=== PATIENT | female | born 1960 | race Asian ===

== ENCOUNTER 2022-03-11 13:57 | Outpatient (CLI) | payer OTHER, MEDICARE, MEDICAID, SELFPAY | END 2022-03-11 13:58 | disposition home or self-care (01) | LOC: AMB 03-18 09:04 | PROVIDERS: Visit Provider Family Medicine | DX: E11.649 Type 2 diabetes mellitus with hypoglycemia without coma (principal); R41.82 Altered mental status, unspecified | CPT/HCPCS: A0425; A0427 ==

== ENCOUNTER 2022-03-11 14:33 | Observation (INO) | payer OTHER, MEDICARE, MEDICAID, SELFPAY ==
[2022-03-11] VITALS (11 sets, daily range): BP systolic 127–177; BP diastolic 69–86; PULSE 56–62; RESP 10–19; TEMP 36–36.6; O2SAT 98–100; BMI 19.3
--- NOTE | 2022-03-11 15:26 | CRLHL7_ITS ---
For Patients: As a result of the Century Cures Act, medical imaging exams and procedure reports are released immediately into your electronic medical record. You may view this report before your referring provider. If you have questions, please contact your health care provider. INDICATION: AMS. TECHNIQUE: Chest 1 views. COMPARISON: None. FINDINGS/IMPRESSION: Cardiovascular and mediastinum: Mild cardiomegaly. Calcific atherosclerosis of the aorta. Lungs and pleural spaces: Subtle interstitial opacities and left upper lobe pulmonary airspace opacities, which may reflect pulmonary edema, infection.. Possible small left-sided pleural effusion. Bones and soft tissues: Scoliosis of the thoracic spine.. Possible mixed density lesion at the superior aspect of the right scapula. Dictated by Horacio Oneill MD @ 03/11/2022 5:41:25 PM (Electronically Signed)
[2022-03-11 15:53] LABS: Glucose, Point-of-Care* 290 mg/dl (60-115)
[2022-03-11 16:16] LABS: HCO3 VBG 27 mmol/L (21-28); PCO2 VBG 48 mmHG (40-50); PO2 VBG 52.9 mmHG (25-47); pH VBG 7.354 (7.32-7.43)
[2022-03-11] MEDS: 0.9 % SODIUM CHLORIDE 1000 ml 1,000 ML IV (16:18)
--- NOTE | 2022-03-11 16:27 | ED.NURSE ---
Shama monitor alerted daughter to low blood sugar. Shama read 63. POC glucose done at bedside with hospital glucometer, this read 80. updated.
--- NOTE | 2022-03-11 16:31 | ED.NURSE ---
[facility] to [facility], [facility]. Can fax SY to [phone]
[2022-03-11 16:41] LABS: Alanine Aminotransferase* 12 U/L (4-35); Albumin* 3.3 g/dL (3.3-5.0); Alkaline Phosphatase* 32 U/L (40-150); Aspartate Amino Transferase* 27 U/L (12-35); Bilirubin Direct* 0.3 mg/dL (0.0-0.5); Bilirubin Total* 0.6 mg/dL (0.1-1.5); Total Protein* 5.7 g/dL (6.0-8.3)
[2022-03-11 16:43] LABS: C Reactive Protein* 0.6 mg/dL (0.5-1.0)
[2022-03-11 16:45] LABS: Glucose, Point-of-Care* 80 mg/dl (60-115)
[2022-03-11 16:48] LABS: Ethanol* < 0.01 % (0.01-0.03)
[2022-03-11 16:53] LABS: Troponin I* 0.01 ng/mL (0.01-0.04)
--- NOTE | 2022-03-11 16:53 | ED.NURSE ---
[facility] completed [facility] to [facility]
--- NOTE | 2022-03-11 17:24 | CRLHL7_ITS ---
For Patients: As a result of the Century Cures Act, medical imaging exams and procedure reports are released immediately into your electronic medical record. You may view this report before your referring provider. If you have questions, please contact your health care provider. INDICATION: Transient alteration of awareness TECHNIQUE: CT Head without i.v. contrast. Coronal and sagittal reformats were obtained. COMPARISON: None FINDINGS: CSF space: There is a sclerotic, heterogeneous finger-like bony excrescence extending from the superior margin of the cyst left sphenoid sinus into the left suprasellar cistern that measures 0.9 x 2.3 x 2 cm (AP x RL x CC). Brain: No evidence of mass, acute infarction or hemorrhage is seen. No mass-effect or midline shift is seen. Encephalomalacia is present within the left frontal lobe, right temporal lobe, and right cerebellar hemisphere. Calvarium: Mucosal thickening opacification of the left frontal sinus, anterior ethmoid air cells and right sphenoid sinus is seen. The mastoid air cells are clear. The visualized orbits are grossly unremarkable. The patient is status post left frontal craniotomy. IMPRESSIONS: 1. No evidence of acute infarction, intracranial hemorrhage, or mass-effect seen. 2. There is a sclerotic, heterogeneous finger-like bony excrescence extending from the superior margin of the cyst left sphenoid sinus into the left suprasellar cistern that measures 0.9 x 2.3 x 2 cm (AP x RL x CC). Comparison with any prior outside imaging is recommended. Dictated by Zoran Rivera MD @ 03/11/2022 7:01:08 PM Please note that all CT scans at this facility use dose modulation, iterative reconstruction, and/or weight-based dosing when appropriate to reduce radiation dose to as low as reasonably achievable. Dictated by: Zoran Rivera MD @ 03/11/2022 19:01:13 (Electronically Signed)
[2022-03-11 17:25] LABS: SARS PCR* Negative SARS-CoV-2 (Negative)
--- NOTE | 2022-03-11 17:34 | ED_ITS ---
HPI - Altered Mental Status General Chief Complaint: Altered Mental Status Stated Complaint: Confused Time Seen by Provider: 03/11/22 15:04 Source: family, EMS and RN notes reviewed History of Present Illness HPI narrative: At time of initial evaluations no outside records are available 61-year-old woman brought by daughter to the emergency department for evaluation for altered mental status. Daughter called EMS due to worsening mental status, level of alertness, decreasing responsiveness, since last night. Poor appetite. Does have a history of diabetes. Blood sugar measured this morning at 43. EMS noted a blood sugar in the 200s I believe with no change in alertness. Daughter notes so blood sugar monitor sensor been going off overnight. She gave supplemental glucose tried to get her to drink juice even frosting some of this was accepted some of it was spent out. Eventually gave glucagon. Final straw was trying to get to the bathroom today and chest her eyes glazed over. Apparently Ms. Guerrero was hospitalized at the [facility] in [place] for about 3 weeks for a bowel obstruction discharge last week to daughter's residence. During hospitalization daughter reports increased from 5-8 units of Lantus and NovoLog was discontinued she was initiated on metformin. Daughter notes patient to be particularly sensitive to insulin. EMS noted blood sugar 394 on arrival Hospital, or check was reported at 280. has moved to the area in November of 2021 from [place] to live with her daughter. Rather complicated past medical history with new diagnosis of diabetes type 2. Had CVA in 2020. There is brain tumor resection in 1997. In October of this year was reported to have a mass in the uterus that sounds like resulted in more systemic infection, likely abscess, with resistant organisms. Failure to thrive Medications are noted to be (signing), metformin, Lantus, atorvastatin, bisacodyl, clopidogrel, carvedilol, desmopressin, ferrous sulfate, glucagon, levothyroxine, losartan, mirtazapine, prednisone, risperidone, senna Related Data Home Medications Medication Instructions Recorded Confirmed Lactobacillus acidophilus 100 mmu cells PO DAILY 03/12/22 03/12/22 acetaminophen 325 mg tablet 325 - 650 mg PO QID PRN 03/12/22 03/12/22 atorvastatin 20 mg tablet 20 mg PO DAILY 03/12/22 03/12/22 bisacodyl 5 mg tablet,delayed 10 mg PO DAILY PRN 03/12/22 03/12/22 release (Dulcolax (bisacodyl)) calcium carbonate 500 mg calcium 500 mg PO DAILY 03/12/22 03/12/22 (1,250 mg) tablet (Oyster Shell Calcium) carboxymethylcellulose sodium 1 % 2 drp OPHTHALMIC (EYE) QID PRN 03/12/22 03/12/22 eye liquid gel drops (Lubricant Dry Eye Relief) carvedilol 3.125 mg tablet 3.125 mg PO BID 03/12/22 03/12/22 cholecalciferol (vitamin D3) 125 5,000 unit PO DAILY 03/12/22 03/12/22 mcg (5,000 unit) tablet clopidogrel 75 mg tablet (Plavix) 75 mg PO DAILY 03/12/22 03/12/22 cranberry 500 mg capsule 500 mg PO DAILY 03/12/22 03/12/22 desmopressin 10 mcg/spray (0.1 mL) See Rx Instructions INTRANASAL 03/12/22 03/12/22 nasal spray .TWICE WEEKLY ferrous sulfate 325 mg (65 mg 325 mg PO DAILY 03/12/22 03/12/22 iron) tablet insulin glargine 100 unit/mL (3 8 unit SUBCUT QAM 03/12/22 03/12/22 mL) subcutaneous pen levothyroxine 75 mcg tablet 75 mcg PO DAILY 03/12/22 03/12/22 losartan 25 mg tablet 25 mg PO DAILY 03/12/22 03/12/22 metformin 500 mg tablet,extended 1,000 mg PO DAILY 03/12/22 03/12/22 release 24 hr mirtazapine 30 mg tablet 30 mg PO HS 03/12/22 03/12/22 omega-3 fatty acids-vitamin E 1 cap PO DAILY 03/12/22 03/12/22 1,000 mg capsule polyethylene glycol 3350 17 17 g PO DAILY 03/12/22 03/12/22 gram/dose oral powder (Miralax) prednisone 5 mg tablet 5 mg PO DAILY 03/12/22 03/12/22 risperidone 0.25 mg tablet 0.25 mg PO HS 03/12/22 03/12/22 sennosides 8.6 mg tablet (senna) 17.2 mg PO DAILY PRN 03/12/22 03/12/22 vit C 250 mg-E 90 mg-zinc 40 1 tab PO DAILY 03/12/22 03/12/22 mg-copper 1 [id number] chew tablet (PreserVision AREDS-2) Allergies Allergy/AdvReac Type Severity Reaction Status Date / Time ibuprofen Allergy Unknown Verified 03/11/22 23:34 asprin Allergy Unknown Uncoded 03/11/22 23:34 Review of Systems Status of ROS: Reports: unobtainable due to medical condition Narrative: Did query though daughter [facility] Medical History (Updated 03/13/22 @ 11:28 by Justin Martinez MD) Acute encephalopathy Brain tumor Cognitive impairment Constipation CVA (cerebral vascular accident) Depression Diarrhea Failure to thrive in adult Hypertension 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 Pyometra Recurrent urinary tract infection Small bowel obstruction Unspecified behavioral syndromes associated with physiological disturbances and physical factors Uterine abscess Surgical History S/P brain surgery Social History Highest level of school completed/degree received: Associate degree: occupational, technical, vocational program Smoking Status: Never smoker Do you use any of these nicotine containing products: None Second hand tobacco smoke exposure: No How often do you have a drink containing alcohol: never AUDIT-C Alcohol total score: 0 Non-prescribed substance use: denies use Caffeine: Yes (1 cup per day) service: Yes Exam Narrative: Exam Narrative: Smaller stature. Has been well cared for. Eyebrows are penciled in. Cranial nerves 2-12 to be grossly intact; hard of hearing. Hearing aids replaced during exam but does not seem to affect her interaction Supporting airway, breathing easily. GCS of 12. Does not spontaneously initiated any interaction. Will open eyes to inquiry or with manipulation of extremities -- Will say Ow especially when manipulating arm with her IV in it on the left. Also spoke a few sentences in the language that was not Malay. does demonstrate tone in the upper extremities. Hard to elicit in the lower, just let them fall. Skin is warm and dry. Is well perfused peripherally. There is no extremity edema. Head looks to be acutely atraumatic. Neck is supple. Lungs breath sounds throughout. Equal chest rise/expansion and excursion. No indication of trauma on her back. CV RRR to bradycardic. No murmurs rubs or gallops appreciated. Abdomen is soft appears to be nontender. Oropharynx is moist without erythema. Const: Vital Signs, click to edit/add: Vital Signs - 24 hr 03/11/22 14:35 03/11/22 15:30 03/11/22 16:00 Temperature 96.8 F L Pulse Rate [Right Pulse Oximeter] 60 58 L 60 Respiratory Rate 18 14 14 Blood Pressure [Ri ght Upper Arm] 147/71 H 127/74 140/84 H Pulse Oximetry 98 98 99 03/11/22 16:30 03/11/22 17:00 03/11/22 17:06 Temperature Pulse Rate [Right Pulse Oximeter] 61 57 L 57 L Respiratory Rate 19 14 10 L Blood Pressure [Ri ght Upper Arm] 158/86 H 155/74 H Pulse Oximetry 98 100 99 Documenting provider has reviewed patient's vital signs: yes Course Course Hospital Course: Shortly after arrival here blood sugar rechecked at 80 as point of care glucose. Mental status has not changed. Blood sugar around an hour later is 32. To be dosed with D50 and will likely need to initiate drip as she is disinclined towards any oral ingestion. Given cerebrovascular and tumor history, we will be checking a CT head. There are no localizing symptoms otherwise to suggest ischemic stroke. Symptoms seem to be related to either overwhelming infection or metabolic issue or mental health. Initial EKG reviewed by me shows a sinus bradycardia 59 CT head MPRESSIONS: 1. No evidence of acute infarction, intracranial hemorrhage, or mass-effect seen. 2. There is a sclerotic, heterogeneous finger-like bony excrescence extending from the superior margin of the cyst left sphenoid sinus into the left suprasellar cistern that measures 0.9 x 2.3 x 2 cm (AP x RL x CC). Comparison with any prior outside imaging is recommended. Dictated by Zoran Rivera MD @ 03/11/2022 7:01:08 PM Chest xray Towards the end of her time in the ER rec[facility] I don't believe that blood sugars are the predominant issue affecting Ms. Guerrero's cognition/alertness. I believe this is more related to mental health and organic brain injury. Ms. Guerrero did at one point in reassessment, open eyes spontaneously and spoke very clearly to me requesting her many layers of blankets to be tucked up closer to her neck. she was able to articulate where she was upon questioning. Vital Signs Vital signs: Initial Vital Signs Temperature 96.8 F L 03/11/22 14:35 Temperature Source Temporal Artery Scan 03/11/22 14:35 Pulse Rate 60 03/11/22 14:35 Pulse Rhythm 03/11/22 14:35 Pulse Strength 0+ Absent 03/11/22 14:35 Respiratory Rate 18 03/11/22 14:35 Blood Pressure 147/71 H 03/11/22 14:35 Blood Pressure Mean 96 03/11/22 14:35 Blood Pressure Position Sitting 03/11/22 14:35 Pulse Oximetry 98 03/11/22 14:35 Oxygen Delivery Method 03/11/22 14:35 Vital Signs Temperature 96.8 F L 03/11/22 14:35 Pulse Rate 60 03/11/22 14:35 Respiratory Rate 18 03/11/22 14:35 Blood Pressure 147/71 H 03/11/22 14:35 Pulse Oximetry 98 03/11/22 14:35 Temperature 98 F 03/13/22 20:25 Pulse Rate 83 03/14/22 04:00 Respiratory Rate 16 03/14/22 04:00 Blood Pressure 133/68 03/14/22 04:00 Pulse Oximetry 97 03/14/22 04:00 MDM - Altered Mental Status MDM Narrative Medical decision making narrative: See above in course needs to be admitted to monitor/correct/stabilize blood sugars at a minimum. complicated case ID without beds. Dr. Martinez thankfully accepting for admission. Discussed case extensively with him. Medical Records Attestation: I reviewed the patient's medical records. 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 Labs: Lab Results 03/11/22 03/11/22 03/11/22 Range/Units 14:30 16:08 16:08 WBC (4.50-11.00) K/uL RBC (4.00-5.20) m/uL Hgb (12.0-16.0) gm/dL Hct (33.0-51.0) % MCV (80-100) fL MCH (26-34) pg MCHC (32-36) gm/dL RDW Coeff of Shanna (11.5-15.5) % Plt Count (140-440) K/uL Neut % (Auto) (42.0-72.0) % Lymph % (Auto) (20-44) % [place] % (Auto) (0.0-11.0) % Eos % (Auto) (0.0-7.0) % Baso % (Auto) (0.0-3.0) % Neut # (Auto) (1.7-7.0) K/uL Lymph # (Auto) (0.90-2.90) K/uL [place] # (Auto) (0.00-0.90) K/UL Eos # (Auto) (0.00-0.50) K/uL Baso # (Auto) (0.00-0.30) K/uL Abs Immat Gran (auto) (0.00-0.30) K/uL VBG pH 7.354 (7.32-7.43) VBG pCO2 48 (40-50) mmHG VBG pO2 52.9 H (25-47) mmHG VBG HCO3 27 (21-28) mmol/L Sodium 129 L (135-149) mmol/L Potassium 3.1 L (3.6-5.1) mmol/L Chloride 99 (96-114) mmol/L Carbon Dioxide 25 (20-32) mmol/L BUN 20 (7-30) mg/dL Creatinine 0.6 (0.5-1.5) mg/dL Glucose 109 (60-115) mg/dL Venous Lactic Acid (Serial Order) Cancelled Calcium 7.9 L (8.4-10.6) mg/dL Total Bilirubin 0.6 (0.1-1.5) mg/dL Direct Bilirubin 0.3 (0.0-0.5) mg/dL AST 27 (12-35) U/L ALT 12 (4-35) U/L Alkaline Phosphatase 32 L (40-150) U/L Troponin I 0.01 (0.01-0.04) ng/mL C-Reactive Protein 0.6 (0.5-1.0) mg/dL Total Protein 5.7 L (6.0-8.3) g/dL Albumin 3.3 (3.3-5.0) g/dL TSH (0.270-4.20) uIU/mL Urine Color (Yellow) Urine Appearance (Clear) Urine pH (5.0-8.5) Ur Specific [place] (1.000-1.030) Urine Protein (Negative) Urine Glucose (UA) (Negative) Urine Ketones (Negative) Urine Blood (Negative) Urine Nitrite (Negative) Urine Bilirubin (Negative) Urine Urobilinogen (0.2-1.0) Ur Leukocyte Esterase (Negative) Urine RBC (0-2) Urine WBC (0-5) Ur Squamous Epith Cells Urine Bacteria (None) Urine Yeast (None) Urine Opiates Screen (Negative) Ur Oxycodone Screen (Negative) Urine Methadone Screen (Negative) Ur Propoxyphene Screen (Negative) Ur Barbiturates Screen (Negative) U Tricyclic Antidepress (Negative) Ur Phencyclidine Scrn (Negative) Ur Amphetamines Screen (Negative) U Methamphetamines Scrn (Negative) U Benzodiazepines Scrn (Negative) Urine Cocaine Screen (Negative) U Marijuana (THC) Screen (Negative) Ur Drug Screen Comment Ethyl Alcohol < 0.01 L (0.01-0.03) % SARS-CoV-2 (PCR) (Negative) POC Glucose 290 H (60-115) mg/dl 03/11/22 03/11/22 03/11/22 Range/Units 16:08 16:09 16:11 WBC 9.04 (4.50-11.00) K/uL RBC 3.21 L (4.00-5.20) m/uL Hgb 9.7 L (12.0-16.0) gm/dL Hct 29.5 L (33.0-51.0) % MCV 92 (80-100) fL MCH 30 (26-34) pg MCHC 33 (32-36) gm/dL RDW Coeff of Shanna 13.1 (11.5-15.5) % Plt Count 287 (140-440) K/uL Neut % (Auto) 63.9 (42.0-72.0) % Lymph % (Auto) 24.2 (20-44) % [place] % (Auto) 8.2 (0.0-11.0) % Eos % (Auto) 2.1 (0.0-7.0) % Baso % (Auto) 0.9 (0.0-3.0) % Neut # (Auto) 5.78 (1.7-7.0) K/uL Lymph # (Auto) 2.19 (0.90-2.90) K/uL [place] # (Auto) 0.70 (0.00-0.90) K/UL Eos # (Auto) 0.19 (0.00-0.50) K/uL Baso # (Auto) 0.08 (0.00-0.30) K/uL Abs Immat Gran (auto) 0.06 (0.00-0.30) K/uL VBG pH (7.32-7.43) VBG pCO2 (40-50) mmHG VBG pO2 (25-47) mmHG VBG HCO3 (21-28) mmol/L Sodium (135-149) mmol/L Potassium (3.6-5.1) mmol/L Chloride (96-114) mmol/L Carbon Dioxide (20-32) mmol/L BUN (7-30) mg/dL Creatinine (0.5-1.5) mg/dL Glucose (60-115) mg/dL Venous Lactic Acid (Serial Order) Calcium (8.4-10.6) mg/dL Total Bilirubin (0.1-1.5) mg/dL Direct Bilirubin (0.0-0.5) mg/dL AST (12-35) U/L ALT (4-35) U/L Alkaline Phosphatase (40-150) U/L Troponin I (0.01-0.04) ng/mL C-Reactive Protein (0.5-1.0) mg/dL Total Protein (6.0-8.3) g/dL Albumin (3.3-5.0) g/dL TSH 0.115 L (0.270-4.20) uIU/mL Urine Color (Yellow) Urine Appearance (Clear) Urine pH (5.0-8.5) Ur Specific [place] (1.000-1.030) Urine Protein (Negative) Urine Glucose (UA) (Negative) Urine Ketones (Negative) Urine Blood (Negative) Urine Nitrite (Negative) Urine Bilirubin (Negative) Urine Urobilinogen (0.2-1.0) Ur Leukocyte Esterase (Negative) Urine RBC (0-2) Urine WBC (0-5) Ur Squamous Epith Cells Urine Bacteria (None) Urine Yeast (None) Urine Opiates Screen (Negative) Ur Oxycodone Screen (Negative) Urine Methadone Screen (Negative) Ur Propoxyphene Screen (Negative) Ur Barbiturates Screen (Negative) U Tricyclic Antidepress (Negative) Ur Phencyclidine Scrn (Negative) Ur Amphetamines Screen (Negative) U Methamphetamines Scrn (Negative) U Benzodiazepines Scrn (Negative) Urine Cocaine Screen (Negative) U Marijuana (THC) Screen (Negative) Ur Drug Screen Comment Ethyl Alcohol (0.01-0.03) % SARS-CoV-2 (PCR) Negative SARS-CoV-2 (Negative) POC Glucose (60-115) mg/dl 03/11/22 03/11/22 03/11/22 Range/Units 16:20 17:36 18:02 WBC (4.50-11.00) K/uL RBC (4.00-5.20) m/uL Hgb (12.0-16.0) gm/dL Hct (33.0-51.0) % MCV (80-100) fL MCH (26-34) pg MCHC (32-36) gm/dL RDW Coeff of Shanna (11.5-15.5) % Plt Count (140-440) K/uL Neut % (Auto) (42.0-72.0) % Lymph % (Auto) (20-44) % [place] % (Auto) (0.0-11.0) % Eos % (Auto) (0.0-7.0) % Baso % (Auto) (0.0-3.0) % Neut # (Auto) (1.7-7.0) K/uL Lymph # (Auto) (0.90-2.90) K/uL [place] # (Auto) (0.00-0.90) K/UL Eos # (Auto) (0.00-0.50) K/uL Baso # (Auto) (0.00-0.30) K/uL Abs Immat Gran (auto) (0.00-0.30) K/uL VBG pH (7.32-7.43) VBG pCO2 (40-50) mmHG VBG pO2 (25-47) mmHG VBG HCO3 (21-28) mmol/L Sodium (135-149) mmol/L Potassium (3.6-5.1) mmol/L Chloride (96-114) mmol/L Carbon Dioxide (20-32) mmol/L BUN (7-30) mg/dL Creatinine (0.5-1.5) mg/dL Glucose (60-115) mg/dL Venous Lactic Acid (Serial Order) Calcium (8.4-10.6) mg/dL Total Bilirubin (0.1-1.5) mg/dL Direct Bilirubin (0.0-0.5) mg/dL AST (12-35) U/L ALT (4-35) U/L Alkaline Phosphatase (40-150) U/L Troponin I (0.01-0.04) ng/mL C-Reactive Protein (0.5-1.0) mg/dL Total Protein (6.0-8.3) g/dL Albumin (3.3-5.0) g/dL TSH (0.270-4.20) uIU/mL Urine Color (Yellow) Urine Appearance (Clear) Urine pH (5.0-8.5) Ur Specific [place] (1.000-1.030) Urine Protein (Negative) Urine Glucose (UA) (Negative) Urine Ketones (Negative) Urine Blood (Negative) Urine Nitrite (Negative) Urine Bilirubin (Negative) Urine Urobilinogen (0.2-1.0) Ur Leukocyte Esterase (Negative) Urine RBC (0-2) Urine WBC (0-5) Ur Squamous Epith Cells Urine Bacteria (None) Urine Yeast (None) Urine Opiates Screen (Negative) Ur Oxycodone Screen (Negative) Urine Methadone Screen (Negative) Ur Propoxyphene Screen (Negative) Ur Barbiturates Screen (Negative) U Tricyclic Antidepress (Negative) Ur Phencyclidine Scrn (Negative) Ur Amphetamines Screen (Negative) U Methamphetamines Scrn (Negative) U Benzodiazepines Scrn (Negative) Urine Cocaine Screen (Negative) U Marijuana (THC) Screen (Negative) Ur Drug Screen Comment Ethyl Alcohol (0.01-0.03) % SARS-CoV-2 (PCR) (Negative) POC Glucose 80 32 L* 232 H (60-115) mg/dl 0703/11/22 03/11/22 Range/Units 19:07 19:07 21:00 WBC (4.50-11.00) K/uL RBC (4.00-5.20) m/uL Hgb (12.0-16.0) gm/dL Hct (33.0-51.0) % MCV (80-100) fL MCH (26-34) pg MCHC (32-36) gm/dL RDW Coeff of Shanna (11.5-15.5) % Plt Count (140-440) K/uL Neut % (Auto) (42.0-72.0) % Lymph % (Auto) (20-44) % [place] % (Auto) (0.0-11.0) % Eos % (Auto) (0.0-7.0) % Baso % (Auto) (0.0-3.0) % Neut # (Auto) (1.7-7.0) K/uL Lymph # (Auto) (0.90-2.90) K/uL [place] # (Auto) (0.00-0.90) K/UL Eos # (Auto) (0.00-0.50) K/uL Baso # (Auto) (0.00-0.30) K/uL Abs Immat Gran (auto) (0.00-0.30) K/uL VBG pH (7.32-7.43) VBG pCO2 (40-50) mmHG VBG pO2 (25-47) mmHG VBG HCO3 (21-28) mmol/L Sodium (135-149) mmol/L Potassium (3.6-5.1) mmol/L Chloride (96-114) mmol/L Carbon Dioxide (20-32) mmol/L BUN (7-30) mg/dL Creatinine (0.5-1.5) mg/dL Glucose (60-115) mg/dL Venous Lactic Acid (Serial Order) Calcium (8.4-10.6) mg/dL Total Bilirubin (0.1-1.5) mg/dL Direct Bilirubin (0.0-0.5) mg/dL AST (12-35) U/L ALT (4-35) U/L Alkaline Phosphatase (40-150) U/L Troponin I (0.01-0.04) ng/mL C-Reactive Protein (0.5-1.0) mg/dL Total Protein (6.0-8.3) g/dL Albumin (3.3-5.0) g/dL TSH (0.270-4.20) uIU/mL Urine Color Yellow (Yellow) Urine Appearance Clear (Clear) Urine pH 7.0 (5.0-8.5) Ur Specific [place] 1.025 (1.000-1.030) Urine Protein Negative (Negative) Urine Glucose (UA) Trace A (Negative) Urine Ketones Negative (Negative) Urine Blood Negative (Negative) Urine Nitrite Negative (Negative) Urine Bilirubin Negative (Negative) Urine Urobilinogen 0.2 (0.2-1.0) Ur Leukocyte Esterase Negative (Negative) Urine RBC 0-2 (0-2) Urine WBC 0-2 (0-5) Ur Squamous Epith Cells Not Reportable Urine Bacteria Few A (None) Urine Yeast Moderate A (None) Urine Opiates Screen Negative (Negative) Ur Oxycodone Screen Negative (Negative) Urine Methadone Screen Negative (Negative) Ur Propoxyphene Screen Negative (Negative) Ur Barbiturates Screen Negative (Negative) U Tricyclic Antidepress Negative (Negative) Ur Phencyclidine Scrn Negative (Negative) Ur Amphetamines Screen Negative (Negative) U Methamphetamines Scrn Negative (Negative) U Benzodiazepines Scrn Negative (Negative) Urine Cocaine Screen Negative (Negative) U Marijuana (THC) Screen Negative (Negative) Ur Drug Screen Comment See Note Ethyl Alcohol (0.01-0.03) % SARS-CoV-2 (PCR) (Negative) POC Glucose 239 H (60-115) mg/dl Discharge Plan Discharge Clinical Impression: Hypoglycemia, Altered mental status Patient Disposition: Admitted As Inpatient Condition: Stable
--- NOTE | 2022-03-11 17:40 | ED.NURSE ---
Fluids infused. FSG rechecked and 32. notified and 50% Dextrose 25g administered via left AC IV.
[2022-03-11 17:44] LABS: Basophils Absolute Auto 0.08 K/uL (0.00-0.30); Basophils Percent Auto 0.9 % (0.0-3.0); Eosinophils Absolute Auto 0.19 K/uL (0.00-0.50); Eosinophils Percent Auto 2.1 % (0.0-7.0); Hematocrit 29.5 % (33.0-51.0); Hemoglobin* 9.7 gm/dL (12.0-16.0); Immature Granulocytes Abs Auto 0.06 K/uL (0.00-0.30); Lymphocytes Absolute Auto 2.19 K/uL (0.90-2.90); Lymphocytes Percent Auto 24.2 % (20-44); Mean Corpuscular HGB Conc 33 gm/dL (32-36); Mean Corpuscular Hemoglobin 30 pg (26-34); Mean Corpuscular Volume 92 fL (80-100); Monocytes Percent Auto 8.2 % (0.0-11.0); Neutrophils Absolute Auto 5.78 K/uL (1.7-7.0); Neutrophils Percent Auto 63.9 % (42.0-72.0); Platelet Count* 287 K/uL (140-440); RDW Coefficient of Variation % 13.1 % (11.5-15.5); Red Blood Count 3.21 m/uL (4.00-5.20); White Blood Count* 9.04 K/uL (4.50-11.00)
[2022-03-11 17:48] LABS: Glucose, Point-of-Care* 32 mg/dl (60-115)
[2022-03-11 17:52] LABS: Slide Review Reflex No
--- NOTE | 2022-03-11 18:06 | ED.NURSE ---
FSG recheck since critical [id number] at 1802. MD updated
[2022-03-11 18:12] LABS: Glucose, Point-of-Care* 232 mg/dl (60-115)
[2022-03-11 18:17] LABS: Blood Urea Nitrogen* 20 mg/dL (7-30); Carbon Dioxide* 25 mmol/L (20-32); Chloride* 99 mmol/L (96-114); Creatinine* 0.6 mg/dL (0.5-1.5); Estimated Glomerular Filt Rate 102.69; Potassium* 3.1 mmol/L (3.6-5.1); Sodium* 129 mmol/L (135-149)
[2022-03-11 18:18] LABS: Calcium* 7.9 mg/dL (8.4-10.6); Glucose* 109 mg/dL (60-115)
[2022-03-11] MEDS: DEXTROSE 50 % SYRINGE IVP (18:18)
[2022-03-11] MEDS: 5 % DEXTROSE/0.9% SOD CHLORIDE 1,000 ML 125 ML IV (18:42)
[2022-03-11 18:45] LABS: Thyroid Stimulating Hormone* 0.115 uIU/mL (0.270-4.20)
--- NOTE | 2022-03-11 19:16 | ED.NURSE ---
Straight Cath done to obtain UA/UC. Drained 300ml light/clear urine.
[2022-03-11 19:21] LABS: Appearance Urine Clear (Clear); Bilirubin Urine Negative (Negative); Blood Urine Negative (Negative); Color Urine Yellow (Yellow); Glucose Urine Trace (Negative); Ketones Urine Negative (Negative); Leukocyte Esterase Urine Negative (Negative); Nitrite Urine Negative (Negative); Protein Urine Negative (Negative); Specific Gravity Urine 1.025 (1.000-1.030); Urobilinogen Urine 0.2 (0.2-1.0)
[2022-03-11 19:43] LABS: RBC Urine 0-2 (0-2)
[2022-03-11 19:46] LABS: Bacteria Urine Few; WBC Urine 0-2 (0-5)
[2022-03-11 21:18] LABS: Glucose, Point-of-Care* 239 mg/dl (60-115)
--- NOTE | 2022-03-11 22:00 | ED.NURSE ---
Patient complained of pain in IV. No obvious sign of infiltration but IV pulled to rotate IV site. Will transfer to floor with and greenhouse assistant will insert new IV.
--- NOTE | 2022-03-11 22:27 | PM.IMHP1 ---
Hospitalist- H&P: HPI History of Present Illness Time Seen by Provider: 22:26 Date Seen: 03/11/22 Chief complaint: Confused Narrative: Oneyda Guerrero is a 61 year old female brought in by her daughter for hypoglycemia. patient has a long and complicated history outlined below. The proximal reason for presentation today is hypoglycemia. Patient has probable type 2 diabetes but with a low C-peptide. . She has been treated with Lantus 8 units daily plus metformin 1000 mg daily since being discharged from the [facility] week ago. She got her normal medicines yesterday and had blood sugars around 200 in the morning. She stopped eating during the day despite her daughter's urging her to eat. Her daughter continue to watch her blood sugar and found her blood sugars declining down to 50 and below during the night. The patient refused glucose supplements from her daughter and when her daughter tried to force glucose gel and glucose tablets into her mouth she spit them out. daughter was up all night trying to force her mom to take in carbohydrates and checking her blood sugar. Patient was living in [place] last summer. It sounds like she was not doing well at the time. Her son was supposed to be taking care of her but it sounds like she was neglected to some degree. She was losing a lot of weight. There is some question of whether there was ongoing mental health problems contributing as well. She was hospitalized in [place] after a stroke in May 2021 . Also diagnosed with a UTI at that time. Unclear what specific affects the stroke caused at that time. She was sent to rehab from the hospital. She ended up back in the hospital in August with apparently another stroke and UTI. She was again sent to rehab. She apparently has had episodes where she seems delirious or confused during this time as well. The daughter is only contact was by phone as she was unable to visit due to COVID. Sounds like she was also not eating well and not participating with rehab cares. Possibly refusing medications. She was diagnosed with a uterine infection. This was apparently drained twice, most recently in December. She was moved to [place] with her daughter in November. 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 She had constipation with nausea and vomiting. she had evaluation from Infectious Disease regarding her pyometra and they recommended no further investigation as she was not having symptoms And had a normal CT. 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 They recommended a C-peptide to evaluate her diabetes. Her C-peptide was borderline low. She was discharged on Lantus and metformin. He had previously been on NovoLog but there was concern that she would not be able to manage it. She had a psychiatry consult which according to the daughter was quite limited and primarily focused on whether not she was suicidal and was felt that she was at low risk. She has been started on risperidone and continued on mirtazapine for possible depression. She had an MRI MRA of the brain which was stable and otherwise unremarkable for new tumor or new stroke. Her daughter gives mostly history today she reports that there have been substantial behavioral problems since she moved to [place]. The daughter believes much of this started with her stroke in May but there are suggestions at there were significant issues prior to that including her inability to live independently and her weight loss. There may have been prior mental illness diagnosis including depression which may be longstanding. The behavioral problems the daughter has witnessed include observing that she is refusing cares including refusing to eat and refusing to do any activity. She can refuse her medications and even refused to cooperate with her daughter trying to provide her care. When she is doing better she exhibits more impulsive behavior and will even do quite unsafe behaviors. On 1 occasion she was sitting in a wheelchair at the top of a driveway that was quite steep and she had unlocked the wheels. The daughter lock the wheelchair and asked her mom to be more careful. Few minutes later the wheelchair was unlocked again. The daughter was driving down the road on 1 occasion when her mom opened the door while they were traveling at about 30 miles an hour. These incidences led to questions about suicidality. At time she can be quite confused and there was a question of some form of cognitive impairment. This is hard to assess as the patient often is relatively non communicative. That is the case when I visit with her now when she will answer simple questions only in a limited fashion. Review of Systems Narrative: the only symptom the patient report to me is she is feeling cold. See above for other details of the past 10 months. According to the daughter she has been hospitalized 9 times in the past 10 months. 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 She reports that her mom generally takes the medications from her but has been resistant to taking medications from maritza Allergies Allergy/AdvReac Type Severity Reaction Status Date / Time No Known Drug Allergies Allergy Verified 03/11/22 17:21 Exam Narrative: Exam Narrative: She is lying in the bed covered with multiple layers of blankets. She has dysconjugate gaze which is secondary to her surgery for pituitary tumor. Oropharynx with moist mucous membranes. Neck is supple without mass or adenopathy. Respirations are clear to auscultation. Breathing is unlabored. Cardiovascular: S1, S2, regular rate and rhythm. Abdomen: Bowel sounds active. Abdomen is soft. She has mild suprapubic discomfort which she describes as bladder discomfort and urge to void. Abdomen is otherwise without tenderness or mass. extremities are somewhat cool to touch. She has intact pulses. She moves all 4 extremities well. Const: Vital Signs, click to edit/add: Vital Signs - 24 hr 03/11/22 14:35 03/11/22 15:30 03/11/22 16:00 Temperature 96.8 F L Pulse Rate [Right Pulse Oximeter] 60 58 L 60 Respiratory Rate 18 14 14 Blood Pressure [Ri ght Upper Arm] 147/71 H 127/74 140/84 H Pulse Oximetry 98 98 99 03/11/22 16:30 03/11/22 17:00 03/11/22 17:06 Temperature Pulse Rate [Right Pulse Oximeter] 61 57 L 57 L Respiratory Rate 19 14 10 L Blood Pressure [Ri ght Upper Arm] 158/86 H 155/74 H Pulse Oximetry 98 100 99 03/11/22 21:00 Temperature Pulse Rate [Right Pulse Oximeter] 57 L Respiratory Rate 13 Blood Pressure [Ri ght Upper Arm] 177/86 H Pulse Oximetry 99 Documenting provider has reviewed patient's vital signs: yes Hospitalist - H&P: Result Labs Labs: Short CBC 03/11/22 Range/Units 16:11 WBC 9.04 (4.50-11.00) K/uL Hgb 9.7 L (12.0-16.0) gm/dL Hct 29.5 L (33.0-51.0) % Plt Count 287 (140-440) K/uL BMP 03/11/22 16:08 Sodium 129 L Potassium 3.1 L Chloride 99 Carbon Dioxide 25 BUN 20 Creatinine 0.6 Glucose 109 Calcium 7.9 L Cardiac Enzymes 03/11/22 Range/Units 16:08 Troponin I 0.01 (0.01-0.04) ng/mL Liver Function 03/11/22 Range/Units 16:08 Total Bilirubin 0.6 (0.1-1.5) mg/dL Direct Bilirubin 0.3 (0.0-0.5) mg/dL AST 27 (12-35) U/L ALT 12 (4-35) U/L Alkaline Phosphatase 32 L (40-150) U/L Albumin 3.3 (3.3-5.0) g/dL Urine 03/11/22 Range/Units 19:07 Urine Color Yellow (Yellow) Urine Appearance Clear (Clear) Urine pH 7.0 (5.0-8.5) Ur Specific [place] 1.025 (1.000-1.030) Urine Protein Negative (Negative) Urine Glucose (UA) Trace A (Negative) Assessment and Plan Assessment and plan (1) Cognitive impairment: Status: Acute (2) Diabetes mellitus type 1.5: Problem comment: type 2 diabetes with a borderline low C-peptide at the [facility] in February 2022 . Because her p.o. intake is very unreliable I am going to stop her Lantus and manage her with mealtime insulin only when she eats and sliding scale insulin only when her blood sugars are high for now. Status: Acute (3) Hypoglycemia: Status: Acute (4) Altered mental status: Status: Acute (5) Unspecified behavioral syndromes associated with physiological disturbances and physical factors: Problem comment: I believe this is her primary problem and she would benefit from more intensive psychiatric evaluation and management. This is not currently available. For now will manage her other medical problems and attempt to better understand her neuropsych problems. Status: Acute
[2022-03-12] MEDS: carvediloL 6.25 MG TABLET 3.125 MG PO ×3 (00:23→17:58)
[2022-03-12] MEDS: risperiDONE 0.5 MG TABLET PO ×3 (00:24→21:23)
[2022-03-12] MEDS: ATORVASTATIN 10 MG TABLET 20 MG PO ×2 (00:24→21:25)
[2022-03-12] MEDS: MIRTAZAPINE 15 MG TABLET PO ×2 (00:24→21:24)
[2022-03-12] MEDS: 5 % DEX/0.9 SOD CHL+KCL 20 mEq 1,000 ML 75 ML IV ×2 (00:26→13:45)
[2022-03-12 01:58] VITALS: BP 136/73; RESP 18; TEMP 36.6; O2SAT 99
[2022-03-12 03:06] VITALS: BP 151/68; PULSE 56; RESP 14; TEMP 36.6; O2SAT 98
--- NOTE | 2022-03-12 06:32 | PC.NURSE ---
patient sleepy but cooperative, BLACKFEET, incontinent of B&B, turn/repo/changed in bed this shift. appears to have slept well with no c/o pain, no nausea.
[2022-03-12 07:18] LABS: Basophils Absolute Auto 0.08 K/uL (0.00-0.30); Basophils Percent Auto 1.1 % (0.0-3.0); Eosinophils Absolute Auto 0.27 K/uL (0.00-0.50); Eosinophils Percent Auto 3.7 % (0.0-7.0); Hematocrit 29.7 % (33.0-51.0); Immature Granulocytes Abs Auto 0.09 K/uL (0.00-0.30); Lymphocytes Absolute Auto 2.24 K/uL (0.90-2.90); Lymphocytes Percent Auto 30.6 % (20-44); Mean Corpuscular HGB Conc 34 gm/dL (32-36); Mean Corpuscular Hemoglobin 31 pg (26-34); Mean Corpuscular Volume 91 fL (80-100); Monocytes Percent Auto 9.2 % (0.0-11.0); Neutrophils Absolute Auto 3.97 K/uL (1.7-7.0); Neutrophils Percent Auto 54.2 % (42.0-72.0); Platelet Count* 268 K/uL (140-440); RDW Coefficient of Variation % 12.9 % (11.5-15.5); Red Blood Count 3.26 m/uL (4.00-5.20); White Blood Count* 7.32 K/uL (4.50-11.00)
[2022-03-12 07:21] LABS: Slide Review Reflex No
[2022-03-12 07:29] LABS: Albumin* 2.7 g/dL (3.3-5.0); Chloride* 98 mmol/L (96-114)
[2022-03-12 07:30] LABS: Potassium* 3.1 mmol/L (3.6-5.1); Sodium* 126 mmol/L (135-149)
[2022-03-12 07:32] LABS: Aspartate Amino Transferase* 23 U/L (12-35); Bilirubin Total* 0.4 mg/dL (0.1-1.5); Carbon Dioxide* 25 mmol/L (20-32); Creatinine* 0.6 mg/dL (0.5-1.5); Est. Creatinine Clearance* 69.26; Estimated Glomerular Filt Rate 102.69
[2022-03-12 07:33] LABS: Alanine Aminotransferase* 11 U/L (4-35); Alkaline Phosphatase* 36 U/L (40-150); Blood Urea Nitrogen* 10 mg/dL (7-30); Calcium* 6.9 mg/dL (8.4-10.6); Glucose* 89 mg/dL (60-115); Total Protein* 5.2 g/dL (6.0-8.3)
[2022-03-12 07:34] LABS: Hemoglobin A1C* 8.67 % (0-5.6)
[2022-03-12 08:48] VITALS: BP 154/70; PULSE 59; RESP 16; TEMP 36.5; O2SAT 98
[2022-03-12] MEDS: CLOPIDOGREL 75 MG TABLET PO (10:17)
[2022-03-12] MEDS: predniSONE 5 MG TABLET PO (11:00)
[2022-03-12] MEDS: LOSARTAN POTASSIUM 50 MG TABLET PO (11:01)
--- NOTE | 2022-03-12 13:30 | P.IMPN_ITS ---
Progress Note: A&P Assessment and plan (1) Unspecified behavioral syndromes associated with physiological disturbances and physical factors: Problem details: I believe this is her primary problem and she would benefit from more intensive psychiatric evaluation and management. This is not currently available. For now will manage her other medical problems and attempt to better understand her neuropsych problems. Risperidone increased to 0.5 mg b.i.d. continue to monitor cooperation with cares Status: Acute (2) Cognitive impairment: Problem details: continue to assess Status: Acute (3) Diabetes mellitus type 1.5: Problem details: type 2 diabetes with a borderline low C-peptide at the [facility] in February 2022 . Because her p.o. intake is very unreliable I am going to stop her Lantus and manage her with mealtime insulin only when she eats and sliding scale insulin only when her blood sugars are high for now. 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 Subjective Time Seen by Provider: 12:00 Date Seen: 03/12/22 Interval history: 61-year-old female seen in followup of hospital admission for multiple medical problems and difficult behaviors. Nursing staff note some concerns about willingness to take medications that are prescribed. She did not eat any breakfast this morning but she has shown and interest in eating lunch. Insulin has been switched to NovoLog given for sliding scale and with mealtimes when she does eat. She has had no further hypoglycemia. She tells me today she still cold but has no other complaints. She does know she is in [facility] but does not know why she is here Other than diabetes trouble. Exam Narrative: Exam Narrative: She is sitting up in a chair. She appears in no distress. Dysconjugate gaze is noted. No other facial asymmetry. Respirations are clear to auscultation. Cardiovascular: S1, S2, regular rate and rhythm. No murmur gallop or rub. Ab domen is soft without tenderness or mass. She moves all 4 extremities well. Extremities are slightly cool to touch. Const: Vital Signs, click to edit/add: Vital Signs - 24 hr 03/11/22 14:35 03/11/22 15:30 03/11/22 16:00 Temperature 96.8 F L Pulse Rate [Left P ulse Oximeter] Pulse Rate [Right Pulse Oximeter] 60 58 L 60 Respiratory Rate 18 14 14 Blood Pressure [Le ft Arm] Blood Pressure [Ri ght Forearm] Blood Pressure [Ri ght Upper Arm] 147/71 H 127/74 140/84 H Pulse Oximetry 98 98 99 03/11/22 16:30 03/11/22 17:00 03/11/22 17:06 Temperature Pulse Rate [Left P ulse Oximeter] Pulse Rate [Right Pulse Oximeter] 61 57 L 57 L Respiratory Rate 19 14 10 L Blood Pressure [Le ft Arm] Blood Pressure [Ri ght Forearm] Blood Pressure [Ri ght Upper Arm] 158/86 H 155/74 H Pulse Oximetry 98 100 99 03/11/22 21:00 03/11/22 21:25 03/11/22 22:00 Temperature 98 F Pulse Rate [Left P ulse Oximeter] Pulse Rate [Right Pulse Oximeter] 57 L 62 Respiratory Rate 13 18 18 Blood Pressure [Le ft Arm] 136/73 Blood Pressure [Ri ght Forearm] 150/78 H Blood Pressure [Ri ght Upper Arm] 177/86 H Pulse Oximetry 99 99 100 03/11/22 22:51 03/11/22 22:53 03/12/22 01:58 Temperature 98 F 98 F Pulse Rate [Left P ulse Oximeter] Pulse Rate [Right Pulse Oximeter] 56 L Respiratory Rate 17 18 18 Blood Pressure [Le ft Arm] 136/73 136/73 Blood Pressure [Ri ght Forearm] 161/73 H Blood Pressure [Ri ght Upper Arm] Pulse Oximetry 99 99 03/12/22 03:06 03/12/22 08:48 Temperature 98 F 97.7 F Pulse Rate [Left P ulse Oximeter] 56 L 59 L Pulse Rate [Right Pulse Oximeter] Respiratory Rate 14 16 Blood Pressure [Le ft Arm] 151/68 H 154/70 H Blood Pressure [Ri ght Forearm] Blood Pressure [Ri ght Upper Arm] Pulse Oximetry 98 98 Documenting provider has reviewed patient's vital signs: yes Labs Labs: Laboratory Results - last 24 hr 03/11/22 03/11/22 03/11/22 14:30 16:08 16:08 WBC RBC Hgb Hct MCV MCH MCHC RDW Coeff of Shanna Plt Count Neut % (Auto) Lymph % (Auto) [place] % (Auto) Eos % (Auto) Baso % (Auto) Neut # (Auto) Lymph # (Auto) [place] # (Auto) Eos # (Auto) Baso # (Auto) Abs Immat Gran (auto) VBG pH 7.354 VBG pCO2 48 VBG pO2 52.9 H VBG HCO3 27 Sodium 129 L Potassium 3.1 L Chloride 99 Carbon Dioxide 25 BUN 20 Creatinine 0.6 Estimated Creat Clear Glucose 109 Hemoglobin A1c Venous Lactic Acid (Serial Order) Cancelled Calcium 7.9 L Magnesium Total Bilirubin 0.6 Direct Bilirubin 0.3 AST 27 ALT 12 Alkaline Phosphatase 32 L Troponin I 0.01 C-Reactive Protein 0.6 Total Protein 5.7 L Albumin 3.3 TSH Urine Color Urine Appearance Urine pH Ur Specific [place] Urine Protein Urine Glucose (UA) Urine Ketones Urine Blood Urine Nitrite Urine Bilirubin Urine Urobilinogen Ur Leukocyte Esterase Urine RBC Urine WBC Ur Squamous Epith Cells Urine Bacteria Urine Yeast Ur Drug Screen Comment Ethyl Alcohol < 0.01 L SARS-CoV-2 (PCR) POC Glucose 290 H 03/11/22 03/11/22 03/11/22 16:08 16:09 16:11 WBC 9.04 RBC 3.21 L Hgb 9.7 L Hct 29.5 L MCV 92 MCH 30 MCHC 33 RDW Coeff of Shanna 13.1 Plt Count 287 Neut % (Auto) 63.9 Lymph % (Auto) 24.2 [place] % (Auto) 8.2 Eos % (Auto) 2.1 Baso % (Auto) 0.9 Neut # (Auto) 5.78 Lymph # (Auto) 2.19 [place] # (Auto) 0.70 Eos # (Auto) 0.19 Baso # (Auto) 0.08 Abs Immat Gran (auto) 0.06 VBG pH VBG pCO2 VBG pO2 VBG HCO3 Sodium Potassium Chloride Carbon Dioxide BUN Creatinine Estimated Creat Clear Glucose Hemoglobin A1c Venous Lactic Acid (Serial Order) Calcium Magnesium Total Bilirubin Direct Bilirubin AST ALT Alkaline Phosphatase Troponin I C-Reactive Protein Total Protein Albumin TSH 0.115 L Urine Color Urine Appearance Urine pH Ur Specific [place] Urine Protein Urine Glucose (UA) Urine Ketones Urine Blood Urine Nitrite Urine Bilirubin Urine Urobilinogen Ur Leukocyte Esterase Urine RBC Urine WBC Ur Squamous Epith Cells Urine Bacteria Urine Yeast Ur Drug Screen Comment Ethyl Alcohol SARS-CoV-2 (PCR) Negative SARS-CoV-2 POC Glucose 03/11/22 03/11/22 03/11/22 16:20 17:36 18:02 WBC RBC Hgb Hct MCV MCH MCHC RDW Coeff of Shanna Plt Count Neut % (Auto) Lymph % (Auto) [place] % (Auto) Eos % (Auto) Baso % (Auto) Neut # (Auto) Lymph # (Auto) [place] # (Auto) Eos # (Auto) Baso # (Auto) Abs Immat Gran (auto) VBG pH VBG pCO2 VBG pO2 VBG HCO3 Sodium Potassium Chloride Carbon Dioxide BUN Creatinine Estimated Creat Clear Glucose Hemoglobin A1c Venous Lactic Acid (Serial Order) Calcium Magnesium Total Bilirubin Direct Bilirubin AST ALT Alkaline Phosphatase Troponin I C-Reactive Protein Total Protein Albumin TSH Urine Color Urine Appearance Urine pH Ur Specific [place] Urine Protein Urine Glucose (UA) Urine Ketones Urine Blood Urine Nitrite Urine Bilirubin Urine Urobilinogen Ur Leukocyte Esterase Urine RBC Urine WBC Ur Squamous Epith Cells Urine Bacteria Urine Yeast Ur Drug Screen Comment Ethyl Alcohol SARS-CoV-2 (PCR) POC Glucose 80 32 L* 232 H 03/11/22 03/11/22 03/11/22 19:07 19:07 21:00 WBC RBC Hgb Hct MCV MCH MCHC RDW Coeff of Shanna Plt Count Neut % (Auto) Lymph % (Auto) [place] % (Auto) Eos % (Auto) Baso % (Auto) Neut # (Auto) Lymph # (Auto) [place] # (Auto) Eos # (Auto) Baso # (Auto) Abs Immat Gran (auto) VBG pH VBG pCO2 VBG pO2 VBG HCO3 Sodium Potassium Chloride Carbon Dioxide BUN Creatinine Estimated Creat Clear Glucose Hemoglobin A1c Venous Lactic Acid (Serial Order) Calcium Magnesium Total Bilirubin Direct Bilirubin AST ALT Alkaline Phosphatase Troponin I C-Reactive Protein Total Protein Albumin TSH Urine Color Yellow Urine Appearance Clear Urine pH 7.0 Ur Specific [place] 1.025 Urine Protein Negative Urine Glucose (UA) Trace A Urine Ketones Negative Urine Blood Negative Urine Nitrite Negative Urine Bilirubin Negative Urine Urobilinogen 0.2 Ur Leukocyte Esterase Negative Urine RBC 0-2 Urine WBC 0-2 Ur Squamous Epith Cells Not Reportable Urine Bacteria Few A Urine Yeast Moderate A Ur Drug Screen Comment See Note Ethyl Alcohol SARS-CoV-2 (PCR) POC Glucose 239 H 03/12/22 03/12/22 03/12/22 06:11 06:11 06:11 WBC 7.32 RBC 3.26 L Hgb 10.0 L Hct 29.7 L MCV 91 MCH 31 MCHC 34 RDW Coeff of Shanna 12.9 Plt Count 268 Neut % (Auto) 54.2 Lymph % (Auto) 30.6 [place] % (Auto) 9.2 Eos % (Auto) 3.7 Baso % (Auto) 1.1 Neut # (Auto) 3.97 Lymph # (Auto) 2.24 [place] # (Auto) 0.70 Eos # (Auto) 0.27 Baso # (Auto) 0.08 Abs Immat Gran (auto) 0.09 VBG pH VBG pCO2 VBG pO2 VBG HCO3 Sodium 126 L Potassium 3.1 L Chloride 98 Carbon Dioxide 25 BUN 10 Creatinine 0.6 Estimated Creat Clear 69.26 Glucose 89 Hemoglobin A1c 8.67 H Venous Lactic Acid (Serial Order) Calcium 6.9 L Magnesium 1.0 L Total Bilirubin 0.4 Direct Bilirubin AST 23 ALT 11 Alkaline Phosphatase 36 L Troponin I C-Reactive Protein Total Protein 5.2 L Albumin 2.7 L TSH Urine Color Urine Appearance Urine pH Ur Specific [place] Urine Protein Urine Glucose (UA) Urine Ketones Urine Blood Urine Nitrite Urine Bilirubin Urine Urobilinogen Ur Leukocyte Esterase Urine RBC Urine WBC Ur Squamous Epith Cells Urine Bacteria Urine Yeast Ur Drug Screen Comment Ethyl Alcohol SARS-CoV-2 (PCR) POC Glucose
[2022-03-12] MEDS: 5 % DEX/0.9 SOD CHL+KCL 20 mEq 1,000 ML 50 ML IV (15:00)
[2022-03-12 15:25] LABS: Amphetamine Screen Urine Negative (Negative); Barbiturate Screen Urine Negative (Negative); Benzodiazepines Screen Urine Negative (Negative); Cannabinoid Screen Urine Negative (Negative); Cocaine Screen Urine Negative (Negative); Methadone Screen Urine Negative (Negative); Methamphetamines Screen Urine Negative (Negative); Opiate Screen Urine Negative (Negative); Oxycodone Screen Urine Negative (Negative); Phencyclidine Screen Urine Negative (Negative); Tricyclic Antidepressant Urine Negative (Negative)
[2022-03-12 15:38] VITALS: BP 124/54; PULSE 69; RESP 16; TEMP 36.4; O2SAT 98
--- NOTE | 2022-03-12 18:33 | PC.NURSE ---
Shift Summary: Patient up with one assist, walker and gait belt. Is easily distracted while ambulating, needs frequent cueing on how to appropriately use walker. Refusing medications this morning, after reapproaching for the fourth time patient agreed to taking some medications with her meals. Incontinent of urine, was continent of bowel. Tolerating regular diet, has good appetite. Vitals stable and WNL. Denies pain, nausea or SOB.
[2022-03-12 19:00] VITALS: BP 126/67; PULSE 75; RESP 18; TEMP 36.6; O2SAT 98
[2022-03-12 23:26] VITALS: BP 117/51; PULSE 65; RESP 18; TEMP 36.4; O2SAT 97
[2022-03-13] VITALS (7 sets, daily range): BP systolic 120–149; BP diastolic 71–81; PULSE 65–87; RESP 14–20; TEMP 36.6–37.2; O2SAT 96–99
--- NOTE | 2022-03-13 05:33 | PC.NURSE ---
[id number]: patient more alert this evening, cooperative with HS cares and taking medications, patient does not use call light. assist of 1 for ambulation with walker and gait belt, somewhat unsteady gait. appears to have slept well overnight.
[2022-03-13 08:16] LABS: Basophils Percent Auto 0.4 % (0.0-3.0); Eosinophils Percent Auto 1.4 % (0.0-7.0); Hematocrit 30.2 % (33.0-51.0); Hemoglobin* 9.9 gm/dL (12.0-16.0); Immature Granulocytes Abs Auto 0.06 K/uL (0.00-0.30); Mean Corpuscular HGB Conc 33 gm/dL (32-36); Mean Corpuscular Hemoglobin 31 pg (26-34); Mean Corpuscular Volume 94 fL (80-100); Monocytes Percent Auto 8.1 % (0.0-11.0); Neutrophils Percent Auto 74.6 % (42.0-72.0); Platelet Count* 265 K/uL (140-440); RDW Coefficient of Variation % 13.2 % (11.5-15.5); Red Blood Count 3.22 m/uL (4.00-5.20); White Blood Count* 11.19 K/uL (4.50-11.00)
[2022-03-13 08:24] LABS: Chloride* 111 mmol/L (96-114)
[2022-03-13 08:25] LABS: Potassium* 4.2 mmol/L (3.6-5.1); Sodium* 136 mmol/L (135-149)
[2022-03-13 08:28] LABS: Blood Urea Nitrogen* 16 mg/dL (7-30); Carbon Dioxide* 23 mmol/L (20-32); Creatinine* 0.8 mg/dL (0.5-1.5); Est. Creatinine Clearance* 51.94; Glucose* 350 mg/dL (60-115)
[2022-03-13 08:29] LABS: Calcium* 7.7 mg/dL (8.4-10.6); Magnesium* 1.3 mg/dL (1.5-2.6); Slide Review Reflex No
[2022-03-13] MEDS: THIAMINE 100 MG TABLET PO (09:27)
[2022-03-13] MEDS: carvediloL 6.25 MG TABLET 3.125 MG PO ×2 (09:28→17:52)
[2022-03-13] MEDS: predniSONE 5 MG TABLET PO (09:28)
[2022-03-13] MEDS: FERROUS SULFATE 325 MG TABLET PO (09:28)
[2022-03-13] MEDS: CLOPIDOGREL 75 MG TABLET PO (09:28)
[2022-03-13] MEDS: risperiDONE 0.5 MG TABLET PO ×2 (09:28→21:16)
[2022-03-13] MEDS: LOSARTAN POTASSIUM 50 MG TABLET PO (09:28)
--- NOTE | 2022-03-13 11:22 | PM.IMPN1 ---
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 This is not currently available. For now will manage her other medical problems and attempt to better understand her neuropsych problems. Risperidone increased to 0.5 mg b.i.d. continue to monitor cooperation with cares Status: Acute (2) Cognitive impairment: Problem details: continue to assess Status: Acute (3) Diabetes mellitus type 1.5: Problem details: type 2 diabetes with a borderline low C-peptide at the OR in February 2022 . Because her p.o. intake is very unreliable I am going to stop her Lantus and manage her with mealtime insulin only when she eats and sliding scale insulin only when her blood sugars are high for now. Continue to adjust insulin strategy to her blood sugars and oral intake. Status: Acute (4) Hypoglycemia: Problem details: this has resolved now that patient is eating regularly. . Status: Acute (5) Altered mental status: Problem details: She has had relatively normal mental status. No episodes where she is seemed unresponsive or delirious. Status: Acute (6) Malnutrition: Problem details: continue to encourage food and fluids . Much improved oral intake today. 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 Nursing staff note she has been eating fairly well. When she was admitted she was reporting being very cold which I suspected might have been due to her refusing to eat. She has now warmed up and not requiring multiple levels of blankets. She reports no shortness of breath and no chest pain. She exhibits fair recall of some very specific things like her nurses names and her medications. She asked the nurse for her desmopressin which she takes on Wednesdays and Sundays. At other time she is quite confused and unable to fully comprehend her circumstances. She told the nurse today that she was getting insulin infused through her continuous glucose monitor. Exam Narrative: Exam Narrative: She is alert and appears in no distress. Sitting up in a chair. She is wearing bifocal glasses but appears to look over her glasses and squint with her right eye closed to read and to look at me. She answers questions appropriately but inconsistently. Speech is fluent. Respirations are clear to auscultation. Cardiovascular: S1, S2, regular rate and rhythm. Abdomen: Bowel sounds active. Abdomen is soft without tenderness or mass. Extremities with trace edema. She has good capillary refill. extremities are warm today Const: Vital Signs, click to edit/add: Vital Signs - 24 hr 03/12/22 15:38 03/12/22 19:00 03/12/22 23:26 Temperature 97.6 F 98 F 97.5 F L Pulse Rate [Left A pical] 69 75 65 Pulse Rate [Left P ulse Oximeter] 75 Respiratory Rate 16 18 18 Blood Pressure [Le ft Arm] 124/54 L 126/67 117/51 L Pulse Oximetry 98 98 97 03/13/22 03:00 Temperature 98 F Pulse Rate [Left A pical] 65 Pulse Rate [Left P ulse Oximeter] Respiratory Rate 14 Blood Pressure [Le ft Arm] 140/75 H Pulse Oximetry 98 Documenting provider has reviewed patient's vital signs: yes Labs Labs: Laboratory Results - last 24 hr 03/11/22 03/13/22 03/13/22 19:07 08:05 08:05 WBC 11.19 H RBC 3.22 L Hgb 9.9 L Hct 30.2 L MCV 94 MCH 31 MCHC 33 RDW Coeff of Shanna 13.2 Plt Count 265 Neut % (Auto) 74.6 H Lymph % (Auto) 15.0 L [place] % (Auto) 8.1 Eos % (Auto) 1.4 Baso % (Auto) 0.4 Neut # (Auto) 8.30 H Lymph # (Auto) 1.70 [place] # (Auto) 0.90 Eos # (Auto) 0.20 Baso # (Auto) 0.00 Abs Immat Gran (auto) 0.06 Sodium 136 Potassium 4.2 Chloride 111 Carbon Dioxide 23 BUN 16 Creatinine 0.8 Estimated Creat Clear 51.94 Glucose 350 H Calcium 7.7 L Magnesium 1.3 L Urine Opiates Screen Negative Ur Oxycodone Screen Negative Urine Methadone Screen Negative Ur Propoxyphene Screen Negative Ur Barbiturates Screen Negative U Tricyclic Antidepress Negative Ur Phencyclidine Scrn Negative Ur Amphetamines Screen Negative U Methamphetamines Scrn Negative U Benzodiazepines Scrn Negative Urine Cocaine Screen Negative U Marijuana (THC) Screen Negative
[2022-03-13] MEDS: METFORMIN ER 500 MG PO (17:54)
--- NOTE | 2022-03-13 18:34 | PC.NURSE ---
Patient's vital signs stable. Denies pain. Up with A1, walker and gait belt. Patient has good strength with ambulation, but needs cues for walker use and is easily distracted by items in the room. Tolerating regular diet with no reports of nausea/vomiting. Incontinent of both urine and bowel today. Patient oriented to self but not always place, time or situation. Patient has her Dexcom on but the results are not accurate when compared to the hospital's glucometer. Patient needing frequent reminders of this. Patient's daughter is aware and is planning on coming to visit this evening and will bring the sample shoe inspector and reworker for the Dexcom and assess it. Patient anxious at time and uncooperative at times with taking medications. Patient refused insulin after lunch despite several attempts.
[2022-03-13] MEDS: MIRTAZAPINE 15 MG TABLET PO (21:16)
[2022-03-13] MEDS: NON-FORMULARY MEDICATION INH (21:16)
[2022-03-13] MEDS: ATORVASTATIN 10 MG TABLET 20 MG PO (21:16)
[2022-03-14] VITALS: PULSE 66; RESP 16; O2SAT 98
[2022-03-14 04:00] VITALS: BP 133/68; PULSE 83; RESP 16; O2SAT 97
--- NOTE | 2022-03-14 06:02 | PC.NURSE ---
Shift note: Pt is cooperative during this shift, follows commands, needs to be reoriented to the tasks. Rested throughout the night, is incontinent, no complains from patient or concerns noted by RN during this shift
[2022-03-14 06:49] LABS: Basophils Absolute Auto 0.07 K/uL (0.00-0.30); Basophils Percent Auto 0.7 % (0.0-3.0); Eosinophils Absolute Auto 0.24 K/uL (0.00-0.50); Eosinophils Percent Auto 2.2 % (0.0-7.0); Hematocrit 27.5 % (33.0-51.0); Immature Granulocytes Abs Auto 0.05 K/uL (0.00-0.30); Lymphocytes Percent Auto 19.1 % (20-44); Mean Corpuscular HGB Conc 33 gm/dL (32-36); Mean Corpuscular Hemoglobin 31 pg (26-34); Mean Corpuscular Volume 95 fL (80-100); Monocytes Percent Auto 7.3 % (0.0-11.0); Neutrophils Absolute Auto 7.56 K/uL (1.7-7.0); Neutrophils Percent Auto 70.2 % (42.0-72.0); Platelet Count* 244 K/uL (140-440); RDW Coefficient of Variation % 13.8 % (11.5-15.5); White Blood Count* 10.76 K/uL (4.50-11.00)
[2022-03-14 06:51] LABS: Slide Review Reflex No
[2022-03-14 08:00] VITALS: BP 139/86; PULSE 63; PULSE 74; RESP 16; TEMP 36.1; O2SAT 96
[2022-03-14 08:12] LABS: Carbon Dioxide* 23 mmol/L (20-32); Chloride* 112 mmol/L (96-114); Glucose* 171 mg/dL (60-115); Potassium* 3.7 mmol/L (3.6-5.1); Sodium* 140 mmol/L (135-149)
[2022-03-14] MEDS: predniSONE 5 MG TABLET PO (09:25)
[2022-03-14] MEDS: risperiDONE 0.5 MG TABLET PO (09:25)
[2022-03-14] MEDS: THIAMINE 100 MG TABLET PO (09:25)
[2022-03-14] MEDS: LOSARTAN POTASSIUM 50 MG TABLET PO (09:26)
[2022-03-14] MEDS: CLOPIDOGREL 75 MG TABLET PO (09:26)
[2022-03-14] MEDS: METFORMIN ER 500 MG PO (09:27)
[2022-03-14] MEDS: carvediloL 6.25 MG TABLET 3.125 MG PO (09:34)
[2022-03-14] MEDS: FERROUS SULFATE 325 MG TABLET PO (09:35)
[2022-03-14 11:31] LABS: Blood Urea Nitrogen* 18 mg/dL (7-30)
[2022-03-14 11:32] LABS: Calcium* 7.7 mg/dL (8.4-10.6); Creatinine* 0.7 mg/dL (0.5-1.5); Est. Creatinine Clearance* 59.37; Estimated Glomerular Filt Rate 98.95; Magnesium* 1.9 mg/dL (1.5-2.6)
--- NOTE | 2022-03-14 11:42 | P.DS_ITS ---
DS: Providers Provider Time Seen by Provider: 11:41 Date Seen: 03/14/22 Date of admission: 03/11/22 21:54 Primary care physician: Not a Local Provider Admitting Clinician: Justin Martinez MD Consults: 03/11/22 21:25 Consult to Nutrition [CONS] Routine Comment: Reason for consult:: Weight Loss Consult to Physical Therapy [CONS] Routine Comment: Reason(s) for PT Consult:: Evaluate and Treat Any Restrictions?:: No Restrictions 03/11/22 21:30 Consult to Occupational Therapy [CONS] Routine Comment: Reason(s) for OT Consult:: Evaluate and Treat Any Restrictions?:: No Restrictions Consult to Senior Oracle Database Developer [CONS] Routine Comment: Reason for Consult:: Discharge Planning Needs 03/11/22 23:21 Consult to Occupational Therapy [CONS] Routine Comment: Reason(s) for OT Consult:: Difficulty Managing ADLs Any Restrictions?:: Wt Bearing as Tolerated Consult to Physical Therapy [CONS] Routine Comment: Reason(s) for PT Consult:: Weakness Any Restrictions?:: Wt Bearing as Tolerated Attending Physician on discharge: Justin Martinez MD Date of Discharge: 03/14/22 DS: Diagnosis Discharge Diagnosis (1) Malnutrition: Status: Acute Problem details: Appears primarily due to food refusal. Recommend outpatient mental health evaluation for behavioral management. 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 Consider recheck of electrolytes including magnesium, potassium and sodium at outpatient followup. 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 no evidence of threat to self or others so inpatient hospitalization not needed at this time. Behavioral disturbances are clearly challenging to the patient and her caregivers with her complicated past medical history and complex medication management. it is especially difficult to manage her diabetes when she refuses to eat and refuses insulin. (4) Cognitive impairment: Status: Acute Problem details: difficult to assess due to poor cooperation (5) Diabetes mellitus type 1.5: Status: Acute Problem details: type 2 diabetes with a borderline low C-peptide at the [facility] in February 2022 . Because her p.o. intake is very unreliable I am going to stop her Lantus and manage her with mealtime insulin only when she eats and sliding scale insulin only when her blood sugars are high for now. Continue to adjust insulin strategy to her blood sugars and oral intake. outpatient followup of this strat egy will be needed. (6) Hypoglycemia: Status: Acute Problem details: this has resolved now that patient is eating more regularly. . (7) Altered mental status: Status: Acute Problem details: She has had relatively normal mental status. No episodes where she is seemed unresponsive or delirious. DS: Summary Hospital Course Hospital Course: 61-year-old female admitted to the hospital for managing blood sugars. It was apparent early on that her blood sugar management was primarily a behavioral problem with patient refusing to have blood sugar checks, insulin, eating regular meals. This has improved during her hospital stay but continues to be a concern at the time of discharge. Decision was made to manage her with short- acting insulin so that she does not get in a position where she gets long-acting insulin and then refuses to eat for a day and gets hypoglycemic. Patient had therapy evaluation here and had some troubles with cooperation with that. Occasionally had troubles with cooperation with nursing cares and meals here as well. Status at Discharge Overall status at discharge: patient is back to baseline Time Spent with Patient Time attestation: Total time spent providing and/or coordinating discharge services: 40 minutes Exam Narrative: Exam Narrative: she is sitting up in the chair. She is pleasant and cooperative. She does give limited responses to questions. She is in no distress. Breathing is unlabored. Const: Vital Signs, click to edit/add: Vital Signs - 24 hr 03/13/22 12:00 03/13/22 15:15 03/13/22 16:00 Temperature 98.9 F 98.1 F Pulse Rate [Left A pical] 87 84 84 Pulse Rate [Left P ulse Oximeter] Respiratory Rate 18 18 18 Blood Pressure [Le ft Arm] 130/81 120/71 Pulse Oximetry 96 96 03/13/22 20:25 03/14/22 00:00 03/14/22 04:00 Temperature 98 F Pulse Rate [Left A pical] Pulse Rate [Left P ulse Oximeter] 75 66 83 Respiratory Rate 20 16 16 Blood Pressure [Le ft Arm] 149/73 H 133/68 Pulse Oximetry 99 98 97 Documenting provider has reviewed patient's vital signs: yes DS: Data Data Completed and Pending Labs on day of discharge: Labs from last 24 hours 03/14/22 03/14/22 06:12 06:12 WBC 10.76 RBC 2.90 L Hgb 9.0 L Hct 27.5 L MCV 95 MCH 31 MCHC 33 RDW Coeff of Shanna 13.8 Plt Count 244 Neut % (Auto) 70.2 Lymph % (Auto) 19.1 L [place] % (Auto) 7.3 Eos % (Auto) 2.2 Baso % (Auto) 0.7 Neut # (Auto) 7.56 H Lymph # (Auto) 2.10 [place] # (Auto) 0.80 Eos # (Auto) 0.24 Baso # (Auto) 0.07 Abs Immat Gran (auto) 0.05 Sodium 140 Potassium 3.7 Chloride 112 Carbon Dioxide 23 BUN 18 Creatinine 0.7 Estimated Creat Clear 59.37 Glucose 171 H Calcium 7.7 L Magnesium 1.9 Preliminary micro results at discharge 03/11/22 16:08 Blood Culture - Preliminary Blood NO GROWTH AFTER 48 HOURS 03/11/22 15:56 Blood Culture - Preliminary Blood NO GROWTH AFTER 48 HOURS Discharge Plan Discharge Disposition: Home w/ Parent or Adult Date of Admission: 03/11/22 21:54 Attending Provider on Discharge: Justin Martinez Primary Care Provider: Provider,Not a Local Condition: Stable Anticipated Discharge Date/Time: 03/14/22 12:30 Discharge Medications: New insulin aspart U-100 [Novolog Flexpen U-100 Insulin] 100 unit/mL (3 mL) Insulin Pen 6 unit subcut TIDWM Qty: 10 0RF insulin aspart U-100 [Novolog Flexpen U-100 Insulin] 100 unit/mL (3 mL) Insulin Pen 0 unit subcut ACHS Qty: 10 0RF Continued carboxymethylcellulose sodium [Lubricant Dry Eye Relief] 1 % drops, liquid gel 2 drp ophthalmic (eye) QID PRN0RF Label Comments: BOTH EYES atorvastatin 20 mg tablet 20 mg PO DAILY 0RF bisacodyl [Dulcolax (bisacodyl)] 5 mg tablet,delayed release (DR/EC) 10 mg PO DAILY PRN0RF Label Comments: FOR CONSTIPATION carvedilol 3.125 mg tablet 3.125 mg PO BID 0RF Rx Instructions: must administer with a meal/food cholecalciferol (vitamin D3) 125 mcg (5,000 unit) tablet 5,000 unit PO DAILY 0RF clopidogrel [Plavix] 75 mg tablet 75 mg PO DAILY 0RF desmopressin 10 mcg/spray (0.1 mL) spray,non-aerosol See Rx Instructions intranasal .TWICE WEEKLY 0RF Rx Instructions: 1 SPRAY IN ONE NOSTRIL TWICE WEEKLY ON MONDAY AND MONDAY ferrous sulfate 325 mg (65 mg iron) tablet 325 mg PO DAILY 0RF omega-3 fatty acids-vitamin E 1,000 mg capsule 1 cap PO DAILY 0RF levothyroxine 75 mcg tablet 75 mcg PO DAILY 0RF Label Comments: TAKE ONE TABLET BY MOUTH DAILY losartan 25 mg tablet 25 mg PO DAILY 0RF metformin 500 mg tablet extended release 24 hr 1,000 mg PO DAILY 0RF mirtazapine 30 mg tablet 30 mg PO HS 0RF polyethylene glycol 3350 [Miralax] 17 gram/dose powder 17 g PO DAILY 0RF prednisone 5 mg tablet 5 mg PO DAILY 0RF Label Comments: TAKE ONE TABLET BY MOUTH DAILY sennosides [senna] 8.6 mg tablet 17.2 mg PO DAILY PRN0RF Lactobacillus acidophilus Tablet 100 mmu cells PO DAILY 0RF cranberry 500 mg capsule 500 mg PO DAILY 0RF Rx Instructions: administer with a meal PreserVision AREDS-2 250-90-40-1 mg tablet,chewable 1 tab PO DAILY 0RF calcium carbonate [Oyster Shell Calcium] 500 mg calcium (1,250 mg) tablet 500 mg PO DAILY 0RF acetaminophen 325 mg tablet 325 - 650 mg PO QID PRN0RF Changed risperidone 0.25 mg tablet 0.25 mg PO BID Qty: 60 0RF Discontinued insulin glargine 100 unit/mL (3 mL) insulin pen 8 unit subcut QAM 0RF Discharge Orders: Discharge Order (Routine); Ordered 03/14/22 Ordered By: Justin Martinez Patient Education: Insulin Aspart, Recombinant (By injection) (NovoLOG, NovoLOG FlexPen) Activity Restrictions/Additional Instructions: To manage unpredictable eating I recommend we switch to short-acting insulin only. I recommend the following plan: Check blood sugar before each meal. Give insulin after the meal is done. Give insulin 6 units for a full meal, 4 units for 2/3 of a meal and 2 units for 1/3 of a meal. if the blood sugar is high before the meal she will need extra insulin , sliding-scale, after the meal as noted on written instructions. This strategy for managing her diabetes is not perfect but it should minimize very low and very high blood sugars. This should be reviewed with the primary care doctor as soon as possible. Arrange a primary care appointment as soon as possible. She also needs appointment with a psychiatrist. This will likely take some time to arrange. Activity Level: Up with assist and Use Walker Discharge Diet: Diabetic Diet Detail: it is more important that she eat some food than that it be any particular kind of food. Follow Up Appointments: Monik Pike MD [Staff Physician] - 03/23/22 1:30 pm Provider,Not a Local [Primary Care Provider] - Forms: [employer] T[employer] Info Instructions
--- NOTE | 2022-03-14 13:15 | PC.SOCIAL ---
Pt. moved with in the last few months from [place] to live with her daughter Mikala here in [place] at [phone]. Pt. had a stroke and her daughter in the caregiver. Spoke with pt.'s daughter Mikala who had numerous questions regarding resources and services. [facility] Mikala has learned since she is not certified disabled as a services are limited. Pt. is receiving home care through [facility] currently for PT/OT/ST. Pt. has had her MA switched from [place] to [place]. Mikala wants homemaker services, home health aide, over the counter medications, cameras and railings installed in her home, a basket and skis for her walker, and glycerna (like ensure) ordered and to be coverage by insurance for pt. She also inquired about a neuro psych work-up and/or short-term rehab for pt. Per therapy and the physician pt. would not benefit from a rehab stay. Pt. walked with a SBA to the bathroom and went on the toilet with therapy. Per daughter pt. is always incontinent for her and her ambulation fluctuates. Appears to be more cognitive and behavioral that functional per physician and therapies. Discussed memory care options and a list was given. Mikala wants to continue to care for pt. at her home. Discussed establishing care with a primary in [facility] since pt. does not have a local provider and the getting an order for a neuro-psych evaluation. A referral was made to the [facility] line for home modification assistance, medications assistance and caregiver support. Mikala also asked for a release to send pt[facility] to [facility] from [facility] stay for pt. A list of the over the counter medications and walker devices was given to the physician to write scripts for them to see if pt. has coverage for any of them from the [facility]. Also requested a home health aide through [facility] for pt.
--- NOTE | 2022-03-14 13:47 | NUTR.NU ---
RDN with MD nutrition consult for weight loss. Patient admitted with altered mental status and confusion. RDN called and left voicemail x2 to patient's designated caregiver, Mikala. RDN has not received a call back from designated caregiver.. RDN unable to assess weight loss/status. No nutrition interventions at this time.
--- NOTE | 2022-03-14 15:23 | NUTR.NU ---
JANNETH visited with patient and designated caregiver, Mikala, during discharge. Mikala reports patient would eat 2 meals daily before admit. Mikala is interested in starting Glucerna for patient at home to encourage oral intake and maintain weight. MERARIN encouraged Glucerna, which can be flavored with sugar free chocolate syrup, hot chocolate mix, etc. if desired. MERARIN provided nutrition education and handout using the plate method (1/4 plate lean protein, 1/4 plate starch/grain, 1/2 plate nonstarchy vegetables, 1 portion fruit and dairy). JANNETH also provided Mikala information on Medical Nurition therapy and seeing JANNETH as an outpatient for Diabetes Mellitus diet education. Mikala had no further questions at this time.
--- NOTE | 2022-03-14 16:06 | PC.NURSE ---
shift note: pt up 1/walker. pt continent of bowel & bladder. Pt refused a.m blood sugars and was hitting out at staff statingthey already took it! Reattempted @ 1030 and pt ate full breakfast. Pt received insulin per d.o for 181 BS. IV dc'd intact from Rt Wrist. Pt had blood sugar @ 1400 of 213 and was medicated after meal with d.o insulin dose. Pt has bruising to bilat u/e and blood sugar monitor intact on rt upper arm. LS clr. vss stable. pt afeb. Pt's daughter present for dc and public relations writer reviewed dc instructions. copies of dc sent with pt. social svc and OT visited with daughter and answered questions. Belongings reviewed and sent with pt at dc.
[2022-03-15 08:42] LABS: Lactate Sepsis 1.1
== END 2022-03-14 15:46 | disposition home or self-care (01) ==
LOC: ED 20:17 → MEDSURG 21:55
PROVIDERS: Admitting Provider Family Medicine; Emergency Provider Family Medicine; Visit Provider Family Medicine
DX: F59 Unspecified behavioral syndromes associated with physiological disturbances and physical factors (principal); R41.89 Other symptoms and signs involving cognitive functions and awareness; R41.82 Altered mental status, unspecified; D49.6 Neoplasm of unspecified behavior of brain; E46 Unspecified protein-calorie malnutrition; E23.0 Hypopituitarism; E16.2 Hypoglycemia, unspecified; Z86.73 Personal history of transient ischemic attack (TIA), and cerebral infarction without residual deficits; I10 Essential (primary) hypertension; E13.8 Other specified diabetes mellitus with unspecified complications; G93.40 Encephalopathy, unspecified; Z79.84 Long term (current) use of oral hypoglycemic drugs; Z79.4 Long term (current) use of insulin
CPT/HCPCS: 36415; 70450; 71045; 80048; 80053; 80076; 80306; 81001; 82077; 82803; 82947; 83036; 83735; 84443; 84484; 85025; 86140; 87040; 87086; 87635; 93005; 96361; 96372; 96374; 97110; 97112; 97116; 97161; 97166; 97530; 97535; 99284; 99285; A9270; G0378; G0379; J3475; J7030; J7042; J7120; J7512

== ENCOUNTER 2022-03-17 13:43 | Outpatient (CLI) | payer OTHER, SELFPAY ==
--- OUTSIDE RECORDS SUMMARY | 2022-04-12 18:55 | XMS_ITS | Encounter Summary ---
:1960 Author Organization [facility] Address [address] [place] [address] Care Team Providers Name Role Phone Unavailable Primary Care Provider Unavailable Encounter Details Date Type Department Care Team Description 12/17/2021 Abstract [facility] CARLITA Bustillos ea Provider, Historical, [facility] CARLITA SÁNCHEZ [phone] [place] [id number] [address] Social History Tobacco Use Types Packs/Day Years Used Date Smoking Tobacco: Never Smokeless Tobacco: Never Sex Assigned at Date Recorded Not on file documented as of this encounter Plan of Treatment Upcoming Encounters Date Type Specialty Care Team Description 05/10/2022 Comprehensive Visit Gynecology Alhaji Fabian ra, M.D. [address] [place], [place] [phone] (Wo rk) documented as of this encounter Visit Diagnoses Not on filedocumented in this encounter
--- OUTSIDE RECORDS SUMMARY | 2022-04-12 18:55 | XMS_ITS | Encounter Summary ---
:1960 Author Organization [facility] Address [address] [place] [address] Care Team Providers Name Role Phone Unavailable Primary Care Provider Unavailable Reason for Referral Outpatient (Routine) - Authorized Specialty Diagnoses / Procedures Referred By Contact Refer red To Contact Diagnoses Ted Uterus Harpreet Newberry M.D. [facility] Region Procedures US Pelvis Transvaginal and Transabdominal [facility] [place] [address] Referral ID Status Reason Start Date Expiration Date Visits V isits Requested Authorized [id number] Authorized 12/14/2021 12/14/2022 1 1 Reason for Visit Reason Comments Vaginitis/Bacterial Vaginosis Recent vaginal infection , finished antibiotics on 12/02, transferring care from [facility] Appointment Request (Routine) - Closed Specialty Diagnoses / Procedures Referred By Contact Refer red To Contact Obstetrics and Gynecology Referral ID Status Reason Start Date Expiration Date Visits Requ ested Visits Authorized [id number] Closed 12/09/2021 12/09/2022 1 1 Encounter Details Date Type Department Care Team Description 12/14/2021 Comprehensive Visit Department of Harpreet Newberry Mass U terus (Primary Obstetrics and MJoseph Dx) Gynecology in [address] [facility] [address] [place], [place] [phone] (Work) [phone] Social History Tobacco Use Types Packs/Day Years Used Date Smoking Tobacco: Never Smokeless Tobacco: Never Sex Assigned at Date Recorded Not on file documented as of this encounter Last Filed Vital Signs Vital Sign Reading Time Taken Comments Blood Pressure 127/74 12/14/2021 2:11 PM CDT Pulse 64 12/14/2021 2:11 PM CDT Temperature - - Respiratory Rate - - Oxygen Saturation - - Inhaled Oxygen Concentration - - Weight - - Height - - Body Mass Index - - documented in this encounter Progress Notes Harpreet Newberry M.D. - 12/14/2021 2:00 PM CDT SUBJECTIVE CHIEF COMPLAINT / REASON FOR VISIT Chief Complaint Patient presents with ??? Vaginitis/Bacterial Vaginosis Recent vaginal infection, finished antibiotics on 12/02, transferring care from [place] HISTORY OF PRESENT CONDITION Oneyda Guerrero is a 61 y.o. 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 She is brought by her daughter and patient patient history as related by her daughter. Patient was hospitalized twice in [place].Mother brings her here because she was not happy with the care she received in [place]. The records shows that the patient was admitted with pelvic abscess This was drained by Interventional Radiology. She subsequently had a endometrial biopsy which is positive for enterococci faecalis and an E coli and Klebsiella pneumoniae and yeast. She was treated with Diflucan and levofloxacin. She denies fever, chills, nausea, vomiting. No abnormal vaginal itching, odor or discharge. No dysuria, urgency or frequency. No abnormal vaginal spotting, bleeding or uterine cramping. Social History Socioeconomic History ??? Marital status: Tobacco Use ??? Smoking status: Never Smoker ??? Smokeless tobacco: Never Used Vaping Use ??? Vaping Use: never used Allergies Allergen Reactions ??? Ibuprofen GI intolerance, Nausea And Vomiting and Swelling ??? Aspirin Nausea Only and GI intolerance ??? Beta Carotene GI intolerance ??? Desmopressin Nausea Only ??? Salicylates Nausea And Vomiting Medications the Patient Reported Taking atorvastatin (LIPITOR) 20 mg tablet (Taking) bisacodyL (DULCOLAX) 5 mg EC tablet (Taking) carvediloL (COREG) 6.25 mg tablet (Taking) cholecalciferol, vitamin D3, 25 mcg (1,000 Unit) tablet (Taking) clopidogreL (PLAVIX) 75 mg tablet (Taking) desmopressin (DDAVP) 10 mcg/spray (0.1 mL) nasal spray (Taking) ferrous sulfate 325 mg (65 mg iron) tablet (Taking) glucagon (GlucaGen) 1 mg/mL injection (Taking) insulin aspart U-100 (NovoLOG FlexPen) 100 unit/mL (3 mL) injection (Taking) insulin glargine (Lantus Solostar U-100 Insulin) 100 unit/mL (3 mL) injection (Taking) levothyroxine (SYNTHROID, LEVOTHROID) 75 mcg tablet (Taking) losartan (COZAAR) 25 mg tablet (Taking) mirtazapine (REMERON) 15 mg tablet (Taking) omega 8-qsp-bxn-fish oil 1,000 mg (120 mg-180 mg) capsule (Taking) polyethylene glycol (MIRALAX) 17 gram/dose oral powder (Taking) predniSONE (DELTASONE) 5 mg tablet (Taking) thiamine (VITAMIN B1) 100 mg tablet (Taking) OBJECTIVE VITAL SIGNS Vitals: 12/14/21 1411 BP: 127/74 Pulse: 64 HT: -WT: -There is no height or weight on file to calculate BMI. PHYSICAL EXAM Vital Signs: reviewed in electronic medical record. General Appearance: reveals a well-nourished, well-developed female who is in no acute distress. Mental Status: her mood and affect appear normal. ASSESSMENT / PLAN 1. Pelvic abscess-status post drainage in [place]. Will obtain pelvic ultrasound to evaluate if complete resolution. 2. Endometrial biopsy showing infection. Status post antibiotic treatment. Will follow-up with ultrasound. Discussed with patient's daughter she would like to avoid endometrial biopsy if possible. 3. Obtain complete records and have patient follow-up. 4. Primary care issues to follow up with her primary care provider. New Medications Ordered This Visit Medications ??? carvediloL (COREG) 6.25 mg tablet Sig: Take 1 tablet by mouth daily. ??? cholecalciferol, vitamin D3, 25 mcg (1,000 Unit) tablet Sig: TAKE FIVE TABLETS (125 MCG) BY MOUTH EVERY DAY (VITAMIN D) ??? clopidogreL (PLAVIX) 75 mg tablet Sig: TAKE ONE TABLET BY MOUTH EVERY DAY INDEFINITELY TO PREVENT BLOOD CLOTS AND STROKE. ??? desmopressin (DDAVP) 10 mcg/spray (0.1 mL) nasal spray Si spray in each nostril every other day ??? ferrous sulfate 325 mg (65 mg iron) tablet Si mg. ??? omega 5-try-fxy-fish oil 1,000 mg (120 mg-180 mg) capsule Si,000 mg. ??? insulin aspart U-100 (NovoLOG FlexPen) 100 unit/mL (3 mL) injection Sig: INJECT 3 UNITS SUBCUTANEOUSLY THREE TIMES A DAY FOR DIABETES (REFRIGERATE UNUSED PENS. PEN GOOD FOR 28 DAYS ONCE USED. DO NOT REFRIGERATE PENS IN USE.) ??? insulin glargine (Lantus Solostar U-100 Insulin) 100 unit/mL (3 mL) injection Sig: INJECT 5 UNITS UNDER THE SKIN EVERY DAY FOR DIABETES -DISCARD PEN 28 DAYS AFTER INITIAL USE ??? levothyroxine (SYNTHROID, LEVOTHROID) 75 mcg tablet Si mcg every morning before breakfast. Except on Sundays ??? losartan (COZAAR) 25 mg tablet Sig: Take 1 tablet by mouth daily. ??? mirtazapine (REMERON) 15 mg tablet ??? polyethylene glycol (MIRALAX) 17 gram/dose oral powder Sig: TAKE 17 GRAMS BY MOUTH EVERY DAY NEEDED FOR CONSTIPATION *MIX IN 4 TO 8 OUNCES OF LIQUID ASDIRECTED*USE COVER TO MEASURE POWDER* ??? predniSONE (DELTASONE) 5 mg tablet ??? atorvastatin (LIPITOR) 20 mg tablet Sig: Take 1 tablet by mouth. ??? thiamine (VITAMIN B1) 100 mg tablet Sig: Take 1 tablet by mouth daily. ??? bisacodyL (DULCOLAX) 5 mg EC tablet Sig: TAKE TWO TABLETS BY MOUTH EVERY DAY NEEDED FOR CONSTIPATION ??? glucagon (GlucaGen) 1 mg/mL injection Sig: INJECT 1MG INTRAMUSCULAR NEEDED FOR LOW BLOOD SUGAR; MAY REPEAT IN 15 MINUTES IF NEEDED There are no discontinued medications. Harpreet Newberry M.D. documented in this encounter Plan of Treatment Upcoming Encounters Date Type Specialty Care Team Description 05/10/2022 Comprehensive Visit Gynecology Alhaji Fabian ra, M.D. [address] [place], [place] [phone] (Wo rk) Scheduled Orders Name Type Priority Associated Order Schedule Diagnoses US Pelvis Transvaginal Imaging RAD - Routine (most Mass Uterus Expected: and Transabdominal inpatients and all 08/2022 outpatients) (Approximate), Expires: 03/15/2023 documented as of this encounter Visit Diagnoses Diagnosis Mass Uterus - Primary documented in this encounter
--- OUTSIDE RECORDS SUMMARY | 2022-04-12 18:55 | XMS_ITS | Encounter Summary ---
:1960 Author Organization [facility] Address [address] [place] [address] Care Team Providers Name Role Phone Unavailable Primary Care Provider Unavailable Encounter Details Date Type Department Care Team Description 06/08/1998 - 06/09/1998 Hospital Encounter HX RST AYSE 2G Social History Tobacco Use Types Packs/Day Years Used Date Smoking Tobacco: Never Assessed Sex Assigned at Date Recorded Not on file documented as of this encounter Plan of Treatment Upcoming Encounters Date Type Specialty Care Team Description 05/10/2022 Comprehensive Visit Gynecology Alhaji Fabian ra, M.D. [address] [place], [place] [phone] (Wo rk) documented as of this encounter Procedures Procedure Name Priority Date/Time Associated Diagnosis Comme nts CT ORBITS AND SELLA Routine 06/08/1998 6:37 PM Re sults for this WITHOUT IV CONTRAST CDT procedur e are in the results section. NM BRAIN SPECT Routine 06/08/1998 5:01 PM Results for this NEUROLITE CDT procedure are i n the results section. IR CEREBRAL ARTERY Routine 06/08/1998 1:27 PM Res ults for this TEMPORARY BALLOON CDT procedure are in OCCLUSION the results section. CT ORBITS AND SELLA Routine 06/08/1998 12:49 PM R esults for this WITHOUT IV CONTRAST CDT procedur e are in the results section. documented in this encounter Results CT Orbits and Sella without IV Contrast (06/08/1998 6:37 PM CDT) Anatomical Region Laterality Modality Head N/A Computed Tomography Specimen (Source) Anatomical Collection Method Collection Time Re ceived Time Location / / Volume Laterality 06/08/1998 6:37 PM CDT Narrative 06/09/1998 11:20 AM CDT 08-Jun-1998 18:37:00 ??Exam: CT PF/Sella/Orbit wo Indications: Post angio; cystic lesion s elidia REVISED REPORT - 09-Jun-1998 11:20:00 REVISED REPORT 06/09/98 10:55:23 ([id number]) Head CT without contrast show s that since our examination done earlier today, there has been clearing of the contrast material from the large clival, sellar, and suprasellar region mass. No e vidence for hemorrhage. Flecks of calcif ication within the tumor. Differential diagnosis includes craniopharyngioma, chordoma, chondrosarcoma. ??I-117.300; D-106.300 Electronically signed by: ?? Stan Peck MD. ??[id number] 09-Jun-1998 1 1:20 Procedure Note Kranthi Peck M.D. - 12/11/2017Format ting of this note might be different from the original. 08-Jun-1998 18:37:00 Exam: CT PF/Sella/O rbit wo Indications: Post angio; cystic lesion s elidia REVISED REPORT - 09-Jun-1998 11:20:00 REVISED REPORT 06/09/98 10:55:23 ([id number]) Head CT without contrast show s that since our examination done earlier today, there has been clearing of the contrast material from the large clival, sellar, and suprasellar region mass. No evidence for hemorrhage. Flecks of calcification with in the tumor. Differential diagnosis includes craniopharyngioma, chordoma, chondrosarcoma. I-117.300; D-106.300 Electronically signed by: Stan Peck MD. [id number] 09-Jun-1998 11: [address] PROCEDURES NM Brain SPECT NEUROLITE (06/08/1998 5:01 PM CDT) Anatomical Region Laterality Modality Brain N/A Nuclear Medicine Specimen (Source) Anatomical Collection Method Collection Time Re ceived Time Location / / Volume Laterality 06/08/1998 5:01 PM CDT Narrative 06/08/1998 5:29 PM CDT 08-Jun-1998 17:01:00 ??Exam: NM Brain Scn Neurolite SPECT Indications: balloon occlusion ORIGINAL REPORT - 08-Jun-1998 17:29:00 BRAIN SCAN: ??Perfusion images performed during left internal carotid artery occlusion. ??There is decreased perfusion within the left cerebral hemisphere. ?? The global perfusion deficit is between 5% to 20% and appears to be greater in the posterior circulation on the quantification diagrams. ??However, visually, the left anterior cerebral artery and to a lesser degree the left MCA territory is rela tively under perfused compared to the ri ght side. ??IMP: Findings consistent with incomplete compensatory flow to the left hemisphere after balloon occlusion, which affects the left YANG and MCA, and to a lesser degree left HEAVY LINE TECHNICIAN vascular distribution. 99mTc Neurolite 21.0mCi Electronically signed by: ?? Natasha Tejeda ?? 08-Jun-1998 17:29 Procedure Note Angel Tejeda M.D. - 12/11/2017For matting of this note might be different from the original. 08-Jun-1998 17:01:00 Exam: MS Brain Scn Neurolite SPECT Indications: balloon occlusion ORIGINAL REPORT - 08-Jun-1998 17:29:00 BRAIN SCAN: Perfusion images performed d uring left internal carotid artery occlusion. There is decreased perfusion within the left cerebral hemisphere. The global perfusion deficit is between 5% to 20% and appears to be greater in the posterior c irculation on the quantification diagrams. However, visually, the left anterior cerebral artery and to a lesser degree the left MCA territory is relatively under perfused compared to the right side. IMP: Findings consist ent with incomplete compensatory flow to the left hemisphere after balloon occlusion, which affects the left YANG and MCA, and to a lesser degree left HEAVY LINE TECHNICIAN vascular distribution. 99mTc Neurolite 21.0mCi Electronically signed by: Natasha Tejeda MD 08-Jun-1998 17:29 Mega Hall M.D. [facility] PROCEDURES IR Cerebral Artery Temporary Balloon Occlusion (06/08/1998 1:27 PM CDT) Anatomical Region Laterality Modality Head N/A X-Ray Angiography Specimen (Source) Anatomical Collection Method Collection Time Re ceived Time Location / / Volume Laterality 06/08/1998 1:27 PM CDT Narrative 06/08/1998 3:08 PM CDT 08-Jun-1998 13:27:00 ??Exam: NRAD Temp. Balloon Occlu. Indications: I&D: Sellar/suprastellar cy stic-clivus lesion/SPECT ORIGINAL REPORT - 08-Jun-1998 15:08:00 Bilateral cartoid and left vertebral ang iogram with trial balloon occlusion of the cervical left internal carotid artery. Irregularity without associated stenosis of the proximal cavernous ICAs bilatera lly consistent with tumor encasement. Agustin th meningohypophyseal arteries are enlarged but the known dorsum sellae and superclinoid tumor is angiographically avascular. ?? The cervical left internal carotid arter y was temporarily occluded with a balloon occlusion catheter. The patient initially tolerated balloon occlusion of the cervical left ICA. Pre and post balloon occ lusion xenon cerebral blood flow studies were obtained and the values were 31 and 15ml/100grams/minute respectively. ??DSA series of the right carotid and left vertebral arteries obtained during cervica l left ICA occlusion demonstrated only m arginal angiographic collateral to the left carotid intracranial circulation via the anterior communicating artery and a small left posterior communicating artery . The left posterior communicating arter y is irregular and is also probably encased by tumor. The right posterior cerebral artery does not opacify well on either the right carotid or left vertebral inje ction consistent with compression/stenos is of the right P-1 segment. Approximately 10 minutes after initiatio n of the trial balloon occlusion of the cervical left ICA, the patient acutely complained of left upper chest pain and left face pain, particularly severe in the left periorbital region. In addition, sh e had the new onset of left ptosis. The balloon was deflated and the heparinization was immediately reversed with intravenous protamine and the catheter was remov ed. The patient was taken to CT which de monstrated no evidence ??of subarachnoid hemorrhage but was worrisome for intratumoral hemorrhage. The patient's face pain and left eye ptosis signficantly improv ed over the next one half hour. The agapito ent was taken back to angiography and DSA series of the left carotid and left subclavian arteries demonstrated no evidence of left carotid or left vertebral disse ction. Dr. Hall was informed of the angiographic events. (See technique note). I-113.999; D-105.327; 165.xxxR; 165.xxxL ?(ISO 300, 123 cc - decreased motion, temporary balloon) Electronically signed by: ?? Natasha Graham MD. ??[id number] 08-Jun-1998 1 5:08 Procedure Note Angel Graham M.D. - 12/11/2017For matting of this note might be different from the original. 08-Jun-1998 13:27:00 Exam: NRAD Temp. Ba lloon Occlu. Indications: I&D: Sellar/suprastellar cy stic-clivus lesion/SPECT ORIGINAL REPORT - 08-Jun-1998 15:08:00 Bilateral cartoid and left vertebral ang iogram with trial balloon occlusion of the cervical left internal carotid artery. Irregularity without associated stenosis of the proximal cavernous ICAs bilaterally consistent with tumor encasement. Both m eningohypophyseal arteries are enlarged but the known dorsum sellae and superclinoid tumor is angiographically avascular. The cervical left internal carotid arter y was temporarily occluded with a balloon occlusion catheter. The patient initially tolerated balloon occlusion of the cervical left ICA. Pre and post balloon occlusion xenon cerebral blood flow studies were obtaine d and the values were 31 and 15ml/100grams/minute respectively. DSA series of the right carotid and left vertebral arteries obtained during cervical left ICA occlusion demonstrated only marginal angiographic collateral to the left carotid intracranial circulation via the anterior communicating artery and a small left posterior communicating artery. The left posterior communicating artery is irregular and is also probably encased by tumor. The right posterior cerebral artery does not opacify well on either the right carotid or left vertebral injection consistent with compression/stenosis of the right P-1 segment. Approximately 10 minutes after initiatio n of the trial balloon occlusion of the cervical left ICA, the patient acutely complained of left upper chest pain and left face pain, particularly severe in the left periorbital region. In addition, she had the new ons et of left ptosis. The balloon was deflated and the heparinization was immediately reversed with intravenous protamine and the catheter was removed. The patient was taken to CT which demonstrated no evidence of subarachnoid hemorrhage but was worrisome for intratumoral hemorrhage. The patient's face pain and left eye ptosis signficantly improved over the next one half hour. The patient was taken back to angiography and DSA series of th e left carotid and left subclavian arteries demonstrated no evidence of left carotid or left vertebral dissection. Dr. Hall was informed of the angiographic events. (See technique note). I-113.999; D-105.327; 1 65.xxxR; 165.xxxL (ISO 300, 123 cc - decreased motion, temporary balloon) Electronically signed by: Natasha Graham MD. [id number] 08-Jun-1998 15: 08 Mega Hall M.D. IMG IR PROCEDURES CT Orbits and Sella without IV Contrast (06/08/1998 12:49 PM CDT) Anatomical Region Laterality Modality Head N/A Computed Tomography Specimen (Source) Anatomical Collection Method Collection Time Re ceived Time Location / / Volume Laterality 06/08/1998 12:49 PM CDT Narrative 06/08/1998 1:56 PM CDT 08-Jun-1998 12:49:00 ??Exam: CT PF/Sella/Orbit wo Indications: left face pain ORIGINAL REPORT - 08-Jun-1998 13:56:00 ([id number]) ??Head CT with contrast perfo rmed after angiography demonstrates the known mass involving the dorsum sella with extension into the suprasellar and interpeduncular and prepontine cisterns, lef t greater than right. The tumor is more hyperdense compared to the outside head CT with contrast dated 05-25-98, which raises the possibility of hemorrhage into the tumor. A follow-up CT is recommended t o differentiate between contrast enhance ment vs intratumoral hemorrhage. The overall size of the tumor has not changed over the interim. I-11.351; D-116.327 Electronically signed by: ?? Natasha Graham MD. ??[id number]-Jun-1998 1 3:56 Procedure Note Angel Graham M.D. - 12/11/2017For matting of this note might be different from the original. 08-Jun-1998 12:49:00 Exam: CT PF/Sella/O rbit wo Indications: left face pain ORIGINAL REPORT - 08-Jun-1998 13:56:00 ([id number]) Head CT with contrast perform ed after angiography demonstrates the known mass involving the dorsum sella with extension into the suprasellar and interpeduncular and prepontine cisterns, left greater than right. The tumor is more hyperdense comp ared to the outside head CT with contrast dated 05-25-98, which raises the possibility of hemorrhage into the tumor. A follow-up CT is recommended to differentiate between contrast enhancement vs intratumoral hemorrhage. The overall size of the tumor has not changed over the interim. I-11.351; D-116.327 Electronically signed by: Natasha Graham MD. [id number] 08-Jun-1998 13: [address] PROCEDURES documented in this encounter Visit Diagnoses Not on filedocumented in this encounter
--- OUTSIDE RECORDS SUMMARY | 2022-04-12 18:55 | XMS_ITS | Encounter Summary ---
:1960 Author Organization [facility] Address [address] [place] [address] Care Team Providers Name Role Phone Unavailable Primary Care Provider Unavailable Reason for Visit Reason Comments Cyst Triage Encounter Details Date Type Department Care Team Description 03/01/2022 Clinical Communication Department of [facility] Obstetrics and Provider Gynecology in [place], [place] [address] [place] [address] Social History Tobacco Use Types Packs/Day Years Used Date Smoking Tobacco: Never Smokeless Tobacco: Never Sex Assigned at Date Recorded Not on file documented as of this encounter Miscellaneous Notes Telephone Encounter - Patsy Evans - 03/09/2022 9:18 AM CDT LMTCB x 2 Telephone Encounter - aPtsy Evans - 03/04/2022 1:56 PM CDT LMTCB- Please help patient schedule with any CDL B DRIVER including Residents per TB review Telephone Encounter - Nati Gomez - 03/03/2022 12:59 PM CDT 14 pages of outside medical records scanned into Document Viewer. Imaging pushed and viewable in QREADS. Telephone Encounter - Nati Gomez - 03/03/2022 7:12 AM CDT Fax sent to [facility] requesting medical records and imaging (fax # [phone]). Telephone Encounter - Patsy Evans - 03/01/2022 5:21 PM CDT Facility where imaging was done: [place] in [place] Type of imaging: Ultrasound Date of imaging: Oct 2021 OSM viewable in Care Everywhere? [] Yes [x] No OSM viewable in Document Viewer? [] Yes [x] No Patient has until: 03/31/2022 documented in this encounter Plan of Treatment Upcoming Encounters Date Type Specialty Care Team Description 05/10/2022 Comprehensive Visit Gynecology Alhaji Fabian ra, M.D. [address] [place] [phone] (Wo rk) documented as of this encounter Visit Diagnoses Not on filedocumented in this encounter
--- OUTSIDE RECORDS SUMMARY | 2022-04-12 18:55 | XMS_ITS | Encounter Summary ---
:1960 Author Organization [facility] Address [address] [place] [address] Care Team Providers Name Role Phone Unavailable Primary Care Provider Unavailable Encounter Details Date Type Department Care Team Description 06/24/1998 - 06/30/1998 Hospital Encounter HX RST AYSE 2G Social History Tobacco Use Types Packs/Day Years Used Date Smoking Tobacco: Never Assessed Sex Assigned at Date Recorded Not on file documented as of this encounter Plan of Treatment Upcoming Encounters Date Type Specialty Care Team Description 05/10/2022 Comprehensive Visit Gynecology Alhaji Fabian ra, M.D. [address] [place], [place] [phone] (Wo rk) documented as of this encounter Procedures Procedure Name Priority Date/Time Associated Diagnosis Comme nts MR BRAIN WITHOUT Routine 06/29/1998 10:31 AM Resu lts for this AND WITH IV SURVEY CREW CHIEF procedure are i n CONTRAST the results section. HXGENERAL PATHOLOGY Routine 06/24/1998 11:14 AM R esults for this REPORT CDT procedure are i n the results section. documented in this encounter Results MR Brain without and with IV Contrast (06/29/1998 10:31 AM SURVEY CREW CHIEF) Anatomical Region Laterality Modality Head, Brain N/A Magnetic Resonance Specimen (Source) Anatomical Collection Method Collection Time Re ceived Time Location / / Volume Laterality 06/29/1998 10:31 AM SURVEY CREW CHIEF Narrative 06/29/1998 12:31 PM SURVEY CREW CHIEF 29-Jun-1998 10:31:00 ??Exam: MRI Hd wo&w Indications: Postop skull base tumor F/U ORIGINAL REPORT - 29-Jun-1998 12:31:00 MR examinatin of the head demonstrates t hat since the preoperative study of 06-04-98, there has been a left frontal craniotomy with subtotal resection of a large portion of the central skull base tumor o ccupying the prepontine and anterior mes encephalic cistern. Considerable residual central skull base tumor volume remains. The residual tumor involves the clivus and left petroclival junction as well as the tip of the left petrous apex. The e xophytic nature of this tumor involves both cavernous sinuses and extends into the left side of the prepontine cistern. 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 I: 113.450 ??D: 10 5.327 ??Mag-12 cc Electronically signed by: ?? Marily Dumont MD. ??[id number] 29-Jun-1998 12: 31 Procedure Note Mega Dumont M.D. - 12/11/2017Forma tting of this note might be different from the original. 29-Jun-1998 10:31:00 Exam: MRI Hd wo&w Indications: Postop skull base tumor F/U ORIGINAL REPORT - 29-Jun-1998 12:31:00 MR examinatin of the head demonstrates t hat since the preoperative study of 06-04-98, there has been a left frontal craniotomy with subtotal resection of a large portion of the central skull base tumor occupying the prepontine and anterior mesencephalic ci barone. Considerable residual central skull base tumor volume remains. The residual tumor involves the clivus and left petroclival junction as well as the tip of the left petrous apex. The exophytic nature of th is tumor involves both cavernous sinuses and extends into the left side of the prepontine cistern. 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 I: 113.450 D: 105.327 Mag-12 cc Electronically signed by: Marily Dumont MD. [id number] 29-Jun-1998 12:31 Mega Hall M.D. IMG MRI PROCEDURES Hx general Pathology Report (06/24/1998 11:14 AM CDT) Specimen Anatomical Collection Method Collection Time Receive d Time (Source) Location / / Volume Laterality 06/24/1998 11:14 06/24/1998 AM CDT 11:14 AM CDT Narrative [facility] - 06/24/1998 11:14 AM CDT [id number] Surgical Pathology Requested By: ? Mega Hall M.D. ? ([id number]) ?? TISSUE DESCRIPTION: ?? Tissue from the brain (left frontal, 1 x 0.4 x 0.2 cm, aggregating 2.4 x 1.2 x 0.2 cm, ?? aggregating 3.5 x 3.5 x 1 cm) ?? [id number] A1, A2, A3, A4 ?? DIAGNOSIS: ?? 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 ?? Seen with Dr. Kahlil Ruby and Dr. Gt Darnell. ?? COMMENT: ?? Immunohistochemical studies performe d on paraffin embedded tissue reveal that the tumor cells ?? do not react with antibodies to lexi tin. ??Although chondroid chordomas are typically positive ?? for keratin, the location and clinic al presentation are supportive of the above diagnosis. ?? [id number] ?Vivi Zhang M.D.:beverley ?? PRELIMINARY FROZEN SECTION CONSULTAT ION: ?? Brain, left frontal, biopsy: ??Chond roid proliferation. ??Hold to classify. Seen with Dr. RICE ?? Flori. Procedure Note 11/24/2017 [id number] Surgical Pathology Requested By: Mega Hall M.D. ([id number]) TISSUE DESCRIPTION: Tissue from the brain (left frontal, 1 x 0.4 x 0.2 cm, aggregating 2.4 x 1.2 x 0.2 cm, aggregating 3.5 x 3.5 x 1 cm) [id number] A1, A2, A3, A4 DIAGNOSIS: Brain, left frontal, excisional biopsy: Chondroid chordoma. Seen with Dr. Kahlil Ruby and Dr. Gt Darnell. COMMENT: Immunohistochemical studies performed o n paraffin embedded tissue reveal that the tumor cells do not react with antibodies to keratin . Although chondroid chordomas are typically positive for keratin, the location and clinical presentation are supportive of the above diagnosis. [id number] Vivi Zhang M.D.:beverley PRELIMINARY FROZEN SECTION CONSULTATION : Brain, left frontal, biopsy: Chondroid proliferation. Hold to classify. Seen with Dr. DWAYNE Ruby. Mega Hall M.D. LAB PATHOLOGY/CYTOLOGY ORDER STEVE Performing Organization Address City/State/ZIP Code Phon e Number [facility] - [address] [place], [place] [address] [facility] documented in this encounter Visit Diagnoses Not on filedocumented in this encounter
--- OUTSIDE RECORDS SUMMARY | 2022-04-12 18:55 | XMS_ITS | Clinical Summary ---
:1960 Author Organization [facility] Address [address] [place] [address] Care Team Providers Name Role Phone Unavailable Primary Care Provider Unavailable Source Comments Patient records contain information from all sites at [facility]. For routine questions regarding patient records, call [phone] during business hours, M-F 8:00 AM - 5:00 PM Central Time. Record requests for emergency care only can be directed to [phone] at any time.[facility] Allergies Active Allergy Reactions Severity Noted Date Comments Aspirin Nausea Only, GI intolerance 06/03/2003 Beta Carotene GI intolerance 07/03/2003 Desmopressin Nausea Only 08/18/2009 Ibuprofen GI intolerance, Nausea And Vomiting, High 05/07 Swelling Salicylates Nausea And Vomiting 02/02/2008 Medications Medication Sig Dispensed Refills Start Date End Date Status carvediloL (COREG) Take 1 tablet by 0 11/30/2021 Active 6.25 mg tablet mouth daily. cholecalciferol, TAKE FIVE TABLETS 0 03/23/2016 Active vitamin D3, 25 mcg (125 MCG) BY MOUTH (1,000 Unit) tablet EVERY DAY (VITAMIN D) clopidogreL TAKE ONE TABLET BY 0 07/16/2015 12/02/19 23 Active (PLAVIX) 75 mg MOUTH EVERY DAY tablet INDEFINITELY TO PREVENT BLOOD CLOTS AND STROKE. desmopressin 1 spray in each 0 03/03/2021 12/01/2022 Active (DDAVP) 10 nostril every other mcg/spray (0.1 mL) day nasal spray ferrous sulfate 325 325 mg. 0 11/29/2021 Active mg (65 mg iron) tablet omega 1,000 mg. 0 09/09/2020 Active 0-gtx-rsg-fish oil 1,000 mg (120 mg-180 mg) capsule insulin aspart INJECT 3 UNITS 0 08/17/2021 3 Active U-100 (NovoLOG SUBCUTANEOUSLY THREE FlexPen) 100 TIMES A DAY FOR unit/mL (3 mL) DIABETES injection (REFRIGERATE UNUSED PENS. PEN GOOD FOR 28 DAYS ONCE USED. DO NOT REFRIGERATE PENS IN USE.) insulin glargine INJECT 5 UNITS UNDER 0 08/17/2021 0 12/01/2022 Active (Lantus Solostar THE SKIN EVERY DAY U-100 Insulin) 100 FOR DIABETES unit/mL (3 mL) -DISCARD PEN 28 DAYS injection AFTER INITIAL USE levothyroxine 75 mcg every morning 0 10/01/2021 Active (SYNTHROID, before breakfast. LEVOTHROID) 75 mcg Except on Sundays tablet losartan (COZAAR) Take 1 tablet by 0 08/18/2021 Active 25 mg tablet mouth daily. mirtazapine 0 09/10/2021 Active (REMERON) 15 mg tablet polyethylene glycol TAKE 17 GRAMS BY 0 08/18/2021 Active (MIRALAX) 17 MOUTH EVERY DAY gram/dose oral NEEDED FOR powder CONSTIPATION *MIX IN 4 TO 8 OUNCES OF LIQUID DIRECTED*USE COVER TO MEASURE POWDER* predniSONE 0 10/01/2021 Active (DELTASONE) 5 mg tablet atorvastatin Take 1 tablet by 0 Active (LIPITOR) 20 mg mouth. tablet thiamine (VITAMIN Take 1 tablet by 0 08/18/2021 Active B1) 100 mg tablet mouth daily. bisacodyL TAKE TWO TABLETS BY 0 11/29/2021 3 Active (DULCOLAX) 5 mg EC MOUTH EVERY DAY tablet NEEDED FOR CONSTIPATION glucagon (GlucaGen) INJECT 1MG 0 11/30/2021 Active 1 mg/mL injection INTRAMUSCULAR NEEDED FOR LOW BLOOD SUGAR; MAY REPEAT IN 15 MINUTES IF NEEDED Encounters Date Type Specialty Care Team Description 03/01/2022 Clinical Communication Gynecology Prescheduling, Pro vider Cyst Triage from Last 3 Months Family History Relation Name Status Comments Father Mother Alive Social History Tobacco Use Types Packs/Day Years Used Date Smoking Tobacco: Never Smokeless Tobacco: Never Sex Assigned at Date Recorded Not on file Last Filed Vital Signs Vital Sign Reading Time Taken Comments Blood Pressure 127/74 12/14/2021 2:11 PM CDT Pulse 64 12/14/2021 2:11 PM CDT Temperature - - Respiratory Rate - - Oxygen Saturation - - Inhaled Oxygen Concentration - - Weight - - Height - - Body Mass Index - - Plan of Treatment Upcoming Encounters Date Type Specialty Care Team Description 05/10/2022 Comprehensive Visit Gynecology Alhaji Fabian ra, M.D. [address] [place] [phone] (Wo rk) Health Maintenance Due Date Last Done Comments CT Colonography 1960 Cervical Cancer Screening 1960 Cologuard 1960 Colonoscopy 1960 Colorectal Cancer Screening 1960 Creatinine Level 1960 FIT 1960 Fasting Glucose for 1960 Diabetes Screening Fasting Lipid Panel 1960 HIV Screening 1960 Hepatitis B Vaccines (1 of 1960 3 - 3-dose series) Hepatitis C Screening 1960 Mammogram 1960 Potassium Level 1960 Sodium Level 1960 Thyroid Stimulating Hormone 1960 (TSH) test for thyroid function Depression Screening 09/04/2021 (Annual PHQ-2) COVID-19 Vaccine (4 - 05/27/2022 01/24/2022, 12/08/2021, Booster for Moderna series) 11/02/2021 Influenza Vaccine (#1) 2022 08/01/2016, 05/21/2014, 06/22/2011, Additional history exists DTaP,Tdap,and Td Vaccines 11/03/2031 11/02/2021 (2 - Td or Tdap) Pneumococcal vaccine (0-64 Aged Out 02/03/2017 No lo nger eligible years) based on patient 's age to complete this topic Zoster Vaccines Completed 01/24/2022, 11/23/2021 Medical Devices Implanted Type Area Studio Couch Frame Builder Device Shelf Model / Identifier Expiration Date Ser ial / Lot W Yogesh-Plate 1.5 Y Dbl Reg - Brown [id number] Hardware e.g. BioMe t Implanted: Qty: 3 on 06/24/1998 pins/screws/r ods Description: Device Studio Couch Frame Builder - Biome t [employer] Device Status Text - [id number]. Patch Dura-Guard 6x 8 - Brown [id number] Mesh or Patch [employer] Implanted: Qty: 1 on 06/24/1998 Description: Device Studio Couch Frame Builder - Synov is. Device Status Text - [id number]. 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
== END 2022-03-17 13:44 | disposition home or self-care (01) ==
LOC: AMB 03-23 11:13
PROVIDERS: Visit Provider Family Medicine
DX: S09.90XA Unspecified injury of head, initial encounter (principal); S49.81XA Other specified injuries of right shoulder and upper arm, initial encounter; R51.9 Headache, unspecified; W18.30XA Fall on same level, unspecified, initial encounter; Y92.003 Bedroom of unspecified non-institutional (private) residence as the place of occurrence of the external cause
CPT/HCPCS: A0425; A0427

== ENCOUNTER 2022-06-10 12:51 | Outpatient (CLI) | payer OTHER, SELFPAY ==
--- OUTSIDE RECORDS SUMMARY | 2022-06-10 12:57 | XMS_ITS | Continuity of Care Document ---
:[address] [facility] Care Team Providers Name Role Phone [facility] Unavailable Unavailable Problems Combined list of problems from Department of Defense and Veterans Affairs facilities. It does not include entries that were removed or entered in error. Problem Status Onset Problem Date of Comments Source Date Type Resolution Intracranial tumor Active Condition Apr 15, SAULO Calixto 2018 [facility] Entered By: [facility] AMALIA MAHONEY Comment: s/p brain tumor surgery 1996 Brace Inactive Condition DoD bone neoplasm, benign Inactive Condition [facility] - chondroma currently in school Inactive Condition DoD having difficulty educational handicap Observation For Inactive Condition DoD Suspected Condition dizziness Inactive Condition DoD bone neoplasm - Active Condition [facility] 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 cortical hormone MAT [facility] Anemia Active Condition [facility] Anemia (SNOMED CT Active Condition SP ARK M. [id number]) [facility] Benign neoplasm of Active Condition [facility] bone Brain tumor Active Condition [facility] Cancer cervix Active Condition January 07 APOLIS screening status 2021 [facility] Entered By: KEY ROGEL Comment: 08/25/2003 PAP NILM January 07, 2022 Entered By: KEY ROGEL Comment: PAP NILM ([place], scanned in to vista) January 07, 2022 Entered By: KEY ROGEL Comment: 11/29/2010 PAP NILM ([place] scanned in to vista) January 07, 2022 Entered By: KEY ROGEL Comment: 02/06/2012 PAP NILM ([place] scanned in to vista) January 07, 2022 Entered By: KEY ROGEL Comment: 06/25/2014 PAP NILM-comple h[place] elsewhere (per [facility], [facility] January 07, 2022 Entered By: KEY ROGEL Comment: 12/20/2021 PAP NILM/HPV Neg, low risk, next due for co-test in 5 years, 12/2026 Danger of harm to Active Condition SP ILIA Calixto self (ICD-9-CM MATSU MATTY E953.9) [facility] Diabetes insipidus Active Condition S NIGHAT Calixto (SNOMED CT 36629057) [facility] Diabetes Insipidus * Active Condition [facility] (ICD-9-CM 253.5) [facility] Diabetes mellitus Active Condition SP ILIA Calixto [facility] Dislocations, sprains Active Condition SAULO Calixto and strains involving [facility] thorax with [facility] back and pelvis (SNOMED CT 972932932) Disorder of Active Condition SAULO [place] sphenoidal sinus [place] (SNOMED CT 378577878) [facility] Dry eyes Active Condition Apr 15 SAULO Nat 2018 [facility] Entered By: [facility] AMALIA MAHONEY Comment: sec to [place] s/p punctal plugs OU Essential Active Condition [facility] hypertension Fatigue Active Condition [facility] Homeless [facility] Hyper[facility] Hypertension Active Condition [facility] Nat [facility] Hypertension * Active Condition [place] (ICD-9-CM 401.9) [facility] Hypopituitarism * Active Condition [place] (ICD-9-CM 253.2) [facility] Hypothyroidism Active Condition JANETT BRYANT [facility] Hypothyroidism Active Condition SAULO Calixto (SNOMED CT 08746647) [facility] Knee pain (SNOMED CT Active Condition [facility]. [id number][facility] Malignant neoplasm of Active Condition [facility] brain (ICD-9-CM MEDI GUILLAUME 191.9) CENTER Other Specified Active Condition SPAR K M. Housing or Economic [facility] Circumstances [facility] (ICD-9-CM V60.89) Pain in right foot Active Condition S NIGHAT Calixto [facility] Pain of left elbow Active Condition S NIGHAT [place] joint [facility] Pelvic peritonitis Active Condition [place] [facility] Routine Gynecological Active Condition SAULO Cal[place]xt[place] examination (ICD-9-CM [facility] V72.31) [facility] Stroke Active Condition [facility] Syncope Active Condition SAULO VELÁSQUEZ [facility] Type 2 diabetes Active Condition [facility] mellitus Upper respiratory Active Condition SP AR[facility] M. 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 Provider Comments: Stroke ([facility] [id number]) Diagnosis: ICD-10-CM Active Diagnosis [facility] R41.82 Altered mental status, unspecifiedwith Provider Comments: Altered mental status, unspecified Diagnosis: ICD-10-CM Active Diagnosis [place] H25.13 Age-related V A [facility] nuclear cataract, bilateralwith Provider Comments: Age-related nuclear cataract, bilateral Diagnosis: ICD-10-CM Active Diagnosis [place] Z85.841 Personal [facility] history of malignant neoplasm of brainwith Provider Comments: Brain tumor ([facility] [id number]) Diagnosis: ICD-10-CM Active Diagnosis [place] E11.8 Type 2 diabetes [facility] mellitus with unspecified complicationswith Provider Comments: Type 2 diabetes mellitus ([facility] [id number]) Diagnosis: ICD-10-CM Active Diagnosis [place] E11.65 Type 2 [facility] diabetes mellitus with hyperglycemiawith Provider Comments: Type 2 diabetes mellitus with hyperglycemia Diagnosis: ICD-10-CM Active Diagnosis [place] Z71.81 Spiritual or [facility] methodist counselingwith Provider Comments: Spiritual or methodist counseling Diagnosis: ICD-10-CM Active Diagnosis [place] Z91.81 History of [facility] fallingwith Provider Comments: History of falling Diagnosis: ICD-10-CM Active Diagnosis [place] R41.9 Unsp symptoms [facility] and signs w cognitive functions and awarenesswith Provider Comments: Unsp symptoms and signs w cognitive functions and awareness Diagnosis: ICD-10-CM Active Diagnosis [place] Z46.1 Encounter for [facility] fitting and adjustment of hearing aidwith Provider Comments: Encounter for Fitting and Adjustment of Hearing Aid Diagnosis: ICD-10-CM Active Diagnosis [place] H90.3 Sensorineural [facility] hearing loss, bilateralwith Provider Comments: Sensorineural hearing loss, bilateral Diagnosis: ICD-10-CM Active Diagnosis [place] R26.89 Other [facility] abnormalities of gait and mobilitywith Provider Comments: Other abnormalities of gait and mobility Diagnosis: ICD-10-CM Active Diagnosis [place] Z73.6 Limitation of [facility] activities due to disabilitywith Provider Comments: Limitation of activities due to disability Diagnosis: ICD-10-CM Active Diagnosis [place] R41.841 Cognitive [facility] communication deficitwith Provider Comments: Cognitive communication deficit Diagnosis: ICD-10-CM Active Diagnosis [place] M62.81 Muscle [facility] weakness (generalized)with Provider Comments: Muscle weakness (generalized) Diagnosis: ICD-10-CM Active Diagnosis [place] F03.91 Unspecified V A [facility] dementia with behavioral disturbancewith Provider Comments: Unspecified Dementia with Behavioral Disturbance Diagnosis: ICD-10-CM Active Diagnosis [place] R13.12 Dysphagia, [facility] oropharyngeal phasewith Provider Comments: Dysphagia, oropharyngeal phase Admit Reason: Active Diagnosis [place] WEAKNESS/C6 [facility] FXDiagnosis: ICD-10-CM E11.8 Type 2 diabetes mellitus with unspecified complicationswith Provider Comments: Type 2 diabetes mellitus ([facility] [id number]) Admit Reason: Active Diagnosis [place] WEAKNESS/C6 FX VA S Diagnosis: ICD-10-CM Active Diagnosis [place] W18.39XA Other fall [facility] on same level, initial encounterwith Provider Comments: Other Fall on same Level, Initial Encounter Diagnosis: ICD-10-CM Active Diagnosis [place] I69.315 Cognitive [facility] social or emo def following cerebral infarctionwith Provider Comments: Cognitive social or emotional deficit following cerebral infarction Diagnosis: ICD-10-CM Active Diagnosis [place] I63.9 Cerebral [facility] S infarction, unspecifiedwith Provider Comments: Cerebral Infarction, unspecified Diagnosis: ICD-10-CM Active Diagnosis [facility] M. 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 Diagnosis: ICD-10-CM Active Diagnosis ALBER YUOC Z71.3 Dietary counseling and surveillancewith Provider Comments: Dietary counseling and surveillance Diagnosis: ICD-10-CM Active Diagnosis [place] S09.90XA Unspecified [facility] injury of head, initial encounterwith Provider Comments: Unspecified Injury of Head, Initial Encounter Diagnosis: ICD-10-CM Active Diagnosis ALBER YUOC Z71.9 Counseling, unspecifiedwith Provider Comments: Counseling, unspecified Diagnosis: ICD-10-CM Active Diagnosis [place] R13.10 Dysphagia, [place] [facility] unspecifiedwith Provider Comments: Dysphagia, unspecified Diagnosis: ICD-10-CM Active Diagnosis [place] M62.81 Muscle [facility] weakness (generalized)with Provider Comments: Muscle Weakness (Generalized) Diagnosis: ICD-10-CM Active Diagnosis [place] R13.11 Dysphagia, [facility] oral phasewith Provider Comments: Dysphagia, oral phase Diagnosis: ICD-10-CM Active Diagnosis [place] R26.9 Unspecified [facility] abnormalities of gait and mobilitywith Provider Comments: Unspecified Abnormalities of Gait and Mobility Admit Reason: Active Diagnosis [place] HYPERGLYCEMIA/AMS/BEH [facility] AVIORS Diagnosis: ICD-10-CM Active Diagnosis [place] R41.82 Altered mental [facility] status, unspecifiedwith Provider Comments: Altered Mental Status, unspecified Diagnosis: ICD-10-CM Active Diagnosis [facility] R44.1 Visual hallucinationswith Provider Comments: Visual hallucinations Diagnosis: ICD-10-CM Active Diagnosis [place] H25.813 Combined [facility] forms of age-related cataract, bilateralwith Provider Comments: Combined forms of age-related cataract, bilateral Diagnosis: ICD-10-CM Active Diagnosis [facility] Z23 Encounter for immunizationwith Provider Comments: Encounter for any immunization Diagnosis: ICD-10-CM Active Diagnosis [facility] R44.1 Visual hallucinationswith Provider Comments: Visual Hallucinations Diagnosis: ICD-10-CM Active Diagnosis [place] Z13.6 Encounter for [facility] screening for cardiovascular disorderswith Provider Comments: Encounter for Screening for Cardiovascular Disorders Diagnosis: ICD-10-CM Active Diagnosis [place] I69.328 [facility] following cerebral infarctionwith Provider Comments: Ot speech/lang deficits following cerebral infarction Diagnosis: ICD-10-CM Active Diagnosis [facility] 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 Provider Comments: 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 Diagnosis: ICD-10-CM Active Diagnosis [place] N71.9 Inflammatory V A [facility] disease of uterus, unspecifiedwith Provider Comments: Inflammatory Disease of Uterus, unspecified Diagnosis: ICD-10-CM Active Diagnosis [place] R26.89 Other [facility] abnormalities of gait and mobilitywith Provider Comments: Other Abnormalities of Gait and Mobility Diagnosis: ICD-10-CM Active Diagnosis [place] G46.4 Cerebellar [facility] stroke syndromewith Provider Comments: Cerebellar Stroke Syndrome Diagnosis: ICD-10-CM Active Diagnosis [place] Z65.8 Oth problems V A [facility] related to psychosocial circumstanceswith Provider Comments: Oth problems related to psychosocial circumstances Diagnosis: ICD-10-CM Active Diagnosis [place] N71.0 Acute [facility] inflammatory disease of uteruswith Provider Comments: Acute Inflammatory Disease of Uterus Diagnosis: ICD-10-CM Active Diagnosis [place] Z71.89 Other [facility] specified counselingwith Provider Comments: Other specified counseling Diagnosis: ICD-10-CM Active Diagnosis [place] I63.312 Cerebral [place] [facility] infrc due to thombos of left middle cerebral arterywith Provider Comments: Cerebral Infarction due to Thrombosis of left Middle Cerebral Artery Diagnosis: ICD-10-CM Active Diagnosis [place] Z65.8 Oth problems V A [facility] related to psychosocial circumstanceswith Provider Comments: Other specified Problems Related to Psychosocial Circumstances Diagnosis: ICD-10-CM Active Diagnosis SAULO M. Z76.89 Persons CHRISTINE STARR encountering health [facility] services in oth circumstanceswith Provider Comments: Persons Encountering Health Services in other specified Circumstances Diagnosis: ICD-10-CM Active Diagnosis [facility] Z00.8 Encounter for other general examinationwith Provider Comments: Encounter for other General Examination Diagnosis: ICD-10-CM Active Diagnosis SAULO M. Z71.0 Prsn encntr DORETHA CORTEZ hlth serv to consult [facility] on behalf of another personwith Provider Comments: Person Encountering Health Services to Consult on Behalf of another Person Diagnosis: ICD-10-CM Active Diagnosis SAULO M. E11.9 Type 2 diabetes [place] mellitus without VAM C complicationswith Provider Comments: Type 2 Diabetes Mellitus without Complications Diagnosis: ICD-10-CM Active Diagnosis SAULO M. Z23 Encounter for DORETHA CORTEZ immunizationwith VAM C Provider Comments: Encounter for Immunization Diagnosis: ICD-10-CM Active Diagnosis SAULO M. I10 Essential MATSUN AGA (primary) [facility] hypertensionwith Provider Comments: Hypertension (SCT [id number]) Diagnosis: ICD-10-CM Active Diagnosis SAULO M. Z71.89 Other [place] specified [facility] counselingwith Provider Comments: Other specified Counseling Diagnosis: ICD-10-CM Active Diagnosis SAULO M. Z71.89 Other [place] specified [facility] counselingwith Provider Comments: Counseling,Other Specified Diagnosis: ICD-10-CM Active Diagnosis [facility] H90.3 Sensorineural [facility] hearing loss, bilateralwith Provider Comments: Sensorineural Hearing Loss, Bilateral Diagnosis: ICD-10-CM Active Diagnosis SAULO M. F32.A Depression, DORETHA CORTEZ unspecifiedwith [facility] Provider Comments: Depression, unspecified Diagnosis: ICD-10-CM Active Diagnosis SAULO M. E87.1 Hypo-osmolality [place] and hyponatremiawith [facility] Provider Comments: Hypo-Osmolality and Hyponatremia Diagnosis: ICD-10-CM Active Diagnosis SAULO M. E11.9 Type 2 diabetes [place]JAMIL mellitus without VAM C complicationswith Provider Comments: DM Type 2 w/o Complications Diagnosis: ICD-10-CM Active Diagnosis SAULO M. D39.0 Neoplasm of DORETHA CORTEZ uncertain behavior of [facility] uteruswith Provider Comments: Neoplasm of uncertain behavior of uterus Diagnosis: ICD-10-CM Active Diagnosis SAULO M. R04.0 Epistaxiswith [place] Provider Comments: [facility] Epistaxis Diagnosis: ICD-10-CM Active Diagnosis SAULO M. H04.129 Dry eye [place] syndrome of [facility] unspecified lacrimal glandwith Provider Comments: Dry eyes ([facility] [id number]) Diagnosis: ICD-10-CM Active Diagnosis SAULO M. R55 Syncope and [place] collapsewith Provider [facility] Comments: Syncope and collapse Diagnosis: ICD-10-CM Active Diagnosis SAULO M. E03.9 Hypothyroidism, [place] unspecifiedwith [facility] Provider Comments: Hypothyroidism ([facility] [id number]) Diagnosis: ICD-10-CM Active Diagnosis SAULO M. Z51.81 Encounter for DIDIER therapeutic drug VAM C level monitoringwith Provider Comments: Encounter for Therapeutic Drug Level Monitoring Medications Combined list of outpatient medications from Department of Defense and [facility] Affairs facilities. Medications provided include 1) outpatient medications from the last 15 months, and 2) patient-reported medications. Medication Details Route Status Patient Prescription Prescription Last Ordering Order Source Instructions Expires Number Dispense Provider Date Date A & D APPLY TOPICA ACTIVE JUAN F, 12/30/ [place] OINTMENT TOPICALL LLY KEYANA L 2021 E CB OC OINT,TOP Y THREE TIMES A DAY NEEDED ACETAMINOPH TAKE 1 Active 03/29/2023 [id number] QAWALANGIN , 04/01/ [place] EN (U/D) TO 2 2 MARCIA 2021 [place] 325 MG ORAL TABLETS [place] s TAB BY MOUTH HCS FOUR TIMES A DAY NEEDED FOR PAIN *NO MORE THAN 3000MG PER DAY FROM ALL SOURCES* Akwa Tears INSTILL Active 02/11/2023 [id number] KOBRIN , 03/20/ [place] or Eq. 2 DROPS 2 EVANGELISTA L 2021 olis Solution IN BOTH VA 1.4% EYES Optical FOUR TIMES A DAY NEEDED FOR DRY EYES Alcohol USE 1 Active 06/26/2022 [id number] QAWALANGIN, Antiseptic PAD 2 MARCIA 2021 Pacif ic (Alcohol DIRECTED [place] Swabs Eq.) THREE HCS Pads 70% TIMES A Topical DAY NEEDED FOR SKIN PREP Alcohol USE 1 02/08/2022 [id number] FLETCHER[place]RUSSEL, [place] Antiseptic PAD 2 ISAIAS Grant 2021 Pacifi c (Alcohol DIRECTED [place] Swabs Eq.) THREE HCS Pads 70% TIMES A Topical DAY NEEDED FOR SKIN PREP atorvastati TAKE ONE Active 05/06/2023 [id number] ANAY BOLTONZ, 05/27/ [place] n (U/D) 20 TABLET 2 2021 olis MG ORAL TAB (20MG) [facility] BY MOUTH EVERY DAY atorvastati TAKE Discont 04/28/2023 [id number] DALE Manzo, 05/27/ [place] n (U/D) 40 ONE-HALF inued 2 2021 divya s MG ORAL TAB TABLET [facility] BY MOUTH EVERY DAY atorvastati TAKE Discont 11/30/2022 [id number] KARMEN PARKER, 05/04/ [place] n (U/D) 40 ONE-HALF inued 2 KEYANA L 2021 ol is MG ORAL TAB TABLET [facility] BY MOUTH EVERY DAY ATORVASTATI TAKE ONE ORALLY SUSPEND 05/06/2023 [id number] Yen NEELY 05/05/ [place] N CA 20MG TABLET ED 2 OPH2021 [place] TAB (20MG) HCS BY MOUTH EVERY DAY ATORVASTATI TAKE ORALLY DISCONT 04/28/2023 [id number] Yen LARA 05/05/ [place] CA 40MG ONE-HALF INUED 2 OPH L 2022 [place] TAB TABLET (EDIT) HCS BY MOUTH EVERY DAY ATORVASTATI TAKE ORALLY DISCONT 11/30/2022 [id number] ADALBERTO ELL, 11/29/ [place] 40MG ONE-HALF INUED 2 KEYANA L 2021 E C BOC TAB TABLET (EDIT) BY MOUTH EVERY DAY Bisacodyl INSERT 1 Active 03/19/2023 [id number] PLUNKE TT, 03/24/ [place] (Fleet SUPPOSIT 2 [facility] 2021 olis Bisacodyl ORY(IES) [facility] Eq.) Enema IN 10mg Rectal RECTUM EVERY 4 DAYS NEEDED FOR BOWEL MOVEMENT BISACODYL INSERT 1 RECTAL ACTIVE 03/19/2023 [id number] PLU NKETT, [place] 10MG SUPPOSIT 2 [facility] 2021 [place] SUPP,RTL ORY(IES) HCS IN RECTUM EVERY 4 DAYS NEEDED FOR BOWEL MOVEMENT BISACODYL 5 TAKE TWO Active 11/30/2022 [id number] MITC HELL, 03/20/ [place] MG ORAL TABLETS 2 KEYANA L 2021 olis TBEC BY MOUTH [facility] EVERY DAY NEEDED FOR CONSTIPA TION BISACODYL TAKE TWO ORALLY ACTIVE 11/30/2022 [id number] PAULA RODY, 11/30/ [place] 5MG TAB,EC TABLETS 2 KEYANA L 2021 E C BOC BY MOUTH EVERY DAY NEEDED FOR CONSTIPA TION CALCIUM TAKE ONE ORAL ACTIVE BRIGIDA BRIZUELA 03/12/ MJ RK 600MG ( TABLET A 2013 M. CARBONATE)/ BY MOUTH MAT[place] NA VITAMIN D DAILY [facility] 200UNT TAB CALCIUM TAKE ONE ORALLY ACTIVE 08/03/2022 [id number] Yen NEELY 05/05/ [place] CARBONATE TABLET 2 OPHIE L 2021 [place] 650MG TAB BY MOUTH HCS TWICE A DAY WITH MEAL. SEPARATE FROM LEVOTHYR OXINE BY 4 HOURS. TO PREVENT OSTEOPOR JOHN WHILE TAKING PREDNISO NE. carboxymeth INSTILL Active 03/29/2023 [id number] DUCKE R, 04/04/ [place] ylcel 0.5% 1 DROP 2 NALLELY 2022 olis EYE DROP [2 IN BOTH G [facility] X15ML] EYES FOUR TIMES A DAY FOR DRY EYES CARBOXYMETH INSTILL BOTH ACTIVE 05/31/2023 [id number] DUCKE R,LA [place] YLCELLULOSE 1 DROP EYES 2 URENCE G 2021 [place] NA 0.5% IN BOTH HCS (PF) EYES SOLN,OPH,0. FOUR 4ML TIMES A DAY CARBOXYMETH INSTILL BOTH ACTIVE 03/29/2023 [id number] DUCKE R,LA [place] YLCELLULOSE 1 DROP EYES 2 URENCE G 2021 [place] NA 0.5% IN BOTH HCS SOLN,OPH EYES FOUR TIMES A DAY FOR DRY EYES carvedilol TAKE ONE Active 04/28/2023 [id number] SCHOL TZ, [place] (U/D) 3.125 TABLET 2 MADHU L 2021 olis MG ORAL TAB BY MOUTH [facility] TWICE A DAY CARVEDILOL TAKE Discont 12/01/2022 [id number] TRISH L, 05/04/ [place] (U/D) 6.25 ONE-HALF inued 2 KEYANA L 2021 ol is MG ORAL TAB TABLET [facility] BY MOUTH TWICE A DAY CARVEDILOL TAKE ONE ORAL ACTIVE 11/11/2022 [id number] SUMAYA H,S SPARK 3.125MG TAB TABLET 2 USAN K 2021 M. BY MOUTH [place] TWICE A GA [facility] DAY FOR HEART CARVEDILOL TAKE ONE ORALLY HOLD 04/28/2023 [id number] SCHOL TZ,S [place] 3.125MG TAB TABLET 2 OPHIE L 2021 [place] BY MOUTH HCS TWICE A DAY CARVEDILOL TAKE ORALLY DISCONT 12/01/2022 [id number] ADALBERTOE LL, 11/30/ [place] 6.25MG TAB ONE-HALF INUED 2 KEYANA L 2021 E [facility] TABLET (EDIT) BY MOUTH TWICE A DAY CHOLECALCIF TAKE Active 12/01/2022 [id number] TRISH L, [place] (VIT D3) FIVE 2 KEYANA L 2021 olis 1,000 UNIT TABLETS [facility] ORAL TAB (125 MCG) BY MOUTH EVERY DAY (VITAMIN D) CHOLECALCIF TAKE ORALLY ACTIVE 12/01/2022 [id number] MITCHE LL, 11/30/ [place] JEFFREY 25MCG FIVE 2 KEYANA L 2021 E CBO C (1,000UNIT) TABLETS TAB (125 MCG) BY MOUTH EVERY DAY (VITAMIN D) CHOLECALCIF TAKE ONE ORAL ACTIVE EJ,S 03/23/ SPARK JEFFREY 25MCG TABLET USAN K 2016 M. (1,000UNIT) BY MOUTH [place] NA TAB ONCE GA [facility] DAILY CINNAMON TAKE ORALLY ACTIVE JUAN F, 12/30/ [facility]ICK [facility] CAP/TAB 2000MG KEYANA L 2021 E CBOC BY MOUTH CLOPIDOGREL TAKE ONE Active 04/28/2023 [id number] SCHO LTZ, 05/10/ [place] (U/D) 75 MG TABLET 2 MADHU L 2021 olis ORAL TAB BY MOUTH [facility] EVERY DAY INDEFINI TELY TO PREVENT BLOOD CLOTS AND STROKE. CLOPIDOGREL TAKE ONE Discont 12/01/2022 [id number] PAULA RODY, 05/04/ [place] (U/D) 75 MG TABLET inued 2 KEYANA L 2021 divya s ORAL TAB BY MOUTH [facility] EVERY DAY INDEFINI TELY TO PREVENT BLOOD CLOTS AND STROKE. CLOPIDOGREL TAKE ONE ORALLY SUSPEND 04/28/2023 [id number] SCHOLTZ,S 05/05/ [place] BISULFATE TABLET ED 2 OPHIE L 2021 [place] 75MG TAB BY MOUTH HCS EVERY DAY INDEFINI TELY TO PREVENT BLOOD CLOTS AND STROKE. CLOPIDOGREL TAKE ONE ORALLY DISCONT 12/01/2022 [id number] JUAN F, 11/30/ [place] BISULFATE TABLET INUED 2 KEYANA L 2021 E CBO C 75MG TAB BY MOUTH (EDIT) EVERY DAY INDEFINI TELY TO PREVENT BLOOD CLOTS AND STROKE. COZAAR TAKE Discont 11/30/2022 [id number] JUAN F, 0 05/27/ [place] (BRAND) 50 ONE-HALF inued 2 KEYANA L 2021 ol is MG ORAL TAB TABLET [facility] BY MOUTH EVERY DAY CRANBERRY TAKE 1 ORALLY ACTIVE SHADY,WH 02/18/ [place] EXTRACT CAPSULE ITNEY M 2021 E [facility] CAP/TAB BY MOUTH EVERY DAY CRANBERRY TAKE ONE ORAL ACTIVE BRIGIDA BRIZUELA 03/12/ S [place] EXTRACT CAPSULE/ A H 2013 M. CAP/TAB TABLET [place] BY MOUTH GA [facility] DAILY Desmopressi SPRAY 1 Discont 04/28/2023 [id number] SCHO LTZ, 05/22/ [place] n Acetate SPRAY IN inued 2 MADHU L 2021 olis (DDAVP Eq.) ONE [facility] [place] 10mcg NOSTRIL Nasal TWICE A WEEK EVERY MONDAY\T \D AY DIRECTED Desmopressi SPRAY 1 Discont 12/01/2022 [id number] CHANCE CHAVARRIA 05/04/ [place] n Acetate SPRAY IN inued 2 L 2021 olis (DDAVP Eq.) ONE [facility] [place] 10mcg NOSTRIL Nasal TWICE A WEEK EVERY MONDAY\T \MONNESD AY DIRECTED Desmopressi SPRAY 1 Discont 11/30/2022 [id number] MITC HELL, 12/01/ [place] Acetate SPRAY inued 2 KEYANA L 2021 olis (DDAVP Eq.) (10 MCG) [facility] [place] 10mcg IN ONE Nasal NOSTRIL AT BEDTIME DESMOPRESSI SPRAY 1 NOSTRI ACTIVE 08/28/2022 [id number] JOSIAH TURNER 05/31/ [place] ACETATE SPRAY IN L 2 ER 2021 OLIS [place] 0.1MG/ML ONE HCS SOLN,NASAL NOSTRIL SPRAY TWICE A (REFRIGERAT WEEK E) EVERY MONDAY and Y DIRECTED DESMOPRESSI SPRAY 1 NOSTRI DISCONT 04/28/2023 [id number] Yen LEE 05/02/ [place] ACETATE SPRAY IN L INUED 2 OPHIE L 2021 OLIS VA 0.1MG/ML ONE HCS SOLN,NASAL NOSTRIL SPRAY TWICE A (REFRIGERAT WEEK E) EVERY MONDAY and Y DIRECTED DESMOPRESSI SPRAY 1 NOSTRI DISCONT 12/01/2022 [id number] L EE,FLETCHER L 04/01/ [place] ACETATE SPRAY IN L INUED 2 2021 OLIS VA 0.1MG/ML ONE (EDIT) HCS SOLN,NASAL NOSTRIL SPRAY TWICE A (REFRIGERAT WEEK E) EVERY MONDAY and Y DIRECTED DESMOPRESSI SPRAY 1 NOSTRI DISCONT 11/30/2022 [id number] M ITCHELL, 11/30/ [place] N ACETATE SPRAY L INUED 2 KEYANA L 2021 E [facility] 0.1MG/ML (10 MCG) (EDIT) SOLN,NASAL IN ONE SPRAY NOSTRIL (REFRIGERAT AT E) BEDTIME DEXTROSE TAKE 1 ACTIVE 12/25/2021 [id number] EJS 11/25/ [place] 15GM/32ML TUBE (15 2 USAN K 2021 M. GEL,ORAL,PK GRAMS OF MATSU NA T GLUCOSE) [facility] EVERY DAY NEEDED BY MOUTH TO TREAT HYPOGLYC EMIA DEXTROSE TAKE 15 ORALLY ACTIVE 12/01/2022 [id number] TRISH L, 11/30/ [place] 15GM/37.5GM GRAMS BY 2 KEYANA L 2021 E [facility] SQUEEZE MOUTH TUBE NEEDED FOR LOW BLOOD SUGAR - RECHECK BLOOD SUGAR 15 MINUTES AFTER ADMINIST RATION DEXTROSE 1 TUBE ORALLY SUSPEND 03/24/2023 [id number] QAWALANGIN, C SPARK 24GM/31GM (24 ED 2 HADWICK A 2021 M. SQUEEZE GRAMS OF [place]SU[place] TUBE GLUCOSE) [facility] ORALLY EVERY DAY NEEDED TO TREAT HYPOGLYC EMIA DEXTROSE 1 TUBE ORALLY DISCONT 11/02/2022 [id number] QAWALANGIN, C SPARK 24GM/31GM (24 INUED 2 HADWICK A 2021 M. SQUEEZE GRAMS OF [place] TUBE GLUCOSE) [facility] ORALLY EVERY DAY NEEDED TO TREAT HYPOGLYC EMIA. DEXTROSE 4 CHEW Active 03/05/2023 [id number] EDUARDO Solorzano 03/19/ [place] GM ORAL FOUR 2 IDT, NATALYA 2021 olis CHEW TABLETS D [facility] BY MOUTH DIRECTED TO TREAT HYPOGLYC EMIA Dr Pal[place] TAKE ONE Active 04/28/2023 [id number] SCHOLT Z, [place] Prednisone TABLET 2 MADHU L 2021 olis Tablet 5 mg BY MOUTH [facility] Oral EVERY DAY WITH FOOD Dr Palma TAKE ONE Discont 11/30/2022 [id number] ADALBERTO BAGLEY, [place] Prednisone TABLET inued 2 KEYANA L 2021 olis Tablet 5 mg BY MOUTH [facility] Oral EVERY DAY WITH FOOD EMPAGLIFLOZ TAKE ONE ORALLY DISCONT 08/03/2022 [id number] CHIN,S [place] IN 10MG TAB TABLET INUED 2 OPHIE L 2021 [facility] (10MG) HCS BY MOUTH EVERY MORNING TO CONTROL BLOOD SUGAR EMPAGLIFLOZ TAKE Discont 07/26/2022 [id number] DALE Manzo, [place] IN 25 MG ONE-HALF inued 2 MADHU L 2021 olis ORAL TAB TABLET [facility] BY MOUTH EVERY DAY EMPAGLIFLOZ TAKE ORALLY DISCONT 07/26/2022 [id number] RAUL MONTOYAS [place] IN 25MG TAB ONE-HALF INUED 2 OPH L 2021 DIVYA S VA TABLET (EDIT) HCS BY MOUTH EVERY DAY FERROUS SO4 TAKE ONE ORALLY ACTIVE 11/30/2022 [id number] Jeanine WILSON, 11/30/ [place] 325MG TAB TABLET 2 KEYANA L 2021 E CBO C BY MOUTH EVERY DAY -IRON SUPPLEME NT -SPACE 4 HOURS APART FROM LEVOTHYR OXINE PRESCRIP TION ferrous TAKE ONE Active 11/30/2022 [id number] JUAN F [place] sulf (U/D) TABLET 2 KEYANA L 2021 olis 65MG BY MOUTH [facility] (325MG) EVERYDAY ORAL TAB -IRON SUPPLEME NT -SPACE 4 HOURS APART FROM LEVOTHYR OXINE PRESCRIP TION FIBER TAKE MIX ORALLY ACTIVE JUAN F COURTNEY EAP POWDER,ORAL 1-2 TSP KEYANA L 2021 OL IS VA WITH 8 HCS OZ FLUID AND TAKE BY MOUTH EVERY DAY FISH OIL TAKE ONE ORALLY SUSPEND 11/30/2022 [id number] PAULA RODY, 11/30/ [place] 1000MG CAPSULE ED 2 KEYANA L 2021 E [facility] (500MG BY MOUTH DHA/EPA) EVERY CAP,ORAL DAY FOR CHOLESTE ROL fluconazole TAKE ONE 12/23/2021 [id number] VELMA S, 12/30/ [place] (U/D) 150 TABLET 2 KOJO A 2021 [place] MG ORAL TAB BY MOUTH Islan ds EVERY 3 [facility] DAYS FOR 2 DOSES FOR INFECTIO N FLUCONAZOLE TAKE ONE ORAL ACTIVE 12/23/2021 [id number] RONA ,CAR 11/23/ [place] 150MG TAB TABLET 2 A A 2021 M. BY MOUTH MAT[place] EVERY 3 [facility] DAYS FOR 2 DOSES FOR INFECTIO N GARLIC OIL TAKE 1 ORAL ACTIVE GELACIOLYLEI 03/12/ SP ARK CAP CAPSULE A 2013 M. BY MOUTH MAT[place] DAILY [facility] GLUCAGON INJECT INTRAM ACTIVE 12/01/2022 [id number] CHANCE CHAVARRIA 11/30/ [place] 1MG/CATHERINE 1MG USCULA 2 2021 [facility] [place] INJ,EMERGEN INTRAMUS R [facility] CY KIT CULAR NEEDED FOR LOW BLOOD SUGAR; MAY REPEAT IN 15 MINUTES IF NEEDED GLUCERNA DRINK ORALLY DISCONT 02/18/2023 [id number] JUAN F , 02/23/ [place] THERAPEUTIC CONTENTS INUED 2 KEYANA L 2021 E [facility] NUTRITION OF ONE SHAKE CONTAINE LIQUID R BY VANILLA MOUTH EVERY DAY BETWEEN MEALS Glucose TAKE 15 Active 12/01/2022 [id number] JUAN F, 12/02/ [place] 0.4mg/mg, GRAMS BY 2 KEYANA L 2021 divya s Gel/Jelly, MOUTH [facility] Oral NEEDED FOR LOW BLOOD SUGAR - RECHECK BLOOD SUGAR 15 MINUTES AFTER ADMINIST RATION GLUCOSE 4GM CHEW ORALLY ACTIVE 05/20/2023 [id number] HORACE HAJI 05/20/ [place] TAB,CHEW FOUR 2 DSEY R 2021 [place] TABLETS HCS BY MOUTH DIRECTED TO TREAT HYPOGLYC EMIA GLUCOSE 4GM CHEW ORAL ACTIVE 11/02/2022 [id number] QAWALANGIN, C 11/01/ [place] TAB,CHEW FOUR 2 HADWICK A 2021 M. TABLETS MATSUNA BY MOUTH [facility] DIRECTED TO TREAT HYPOGLYC EMIA. GLUCOSE 4GM CHEW ORALLY DISCONT 03/05/2023 [id number] ATKINS SCHM 03/04/ [place] TAB,CHEW FOUR INUED 2 NIKOSTNATALYA 2021 [place] TABLETS (EDIT) D HCS BY MOUTH DIRECTED TO TREAT HYPOGLYC EMIA GLUCOSE USE 1 MISCEL ACTIVE 05/20/2023 [id number] HORACE HAJI 05/20/ [place] SENSOR SENSOR LANEOU 2 DSEY R 2021 [place] FREESTYLE EVERY 14 S HCS [place] 2 DAYS GLUCOSE USE 1 MISCEL DISCONT 12/18/2022 [id number] SHADYIKE 12/17/ [place] SENSOR SENSOR LANEOU INUED 2 ITNEY M 2021 E [facility] FREESTYLE EVERY 14 S [place] 2 DAYS Insulin INJECT 2 Active 07/26/2022 [id number] EAGLEOLLINDSAY, 05/10/ [place] Aspart UNITS 2 MADHU L 2021 olis 100U/mL, UNDER [facility] Injection, THE SKIN 3mL Pen EVERY Injector DAY AT 11AM AND INJECT 4 UNITS EVERY EVENING BEFORE DINNER INJECT IMMEDIAT OPHELIA BEFORE MEALS, HOLD DOSE IF BLOOD SUGAR IS LESS THAN 80 Insulin INJECT 3 Active 10/15/2022 [id number] NATALYA LAMBERT 01/15/ [place] Aspart UNITS 2 KINA 2021 [place] 100U/mL, [facility] [place] Injection, EOUSLY HCS 3mL Pen THREE Injector TIMES A DAY FOR DIABETES (REFRIGE RATE UNUSED PENS. PEN GOOD FOR 28 DAYS ONCE USED. DO NOT REFRIGER ATE PENS IN USE.) Insulin INJECT 4 Discont 12/01/2022 [id number] CLYDE CHAVARRIA 03/18/ [place] Aspart UNITS inued 2 L 2021 olis 100U/mL, UNDER [facility] Injection, THE SKIN 3mL Pen BEFORE Injector MEALS -INJECT IMMEDIAT OPHELIA BEFORE MEALTIME - INJECT ONLY IF EATING AND IF BLOOD GLUCOSE IS GREATER THAN 100. Insulin INJECT 4 Active 07/26/2022 [id number] CHIN, 05/10/ [place] Glargine UNITS 2 MADHU L 2021 olis 100U/mL, UND[facility] Injection, THE SKIN Pen EVERY Injector MORNING Insulin INJECT 8 Discont 03/05/2023 [id number] KLEINSC HM 03/25/ [place] Glargine UNITS inued 2 IDTNATALYA 2021 olis 100U/mL, UNDER D [facility] Injection, THE SKIN Pen EVERY Injector MORNING FOR DIABETES -DISCARD PEN 28 DAYS AFTER INITIAL USE Insulin INJECT 5 Discont 12/01/2022 [id number] TRISH L, 03/18/ [place] Glargine UNITS inued 2 KEYANA L 2021 olis 100U/mL, UND[facility] Injection, THE SKIN Pen EVERY Injector DAY FOR DIABETES -DISCARD PEN 28 DAYS AFTER INITIAL USE INSULIN REG INJECT 3 SUBCUT ACTIVE 10/15/2022 [id number] Yen [facility] HUMAN 100 UNITS ANEOUS 2 USAN K 2021 M. U/ML INJ SUBCUTAN MATSUNA NOVOLIN R EOUSLY [facility] THREE TIMES A DAY BEFORE MEALS FOR DIABETES (REFRIGE RATE UNOPENED VIALS. DISCARD OPENED VIAL AFTER 42 DAYS) INSULIN,ASP INJECT 3 SUBCUT ACTIVE 10/15/2022 [id number] AMISHA [facility] ART,HUMAN UNITS ANEOUS 2 KINA 2021 M. 100U/ML,NOV SUBCUTAN MATSU NA OLOG,FLEXPE EOUSLY [facility] N,3ML THREE TIMES A DAY FOR DIABETES (REFRIGE RATE UNUSED PENS. PEN GOOD FOR 28 DAYS ONCE USED. DO NOT REFRIGER ATE PENS IN USE.) INSULIN,ASP INJECT 2 SUBCUT DISCONT 07/26/2022 [id number] Yen NEELY 05/02/ [place] ART,HUMAN UNITS ANEOUS INUED 2 OPHIE L 2021 [place] 100U/ML,NOV UNDER [facility] OLOG,FLEXPE THE SKIN N,3ML EVERY DAY AT 11AM AND INJECT 4 UNITS EVERY EVENING BEFORE DINNER INJECT IMMEDIAT OPHELIA BEFORE MEALS, HOLD DOSE IF BLOOD SUGAR IS LESS THAN 80 INSULIN,ASP INJECT 4 SUBCUT DISCONT 12/01/2022 [id number] CHANCE CHAVARRIA 11/30/ [place] ART,HUMAN UNITS ANEOUS INUED 2 2021 [place] 100U/ML,NOV UNDER [facility] OLOG,FLEXPE THE SKIN N,3ML BEFORE MEALS -INJECT IMMEDIAT OPHELIA BEFORE MEALTIME - INJECT ONLY IF EATING AND IF BLOOD GLUCOSE IS GREATER THAN 100. INSULIN,GLA INJECT SUBCUT ACTIVE 10/15/2022 [id number] FLETCHERGRICEL H,S 10/14/ [place] RGINE,HUMAN 20 UNITS ANEOUS 2 USAN K 2021 M. 100 UNIT/ML SUBCUTAN MATSU NA INJ,SOLOSTA EOUSLY [facility] R,3ML ONCE DAILY FOR DIABETES (REFRIGE RATE UNUSED PENS. IN-USE PENS GOOD FOR 28 DAYS. DO NOT REFRIGER ATE IN-USE PENS.) INSULIN,GLA INJECT 4 SUBCUT DISCONT 07/26/2022 [id number] SCHOLTZ,S 05/02/ [place] RGINE,HUMAN UNITS ANEOUS INUED 2 OPHIE L 2021 [place] 100 UNIT/ML UNDER HCS INJ,SOLOSTA THE SKIN R,3ML EVERY MORNING INSULIN,GLA INJECT 8 SUBCUT DISCONT 03/05/2023 [id number] KLEINSCHM 03/08/ [place] RGINE,HUMAN UNITS ANEOUS INUED 2 IDT,NATALYA 2021 [place] 100 UNIT/ML UNDER D HCS INJ,SOLOSTA THE SKIN R,3ML EVERY MORNING FOR DIABETES -DISCARD PEN 28 DAYS AFTER INITIAL USE INSULIN,GLA INJECT 5 SUBCUT DISCONT 12/01/2022 [id number] JUAN F, 11/30/ [place] RGINE,HUMAN UNITS ANEOUS INUED 2 KEYANA L 2021 E C BOC 100 UNIT/ML UNDER (EDIT) INJ,SOLOSTA THE SKIN R,3ML EVERY DAY FOR DIABETES -DISCARD PEN 28 DAYS AFTER INITIAL USE Levofloxaci TAKE ONE 12/23/2021 [id number] VELMA S, 12/30/ [place] n TABLET 2 KOJO A 2021 [place] (Leva-David) BY MOUTH [place] s Tablet EVERY HCS 750mg Oral OTHER DAY (EVERY 48 HOURS) FOR 10 DAYS FOR INFECTIO N LEVOFLOXACI TAKE ONE ORAL ACTIVE 12/23/2021 [id number] RONA ,CAR SPARK N 750MG TAB TABLET 2 A A 2021 M. BY MOUTH MAT[place] [facility] OTHER DAY (EVERY 48 HOURS) FOR 10 DAYS FOR INFECTIO N LEVOTHYROXI TAKE ONE ORAL ACTIVE 10/15/2022 [id number] [facility] [place] [place] NA 75MCG TABLET 2 [facility] 2021 M. TAB BY MOUTH MATSUNA MONDAY, [facility] ,W ,MONDAY, MONDAY FOR THYROID LEVOTHYROXI TAKE ONE ORAL ACTIVE 10/09/2022 [id number] [facility] [place] NA 75MCG TABLET 2 [facility] 2021 M. TAB BY MOUTH MATSUNA ONCE [facility] DAILY FOR THYROID LEVOTHYROXI TAKE ONE ORALLY SUSPEND 11/30/2022 [id number] JUAN F, 11/30/ [place] NE NA 75MCG TABLET ED 2 KEYANA L 2021 E C BOC TAB BY MOUTH (SYNTHROID) EVERY DAY FOR THYROID - TAKE ON EMPTY STOMACH Levothyroxi TAKE ONE Active 10/09/2022 [id number] [place] Sodium TABLET 2 ISAIAS K 2021 [place] (Levothroid BY MOUTH Islan ds ) Tablet 75 ONCE HCS mcg Oral DAILY FOR THYROID LOSARTAN TAKE ONE ORAL ACTIVE 10/09/2022 [id number] [facility] 25MG TAB TABLET 2 [facility] 2021 M. BY MOUTH [place] ONCE [facility] DAILY FOR BLOOD PRESSURE LOSARTAN TAKE ORALLY DISCONT 11/30/2022 [id number] JUAN F , 11/30/ [place]UG[place] 50MG TAB ONE-HALF INUED 2 KEYANA L 2021 E CB OC TABLET BY MOUTH EVERY DAY Magnesium TAKE ONE Active 03/30/2023 [id number] PLUNKE TT, 04/04/ [place] Oxide CAPSULE 2 [facility] 2021 olis (Uro-Mag BY MOUTH [facility] Eq.) EVERY Capsule DAY [facility] 140mg Oral MAGNESIUM TAKE ONE ORALLY DISCONT 03/30/[id number] UNKETT, 03/29/ [place] OXIDE 140MG CAPSULE INUED 2 [facility] 2021 [place] CAP BY MOUTH HCS EVERY DAY MAGNESIUM TAKE ONE ORALLY ACTIVE 08/03/2022 [id number] EAGLE OLTZ,S 05/05/ [place] OXIDE 400MG TABLET 2 OPHIE L 2021 [place] TAB BY MOUTH HCS EVERY DAY SEPARATE FROM LEVOTHYR OXINE BY 4 HOURS. INCREASE D DOSE 05/05/22 MAGNESIUM TAKE ONE ORAL ACTIVE EJ,Yen [place] OXIDE 400MG TABLET USAN K 2017 M. TAB BY MOUTH MATSUNA ONCE [facility] DAILY NEEDED MELOXICAM TAKE ONE ORAL ACTIVE BRIGIDA RBIZUELA [place] 7.5MG TAB TABLET A H 2013 M. BY MOUTH [place] PRN [facility] metFORMIN TAKE TWO Active 04/28/2023 [id number] SCHOLT Z, 06/01/ [place] (FORTAMET TABLETS 2 MADHU L 2021 olis EQ) 500 MG BY MOUTH [facility] PO TR24 EVERY MORNING FOR DIABETES metFORMIN TAKE TWO Discont 03/05/2023 [id number] ATKINS SCHM 05/04/ [place] (FORTAMET TABLETS inued 2 IDT, NATALYA 2021 olis EQ) 500 MG BY MOUTH D [facility] PO TR24 EVERY MORNING FOR DIABETES METFORMIN TAKE TWO ORALLY SUSPEND 04/28/2023 [id number] SC GERMAIN,S 05/05/ [place] HCL 500MG TABLETS ED 2 OPHIE L 2021 OLIS V A 24HR TAB,SA BY MOUTH HCS EVERY MORNING FOR DIABETES METFORMIN TAKE TWO ORALLY DISCONT 03/05/2023 [id number] KHOI EINSCHM 03/04/ [place] HCL 500MG TABLETS INUED 2 IDT,NATALYA 2021 [place] 24HR TAB,SA BY MOUTH (EDIT) D HCS EVERY MORNING FOR DIABETES metroNIDAZO TAKE ONE 01/26/2022 [id number] TOTH , 01/03/ [place] LE (U/D) TABLET 2 KAMALIN2021 olis 500 MG ORAL BY MOUTH [facility] TAB THREE TIMES A DAY METRONIDAZO TAKE ONE ORALLY 01/26/2022 [id number] TOTH,KAMAL 12/28/ [place] LE 500MG TABLET 2 INI 2021 [place] TAB BY MOUTH HCS THREE TIMES A DAY MINERAL APPLY A BOTH ACTIVE 03/29/2023 [id number] HEATH SOLOMON 03/29/ [place] OIL,LIGHT/P SMALL EYES 2 URENCE G 2021 [place] ETROLATUM AMOUNT HCS (PF) TO BOTH OINT,OPH EYES AT BEDTIME Mirtazapine TAKE Discont 11/30/2022 [id number] MITCHE LL, [place] (Remeron ONE-HALF inued 2 KEYANA L 2021 olis Eq.) Tablet TABLET [facility] 15mg Oral BY MOUTH AT BEDTIME FOR DEPRESSI ON Mirtazapine TAKE ONE Active 04/28/2023 [id number] SCHO LTZ, [place] (Remeron TABLET 2 MADHU L 2021 olis Soltab) BY MOUTH [facility] Tablet 30mg AT Oral BEDTIME FOR DEPRESSI ON Mirtazapine TAKE Discont 12/07/2022 [id number] MITCHE LL, [place] (Remeron ONE-HALF inued 2 KEYANA L 2021 olis Soltab) TABLET [facility] Tablet 30mg BY MOUTH Oral AT BEDTIME FOR DEPRESSI ON MIRTAZAPINE TAKE ONE ORAL ACTIVE 11/11/2022 [id number] [place] 11/10/ [place] 15MG TAB TABLET 2 USAN K 2021 M. BY MOUTH [place] AT [facility] BEDTIME FOR MOOD MIRTAZAPINE TAKE ORAL ACTIVE 11/07/2021 [id number] [facility], S 10/08/ [place] 15MG TAB ONE-HALF 2 USAN K 2021 M. TABLET MATSUNA BY MOUTH [facility] AT BEDTIME FOR SLEEP MIRTAZAPINE TAKE ORALLY DISCONT 11/30/2022 [id number] ADALBERTO ELL, 11/30/ [place] 15MG TAB ONE-HALF INUED 2 KEYANA L 2021 E CB OC TABLET (EDIT) BY MOUTH AT BEDTIME FOR DEPRESSI ON MIRTAZAPINE TAKE ONE ORALLY SUSPEND 04/28/2023 [id number] SCHOLTZ,S [place] 30MG TAB TABLET ED 2 OPHIE L 2021 [place] BY MOUTH HCS AT BEDTIME FOR DEPRESSI ON MIRTAZAPINE TAKE ORALLY DISCONT 12/07/2022 [id number] ADALBERTO ELL, 12/06/ [place] 30MG TAB ONE-HALF INUED 2 KEYANA L 2021 E CB OC TABLET (EDIT) BY MOUTH AT BEDTIME FOR DEPRESSI ON MULTIVIT/OP TAKE 1 ORALLY ACTIVE SHADY,WH 02/18/ [place] HTH CAP/TAB ITNEY M 2021 E [facility] AREDS2/LUTE BY MOUTH IN/ZEAXANTH EVERY IN CAP/TAB DAY MULTIVITS TAKE ONE ORAL ACTIVE HOX,BRIGIDA 03/12/ S [place]ARK W/MINERALS TABLET A H 2013 M. TAB/CAP (NO BY MOUTH MATSU NA VIT K) DAILY [facility] NON VA MED USE ORALLY ACTIVE JUAN F, 01/30/ [place] NOT LISTED ACIDOPHI KEYANA L 2021 E [facility] CLARITA 1 CAPSULE MOUTH EVERY DAY NON VA MED USE ACTIVE HORACE HAJI 05/19/ [place] NOT LISTED FREESTYL DSEY R 2021 [place] VA MISCELLANEO E HCS US GLCUOCOM ETER AND TEST TSTRIPS PRN NYSTATIN APPLY TOPICA 06/04/2022 [id number] Yen NEELY 05/05/ [place] [id number] THIN LLY 2 OPHIE L 2021 OLIS V A M CREAM,TOP LAYER HCS TOPICALL Y TWICE A DAY NEEDED EVALUATOR AL USE ONLY FOR SKIN BREAKDOW N/YEAST RASH OCUVITE-use TAKE ONE ORAL ACTIVE HOX,BRIGIDA 03/12/ [place] I-KUNAL TAB BY A H 2013 M. PROTECT TAB MOUTH MATSUNA DAILY [facility] POLYETHYLEN TAKE 17 ORALLY HOLD 03/05/2023 [id number] ATKINS SCHM 03/04/ [place] E GLYCOL GRAMS BY 2 IDTNATALYA 2021 [place] 3350 MOUTH D HCS PWDR,ORAL EVERY DAY FOR CONSTIPA TION *MIX IN 4 TO 8 OUNCES OF LIQUID DIRECTED *USE COVER TO MEASURE POWDER* TAKE EVERY DAY. CAN TAKE 2ND DOSE IF NO BM FOR 24 HOURS. FOR CONSTIPA TION *MIX IN 4 TO 8 OUNCES OF LIQUID DIRECTED *USE COVER TO MEASURE POWDER* TAKE EVERY DAY. CAN TAKE 2ND DOSE IF NO BM FOR 24 HOURS. POLYETHYLEN TAKE 17 ORALLY DISCONT 11/30/2022 [id number] M ITCHELL, 11/30/ [place] E GLYCOL GRAMS BY INUED 2 KEYANA L 2021 E CB OC 3350 MOUTH (EDIT) PWDR,ORAL EVERY DAY NEEDED FOR CONSTIPA TION *MIX IN 4 TO 8 OUNCES OF LIQUID DIRECTED *USE COVER TO MEASURE POWDER* POLYVINYL INSTILL BOTH ACTIVE 02/11/2023 [id number] KOBVANESSA, JE 02/14/ [place] ALCOHOL 2 DROPS EYES 2 RRY L 2021 OL[place] VA 1.4% IN BOTH HCS SOLN,OPH EYES FOUR TIMES A DAY NEEDED FOR DRY EYES PREDNISONE TAKE ONE ORAL ACTIVE 11/11/2022 [id number] [facility],S SPARK 5MG TAB TABLET 2 USAN K 2021 M. BY MOUTH MATSUNA ONCE GA [facility] DAILY FOR INFLAMMA TION (TAKE WITH FOOD) PREDNISONE TAKE ONE ORALLY SUSPEND 05/06/2023 [id number] S CHOLTZ,S 05/05/ [place] 5MG TAB TABLET ED 2 OPHIE L 2021 [facility] BY MOUTH HCS EVERY MORNING WITH FOOD PREDNISONE TAKE ONE ORALLY DISCONT 04/28/2023 [id number] S CHOLTZ,S 05/05/ [place] 5MG TAB TABLET INUED 2 OPHIE L 2021 [place] BY MOUTH (EDIT) HCS EVERY DAY WITH FOOD PREDNISONE TAKE ONE ORALLY DISCONT 11/30/2022 [id number] M ITCHELL, 11/30/ [place] 5MG TAB TABLET INUED 2 KEYANA L 2021 E [facility] BY MOUTH (EDIT) EVERY DAY WITH FOOD Risperidone TAKE Discont 04/28/2023 [id number] SCHOLT Z, 05/28/ [place] (Risperdal ONE-HALF inued 2 MADHU L 2021 divya s M-Tab) TABLET [facility] Tablet BY MOUTH 0.5mg Oral AT BEDTIME Risperidone TAKE Discont 03/30/2023 [id number] WOODMA N, 05/04/ [place] (Risperdal ONE-HALF inued 2 CORAZON 2021 ol is M-Tab) TABLET L [facility] Tablet BY MOUTH 0.5mg Oral AT BEDTIME risperiDONE TAKE ONE Active 05/06/2023 [id number] SCHO LTZ, 05/28/ [place] (U/D) 0.25 TABLET 2 MADHU L 2021 olis MG ORAL TAB (0.25MG) [facility] BY MOUTH AT BEDTIME RISPERIDONE TAKE ONE ORALLY DISCONT 05/06/2023 [id number] SCHOLTZ,S 05/05/ [place] 0.25MG TAB TABLET INUED 2 OPHIE L 2021 OLIS V A (0.25MG) HCS BY MOUTH AT BEDTIME RISPERIDONE TAKE ORALLY DISCONT 04/28/2023 [id number] SCHOL TZ,S 05/05/ [place] 0.5MG TAB ONE-HALF INUED 2 OPHIE L 2021 [place] TABLET (EDIT) HCS BY MOUTH AT BEDTIME RISPERIDONE TAKE ORALLY DISCONT 03/30/2023 [id number] W Katya SALAZAR 07/07/ [place] 0.5MG TAB ONE-HALF INUED 2 ATHERINE 2021 E CB OC TABLET (EDIT) L BY MOUTH AT BEDTIME RISPERIDONE TAKE ORALLY DISCONT 01/18/2023 [id number] TAYLOR JAUREGUIC 01/18/ [place] 0.5MG TAB ONE-HALF INUED 2 ATHERINE 2021 E CB OC TABLET L BY MOUTH AT BEDTIME RISPERIDONE TAKE ORALLY ACTIVE 06/02/2023 [id number] CYRUS NC 06/06/ [place] 1MG/ML 0.375 MG 2 ATHERINE 2021 E [facility] SOLN,ORAL BY MOUTH L AT BEDTIME DOSE OF 0.375 MG=0.375 ML Senna TAKE TWO Active 03/05/2023 [id number] KLEINSCHM 03/18/ [place] (Senekot TABLETS 2 IDT, NATALYA 2021 olis Eq.) Tablet BY MOUTH D [facility] 8.6 mg Oral EVERY OTHER DAY AND TAKE THREE TABLETS TWICE A DAY NEEDED FOR CONSTIPA TION. STOP IF DIARRHEA OCCURS SENNOSIDES TAKE TWO ORALLY ACTIVE 05/24/2023 [id number] Jeanine WILSON, 05/25/ [place] 8.6MG TAB TABLETS 2 KEYANA L 2021 E CB OC BY MOUTH EVERY OTHER DAY AND TAKE THREE TABLETS TWICE A DAY NEEDED FOR CONSTIPA TION. STOP IF DIARRHEA OCCURS SENNOSIDES TAKE TWO ORALLY DISCONT 03/05/2023 [id number] K LEINSCHM 03/04/ [place] 8.6MG TAB TABLETS INUED 2 NATALYA GUERRERO 2021 [place] BY MOUTH D HCS EVERY OTHER DAY AND TAKE THREE TABLETS TWICE A DAY NEEDED FOR CONSTIPA TION. STOP IF DIARRHEA OCCURS SO-PEG TAKE 17 Active 03/05/2023 [id number] KLEINSCHM 03/18/ [place] 3350-BOWEL GRAMS BY 2 IDTNATALYA 2021 ol is 2,TWO PART MOUTH D [facility] PREP--PO SO EVERY DAY FOR CONSTIPA TION *MIX IN 4 TO 8 OUNCES OF LIQUID DIRECTED *USE COVER TO MEASURE POWDER* TAKE EVERY DAY. CAN TAKE 2ND DOSE IF NO BM FOR 24 HOURS. SO-PEG TAKE 17 Discont 11/30/2022 [id number] JUAN F, 03/18/ [place] 3350-BOWEL GRAMS BY inued 2 KEYANA L 2021 ol is 2,TWO PART MOUTH [facility] PREP--PO SO EVERY DAYAS NEEDED FOR CONSTIPA TION *MIX IN 4 TO 8 OUNCES OF LIQUID DIRECTED *USE COVER TO MEASURE POWDER* THIAMINE TAKE ONE ORALLY DISCONT 11/30/2022 [id number] PAULA RODY, 11/29/ [place] 100MG TAB TABLET INUED 2 KEYANA L 2021 E CBO C BY MOUTH EVERY DAY Thiamine TAKE ONE Discont 11/30/2022 [id number] MITCHE LL, 03/18/ [place] 100mg, TABLET inued 2 KEYANA L 2021 olis Tablet, BY MOUTH [facility] Oral EVERY DAY VITAMIN APPLY TOPICA ACTIVE 11/03/2022 [id number] FLETCHER-RUSSEL,S 0 11/02/ SPARK A/VITAMIN D SMALL LLY 2 USAN K 2021 M. OINT,TOP AMOUNT [place] TOPICALL [facility] Y THREE TIMES A DAY NEEDED TO BUTTOCK FOR PREVENT RASH VITAMIN E TAKE 1 ORAL ACTIVE BRIGIDA BRIZUELA 07/09/ [facility] RK 400UNT CAP CAPSULE A H 2014 M. BY MOUTH [place] DAILY GA [facility] Allergies, Adverse Reactions, Alerts Combined list of allergies from Department of Defense and Veterans Affairs facilities. It does not include entries that were removed or entered in error. Substance Category Reaction Severity Reaction Status Date Comments S ource type Reported ASPIRIN Propensity Finding Propensity active [place] to adverse of to adverse 3 ON [facility] reactions vomiting reactions MED ICAL to drug to drug CENTER (finding) (finding) ASPIRIN Propensity Dizziness Propensity active SPARK M. to adverse , Nausea to adverse 9 M ATSU[place]G reactions reactions A [facility] to drug to drug (finding) (finding) ASPIRIN Drug Nausea Drug active Triple r (ASPIRIN) allergy allergy 9 [facility], H I ASPIRIN Propensity Nausea Propensity active [place] RELATED to adverse to adverse 2 LI S [facility] MEDICATIONS reactions reactions HCS to drug to drug (finding) (finding) BETA Propensity NAUSEA,VO Propensity active [place] to adverse MITING to adverse 3 O N [facility] reactions reactions MEDI GUILLAUME to drug to drug CENTER (finding) (finding) DESMOPRESSIN Propensity Nausea Propensity active SPARK M. to adverse to adverse 9 MA TSUNAG reactions reactions A [facility] to drug to drug (finding) (finding) IBUPROFEN Drug Nausea Drug active [place] allergy and allergy 2 lis [facility] Vomiting, Swelling IBUPROFEN Propensity Nausea Propensity active [place] to adverse and to adverse 2 LI S [facility] reactions vomiting, reactions HC S to drug Swelling to drug (finding) (finding) MOTRIN Propensity Finding Propensity active [place] to adverse of to adverse 3 ON [facility] reactions vomiting reactions MED ICAL to drug to drug CENTER (finding) (finding) MOTRIN Propensity Swelling Propensity active SPARK M. to adverse to adverse 9 MA [place] reactions reactions A [facility] to drug to drug (finding) (finding) MOTRIN Drug Vomiting Drug active Tripl er (IBUPROFEN) allergy allergy 9 [facility], [place] SALICYLATES, Propensity Nausea Propensity active [place] ANTIRHEUMATI to adverse and to adverse 2 LIS [facility] C reactions vomiting reactions HCS to drug to drug (finding) (finding) Immunizations Combined list of available immunizations from the Department of Defense and Veterans Affairs facilities. Immunization Series Date Administered Site Reaction Lot CVX Drug St atus Comments Source Given By Number Code Crew Dispatcher ZOSTER 2 complet RICK OPE RECOMBINANT 2021 ed E [facility] COVID-19 2 complet [place] (MODERNA), 2021 ed DIVYA S [facility] MRNA, LNP-S, H CS PF, 100 MCG/0.5ML DOSE OR 50 MCG/0.25ML DOSE ZOSTER 1 complet SPAR K RECOMBINANT 2021 ed [facility] [facility] TDAP complet SPARK 2021 ed M[facility] COVID-19 1 complet MOD; SP ARK (MODERNA), 2021 ed [id number] M. MRNA, LNP-S, ; M ATSUNA PF, 100 [facility] MCG/0.5ML 2 DOSE OR 50 MCG/0.25ML DOSE PNEUMOCOCCAL complet SPARK POLYSACCHARID 2016 ed M. E PPV23 [facility] A [facility] INFLUENZA, complet SPARK SEASONAL, 2016 ed M. INJECTABLE, MA TSUNA PRESERVATIVE [facility] FREE INFLUENZA, complet SPARK UNSPECIFIED 2013 ed M. FORMULATION MA TSUNA [facility] INFLUENZA, complet SPARK UNSPECIFIED 2010 ed M. FORMULATION MA TSUNA [facility] INFLUENZA, complet SPARK UNSPECIFIED 2009 ed M. FORMULATION MA TSUNA [facility] NOVEL complet [employer] SP ARK INFLUENZA-H1N 2008 ed M. 1-09, ALL [facility] FORMULATIONS [facility] INFLUENZA, complet SPARK UNSPECIFIED 2008 ed M. FORMULATION MA TSUNA [facility] INFLUENZA, complet SPARK UNSPECIFIED 2007 ed M. 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 Order Results Value Reference Date Interpretation Specimen Commen ts Source Name Range ENTERIC CAMPYLOBAC NOT 05/28 Specimen Type : [place] PATHOGEN TER DETECTED No comment ent ered. CBOC PCR COLI+JEJUN Ordering Pro vider: KEYANA ROGEL PANEL I+UPSALIEN Report Relea sed Date/Time: Apr 03, 2022 12:12 PM SIS DNA Reporting Lab: [facility] [[facility]] [address] [facility] [address] IN STOOL Performing Lab : [facility] BY [place] [address] WITH NON-PROBE DETECTION ENTERIC CLOSTRIDIO NOT 05/28 Specimen Type : [place] PATHOGEN IDES DETECTED /2021 No comment ent ered. CBOC PCR DIFFICILE Ordering Prov ider: KEYANA ROGEL PANEL TOXIN A+B Report Releas ed Date/Time: Apr 03, 2022 12:12 PM TCDA+TCDB Reporting Lab : [facility] GENES [address] [facility] [address] [PRESENCE] Performing L ab: [facility] IN STOOL [address] [facility] [address] BY DONYA WITH NON-PROBE DETECTION ENTERIC PLESIOMONA NOT 05/28 Specimen Type : [place] PATHOGEN S DETECTED /2021 No comment ent ered. CBOC PCR SHIGELLOID Ordering Pro vider: KEYANA ROGEL PANEL ES DNA Report Released Date/Time: Apr 03, 2022 12:12 PM [PRESENCE] Reporting La b: [facility] IN STOOL [address] Shira [facility] [address] BY DONYA Performing Lab: [facility] WITH [place] [address] NON-PROBE DETECTION ENTERIC SALMONELLA NOT 05/28 Specimen Type : [place] PATHOGEN ENTERICA+B DETECTED /2021 No comment entered. CBOC PCR ONGORI DNA Ordering Pro vider: KEYANA ROGEL PANEL [PRESENCE] Report Relea sed Date/Time: Apr 03, 2022 12:12 PM IN STOOL Reporting Lab: [facility] BY DONYA [address] [facility] [address] WITH Performing Lab: [facility] NON-PROBE [address] [facility] [address] DETECTION ENTERIC VIBRIO NOT 05/28 Specimen Type: F ECES [place] PATHOGEN CHOLERAE+P DETECTED /2021 No comment entered. CBOC PCR ARAHAEMOLY Ordering Pro vider: KEYANA ROGEL PANEL TICUS+VULN Report Relea sed Date/Time: Apr 03, 2022 12:12 PM IFICUS DNA Reporting La b: [facility] [[facility]] [address] [facility] [address] IN STOOL Performing Lab : [facility] BY DONYA [address] [facility] [address] [facility] [address] WITH NON-PROBE DETECTION ENTERIC VIBRIO NOT 05/28 Specimen Type: F ECES [place] PATHOGEN CHOLERAE DETECTED /2021 No comment en tered. CBOC PCR DNA Ordering Provid er: KEYANA ROGEL PANEL [PRES[facility]] Report Relea sed Date/Time: Apr 03, 2022 12:12 PM IN STOOL Reporting Lab: [facility] BY DON[facility] [address] [facility] [address] WITH Performing Lab: [facility] NON-PROBE ONE [facility] [address] DETECTION ENTERIC YERSINIA NOT 05/28 Specimen Type: [place] PATHOGEN ENTEROCOLI DETECTED /2021 No comment entered. CBOC PCR REY DNA Ordering Provi miah: KEYANA ROGEL PANEL [PRES[facility]] Report Relea sed Date/Time: Apr 03, 2022 12:12 PM IN STOOL Reporting Lab: [facility] BY DONYA [address] [facility] [address] [facility] [address] WITH Performing Lab: [facility] NON-PROBE ONE [facility] [address] DETECTION ENTERIC ESCHERICHI NOT 05/28 Specimen Type : [place] PATHOGEN A COLI DETECTED /2021 No comment ent ered. CBOC PCR ENTEROAGGR Ordering Pro vider: KEYANA ROGEL PANEL EGATIVE Report Released Date/Time: Apr 03, 2022 12:12 PM JUSTUS Reporting Lab: [facility] PLASMID [address] [facility] [address] AGGR+AATA Performing La b: [facility] GENES [address] [facility] [address] [PRESENCE] IN STOOL BY DONYA WITH NON-PROBE DETECTION ENTERIC ESCHERICHI NOT 05/28 Specimen Type : F[place]ES [place] PATHOGEN A COLI DETECTED /2021 No comment ent ered. CBOC PCR ENTEROPATH Ordering Pro vider: KEYANA ROGEL PANEL OGENIC EAE Report Relea sed Date/Time: Apr 03, 2022 12:12 PM GENE Reporting Lab: [facility] [[facility]] ONE [facility] [address] IN STOOL Performing Lab : [facility] BY [facility] [address] [facility] [place] [address] WITH NON-PROBE DETECTION ENTERIC ESCHERICHI NOT 05/28 Specimen Type : [place]ES [place] PATHOGEN A COLI DETECTED /2021 No comment ent ered. CBOC PCR ENTEROTOXI Ordering Pro vider: KEYANA ROGEL L PANEL GENIC Report Released Date/Time: Apr 03, 2022 12:12 PM LTA+ST1A+S Reporting La b: [facility] T1B GENES [address] [facility] [address] [PRES[place]] Performing L ab: [facility] IN STOOL [address] [facility] [address] BY DONYA WITH NON-PROBE DETECTION ENTERIC SHIGELLA NOT 05/28 Specimen Type: [facility] PATHOGEN SPECIES+EI DETECTED /2021 No comment entered. CBOC PCR EC Ordering Provid er: KEYANA ROGEL L PANEL INVASION Report Release d Date/Time: Apr 03, 2022 12:12 PM PLASMID Reporting Lab: [facility] ANTIGEN H ONE [facility] [address] IPAH GENE Performing La b: [facility] [[facility]] ONE [facility] [address] IN STOOL BY DONYA WITH NON-PROBE DETECTION ENTERIC ESCHERICHI NOT 05/28 Specimen Type : [place]ES [place] PATHOGEN A COLI DETECTED /2021 No comment ent ered. CBOC PCR STX1 AND Ordering Provi miah: KEYANA ROGEL L PANEL STX2 TOXIN Report Relea sed Date/Time: Apr 03, 2022 12:12 PM STX1+STX2 Reporting Lab : [facility] GENES [address] [facility] [address] [PRESENCE] Performing L ab: [facility] IN STOOL [address] [facility] [address] BY DONYA WITH NON-PROBE DETECTION ENTERIC ESCHERICHI NOT 05/28 Specimen Type : F[place] PATHOGEN A COLI DETECTED /2021 No comment ent ered. CBOC PCR O157 DNA Ordering Provi miah: KEYANA ROGEL L PANEL [PRESENCE] Report Relea sed Date/Time: Apr 03, 2022 12:12 PM IN STOOL Reporting Lab: [facility] BY [facility] [address] [facility] [address] WITH Performing Lab: [facility] NON-PROBE ONE [facility] [address] DETECTION ENTERIC CRYPTOSPOR NOT 05/28 Specimen Type : [place] PATHOGEN IDIUM SP DETECTED /2021 No comment en tered. CBOC PCR DNA Ordering Provid er: KEYANA ROGEL L PANEL [PRES[facility]] Report Relea sed Date/Time: Apr 03, 2022 12:12 PM IN STOOL Reporting Lab: [facility] BY DONYA [address] [facility] [address] [facility] [address] WITH Performing Lab: [facility] NON-PROBE [facility] [address] DETECTION ENTERIC CYCLOSPORA NOT 05/28 Specimen Type : [place] PATHOGEN CAYETANENS DETECTED /2021 No comment entered. CBOC PCR IS DNA Ordering Provid er: KEYANA ROGEL PANEL [[facility]] Report Relea sed Date/Time: Apr 03, 2022 12:12 PM IN STOOL Reporting Lab: [facility] [place] [address] WITH Performing Lab: [facility] NON-PROBE [facility] [address] DETECTION ENTERIC ENTAMOEBA NOT 05/28 Specimen Type: F[place]ES [place] PATHOGEN HISTOLYTIC DETECTED /2021 No comment entered. CBOC PCR A DNA Ordering Provid er: KEYANA ROGEL PANEL [[facility]] Report Relea sed Date/Time: Apr 03, 2022 12:12 PM IN STOOL Reporting Lab: [facility] BY [facility] [address] [facility] [address] WITH Performing Lab: [facility] NON-PROBE [facility] [address] DETECTION ENTERIC GIARDIA NOT 05/28 Specimen Type: F ECES [place] PATHOGEN LAMBLIA DETECTED /2021 No comment ent ered. CBOC PCR DNA Ordering Provid er: KEYANA ROGEL PANEL [PRES[facility]] Report Relea sed Date/Time: Apr 03, 2022 12:12 PM IN STOOL Reporting Lab: [facility] BY [facility] [address] [facility] [address] WITH Performing Lab: [facility] NON-PROBE [facility] [address] DETECTION ENTERIC ADENOVIRUS NOT 05/28 Specimen Type : F[place]ES [place] PATHOGEN 40+41 DNA DETECTED /2021 No comment e ntered. CBOC PCR [PRESENCE] Ordering Pro vider: KEYANA ROGEL PANEL IN STOOL Report Release d Date/Time: Apr 03, 2022 12:12 PM BY DONYA Reporting Lab: [facility] WITH [address] [facility] [address] NON-PROBE Performing La b: [facility] DETECTION ONE [facility] [address] ENTERIC ASTROVIRUS NOT 05/28 Specimen Type : F[place] PATHOGEN SUBTYPES DETECTED /2021 No comment en tered. CBOC PCR 1-8 RNA Ordering Provid er: KEYANA ROGEL PANEL [PRES[facility]] Report Relea sed Date/Time: Apr 03, 2022 12:12 PM IN STOOL Reporting Lab: [facility] BY [facility] [place] [address] WITH Performing Lab: [facility] NON-PROBE [address] [facility] [address] DETECTION ENTERIC NOROVIRUS NOT 05/28 Specimen Type: [place] PATHOGEN GENOGROUP DETECTED /2021 No comment e ntered. CBOC PCR I+II RNA Ordering Provi miah: KEYANA ROGEL PANEL [PRES[facility]] Report Relea sed Date/Time: Apr 03, 2022 12:12 PM IN STOOL Reporting Lab: [facility] BY [facility] [address] [facility] [address] [facility] [address] WITH Performing Lab: [facility] NON-PROBE ONE [facility] [address] DETECTION ENTERIC ROTAVIRUS NOT 05/28 Specimen Type: F[place]ES [place] PATHOGEN A RNA DETECTED /2021 No comment ent ered. CBOC PCR [PRES[facility]] Ordering Pro vider: KEYANA ROGEL PANEL IN STOOL Report Release d Date/Time: Apr 03, 2022 12:12 PM BY DONYA Reporting Lab: [facility] WITH [place] [address] NON-PROBE Performing La b: [facility] DETECTION ONE [facility] [address] ENTERIC SAPOVIRUS NOT 05/28 Specimen Type: F[place]ES [place] PATHOGEN GENOGROUPS DETECTED /2021 No comment entered. CBOC PCR I+II+IV+V Ordering Prov ider: KEYANA ROGEL PANEL RNA Report Released Date/Time: Apr 03, 2022 12:12 PM [PRES[facility]] Reporting La b: [facility] IN STOOL [address] Shira ALBERTO [facility] [address] BY DONYA Performing Lab: [facility] WITH [place] [address] NON-PROBE DETECTION ENTERIC INTERPRETA No 05/28 Specimen Type : FECES [place] PATHOGEN TION AND pathogen /2021 No comment en tered. CBOC PCR REVIEW OF s Ordering Prov ider: KEYANA ROGEL PANEL LABORATORY detected Report Rele ased Date/Time: Apr 03, 2022 12:12 PM RESULTS Reporting Lab: [facility] [place] [address] Performing Lab: [facility] [place] [address] FINGERST GLUCOSE 314 70 - 100 05/04 H Specimen Type: BLOOD [place] ICK [MASS/VOLU /2021 Comment: Adelso e Result Nurse Notified IS [facility] GLUCOSE ME] IN Ordering Provid er: TEAM,[facility] FIVE CAPILLARY Report Releas ed Date/Time: May 04, 2022 06:45 AM BLOOD Reporting Lab: [facility] [place] [address] Performing Lab: [facility] [place] [address] BASIC CREATININE 0.9 0.5 - 1.0 05/02 Specimen Ty pe: PLASMA [place] METABOLI [MASS/VOLU /2021 Comment: Sp ecimen received in Lab at: [address] [facility] C ME] IN Ordering Provid er: GUS BALDERAS PANEL+MG SERUM OR Report Releas ed Date/Time: May 01, 2022 04:14 PM PLASMA Reporting Lab: [facility] [address] [facility] [address] Performing Lab: [facility] [address] [facility] [address] BASIC UREA 24 7 - 20 05/02 H Specimen Type: P LASMA [place] METABOLI NITROGEN /2021 Comment: Spec imen received in Lab at: [address] [facility] C [MASS/VOLU Ordering Pro vider: GUS BALDERAS PANEL+MG ME] IN Report Release d Date/Time: May 01, 2022 04:14 PM SERUM OR Reporting Lab: [facility] PLASMA [address] [facility] [address] Performing Lab: [facility] [address] [facility] [address] BASIC GLUCOSE 90 70 - 100 05/02 Specimen Type: PLASMA [place] METABOLI [MASS/VOLU /2021 Comment: Sp ecimen received in Lab at: [address] [facility] C ME] IN Ordering Provid er: GUS BALDERAS F PANEL+MG SERUM OR Report Releas ed Date/Time: May 01, 2022 04:14 PM PLASMA Reporting Lab: [facility] [place] [address] Performing Lab: [facility] [place] [address] BASIC SODIUM 139 136 - 145 05/02 Specimen Type: PLASMA [place] METABOLI [MOLES/VOL /2021 Comment: Caleb short received in Lab at: [address] [facility] C UME] IN Ordering Provid er: GUS BALDERAS PANEL+MG SERUM OR Report Releas ed Date/Time: May 01, 2022 04:14 PM PLASMA Reporting Lab: [facility] [place] [address] Performing Lab: [facility] [address] [facility] [address] BASIC POTASSIUM 3.3 3.5 - 5.1 05/02 L Specimen Typ e: PLASMA [place] METABOLI [MOLES/VOL /2021 Comment: Caleb short received in Lab at: [address] [facility] C UME] IN Ordering Provid er: GUS BALDERAS PANEL+MG SERUM OR Report Releas ed Date/Time: May 01, 2022 04:14 PM PLASMA Reporting Lab: [facility] [address] [facility] [address] Performing Lab: [facility] [address] [facility] [address] BASIC CHLORIDE 108 98 - 107 05/02 H Specimen Type: PLASMA [place] METABOLI [MOLES/VOL /2021 Comment: Caleb short received in Lab at: [address] [facility] C UME] IN Ordering Provid er: GUS BALDERAS PANEL+MG SERUM OR Report Releas ed Date/Time: May 01, 2022 04:14 PM PLASMA Reporting Lab: [facility] [address] [facility] [address] Performing Lab: [facility] [address] [facility] [address] BASIC CARBON 26 - 05/02 Specimen Type: P LASMA [place] METABOLI DIOXIDE, /2021 Comment: Juan Pablo huntley received in Lab at: [address] [facility] C TOTAL Ordering Provid er: GUS BALDERAS PANEL+MG [MOLES/VOL Report Rele ased Date/Time: May 01, 2022 04:14 PM UME] IN Reporting Lab: [facility] SERUM OR [facility] Shira AL[address]ERTO [facility] [address] PLASMA Performing Lab: [facility] [address] [facility] [address] BASIC CALCIUM 8.3 8.4 - 10.2 05/02 L Specimen Type : PLASMA [place] METABOLI [MASS/VOLU /2021 Comment: Sp ecimen received in Lab at: [address] [facility] C ME] IN Ordering Provid er: GUS BALDERAS F PANEL+MG SERUM OR Report Releas ed Date/Time: May 01, 2022 04:14 PM PLASMA Reporting Lab: [facility] [address] [facility] [address] Performing Lab: [facility] [address] [place] [address] BASIC MAGNESIUM 1.5 1.6 - 2.6 05/02 L Specimen Typ e: PLASMA [place] METABOLI [MASS/VOLU /2021 Comment: Sp ecimen received in Lab at: [address] [facility] C ME] IN Ordering Provid er: GUS BALDERAS PANEL+MG SERUM OR Report Releas ed Date/Time: May 01, 2022 04:14 PM PLASMA Reporting Lab: [facility] [address] [facility] [address] Performing Lab: [facility] [address] [facility] [address] BASIC ANION GAP 5 5 - 15 05/02 Specimen Type: PLASMA [place] METABOLI IN SERUM /2021 Comment: Spec imen received in Lab at: [address] [facility] C OR PLASMA Ordering Prov ider: GUS BALDERAS PANEL+MG Report Release d Date/Time: May 01, 2022 04:14 PM Reporting Lab: [facility] [address] [facility] [address] Performing Lab: [facility] [address] [facility] [address] BASIC GLOMERULAR 73 60 05/02 Specimen Type : PLASMA [place] METABOLI FILTRATION /2021 Comment: Sp ecimen received in Lab at: [address] IS [facility] C RATE/1.73 Ordering Prov ider: GUS BALDERAS F PANEL+MG SQ Report Release d Date/Time: May 01, 2022 04:14 PM MarilyPREDICTE Reporting La b: [facility] D [VOLUME [address] [facility] [address] RATE/AREA] Performing L ab: [facility] IN SERUM, [address] [facility] [address] PLASMA OR BLOOD BY CREATININE -BASED FORMULA (CKD-EPI) FINGERST GLUCOSE 131 70 - 100 08/18 H Specimen Type: BLOOD [place] ICK [MASS/VOLU /2021 No comment en tered. IS [facility] GLUCOSE ME] IN Ordering Provid er: MARGARETTE HONEYCUTT CAPILLARY Report Relemaegan ed Date/Time: Apr 21, 2022 08:21 PM BLOOD Reporting Lab: [facility] [place] [address] Performing Lab: [facility] [place] [address] FINGERST GLUCOSE 89 70 - 100 08/11 Specimen Type: BLOOD [place] ICK [MASS/VOLU /2021 Comment: Adelso e Result [facility] GLUCOSE ME] IN Ordering Provid er: MARGARETTE HONEYCUTT CAPILLARY Report Relemaegan ed Date/Time: Apr 14, 2022 06:16 PM BLOOD Reporting Lab: [facility] [place] [address] Performing Lab: [facility] [place] [address] FINGERST GLUCOSE 346 70 - 100 08/10 H Specimen Type: BLOOD [place] ICK [MASS/VOLU /2021 Comment: Adelso e Result Nurse Notified IS [facility] GLUCOSE ME] IN Ordering Provid er: MARGARETTE HONEYCUTT CAPILLARY Report Relemaegan ed Date/Time: Apr 13, 2022 01:00 PM BLOOD Reporting Lab: [facility] [address] [facility] [address] Performing Lab: [facility] [address] [facility] [address] FINGERST GLUCOSE 229 70 - 100 08/08 H Specimen Type: BLOOD [place] ICK [MASS/VOLU /2021 Comment: Adelso e Result Nurse Notified IS [facility] GLUCOSE ME] IN Ordering Provid er: MARGARETTE HONEYCUTT CAPILLARY Report Relemaegan ed Date/Time: Apr 12, 2022 12:25 AM BLOOD Reporting Lab: [facility] [address] [facility] [address] Performing Lab: [facility] [address] [facility] [address] FINGERST GLUCOSE 408 70 - 100 08/05 H Specimen Type: BLOOD [place] ICK [MASS/VOLU /2021 Comment: Adelso e Result Nurse Notified IS [facility] GLUCOSE ME] IN Ordering Provid er: MARGARETTE HONEYCUTT CAPILLARY Report Releas ed Date/Time: Apr 08, 2022 11:41 PM BLOOD Reporting Lab: [facility] [place] [address] Performing Lab: [facility] [place] [address] FINGERST GLUCOSE 488 70 - 100 08/05 H Specimen Type: BLOOD [place] ICK [MASS/VOLU /2021 Comment: Adelso e Result Nurse Notified IS [facility] GLUCOSE ME] IN Ordering Provid er: MARGARETTE HONEYCUTT CAPILLARY Report Releas ed Date/Time: Apr 08, 2022 10:05 PM BLOOD Reporting Lab: [facility] [address] [facility] [address] Performing Lab: [facility] [address] [facility] [address] C-PEPTID C PEPTIDE 0.46 0.80 - 08/05 L Specimen Type : SERUM [place] E [MASS/VOLU 3.85 /2021 Comment: Ignacia t Performed by [employer], [employer] [facility], [address] [place] [address] Edison Peoples M.D., Ph.D., Director of Laboratories , CLIA [id number] IS [facility] ME] IN Ordering Provid er: MARK HEBERT SERUM OR Report Release d Date/Time: Apr 07, 2022 12:56 PM PLASMA Reporting Lab: [facility] [address] [facility] [address] Performing Lab: [address] Vital Signs Combined list of inpatient and outpatient Vital Signs from Department of Defense and Veterans Affairs, ranging from 12 months to all on record, depending upon the facility. Vital Sign Value Date Comments Source SYSTOLIC BLOOD PRESSURE 05/05/2022 06:45:00 [facility] DIASTOLIC BLOOD PRESSURE 05/05/2022 06:45:00 [facility] PULSE OXIMETRY 05/05/2022 06:45:00 [place] [facility] PAIN 05/05/2022 06:45:00 [place] [facility] TEMPERATURE 05/05/2022 06:45:00 [place] [facility] PULSE 05/05/2022 06:45:00 [place] [facility] RESPIRATION 05/05/2022 06:45:00 [place] [facility] SYSTOLIC BLOOD PRESSURE 05/04/2022 07:34:56 [facility] DIASTOLIC BLOOD PRESSURE 05/04/2022 07:34:56 [facility] PULSE OXIMETRY 05/04/2022 07:34:56 [place] [facility] PA[facility] 05/04/2022 07:34:56 [place] [facility] TEMPERATURE 05/04/2022 07:34:56 [place] [facility] PULSE 05/04/2022 07:34:56 [facility] [facility] RESPIRATION 05/04/2022 07:34:56 [place] [facility] SYSTOLIC BLOOD PRESSURE 121 05/03/2022 11:53:13 [facility] DIASTOLIC BLOOD PRESSURE 73 05/03/2022 11:53:13 [facility] PULSE OXIMETRY 95% 05/03/2022 11:53:13 [facility] TEMPERATURE 97.9 05/03/2022 11:53:13 [facility] PULSE 72 05/03/2022 11:53:13 [facility] RESPIRATION 16 05/03/2022 11:53:13 [facility] SYSTOLIC BLOOD PRESSURE 154 05/02/2022 07:31:00 [facility] DIASTOLIC BLOOD PRESSURE 79 05/02/2022 07:31:00 [facility] PULSE OXIMETRY 94% 05/02/2022 07:31:00 [facility] PAIN 0 05/02/2022 07:31:00 [facility] TEMPERATURE 97.8 05/02/2022 07:31:00 [facility] PULSE 71 05/02/2022 07:31:00 [facility] RESPIRATION 16 05/02/2022 07:31:00 [facility] SYSTOLIC BLOOD PRESSURE 136 05/01/2022 06:56:00 [facility] DIASTOLIC BLOOD PRESSURE 84 05/01/2022 06:56:00 [facility] PULSE OXIMETRY 96% 05/01/2022 06:56:00 [facility] PAIN 0 05/01/2022 06:56:00 [facility] TEMPERATURE 98.2 05/01/2022 06:56:00 [facility] PULSE 69 05/01/2022 06:56:00 [facility] RESPIRATION 18 05/01/2022 06:56:00 [facility] Encounters Combined list of: 1) Encounters from [facility] facilities going back up to the last 18 months. 2) Encounters from the Department of Defense facilities going back up to 280 months. Location Location Encounter Encounter Reason Attending ADM DC Stat us Disposition Source Details Type Number For Provider Date Date Visit OUTPATIENT [id number] [facility] 10/14 Relea sed w/o [facility], , [place] Limitations [facility]) OUTPATIENT [id number] [facility] 10/15 Releas ed w/o [facility], , [place] K [facility]itations [facility]) OUTPATIENT [id number] brain [place], 03/13 Releas ed w/o [facility], [facility] OUTPATIENT [id number] [facility], 03/17 Releas ed w/o [facility], ANTONY G [facility] OUTPATIENT [id number] shoulde [facility] 05/01 Rel eased w/o [facility], r N, SOPHIE P [facility] OUTPATIENT [id number] [facility]08/15 Relea sed w/o [facility], N, [place] P [facility] OUTPATIENT [id number] [facility], 09/25 Release d w/o [facility], EVANGELISTA W Limitations [facility]isha [facility] Rm) OUTPATIENT [id number] [facility]02/04 Rel eased w/o [facility], ma N, S[place] P [facility] [place]IENT [id number] [place]05/06 Relea sed w/o [facility], REF # N, SOPHIE P Limitations [place]( [facility]) OUTPATIENT [id number] ankle KERA, 06/28 Released w/o [facility], support Limitations [place] ([facility]) ER, DIRECT [id number] IVIS, 11/14 11/14 LEFT AGAINST [place] TO 3 DIA C [facility] [place] [place] ADVICE MTF OUTPATIENT [id number] HESHAM, 11/16 Admitted [facility], SUHAIL [place](Razia gency Rm) ER, DIRECT CDR-[id number] CHIARA, 07/18 07/25 DISCHARGED [place] TO 1 EDUARDO T [facility] [place] MTF OUTPATIENT [id number] ADELAIDA, 07/19 Admitted [facility], CURTIS [place](Razia gency Rm) OUTPATIENT [id number] Initial CHARMAINE, 07/22 Release d w/o [facility], Inpt. SUKHWINDER J Limitations [place]([facility]) OUTPATIENT [id number] Carotid AYUBI, 07/22 Release d w/o [facility], Duplex. Limitations [place] [facility] Proced[facility] re [facility]) OUTPATIENT [id number] ADELAIDA, 07/26 Released w/o [facility], CURTIS Limitations [place](Anisha r gency Rm) OUTPATIENT [id number] CHRISTINAO, 09/29 Released w /o [facility], DIPIKA T Limitations [place](Anisha r gency Rm) OUTPATIENT [id number] Conduct MICHAEL, 11/09 Released w/o [facility], kalie Limitations [place](E ar Hearing K. Nose & Loss, Throat Bilater Clinic) al(ICD- 10-CM H90.0) TELE [id number] Notes MICHAEL, 11/20 [facility], CONSULT Entered HI(Ear by: Luiza Palacio,NA Throat THANIEL Clinic) K. 20 Nov 2017 1254 ------- ------- ------- ------- -- T-con june n ER, DIRECT [id number] [facility], [facility] 05/07 DISCHA RGED [place] TO 8 [facility] [place]TF OUTPATIENT [id number] DOMINIK, 05/06 Admitte d [facility], 4 GEO R [place](Razia gency Rm) INPATIENT [id number] Notes DILSHAD, 05/07 Inpatient- [facility], 2 Entered Still a HI(Ear by: FARA Patient Nose & MANJU,SI Throat LAS 02 Clinic) May [id number] ------- ------- ------- ------- -- History of chondro id Chordom a with nasopha ryngeal lesion INPATIENT [id number] DILSHAD, 05/07 Inpatient- [facility], 0 AVNI Still a HI(Head [facility] Patient [facility] Neck [facility]) OUTPATIENT [id number] Benign DILSHAD, 05/19 Released w/o [facility], 3 neoplas AVNI Limitations [place](Hea d m of FARA And nasopha Neck rynx(IC Clinic) D-10-CM D10.6) Outpatient 97264-5.45 12/15 SPAR K Encounter [id number] /2021 [facility] 12/17 SPAR K Encounter [id number] /2021 [facility] Outpatient 74069-412/17 SPAR K Encounter [id number] Marily [facility] HC PRO Diagnos DENISSE ORNELAS 12/24 [place] PHONE CALL [phone] is: M. 5-10 MIN ICD-10- [facility] Z51.81 Encount er for therape utic drug level monitor ing<br/ >with Provide r Comment s: Encount er for Therape utic Drug Level Monitor ing Outpatient 01/04 SPAR K Encounter [id number] /2021 [facility] Outpatient 01/28 SPAR K Encounter [id number] /2021 Mar[facility] Outpatient Diagnos CHANCE-RUSSEL,PENG 02/10 SPARK Encounter [id number] is: ACOSTA K M. ICD-10- [facility]I [facility] E03.9 Hypothy roidism , unspeci fied
with Provide r Comment s: Hypothy roidism (SCT [id number] 8) Outpatient 45 02/18 SPAR K Encounter [id number] [facility]ine. [facility] Out[facility] 02/19 SPAR K Encounter [id number] [facility]ily [facility] Outpatient 24553-3.45 02/22 SPAR K Encounter [id number] Marily [facility] HC PRO Diagnos MAUGA-JR, 03/01 [place] PHONE CALL [id number] is: FAADENA M. 5-10 MIN ICD-10- [facility] Z71.89 Other specifi ed certified substance abuse counselor ing<br/ >with Provide r Comment s: Other specifi ed Port Cdl A Driver ing Outpatient Diagnos FLETCHER-RUSSEL,PENG 03/02 SPARK Encounter [id number] is: ACOSTA M. ICD-10- [facility] R[facility] Syncope and collaps e
w ith Provide r Comment s: Syncope and collaps e Outpatient 03/02 SPAR K Encounter [id number] [facility] Outpatient 30156-203/09 SPAR K Encounter [id number] [facility] Outpatient Diagnos FLETCHER-RUSSEL,PENG 03/10 SPARK Encounter [id number] is: ACOSTA M. 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 Outpatient 61581-503/22 SPAR K Encounter [id number] [facility] Outpatient 64390-345 03/25 SPAR K Encounter [id number] . [facility] HC PRO TESS RAGLAND 03/29 [place] PHONE CALL [id number] M. 11-20 MIN [facility] Outpatient 74190-745 04/01 SPAR K Encounter [id number] [facility] Outpatient 90897-204/09 SPAR K Encounter [id number] [facility] Outpatient 94819-4.45 Diagnos FLETCHER-RUSSEL,PENG 04/16 SPARK Encounter [id number] is: ACOSTA M. ICD-10- [facility] R04.0 Epistax is
with Provide r Comment s: Epistax is Outpatient 64615-1.45 04/26 SPAR K Encounter [id number] Marily [facility] Outpatient 07105-7.45 04/28 SPAR K Encounter [id number] Marily NESS [facility] Outpatient 42293-4.45 04/29 SPAR K Encounter [id number] Marily [facility]ESS [facility] Outpatient 74510-6..1 08/17 PALI Encounter [id number] /2020 [facility] Outpatient 13567-9.45 08/17 SPAR K Encounter [id number] Marily NESS [facility] Outpatient 47561-3.45 09/27 SPAR K Encounter [id number] Marily NESS [facility] Outpatient 92618-2.45 09/30 SPAR K Encounter [id number] Marily NESS [facility] Outpatient 79858-3.45 09/30 SPAR K Encounter [id number] /2022 Marily NESS [facility] Outpatient 07517-1.45 09/30 SPAR K Encounter [id number] [facility]ily [facility] Outpatient 57750-5.45 Diagnos DANISH PAGAN 10/05 SPARK Encounter [id number] is: ACOSTA Marily ICD-10- [facility] 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.0 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< br/>wit h Provide r Comment s: 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 Outpatient 84988-1.45 10/07 SPAR K Encounter [id number] Marily [facility]ESS [facility] Outpatient 02018-4.45 10/08 SPAR K Encounter [id number] Marily [facility] Outpatient 77994-4.45 10/08 SPAR K Encounter [id number] Marily [facility] Outpatient 34445-7.45 10/12 SPAR K Encounter [id number] Marily [facility] Outpatient 50805-3.61 10/14 [place] Encounter [id number] [facility] Outpatient 62514-6.45 10/14 SPAR K Encounter [id number] Marily NESS [facility] Outpatient 72620-6.45 10/14 SPAR K Encounter [id number] Marily NESS [facility] OFFICE O/P 66916-3.45 Diagnos FLETCHER-RUSSEL,PENG 10/14 [place] EST [place] [id number] is: ACOSTA K M. 40-54 MIN ICD-10- [facility] E11.8 Type 2 diabete s mellitu s with unspeci fied complic ations< br/>wit h Provide r Comment s: Diabete s mellitu s (SCT [id number] 9) Outpatient 47956-8.45 10/14 SPAR K Encounter [id number] Marily [facility]ESS [facility] Outpatient 79420-2.45 10/14 SPAR K Encounter [id number] Marily [facility] Outpatient 49657-3.45 10/14 SPAR K Encounter [id number] Marily [facility] Outpatient 97792-7.45 10/14 SPAR K Encounter [id number] /2022 Marily [facility] Outpatient 81492-4.45 10/15 SPAR K Encounter [id number] /2022 Marily [facility] Outpatient 12028-8.45 10/15 SPAR K Encounter [id number] /2022 Marily [facility] Outpatient 26395-5.45 10/15 SPAR K Encounter [id number] /2022 Marily [facility] Outpatient 98238-2.45 10/18 SPAR K Encounter [id number] /2022 Marily [facility] Outpatient 19575-8.45 10/19 SPAR K Encounter [id number] /2022 Marily [facility] Outpatient 07088-7.61 10/20 [place] Encounter [id number] [facility] Outpatient 06325-1.45 10/20 SPAR K Encounter [id number] Marily [facility]ESS [facility] Outpatient 48025-3.45 10/20 SPAR K Encounter [id number] Jeanine. THI [facility] Outpatient 83592-1.61 10/21 [place] Encounter [id number] [facility] Outpatient 78995-2.45 10/21 SPAR K Encounter [id number] Jeanine. THI [facility] Outpatient 26188-4.45 10/21 SPAR K Encounter [id number] Jeanine. THI [facility] Outpatient 08848-7.61 10/22 [place] Encounter [id number] [facility] Outpatient 93224-3.45 10/22 SPAR K Encounter [id number] Jeanine. THI [facility] Outpatient 75084-7.45 10/26 SPAR K Encounter [id number] Jeanine. THI [facility] HC PRO 86861-3.45 Diagnos PARUBRUB-K 10/26 [place] PHONE CALL [id number] is: CRISTHIAN, M. 11-20 MIN ICD-10- CECI H [facility]S [place] [facility] Z71.89 Other specifi ed certified substance abuse counselor ing<br/ >with Provide r Comment s: Other specifi ed Port Cdl A Driver ing EYE 50697-0.45 Diagnos Rudy GONZALEZ 10/27 SP ARK EXAM&TX [id number] is: MISAEL Solorzano P M. ESTAB PT ICD-10- MATSUNA 1/>VST CM [facility] E11.9 Type 2 diabete s mellitu s without complic ations< br/>wit h Provide r Comment s: DM Type 2 w/o Complic ations Outpatient 53041-9.45 10/28 SPAR K Encounter [id number] Jeanine. THI [facility] Outpatient 23731-6.45 10/28 SPAR K Encounter [id number] Jeanine. THI [facility] Outpatient 46485-6.45 10/28 SPAR K Encounter [id number] Marily NESS [facility] HC PRO 52150-0.45 Diagnos PARUBRUB-K 10/28 [place] PHONE CALL [phone] is: CRISTHIAN, M. 5-10 MIN ICD-10- CECI H MATSU NA CM [facility] Z71.89 Other specifi ed certified substance abuse counselor ing<br/ >with Provide r Comment s: Other specifi ed Port Cdl A Driver ing Outpatient 63257-3.45 Diagnos FLETCHER-RUSSEL,PENG 10/29 SPARK Encounter [id number] is: ACOSTA K M. ICD-10- [place] CM [facility] E11.8 Type 2 diabete s mellitu s with unspeci fied complic ations< br/>wit h Provide r Comment s: Diabete s mellitu s ([facility] [id number] 9) OFFICE O/P 36127-0.45 Diagnos QAWALANGIN, 11/01 [place] [id number] is: MARIO A M. 60-74 MIN ICD-10- MAT[place]NA CM [facility] E11.8 Type 2 diabete s mellitu s with unspeci fied complic ations< br/>wit h Provide r Comment s: Diabete s mellitu s ([facility] 2902363 9) Outpatient 87754-0.45 11/01 SPAR K Encounter [id number] /2022 M. THI [facility] OFFICE O/P 25779-4. Diagnos ASHLEY,TYREE 11/01 SPARK EST [id number] is: DARLIN FERNANDEZ S M. MINIMAL ICD-10- [facility] PROB CM [facility] Z71.89 Other specifi ed certified substance abuse counselor ing<br/ >with Provide r Comment s: Port Cdl A Driver ing,Oth er Specifi ed Outpatient 76833-3.45 11/01 SPAR K Encounter [id number] M. THI [facility] Outpatient 99435-7.45 11/01 SPAR K Encounter [id number] M. THI [facility] Outpatient 70948-1.61 11/02 [place] Encounter [id number] [facility] OFFICE O/P 94851-5.45 Diagnos FLETCHER-RUSSEL,PENG 11/02 SPARK EST MOD [id number] is: ACOSTA K M. 30-39 MIN ICD-10- MAT[place] CM [facility] E87.1 Hypo-os molalit y and hyponat remia<b r/>with Provide r Comment s: Hypo-Os molalit y and Hyponat remia ADM 95157-0.45 Diagnos JENNA, 11/02 SP ARK SARSCOV2 [id number] is: DANIA A M. 100MCG/0.5 ICD-10- [facility] ML1ST CM Z23 [facility] Encount er for immuniz ation<b r/>with Provide r Comment s: Encount er for Immuniz ation OFFICE O/P 46270-9.45 Diagnos CHANCE-RUSSEL,PENG 11/02 [place] EST [id number] is: ACOSTA K M. MINIMAL ICD-10- [facility] PROB CM [facility] E11.8 Type 2 diabete s mellitu s with unspeci fied complic ations< br/>wit h Provide r Comment s: Diabete s mellitu s (SCT 7544793 9) Outpatient 14147-2.45 11/02 SPAR K Encounter [id number] M. [place]Y [facility] Outpatient 74188-2.45 11/03 SPAR K Encounter [id number] M. THI [facility] Outpatient 05628-1.45 11/04 SPAR K Encounter [id number] M. [place]OL[place]Y [facility] OFFICE O/P 86627-5.45 Diagnos EMILE-JR, 11/04 SPARK EST [id number] is: RAFIA T M. MINIMAL ICD-10- [facility] PROB CM [facility] Z71.89 Other specifi ed certified substance abuse counselor ing<br/ >with Provide r Comment s: Port Cdl A Driver ing,Oth er Specifi ed Outpatient 60124-6.45 URI GRAHAM 11/04 SPARK Encounter [id number] A M. THI [facility] HC PRO 35528-2.45 Diagnos PARUBRUB-K 11/05 [place] PHONE CALL [id number] is: CRISTHIAN, M. 5-10 MIN ICD-10- CECI H MATSU NA CM [facility] Z71.89 Other specifi ed certified substance abuse counselor ing<br/ >with Provide r Comment s: Other specifi ed Port Cdl A Driver ing Outpatient 35800-4.61 11/08 [place] Encounter [id number] /2022 [facility] Outpatient 40615-4.45 11/08 SPAR K Encounter [id number] /2021 M. THI [facility] HLTH BHV 60061-8.45 Diagnos YOVANY WARD 11/09 [facility] IV[facility]J FAM [id number] is: H M. W/O PT EA ICD-10- [place] CM [facility] F32.A Depress ion, unspeci fied
with Provide r Comment s: Depress ion, unspeci fied PT EVAL 23520-4.45 Diagnos MATAHUM,GE 11/10 [facility] LOW 9.50796754 is: RLIE D /2021 M. COMPLEX 20 ICD-10- [facility] MIN CM [facility] R26.2 Difficu lty in walking , not elsewhe re classif ied<br/ >with Provide r Comment s: Difficu lty in Walking , not elsewhe re classif ied OFFICE O/P 07014-1 Diagnos PARUBRUB-K 11/10 [facility] EST [id number] is: CRISTHIAN, /2021 M. MINIMAL ICD-10- CECI H MATSUN A PROB CM [facility] Z71.89 Other specifi ed certified substance abuse counselor ing<br/ >with Provide r Comment s: Port Cdl A Driver ing,Oth er Specifi ed TELEHEALTH 02385-9.45 Diagnos NA'ArsalanFAITA 11/10 [facility] [id number] is: HUGH U /2021 M. FEE ICD-10- [place] CM [facility] Z71.89 Other specifi ed certified substance abuse counselor ing<br/ >with Provide r Comment s: Other specifi ed Port Cdl A Driver ing Outpatient 09305-7.45 11/10 SPAR K Encounter [id number] . [facility] SELF-MGMT 36450-4.66 Diagnos STIVEN,BE 11/10 ACOSTA EDUC & [id number] is: THANY YARA TRAIN 1 PT ICD-10- [facility] CM H90.3 Sensori neural hearing loss, bilater al
with Provide r Comment s: Sensori neural Hearing Loss, Bilater al Outpatient 16212-3.45 11/10 SPAR K Encounter [id number] /2021 M. THI [facility] Outpatient 85913-8.45 QAWALANGIN,CH 11/11 SPARK Encounter [id number] MARIO A /2021 Jeanine. THI [facility] Outpatient 67402-2.45 11/12 SPAR K Encounter [id number] /2022 Marily NESS [facility] OFFICE O/P 84088-4.45 Diagnos PARUBRUB-K 11/12 SPARK EST [id number] is: CRISTHIAN, /2021 M. MINIMAL ICD-10- CECI H MATSUN A PROB CM [facility] Z71.89 Other specifi ed certified substance abuse counselor ing<br/ >with Provide r Comment s: Port Cdl A Driver ing,Oth er Specifi ed Outpatient 27994-3.45 11/12 SPAR K Encounter [id number] /2022 Marily NESS [facility] Outpatient 12893-8.45 11/13 SPAR K Encounter [id number] /2021 Marily [facility] Outpatient 00616-3.45 11/15 SPAR K Encounter [id number] /2022 Jeanine. THI [facility] Outpatient 29786-4.45 11/16 SPAR K Encounter [id number] /2022 Marily NESS [facility] OFFICE O/P 27436-1.45 Diagnos JOHN,MARITZA 11/17 SPARK EST [id number] is: THERON N /2021 M. MINIMAL ICD-10- [facility] PROB CM [facility] E11.8 Type 2 diabete s mellitu s with unspeci fied complic ations< br/>wit h Provide r Comment s: Diabete s mellitu s (SCT [id number] 9) Outpatient 08917-1.45 11/17 SPAR K Encounter [id number] /2021 Jeanine. THI [facility] Outpatient 64325-3.61 11/18 [place] Encounter [id number] /2021 [facility] Out[facility] 27097-8.61 11/18 [place] Encounter [id number] /2021 [place] [facility] [place] [address]-2.45 Diagnos SABA,COU 11/18 SPARK DIG 9.56744349 is: HAYES H /2021 M. ASSMT&MGMT ICD-10- [facility] 21+ CM [facility] E11.8 Type 2 diabete s mellitu s with unspeci fied complic ations< br/>wit h Provide r Comment s: Diabete s mellitu s (SCT [id number] 9) Outpatient 08394-8.45 11/19 SPAR K Encounter [id number] M. THI [facility] HC PRO 44359-1.45 Diagnos ELLYN,TESS 11/22 [place] PHONE CALL [id number] is: K M. 5-10 MIN ICD-10- [place] CM [facility] Z71.89 Other specifi ed certified substance abuse counselor ing<br/ >with Provide r Comment s: Other specifi ed Port Cdl A Driver ing HC PRO 10716-6 Diagnos PARUBRUB-K 11/22 [place] PHONE CALL [id number] is: CRISTHIAN, M. 11-20 MIN ICD-10- CECI H MATS [place] CM [facility] Z71.89 Other specifi ed certified substance abuse counselor ing<br/ >with Provide r Comment s: Other specifi ed Port Cdl A Driver ing Outpatient 29338-0.45 11/22 SPAR K Encounter [id number] /2021 M. THI [facility] Outpatient 57828-8.61 11/23 [place] Encounter [id number] /2022 [facility] Outpatient 97176-2.45 11/23 SPAR K Encounter [id number] /2021 M. THI [facility] Outpatient 05341-8.61 11/23 [place] Encounter [id number] /2021 [facility] OFFICE O/P 84625-3.45 Diagnos FLETCHER-RUSSEL,PENG 11/23 SPARK EST MOD [id number] is: ACOSTA K M. 30-39 MIN ICD-10- MATSUNA CM I10 [facility] Essenti al (primar y) hyperte nsion<b r/>with Provide r Comment s: Hyperte nsion (SCT [id number] 3) OFFICE O/P 21991-6.45 Diagnos ELLYN,TESS 11/23 [place]ARK EST [id number] is: K M. MINIMAL ICD-10- [facility] PROB CM Z23 [facility] Encount er for immuniz ation<b r/>with Provide r Comment s: Encount er for Immuniz ation OFFICE O/P 42267-4.45 Diagnos [facility] 11/23 [place]ARK EST [place] [id number] is: MARIO M. 40-54 MIN ICD-10- MAT[place]NA CM [facility] E11.9 Type 2 diabete s mellitu s without complic ations< br/>wit h Provide r Comment s: Type 2 Diabete s Mellitu s without Complic ations HC PRO 03853-245 Diagnos SHADIATUE 11/23 SP ARK PHONE CALL [phone] is: SALCEDO T M. 21-30 MIN ICD-10- [place] CM [facility] Z71.0 Prsn encntr hlth serv to consult on behalf of another person< br/>wit h Provide r Comment s: Person [facility], [facility] s to Consult on Behalf of another Person Outpatient 11/23 SPAR K Encounter [id number] /2022 Marily NESS [facility] Outpatient 65200-411/25 SPAR K Encounter [id number] /2021 Marily GUEVARAROCKY [facility] Outpatient 73766-5 SONIA GUARDADO 11/25 [place] Encounter [id number] Y C [facility] Outpatient 50519-0.61 11/29 [place] Encounter [id number] /2021 [facility] OFFICE O/P 77987-8 Diagnos REMXANDER ROQUEE 11/29 [place] EST [id number] is: E J /2021 E [facility] MINIMAL 68 ICD-10- PROB CM E11.8 Type 2 diabete s mellitu s with unspeci fied complic ations< br/>wit h Provide r Comment s: Type 2 diabete s mellitu s (SCT [id number] 6) Outpatient 91413-4. [facility] 11/29 [place] [id number] [facility] Marily G[facility] OFFICE O/P 64921-8.61 Diagnos JUAN F,R 11/29 [place] [facility] [id number] is: EBECCA L E CBO C 60-74 MIN 15 ICD-10- CM Z00.8 Encount er for other general examina tion
with Provide r Comment s: Encount er for other General Examina tion Outpatient 03500-8.61 11/30 [place] Encounter [id number] [facility] Outpatient 98849-9.61 11/30 [place] Encounter [id number] [facility] Outpatient 52386-1.61 11/30 [place] Encounter [id number] [facility] OFFICE O/P 42851-4.61 Diagnos CHANCE CHAVARRIA L 11/30 [place] EST MOD [id number] is: /2021 [facility] 30-39 MIN ICD-10- HCS CM E11.8 Type 2 diabete s mellitu s with unspeci fied complic ations< br/>wit h Provide r Comment s: Type 2 diabete s mellitu s ([facility] [id number] 6) Outpatient 77377-0.61 11/30 [place] Encounter [id number] [facility] Outpatient 43914-1.61 Diagnos ABNER SONU 11/30 [place] Encounter [id number] is: HEATH WILSON [facility] ICD-10- HCS CM E11.8 Type 2 diabete s mellitu s with unspeci fied complic ations< br/>wit h Provide r Comment s: Type 2 diabete s mellitu s ([facility] [id number] 6) PRO 45234-3.45 Diagnos ELIZABETHA,DURAN 11/30 [place] PHONE CALL [phone] is: MYRA M M. 5-10 MIN ICD-10- [place] CM [facility] Z76.89 Persons encount ering health service s in oth circums tances< br/>wit h Provide r Comment s: Persons Encount ering Health Service s in other specifi ed Circums tances Outpatient [id number] 12/01 [place] Encounter [id number] [facility] TARGETED 57371-7.61 NAI CLAIRE 12/01 [place] CASE [id number] VINICIO A /2021 [facility] HCS Outpatient 59557-0.61 12/02 [place] Encounter [id number] /2021 [facility] HC PRO 27111-9.45 Diagnos DURAN ALFARO 12/02 [place] PHONE CALL [phone] is: MYRA M. 11-20 MIN ICD-10- [place] CM [facility] Z76.89 Persons encount ering health service s in oth circums tances< br/>wit h Provide r Comment s: Persons Encount ering Health Service s in other specifi ed Circums tances HC PRO 70861-6.61 Diagnos DAMIENBEKA 12/02 [place] PHONE CALL [phone] is: SE [place] 5-10 MIN ICD-10- HCS CM Z65.8 Oth problem s related to psychos ocial circums tances< br/>wit h Provide r Comment s: Other specifi ed Problem s Related to Psychos ocial Circums tances Outpatient 50761-3.61 12/03 [place] Encounter [id number] /2021 [facility] Outpatient 14605-5.45 12/07 SPAR K Encounter [id number] /2021 [facility] 63620-0.61 12/08 [place] Encounter [id number] /2021 [facility] Outpatient 60783-0.45 12/08 SPAR K Encounter [id number] /2021 JeanineNat NESS [facility] Outpatient 48068-6.45 12/08 SP[place] K Encounter [id number] /2021 Marily THI [facility] OFFICE 35390-2.61 Diagnos HAYLIEANN,K 12/08 [place] CONSULTATI [id number] is: IMBERLY S [facility] ON ICD-10- HCS CM I63.9 Cerebra l infarct ion, unspeci fied
with Provide r Comment s: Cerebra l Infarct ion, unspeci fied HC PRO 00771-7.61 Diagnos BEKA QUEZADA 12/09 [place] PHONE CALL [phone] is: SE [place] 5-10 MIN ICD-10- HCS CM Z65.8 Oth problem s related to psychos ocial circums tances< br/>wit h Provide r Comment s: Oth problem s related to psychos ocial circums tances Outpatient 39031-4.61 12/09 [place] Encounter [id number] /2022 [facility] Outpatient 15202-5.61 12/13 [place] Encounter [id number] [facility] Outpatient 28541-0.61 12/13 [place] Encounter [id number] [facility] Outpatient 47714-1.61 SEPIDEH ORDOÑEZ 12/13 [place] Encounter [id number] JARQUIN [facility] Outpatient 86277-0.45 12/14 SP[place] K Encounter [id number] /2022 [place] [facility] Outpatient 26897-0.61 12/14 [place] Encounter [id number] /2022 [facility] HC PRO [id number] Diagnos BEKA QUEZADA 12/15 [place] PHONE CALL [phone] is: SE A [facility] 5-10 MIN ICD-10- HCS CM Z65.8 Oth problem s related to psychos ocial circums tances< br/>wit h Provide r Comment s: Oth problem s related to psychos ocial circums tances Outpatient 71006-3.61 12/15 [place] Encounter [id number] [facility] OFFICE 03849-2.61 Diagnos [place] RIVERA 12/16 [place] CONSULTATI [id number] is: H L [facility] ON ICD-10- HCS CM G46.4 Cerebel lar stroke syndrom e
w ith Provide r Comment s: Stroke (SCT 6380088 07) Outpatient 64324-2.61 RICH TOTH 12/16 [place] Encounter [id number] NI [facility] Outpatient 11867-8.61 12/16 [place] Encounter [id number] [facility] SELF CARE 09235-3 Diagnos JOSEMANUEL LARA 12/16 [place] MNGMENT [id number] is: [facility] [place] TRA[facility] ICD-10- HCS CM R26.89 Other abnorma lities of gait and mobilit y
w ith Provide r Comment s: Other Abnorma lities of Gait and Mobilit y Outpatient 72911-1.61 12/16 [place] Encounter [id number] [facility] Outpatient 67259-7.61 12/16 [place] En[place] [id number] [facility] 74795-6.61 12/16 [place] Encounter [id number] /2021 [facility] Outpatient 09832-3.61 12/17 [place] Encounter [id number] [facility] Outpatient 65103-6.61 12/17 [place] Encounter [id number] /2021 [facility] CASE 96081-6.61 FARHAN FLORES 12/17 [place] MANAGEMENT [id number] N [facility] OFFICE 62074-6.61 Diagnos Mack SOLIZ 12/17 [place] CONSULTAT[place] [id number] is: JASKARAN DIVYA S [place] ON ICD-10- HCS CM 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
w ith Provide r Comment s: Other Abnorma lities of Gait and Mobilit y HC PRO 09450-3.61 Diagnos CARISSA BATEMAN 12/17 [place] PHONE CALL [id number] is: JAYY DIVYA S [place] 5-10 MIN ICD-10- HCS CM Z71.89 Other specifi ed certified substance abuse counselor ing<br/ >with Provide r Comment s: Other specifi [place] [address]-0.61 Diagnos CHARLIE, 12/17 [place] DIG [id number] is: STEVE Grant /2021 [facility] ASSMT&MGMT ICD-10- HCS 5-10 CM E11.8 Type 2 diabete s mellitu s with unspeci fied complic ations< br/>wit h Provide r Comment s: Type 2 diabete s mellitu s (SCT 1714872 6) Outpatient 50042-9.61 12/17 [place] Encounter [id number] [facility] OFFICE 27755-0.61 Diagnos RICH TOTH 12/20 [place] CONSULTAT[place] 8.52174728 is: NI [facility] [place] ON ICD-10- HCS CM N71.0 Acute inflamm atory disease of uterus< br/>wit h Provide r Comment s: Acute Inflamm atory Disease of Uterus Outpatient 48840-0.61 12/20 [place] Encounter [id number] /2021 [facility] Outpatient 78444-1.61 12/20 [place] Encounter [id number] /2022 [facility] Outpatient 82622-7.61 BEKA QUEZADA 12/21 [place] Encounter [id number] SE [facility] HC PRO 78869-7.61 Diagnos BEKA QUEZADA 12/21 [place] PHONE CALL 8.94199079 is: SE [facility] 21-30 MIN ICD-10- HCS CM Z65.8 Oth problem s related to psychos ocial circums tances< br/>wit h Provide r Comment s: Oth problem s related to psychos ocial circums tances Outpatient 27241-9.61 BEKA QUEZADA 12/21 [place] Encounter [id number] SE A [facility] Outpatient 51083-1.61 12/22 [place] Encounter [id number] [facility] Outpatient 40691-1.61 MADDI BENÍTEZ 12/22 [place] Encounter [id number] NAINA [facility] Out[facility] 52865-6.61 12/22 [place] En[place] [id number] [facility] 45547-2.61 12/22 [place] Encounter [id number] /2021 [facility] [facility] Outpatient 72127-2.61 12/23 [place] Encounter [id number] /2021 [facility] 60873-0.61 12/24 [place] Encounter [id number] /2021 [facility] 07864-9.61 12/24 [place] Encounter [id number] /2021 [facility] Outpatient 74326-6.61 EPIFANIO,SHALOM 12/24 [place] Encounter [id number] BIN [facility] PRERNA HCS Outpatient 71406-8.61 12/27 [place] Encounter [id number] /2021 [facility] HCS THERAPEUTI 83230-1.61 Diagnos MICHA DON 12/27 [place] C [id number] is: NNER W [facility] ACTIVITIES ICD-10- HCS CM G46.4 Cerebel lar stroke syndrom e
w ith Provide r Comment s: Cerebel lar Stroke Syndrom e Outpatient 21137-7.61 12/27 [place] Encounter [id number] /2021 [facility] HCS Outpatient 94011-9.61 12/27 [place] Encounter [id number] /2021 [facility] SELF CARE 55526-7.61 Diagnos MARNI,J 12/27 [place] MNGMENT [id number] is: ENNIFER E DIVYA S [place] TRAINING ICD-10- HCS CM R26.89 Other abnorma lities of gait and mobilit y
w ith Provide r Comment s: Other Abnorma lities of Gait and Mobilit y Outpatient 31250-2.61 Diagnos TOTHRICH 12/27 [place] Encounter [id number] is: NI [place] ICD-10- HCS CM N71.9 Inflamm atory disease of uterus, unspeci fied
with Provide r Comment s: Inflamm atory Disease of Uterus, unspeci fied Outpatient 41580-4.61 12/28 [place] Encounter [id number] /2021 [facility] [facility] Outpatient 71295-5.61 12/29 [place] Encounter [id number] /2022 [facility] Outpatient 53817-1.61 04 [place] En[place] [id number] /2021 [facility] Outpatient 07209-7.61 12/30 [place] Encounter [id number] [facility] Outpatient 33794-7.61 12/30 [place] Encounter [id number] /2021 [facility] Outpatient 22964-7.61 12/30 [place] Encounter [id number] /2021 [facility] Outpatient 05807-361 JACQUELIN, 01/03 [place] Encounter [id number] SHAHRZAD A [facility] Outpatient 72138-9.61 05/ [place] En[place] [id number] /2022 [facility] Outpatient 54942-0.61 05/ [place] Encounter [id number] [facility] Outpatient 67609-5.61 05/ [place] Encounter [id number] [facility] Outpatient 51033-7.61 05/ [place] Encounter [id number] [facility] Outpatient 48262-3.61 BRUESEHOFF / [place] Encounter [id number] MELISSAGUILLERMO [facility] Outpatient 52394-4.61 05/ [place] Encounter [id number] [facility] OFFICE O/P 09809-861 Diagnos Arsalan LOPEZ 01/10 [place] [id number] is: ASTRID K E C BOC 40-54 MIN 51 ICD-10- CM 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
with Provide r Comment s: Psychot ic disorde r w halluci n due to known physiol conditi on Outpatient 92780-4.61 05/10 [place] Encounter [id number] [facility] Outpatient 42620-4.61 05/ [place] Encounter [id number] [facility] Outpatient 33002-5.61 01/12 [place] Encounter [id number] [facility] Outpatient 95694-1.61 01/13 [place] Encounter [id number] [facility] Outpatient 44539-361 Kvng ROGEL 01/13 [place] Encounter [id number] EBECCA L [facility] ORAL 62546-1 Diagnos LEONELALOGA 01/13 [place] FUNCTION [id number] is: N P /2021 [facility] A THERAPY ICD-10- HCS CM I69.328 Oth speech/ lang deficit s followi ng cerebra l infarct ion<br/ >with Provide r Comment s: Oth speech/ lang deficit s followi ng cerebra l infarct ion EXT 08429-861 Diagnos FLORDANIELLE,JAYANT 01/14 [place] ECG>7D<15D [id number] is: REL [facility] REV&INTERP ICD-10- HCS J CM Z13.6 Encount er for screeni ng for cardiov ascular disorde rs
with Provide r Comment s: Encount er for Screeni ng for Cardiov ascular Disorde rs OFFICE O/P 04596-1.61 Diagnos Arsalan LOPEZ 01/17 [place] EST MOD [id number] is: ASTRID K /2021 E CBOC 30-39 MIN 20 ICD-10- CM R44.1 Visual halluci nations
[facility] Provide r Comment s: Visual Halluci nations Outpatient 30314-5.61 01/19 [place] Encounter [id number] [facility] Outpatient 90482-3.61 01/19 [place] Encounter [id number] [facility] Outpatient 24247-461 NEURAUTER, 01/20 [place] Encounter [id number] DHRUV M [facility] Outpatient 25103-961 01/24 [place] Encounter [id number] [facility] Outpatient 21070-901/24 [place] Encounter [id number] [facility] Outpatient 79894-7.61 01/24 [place] Encounter [id number] [facility] Outpatient 05993-7.01/24 [place] Encounter [id number] [facility] [place] [place] [address]-0. Diagnos SHEN CARUSO 01/24 [place] PHARM ADDL [id number] is: TNEY M E C BOC 15 MIN 62 ICD-10- CM E11.8 Type 2 diabete s mellitu s with unspeci fied complic ations< br/>wit h Provide r Comment s: Type 2 diabete s mellitu s (SCT 4225820 6) Outpatient 45201-7 PADMINI QUIÑONES 01/24 [place] Encounter [id number] C E CBO C 30 IMMUNIZATI 56404-5 Diagnos PADMINI QUIÑONES 01/24 [place] ON ADMIN [id number] is: C E CBOC 56 ICD-10- CM Z23 Encount er for immuniz ation<b r/>with Provide r Comment s: Encount er for any immuniz ation Outpatient 00940-6.61 01/24 [place] Encounter [id number] [facility] Outpatient 60520-5.61 01/25 [place] Encounter [id number] /2021 [facility] Outpatient 84882-5.61 01/26 [place] Encounter [id number] [facility] Outpatient 96717-9.61 01/26 [place] Encounter [id number] [facility] Outpatient 11848-2.61 01/30 [place] Encounter [id number] [facility] Outpatient 70724-0.45 02/02 [place] Encounter [id number] /2022 Marily NESS [facility] Outpatient 31847-1.61 / [place] Encounter [id number] /2021 [facility] Outpatient 84238-6.61 02/04 [place] Encounter [id number] [facility] Outpatient 81240-2.45 02/09 [place] Encounter [id number] /2021 Marily GUEVARAROCKY [facility] Outpatient 17596-1.61 02/10 [place] Encounter [id number] /2021 [facility] OFFICE O/P 06284-361 Diagnos CARL FRANCISCO 02/10 [place] [id number] is: RY L [facility] 60-74 MIN ICD-10- HCS CM H25.813 Combine d forms of age-rel ated catarac t, bilater al
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
wi Provide r Comment s: Visual halluci nations Outpatient 54021-9.61 02/15 [place] Encounter [id number] /2021 [facility] MEDICAL 39273-3 Diagnos GREGORIO FRANKSKatya 02/15 [place] NUTRITION [id number] is: E E E CBO C INDIV IN 18 ICD-10- CM Z71.3 Dietary certified substance abuse counselor ing and surveil yessenia<b r/>with Provide r Comment s: Dietary certified substance abuse counselor ing and surveil yessenia Outpatient 13973-8.61 02/15 [place] Encounter [id number] /2021 [facility] Outpatient 89049-461 SYSTEM,CIS 02/16 [place] Encounter [id number] -[place] [facility] Outpatient 81422-061 SYSTEM,CIS 02/16 [place] Encounter [id number] -ARK [facility] EMERGENCY 49359-261 Diagnos LEYDA HAWTHORNE 02/16 [place] DEPT VISIT [id number] is: P [facility] ICD-10- HCS CM R41.82 Altered mental status, unspeci fied
with Provide r Comment s: Altered Mental Status, unspeci fied Outpatient 80848-5.61 02/16 [place] Encounter [id number] [facility] [place] [place] [address]-5.61 Diagnos MEÑO COLLINS 02/16 [place] DIG [id number] is: N T [facility] ASSMT&MGMT ICD-10- HCS 11-20 CM E11.8 Type 2 diabete s mellitu s with unspeci fied complic ations< br/>wit h Provide r Comment s: Type 2 diabete s mellitu s (SCT 9857201 6) Inpatient 51974-9.61 Admit MAHOGANYSHARATH 02/16 03/04 [place] Encounter [id number] Reason: BRET /2021 [facility] HYPERGL [facility] YCEMIA/ AMS/BEH AVIORS< br/> Inpatient 10514-1.61 02/16 [place] Encounter [id number] [facility] Inpatient 97251-2.61 GORTONIE,JOSE E 02/16 02/16 [place] Encounter [id number] J /2021 [facility] Inpatient 66011-8.61 GORES,JOSE E 02/16 02/16 [place] Encounter [id number] J /2021 [facility] Inpatient 35340-9.61 SYSTEM,CIS 02/17 02/17 [place] Encounter [id number] -ARK /2021 [facility] Inpatient 50023-9.61 CLAUDIA DESIR 02/17 02/17 [place] Encounter [id number] RLY A /2021 [facility] Inpatient 15726-7.61 SYSTEM,CIS 02/18 02/18 [place] Encounter [id number] -ARK /2021 [facility] Inpatient 07258-9.61 HALIMAAUTCADEN, 02/18 02/18 [place] Encounter [id number] DHRUV M /2021 [facility] Inpatient 68200-6.61 SYSTEM,CIS 02/18 02/18 [place] Encounter [id number] -ARK /2021 [facility] Inpatient 71535-8.61 02/18 02/18 [place] Encounter [id number] /2021 [facility] INPATIENT 49177-8.61 Diagnos HEATH REGALADO 02/18 02/18 [place] CONSULTATI 8.15497353 is: KASIA E /2021 [facility] [place] ON ICD-10- HCS CM R41.9 Unsp symptom s and signs w cogniti ve functio ns and awarene ss
with Provide r Comment s: Unsp symptom s and signs w cogniti ve functio ns and awarene ss Inpatient 08370-3.61 02/18 02/18 [place] Encounter [id number] /2021 [facility] Inpatient 38865-5.61 02/18 02/18 [place] Encounter [id number] /2021 [facility] Inpatient 52737-9.61 SYSTEM,CIS 02/19 02/19 [place] Encounter [id number] -ARK /2021 [facility] Inpatient 74149-1.61 02/19 02/19 [place] Encounter [id number] /2021 [facility] OT EVAL 77126-1.61 Diagnos JULIAN MACHADO 02/19 02/19 [place] LOW [id number] is: Arsalan J /2021 [facility] COMPLEX 30 ICD-10- HCS MIN CM Z73.6 Limitat ion of activit ies due to disabil ity<br/ >with Provide r Comment s: Limitat ion of activit ies due to disabil ity Inpatient 40199-8.61 02/19 02/19 [place] Encounter [id number] /2021 [facility] Inpatient 87271-5.61 02/19 02/19 [place] Encounter [id number] /2021 [facility] Inpatient 47458-1.61 SYSTEM,CIS 02/20 02/20 [place] Encounter [id number] -ARK /2021 [facility] Inpatient 74494-3.61 02/20 02/20 [place] Encounter [id number] /2021 [facility] Inpatient 79082-2.61 02/20 02/20 [place] Encounter [id number] /2021 [facility] Inpatient 58116-3.61 02/20 02/20 [place] Encounter [id number] /2021 [facility] Inpatient 13423-1.61 SYSTEM,CIS 02/21 02/21 [place] Encounter [id number] -ARK /2021 [facility] Inpatient 86467-6.61 02/21 02/21 [place] Encounter [id number] /2021 [facility] Inpatient 10717-7.61 SYSTEM,CIS 02/22 02/22 [place] Encounter [id number] -ARK /2021 [facility] Inpatient 09059-3.61 02/22 02/22 [place] Encounter [id number] /2021 [facility] Inpatient 59698-8.61 02/22 02/22 [place] Encounter [id number] /2021 [facility] Inpatient 04809-6.61 SYSTEM,CIS 02/23 02/23 [place] Encounter [id number] -ARK /2021 [facility] Inpatient 84883-5.61 02/23 02/23 [place] Encounter [id number] /2021 [facility] Inpatient 13083-1.61 02/23 02/23 [place] Encounter [id number] /2021 [facility] HEARING 75649-0.61 Diagnos MELISSA BROWN 02/23 02/23 [place] AID EXAM [id number] is: AEL F /2021 [facility] A BOTH EARS ICD-10- HCS CM H90.3 Sensori neural hearing loss, bilater al
with Provide r Comment s: Sensori neural hearing loss, bilater al DYSPHAGIA 26389-2.61 Diagnos Rudy MYERS 02/23 02/23 [place] SCREENING [id number] is: RISTIN L /2021 [place] [facility] [place] ICD-10- HCS CM R41.841 Cogniti ve communi cation deficit
wi th Provide r Comment s: Cogniti ve communi cation deficit Inpatient 98841-7.61 02/23 02/23 [place] Encounter [id number] /2021 [facility] Inpatient 16023-1.61 SYSTEM,CIS 02/24 02/24 [place] Encounter [id number] -ARK /2021 [facility] Inpatient 09541-1.61 02/24 02/24 [place] Encounter [id number] /2021 [place] [facility] [place] [place] [address]-0.61 Diagnos NISHA BOTELLON 02/24 02/24 [place] ELECTRICIAN MANAGER [id number] is: H /2021 [facility] A [employer] ICD-10- HCS INDIVIDU CM Z71.81 Spiritu al or religio us certified substance abuse counselor ing<br/ >with Provide r Comment s: Spiritu al or religio us certified substance abuse counselor ing Inpatient 79759-4.61 SYSTEM,CIS 02/25 02/25 [place] Encounter [id number] -ARK /2021 [facility] Inpatient 47419-9.61 02/25 02/25 [place] Encounter [id number] /2021 [facility] MOTION 30030-1.61 Diagnos LUCIAK 02/25 02/25 [place] FLUOROSCOP [id number] is: RISTIN L /2021 [facility] [place] Y/SWALLOW ICD-10- HCS CM R13.12 Dysphag ia, orophar yngeal phase<b r/>with Provide r Comment s: Dysphag ia, orophar yngeal phase PT EVAL 89907-9.61 Diagnos ADRIEN, 02/25 02/25 [place] LOW [id number] is: DENISE J /2021 [facility] COMPLEX 20 ICD-10- HCS MIN CM R26.9 Unspeci fied abnorma lities of gait and mobilit y
w ith Provide r Comment s: Unspeci fied Abnorma lities of Gait and Mobilit y Inpatient 29492-0.61 02/25 02/25 [place] Encounter [id number] /2021 [facility] Inpatient 39838-2.61 02/25 02/25 [place] Encounter [id number] /2021 [facility] Inpatient 34627-9.61 SYSTEM,CIS 02/26 02/26 [place] Encounter [id number] -ARK /2021 [facility] Inpatient 57962-8.61 02/26 02/26 [place] Encounter [id number] /2021 [facility] THERAPEUTI 47343-7.61 Diagnos NUGENT,Jeanine 02/26 02/26 [place] C [id number] is: MCKENZIEANTONIO D /2021 [facility] ACTIVITIES ICD-10- HCS CM M62.81 Muscle weaknes s (genera lized)< br/>wit h Provide r Comment s: Muscle weaknes s (genera lized) Inpatient 00708-8.61 SYSTEM,CIS 02/27 02/27 [place] Encounter [id number] -ARK /2021 [facility] Inpatient 11665-1.61 02/27 02/27 [place] Encounter [id number] /2021 [facility] Inpatient 49227-7.61 02/27 02/27 [place] Encounter [id number] /2021 [facility] Inpatient 52016-9.61 02/28 02/28 [place] Encounter [id number] /2021 [facility] Inpatient 84457-7.61 SYSTEM,CIS 02/28 02/28 [place] Encounter [id number] -ARK /2021 [facility] Outpatient 11378-7.02/28 [place] Encounter [id number] Marily NESS [facility] SPEECH/HEA 39311-3.61 Diagnos DOBRIDGERERELAN,K 02/28 02/28 [place] RING [id number] is: KIKE L /2021 [facility] THERAPY ICD-10- HCS CM R13.11 Dysphag ia, oral phase<b r/>with Provide r Comment s: Dysphag ia, oral phase Outpatient 49022-0.45 02/28 [place] Encounter [id number] Marily [facility] Inpatient 19584-5.61 02/28 02/28 [place] Encounter [id number] /2021 [facility] Inpatient 84090-0.61 02/28 02/28 [place] Encounter [id number] /2021 [facility]patient 43174-7.61 03/01 03/01 [place] Encounter [id number] /2021 [facility] Inpatient 79454-0.61 SYSTEM,CIS 03/01 03/01 [place] Encounter [id number] -[place] /2021 [facility] THERAPEUTI 17167-9.61 Diagnos FLACA CADENA 03/01 03/01 [place] C [id number] is: P /2021 [facility] ACTIVITIES ICD-10- HCS CM M62.81 Muscle weaknes s (genera lized)< br/>wit h Provide r Comment s: Muscle Weaknes s (Genera lized) Inpatient 11088-7.61 03/01 03/01 [place] Encounter [id number] /2021 [facility] Inpatient 46222-2.61 03/01 03/01 [place] Encounter [id number] /2021 [facility] Inpatient 91416-2.61 SYSTEM,CIS 03/02 03/02 [place] Encounter [id number] -ARK /2021 [facility] Inpatient 28393-3.61 03/02 03/02 [place] Encounter [id number] /2021 [facility] SPEECH/HEA 28892-2.61 Diagnos DOBBERKE,K 03/02 03/02 [place] RING [id number] is: RISTIN L /2021 [facility] THERAPY ICD-10- HCS CM R13.10 Dysphag ia, unspeci fied
with Provide r Comment s: Dysphag ia, unspeci fied Inpatient 73408-0.61 03/02 03/02 [place] Encounter [id number] /2021 [facility] Inpatient 70336-4.61 03/02 03/02 [place] Encounter [id number] /20[place] [address]-6.61 Diagnos BOTELLO,MIKKI 03/02 03/02 [place] ELECTRICIAN MANAGER [id number] is: H /2021 [facility] [employer] ICD-10- HCS INDIVIDU CM Z71.81 Spiritu al or religio us certified substance abuse counselor ing<br/ >with Provide r Comment s: Spiritu al or religio us certified substance abuse counselor ing Inpatient 56371-9.61 03/02 03/02 [place] Encounter [id number] /2021 [facility] Inpatient 54805-4.61 03/03 03/03 [place] Encounter [id number] /2021 [facility] Inpatient 30439-8.61 SYSTEM,CIS 03/03 03/03 [place] Encounter [id number] -ARK /2021 [facility] Inpatient 68071-5.61 03/03 03/03 [place] Encounter [id number] /2021 [facility] INPATIENT 30890-8.61 Diagnos HADIZADEH 03/03 03/03 [place] CONSULTATI [id number] is: RUBEN,HAS /[address] [facility] ON ICD-10- TI HCS CM R41.9 Unsp symptom s and signs w cogniti ve functio ns and awarene ss
with Provide r Comment s: Unsp symptom s and signs w cogniti ve functio ns and awarene ss Inpatient 75158-6.61 03/03 03/03 [place] Encounter [id number] /2021 [facility] Inpatient 40339-2.61 03/03 [place] Encounter [id number] /2022 [facility] Inpatient 48249-8.61 SYSTEM,CIS 03/04 03/04 [place] Encounter [id number] -ARK /2021 [facility] Inpatient 57003-7.61 03/04 03/04 [place] Encounter [id number] /2021 [facility] Outpatient 56907-9.45 03/04 [facility] Encounter [id number] Marily NESS [facility] Inpatient 69131-1.61 03/04 [place] Encounter [id number] /2021 [facility] Outpatient 95629-2.45 07/ SPAR K Encounter [id number] /2021 Marily GUEVARAROCKY [facility] Outpatient 82124-7.61 07/02 [place] Encounter [id number] /2021 [facility] Outpatient 63802-2.61 07/02 [place] Encounter [id number] /2021 [facility] Outpatient 23116-0.61 07/05 [place] [facility] Encounter [id number] /2021 [facility] Outpatient 92797-1.61 07/05 [place] [facility] Encounter [id number] /2021 [facility] Outpatient 93273-9.61 07/05 [place] [facility] Encounter [id number] /2021 [facility] Outpatient 52498-0.61 07/ [place] [facility] Encounter [id number] /2021 [facility] Outpatient 86831-3.61 07/ [place] [facility] Encounter [id number] /2021 [facility] Outpatient 81812-2.61 07/ [place] [facility] Encounter [id number] /2021 [facility] HC PRO 42372-8.61 Diagnos WHITE,TERR 03/09 [place] PHONE CALL [id number] is: A R /2021 [facility] 5-10 MIN 33 ICD-10- CM Z71.9 Port Cdl A Driver ing, unspeci fied
with Provide r Comment s: Port Cdl A Driver ing, unspeci fied Outpatient 55101-9.61 07/08 [place] [facility] Encounter [id number] /2021 [facility] Outpatient 19307-1.61 SA IAN 07/ [place] Encounter [id number] RA R /2021 [facility] Outpatient 22170-7.61 07/11 [place] [facility] Encounter [id number] /2021 [facility] Outpatient 60157-0.61 07/12 [place] Encounter [id number] /2021 [facility] Outpatient 56937-1.61 07/12 [place] Encounter [id number] /2021 [facility] Outpatient 90338-7.61 07/12 [place] Encounter [id number] /2021 [facility] Outpatient 15282-4.61 03/16 [place] Encounter [id number] /2021 [facility] Outpatient 13923-4.61 03/16 [place] Encounter [id number] /2021 [facility] Outpatient 03212-6.61 03/16 [place] Encounter [id number] /2021 [facility] Outpatient 23963-0.61 03/16 [place] Encounter [id number] /2021 [facility] Outpatient 17468-9.61 SYSTEM,CIS 03/17 [place] Encounter [id number] -[place] [facility] Out[place] 77167-9.61 03/17 [place] Encounter [id number] /2021 [facility] Out[place] 23157-5.61 03/17 [place] Encounter [id number] /2021 [facility] Outpatient 78947-7.61 SYSTEM,CIS 03/17 [place] Encounter [id number] -AR [facility] EMERGENCY 18056-4.61 Diagnos HAWTHORNE,LEYDA 03/17 [place] DEPT VISIT [id number] is: P /[address] [facility] ICD-10- HCS CM S09.90X A Unspeci fied injury of head, initial encount er
with Provide r Comment s: Unspeci fied Injury of Head, Initial Encount er Outpatient 40997-5.61 03/17 [place] Encounter [id number] /2021 [facility] Outpatient 84933-1.61 03/18 [place] Encounter [id number] /2021 [facility] Outpatient 86865-0.61 03/18 [place] Encounter [id number] /2021 [facility] OFFICE O/P 07756-2.61 Diagnos HEYDIJ 03/18 [place] EST HI [id number] is: JASKARAN M /2021 [facility] 40-54 MIN ICD-10- HCS CM Z85.841 Persona l history of maligna nt neoplas m of brain<b r/>with Provide r Comment s: Brain tumor (SCT 8800455 02) Outpatient 41488-1.61 PFUTZENREU 03/18 [place] Encounter [id number] ILENERODRICK C /2021 [facility] MED 89284-8.61 Diagnos SHREYA FRANKS 03/21 [facility] [place] NUTRITION [id number] is: E E E CBO C INDIV 71 ICD-10- SUBSEQ CM Z71.3 Dietary certified substance abuse counselor ing and surveil yessenia<b r/>with Provide r Comment s: Dietary certified substance abuse counselor ing and surveil yessenia [place] 01411-5.61 Diagnos SHADYWHI 03/21 S [facility] PHONE CALL [id number] is: NIKUNJ M E C BOC 11-20 MIN 98 ICD-10- CM E11.8 Type 2 diabete s mellitu s with unspeci fied complic ations< br/>wit h Provide r Comment s: Type 2 diabete s mellitu s (SCT 8424852 6) OFFICE O/P 16566-7.61 Diagnos Arsalan LOPEZ 03/21 [place] EST MOD [id number] is: ASTRID K E CBOC 30-39 MIN 67 ICD-10- CM F07.9 Unsp persona lity & behavrl disord due to known physiol cond
with Provide r Comment s: Unspeci fied Persona lity and Behavio ral Disorde r due to Known Physiol ogical Conditi on Outpatient 42595-4.61 03/22 [place] Encounter [id number] /2022 [facility] Outpatient 87264-4.45 Diagnos QAWALANGIN, 03/23 [place] Encounter [id number] is: MARIO A M. 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
with Provide r Comment s: Age-rel ated nuclear catarac t, bilater al Outpatient 22828-1.61 03/28 [place] En[place] [id number] [facility] Out[place] 38487-0.61 03/29 [place] En[place] [id number] /2021 [facility] Out[facility] 67845-0.61 03/29 [place] En[place] [id number] /2021 [facility] Out[facility] 97533-7.61 03/29 [place] En[place] [id number] [facility] Outpatient 55693-8.61 03/29 [place] En[place] [id number] /2021 [facility] Outpatient 02245-1.61 03/29 [place] En[place] [id number] /2021 [facility] Outpatient 98309-4.61 INGA POLANCO 03/30 [place] En[place] [id number] [facility] Out[facility] 97724-8.61 03/30 [place] En[place] [id number] [facility] Out[facility] 13623-0.61 03/30 [place] En[place] [id number] [facility] Out[facility] 47006-9.61 03/30 [place] En[place] [id number] [facility] Out[facility] 61862-2.61 03/31 [place] En[place] [id number] /2021 [facility] Out[facility] 67396-7.61 Rudy Reece 04/01 [place] Encounter [id number] is: MORALES S /2021 [facility] ICD-10- HCS CM I63.9 Cerebra l infarct ion, unspeci fied
with Provide r Comment s: Cerebra l Infarct ion, unspeci fied Outpatient 70099-6.61 JUSTINO SHOOK 04/01 [place] En[place] [id number] DUARTE /2021 [facility] Outpatient 45313-7.61 04/04 [place] En[place] [id number] /2021 [facility] Outpatient 34950-2.61 SONIA GUARDADO 04/04 [place] En[place] [id number] Y C /2021 [facility] Outpatient 13042-1.61 04/04 [place] Encounter [id number] /2021 [facility] Outpatient 81240-7.61 SYSTEM,CIS 04/05 [place] Encounter [id number] -ARK /2021 [facility] Outpatient 52927-7.61 04/05 [place] Encounter [id number] /2021 [facility] Outpatient 77714-2.61 SYSTEM,CIS 04/05 [place] Encounter [id number] -ARK /2021 [facility] Outpatient 83107-9.61 04/05 [place] Encounter [id number] /2021 [facility] SELF CARE 67870-6.61 Diagnos ARIANMICHA 04/05 [place] MNGMENT [id number] is: NNER W /2021 [facility] ICD-10- HCS CM I69.315 Cogniti ve social or emo def followi ng cerebra l infarct ion<br/ >with Provide r Comment s: Cogniti ve social or emotion al deficit followi ng cerebra l infarct ion Outpatient 11566-0.61 04/05 [place] Encounter [id number] /2021 [facility] EMERGENCY 41067-8.61 Diagnos ESME BIANCHI 04/05 [place] DEPT VISIT [id number] is: HAEL A /2021 [facility] [place] ICD-10- HCS CM W18.39X A Other fall on same level, initial encount er
with Provide r Comment s: Other Fall on same Level, Initial Encount er Outpatient 55872-6.61 04/05 [place] En[place] [id number] [facility] 32634-3.61 04/05 [place] En[place] [id number] [facility] Inpatient 07882-2.61 Admit BONGERS,QU 04/05 05/05 [place] Encounter [id number] Reason: INN C /2021 [facility] S/C6 FX
Diagnos is: ICD-10- CM E11.8 Type 2 diabete s mellitu s with unspeci fied complic ations< br/>wit h Provide r Comment s: Type 2 diabete s mellitu s (SCT 3043570 6) Inpatient 60515-2.61 Admit BONGERS,QU 04/05 [place] Encounter [id number] Reason: INN C /2021 [facility] S/C6 FX
Inpatient 96374-1.61 04/05 04/05 [place] Encounter [id number] /2021 [facility] Inpatient 36014-8.61 04/05 04/05 [place] Encounter [id number] /2021 [facility] Inpatient 05080-2.61 SYSTEM,CIS 04/05 04/05 [place] Encounter [id number] -ARK /2021 [facility] Inpatient 97652-3.61 04/05 04/05 [place] Encounter [id number] /2021 [facility] Inpatient 21240-6.61 SYSTEM,CIS 04/06 04/06 [place] Encounter [id number] -ARK /2021 [facility] Inpatient 26711-7.61 04/06 04/06 [place] Encounter [id number] /2021 [facility] Inpatient 01106-4.61 04/06 04/06 [place] Encounter [id number] /2021 [facility] Inpatient 19725-2.61 SYSTEM,CIS 04/07 04/07 [place] Encounter [id number] -ARK /2021 [facility] Inpatient 01292-2.61 0804/07 [place] Encounter [id number] /2021 [facility] Inpatient 07595-7.61 04/07 04/07 [place] Encounter [id number] /2021 [facility] Inpatient 66720-5.61 04/07 04/07 [place] Encounter [id number] /2021 [facility] ORAL 38489-7.61 Diagnos WOLLERSHEI 04/07 04/07 [place] FUNCTION [id number] is: M,CEASAR /2021 [facility] ICD-10- K HCS CM R13.12 Dysphag ia, orophar yngeal phase<b r/>with Provide r Comment s: Dysphag ia, orophar yngeal phase Inpatient 06277-7.61 04/07 04/07 [place] Encounter [id number] /2021 [facility] Inpatient 05544-3.61 04/07 04/07 [place] Encounter [id number] /2021 [facility] [place] [facility] [place] [address]-0.61 Diagnos JUNIE,BR 04/07 04/07 [place] ELECTRICIAN MANAGER [id number] is: UCE C /2021 [facility] [employer] ICD-10- HCS INDIVIDU CM Z71.81 Spiritu al or religio us certified substance abuse counselor ing<br/ >with Provide r Comment s: Spiritu al or religio us certified substance abuse counselor ing Inpatient 15325-2.61 04/07 04/07 [place] Encounter [id number] /2021 [facility] Inpatient 93788-0.61 SYSTEM,CIS 04/08 04/08 [place] Encounter [id number] -ARK /2021 [facility] Inpatient 60330-5.61 04/08 04/08 [place] Encounter [id number] /2021 [facility] ORAL 71683-1.61 Diagnos WOLLERSHEI 04/08 04/08 [place] FUNCTION [id number] is: M,CEASAR /2021 [facility] ICD-10- K [facility] CM R13.12 Dysphag ia, orophar yngeal phase<b r/>with Provide r Comment s: Dysphag ia, orophar yngeal phase Inpatient 01403-8.61 04/08 04/08 [place] Encounter [id number] /2021 [facility] [place] [address]-1.61 Diagnos BERTA,ANGIE 04/08 04/08 [place] ELECTRICIAN MANAGER [id number] is: ALD F /2021 [facility] [employer] ICD-10- HCS INDIVIDU CM Z71.81 Spiritu al or religio us certified substance abuse counselor ing<br/ >with Provide r Comment s: Spiritu al or religio us certified substance abuse counselor ing Inpatient 19911-6.61 04/08 04/08 [place] Encounter [id number] /2021 [facility] Inpatient 55183-1.61 04/09 04/09 [place] En[place] [id number] /2021 [facility] Inpatient 07875-9.61 SYSTEM,CIS 04/09 04/09 [place] Encounter [id number] -ARK /2021 [facility] Inpatient 60432-9.61 04/09 04/09 [place] Encounter [id number] /2021 [facility] Inpatient 22925-6.61 04/09 04/09 [place] Encounter [id number] /2021 [place] [address]-8.61 Diagnos BERTA,ANGIE 04/09 04/09 [facility] ELECTRICIAN MANAGER [id number] is: ALD F /2021 [facility] [employer] ICD-10- HCS INDIVIDU CM Z71.81 Spiritu al or religio us certified substance abuse counselor ing<br/ >with Provide r Comment s: Spiritu al or religio us certified substance abuse counselor ing Inpatient 29247-2.61 04/09 04/09 [place] Encounter [id number] /2021 [facility] Inpatient 04978-6.61 SYSTEM,CIS 04/10 04/10 [place] Encounter [id number] -ARK /2021 [facility] Inpatient 95918-7.61 SYSTEM,CIS 04/11 04/11 [place] Encounter [id number] -ARK /2021 [facility] Inpatient 18448-2.61 BOB-Rudy 04/11 04/11 [place] Encounter [id number] BRODERICK AYALA /2021 [facility] Inpatient 31401-1.61 04/11 04/11 [place] Encounter [id number] /2021 [facility] [place] [address]-4.61 Diagnos LINDA 04/11 04/11 [place] 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
with Provide r Comment s: Unspeci fied Dementi a with Behavio ral Disturb ance Inpatient 44540-2.61 04/11 04/11 [place] Encounter [id number] /2021 [facility] Inpatient 81344-6.61 04/11 04/11 [place] Encounter [id number] /2021 [facility] Inpatient 29595-3.61 SYSTEM,CIS 04/12 04/12 [place] Encounter [id number] -ARK /2021 [facility] Inpatient 67644-6.61 04/12 04/12 [place] Encounter [id number] /2021 [facility] Inpatient 66823-6.61 04/12 [place] Encounter [id number] /2021 [facility] Inpatient 53593-3.61 04/12 04/12 [place] Encounter [id number] /[facility] In[facility] 14840-3.61 SYSTEM,CIS 04/13 04/13 [place] Encounter [id number] -ARK /2021 [facility] Inpatient 78479-7.61 04/13 04/13 [place] Encounter [id number] /2021 [facility] Inpatient 50483-0.61 04/13 04/13 [place] Encounter [id number] /2021 [facility] OT EVAL 79506-2.61 Diagnos MARIANO COYNE 04/13 04/13 [place] MOD [id number] is: /2021 [facility] COMPLEX 45 ICD-10- HCS MIN CM Z73.6 Limitat ion of activit ies due to disabil ity<br/ >with Provide r Comment s: Limitat ion of activit ies due to disabil ity THERAPEUTI 73711-6.61 Diagnos CHERELLE LOZANO 04/13 04/13 [place] C [id number] is: NE /2021 [facility] ACTIVITIES ICD-10- BESS [facility] CM M62.81 Muscle weaknes s (genera lized)< br/>wit h Provide r Comment s: Muscle weaknes s (genera lized) Inpatient 71141-2.61 04/13 04/13 [place] Encounter [id number] /2021 [facility] Inpatient 18097-0.61 04/13 04/13 [place] Encounter [id number] /2021 [facility] SPEECH/HEA 74353-8.61 Diagnos WOLLERSHEI 04/13 04/13 [place] RING [id number] is: M,CEASAR /2021 [facility] ICD-10- K [facility] CM R41.841 Cogniti ve communi cation deficit
wi th Provide r Comment s: Cogniti ve communi cation deficit Inpatient 63108-2.61 SYSTEM,CIS 04/14 04/14 [place] Encounter [id number] -ARK /2021 [facility] Inpatient 33982-6.61 04/14 04/14 [place] Encounter [id number] /2021 [facility] Inpatient 51003-9.61 04/14 04/14 [place] Encounter [id number] /2021 [facility] Inpatient 22485-8.61 Diagnos AMALIA 04/14 04/14 [place] Encounter [id number] is: ,SIDDHARTHA /2021 [place] ICD-10- HCS CM E11.8 Type 2 diabete s mellitu s with unspeci fied complic ations< br/>wit h Provide r Comment s: Type 2 diabete s mellitu s (SCT 9925058 6) SPEECH/HEA 89548-1.61 Diagnos WOLLERSHEI 04/14 04/14 [place] RING [id number] is: M,CEASAR /2021 [facility] [facility] ICD-10- K [facility] CM R41.841 Cogniti ve communi cation deficit
wi th Provide r Comment s: Cogniti ve communi cation deficit Inpatient 62348-0.61 04/14 04/14 [place] Encounter [id number] /2021 [facility] Inpatient 71689-3.61 04/14 04/14 [place] Encounter [id number] /2021 [facility] Inpatient 87055-9.61 04/14 [place] Encounter [id number] /2021 [facility] Inpatient 82678-8.61 04/14 04/14 [place] Encounter [id number] /2021 [facility] Inpatient 61705-5.61 04/14 04/14 [place] Encounter [id number] /2021 [facility] Inpatient 35210-3.61 SYSTEM,CIS 04/15 04/15 [place] Encounter [id number] -ARK /2021 [facility] Inpatient 91104-2.61 04/15 04/15 [place] Encounter [id number] /2021 [facility] Inpatient 94472-4.61 04/15 04/15 [place] Encounter [id number] /2021 [facility] THERAPEUTI 76352-3.61 Diagnos CHERELLE LOZANO 04/15 04/15 [place] C [id number] is: NE /[address] [facility] ACTIVITIES ICD-10- BESS [facility] CM R26.89 Other abnorma lities of gait and mobilit y
w ith Provide r Comment s: Other abnorma lities of gait and mobilit y Inpatient 84593-5.61 04/15 04/15 [place] Encounter [id number] /2021 [facility] Inpatient 51394-7.61 04/15 04/15 [place] Encounter [id number] /2021 [facility] Inpatient 06088-5.61 SYSTEM,CIS 04/16 04/16 [place] Encounter [id number] -ARK /2021 [facility] Inpatient 90979-9.61 04/16 04/16 [place] Encounter [id number] /2021 [facility] Inpatient 77575-5.61 SYSTEM,CIS 04/17 04/17 [place] Encounter [id number] -ARK /2021 [facility] Inpatient 79276-6.61 04/17 04/17 [place] Encounter [id number] /2021 [facility] Inpatient 74073-8.61 04/17 04/17 [place] Encounter [id number] /2021 [facility] Inpatient 45499-6.61 04/17 04/17 [place] Encounter [id number] /2021 [facility] Inpatient 31776-4.61 SYSTEM,CIS 04/18 04/18 [place] Encounter [id number] -ARK /2021 [facility] Inpatient 16944-1.61 04/18 04/18 [place] Encounter [id number] /2021 [facility] Inpatient 37952-9.61 04/18 04/18 [place] Encounter [id number] /2021 [facility] Inpatient 25169-6.61 04/18 [facility] [facility] Encounter [id number] /2021 [facility] 00 Inpatient 86291-8.61 04/18 04/18 [place] Encounter [id number] /[address] [facility] HCS Inpatient 33624-4.61 04/18 [place] Encounter [id number] /2021 [facility] H[facility] Inpatient 84660-3.61 04/18 04/18 [place] Encounter [id number] /2021 [facility] Inpatient 37723-3.61 SYSTEM,CIS 04/19 04/19 [place] Encounter [id number] -ARK /2021 [facility] HCS Inpatient 48118-5.61 04/19 04/19 [place] Encounter [id number] /2021 [facility] HCS Inpatient 54776-0.61 04/19 04/19 [place] Encounter [id number] /2021 [facility] SELF CARE 26116-0.61 Diagnos MARIANO COYNE 04/19 04/19 M [place] MNGMENT [id number] is: /[address] [facility] TRAINING ICD-10- HCS CM Z73.6 Limitat ion of activit ies due to disabil ity<br/ >with Provide r Comment s: Limitat ion of activit ies due to disabil ity THERAPEUTI 34423-0.61 Diagnos CHERELLE LZOANO 04/19 04/19 [place] C [id number] is: NE /[address] [facility] ACTIVITIES ICD-10- BESS HCS CM R26.89 Other abnorma lities of gait and mobilit y
w ith Provide r Comment s: Other abnorma lities of gait and mobilit y Inpatient 71060-4.61 04/19 04/19 [place] Encounter [id number] /[address] [facility] HCS CONFORMITY 58481-8.61 Diagnos KEVINMELISSA 04/19 04/26 [place] EVALUATION 8.67525553 is: AEL F /[address] [facility] ICD-10- HCS CM H90.3 Sensori neural hearing loss, bilater al
with Provide r Comment s: Sensori neural hearing loss, bilater al CONFORMITY 54953-6.61 Diagnos MELISSA BROWN 04/19 04/19 [place] EVALUATION 8.47841324 is: AEL F /[address] [facility] ICD-10- HCS CM Z46.1 Encount er for fitting and adjustm ent of hearing aid<br/ >with Provide r Comment s: Encount er for Fitting and Adjustm ent of Hearing Aid Inpatient 72592-0.61 04/19 04/19 [place] Encounter [id number] /2021 [facility] Inpatient 76234-8.61 SYSTEM,CIS 04/20 04/20 [place] Encounter [id number] -ARK /2021 [facility] Inpatient 48475-0.61 04/20 04/20 [place] Encounter [id number] /2021 [facility] Inpatient 35869-4.61 04/20 04/20 [place] Encounter [id number] /2021 [facility] Outpatient 08378-8.45 04/20 [facility] [facility] Encounter [id number] Marily NESS [facility] Inpatient 47600-6.61 04/20 [place] Encounter [id number] /2021 [facility] Inpatient 91712-6.61 SYSTEM,CIS 04/21 04/21 [place] Encounter [id number] -ARK /2021 [facility] Inpatient 92323-9.61 04/21 04/21 [place] Encounter [id number] /2021 [place] [address]-7.61 MIKKI Maher 04/21 04/21 [place] ELECTRICIAN MANAGER [id number] is: H /2021 [facility] [employer] ICD-10- HCS INDIVIDU CM Z71.81 Spiritu al or religio us certified substance abuse counselor ing<br/ >with Provide r Comment s: Spiritu al or religio us certified substance abuse counselor ing Inpatient 23784-0.61 04/21 04/21 [place] Encounter [id number] /2021 [facility] Inpatient 83692-3.61 SYSTEM,CIS 04/22 04/22 [place] Encounter [id number] -ARK /2021 [facility] Inpatient 18677-8.61 04/22 04/22 [place] Encounter [id number] /2021 [facility] INPATIENT 49330-8.61 Diagnos FABRICIOHEATH 04/22 04/22 [place] CONSULTATI [id number] is: KASIA E /[address] [facility] ON ICD-10- [facility] CM R41.9 Unsp symptom s and signs w cogniti ve functio ns and awarene ss
with Provide r Comment s: Unsp symptom s and signs w cogniti ve functio ns and awarene ss Inpatient 12233-6.61 04/23 04/23 [place] Encounter [id number] /2021 [facility] Inpatient 95794-3.61 SYSTEM,CIS 04/23 04/23 [place] Encounter [id number] -ARK /2021 [facility] Inpatient 77802-0.61 04/23 04/23 [place] Encounter [id number] /2021 [facility] Inpatient 53770-1.61 04/23 04/23 [place] Encounter [id number] /2021 [facility] Inpatient 82483-4.61 04/23 04/23 [place] Encounter [id number] /2021 [facility] Inpatient 39692-4.61 04/23 04/23 [place] Encounter [id number] /2021 [facility] Inpatient 96624-6.61 04/23 04/23 [place] Encounter [id number] /2021 [facility] Inpatient 34386-5.61 SYSTEM,CIS 04/24 04/24 [place] Encounter [id number] -ARK /2021 [facility] Inpatient 11231-6.61 04/24 04/24 [place] Encounter [id number] /2021 [facility] Inpatient 14796-6.61 SYSTEM,CIS 04/25 04/25 [place] Encounter [id number] -ARK /2021 [facility] Inpatient 62206-3.61 04/25 04/25 [place] Encounter [id number] /2021 [facility] INPATIENT 33234-3.61 Diagnos REGALADO,LA 04/25 04/25 [place] CONSULTATI [id number] is: URA E /2021 [facility] [place] ICD-10- HCS CM R41.9 Unsp symptom s and signs w cogniti ve functio ns and awarene ss
with Provide r Comment s: Unsp symptom s and signs w cogniti ve functio ns and awarene ss Inpatient 82535-3.61 04/25 [place] Encounter [id number] /2021 [facility] Inpatient 32237-9.61 SYSTEM,CIS 04/26 04/26 [place] Encounter [id number] -[place] /2021 [facility] THERAPEUTI 89297-0.61 Diagnos CHERELLE LOZANO 04/26 04/26 [place] [id number] is: NE /2021 [facility] [place] ACTIV[place] ICD-10- BESS HCS CM Z91.81 History of falling
wi th Provide [place]: [place] [address]-3.61 Diagnos NISHA BOTELLON 04/26 04/26 [place] ELECT[employer]ICIAN MANAGER [id number] is: H /2021 [facility] [employer] ICD-10- HCS INDIVIDU CM Z71.81 Spiritu al or religio us certified substance abuse counselor ing<br/ >with Provide r Comment s: Spiritu al or religio us certified substance abuse counselor ing Inpatient 91446-3.61 04/26 04/26 [place] Encounter [id number] /2021 [facility] Inpatient 95148-7.61 04/26 04/26 [place] Encounter [id number] /2021 [facility] Inpatient 46847-6.61 SYSTEM,CIS 04/27 04/27 [place] Encounter [id number] -ARK /2021 [facility] Inpatient 89100-1.61 04/27 04/27 [place] Encounter [id number] /2021 [facility] Inpatient 08177-9.61 04/27 04/27 [place] Encounter [id number] /2021 [facility] Inpatient 03456-6.61 04/27 04/27 [place] Encounter [id number] /2021 [facility] Inpatient 16415-7.61 04/27 04/27 [place] Encounter [id number] /2021 [facility] Inpatient 86821-0.61 04/27 [place] Encounter [id number] /2021 [facility] Inpatient 73517-1.61 SYSTEM,CIS 04/28 04/28 [place] Encounter [id number] -ARK /2021 [facility] Inpatient 40562-5.61 04/28 04/28 [place] Encounter [id number] /2021 [facility] Inpatient 31718-7.61 04/28 04/28 [place] Encounter [id number] /2021 [facility] Inpatient 13994-0.61 04/28 [place] Encounter [id number] /2021 [facility] Inpatient 81421-6.61 04/28 04/28 [place] Encounter [id number] /2021 [place] [address]-3.61 Diagnos MIKKI BOTELLO 04/28 04/28 [place] ELECTRICIAN MANAGER [id number] is: H /2021 [facility] [employer] ICD-10- HCS INDIVIDU CM Z71.81 Spiritu al or religio us certified substance abuse counselor ing<br/ >with Provide r Comment s: Spiritu al or religio us certified substance abuse counselor ing Inpatient 18154-7.61 04/28 04/28 [place] Encounter [id number] /2021 [facility] Inpatient 01087-4.61 SYSTEM,CIS 04/29 04/29 [place] Encounter [id number] -ARK /2021 [facility] Inpatient 61293-6.61 04/29 04/29 [place] Encounter [id number] /2021 [facility] Inpatient 52828-1.61 04/29 [place] Encounter [id number] /2021 [facility] Inpatient 50569-0.61 SYSTEM,CIS 04/30 04/30 [place] Encounter [id number] -ARK /[address] [facility] HCS Inpatient 79814-8.61 04/30 04/30 [place] Encounter [id number] /2021 [facility] Inpatient 02223-2.61 SYSTEM,CIS 05/01 05/01 [place] Encounter [id number] -ARK /2021 [facility] Inpatient 96953-0.61 05/01 05/01 [place] Encounter [id number] /2021 [facility] Inpatient 98903-6.61 SYSTEM,CIS 05/02 05/02 [place] Encounter [id number] -ARK /2021 [facility] Inpatient 95258-2.61 05/02 05/02 [place] Encounter [id number] /2021 [facility] Inpatient 13291-3.61 05/02 05/02 [place] Encounter [id number] /2021 [facility] NUBHVL XM 10905-8.61 Diagnos MIKA CANTU 05/02 05/03 [place] PHYS/QHP [id number] is: RICIA H /2021 [place] 1ST HR ICD-10- HCS CM G46.4 Cerebel lar stroke syndrom e
w ith Provide r Comment s: Stroke ([facility] [id number] 07) Inpatient 72886-9.61 05/02 [place] Encounter [id number] /2021 [facility] Inpatient 47895-0.61 05/02 05/02 [place] Encounter [id number] /2021 [facility] Inpatient 41537-1.61 SYSTEM,CIS 05/03 05/03 [place] Encounter [id number] -ARK /2021 [facility] Inpatient 62994-4.61 05/03 05/03 [place] Encounter [id number] /2021 [facility] Inpatient 71104-3.61 05/03 05/03 [place] Encounter [id number] /2021 [facility] Inpatient 69518-7.61 05/03 05/03 [place] Encounter [id number] /2021 [facility] Inpatient 82809-8.61 05/03 [place] Encounter [id number] /2021 [facility] Inpatient 59476-0.61 SYSTEM,CIS 05/04 05/04 [place] Encounter [id number] -ARK /2021 [facility] Inpatient 96890-5.61 05/04 05/04 [place] Encounter [id number] /2021 [facility] Inpatient 05174-1.61 05/04 05/04 [place] Encounter [id number] /2021 [facility] Inpatient 22903-9.61 05/04 05/04 [place] Encounter [id number] /2021 [facility] Inpatient 36029-4.61 05/04 05/04 [place] Encounter [id number] /2021 [facility] Inpatient 88343-6.61 SYSTEM,CIS 05/05 05/05 [place] Encounter [id number] -ARK /2021 [facility] Inpatient 21367-9.61 05/05 [place] Encounter [id number] /2021 [facility] In[facility] 54046-8.61 05/05 05/05 [place] Encounter [id number] /2021 [facility] Inpatient 64966-3.61 05/05 05/05 [place] Encounter [id number] /2021 [facility] Inpatient 36935-1.61 05/05 05/05 [place] Encounter [id number] /[facility]21 [facility] Out[facility] 21389-6.61 09 [place] Encounter [id number] /2021 [facility] 62411-5.61 09 [place] Encounter [id number] /2021 [facility] Out[facility] 78729-5.61 05/06 [place] Encounter [id number] /2021 [facility] 13007-5.61 05/11 [place] Encounter [id number] /2021 [facility] Out[facility] 25474-1.61 05/11 [place] Encounter [id number] /2021 [facility] 27299-6.61 09/ [place] Encounter [id number] /2021 [facility] 47639-0.61 /08 [place] Encounter [id number] /2021 [facility] 19921-2.61 / [place] Encounter [id number] /2021 [facility] 25005-5.61 05/13 [place] Encounter [id number] /2021 [facility] 29212-7.61 05/13 [place] Encounter [id number] /2021 [facility] Out[facility] 60370-4.61 05/13 [place] Encounter [id number] /2021 [facility] 00055-1.61 05/13 [place] Encounter [id number] /2021 [facility] Out[facility] 94828-1.61 05/13 [place] Encounter [id number] /2021 [facility] Out[facility] 24240-4.61 05/16 [place] Encounter [id number] /2021 [facility] 74665-7.61 NANCY BOTELLO 05/18 [place] Encounter [id number] HIA L [facility] HC PRO 68483-8.61 LEDY [place] 05/18 [place] PHONE CALL [id number] is: SEY R /2021 [facility] 21-30 MIN ICD-10- HCS CM E11.8 Type 2 diabete s mellitu s with unspeci fied complic ations< br/>wit h Provide r Comment s: Type 2 diabete s mellitu s (SCT [id number] 6) Outpatient 33287-2.61 05/19 [place] Encounter [id number] /2021 [facility] Out[facility] 15652-8.61 05/20 [place] Encounter [id number] /2021 [facility] 70994-8.61 HAAGENSTINY, 05/20 [place] Encounter [id number] [facility] Out[facility] 81458-5.61 05/23 [place] Encounter [id number] /2021 [facility] 90803-9.61 05/25 [place] Encounter [id number] /2021 [facility] Outpatient 16414-9.61 05/25 [place] Encounter [id number] /2021 [facility] Outpatient 63743-2.61 05/27 [place] Encounter [id number] /2021 [facility] Out[facility] 65305-4.61 05/30 [place] Encounter [id number] /2021 [facility] DIABETIC 35126-761 Diagnos LUCIANO,AN 05/30 [place] MANAGEMENT [id number] is: SOILA M /2021 [facility] PROGRAM, ICD-10- HCS CM E11.65 Type 2 diabete s mellitu s with hypergl ycemia< br/>wit h Provide r Comment s: Type 2 diabete [place] [address]-3.61 Diagnos LEDY HAJI 05/30 [place] PHARM EST [id number] is: SEY R [facility] 15 MIN ICD-10- HCS CM E11.8 Type 2 diabete s mellitu s with unspeci fied complic ations< br/>wit h Provide r Comment s: Type 2 diabete s mellitu s (SCT [id number] 6) OFFICE O/P 36709-3 Diagnos BURDEN,MAR 05/30 [place] EST [id number] is: RAJANI [facility] MINIMAL ICD-10- HCS PROB CM Z85.841 Persona l history of maligna nt neoplas m of brain<b r/>with Provide r Comment s: Brain tumor (SCT [id number] 02) OFFICE O/P 86807-3 [facility]os [facility]30 [place] EST LOW [id number] is: HELL E [facility] 20-29 MIN ICD-10- HCS CM H25.13 Age-rel ated nuclear catarac t, bilater al
with Provide r Comment s: Age-rel ated nuclear catarac t, bilater al Outpatient 16265-4.61 05/30 [place] Encounter [id number] [facility] Outpatient 76430-8.61 05/31 [place] Encounter [id number] [facility] Outpatient 71387-4.61 DEBBYCIND 05/31 [place] Encounter [id number] Y [facility] Outpatient 00558-2.61 DEBBY,CIND 05/31 [place] Encounter [id number] Y C [facility] OFFICE O/P 44152-3.61 Diagnos LOPEZ,A 06/01 [place] EST MOD [id number] is: MINDAJIGAR K E [facility] 30-39 MIN 82 ICD-10- CM R41.82 Altered mental status, unspeci fied
with Provide r Comment s: Altered mental status, unspeci fied HC PRO 20553-4.61 Diagnos CARRILLO 06/01 [place] PHONE CALL [id number] is: NORMAN [facility] E [facility] 11-20 MIN 89 ICD-10- M CM G46.4 Cerebel lar stroke syndrom e
w ith Provide r Comment s: Stroke (SCT [id number] 07) Outpatient 20114-0.61 06/01 [place] Encounter [id number] /2021 [facility] PT EVAL 10409-8.61 Diagnos DIEGO,I 06/02 [place] MOD [id number] is: NGRID [facility] ICD-10- [facility] MIN CM R26.2 Difficu lty in walking , not elsewhe re classif ied<br/ >with Provide r Comment s: Difficu lty in Walking , not elsewhe re classif ied Outpatient 42950-8.61 06/03 [place] Encounter [id number] [facility] Outpatient 04126-0.61 DONYA RIVAS 06/04 [place] Encounter [id number] ISTEN L [facility]YA [facility] Outpatient 65243-5.61 06/06 [place] Encounter [id number] [facility] Outpatient 54596-8.61 06/07 [place] Encounter [id number] [facility] HCS Procedures Combined list of: 1) Procedures from Department of Veterans Affairs facilities going back up to the last 18 months, not all VA non-surgical procedures are included; 2) All procedures from the Department of Defense facilities. Procedure Procedure Type Code Date Perfomer Comments Sour e Health And Behav 09/29/19 GILLETTE, [facility] Interven, Each 17 PRERNA S Additional 15 Min Family W/ Pt [place] [address] [facility] Extracranial 16 DAVID Bilateral Arteries Bilateral Ankle orthosis, ankle 06/28/20 KERA, L1810 bl ack DoD gauntlet or similar, 11 OSMAN L aso siz e with or without small for joints, support of prefabricated, the ankle. tqz-lgd-cweel lace up. cost $14.44 Fiberglass Finisher Educ 06/28/20 KERA, [facility] Orthotics Training 11 OSMAN L Each Additional 15 Minutes HEALTH AND BEHAVIOR 09/28/19 [facility] INTERVENTION, EACH 15 17 MINUTES, EQED-ZN-EOXO; FAMILY (WITH THE PATIENT PRESENT) URINALYSIS, BY DIP 07/25/20 D oD STICK/TABLET REAGENT 16 FOR BILIRUBIN, GLUCOSE, HEMOGLOBIN, KETONES, LEUKOCYTES, NITRITE, PH, PROTEIN, SPEC GRAV, UROBILINOGEN, ANYNUMBER OF CONSTITUENTS; AUTOMATED, W/ MICROSCOPY ECHOCARDIOGRAPHY,BEDOYA 07/22/20 [facility] STHORACIC,REAL-TIME W 16 IMAGE DOCUMENTATION (2D),INCLUDES M-MODE RECORDING,WHEN PERFORMED,COMPLETE,WI TH SPECTRAL DOPPLER ECHOCARDIOGRAPHY,AND W COLOR FLOW DOPPLER ECHOCARDIOGRAPHY DUPLEX SCAN OF 07/22/20 [facility] EXTRACRANIAL 16 ARTERIES; COMPLETE BILATERAL STUDY PSYCHIATRIC 07/19/20 [facility] DIAGNOSTIC EVALUATION 16 INFUSION, NORMAL 07/18/20 [facility] SALINE SOLUTION, 16 STERILE (500 ML = 1 UNIT) INJECTION, KETOROLAC 11/15/19 [facility] TROMETHAMINE, PER 15 15 MG ANKLE ORTHOSIS, ANKLE 06/28/20 DoD GAUNTLET OR SIMILAR, 11 WITH OR WITHOUT JOINTS, PREFABRICATED, RHZ-ALS-ZSBEB INFUSION, NORMAL 09/24/19 DoD SALINE SOLUTION , 11 1000 CC Social History Combined list of available smoking, tobacco, and other social history from Department of Defense 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 Social History Type Response Date Comment Source Tobacco smoking [place]-TOBACCO NEVER USED 11/29/2021 [facility] status [facility] History of tobacco [place]-TOBACCO NEVER USED 11/02/2021 [facility] use History of tobacco [place]-TOBACCO NEVER USED 02/11/2019 [facility]ULO [facility] use History of tobacco LIFETIME NON-USER OF 02/26/2018 Yen NIGHAT JeanineNat [facility] use TOBACCO History of tobacco LIFETIME NON-USER OF 02/03/2017 Yen NIGHAT [facility] use TOBACCO History of tobacco LIFETIME NON-USER OF 03/23/2016 Yen NIGHAT [facility] use TOBACCO History of tobacco LIFETIME NON-TOBACCO 11/29/2010 Yen NIGHAT [facility] use USER History of tobacco LIFETIME NON-USER OF 10/27/2008 Yen NIGHAT [facility] use TOBACCO History of tobacco LIFETIME NON-TOBACCO 06/03/2003 [facility] This section is an DoD empty social history section. Plan of Care List of future care activities from Department [facility] facilities. Additional future care activities may be listed in the Assessment and Plan section. Date/Time Care Activity Care Activity Detail Facility 06/10/2022 AMBULATORY - REHAB MEDICINE AMBULATORY - REHAB [facility] MEDICINE Advance Directives List of completed, amended, or rescinded Advance Directives on record at Department [facility] facilities. An actual copy of the Directive is not included. Date Advance Directive Provider Source 12/17/2021 STATE-AUTHORIZED PORTABLE OLIVA SANDOVAL [facility] ORDERS 11/30/2021 ADVANCE DIRECTIVE [facility] 11/30/2021 STATE-AUTHORIZED PORTABLE [facility]UV [facility] ORDERS 06/03/2013 ADVANCE DIRECTIVE SAIRA DURÁN [facility]
--- OUTSIDE RECORDS SUMMARY | 2022-06-10 13:00 | XMS_ITS ---
:1960 Author Organization [facility] [facility] Address [address] [place], [place] [address] [address] Care Team Providers Name Role Phone RubénRonnaomerJerod Unavailable Unavailable PROBLEMS Type Condition ICD9-CM Code [id number] Code Onset Condition SNO MED Code Dates Status Problem Sprain and 845.10 Active 43256584 strain of unspecified site of foot Problem Unspecified 389.00 Active 96790028 conductive hearing loss Problem Lumbar sprain 847.2 Active 528277 008 and strain Problem Contusion of 920 Active 8943474 09 face, scalp, and neck except eye(s) ALLERGIES Substance Reaction Event Type Date Status aspirin Unknown Non Drug Allergy Apr, Active Motrin Unknown Drug Allergy Apr, Active ENCOUNTERS Encounter Location Date Diagnosis [employer] [address] [facility] Apr, [facility] [address] [place] [address] [employer] [facility] [address] [facility] Apr, Co ntusion of face, [facility] [place] scalp, an d neck except eye(s) 920 ; Lum bar sprain and strai n 847.2 ; Sprain and str ain of unspecified site of foot 845.10 ; Unspeci fied conductive heari ng loss 389.00 and Plant ar faciitis 728.71 [employer] Elsi MELENDEZ Debbie [facility] Apr, [facility] [place] [address] [employer] [address] Mar, [facility] [place] [address] [employer] [address] Mar, Co ntusion of face, [facility] [place] scalp, an d neck except [address] eye(s) 920 ; Lum bar sprain and strai n 847.2 ; Sprain and str ain of unspecified site of foot 845.10 ; Unspeci fied conductive heari ng loss 389.00 and Plant ar faciitis 728.71 [employer] [address] Dec, [facility] [place] [address] [employer] [address] Dec, [facility] [place] [address] [employer] [address] Dec, [facility] [place] [address] [employer] [address] Dec, [facility] [place] [address] [employer] [address] Dec, [facility] [place] [address] [employer] [address], [facility] [place] [address] [employer] [address], [facility] [place] [address] [employer] [address] Sep, [facility] [place] [address] [employer] [address] Sep[facility] [address] [place] [address] [employer] [address] Aug, [facility] [place] [address] [employer] [address] Aug, [facility] [place] [address] [employer] [address] Jul, Co ntusion of face, [facility] [place], [place] scalp, an d neck except eye(s) 920 ; Lum bar sprain and strai n 847.2 ; Sprain and str ain of unspecified site of foot 845.10 ; Unspeci fied conductive heari ng loss 389.00 and Plant ar faciitis 728.71 [employer] [address] Jun, [facility] [place] [address] [employer] [address], [facility] [place] [address] [employer] [address] May, [facility] [place] [address] [employer] [address] Apr, [facility] [place] [address] [employer] [address] Mar, [facility] [place] [address] [employer] [address] Mar, [facility] [place] [address] [employer] [address] Mar, [facility] [place] [address] [employer] [address] Mar, Co ntusion of face, [facility] [place] scalp, an d neck except eye(s) 920 ; Lum bar sprain and strai n 847.2 ; Sprain and str ain of unspecified site of foot 845.10 ; Unspeci fied conductive heari ng loss 389.00 and Plant ar faciitis 728.71 [employer] [address] January, [facility] [place] [address] [employer] [address] January, Co ntusion of face, [facility] [place] scalp, an d neck except eye(s) 920 ; Lum bar sprain and strai n 847.2 ; Sprain and str ain of unspecified site of foot 845.10 and Unspe cified conductive heari ng loss 389.00 [employer] [address] January, [facility] [place] [address] [employer] [address] January, [facility] [place] [address] [employer] [address] Dec, Co ntusion of face, [facility] [place] scalp, an d neck except eye(s) 920 and L umbar sprain and strai n 847.2 [employer] [address] Dec, [facility] [place] [address] [employer] [address] Dec, [facility] [place] [address] [employer] [address] Dec, [facility] [place] [address] [employer] [address] Nov, [facility] [place] [address] [employer] [address] Nov, [facility] [place] [address] [employer] [address] Nov, Co ntusion of face, [facility] [place] scalp, an d neck except eye(s) 920 and L umbar sprain and strai n 847.2 IMMUNIZATIONS No Known Immunizations SOCIAL HISTORY Never Assessed REASON FOR REFERRAL FUNCTIONAL STATUS PLAN OF CARE Activity Details Follow Up 4 Weeks Reason:N/A VITAL SIGNS Weight 109 lbs 2015-04-08 Weight 108 lbs 2015-03-24 Weight 111 lbs 2014-07-16 Weight 113 lbs 2014-03-20 Weight 115 lbs 2014-01-22 Weight 115 lbs 2014-01-01 Weight 115 lbs 2013-11-04 Height 60 in 2015-04-08 Height 60 in 2015-03-24 Height 60 in 2014-07-16 Height 60 in 2014-03-20 Height 60 in 2014-01-22 Height 60 in 2014-01-01 Height 60 in 2013-11-04 Temperature 96.2 degrees Fahrenheit 2015-04-08 Temperature 98.3 degrees Fahrenheit 2015-03-24 Temperature 98.7 degrees Fahrenheit 2014-07-16 Temperature 98.1 degrees Fahrenheit 2014-03-20 Temperature 98.1 degrees Fahrenheit 2014-01-22 Temperature 95.5 degrees Fahrenheit 2014-01-01 Temperature 97.2 degrees Fahrenheit 2013-11-04 Heart Rate 81 /min 2015-04-08 Heart Rate 80 /min 2015-03-24 Heart Rate 78 /min 2014-07-16 Heart Rate 79 /min 2014-03-20 Heart Rate 80 /min 2014-01-22 Heart Rate 74 /min 2014-01-01 Heart Rate 75 /min 2013-11-04 BMI 21.29 kg/m2 2015-04-08 BMI 21.09 kg/m2 2015-03-24 BMI 21.68 kg/m2 2014-07-16 BMI 22.07 kg/m2 2014-03-20 BMI 22.46 kg/m2 2014-01-22 BMI 22.46 kg/m2 2014-01-01 BMI 22.46 kg/m2 2013-11-04 Blood pressure systolic 128 mm Hg 2015-04-08 Blood pressure diastolic 78 mm Hg 2015-04-08 MEDICATIONS Medication Instructions Dosage Frequency Start End Duration Statu s Date Date Voltaren 1 % Transdermal as directed 1 MONTH Act jw apply 2g onto ea.foot bid-tid Silvadene 1 % Externally tid 1 application Apr, Active onto knee x10d to affected 2014 area PROCEDURES No Known procedures RESULTS No Results REASON FOR VISIT WALK IN . Low back pain TPL 2-21-14. , RE REFFERAL, LUMBAR, BL FOOT 3 WKS FU. Low back pain TPL 10-25-14, RE HEARING AID/CALL BACK , NURSING NOTE, NURSING NOT ONLY, NURSING NOTE , CALL BACK , LUMBAR, BLFOOT 3 WKS FU. Low back pain TPL 10-25-14, LUMBAR, BL FOOT 3 WKS FU. Low back pain TPL 10-25-13, CALL BACK, LUMBAR, BL FOOT 3 WKS FU. Low back pain TPL 10-25-14, LUMBAR, BL FOOT 3 WKS FU. Low back pain TPL 10-25-13, private tx plan/call back , LUMBAR, BL FOOT 3 WKS FU. Low back pain TPL 10-25-13, Flector Patch, Flector Patch, Low back pain TPL 10-25-13, CALL BACK , CALL BACK , FOLLOW UP VISIT RS FROM 11/25/13. TRANSFERRING CARE FROM DR BURGESS TO [facility], FOLLOW UP, NURSING NOTE RE PT, PLEASE GIVE HER A CALL BACK Insurance Providers [facility] Health Member Patient Patient Patient Patient Patient Subscriber Subscriber Subscriber Group Insurance Plan Plan Plan Plan ID Relationship Address Phone Name Date of ID Name Date of No Type Insurance Insurance Insurance Coverage to Subscriber Address Phone Name Dates TREVIN [phone] TREVIN FRAZIER 1960 [id number] NID[place] [facility] [address] [id number] [address] [facility] [address] [place] [address]
--- OUTSIDE RECORDS SUMMARY | 2022-06-10 13:00 | XMS_ITS | Clinical Summary ---
:1960 Author Organization [facility] [place] [address] Care Team Providers Name Role Phone Lucía Rivero DO Primary Care Provider [facility] Unavailable Allergies Active Allergy Reactions Severity Noted Date Comments Hnd-Xzcsqwmdzzajm-Jsdm-P Nausea And Vomiting 7 otass Aspirin Nausea Only, 06/03/2003 Dizziness, Nausea And Vomiting Beta Carotene GI Upset, Nausea And 07/03/2003 Vomiting Desmopressin Nausea Only 08/18/2009 Depends on bran d, has been taking Ibuprofen Nausea And Vomiting, High 06/03/2003 Angioedema Salicylates Nausea And Vomiting 02/02/2008 Medications Medication Sig Dispensed Refills Start End Status Date Date acetaminophen (TYLENOL) TAKE 1 TO 2 0 03/29/2 07/2 6/ Active 325 mg tablet TABLETS BY MOUTH 022 2022 FOUR TIMES A DAY NEEDED FOR PAIN *NO MORE THAN 3000MG PER DAY FROM ALL SOURCES* atorvastatin (LIPITOR) Take 0.5 Tablets 0 04/27/2 08/25/ Active 40 mg tablet by mouth once 022 2022 daily. bisacodyL (DULCOLAX) 10 INSERT 1 0 03/18/ Active mg suppository SUPPOSITORY(IES) 022 IN RECTUM EVERY 4 DAYS NEEDED FOR BOWEL MOVEMENT sennosides (SENNA) 8.6 [The details of 0 03/04/ Active mg tablet the medication 022 are not available because there are pending changes by a home health clinician.] FreeStyle Lite Strips USE 1 STRIP TO 0 Active strip CHECK GLUCOSE 022 THREE TIMES DAILY carboxymethylcellulose INSTILL 1 DROP 0 Active 0.5% 0.5 % drop IN BOTH EYES 022 ophthalmic drops FOUR TIMES A DAY FOR DRY EYES carvediloL (COREG) 3.125 [The details of 0 Active mg tablet the medication 022 are not available because there are pending changes by a home health clinician.] xgwuzmwdt-bmvfjfv-lh Place 2 Drops 0 Active sod,bulk, 88.3-11.7 % into the eye(s). 022 powd cholecalciferol, Vitamin [The details of 0 Active D3, 5,000 unit tab the medication tablet are not available because there are pending changes by a home health clinician.] clopidogreL (PLAVIX) 75 [The details of 0 Active mg tablet the medication 015 are not available because there are pending changes by a home health clinician.] Cranberry 500 mg cap Take 1 Tablet by 0 Active mouth once 022 daily. dextrose (GLUTOSE) 40 % TAKE 15 GRAMS BY 0 Active oral gel MOUTH NEEDED 022 FOR LOW BLOOD SUGAR - RECHECK BLOOD SUGAR 15 MINUTES AFTER ADMINISTRATION glucose 4 gram chewable [The details of 0 Active tablet the medication 022 are not available because there are pending changes by a home health clinician.] empagliflozin TAKE ONE TABLET 0 Active (JARDIANCE) 10 mg tablet (10MG) BY MOUTH 022 EVERY MORNING TO CONTROL BLOOD SUGAR ferrous sulfate, 65 mg [The details of 0 Active elemental, tablet the medication 022 are not available because there are pending changes by a home health clinician.] hydrocortisone 1 % cream [The details of 0 Active the medication 022 are not available because there are pending changes by a home health clinician.] FreeStyle Lancets 28 USE 1 TO CHECK 0 Active gauge misc GLUCOSE ONCE 022 DAILY DIRECTED levoFLOXacin (LEVAQUIN) 750 mg. 0 Active 750 mg tablet 022 levothyroxine [The details of 0 Active (Synthroid) 75 mcg the medication 022 tablet are not available because there are pending changes by a home health clinician.] magnesium oxide (MAG-OX [The details of 0 Active 400) 400 mg tablet the medication 022 are not available because there are pending changes by a home health clinician.] metFORMIN (GLUCOPHAGE [The details of 0 Active XR) 500 mg the medication 022 Extended-Release tablet are not available because there are pending changes by a home health clinician.] mineral APPLY A SMALL 0 Active oil/petrolatum,white AMOUNT TO BOTH 022 (WHITE EYES AT BEDTIME PETROLATUM-MINERAL OIL OPHT) ja-cj-oq2-poo-ase-wvad-l Take 1 Capsule 0 Active ut-inga (Ocuvite Adult 50 by mouth once 022 Plus) 250 mg (90 mg-160 daily. mg) cap multivitamin (MVI) Take 1 Tablet by 0 Active tablet mouth once daily. mirtazapine (REMERON) 30 30 mg. 0 Active mg tablet 022 nystatin (MYCOSTATIN) APPLY THIN LAYER 0 Active cream TOPICALLY TWICE A DAY NEEDED EXTERNAL USE ONLY FOR SKIN BREAKDOWN/YEAST RASH Fovzf-5-WKA-EPA-Fish Oil [The details of 0 Active 1,000 mg (120 mg-180 mg) the medication 021 cap are not available because there are pending changes by a home health clinician.] polyethylene glycol TAKE 17 GRAMS BY 0 / Active (MIRALAX; GLYCOLAX) 17 g MOUTH EVERY DAY 2022 powder for solution FOR CONSTIPATION *MIX IN 4 TO 8 OUNCES OF LIQUID DIRECTED*USE COVER TO MEASURE POWDER* TAKE EVERY DAY. CAN TAKE 2ND DOSE IF NO BM FOR 24 HOURS. polyvinyl alcohol INSTILL 2 DROPS 0 Active (ARTIFICAL TEARS) 1.4 % IN BOTH EYES 022 ophthalmic solution FOUR TIMES A DAY NEEDED FOR DRY EYES predniSONE (DELTASONE) 5 Take 1 Tablet by 0 04/28/ Active mg tablet mouth once daily 2022 with a meal. risperiDONE (RISPERDAL) Take 0.5 Tablets 0 04/28/ Active 0.5 mg tablet by mouth at 2022 bedtime. thiamine (VITAMIN B1) Take 1 Tablet by 0 Active 100 mg tablet mouth once 021 daily. glucagon (Glucagon INJECT 1MG 1 Each 3 Active Emergency Kit, human,) 1 INTRAMUSCULAR 022 mg injectionIndications: NEEDED FOR LOW Type 2 diabetes mellitus BLOOD SUGAR; MAY without complication, REPEAT IN 15 with long-term current MINUTES IF use of insulin (HC) NEEDED ondansetron (ZOFRAN ODT) Place 1 Tablet 10 Tablet 0 Active 4 mg disintegrating (4 mg) on the 022 tabletIndications: tongue every 8 Nausea and vomiting, hours if needed unspecified vomiting for type Nausea/Vomiting. trimethoprim-sulfamethox Take 1 Tablet by 0 06/10/ Active azole, 160-800 mg, mouth two times 2021 (BACTRIM DS, SEPTRA DS) daily. tab glucagon (Gvoke HypoPen Inject 1 mg 1 Each 3 Active 2-Pack) 1 mg/0.2 mL subcutaneous. 022 atInIndications: Type 2 INJECT 1MG diabetes mellitus INTRAMUSCULAR without complication, NEEDED FOR LOW with long-term current BLOOD SUGAR; MAY use of insulin (HC) REPEAT IN 15 MINUTES IF NEEDED CINNAMON BARK ORAL Take 2,000 mg by 0 Active mouth once daily. desmopressin acetate Inhale 10 mcg/L 0 Active (DESMOPRESSIN NASL) into affected nostril(s) once daily. continuous glucose 1 Each one time. 0 Active monitor SENSOR KIT (FreeStyle Shama 2 Sensor) Nut.Tx.Gluc.Intol,Lac-Fr 8 oz once daily. 0 Active ee,Soy (Glucerna Shake) liqd insulin lispro, U-100, Use 1 unit as 3 mL 3 Active (HUMALOG NATHEN KWIKPEN) needed: Sliding 022 100 unit/mL inph Scale: 200-240 penIndications: Type 2 give 1 unit, diabetes mellitus 241-280 give 2 without complication, units, 281-320 with long-term current give 3 units, use of insulin (HC) 321-360 give 4 units, 361-400 give 5 units, over 400 contact provider. glucagon 1 mg injection INJECT 1MG 0 06/10 / Discontinued INTRAMUSCULAR 022 2021 (Du plicate NEEDED FOR LOW thera py BLOOD SUGAR; MAY (E- cancel not REPEAT IN 15 sent)) MINUTES IF NEEDED insulin aspart, U-100, INJECT 3 UNITS 0 / Discontinued (NOVOLOG FLEXPEN) 100 SUBCUTANEOUSLY (*Med unit/mL (3 mL) pen THREE TIMES A complete/Regim DAY FOR DIABETES en (REFRIGERATE complet e/Level UNUSED PENS. PEN of care GOOD FOR 28 DAYS lorenza nge) ONCE USED. DO NOT REFRIGERATE PENS IN USE.) insulin glargine, U-100, INJECT 20 UNITS 0 08/17/2 05/26/ Discontinued 100 unit/mL (3 mL) pen SUBCUTANEOUSLY (*Med ONCE DAILY FOR compl ete/Regim DIABETES en (REFRIGERATE complet e/Level UNUSED PENS. of care IN-USE PENS GOOD lorenza nge) FOR 28 DAYS. DO NOT REFRIGERATE IN-USE PENS.) Cinnamon Bark (Cinnamon) Take 2,000 mg by 0 12/30/2 Discontinued 500 mg capsule mouth once daily 2021 (*Medication before a meal. adjus tment) insulin lispro, U-100, Inject 1 unit 0 2 Discontinued (HUMALOG NATHEN KWIKPEN) subcutaneous. (Reorder 100 unit/mL inph pen (E-cancel not sent)) insulin lispro, U-100, [The details of 3 mL 3 1 / Discontinued (HUMALOG NATHEN KWIKPEN) the medication 2021 (Reorder 100 unit/mL inph are not (E- cancel not penIndications: Type 2 available sent)) diabetes mellitus because there without complication, are pending with long-term current changes by a use of insulin (HC) home health clinician.] glucagon (Gvoke HypoPen Inject 1 Each 0 05/31/2 06/01/ Discontinued 2-Pack) 1 mg/0.2 mL subcutaneous. 2021 (*Medication atInIndications: Type 2 adjustment) diabetes mellitus without complication, with long-term current use of insulin (HC) metFORMIN (GLUCOPHAGE) Take 500 mg by 0 / Discontinued 500 mg tablet mouth two times 2021 (*Medication daily. 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 Left-sided temporal and cerebellar strok e August 25 resulting in some expressive aphasia and right-sided weakness Frontotemporal dementia 05/26/2022 Cerebrovascular accident (CVA) 05/26/2022 Severe protein-calorie malnutrition 05/26/2022 Absence of bladder continence 05/26/2022 Complete fecal incontinence 05/26/2022 Stage 3 chronic kidney disease 05/26/2022 HTN (hypertension) 05/26/2022 Hyperlipidemia 05/26/2022 Encounters Date Type Specialty Care Team Description 06/10/2022 Telephone Lucía Rivero DO missed visit 06/10/2022 Orders Only Lucía Rivero DO <No sca ns attached> 06/09/2022 Home Care Visit Lizzette Horta, PT PT - OAS IS RESUMPTION OF CARE 06/09/2022 Telephone Lizzette Horta PT Home Care ( requesting verbal orders) 06/09/2022 Travel 06/07/2022 Telephone Lucía Rivero DO [facility] 06/06/2022 Home Care Visit Lizzette Horta, PT PT - OAS IS TRANSFER 06/06/2022 Home Care Visit Lizzette Horta PT CARE [facility]ANQUET STEWARDESS RDINATION 06/06/2022 Home Care Visit Lizzette Horta PT CARE [facility] [employer]ARD[facility] RDINATION 06/03/2022 Home Care Visit Dorothy Cotton OT - MISSED VISIT GOMEZ 06/03/2022 Home Care Visit Mitali Vance LISW PRODUCTION TROUBLESHOOTER - CASE COMMUNICATION 06/01/2022 Home Care Visit Kathy Jha, OT OT - INITIAL ASSESSMENT 06/01/2022 Telephone Kathy Jha OT Home Ca re (Req. auth. for further OT visi ts.) 06/01/2022 Home Care Visit Mindi Navarro ECONOMIC ANALYSIS DIRECTOR - MISSED VISIT 05/31/2022 Home Care Visit Lizzette Horta PT PT - BRUNA E VISIT 05/31/2022 Home Care Visit Maykel Ferro SN - INITIAL SUBJECT SCIENTIFIC RESEARCH 05/31/2022 Home Care Visit Lizzette Horta PT CARE [facility] [employer] RDINATION 05/31/2022 Telephone Lucía Rivero DO [facility] 05/31/2022 Travel 05/31/2022 Telephone Lucía Rivero DO Home Ca re (verbal orders ) 05/27/2022 Home Care Visit Lizzette Horta PT PT - OAS IS START OF CARE 05/27/2022 Telephone Lizzette Horta PT Home Care ( Requesting verbal orders; medication discrepancies) 05/27/2022 Travel 05/26/2022 Telephone Lucía Rivero DO Prior A uthorization (insulin lispro , U-100, (HUMALOG NATHEN KWIKPEN) 100 unit/mL inp h pen DENIED) 05/26/2022 Telephone Lucía Rivero DO Vomitin g 05/26/2022 Telephone Lucía Rivero DO Medicat ion Management (insulin lispro , U-100, (HUMALOG NATHEN KWIKPEN) 100 unit/mL inp h pen, glucagon (Gluca [place] Emergency Kit, human,) 1 mg injection); Con cerns (Throwing Up/) 05/25/2022 Office Visit Lucía Rivero DO [facility] 05/25/2022 Travel 05/16/2022 Office Visit Rhonda Leon, Hospit al F/U [facility] 05/16/2022 Travel from Last 3 Months Immunizations Name Administration Dates Next Due COVID-19 vaccine (Moderna 12/08/2021, 11/02/2021 100mcg/0.5mL) PF, MDV Influenza A (H1N1), Inactivated 08/24/2009 Influenza Virus, Unspecified 08/01/2016, 05/21/2014, 011, 07/23/2010, 06/24/2009, 06/04/2008 Pneumococcal Poly,23-Valent 02/03/2017 (Pneumovax) Tdap 11/02/2021 Zoster (Shingrix-RZV, recombinant) 01/24/2022, 11/23/2021 Social History Tobacco Use Types Packs/Day Years Used Date Never Smoker Smokeless Tobacco: Never Used Tobacco Cessation: Counseling Given: Yes Alcohol Use Standard Drinks/Week Comments Not Currently 0 (1 standard drink = 0.6 oz pure alcoho l) Sex Assigned at Date Recorded Not on file COVID-19 Exposure Response Date Recorded In the last 10 days, have you been in contact with No / Unsu re 06/09/2022 2:56 PM CDT someone who was confirmed or suspected to have Coronavirus/COVID-19? Obstetrics History Para Term AB IAB SAB Ectopic Multiple Living Live Births 2 Last Filed Vital Signs Vital Sign Reading Time Taken Comments Blood Pressure 112/78 06/09/2022 3:18 PM CDT Pulse 95 06/09/2022 3:14 PM CDT Temperature 36.1 ??C (97 ??F) 06/09/2022 3:14 PM CDT Respiratory Rate 15 06/09/2022 3:14 PM CDT Oxygen Saturation 97% 06/09/2022 3:14 PM CDT Inhaled Oxygen Concentration - - Weight - - Height - - Body Mass Index - - Plan of Treatment Upcoming Encounters Date Type Specialty Care Team Description 06/13/2022 Home Care Visit Lizzette Horta, PT [address] [place], [place] [address] (Wo rk) 06/20/2022 Home Care Visit Lizzette Horta, PT [address] [place], [place] [address] (Wo rk) 06/27/2022 Home Care Visit Lizzette Horta, PT [address] [place], [place] [address] (Wo rk) 07/01/2022 Orders Only Lab, [facility] 07/01/2022 Office Visit Lucía Rivero , DO [address] [place] [address] (Wo rk) 07/04/2022 Home Care Visit Lizzette Horta, PT [address] [place], [place] [address] (Wo rk) 07/11/2022 Home Care Visit Lizzette Horta, PT [address] [facility] [place], [place] [address] (Wo rk) 07/18/2022 Home Care Visit Lizzette Horta, PT [address] [facility] [place], [place] [address] (Wo rk) Health Maintenance Due Date Last Done Comments Depression screening for age 12+ 1973 BMI (ht and wt on same day) for 11/16/1979 age 18+ Hepatitis C screening for age 0311/16/1979 18-79 Pap test for age 21-65 1982 Colonoscopy through age 75 2006 Mammogram for age 45-75 2006 Pneumococcal series for age 19-64 02/03/2018 02/03/2017 (2 - PCV) Lipids for age 45-75 04/23/2020 04/23/2015 (Verified in Car e Everywhere or Patient Record) COVID-19 vaccine series (3 - 01/05/2022 12/08/2021, 022 Moderna risk series) Influenza for age 50-64 05/05/2022 08/01/2016, 05/21/2014, 06/22/2011, Additional history exists Tetanus booster 11/03/2031 11/02/2021 Tdap Completed 11/02/2021 Zoster (shingles) series for age Completed 01/24/2022, 50+ Results Not on filefrom Last 3 Months Insurance Payer Benefit Plan / Subscriber ID Effective Dates Phone Addre ss Type Group MEDICARE - PB MEDICARE PB [id number] 2007-Presen ATTN : CLAIMS USE ONLY ONLY t [address] [place] [address] MEDICARE PPS HC MEDICARE [id number] 2007-Presen [address] X 2019 [address] [place] [address] MEDICAID [place] MEDICAID [id number] 2021-Mckenna [address] [place] [address] Oneyda Guerrero Personal/Family Self 1960 [address] [phone] [facility] [place] ([place]) [phone] Advance Directives Documents on File Type Date Recorded Patient Welcome Center Attendant Explanati on POLST 05/16/2022 Care Teams Shrink Pit Supervisor Relationship Specialty Start Date End Date Lucía Rivero DO PCP - General Family Practice 05/26/22 [address] [place] [address] Heath Gustavus [facility] 05/26/22 [facility] [place] [address]
--- OUTSIDE RECORDS SUMMARY | 2022-06-10 13:01 | XMS_ITS | Encounter Summary ---
:1960 Author Organization [facility] Address [address] [place] [id number] Care Team Providers Name Role Phone Elsewhere, Pcp Primary Care Provider Unavailable Reason for Referral Outpatient (Routine) - Authorized Specialty Diagnoses / Procedures Referred By Contact Refer red To Contact Endocrinology Montserrat Miranda M.D. [facility] [address] [place] [phone] Referral ID Status Reason Start Date Expiration Date Visits V isits Requested Authorized [id number] Authorized 06/08/2022 06/07/2025 1 1 Encounter Details Date Type Department Care Team Description 06/08/2022 Orders Only Division of Endocrinology in Dianna Miranda [place], [place] Ruth Ann [address] [facility] [address] [place], [place] [phone] [place], [place] [phone] (Wo rk) Social History Tobacco Use Types Packs/Day Years Used Date Smoking Tobacco: Never Smokeless Tobacco: Never Alcohol Use Standard Drinks/Week Comments Never 0 (1 standard drink = 0.6 oz pure alcoho l) Sex Assigned at Date Recorded Not on file documented as of this encounter Plan of Treatment Upcoming Encounters Date Type Specialty Care Team Description 07/01/2022 Clinical Communication Admitting/Central Scheduling 07/04/2022 Comprehensive Visit Neurology Zelalem Nicole M.D. [address] [place] [phone] 07/13/2022 Office Visit Gynecology Lizy Fabian M.D. [address] [place] [address] Scheduled Referrals Name Type Priority Associated Order Schedule Diagnoses Endocrinology office Outpatient Referral Routine Expected: visit (clinic) 07/09/2022 (Approximate), Expires: 09/08/2023 documented as of this encounter Visit Diagnoses Not on filedocumented in this encounter Care Teams Sponge Buffer Relationship Specialty Start Date End Date Elsewhere, Pcp PCP - General Internal Medicine 06/03/22 documented as of this encounter
--- OUTSIDE RECORDS SUMMARY | 2022-06-10 13:01 | XMS_ITS | Clinical Summary ---
:1960 Author Organization [facility] Address [address] [place] [address] Care Team Providers Name Role Phone Elsewhere, Pcp Primary Care Provider Unavailable Source Comments Patient records contain information from all sites at [facility]. For routine questions regarding patient records, call [phone] during business hours, M-F 8:00 AM - 5:00 PM Central Time. Record requests for emergency care only can be directed to [phone] at any time.[facility] Allergies Active Allergy Reactions Severity Noted Date Comments Aspirin Nausea Only, GI intolerance 06/03/2003 Beta Carotene GI intolerance 07/03/2003 Desmopressin Nausea Only 08/18/2009 Depends on bran d, has been taking Ibuprofen GI intolerance, Nausea And High 06/03/2003 Vomiting, Swelling Medications Medication Sig Dispensed Refills Start End Status Date Date clopidogreL (PLAVIX) 75 TAKE ONE TABLET 0 12/01/ Active mg tablet BY MOUTH EVERY 2022 INDEFINITELY TO PREVENT BLOOD CLOTS AND STROKE. desmopressin (DDAVP) 10 Administer 10 0 2 / Active mcg/spray (0.1 mL) nasal mcg into one 021 20 23 spray nostril 3 (three) times a week. 1 spray in each nostril three times a week (Tuesdays, and Sundays in the evening). omega 1-tpo-tlm-fish oil Take 1,000 mg 0 Active 1,000 mg (120 mg-180 mg) by mouth daily. 021 capsule levothyroxine 75 mcg 6 (six) 0 A ctive (SYNTHROID, LEVOTHROID) times a week. 022 75 mcg tablet Takes at bedtime on an empty stomach. Every day except on Sundays polyethylene glycol TAKE 17 GRAMS 0 11/30/ Active (MIRALAX) 17 gram/dose BY MOUTH EVERY oral powder DAY NEEDED FOR CONSTIPATION *MIX IN 4 TO 8 OUNCES OF LIQUID DIRECTED*USE COVER TO MEASURE POWDER* atorvastatin (LIPITOR) Take 1 tablet 0 Active 20 mg tablet by mouth daily. thiamine (VITAMIN B1) Take 1 tablet 0 Active 100 mg tablet by mouth daily. 021 bisacodyL (DULCOLAX) 5 TAKE TWO 0 2 11/30/ Active mg EC tablet TABLETS BY 2022 MOUTH EVERY DAY NEEDED FOR CONSTIPATION glucagon (GlucaGen) 1 INJECT 1MG 0 Active mg/mL injection INTRAMUSCULAR 022 NEEDED FOR LOW BLOOD SUGAR; MAY REPEAT IN 15 MINUTES IF NEEDED calcium Take 650 mg by 0 Activ e carbonate/vitamin D3 mouth daily. 022 (CALCIUM 600 + D,3, ORAL) vbbkeqpog-dojrfab-wp Administer 2 0 Active sod,bulk, 88.3-11.7 % drops into both 022 powder eyes daily. carvediloL (COREG) 3.125 Take 3.125 mg 0 Active mg tablet by mouth 2 022 (two) times a day with meals. cholecalciferol, vitamin Dissolve 125 0 / Active D3, 125 mcg (5,000 unit) mcg in the 2022 tablet,disintegrating mouth daily. cranberry 500 mg capsule Take 1 tablet 0 Active by mouth daily. 022 dextrose 15 gram/33 gram Take 15 g by 0 / Active gel in packet mouth as needed 2022 (hypoglycemia). ferrous sulfate 325 mg Take 325 mg by 0 / Active (65 mg iron) tablet mouth daily. 2022 nut.tx.gluc Take 4 oz by 0 Activ e intol,lf,soy-fiber mouth daily. 022 (Glucerna 1 Kristian) 0.04-1 gram-kcal/mL liquid magnesium Take 1 capsule 0 03/30/ Activ e oxide,aspartate,citr 400 by mouth daily. 2022 mg magnesium capsule Holding due to diarrhea mirtazapine (REMERON Dissolve 30 mg 0 Active LAMBERTO-TAB) 30 mg in the mouth at 022 disintegrating tablet bedtime. nx-hv-ny8-fsc-ygh-upyr-l Take 1 capsule 0 Active ut-inga (Ocuvite Adult 50 by mouth daily. 022 Plus) 250 mg (90 mg-160 mg) capsule risperiDONE (RisperDAL Dissolve 0.25 0 Active M-TABS) 0.25 mg mg in the mouth 022 disintegrating tablet at bedtime. sennosides (SENOKOT) 8.6 Take 17.2 mg by 0 Active mg tablet mouth every 022 other day. carboxymethylcellulose Administer 1 0 03/28/10 11/ 6/ Active (REFRESH PLUS) 0.5 % drop into both 022 2022 ophthalmic solution eyes 4 (four) times a day. hydrocortisone (CORTAID) Apply 1 0 Active 1 % cream application 022 topically as needed. mineral Administer 1 0 Active oil/petrolatum,white drop into 022 (WHITE affected eye(s) PETROLATUM-MINERAL OIL daily. Both OPHT) eyes glucagon 1 mg Use as directed 1 each 3 Active injectionIndications: for low blood 022 Diabetes Mellitus Drug sugar. Or Chemical Induced With Other Complication (HCC) cinnamon bark 500 mg Take 500 mg by 0 Active capsule mouth daily. nystatin (MYCOSTATIN) Apply 1 0 Active 100,000 unit/gram cream application topically every other day. Apply to perineal area for skin breakdown acetaminophen (TYLENOL) Take 325 mg by 0 Active 325 mg tablet mouth every 4 (four) hours as needed for pain. ondansetron ODT Dissolve 1 20 tablet 0 Act jw (ZOFRAN-ODT) 4 mg tablet (4 mg 022 disintegrating tablet total) in the mouth every 8 (eight) hours as needed for nausea or vomiting. insulin aspart U-100 Inject based on 15 mL 0 Active (NovoLOG FlexPen) 100 correction 022 unit/mL (3 mL) injection scale. If blood sugar is 200-240 give 1 unit, 241-280 give 2 units, 281-320 give 3 units, 321-360 give 4 units, 361-400 give 5 units. metFORMIN XR Take 2 tablets 120 tablet 0 07/08/ A ctive (GLUCOPHAGE-XR) 500 mg (1,000 mg 2021 24 hr tablet total) by mouth 2 (two) times a day with meals. Please start taking 500 mg every morning for 1 week. If you tolerate this, please increase to 500 mg every morning and 500 mg every evening for 1 week. If you tolerate this, please increase to 1000 mg every morning and 500 mg every evening. If you tolerate this, please increase to 1000 mg every morning and 1000 mg every evening. If you develop side effects (nausea, diarrhea), please reduce to the dose of metformin that you were able to tolerate. predniSONE (DELTASONE) 5 Take 1 tablet 0 Active mg tablet (5 mg total) by 022 mouth daily. zinc sulfate (ZINCATE) Take 1 capsule 14 capsule 0 1 / Active 220 (50 mg zinc) capsule (220 mg total) 2021 by mouth daily with breakfast for 14 days. carvediloL (COREG) 6.25 Take 1 tablet 0 / Discontinued mg tablet by mouth daily. 2021 (Err or) cholecalciferol, vitamin TAKE FIVE 0 05/14 / Discontinued D3, 25 mcg (1,000 Unit) TABLETS (125 016 202 2 (Error) tablet MCG) BY MOUTH EVERY DAY (VITAMIN D) insulin aspart U-100 Inject 1-2 0 06/07/ Discontinued (NovoLOG FlexPen) 100 Units under the 021 20 22 (Reorder) unit/mL (3 mL) injection skin 3 (three) times a day. If glucose greater than 250 insulin glargine (Lantus INJECT 5 UNITS 0 06/03/ Discontinued Solostar U-100 Insulin) UNDER THE SKIN 021 2 022 (Error) 100 unit/mL (3 mL) EVERY DAY FOR injection DIABETES -DISCARD PEN 28 DAYS AFTER INITIAL USE predniSONE (DELTASONE) 5 0 06/08 / Discontinued mg tablet 022 2021 (Reorder) clopidogreL (PLAVIX) 75 Take 75 mg by 0 / Discontinued mg tablet mouth daily. 022 2021 (Error) insulin aspart U-100 Apply 2 Units 0 05/15 / Discontinued (NovoLOG) 100 unit/mL topically 2 2021 (Stop Taking injection (two) times a at Dis charge) day. FreeStyle Lite Strips 3 test by other 0 / Discontinued strips route daily. 2021 (Error) empagliflozin Take 10 mg by 0 06/03/ Di scontinued (JARDIANCE) 10 mg tablet mouth daily. (Error) metFORMIN XR Take 1,000 mg 0 06/08/ Dis continued (GLUCOPHAGE-XR) 500 mg by mouth daily. (Reorder) 24 hr tablet levoFLOXacin (LEVAQUIN) Take 1 tablet 14 tablet 0 / Discontinued 750 mg tablet (750 mg total) 2021 ( Side effects) by mouth every morning before breakfast for 14 days. insulin lispro (HumaLOG Inject 1 Units 3 mL 1 / Discontinued Junior Robles U-100) under the skin (Stop Taking 100 unit/mL as needed at Disch arge) injectionIndications: (based on Diabetes Mellitus Drug glucose Or Chemical Induced With readings). Other Complication (HCC) sulfamethoxazole-trimeth Take 1 tablet 30 tablet 0 0 06/03/ Discontinued oprim (Bactrim DS) by mouth 2021 (Error) 800-160 mg per tablet (two) times a day for 15 days. 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 06/04/2022 Orders Only Endocrinology Leeroy Nair M.D. 06/03/2022 Hospital Encounter Guzamn, Failure T o Thrive Adult (Primary Dx); - Bryce Dial, Decline Funct ional Status [R53.81 (ICD-10-CM)]; 06/08/2022 Ruth Ann Stroke Cerebrovascular Accident Personal History Bryce Burnett M.D. Costello, Meaghan C, M.D. 06/03/2022 Comprehensive Infectious Lizy Fabian Infection Ur inary Tract; Visit Diseases Ruth Ann Solorzano Endometritis Monika Martinez M.D. 06/03/2022 Clinical Endocrinology Leeroy Nair M.D. 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 05/26/2022 Clinical Gynecology Lizy Fabian M.D. 05/25/2022 Community Orders Glendy, Infarction Cerebral (HCC) (Primary Dx); Ruth Ann Ruggiero Personal Histor y Of Other Mental And Behavioral Disorders; Panhypopituitar ism (HCC); Neoplasm Unspec ified Behavior Brain (HCC); Other Specified Diabetes Mellitus Without Complications (HCC) 05/25/2022 Clinical Gynecology Lizy Fabian M.D. 05/23/2022 Hospital Encounter Radiology Lizy Fabian Abnorma l Ultrasound Endometrium; Ruth Ann Solorzano Infection Urina ry Tract 05/23/2022 Comprehensive Endocrinology Lizy Fabian Diabetes Me llitus Drug Or Chemical Induced With Other Complication (HCC) (Primary Dx); Visit Ruth Ann Solorzano Infection Urinary Tract; Leeroy Nair Endometrdeepa Dial M.D. 05/23/2022 Documentation Social Work Felisa Castellanos L.I.C.S.W., M.S.W. 05/20/2022 Clinical Social Work Nani Guaman L.G.S.WNat, M.S.W. 05/19/2022 Clinical Social Work Deniz, Communication Sandi Walker M.S.W. 05/18/2022 Orders Only Gynecology Lizy Fabian Infection Uri nary Tract (Primary Dx); Ruth Ann Solorzano Endometritis 05/18/2022 Clinical Gynecology Lizy Fabian M.D. 05/17/2022 Clinical Acute Care Dontrell, Pre-visit Testi ng Communication Frandy Dial M.D., Orders M.B.A. 05/17/2022 Clinical Acute Care Dontrell, Pre-visit Testi ng Communication Frandy Dial M.D., Orders M.B.A. 05/13/2022 Hospital Encounter Smith, Abelino Ortegai ty (Primary Dx); Cristina Solorzano M.D., Ph.D. Endometritis; 05/15/2022 Randall Frausto Change Mental Status; Ruth Ann Giron Infection Urina ry Tract; Abnormal Ultras ound Endometrium; Incontinence Ur inary 05/13/2022 Clinical Gynecology Lizy Fabian M.D. 05/12/2022 Orders Only Obstetrics and Lizy Fabian Gynecology Ruth Ann Solorzano 05/12/2022 Clinical Gynecology Lizy Fabian M.D. 05/10/2022 Comprehensive Gynecology Lizy Fabian Abnormal Ult rasound Endometrium (Primary Dx); Visit Ruth Ann Solorzano Diabetes Mellit us Drug Or Chemical Induced With Other Complication (HCC); Incontinence Ur inary; Unspecified Sym ptoms And Signs Involving Cognitive Functions Following Unspecified Cerebrovascular Disease; Tumor Brain (HC C); Infection Urina ry Tract from Last 3 Months Family History Relation Name Status Comments Father Mother Alive Social History Tobacco Use Types Packs/Day Years Used Date Smoking Tobacco: Never Smokeless Tobacco: Never Tobacco Cessation: Counseling Given: Not Answered Alcohol Use Standard Drinks/Week Comments Never 0 (1 standard drink = 0.6 oz pure alcoho l) Sex Assigned at Date Recorded Not on file Last Filed Vital Signs Vital Sign Reading Time Taken Comments Blood Pressure 146/78 06/08/2022 1:13 PM CDT Pulse 77 06/08/2022 1:13 PM CDT Temperature 36.5 ??C (97.7 ??F) 06/08/2022 1:13 PM CDT Respiratory Rate 16 06/08/2022 1:13 PM CDT Oxygen Saturation 98% 06/08/2022 1:13 PM CDT Inhaled Oxygen Concentration - - Weight 43.3 kg (95 lb 7.4 oz) 06/08/2022 8:00 AM CDT Height 149.9 cm (4' 11.02) 06/04/2022 3:15 PM CDT Body Mass Index 19.27 06/04/2022 3:15 PM CDT Plan of Treatment Upcoming Encounters Date Type Specialty Care Team Description 07/01/2022 Clinical Communication Admitting/Central Scheduling 07/04/2022 Comprehensive Visit Neurology Zelalem Nicole M.D. [address] [place] [id number] 07/13/2022 Office Visit Gynecology Lizy Fabian M.D. [address] [place] [phone] Health Maintenance Due Date Last Done Comments CT Colonography 1960 Cervical Cancer Screening 1960 Cologuard 1960 Colonoscopy 1960 Colorectal Cancer Screening 1960 Diabetic Office Visit with Foot 1961 Exam Dilated Eye Exam 1961 FIT 1960 HIV Screening 1960 Hepatitis B Vaccines (1 of 3 - 1960 3-dose series) Hepatitis C Screening 1960 Lipid (Cholesterol) Screening 1960 Mammogram 1960 Urine Albumin 1960 Pneumococcal vaccine (0-64 years) 02/03/2018 02/03/2017 (2 - PCV) Depression Screening (Annual 09/04/2021 PHQ-2) COVID-19 Vaccine (3 - Booster for 02/02/2022 12/08/2021, Moderna series) Influenza Vaccine (#1) 2022 08/01/2016, 08/01/2016, 05/21/2014, Additional history exists Hemoglobin A1C 09/04/2022 06/04/2022, 05/14/2022 Office Visit for Blood Pressure 12/14/2022 12/14/2021 Check / Re-check Thyroid Stimulating Hormone (TSH) 06/04/2023 06/04/2022, test for thyroid function Creatinine Level 06/07/2023 06/07/2022, 06/06/2022, 06/05/2022, Additional history exists DTaP,Tdap,and Td Vaccines (2 - Td 11/03/2031 11/02/2021 or Tdap) Zoster Vaccines Completed 01/24/2022, 11/23/2021 Medical Devices Implanted Type Area X Ray Equipment Tester Device Shelf Model / Identifier Expiration Date Ser ial / Lot W Yogesh-Plate 1.5 Y Dbl Reg - Brown [id number] Hardware e.g. BioMe t Implanted: Qty: 3 on 06/24/1998 pins/screws/r ods Description: Device X Ray Equipment Tester - Biome t Invisible Connect.. Device Status Text - [id number]. Patch Dura-Guard 6x 8 - Brown [id number] Mesh or Patch Synovis Implanted: Qty: 1 on 06/24/1998 Description: Device X Ray Equipment Tester - Synov is. Device Status Text - [id number]. Procedures Procedure Name Priority Date/Time Associated Comments Diagnosis GLUCOSE POCT, B Routine 06/07/2022 Results for 10:06 PM CDT this procedure are in the results section. GLUCOSE POCT, B Routine 06/07/2022 5:11 Results f or PM CDT this procedure are in the results section. GLUCOSE POCT, B Routine 06/07/2022 2:32 Results f or PM CDT this procedure are in the results section. LACTATE, B/P Routine 06/07/2022 1:20 Results for PM CDT this procedure are in the results section. PHOSPHORUS Routine 06/07/2022 1:20 Results for (INORGANIC), S PM CDT this procedur e are in the results section. PROTHROMBIN TIME Timed 06/07/2022 1:20 Results for (PT), P PM CDT this procedure are in the results section. PHOSPHORUS Routine 06/07/2022 1:20 Results for (INORGANIC), S PM CDT this procedur e are in the results section. BASIC METABOLIC Routine 06/07/2022 1:20 Results f or PANEL, S/P PM CDT this procedure are in the results section. CBC WITH Routine 06/07/2022 1:20 Results for DIFFERENTIAL, B PM CDT this procedu re are in the results section. MAGNESIUM, S Routine 06/07/2022 1:20 Results for PM CDT this procedure are in the results section. GLUCOSE POCT, B Routine 06/07/2022 Results for 12:54 PM CDT this procedure are in the results section. GLUCOSE POCT, B Routine 06/07/2022 Results for 10:03 AM CDT this procedure are in the results section. CT HEAD NECK RAD - Emergent 06/06/2022 8:01 Results fo r ANGIOGRAM AND (Fastest; for the PM CDT this proc edure CEREBRAL PERFUSION most critically are in the WITH IV CONTRAST ill patients) results section. CT HEAD ACUTE STROKE RAD - Emergent 06/06/2022 8:01 Re sults for PROTOCOL WITHOUT IV (Fastest; for the PM CDT thi s procedure CONTRAST most critically are in the ill patients) results section. GLUCOSE POCT, B Routine 06/06/2022 6:49 Results f or PM CDT this procedure are in the results section. GLUCOSE POCT, B Routine 06/06/2022 6:00 Results f or PM CDT this procedure are in the results section. PATIENT STATUS STAT 06/06/2022 4:57 Results fo r PM CDT this procedure are in the results section. VENOUS BLOOD GAS STAT 06/06/2022 4:57 Results for W/COOX, B PM CDT this procedure are in the results section. SYPHILIS IGG W/ STAT 06/06/2022 4:57 Results f or REFLEX, EIA, S PM CDT this procedur e are in the results section. ZINC, S STAT 06/06/2022 4:56 Results for PM CDT this procedure are in the results section. MAGNESIUM, S STAT 06/06/2022 4:56 Results for PM CDT this procedure are in the results section. LACTATE, B/P STAT 06/06/2022 4:56 Results for PM CDT this procedure are in the results section. RENAL FUNCTION STAT 06/06/2022 4:56 Results fo r PANEL, S PM CDT this procedure are in the results section. COPPER, S STAT 06/06/2022 4:56 Results for PM CDT this procedure are in the results section. CBC WITH STAT 06/06/2022 4:56 Results for DIFFERENTIAL, B PM CDT this procedu re are in the results section. C-PEPTIDE, S STAT 06/06/2022 4:56 Results for PM CDT this procedure are in the results section. GLUCOSE POCT, B Routine 06/06/2022 4:31 Results f or PM CDT this procedure are in the results section. GLUCOSE POCT, B Routine 06/06/2022 1:09 Results f or PM CDT this procedure are in the results section. GLUCOSE POCT, B Routine 06/06/2022 9:10 Results f or AM CDT this procedure are in the results section. RT PULSE OXIMETRY, Routine 06/06/2022 7:21 Result s for OVERNIGHT AM CDT this procedure are in the results section. GLUCOSE POCT, B Routine 06/05/2022 7:29 Results f or PM CDT this procedure are in the results section. GLUCOSE POCT, B Routine 06/05/2022 4:26 Results f or PM CDT this procedure are in the results section. CORTISOL, S Timed 06/05/2022 4:18 Results for PM CDT this procedure are in the results section. LACTATE, B/P Timed 06/05/2022 4:17 Results for PM CDT this procedure are in the results section. IRON AND TOT Routine 06/05/2022 4:17 Results for IRON-BINDING PM CDT this procedure CAPACITY, S/P are in the results section. PHOSPHORUS Routine 06/05/2022 4:17 Results for (INORGANIC), S PM CDT this procedur e are in the results section. MAGNESIUM, S Routine 06/05/2022 4:17 Results for PM CDT this procedure are in the results section. BASIC METABOLIC Routine 06/05/2022 4:17 Results f or PANEL, S/P PM CDT this procedure are in the results section. CBC WITH Routine 06/05/2022 4:17 Results for DIFFERENTIAL, B PM CDT this procedu re are in the results section. AMMONIA Timed 06/05/2022 4:16 Results for PM CDT this procedure are in the results section. PATIENT STATUS Timed 06/05/2022 4:16 Results fo r PM CDT this procedure are in the results section. VENOUS BLOOD GAS W/O Timed 06/05/2022 4:16 Resu lts for COOX PM CDT this procedure are in the results section. 25-HYDROXYVITAMIN D2 Routine 06/05/2022 4:16 Resu lts for AND D3, S PM CDT this procedure are in the results section. FERRITIN, S Routine 06/05/2022 4:16 Results for PM CDT this procedure are in the results section. FOLATE, S Routine 06/05/2022 4:16 Results for PM CDT this procedure are in the results section. VITAMIN B12 ASSAY, S Routine 06/05/2022 4:16 Resu lts for PM CDT this procedure are in the results section. BETA-HYDROXYBUTYRATE Routine 06/05/2022 3:40 Resu lts for , S PM CDT this procedure are in the results section. PHOSPHORUS Routine 06/05/2022 3:40 Results for (INORGANIC), S PM CDT this procedur e are in the results section. GLUCOSE POCT, B Routine 06/05/2022 Results for 12:27 PM CDT this procedure are in the results section. GLUCOSE POCT, B Routine 06/05/2022 9:32 Results f or AM CDT this procedure are in the results section. GLUCOSE POCT, B Routine 06/05/2022 1:27 Results f or AM CDT this procedure are in the results section. GLUCOSE POCT, B Routine 06/04/2022 5:56 Results f or PM CDT this procedure are in the results section. DIPSTICK, U Routine 06/04/2022 3:21 Results for PM CDT this procedure are in the results section. MICROSCOPIC Routine 06/04/2022 3:21 Results for AUTOMATED PM CDT this procedure are in the results section. OSMOLALITY, U Routine 06/04/2022 3:21 Results for PM CDT this procedure are in the results section. PH, U Routine 06/04/2022 3:21 Results for PM CDT this procedure are in the results section. GRAM'S ST, U Routine 06/04/2022 3:21 Results for PM CDT this procedure are in the results section. URINALYSIS WITH Routine 06/04/2022 3:21 Results f or MICROSCOPIC PM CDT this procedure are in the results section. BACTERIAL CULTURE, Routine 06/04/2022 3:21 Result s for AEROBIC + SUSC, PM CDT this procedu re URINE are in the results section. ECG Routine 06/04/2022 3:11 Results for PM CDT this procedure are in the results section. SPSMA RESULT Routine 06/04/2022 3:09 Results for PM CDT this procedure are in the results section. PHOSPHORUS STAT 06/04/2022 1:43 Results for (INORGANIC), S PM CDT this procedur e are in the results section. MAGNESIUM, S STAT 06/04/2022 1:43 Results for PM CDT this procedure are in the results section. HC T4 FREE Routine 06/04/2022 1:40 Results for PM CDT this procedure are in the results section. THYROID FUNCTION Routine 06/04/2022 1:40 Results for CASCADE, S PM CDT this procedure are in the results section. LIPASE, S/P Routine 06/04/2022 1:40 Results for PM CDT this procedure are in the results section. COMPREHENSIVE STAT 06/04/2022 1:40 Results for METABOLIC PANEL, S/P PM CDT this pr ocedure are in the results section. CBC WITH STAT 06/04/2022 1:40 Results for DIFFERENTIAL, B PM CDT this procedu re are in the results section. BASIC METABOLIC STAT 06/04/2022 1:40 Results f or PANEL, S/P PM CDT this procedure are in the results section. BACTERIA / LISA STAT 06/04/2022 1:39 Result s for CULTURE, BLOOD PM CDT this procedur e are in the results section. HEMOGLOBIN A1C, B Routine 06/04/2022 1:26 Results for PM CDT this procedure are in the results section. SARS CORONAVIRUS 2, Routine 06/04/2022 8:30 Resul ts for PCR RAPID, V AM CDT this procedure are in the results section. GLUCOSE POCT, B Routine 06/04/2022 6:35 Results f or AM CDT this procedure are in the results section. BACTERIA / LISA Routine 06/03/2022 Results f or CULTURE, BLOOD 10:14 PM CDT this procedur e are in the results section. C. DIFFICILE TOXIN Routine 06/03/2022 7:42 Result s for PCR, F PM CDT this procedure are in the results section. MR GYNECOLOGIC RAD - Routine 05/23/2022 3:54 Abnormal Results f or PELVIS WITHOUT AND (most inpatients PM CDT Ultrasound this procedure WITH IV CONTRAST and all Endometrium are in the outpatients) Infection Urinary results Tract section. GLUCOSE POCT, B Routine 05/23/2022 2:07 Results f or PM CDT this procedure are in the results section. GLUCOSE, FASTING, Routine 05/23/2022 Diabetes Mellitus Resul ts for S/P 10:11 AM CDT Drug Or Chemical this proced ure Induced With Other are in th e Complication (HCC) results section. CREATININE WITH Routine 05/23/2022 Diabetes Mellitus Results for EGFR, S/P 10:11 AM CDT Drug Or Chemical this proced ure Induced With Other are in th e Complication (HCC) results section. GLUCOSE POCT, B Routine 05/15/2022 4:49 Results f or PM CDT this procedure are in the results section. GLUCOSE POCT, B Routine 05/15/2022 Results for 10:10 AM CDT this procedure are in the results section. GLUCOSE POCT, B Routine 05/14/2022 8:29 Results f or PM CDT this procedure are in the results section. GLUCOSE POCT, B Routine 05/14/2022 4:48 Results f or PM CDT this procedure are in the results section. CYSTATIN C WITH EGFR Routine 05/14/2022 6:41 Resu lts for AM CDT this procedure are in the results section. T4 (THYROXINE), Routine 05/14/2022 6:41 Results f or FREE, S AM CDT this procedure are in the results section. HEMOGLOBIN A1C, B Routine 05/14/2022 6:41 Results for AM CDT this procedure are in the results section. CT HEAD WITHOUT IV RAD - Semiurgent 05/14/2022 2:09 Re sults for CONTRAST (Fast; most ED AM CDT this procedur e patients; some are in the inpatients) results section. CT ABDOMEN PELVIS RAD - Semiurgent 05/14/2022 2:09 Res ults for WITH IV CONTRAST (Fast; most ED AM CDT this proc edure patients; some are in the inpatients) results section. LACTATE, B/P Timed 05/14/2022 1:17 Results for AM CDT this procedure are in the results section. PLACE PERIPHERAL IV Routine 05/13/2022 Results for 11:19 PM CDT this procedure are in the results section. DIPSTICK, U STAT 05/13/2022 Results for 10:35 PM CDT this procedure are in the results section. PH, U STAT 05/13/2022 Results for 10:35 PM CDT this procedure are in the results section. OSMOLALITY, U STAT 05/13/2022 Results for 10:35 PM CDT this procedure are in the results section. MICROSCOPIC STAT 05/13/2022 Results for AUTOMATED 10:35 PM CDT this procedure are in the results section. URINALYSIS WITH STAT 05/13/2022 Results for MICROSCOPIC 10:35 PM CDT this procedure are in the results section. BACTERIAL CULTURE, STAT 05/13/2022 Results f or AEROBIC + SUSC, 10:35 PM CDT this procedu re URINE are in the results section. BACTERIA / LISA STAT 05/13/2022 Results f or CULTURE, BLOOD 10:10 PM CDT this procedur e are in the results section. LACTATE, POCT, B STAT 05/13/2022 Results for 10:02 PM CDT this procedure are in the results section. THYROID-STIMULATING STAT 05/13/2022 Results for HORMONE-SENSITIVE 10:02 PM CDT this proce dure (S-TSH) are in the results section. PROTHROMBIN TIME STAT 05/13/2022 Results for (PT), P 10:02 PM CDT this procedure are in the results section. HEPATIC FUNCTION STAT 05/13/2022 Results for PANEL, S 10:02 PM CDT this procedure are in the results section. CBC WITH STAT 05/13/2022 Results for DIFFERENTIAL, B 10:02 PM CDT this procedu re are in the results section. BASIC METABOLIC STAT 05/13/2022 Results for PANEL, S/P 10:02 PM CDT this procedure are in the results section. BACTERIA / LISA STAT 05/13/2022 Results f or CULTURE, BLOOD 10:02 PM CDT this procedur e are in the results section. LACTATE, POCT, B Routine 05/13/2022 Results for 10:00 PM CDT this procedure are in the results section. DX CHEST AP OR PA RAD - Semiurgent 05/13/2022 4:53 Res ults for AND LATERAL 2 VIEWS (Fast; most ED PM CDT this p rocedure patients; some are in the inpatients) results section. SARS CORONAVIRUS 2, STAT 05/13/2022 3:48 Resul ts for PCR RAPID, V PM CDT this procedure are in the results section. BACTERIAL CULTURE, Routine 05/10/2022 4:57 Abnormal Result s for AEROBIC + SUSC PM CDT Ultrasound this procedur e Endometrium are in the results section. BACTERIAL CULTURE, Routine 05/10/2022 4:49 Incontinence Result s for AEROBIC + SUSC, PM CDT Urinary this procedu re URINE are in the results section. from Last 3 Months Results (ABNORMAL) Glucose, POCT (06/07/2022 10:06 PM CDT)Only the most recent of22 resultswithin the time period is included. Analysis Performed At Patho logist Time Signature Glucose, POCT, 240 (H) 70 - 140 06/07/2022 PCLX B mg/dL 10:10 PM CDT Site Capillary 06/07/2022 PCLX 10:10 PM CDT Specimen Anatomical Collection Method Collection Time Receive d Time (Source) Location / / Volume Laterality Blood 06/07/2022 10:06 06/07/2022 PM CDT 10:11 PM CDT Unknown Provider LAB POCT ORDERABLES-MANUAL Performing Organization Address City/State/ZIP Code Phon e Number POC [facility] [address] [place] [address] [place] [address] [place] [facility] [address] Prothrombin Time (PT) (06/07/2022 1:20 PM CDT)Only the most recent of2 results within the time period is included. P athologist Signature Prothrombin 11.2 9.4 - 12.5 06/07/2022 DTL Time, P sec 2:33 PM CDT INR 1.0 0.9 - 1.1 06/07/2022 DTL 2:33 PM CDT Comment: ----ADDITIONAL INFORMATION---- Standard intensity warfarin therapeutic range: 2.0 to 3.0 ?? High intensity warfarin therapeutic rang e: 2.5 to 3.5 Specimen Anatomical Collection Method Collection Time Receive d Time (Source) Location / / Volume Laterality Blood (Blood, 06/07/2022 1:20 PM 10/04/20 22 1:50 Venous) CDT PM CDT Jodie Sauer APRNNCr., D.N.P. LAB BLOOD ADD-ON Performing Organization Address City/State/ZIP Code Phon e Number [facility] - [address] [place], [place] [address] [facility] [place] [address] Laboratories-[facility] [address] (ABNORMAL) CBC with Differential, Blood (06/07/2022 1:20 PM CDT)Only the most recent of5 resultswithin the time period is included. [facility] Method Time Signature Hemoglobin 11.5 (L) 11.6 - 06/07/2022 DHPM 15.0 g/dL 2:39 PM CDT Hematocrit 35.3 (L) 35.5 - 06/07/2022 DHPM 44.9 % 2:39 PM CDT Erythrocytes 3.74 (L) 3.92 - 06/07/2022 DHPM 5.13 2:39 PM CDT x10(12)/L MCV 94.4 78.2 - 06/07/2022 DHPM 97.9 fL 2:39 PM CDT RBC Distrib Width 13.1 12.2 - 06/07/2022 DHPM 16.1 % 2:39 PM CDT Platelet Count 197 157 - 371 06/07/2022 DHPM x10(9)/L 2:39 PM CDT Leukocytes 8.8 3.4 - 9.6 06/07/2022 DHPM x10(9)/L 2:39 PM CDT Neutrophils 4.96 1.56 - 06/07/2022 DHPM 6.45 2:39 PM CDT x10(9)/L Lymphocytes 2.78 0.95 - 06/07/2022 DHPM 3.07 2:39 PM CDT x10(9)/L Monocytes 0.51 0.26 - 06/07/2022 DHPM 0.81 2:39 PM CDT x10(9)/L Eosinophils 0.50 (H) 0.03 - 06/07/2022 DHPM 0.48 2:39 PM CDT x10(9)/L Basophils 0.08 0.01 - 06/07/2022 DHPM 0.08 2:39 PM CDT x10(9)/L Specimen Anatomical Collection Method Collection Time Receive d Time (Source) Location / / Volume Laterality Blood (Blood, 06/07/2022 1:20 PM 06/07/20 1:50 Venous) CDT PM CDT Katya Sauer APRN.N.P., D.N.P. LAB BLOOD ADD-ON Performing Organization Address City/[facility] Phon e Number [facility] - [address] [place] [id number] [facility] [place], [place] [id number] [place] [address] (ABNORMAL) Phosphorus Inorganic (06/07/2022 1:20 PM CDT)Only the most recent of5 resultswithin the time period is included. P athologist Signature Phosphorus 2.3 (L) 2.5 - 4.5 06/07/2022 DTL (Inorganic), S mg/dL 2:50 PM CDT Specimen Anatomical Collection Method Collection Time Receive d Time (Source) Location / / Volume Laterality Blood (Blood, 06/07/2022 1:20 PM 06/07/20 2:32 Venous) CDT PM CDT Katya Sauer APRN.N.P., D.N.P. LAB BLOOD ADD-ON Performing Organization Address City/[facility] Phon e Number [facility] - [address] Magnesium (06/07/2022 1:20 PM CDT)Only the most recent of4 resultswithin the time period is included. P athologist Signature Magnesium, S 1.8 1.7 - 2.3 06/07/2022 DTL mg/dL 2:59 PM CDT Specimen Anatomical Collection Method Collection Time Receive d Time (Source) Location / / Volume Laterality Blood (Blood, 06/07/2022 1:20 PM 06/07/20 2:31 Venous) CDT PM CDT Katya Sauer APRN.N.P., D.N.P. LAB BLOOD ADD-ON Performing Organization Address City/[facility] Code Phon e Number [facility] - [address] [place], [place] [address] [facility] [place] [address] Lactate (06/07/2022 1:20 PM CDT)Only the most recent of4 resultswithin the time period is included. athologist Signature Lactate, P 1.6 0.5 - 2.2 06/07/2022 DTL mmol/L 2:52 PM CDT Specimen Anatomical Collection Method Collection Time Receive d Time (Source) Location / / Volume Laterality Blood (Blood, 06/07/2022 1:20 PM 06/07/20 2:31 Venous) CDT PM CDT Amelia Araya APRN, C.N.P., D.N.P. LAB BLOOD NON ADD-ON Performing Organization Address [facility] Phon e Number [facility] - [address] [place] [address] (ABNORMAL) Basic Metabolic Panel (06/07/2022 1:20 PM CDT)Only the most recent of 4 resultswithin the time period is included. athologist Signature Potassium, S 3.6 3.6 - 5.2 06/07/2022 DTL mmol/L 2:59 PM CDT Sodium, S 141 135 - 145 06/07/2022 DTL mmol/L 2:59 PM CDT Chloride, S 106 98 - 107 06/07/2022 DTL mmol/L 2:59 PM CDT Bicarbonate, S 25 22 - 29 06/07/2022 DTL mmol/L 2:59 PM CDT Anion Gap 10 7 - 15 06/07/2022 DTL 2:59 PM CDT BUN (Blood Urea 15 6 - 21 06/07/2022 DTL Nitrogen), S mg/dL 2:59 PM CDT Creatinine 0.88 0.59 - 06/07/2022 DTL 1.04 mg/dL 2:59 PM CDT Estimated GFR 75 >=60 06/07/2022 DTL (eGFR) mL/min/BSA 2:59 PM CDT Comment: Estimated GFR calculated using the 2020 CKD_EPI creatinine equation. Calcium, Total, S 8.1 (L) 8.8 - 10.2 mg/dL 06/07/2022 2:59 PM CDT DTL Glucose, S 226 (H) 70 - 140 mg/dL 06/07/2022 2:59 PM CDT D TL Specimen Anatomical Collection Method Collection Time Receive d Time (Source) Location / / Volume Laterality Blood (Blood, 06/07/2022 1:20 PM 06/07/20 2:31 Venous) CDT PM CDT Amelia Araya APRN, C.N.P., D.N.P. LAB BLOOD ADD-ON Performing Organization Address City/State/ZIP Code Phon e Number [facility] - [address] [place], [place] [address] [facility] [place] [address] [facility] [address] Head Neck Angiogram and Cerebral Perfusion with IV Contrast (06/06/2022 8:01 PM CDT) Anatomical Region Laterality Modality Head and Neck, Neuroradiology RST LOS, N/A C omputed Tomography, Computed Neuroradiology ARZ LOS, Neuroradiology T omography FLA LOS Specimen (Source) Anatomical Collection Method Collection Time Re ceived Time Location / / Volume Laterality 06/06/2022 8:03 PM CDT Impressions 06/06/2022 8:45 PM CDT 1. ??No acute intracranial abnormality. No evidence of acute infarct. 2. 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 3. ??Approximately 50% narrowing of the mid and distal left common carotid artery and intracranial internal carotid arteries. Narrative 06/06/2022 8:45 PM CDT EXAM: CT HEAD ACUTE STROKE PROTOCOL WITHOUT IV CONTRAST, CT HEAD NECK ANGIOGRAM AND CEREBRAL PERFUSION WITH IV CONTRAST Including 3D image post-processing. COMPARISON: CT head 05/14/2022 FINDINGS: HEAD: No acute intracranial hemorrhage, mass o r mass effect. No extra-axial fluid collection. No evidence of acute infarct. Unchanged areas of enc ephalomalacia within the right temporal lobe, right cerebellar hemisphere and left frontal l obe. Chronic lacunar infarcts left cerebellar hemisphere and right basal ganglia. Moderate generalize d cerebral and cerebellar parenchymal volume loss. Moderate leukoaraiosis. No new osseous abnormalities. 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 Irregular calci fication the suprasellar cistern to the left of midline is unchanged from 05/14/2022. No soft tissu e abnormalities. Mucus retention cyst right maxillary sinus. The paranasal sinuses and mastoid air ce lls are otherwise well aerated. 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 Advanced mixed calcified and n oncalcified plaque along the visualized descending thoracic aorta. Prominently noncalcified plaque c auses mild narrowing of the mid and distal left common carotid artery. No significant narrowing of the right common and bilateral internal carotid arteries. Calcification of the petrous t hrough supraclinoid ICAs with resultant mild to moderate narrowing bilaterally. The anterior, middle and posterior cereb ral arteries are patent without occlusive disease. No intracranial aneurysm. Patent origins of the vertebral arteries. Mixed atherosclerotic plaque causes occlusion of the left vertebral artery a t the V4 segment just distal to the origin of the PICA which should be chronic given loss of the norm al flow void on the MRI of 10/20/2021. The basilar artery is patent. CT PERFUSION: CBF<30% volume: 0 mL Tmax>6.0s: 0 ml Mismatch volume: None mL Mildly prolonged Tmax, greater than 4 se conds, within the right MCA [employer] watershed territory. Procedure Note Carlos Yadav M.D., Ph.D. - 06/06 EXAM: CT HEAD ACUTE STROKE PROTOCOL WITH OUT IV CONTRAST, CT HEAD NECK ANGIOGRAM AND CEREBRAL PERFUSION WITH IV CONTRAST Including 3D image post-processing. COMPARISON: CT head 05/14/2022 FINDINGS: HEAD: No acute intracranial hemorrhage, mass o r mass effect. No extra-axial fluid collection. No evidence of acute infarct. Unchanged areas of enc ephalomalacia within the right temporal lobe, right cerebellar hemisphere and left frontal l obe. Chronic lacunar infarcts left cerebellar hemisphere and right basal ganglia. Moderate generalize d cerebral and cerebellar parenchymal volume loss. Moderate leukoaraiosis. No new osseous abnormalities. 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 Irregular calci fication the suprasellar cistern to the left of midline is unchanged from 05/14/2022. No soft tissu e abnormalities. Mucus retention cyst right maxillary sinus. The paranasal sinuses and mastoid air ce lls are otherwise well aerated. 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 Advanced mixed calcified and n oncalcified plaque along the visualized descending thoracic aorta. Prominently noncalcified plaque c auses mild narrowing of the mid and distal left common carotid artery. No significant narrowing of the right common and bilateral internal carotid arteries. Calcification of the petrous t hrough supraclinoid ICAs with resultant mild to moderate narrowing bilaterally. The anterior, middle and posterior cereb ral arteries are patent without occlusive disease. No intracranial aneurysm. Patent origins of the vertebral arteries. Mixed atherosclerotic plaque causes occlusion of the left vertebral artery a t the V4 segment just distal to the origin of the PICA which should be chronic given loss of the norm al flow void on the MRI of 10/20/2021. The basilar artery is patent. CT PERFUSION: CBF<30% volume: 0 mL Tmax>6.0s: 0 ml Mismatch volume: None mL Mildly prolonged Tmax, greater than 4 se conds, within the right MCA [employer] watershed territory. IMPRESSION: 1. No acute intracranial abnormality. No evidence of acute infarct. 2. 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 3. Approximately 50% narrowing of the mi d and distal left common carotid artery and intracranial internal carotid arteries. Taylor NAILS CT PROCEDURES CT Head Acute Stroke Protocol without IV Contrast (06/06/2022 8:01 PM CDT) Anatomical Region Laterality Modality Head, Neuroradiology RST LOS, N/A Computed T omography, Computed Neuroradiology ARZ LOS, Neuroradiology T omography FLA LOS Specimen (Source) Anatomical Collection Method Collection Time Re ceived Time Location / / Volume Laterality 06/06/2022 7:41 PM CDT Impressions 06/06/2022 8:45 PM CDT 1. ??No acute intracranial abnormality. No evidence of acute infarct. 2. 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 3. ??Approximately 50% narrowing of the mid and distal left common carotid artery and intracranial internal carotid arteries. Narrative 06/06/2022 8:45 PM CDT EXAM: CT HEAD ACUTE STROKE PROTOCOL WITHOUT IV CONTRAST, CT HEAD NECK ANGIOGRAM AND CEREBRAL PERFUSION WITH IV CONTRAST Including 3D image post-processing. COMPARISON: CT head 05/14/2022 FINDINGS: HEAD: No acute intracranial hemorrhage, mass o r mass effect. No extra-axial fluid collection. No evidence of acute infarct. Unchanged areas of enc ephalomalacia within the right temporal lobe, right cerebellar hemisphere and left frontal l obe. Chronic lacunar infarcts left cerebellar hemisphere and right basal ganglia. Moderate generalize d cerebral and cerebellar parenchymal volume loss. Moderate leukoaraiosis. No new osseous abnormalities. 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 Irregular calci fication the suprasellar cistern to the left of midline is unchanged from 05/14/2022. No soft tissu e abnormalities. Mucus retention cyst right maxillary sinus. The paranasal sinuses and mastoid air ce lls are otherwise well aerated. 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 Advanced mixed calcified and n oncalcified plaque along the visualized descending thoracic aorta. Prominently noncalcified plaque c auses mild narrowing of the mid and distal left common carotid artery. No significant narrowing of the right common and bilateral internal carotid arteries. Calcification of the petrous t hrough supraclinoid ICAs with resultant mild to moderate narrowing bilaterally. The anterior, middle and posterior cereb ral arteries are patent without occlusive disease. No intracranial aneurysm. Patent origins of the vertebral arteries. Mixed atherosclerotic plaque causes occlusion of the left vertebral artery a t the V4 segment just distal to the origin of the PICA which should be chronic given loss of the norm al flow void on the MRI of 10/20/2021. The basilar artery is patent. CT PERFUSION: CBF<30% volume: 0 mL Tmax>6.0s: 0 ml Mismatch volume: None mL Mildly prolonged Tmax, greater than 4 se conds, within the right MCA [employer] watershed territory. Procedure Note Carlos Yadav M.D., Ph.D. - 06/06 EXAM: CT HEAD ACUTE STROKE PROTOCOL WITH OUT IV CONTRAST, CT HEAD NECK ANGIOGRAM AND CEREBRAL PERFUSION WITH IV CONTRAST Including 3D image post-processing. COMPARISON: CT head 05/14/2022 FINDINGS: HEAD: No acute intracranial hemorrhage, mass o r mass effect. No extra-axial fluid collection. No evidence of acute infarct. Unchanged areas of enc ephalomalacia within the right temporal lobe, right cerebellar hemisphere and left frontal l obe. Chronic lacunar infarcts left cerebellar hemisphere and right basal ganglia. Moderate generalize d cerebral and cerebellar parenchymal volume loss. Moderate leukoaraiosis. No new osseous abnormalities. 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 Irregular calci fication the suprasellar cistern to the left of midline is unchanged from 05/14/2022. No soft tissu e abnormalities. Mucus retention cyst right maxillary sinus. The paranasal sinuses and mastoid air ce lls are otherwise well aerated. 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 Advanced mixed calcified and n oncalcified plaque along the visualized descending thoracic aorta. Prominently noncalcified plaque c auses mild narrowing of the mid and distal left common carotid artery. No significant narrowing of the right common and bilateral internal carotid arteries. Calcification of the petrous t hrough supraclinoid ICAs with resultant mild to moderate narrowing bilaterally. The anterior, middle and posterior cereb ral arteries are patent without occlusive disease. No intracranial aneurysm. Patent origins of the vertebral arteries. Mixed atherosclerotic plaque causes occlusion of the left vertebral artery a t the V4 segment just distal to the origin of the PICA which should be chronic given loss of the norm al flow void on the MRI of 10/20/2021. The basilar artery is patent. CT PERFUSION: CBF<30% volume: 0 mL Tmax>6.0s: 0 ml Mismatch volume: None mL Mildly prolonged Tmax, greater than 4 se conds, within the right MCA [employer] watershed territory. IMPRESSION: 1. No acute intracranial abnormality. No evidence of acute infarct. 2. 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 3. Approximately 50% narrowing of the mi d and distal left common carotid artery and intracranial internal carotid arteries. Taylor NAILS CT PROCEDURES Syphilis IgG w/ Reflex, EIA, S (06/06/2022 4:57 PM CDT) Patholo gist Method Time Signature Syphilis IgG Nonreactive Nonreactive 06/07/2022 [facility] w/ Reflex, 1:37 PM CDT EIA, S Comment: No serologic evidence of infection with T. pallidum (syphilis). ??Repeat testing may be cons idered in patients with suspected acute or primary syphilis in 2-4 weeks. For additional information on interpreta tion of the syphilis reverse algorithm and resul ts, see: [email or web address] Specimen Anatomical Collection Method Collection Time Receive d Time (Source) Location / / Volume Laterality Blood (Blood, 06/06/2022 4:57 PM 06/06/20 22 8:02 Venous) CDT PM CDT Amelia Araya APRN, Katya.N.P., D.N.P. LAB MICROB IOLOGY - BLOOD ORDERABLES Performing Organization Address City/[facility] Phon e Number [facility] [address] [place], [place] [address] [facility] [place], [place] [id number] [place] [address] Dr. VAZQUEZ Patient Status (06/06/2022 4:57 PM CDT)Only the most recent of2 resultswithin the time period is included. P athologist Signature O2 Flow 0.2 L/min 06/06/2022 [facility] 5:08 PM CDT Spont. 24 06/06/2022 [facility] breaths/min 5:08 PM CDT Specimen Anatomical Collection Method Collection Time Receive d Time (Source) Location / / Volume Laterality Blood 06/06/2022 4:57 PM 2 5:08 CDT PM CDT Amelia Araya APRN, C.N.P., D.N.P. LAB BLOOD NON ADD-ON Performing Organization Address City/[facility]/ZIP Code Phon e Number [facility] - [address] [place], [place] [address] [place] [address] [facility] [address] (ABNORMAL) Blood Gas with Coox, Venous (06/06/2022 4:57 PM CDT) Patholo gist Method Time Signature Venous pO2 32 Not applicable 06/06/2022 ST[facility] mm Hg 5:10 PM CDT Venous pCO2 51 41 - 51 mm Hg 06/06/2022 [facility] 5:10 PM CDT Venous pH 7.34 7.32 - 7.43 pH 06/06/2022 [facility] 5:10 PM CDT Venous Base 2 Not applicable 06/06/2022 [facility] Excess mmol/L 5:10 PM CDT HCO3 28 Not applicable 06/06/2022 [facility] mmol/L 5:10 PM CDT Hemoglobin, B 10.6 (L) 11.6 - 15.0 06/06/2022 [facility] g/dL 5:10 PM CDT O2Hb 53.9 Not applicable 06/06/2022 [facility] % 5:10 PM CDT COHb 1.0 <3.0 % 06/06/2022 [facility] 5:10 PM CDT MetHb <1.0 <1.5 % 06/06/2022 [facility] 5:10 PM CDT CtO2 8.0 Not applicable 06/06/2022 [facility] vol % 5:10 PM CDT Venous Sample [facility] Specimen Anatomical Collection Method Collection Time Receive d Time (Source) Location / / Volume Laterality Blood (Blood, 06/06/2022 4:57 PM 06/06/20 22 5:08 Venous) CDT PM CDT Amelia Araya APRN, C.N.P., D.N.P. LAB BLOOD NON ADD-ON Performing Organization Address City/State/ZIP Code Phon e Number [facility] - [address] [place], [place] [address] [facility] [place] [address] [facility] [address] (ABNORMAL) Renal Function Panel (06/06/2022 4:56 PM CDT) P athologist Signature Potassium, S 3.9 3.6 - 5.2 06/06/2022 DTL mmol/L 6:03 PM CDT Sodium, S 138 135 - 145 06/06/2022 DTL mmol/L 6:03 PM CDT Chloride, S 106 98 - 107 06/06/2022 DTL mmol/L 6:03 PM CDT Bicarbonate, S 22 22 - 29 06/06/2022 DTL mmol/L 6:03 PM CDT Anion Gap 10 7 - 15 06/06/2022 DTL 6:03 PM CDT BUN (Blood Urea 20 6 - 21 06/06/2022 DTL Nitrogen), S mg/dL 6:03 PM CDT Creatinine 0.98 0.59 - 06/06/2022 DTL 1.04 mg/dL 6:03 PM CDT Estimated GFR 66 >=60 06/06/2022 DTL (eGFR) mL/min/BSA 6:03 PM CDT Comment: Estimated GFR calculated using the 2020 CKD_EPI creatinine equation. Calcium, Total, S 7.5 (L) 8.8 - 10.2 mg/dL 06/06/2022 6:03 PM CDT DTL Glucose, S 331 (H) 70 - 140 mg/dL 06/06/2022 6:03 PM CDT D TL Albumin, S 3.1 (L) 3.5 - 5.0 g/dL 06/06/2022 6:03 PM CDT D TL Phosphorus (Inorganic), S 2.1 (L) 2.5 - 4.5 mg/dL 06/06/20 6:03 PM CDT DTL Specimen Anatomical Collection Method Collection Time Receive d Time (Source) Location / / Volume Laterality Blood (Blood, 06/06/2022 4:56 PM 06/06/20 5:33 Venous) CDT PM CDT Amelia Araya APRN, C.N.P., D.N.P. LAB BLOOD ADD-ON Performing Organization Address City/State/ZIP Code Phon e Number [facility] - [address] [place], [place] [address] [facility] [place] [address] [facility] [address] Copper (06/06/2022 4:56 PM CDT) P athologist Signature Copper, S 96 77 - 206 06/08/2022 8:12 SDSC mcg/dL PM CDT Comment: ----ADDITIONAL INFORMATION---- This test was developed and its performa nce characteristics determined by [facility] in a manner consistent with CLIA requirements. This test has not been cleared or approved by the [place] d and Drug Administration. Specimen Anatomical Collection Method Collection Time Receive d Time (Source) Location / / Volume Laterality Blood (Blood, 06/06/2022 4:56 PM 06/06/20 8:10 Venous) CDT PM CDT Amelia Araya APRN, Katya.N.P., D.N.P. LAB BLOOD NON ADD-ON Performing Organization Address [facility] Phon e Number [address] [place], [place] [address] [address], [place] [phone] [place] [address] Dr. VAZQUEZ (ABNORMAL) Zinc (06/06/2022 4:56 PM CDT) athologist Signature Zinc, S 49 (L) 60 - 106 06/08/2022 [facility] mcg/dL 8:12 PM CDT Comment: ----ADDITIONAL INFORMATION---- This test was developed and its performa nce characteristics determined by [facility] in a manner consistent with CLIA requirements. This test has not been cleared or approved by the [place] d and Drug Administration. Specimen Anatomical Collection Method Collection Time Receive d Time (Source) Location / / Volume Laterality Blood (Blood, 06/06/2022 4:56 PM 06/06/20 8:10 Venous) CDT PM CDT Amelia Araya APRN, Katya.N.P., D.N.P. LAB BLOOD NON ADD-ON Performing Organization Address City/[facility] Phon e Number [address] [place], [place] [address] [address] [place], [place] [phone] [place] [address] Dr. VAZQUEZ C-Peptide (06/06/2022 4:56 PM CDT) athologist Signature C-Peptide, S 1.2 1.1 - 4.4 06/06/2022 DTL ng/mL 6:03 PM CDT Specimen Anatomical Collection Method Collection Time Receive d Time (Source) Location / / Volume Laterality Blood (Blood, 06/06/2022 4:56 PM 06/06/20 5:33 Venous) CDT PM CDT Neelam Portillo M.D., Ph.D. LAB BLOOD ADD-ON Performing Organization Address City/State/ZIP Code Phon e Number [facility] - [address] [place], [place] [address] [facility] [place] [address] [facility] [address] RT Pulse Oximetry, Overnight (06/06/2022 7:21 AM CDT) Specimen (Source) Anatomical Location Collection Method / Collectio n Time Received Time / Laterality Volume 06/05/2022 Impressions [facility] - 06/07/2022 7:47 AM CD T Overnight oximetry was performed in the patient's hospital room. ??The study was performed on room air. ??No use of an assisted breathing device was reported. ??There was no patient diary. ??The baselin e oxygen saturation appears normal. ??Th e pattern of overnight oximetry displays minimal lexi odic fluctuations. ??No specific change in heart rate was noted. Impression: ??Normal study. Physician: Toni Morrow M.D. [phone] Narrative This result has an attachment that is no t available. Procedure Note Toni Morrow M.D. - 06/07/2022For matting of this note might be different from the original. IMPRESSION: Overnight oximetry was performed in the patient's hospital room. The study was performed on room air. No use of an assisted breathing device was reported. There was no patient diary. The baseline oxygen saturation appears normal. The pattern of overnight oximetry displays minimal lexi odic fluctuations. No specific change in heart rate was noted. Impression: Normal study. Physician: Toni Morrow M.D. [phone] [id number] Amelia Araya APRN, C.N.P., D.N.P. SLEEP CENT ER ORDERABLES Performing Organization Address City/[facility]/ZIP Code Phon e Number [facility] Cortisol (06/05/2022 4:18 PM CDT) P athologist Signature Cortisol PM 5.1 2 - 14 06/05/2022 DTL Result mcg/dL 5:43 PM CDT Specimen Anatomical Collection Method Collection Time Receive d Time (Source) Location / / Volume Laterality Blood (Blood, 06/05/2022 4:18 PM 06/05/20 4:32 Venous) CDT PM CDT Amelia Araya APRN, C.N.P., D.N.P. LAB BLOOD ADD-ON Performing Organization Address City/[facility] Phon e Number [facility] - [id number] [place] [address] (ABNORMAL) Iron and Total Iron-Binding Capacity (06/05/2022 4:17 PM CDT) P athologist Signature Iron 95 35 - 145 06/05/2022 DTL mcg/dL 5:15 PM CDT Total Iron 106 (L) 250 - 400 06/05/2022 DTL Binding mcg/dL 5:15 PM CDT Capacity Percent 90 (H) 14 - 50 % 06/05/2022 DTL Saturation 5:15 PM CDT Specimen Anatomical Collection Method Collection Time Receive d Time (Source) Location / / Volume Laterality Blood (Blood, 06/05/2022 4:17 PM 06/05/20 4:32 Venous) CDT PM CDT Amelia Araya APRN, C.N.P., D.N.P. LAB BLOOD ADD-ON Performing Organization Address City/[facility] Phon e Number [facility] - [phone] [place] [address] Blood Gas without Coox, Venous (06/05/2022 4:16 PM CDT) Patholo gist Method Time Signature Venous pO2 26 Not applicable 06/05/2022 STMA mm Hg 4:24 PM CDT Venous pCO2 48 41 - 51 mm Hg 06/05/2022 [facility]MA 4:24 PM CDT Venous pH 7.38 7.32 - 7.43 pH 06/05/2022 [facility]MA 4:24 PM CDT Venous Base 3 Not applicable 06/05/2022 [facility] Excess mmol/L 4:24 PM CDT HCO3 27 Not applicable 06/05/2022 [facility] mmol/L 4:24 PM CDT Venous Sample Venipunct 06/05/2022 [facility] Site 4:24 PM CDT Specimen Anatomical Collection Method Collection Time Receive d Time (Source) Location / / Volume Laterality Blood (Blood, 06/05/2022 4:16 PM 06/05/20 22 4:21 Venous) CDT PM CDT Taylor Ivory M.D. LAB BLOOD NON ADD-ON Performing Organization Address City/[facility] Phon e Number [facility] [address] [place], [place] [address] [facility] 25-Hydroxyvitamin D2 and D3 (06/05/2022 4:16 PM CDT) athologist Signature 25-Hydroxy D2 <4.0 ng/mL 06/07/2022 SD[facility] 11:48 AM CDT 25-Hydroxy D3 40 ng/mL 06/07/2022 [facility] 11:48 AM CDT 25-Hydroxy D 40 ng/mL 06/07/2022 [facility] Total 11:48 AM CDT Comment: ----REFERENCE VALUE---- 25-HYDROXY D TOTAL (D2+D3) Optimum level s in the healthy population are 20-50, patients with bone disease may benefit from higher levels within this r harrison. ----ADDITIONAL INFORMATION---- This test was developed and its performa nce characteristics determined by [facility] in a manner consistent with CLIA requirements. This test has not been cleared or approved by the [place] d and Drug Administration. Specimen Anatomical Collection Method Collection Time Receive d Time (Source) Location / / Volume Laterality Blood (Blood, 06/05/2022 4:16 PM 06/06/20 22 8:29 Venous) CDT AM CDT Amelia Araya APRN C.N.P., D.N.P. LAB BLOOD ADD-ON Performing Organization Address City/[facility] Phon e Number [facility] [address] [place], [place] [address] [place], [place] [phone] [place] [address] [place] Folate (06/05/2022 4:16 PM CDT) athologist Signature Folate, S 13.3 >=4.0 mcg/L 06/06/2022 DTL 11:00 AM CDT Specimen Anatomical Collection Method Collection Time Receive d Time (Source) Location / / Volume Laterality Blood (Blood, 06/05/2022 4:16 PM 06/05/20 4:33 Venous) CDT PM CDT Amelia Araya APRN, Katya.N.P., D.N.P. LAB BLOOD ADD-ON Performing Organization Address City/[facility] Phon e Number [facility] - [address] [place], [place] [address] [place] [phone] [place] [address] (ABNORMAL) Ferritin (06/05/2022 4:16 PM CDT) athologist [facility] Ferritin, S 363 (H) 11 - 307 06/05/2022 DTL mcg/L 5:57 PM CDT Specimen Anatomical Collection Method Collection Time Receive d Time (Source) Location / / Volume Laterality Blood (Blood, 06/05/2022 4:16 PM 06/05/20 4:50 Venous) CDT PM CDT Amelia Araya APRN, C.N.P., D.N.P. LAB BLOOD ADD-ON Performing Organization Address City/[facility]/ZIP Code Phon e Number [facility] - [address] [place], [place] [address] [place], [place] [phone] [place] [address] Vitamin B12 Assay (06/05/2022 4:16 PM CDT) athologist [facility] Vitamin B12 712 964 - 912 06/06/2022 DTL Assay, S ng/L 11:01 AM CDT Comment: ----ADDITIONAL INFORMATION---- In patients being evaluated for vitamin B12 deficiency who have intrinsic factor blocking antibodie s (IFBA), false elevations of B12 may occur due to IFBA interference thus potentially obscuring a physiological de ficiency of B12. If observed B12 concentrations are disco rdant with clinical presentation, measurement of methylmalon ic acid (MMA) should be considered. Specimen Anatomical Collection Method Collection Time Receive d Time (Source) Location / / Volume Laterality Blood (Blood, 06/05/2022 4:16 PM 06/05/20 4:33 Venous) CDT PM CDT Katya Sauer APRN.N.P., D.N.P. LAB BLOOD ADD-ON Performing Organization Address City/[facility] Phon e Number [facility] - [address] Ammonia (06/05/2022 4:16 PM CDT) P athologist Signature Ammonia, P <10 <=30 mcmol/L 06/05/2022 DT 5:30 PM CDT Specimen Anatomical Collection Method Collection Time Receive d Time (Source) Location / / Volume Laterality Blood (Blood, 06/05/2022 4:16 PM 06/05/20 4:30 Venous) CDT PM CDT Taylor Ivory M.D. LAB BLOOD NON ADD-ON Performing Organization Address City/[facility] Phon e Number [facility] - [address] Beta-Hydroxybutyrate (06/05/2022 3:40 PM CDT) P athologist Signature Beta-Hydroxybut 0.1 <0.4 mmol/L 06/07/2022 DT yrate, S 9:25 AM CDT Specimen Anatomical Collection Method Collection Time Receive d Time (Source) Location / / Volume Laterality Blood (Blood, 06/05/2022 3:40 PM 06/07/20 8:05 Venous) CDT AM CDT Neelam Portillo M.D., Ph.D. LAB BLOOD ADD-ON Performing Organization Address City/[facility] Phon e Number [facility] - [address] [place], [place] [phone] [place] [address] [address] [facility] (ABNORMAL) Dipstick, Urine (06/04/2022 3:21 PM CDT)Only the most recent of2 resultswithin the time period is included. Patholo gist Method Time Signature Hemoglobin, QL Negative Negative 06/04/2022 DTL 4:16 PM CDT Leukocyte Negative Negative 06/04/2022 DTL Esterase, U 4:16 PM CDT Nitrite, U Negative Negative 06/04/2022 DTL 4:16 PM CDT Ketones, U 5 (A) Negative 06/04/2022 DTL mg/dL 4:16 PM CDT Glucose, U Negative Negative 06/04/2022 DTL mg/dL 4:16 PM CDT Specimen Anatomical Collection Method Collection Time Receive d Time (Source) Location / / Volume Laterality Urine 06/04/2022 3:21 PM 2 3:46 CDT PM CDT Amelia Araya APRN, C.N.P., D.N.P. LAB URINE ORDERABLES Performing Organization Address City/[facility] Phon e Number [facility] - [phone] [place] [address] [address] [facility] Microscopic Automated (06/04/2022 3:21 PM CDT)Only the most recent of2 results within the time period is included. P athologist Signature Microscopy Normal 06/04/2022 4:35 DTL PM CDT Specimen Anatomical Collection Method Collection Time Receive d Time (Source) Location / / Volume Laterality Urine 06/04/2022 3:21 PM 2 3:46 CDT PM CDT Amelia Araya APRN, C.N.P., D.N.P. LAB URINE ORDERABLES Performing Organization Address City/[facility]/ZIP Code Phon e Number [facility] - [address] [place], [place] [address] [place], [place] [phone] [place] [address] [address] [facility] Bacterial Culture, Aerobic + Susc, Urine (06/04/2022 3:21 PM CDT)Only the most recent of3 resultswithin the time period is included. [facility] gist Method Time Signature Urine Culture No growth 06/05/2022 DT after 1 day 12:37 PM CDT of incubation. Specimen Anatomical Collection Method Collection Time Receive d Time (Source) Location / / Volume Laterality Urine (Urine, 06/04/2022 3:21 PM 06/04/20 22 4:07 Straight CDT PM CDT Catheter) Comment: Specimen Source Site: Urine Amelia Araya APRN, C.N.P., D.N.P. LAB MICROB IOLOGY - GENERAL ORDERABLES Performing Organization Address City/[facility] Phon e Number [facility] - [address] Gram Stain, Urine (06/04/2022 3:21 PM CDT) [facility] Method Time Signature Source Urine, 06/04/2022 DT Urine, 3:46 PM CDT Straight Catheter Gram Stain, U Negative Negative 06/04/2022 DT 4:31 PM CDT Specimen Anatomical Collection Method Collection Time Receive d Time (Source) Location / / Volume Laterality Urine 06/04/2022 3:21 PM 2 3:46 CDT PM CDT Amelia Araya APRN, C.N.P., D.N.P. LAB URINE ORDERABLES Performing Organization Address City/[facility]/ZIP [facility] Phon e Number [facility] - [address] [place], [place] [address] [facility] [place] [address] pH, Urine (06/04/2022 3:21 PM CDT)Only the most recent of2 resultswithin the time period is included. P athologist Signature pH, U 7.3 4.5 - 8.0 06/04/2022 4:35 DTL PM CDT Specimen Anatomical Collection Method Collection Time Receive d Time (Source) Location / / Volume Laterality Urine 06/04/2022 3:21 PM 2 3:46 CDT PM CDT Amelia Araya APRN, C.N.P., D.N.P. LAB URINE ORDERABLES Performing Organization Address City/[facility] Phon e Number [facility] - [address] Osmolality, Urine (06/04/2022 3:21 PM CDT)Only the most recent of2 resultswithin the time period is included. P athologist Signature Osmolality, U 705 150 - 1150 06/04/2022 DTL mOsm/kg 4:35 PM CDT Specimen Anatomical Collection Method Collection Time Receive d Time (Source) Location / / Volume Laterality Urine 06/04/2022 3:21 PM 3:46 CDT PM CDT Amelia Araya APRN C.N.P., D.N.P. LAB URINE ORDERABLES Performing Organization Address City/[facility] Phon e Number [facility] - [address] Urinalysis with Microscopic: Urine, Straight Catheter (06/04/2022 3:21 PM CDT) Only the most recent of2 resultswithin the time period is included. Patholo gist Method Time Signature Source Urine, 06/04/2022 DTL Urine, 3:46 PM CDT Straight Catheter Color, U Yellow 06/04/2022 DTL 3:46 PM CDT Clarity, U Clear 06/04/2022 DTL 3:46 PM CDT Protein, U 14 <26 mg/dL 06/04/2022 DTL 4:23 PM CDT Protein/Osmola 0.20 <0.42 06/04/2022 DTL lity ratio 4:35 PM CDT Predicted 24 154 mg/24 h 06/04/2022 DTL Hr Protein 4:35 PM CDT Predicted 38-624 mg/24 h 06/04/2022 DTL Range 4:35 PM CDT Specimen Anatomical Collection Method Collection Time Receive d Time (Source) Location / / Volume Laterality Urine (Urine, 06/04/2022 3:21 PM 06/04/20 3:46 Straight CDT PM CDT Catheter) Jodie Sauer APRNNRosaI sela, D.N.P. LAB URINE ORDERABLES Performing Organization Address City/[facility]/ZIP Code Phon e Number [facility] - [address] [place], [place] [address] [facility] [place] [address] [facility] [address] [facility] ECG 12 Lead (06/04/2022 3:11 PM CDT) P athologist Signature Ventricular Rate 77 BPM MUSE ECG/Min IA Interval 166 ms MUSE QRSD Interval 80 ms MUSE QT Interval 388 ms MUSE QTC Interval 439 ms MUSE P [place] 70 degrees MUSE R [place] 66 degrees MUSE T Wave [place] 66 degrees MUSE Specimen Anatomical Collection Method Collection Time Receive d Time (Source) Location / / Volume Laterality 06/04/2022 3:11 PM 3:22 CDT PM CDT Impressions MUSE - 06/04/2022 3:22 PM CDT Normal sinus rhythm Normal ECG When compared with ECG of 04-JUN-1998 13 :16, No significant change was found Reviewed by PAKO Billy Narrative This result has an attachment that is no t available. Procedure Note Jerson Paez M.D. - 06/04/2022Fo rmatting of this note might be different from the original. IMPRESSION: Normal sinus rhythm Normal ECG When compared with ECG of 04-JUN-1998 13 :16, No significant change was found Reviewed by PAKO Billy Jodie Sauer APRNNNatPNat, D.N.P. ECG ORDERA BLES Performing Organization Address City/[facility]/ZIP Code Phon e Number MUSE MUSE NA (ABNORMAL) SPSMA Result (06/04/2022 3:09 PM CDT) Patholo gist Method Time Signature Neutrophilic Segs 77 (H) 50 - 75 % 06/04/2022 DTL and Bands 3:24 PM CDT Lymphocytes 12 (L) 18 - 42 % 06/04/2022 DHPM 3:24 PM CDT Monocytes 9 2 - 11 % 06/04/2022 PM 3:24 PM CDT Eosinophils 2 1 - 3 % 06/04/2022 PM 3:24 PM CDT Interpretation SeeComment 06/04/2022 [facility] 3:24 PM CDT Comment: No schistocytes are seen. No pl atelet clumping. Reviewed by: Tech 06/04/2022 3:24 PM CDT PM Specimen Anatomical Collection Method Collection Time Receive d Time (Source) Location / / Volume Laterality Blood 06/04/2022 3:09 PM 2 3:09 CDT PM CDT Amelia Araya APRN, C.N.P., D.N.P. LAB BLOOD ADD-ON Performing Organization Address City/[facility] Phon e Number [facility] - [address] T4 (Thyroxine), Free, Serum (06/04/2022 1:40 PM CDT) athologist Signature T4 (Thyroxine), 0.9 0.9 - 1.7 06/04/2022 DTL Free, S ng/dL 6:11 PM CDT Specimen Anatomical Collection Method Collection Time Receive d Time (Source) Location / / Volume Laterality Blood 06/04/2022 1:40 PM 2 4:10 CDT PM CDT Amelia Araya APRN, C.N.P., D.N.P. LAB BLOOD ADD-ON Performing Organization Address City/[facility] Phon e Number [facility] - [address] (ABNORMAL) Thyroid Function [place]bee (06/04/2022 1:40 PM CDT) P athologist Signature TSH, Sensitive 0.2 (L) 0.3 - 4.2 06/04/2022 DTL mIU/L 4:44 PM CDT Specimen Anatomical Collection Method Collection Time Receive d Time (Source) Location / / Volume Laterality Blood (Blood, 06/04/2022 1:40 PM 06/04/20 4:10 Venous) CDT PM CDT Katya Sauer APRN.N.P., Shira.N.P. LAB BLOOD ADD-ON Performing Organization Address City/[facility] Phon e Number [facility] - [address] [place], [place] [address] [place] [address] [place] [address] Lipase (06/04/2022 1:40 PM CDT) athologist Signature Lipase, S 21 13 - 60 U/L 06/04/2022 4:44 DTL PM CDT Specimen Anatomical Collection Method Collection Time Receive d Time (Source) Location / / Volume Laterality Blood (Blood, 06/04/2022 1:40 PM 06/04/20 4:10 Venous) CDT PM CDT Katya Sauer APRN.N.P., D.N.P. LAB BLOOD ADD-ON Performing Organization Address City/[facility] Phon e Number [facility] - [address] [place], [place] [phone] [place] [address] (ABNORMAL) Comprehensive Metabolic Panel (06/04/2022 1:40 PM CDT) P athologist Signature Potassium, S CANCELED mmol/L 06/04/2022 DTL 2:00 PM CDT Comment: Duplicate test request. Result canceled by the ancillary. Sodium, S CANCELED mmol/L 06/04/2022 2:00 PM CDT DTL Comment: Duplicate test request. Result canceled by the ancillary. Chloride, S CANCELED mmol/L 06/04/2022 2:00 PM CDT DTL Comment: Duplicate test request. Result canceled by the ancillary. Bicarbonate, S CANCELED mmol/L 06/04/2022 2:00 PM CDT DT L Comment: Duplicate test request. Result canceled by the ancillary. BUN (Blood Urea Nitrogen), S CANCELED mg/dL 06/04/2022 2:00 PM CDT DTL Comment: Duplicate test request. Result canceled by the ancillary. Creatinine CANCELED mg/dL 06/04/2022 2:00 PM CDT DTL Comment: Duplicate test request. Result canceled by the ancillary. Calcium, Total, S CANCELED mg/dL 06/04/2022 2:00 PM CDT DTL Comment: Duplicate test request. Result canceled by the ancillary. Glucose, S CANCELED mg/dL 06/04/2022 2:00 PM CDT DTL Comment: Duplicate test request. Result canceled by the ancillary. Protein, Total, S 4.8 (L) 6.3 - 7.9 g/dL 06/04/2022 2:48 P M CDT DTL Albumin, S 3.2 (L) 3.5 - 5.0 g/dL 06/04/2022 2:48 PM CDT D TL Aspartate Aminotransferase 24 8 - 43 U/L 06/04/2022 2 :48 PM CDT DTL (AST), S Alkaline Phosphatase, S 48 35 - 104 U/L 06/04/2022 2: 48 PM CDT DTL Alanine Aminotransferase (ALT), 8 7 - 45 U/L 022 2:48 PM CDT DTL S Bilirubin, Total, S 0.4 <=1.2 mg/dL 06/04/2022 2:48 PM CDT DTL Specimen Anatomical Collection Method Collection Time Receive d Time (Source) Location / / Volume Laterality Blood (Blood, 06/04/2022 1:40 PM 06/04/20 22 2:00 Venous) CDT PM CDT Amelia Araya APRN, C.N.P., D.N.P. LAB BLOOD ADD-ON Performing Organization Address City/State/ZIP Code Phon e Number [facility] - [address] [place], [place] [address] [facility] [place] [address] [facility] [address] Bacteria / Lisa Culture, Blood #2 (06/04/2022 1:39 PM CDT)Only the most recent of4 resultswithin the time period is included. [facility] Method Time Signature Bacteria/[place] No growth 06/09/2022 DT da Culture, after 5 3:02 PM CDT Blood days of incubation. Specimen (Source) Anatomical Collection Method Collection Time Re ceived Time Location / / Volume Laterality Blood (Blood, 06/04/2022 1:39 06/04/2022 2:21 Peripheral Draw) PM CDT PM CDT Comment: Specimen Source Site: Blood Narrative [facility] - 06/09/2022 3:02 PM CDT Received Bactec Peds bottle Amelia Araya APRN C.N.P., D.N.P. LAB MICROB IOLOGY - GENERAL ORDERABLES Performing Organization Address City/State/ZIP Code Phon e Number [facility] - [facility] [phone] [place] [address]-[facility] [address] [facility] (ABNORMAL) Hemoglobin A1c (06/04/2022 1:26 PM CDT)Only the most recent of2 resultswithin the time period is included. P athologist Signature Hemoglobin A1c, 8.9 (H) 4.0 - 5.6 06/04/2022 DT B % 3:29 PM CDT Comment: Hemoglobin A1c values greater than or eq ual to 6.5 percent are diagnostic for diabetes mellitus. ?? Diagnosis should be confirmed by repeat testing. ??In diabet ic patients, HbA1c goals should be discussed with healthcar e provider. Specimen Anatomical Collection Method Collection Time Receive d Time (Source) Location / / Volume Laterality Blood 06/04/2022 1:26 PM 2 3:19 CDT PM CDT Amelia Araya APRN, C.N.P., D.N.P. LAB BLOOD ADD-ON Performing Organization Address City/State/ZIP Code Phon e Number [facility] - [address] [place], [place] [address] [place], [place] [phone] [place] [address]-[facility] [address] [facility] SARS Coronavirus 2, PCR Rapid, V (06/04/2022 8:30 AM CDT)Only the most recent of 2 resultswithin the time period is included. Patholo gist Method Time Signature SARS CoV-2, Undetected Undetected 06/04/2022 STMA PCR, Rapid, V 9:16 AM CDT Comment: ----ADDITIONAL INFORMATION---- This RT-PCR test was performed using the Keysha SARS-CoV-2 and Influenza A/B Reagent assay from [employer], which has received Emergency Use Authori zation(EUA) by the U.S. Food and Drug Administration . Fact sheets for this Emergency Use Autho rization (EUA) assay can be found at the following link s: For Healthcare Providers: https://www.fda.gov/media/901388/downloa d For Patients: https://www.fda.gov/media/969160/downloa d SARS Coronavirus 2, Source, Rapid Swab, Nasopharynx 06/04/2022 8:54 AM CDT STMA Specimen Anatomical Collection Method Collection Time Receive d Time (Source) Location / / Volume Laterality 06/04/2022 8:30 AM 8:54 CDT AM CDT Katya Sauer APRN.N.P., D.N.P. LAB MICROB IOLOGY - GENERAL ORDERABLES Performing Organization Address City/State/ZIP Code Phon e Number [facility] - [address] [place], [place] [address] [place] [address] [facility] [address] Clostridioides (Clostridium) difficile Toxin, Molecular Detection, PCR, Feces (06/03/2022 7:42 PM CDT) [facility] Method Time Signature Specimen STOOL 06/04/2022 DTL Source 10:27 PM CDT Result Negative Not Applicable 06/04/2022 DTL 10:27 PM CDT Comment: ----ADDITIONAL INFORMATION---- This test was developed and its performa nce characteristics determined by [facility] in a manner consistent with CLIA requirements. This test has not been cleared or approved by the [place] d and Drug Administration. Specimen Anatomical Collection Method Collection Time Receive d Time (Source) Location / / Volume Laterality Stool (Stool) 06/03/2022 7:42 PM 06/03/20 8:20 CDT PM CDT Isaura A Jodie Aguilar APRNNCr., D.N.P. LAB MICROBIOLOGY - GENERAL ORDERABLES Performing Organization Address City/State/ZIP Code Phon e Number [facility] - [address] [place], [place] [address] [facility] [place] [address] [facility] [address] MR Gynecologic Pelvis without and with IV Contrast (05/23/2022 3:54 PM CDT) Anatomical Region Laterality Modality Pelvis, Abdominal RST LOS, Abdominal ARZ LOS, Abdominal N/A Magnetic Resonance FLA LOS, Musculoskeletal ARZ LOS Specimen (Source) Anatomical Collection Method Collection Time Re ceived Time Location / / Volume Laterality 05/23/2022 3:07 PM CDT Impressions 05/23/2022 3:57 PM CDT Previously noted dilation of the endometrial cavity has resolved. T2 dark lines about the endometrium -- favored to represent scar ring. - Within the uterine fundus the thicknes s of the endometrium is about 0.7 cm with irregular appearance. Consider correlation with hy steroscopy. Narrative 05/23/2022 3:57 PM CDT EXAM: ??MR GYNECOLOGIC PELVIS WITHOUT AND WITH IV CONTRAST COMPARISON: ?? CT 05/14/2022 and other relevant priors. FINDINGS: ?? Previously noted dilation of the endomet rial cavity has resolved. T2 dark lines about the endometrium (12/27) -- favored to represe nt scarring. Within the uterine fundus the thickness of the endometrium is about 0.7 cm with irregul ar appearance. No adnexal mass. Thin- walled urinary bladder. No pelvic adenopathy. 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 No suspicious bone marro w-replacing process. Right hepatic lobe cyst (10/22), otherwise within normal limits the visua lized portions of the upper abdomen parenchymal organs. Above-average colonic stool burden. Nono bstructive visualized intestines. Procedure Note Praful Pimentel M.D. - 05/23/2022Format ting of this note might be different from the original. EXAM: MR GYNECOLOGIC PELVIS WITHOUT AND WITH IV CONTRAST COMPARISON: CT 05/14/2022 and other relevant priors. FINDINGS: Previously noted dilation of the endomet rial cavity has resolved. T2 dark lines about the endometrium (12/27) -- favored to represe nt scarring. Within the uterine fundus the thickness of the endometrium is about 0.7 cm with irregul ar appearance. No adnexal mass. Thin- walled urinary bladder. No pelvic adenopathy. 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 No suspicious bone marro w-replacing process. Right hepatic lobe cyst (10/22), otherwise within normal limits the visua lized portions of the upper abdomen parenchymal organs. Above-average colonic stool burden. Nono bstructive visualized intestines. IMPRESSION: Previously noted dilation of the endomet rial cavity has resolved. T2 dark lines about the endometrium -- favored to represent scar ring. - Within the uterine fundus the thicknes s of the endometrium is about 0.7 cm with irregular appearance. Consider correlation with hy steroscopy. Lizy Fabian M.D. IMG MRI PROCEDURES (ABNORMAL) Glucose, Fasting (05/23/2022 10:11 AM CDT) P athologist Signature Glucose, P 138 (H) 70 - 100 05/23/2022 DTL mg/dL 12:01 PM CDT Last Intake 10 hr 05/23/2022 DTL 10:41 AM CDT Specimen Anatomical Collection Method Collection Time Receive d Time (Source) Location / / Volume Laterality Blood (Blood, 05/23/2022 10:11 05/23/2022 Venous) AM CDT 10:41 AM CDT Lizy Fabian M.D. LAB BLOOD NON ADD-ON Performing Organization Address City/State/ZIP Code Phon e Number [facility] - [address] [place], [place] [address] [facility] [address] [facility] [address] (ABNORMAL) Creatinine with Estimated GFR (05/23/2022 10:11 AM CDT) Analysis Performed At Patho logist Time Signature Creatinine 1.84 (H) 0.59 - 05/23/2022 DTL 1.04 mg/dL 12:04 PM CDT Estimated GFR 31 (L) >=60 05/23/2022 DTL (eGFR) mL/min/BSA 12:04 PM CDT Comment: Estimated GFR calculated using the 2020 CKD_EPI creatinine equation. Specimen Anatomical Collection Method Collection Time Receive d Time (Source) Location / / Volume Laterality Blood (Blood, 05/23/2022 10:11 05/23/2022 Venous) AM CDT 10:41 AM CDT Lizy Fabian M.D. LAB BLOOD ADD-ON Performing Organization Address City/[facility] Code Phon e Number [facility] - [address], [place] [address] [place] [address] Cystatin C with Estimated GFR (05/14/2022 6:41 AM CDT) athologist Signature eGFR by 62 >60 05/14/2022 DT Cystatin C mL/min/BSA 7:48 AM CDT Comment: Estimated GFR calculated using the CKD-E PI Cystatin C (2012) equation. ----ADDITIONAL INFORMATION---- Cystatin C-based eGFR may differ substantially from creatinine- based eGFR in patients with abnormal muscle mass or acutely changing renal function. ??Please interpret together with relevant clinical features. On 01/28/2021 the cystatin C assay method changed. Cystatin C eGFR results > 50 ml/min/1.73m2 are approximately 10% lower with the new assay. Cystatin C 1.13 0.67 - 1.21 mg/L 05/14/2022 7:48 AM CDT DT Specimen Anatomical Collection Method Collection Time Receive d Time (Source) Location / / Volume Laterality Blood (Blood, 05/14/2022 6:41 AM 05/14/20 7:05 Venous) CDT AM CDT Smith Rowland, B.Ch., B.A.O. LAB BLOOD ADD-ON Performing Organization Address City/State/ZIP Code Phon e Number [facility] - [address], [place] [address] [facility] [place] [address] Laboratories-[address] T4 (Thyroxine), Free (05/14/2022 6:41 AM CDT) P athologist Signature T4 (Thyroxine), 1.5 0.9 - 1.7 05/14/2022 DTL Free, S ng/dL 7:48 AM CDT Specimen Anatomical Collection Method Collection Time Receive d Time (Source) Location / / Volume Laterality Blood (Blood, 05/14/2022 6:41 AM 05/14/20 7:05 Venous) CDT AM CDT Smith Rowland, BManpreet., B.A.O. LAB BLOOD ADD-ON Performing Organization Address City/State/ZIP Code Phon e Number [facility] - [address], [place] [address] [facility] [address] [facility] [address] Abdomen Pelvis with IV Contrast (05/14/2022 2:09 AM CDT) Anatomical Region Laterality Modality Abdomen, Pelvis, Abdominal RST LOS, N/A Comp uted Tomography, Computed Abdominal ARZ LOS, Abdominal FLA LOS Ivan ography Specimen (Source) Anatomical Collection Method Collection Time Re ceived Time Location / / Volume Laterality 05/14/2022 2:02 AM CDT Impressions 05/14/2022 10:52 AM CDT 1. No acute findings within the abdomen or pelvis to account for abdominal pain. 2. Focal endometrial thickening can be b chelsey assessed with upcoming scheduled pelvic MRI. 3. Benign-appearing exostosis arising fr om the right pubic body is most consistent with a benign osteochondroma. Comparison with old imag ing would be helpful. Narrative 05/14/2022 10:52 AM CDT EXAM: ??CT ABDOMEN PELVIS WITH IV CONTRAST COMPARISON: ??Outside ultrasound of the pelvis 12/20/2021 FINDINGS: ??The liver, pancreas, spleen, and adrenal glands are unremarkable. Splenule. Left renal cyst. No hydronephrosis. Negative urinar y bladder. No free fluid within the pelvis. 1 cm area of relative endometrial thickening within t he uterine fundus (series 7 image 76), smaller than the area of complex endometrial fluid or thickeni ng shown on prior pelvic ultrasound. Normal caliber bowel. Negative appendix. Normal caliber abdominal aorta. Moderate aortoiliac calcifications. Zlqk-[id number]-hdvpvzeg narrowi ng of the superior mesenteric artery origin (series 7 image 57). No lymphadenopathy within the abdom en or pelvis. Atelectasis in the lung bases. Thoracolu mbar curvature. Old left 11th rib fracture. 2.5 cm exostosis arising from the right pubic body extend ing superiorly and posteriorly into the lower pelvis with resultant mass effect on the urinary josefina dder. This most likely represents an osteochondroma. Procedure Note Petros Marvin M.D. - 05/14/2022Formatti ng of this note might be different from the original. EXAM: CT ABDOMEN PELVIS WITH IV CONTRAST COMPARISON: Outside ultrasound of the pe lvis 12/20/2021 FINDINGS: The liver, pancreas, spleen, a nd adrenal glands are unremarkable. Splenule. Left renal cyst. No hydronephrosis. Negative urinar y bladder. No free fluid within the pelvis. 1 cm area of relative endometrial thickening within t he uterine fundus (series 7 image 76), smaller than the area of complex endometrial fluid or thickeni ng shown on prior pelvic ultrasound. Normal caliber bowel. Negative appendix. Normal caliber abdominal aorta. Moderate aortoiliac calcifications. Bsom-pt-nizrdquh narrowi ng of the superior mesenteric artery origin (series 7 image 57). No lymphadenopathy within the abdom en or pelvis. Atelectasis in the lung bases. Thoracolu mbar curvature. Old left 11th rib fracture. 2.5 cm exostosis arising from the right pubic body extend ing superiorly and posteriorly into the lower pelvis with resultant mass effect on the urinary josefina dder. This most likely represents an osteochondroma. IMPRESSION: 1. No acute findings within the abdomen or pelvis to account for abdominal pain. 2. Focal endometrial thickening can be b chelsey assessed with upcoming scheduled pelvic MRI. 3. Benign-appearing exostosis arising fr om the right pubic body is most consistent with a benign osteochondroma. Comparison with old imag ing would be helpful. Sharlene Guerra, B.Ch., B.A.O. IMG CT PROCEDURES CT Head without IV Contrast (05/14/2022 2:09 AM CDT) Anatomical Region Laterality Modality Head, Neuroradiology RST LOS, N/A Computed T omography, Computed Neuroradiology ARZ LOS, Neuroradiology T omography FLA [facility] Specimen (Source) Anatomical Collection Method Collection Time Re ceived Time Location / / Volume Laterality 05/14/2022 1:58 AM CDT Impressions 05/14/2022 7:28 AM CDT 1. ??No acute intracranial findings. 2. ??Multiple chronic infarcts. 3. 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 Calcifications within the basilar cisterns should be related t o history of chordoma. Narrative 05/14/2022 7:28 AM CDT EXAM: CT HEAD WITHOUT IV CONTRAST COMPARISON: MR brain 09/07/1998. 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 ??Since the prior exam, new areas of encephalomalacia involving the right temporal lobe and ri ght cerebellar hemisphere. Interval development of chronic lacunar infarcts left cerebellar hemisph ere and right basal ganglia. Calcification in the suprasellar cistern, mainly on the left. ??These are greater in extent than on preoperative CT 06/08/1998. Moderate generalized cerebra l volume loss has developed. No acute intracranial hemorrhage, extra- axial collection, or evidence of acute infarct. Arthrosclerotic calcifications of the in tracranial arteries. Moderate mucosal thickening right spheno id sinus with surrounding hyperostosis, including the pterygoid bone. A 1 cm osteoma left mast oid air cells. Procedure Note Anthony Woo M.D. - 05/14/2022Format ting of this note might be different from the original. EXAM: CT HEAD WITHOUT IV CONTRAST COMPARISON: MR brain 09/07/1998. 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 Since the prior exam, new areas of encephalomalacia involving the right temporal lobe and ri ght cerebellar hemisphere. Interval development of chronic lacunar infarcts left cerebellar hemisph ere and right basal ganglia. Calcification in the suprasellar cistern, mainly on the left. These are greater in extent than on preoperative CT 06/08/1998. Moderate generalized cerebra l volume loss has developed. No acute intracranial hemorrhage, extra- axial collection, or evidence of acute infarct. Arthrosclerotic calcifications of the in tracranial arteries. Moderate mucosal thickening right spheno id sinus with surrounding hyperostosis, including the pterygoid bone. A 1 cm osteoma left mast oid air cells. IMPRESSION: 1. No acute intracranial findings. 2. Multiple chronic infarcts. 3. 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 Calcifications within the basilar cisterns should be related t o history of chordoma. Sharlene Guerra, Lance, B.A.O. IMG CT PROCEDURES Peripheral Venous Access (05/13/2022 11:19 PM CDT) Narrative Melany Gonsalves M.D. - 05/13/2022 11:19 PM CDT Melany Gonsalves M.D. ? 05/13/2022 11:19 PM Peripheral Venous Access Date/Time: 05/13/2022 11:19 PM Performed by: Melany Gonsalves M.D. Authorized by: Keysha Trivedi M.D., M. B.A. PROCEDURE DETAILS Ultrasound image guidance used to locali ze target, identify at risk structures, and dynamically used to dire ct therapy to the target. Image(s) not saved. Size (gauge): 20 G Number of attempts: 1 CONSENT Consent obtained: verbal Consent given by: patient The benefits, risks and alternatives to the procedure and the potential need for sedation or anesthesia as well as the names, roles, and responsibilities of healthcare team memb ers performing significant interventional tasks were discussed with the patient and/or decision maker. [employer] All relevant documentation and testing w ere reviewed and available. All required blood products, implants, devic es and or special equipment were made available as applicable. Pre-proced ure verification was conducted and the correct site was marked if required. A fire risk assessment was done as applicable. The procedural time-out t o verify correct patient, correct side/site, and procedure was conducted p rior to performing the procedure and confirmed in a procedural pause. PRE-PROCEDURE DETAILS Indication: IV access needed ?? Provider performed due to: ??Complicated insertion and nurse unable to complete Location: ??Upper extremity Upper extremity: ??Right arm Skin preparation: ??Chlorhexidine SEDATION / ANESTHESIA Anesthesia method: none POST-PROCEDURE DETAILS: Assessment: free fluid flow and no signs of infiltration ?? Procedure completed successfully: yes ?? Complications: no immediate complication s ?? Keysha Trivedi M.D., M.B.A. IV THERAPY ORDERABLES Hepatic Function Panel (05/13/2022 10:02 PM CDT) Patholo gist Method Time Signature Bilirubin, Total, S 0.3 <=1.2 05/13/2022 DTL mg/dL 10:58 PM CDT Bilirubin, Direct, S <0.2 0.0 - 0.3 05/13/2022 DTL mg/dL 10:58 PM CDT Aspartate 22 8 - 43 05/13/2022 DTL Aminotransferase U/L 10:58 PM CDT (AST), S Alanine 18 7 - 45 05/13/2022 DTL Aminotransferase U/L 10:58 PM CDT (ALT), S Alkaline 89 35 - 104 05/13/2022 DTL Phosphatase, S U/L 10:58 PM CDT Albumin, S 4.8 3.5 - 5.0 05/13/2022 DTL g/dL 10:58 PM CDT Protein, Total, S 7.5 6.3 - 7.9 05/13/2022 DTL g/dL 10:58 PM CDT Specimen Anatomical Collection Method Collection Time Receive d Time (Source) Location / / Volume Laterality Blood (Blood, 05/13/2022 10:02 05/13/2022 Venous) PM CDT 10:21 PM CDT Emy Vargas APRN, C.N.P., D.N.P. LAB BLOOD ADD-ON Performing Organization Address City/[facility] Code Phon e Number [facility] - [address], [place] [address] [facility] [place] [address] [facility] [address] [facility] Lactate, POCT (05/13/2022 10:02 PM CDT)Only the most recent of2 resultswithin the time period is included. Analysis Performed At Patho logist Time Signature Lactate, POCT Collected DEFAULT 05/13/2022 SMLX 10:02 PM CDT Specimen Anatomical Collection Method Collection Time Receive d Time (Source) Location / / Volume Laterality Blood (Blood, 05/13/2022 10:02 05/13/2022 Venous) PM CDT 10:02 PM CDT Emy Vargas APRN, C.N.P., D.N.P. LAB POCT ORDERABLE S - DEVICE Performing Organization Address City/State/ZIP Code Phon e Number [facility] - [address], [place] [address] [facility] [place] [address] Laboratories-[address] (ABNORMAL) S-TSH (Thyroid-Stimulating Hormone - Sensitive) (05/13/2022 10:02 PM CDT) P athologist Signature TSH, Sensitive 0.04 (L) 0.3 - 4.2 05/14/2022 DTL mIU/L 1:07 AM CDT Specimen Anatomical Collection Method Collection Time Receive d Time (Source) Location / / Volume Laterality Blood (Blood, 05/13/2022 10:02 05/14/2022 Venous) PM CDT 12:34 AM CDT Abelino Smith M.D., Ph.D. LAB BLOOD ADD-ON Performing Organization Address City/State/ZIP Code Phon e Number [facility] - [address], [place] [address] [facility] [place] [address] Laboratories-[address] DX Chest AP or PA and Lateral 2 Views (05/13/2022 4:53 PM CDT) Anatomical Region Laterality Modality Chest, Thoracic RST LOS, Thoracic ARZ LOS, Thoracic N/A Digital Radiography FLA LOS Specimen (Source) Anatomical Collection Method Collection Time Re ceived Time Location / / Volume Laterality 05/13/2022 5:03 PM CDT Impressions 05/13/2022 5:05 PM CDT Focal airspace opacities in the left upper lung which may be infectious/inflammatory. No pleural effusion or pneumothorax. Kristian cified aorta. Thoracolumbar curve. Narrative 05/13/2022 5:05 PM CDT EXAM: ??DX CHEST AP OR PA AND LATERAL 2 VIEWS Procedure Note Mauricio Milton M.D. - 05/13/2022Forma tting of this note might be different from the original. EXAM: DX CHEST AP OR PA AND LATERAL 2 EWS IMPRESSION: Focal airspace opacities in the left upp er lung which may be infectious/inflammatory. No pleural effusion or pneumothorax. Kristian cified aorta. Thoracolumbar curve. Emy Vargas APRN, C.N.P., D.N.P. IMG DIAGNOSTIC LIZ GING PROCEDURES (ABNORMAL) Bacterial Culture, Aerobic + Susc (05/10/2022 4:57 PM CDT) [facility] Method Time Signature Bacterial MORGANELLA MORGANII 05/17/2022 DTL Culture, 1+ 2:38 PM CDT Aerobic + (A) Susc Comment: Semi-Urgent Result. This organism may contain an inducible b eta-lactamase. Second- or third-generation cephalospori n monotherapy may result in the emergence of high-level resistance. Preferred empiric therapy, p ending antimicrobial susceptibility results, is cefepime, a f luoroquinolone, or a carbapenem, unless clinically contr aindicated. Bacterial Culture, Aerobic + STREPTOCOCCUS ANGINOSUS 05/17/2022 2:38 PM CDT DTL Susc 2+ (A) Comment: Semi-Urgent Result. Susceptibilities not performed per labor atory criteria. Bacterial Culture, Aerobic + KLEBSIELLA VARIICOLA 05/17/2022 2:38 PM CDT DTL Susc From broth only (A) Comment: Semi-Urgent Result. Bacterial Culture, Aerobic + Susc ESCHERICHIA COLI 05/17/2022 2:38 PM CDT DTL From broth only (A) Comment: Semi-Urgent Result. Bacterial Culture, STREPTOCOCCUS CONSTELLATUS 05/05 2:38 PM CDT DTL Aerobic + Susc 1+ (A) Comment: Susceptibilities not performed per laboratory criteria. Semi-Urgent This is a semi-urgent result [facility] - (P[facility]) [facility] Specimen Anatomical Collection Method Collection Time Receive d Time (Source) Location / / Volume Laterality Biopsy 05/10/2022 4:57 PM 2 7:09 (Endometrium) CDT PM CDT Comment: Specimen Source Site: Biopsy Organism Antibiotic Method Susceptibility Morganella morganii Ampicillin SUSCEPTIBILITY, >16 mcg/mL: Resistant ESME (MCG/ML) Morganella morganii Ampicillin + Sulbactam SUSCEPTIBILITY, 16/8 mcg/mL: ESME (MCG/ML) Intermediate Morganella morganii Meropenem SUSCEPTIBILITY, <=0.12 mcg/m L: ESME (MCG/ML) Susceptible Morganella morganii Ertapenem SUSCEPTIBILITY, <=0.25 mcg/m L: ESME (MCG/ML) Susceptible Morganella morganii Piperacillin + Tazobactam SUSCEPTIBILITY, <= 8/4 mcg/mL: ESME (MCG/ML) Susceptible Morganella morganii Ciprofloxacin SUSCEPTIBILITY, <=0.25 mcg/m L: ESME (MCG/ML) Susceptible Morganella morganii Levofloxacin SUSCEPTIBILITY, <=0.5 mcg/mL : ESME (MCG/ML) Susceptible Morganella morganii Cefazolin SUSCEPTIBILITY, >16 mcg/mL: Resistant ESME (MCG/ML) Morganella morganii Ceftriaxone SUSCEPTIBILITY, <=1 mcg/mL: Susceptible ESME (MCG/ML) Morganella morganii Ceftazidime SUSCEPTIBILITY, <=4 mcg/mL: Susceptible ESME (MCG/ML) Morganella morganii Cefepime SUSCEPTIBILITY, <=2 mcg/mL: Susceptible ESME (MCG/ML) Morganella morganii Amikacin SUSCEPTIBILITY, <=8 mcg/mL: Susceptible ESME (MCG/ML) Morganella morganii Gentamicin SUSCEPTIBILITY, <=1 mcg/mL: Susceptible ESME (MCG/ML) Morganella morganii Tobramycin SUSCEPTIBILITY, <=1 mcg/mL: Susceptible ESME (MCG/ML) Morganella morganii Aztreonam SUSCEPTIBILITY, <=4 mcg/mL: Susceptible ESME (MCG/ML) Morganella morganii Trimethoprim + SUSCEPTIBILITY, <=0.5/9.5 mc g/mL: Sulfamethoxazole ESME (MCG/ML) Susceptible Klebsiella variicola Ampicillin SUSCEPTIBILITY, >16 mcg/mL: Resistant ESME (MCG/ML) Klebsiella variicola Ampicillin + Sulbactam SUSCEPTIBILITY, <=8/ 4 mcg/mL: ESME (MCG/ML) Susceptible Klebsiella variicola Meropenem SUSCEPTIBILITY, <=0.12 mcg/ mL: ESME (MCG/ML) Susceptible Klebsiella variicola Ertapenem SUSCEPTIBILITY, <=0.25 mcg/ mL: ESME (MCG/ML) Susceptible Klebsiella variicola Piperacillin + Tazobactam SUSCEPTIBILITY, < =8/4 mcg/mL: ESME (MCG/ML) Susceptible Klebsiella variicola Ciprofloxacin SUSCEPTIBILITY, <=0.25 mcg/ mL: ESME (MCG/ML) Susceptible Klebsiella variicola Levofloxacin SUSCEPTIBILITY, <=0.5 mcg/m L: ESME (MCG/ML) Susceptible Klebsiella variicola Cefazolin SUSCEPTIBILITY, <=2 mcg/mL: Susceptible ESME (MCG/ML) Klebsiella variicola Ceftriaxone SUSCEPTIBILITY, <=1 mcg/mL: Susceptible ESME (MCG/ML) Klebsiella variicola Ceftazidime SUSCEPTIBILITY, <=4 mcg/mL: Susceptible ESME (MCG/ML) Klebsiella variicola Cefepime SUSCEPTIBILITY, <=2 mcg/mL: Susceptible ESME (MCG/ML) Klebsiella variicola Cefdinir SUSCEPTIBILITY, <=1 mcg/mL: Susceptible ESME (MCG/ML) Klebsiella variicola Amikacin SUSCEPTIBILITY, <=8 mcg/mL: Susceptible ESME (MCG/ML) Klebsiella variicola Gentamicin SUSCEPTIBILITY, <=1 mcg/mL: Susceptible ESME (MCG/ML) Klebsiella variicola Tobramycin SUSCEPTIBILITY, <=1 mcg/mL: Susceptible ESME (MCG/ML) Klebsiella variicola Aztreonam SUSCEPTIBILITY, <=4 mcg/mL: Susceptible ESME (MCG/ML) Klebsiella variicola Trimethoprim + SUSCEPTIBILITY, <=0.5/9.5 m cg/mL: Sulfamethoxazole ESME (MCG/ML) Susceptible Escherichia coli Ampicillin SUSCEPTIBILITY, >16 mcg/mL: Res istant ESME (MCG/ML) Escherichia coli Ampicillin + Sulbactam SUSCEPTIBILITY, 16/8 mcg /mL: ESME (MCG/ML) Intermediate Escherichia coli Meropenem SUSCEPTIBILITY, <=0.12 mcg/mL: ESME (MCG/ML) Susceptible Escherichia coli Ertapenem SUSCEPTIBILITY, <=0.25 mcg/mL: ESME (MCG/ML) Susceptible Escherichia coli Piperacillin + Tazobactam SUSCEPTIBILITY, <=8/4 mcg/mL: ESME (MCG/ML) Susceptible Escherichia coli Ciprofloxacin SUSCEPTIBILITY, <=0.25 mcg/mL: ESME (MCG/ML) Susceptible Escherichia coli Levofloxacin SUSCEPTIBILITY, <=0.5 mcg/mL: ESME (MCG/ML) Susceptible Escherichia coli Cefazolin SUSCEPTIBILITY, <=2 mcg/mL: Dena ceptible ESME (MCG/ML) Escherichia coli Ceftriaxone SUSCEPTIBILITY, <=1 mcg/mL: Dena ceptible ESME (MCG/ML) Escherichia coli Ceftazidime SUSCEPTIBILITY, <=4 mcg/mL: Dena ceptible ESME (MCG/ML) Escherichia coli Cefepime SUSCEPTIBILITY, <=2 mcg/mL: Dena ceptible ESME (MCG/ML) Escherichia coli Cefdinir SUSCEPTIBILITY, <=1 mcg/mL: Dena ceptible ESME (MCG/ML) Escherichia coli Amikacin SUSCEPTIBILITY, <=8 mcg/mL: Dena ceptible ESME (MCG/ML) Escherichia coli Gentamicin SUSCEPTIBILITY, <=1 mcg/mL: Dena ceptible ESME (MCG/ML) Escherichia coli Tobramycin SUSCEPTIBILITY, <=1 mcg/mL: Dena ceptible ESME (MCG/ML) Escherichia coli Aztreonam SUSCEPTIBILITY, <=4 mcg/mL: Dena ceptible ESME (MCG/ML) Escherichia coli Trimethoprim + SUSCEPTIBILITY, <=0.5/9.5 mcg/m L: Sulfamethoxazole ESME (MCG/ML) Susceptible Lizy Fabian M.D. LAB MICROBIOLOGY - GENERAL O RDERABLES Performing Organization Address City/State/ZIP Code Phon e Number [facility] - [address] [place], [place] [address] [facility] [place] [address] [facility] [address] from Last 3 Months Insurance Payer Benefit Plan Subscriber ID Effective Phone Address Typ e / Group Dates MEDICARE MEDICARE A [id number] 2007-Prese [address] [place] [address] [facility] MEDICAID [id number] 2021-Prese [phone] [place] [id number] [employer] [address] [address] [place] [address] Advance Directives For more information, please contact: [phone] Documents on File Type Date Recorded Patient Mold Cleaner Explanati on Advance Directives 06/03/2022 6:22 PM POLST/MOLST Advance Directives 12/21/2021 3:14 PM OTHER Advance Directives 12/17/2021 8:27 AM Mikala Soto HCPOA/ADVOCATE/AGENT/REP RESENTATIVE/SURR OGATE Advance Directives 12/17/2021 11:48 AM POLST/MOLS T Latest Code Status on File Code Status Date Activated Date Inactivated Comments DNR/DNI 06/04/2022 4:06 PM 06/08/2022 3:22 PM Full Code 06/03/2022 5:56 PM 06/04/2022 4:06 PM Full Code: Not Discussed Due to: Patient not available DNR/DNI 05/14/2022 5:11 AM 05/15/2022 8:52 PM Healthcare Agents on File Name Relationship Healthcare Agent Communication Relationship Mikala Soto Daughter Health Care Agent [email or web address] Care Teams Reliability Technician Relationship Specialty Start Date End Date Elsewhere, Pcp PCP - General Internal Medicine 06/03/22
--- OUTSIDE RECORDS SUMMARY | 2022-06-10 13:02 | XMS_ITS | Encounter Summary ---
:1960 Author Organization [facility] Address [address] [place] [id number] Care Team Providers Name Role Phone None Reported, Pcp Primary Care Provider Unavailable Reason for Visit Reason Comments Pre-visit Testing Orders Encounter Details Date Type Department Care Team Description 05/17/2022 Clinical Communication RST TITA Jon, Pre-visit Testing [address] [place] [address] Addy Laureano [place], [place] Ruth Ann, M.B.A. [phone] [place] [phone] Social History Tobacco Use Types Packs/Day Years [...] Comprehensive Visit Neurology Zelalem Nicole M.D. [address] [place] [phone] 07/13/2022 Office Visit Gynecology Lizy Fabian M.D. [address] [place] [phone] Scheduled Orders Name Type Priority Associated Diagnoses Order S chedule CBC with Differential, Lab Routine Endometritis Expec haleigh: 05/17/2022 Blood (Approximate), Expires: 08/16/2023 documented as of this encounter Visit Diagnoses Diagnosis Endometritis - Primary documented in this encounter Care Teams Magnetic Resonance Imaging Director Relationship Specialty Start Date End Date None Reported, Pcp PCP - General Family Medicine 05/13/22 documented as of this encounter
--- OUTSIDE RECORDS SUMMARY | 2022-06-10 13:02 | XMS_ITS | Encounter Summary ---
:1960 Author Organization [facility] Address [address] [place] [address] Care Team Providers Name Role Phone None Reported, Pcp Primary Care Provider Unavailable Reason for Referral MRI/CAT/PET Scan (Routine) - Closed Specialty Diagnoses / Procedures Referred By Contact Refer red To Contact Radiology Diagnoses Abnormal Ultrasound Endometrium Infection Urinary Tract Lizy Fabian M.D. [facility] Procedures MR Gynecologic Pelvis without and with IV Contrast MR Pelvis without and with IV Contrast [address] [place] [phone] Referral ID Status Reason Start Date Expiration Date Visits Requ ested Visits Authorized [id number] Closed 05/10/2022 05/10/2023 1 1 Reason for Visit MRI/CAT/PET Scan (Routine) - Closed Specialty Diagnoses / Procedures Referred By Contact Refer red To Contact Radiology Diagnoses Abnormal Ultrasound Endometrium Infection Urinary Tract Lizy Fabian M.D. [facility] Procedures MR Gynecologic Pelvis without and with IV Contrast MR Pelvis without and with IV Contrast [address] [place] [phone] Referral ID Status Reason Start Date Expiration Date Visits Requ ested Visits Authorized [id number] Closed 05/10/2022 05/10/2023 1 1 Encounter Details Date Type Department Care Team Description 05/23/2022 Hospital Encounter Department of Lizy Fabian Ultrasound Endometrium; Radiology, Brandt Solorzano M.D. Infection Urinary Tract Building, in [address] [place] [address] [place] [phone] [place], [place] [phone] (Work) [phone] Social History Tobacco Use Types Packs/Day Years Used Date Smoking Tobacco: Never Smokeless Tobacco: Never Alcohol Use Standard Drinks/Week Comments Never 0 (1 standard drink = 0.6 oz pure alcoho l) Sex Assigned at Date Recorded Not on file documented as of this encounter Medications at Time of Discharge Medication Sig Dispensed Refills Start Date End Date atorvastatin (LIPITOR) 20 mg Take 1 tablet by 0 tablet mouth daily. bisacodyL (DULCOLAX) 5 mg EC TAKE TWO TABLETS BY 0 11/29/2021 tablet MOUTH EVERY DAY 3 NEEDED FOR CONSTIPATION calcium carbonate/vitamin D3 Take 650 mg by 0 09/2021 (CALCIUM 600 + D,3, ORAL) mouth daily. carboxymethylcellulose Administer 1 drop 0 2021 (REFRESH PLUS) 0.5 % into both eyes 4 3 ophthalmic solution (four) times a day. carvediloL (COREG) 3.125 mg Take 3.125 mg by 0 tablet mouth 2 (two) times a day with meals. plysfwvtn-sxbxwtw-ro Administer 2 drops 0 022 sod,bulk, 88.3-11.7 % powder into both eyes daily. cholecalciferol, vitamin D3, Dissolve 125 mcg in 0 12/24/2021 125 mcg (5,000 unit) the mouth daily. 3 tablet,disintegrating clopidogreL (PLAVIX) 75 mg TAKE ONE TABLET BY 0 1 09/15/2014 tablet MOUTH EVERY DAY 3 INDEFINITELY TO PREVENT BLOOD CLOTS AND STROKE. cranberry 500 mg capsule Take 1 tablet by 0 02/18 mouth daily. desmopressin (DDAVP) 10 Administer 10 mcg 0 03/03 mcg/spray (0.1 mL) nasal into one nostril 3 3 spray (three) times a week. 1 spray in each nostril three times a week (Tuesdays, and Sundays in the evening). dextrose 15 gram/33 gram gel Take 15 g by mouth 0 03/04/2022 in packet as needed 3 (hypoglycemia). ferrous sulfate 325 mg (65 Take 325 mg by 0 12/24 mg iron) tablet mouth daily. 3 glucagon (GlucaGen) 1 mg/mL INJECT 1MG 0 12/01/19 injection INTRAMUSCULAR NEEDED FOR LOW BLOOD SUGAR; MAY REPEAT IN 15 MINUTES IF NEEDED glucagon 1 mg Use as directed for 1 each 3 05/23/2022 injectionIndications: low blood sugar. Diabetes Mellitus Drug Or Chemical Induced With Other Complication (HCC) hydrocortisone (CORTAID) 1 % Apply 1 application 0 03/19/2022 cream topically as needed. levothyroxine (SYNTHROID, 75 mcg 6 (six) 0 2021 LEVOTHROID) 75 mcg tablet times a week. Takes at bedtime on an empty stomach. Every day except on Sundays magnesium Take 1 capsule by 0 03/29/2022 02 oxide,aspartate,citr 400 mg mouth daily. 3 magnesium capsule Holding due to diarrhea mineral oil/petrolatum,white Administer 1 drop 0 03/28/2022 (WHITE PETROLATUM-MINERAL into affected OIL OPHT) eye(s) daily. Both eyes mirtazapine (REMERON Dissolve 30 mg in 0 03/12/20 LAMBERTO-TAB) 30 mg the mouth at disintegrating tablet bedtime. am-tn-th0-ynb-ehm-with-lut-z Take 1 capsule by 0 03/12/2022 ea (Ocuvite Adult 50 Plus) mouth daily. 250 mg (90 mg-160 mg) capsule nut.tx.gluc Take 4 oz by mouth 0 02/17/2022 intol,lf,soy-fiber (Glucerna daily. 1 Kristian) 0.04-1 gram-kcal/mL liquid omega 4-ugf-oja-fish oil Take 1,000 mg by 0 09/09 1,000 mg (120 mg-180 mg) mouth daily. capsule polyethylene glycol TAKE 17 GRAMS BY 0 08/18/2021 (MIRALAX) 17 gram/dose oral MOUTH EVERY DAY 3 powder NEEDED FOR CONSTIPATION *MIX IN 4 TO 8 OUNCES OF LIQUID DIRECTED*USE COVER TO MEASURE POWDER* risperiDONE (RisperDAL Dissolve 0.25 mg in 0 03/04 M-TABS) 0.25 mg the mouth at disintegrating tablet bedtime. sennosides (SENOKOT) 8.6 mg Take 17.2 mg by 0 05/2022 tablet mouth every other day. thiamine (VITAMIN B1) 100 mg Take 1 tablet by 0 1 10/19/2020 tablet mouth daily. empagliflozin (JARDIANCE) 10 Take 10 mg by mouth 0 05/05/2022 mg tablet daily. 2 insulin aspart U-100 Inject 1-2 Units 0 1 (NovoLOG FlexPen) 100 under the skin 3 2 unit/mL (3 mL) injection (three) times a day. If glucose greater than 250 insulin glargine (Lantus INJECT 5 UNITS 0 021 Solostar U-100 Insulin) 100 UNDER THE SKIN 2 unit/mL (3 mL) injection EVERY DAY FOR DIABETES -DISCARD PEN 28 DAYS AFTER INITIAL USE insulin lispro (HumaLOG Inject 1 Units 3 mL 11 05/23/20 22 Mendoza KwikPen U-100) 100 under the skin as 2 unit/mL needed (based on injectionIndications: glucose readings). Diabetes Mellitus Drug Or Chemical Induced With Other Complication (HCC) levoFLOXacin (LEVAQUIN) 750 Take 1 tablet (750 14 tablet 0 05/12/2022 mg tablet mg total) by mouth 2 every morning before breakfast for 14 days. metFORMIN XR (GLUCOPHAGE-XR) Take 1,000 mg by 0 0 04/27/2022 500 mg 24 hr tablet mouth daily. 2 predniSONE (DELTASONE) 5 mg 0 10/01/19 tablet 2 documented as of this encounter Nursing Notes Zandra Gallegos R.N. - 05/23/2022 1:45 PM CDT Gel Administration Screening: * If also ordered with Glucagon, perform that screening as well. If not ordered with Glucagon, verify with Technologist if this may have been an oversight and Glucagon is wanted. Does patient have an allergy or sensitivity to Lidocaine or other amide-type (Prilocaine, Mepivacaine, Bupivacaine, Levobupivacaine, Articaine, Ropivacaine) local anesthetics? NO If no... continue If no, administer as ordered and outlined in medication reference document. Glucagon Administration Screening: Does patient have an allergy to glucagon or lactose (e.g. hives, difficulty breathing, anaphylaxis, necrolytic migratory erythema)? Note: nausea vomiting, bloating, and diarrhea are common and expected adverse effects of glucagon and/or lactose intolerance. NO If no???continue. Does patient have a history of insulinoma or phenochromocytoma? NO If no???continue. If yes, discusswith Radiologist. Does patient have diabetes? YES If no.. continue.. If yes??? initiate nurse initiated protocol to order POC blood glucose . If yes and insulin dependent, provide patient with Glucagon Injections if you Have Diabetes card. Please complete for pt when glucagon administered. Pt takes both insulin and oral agents What is patient's glucose? Between 70 and 300 mg/dL - less than 70 treat f using Hypoglycemia Nurse Initiated Protocol - between 70 and 300 administer medication as ordered. - greater than 300 notify radiologist and do not administer medication. Is patient safe to receive Glucagon YES If yes.. Administer Glucagon as outlined in order. Does the patient need to remain NPO following scan for additional appointments today? NO documented in this encounter Plan of Treatment Upcoming Encounters Date Type Specialty Care Team Description 07/01/2022 Clinical Communication Admitting/Central Scheduling 07/04/2022 Comprehensive Visit Neurology Zelalem Nicole M.D. [address] [place] [phone] 07/13/2022 Office Visit Gynecology Lizy Fabian M.D. [address] [place] [phone] documented as of this encounter Procedures Procedure Name Priority Date/Time Associated Comments Diagnosis GYNECOLOGIC RAD - Routine 05/23/2022 3:54 Abnormal Results f or this PELVIS WITHOUT AND (most inpatients PM CDT Ultrasound proce dure are in WITH IV CONTRAST and all Endometrium the results outpatients) Infection Urinary section. Tract GLUCOSE POCT, B Routine 05/23/2022 2:07 Results f or this PM CDT procedure are i n the results section. documented in this encounter Results MR Gynecologic Pelvis without and with IV [...] marro w-replacing process. Right hepatic lobe cyst (2/18), otherwise within normal limits the visua lized [...] marro w-replacing process. Right hepatic lobe cyst (2/), otherwise within normal limits the visua lized [...] steroscopy. Lizy Fabian M.D. IMG MRI PROCEDURES Glucose, POCT (05/23/2022 2:07 PM CDT) athologist Signature Glucose, POCT, 71 70 - 140 05/23/2022 PCMO B mg/dL 2:09 PM CDT Specimen Anatomical Collection Method Collection Time Receive d Time (Source) Location / / Volume Laterality Blood 05/23/2022 2:07 PM 2 2:10 CDT PM CDT Unknown Provider LAB POCT ORDERABLES-MANUAL Performing Organization Address City/State/ZIP Code Phon e Number POC RST GNOSTICISM [address] [place] [address] [facility]S [facility] [place] [address] [facility] [address] documented in this encounter Visit Diagnoses Diagnosis Abnormal Ultrasound Endometrium Infection Urinary Tract documented in this encounter Administered Medications Inactive Administered Medications - up to 3 most recent administrations Medication Order MAR Action Action Date Dose Rate Site gadobutrol injection 0.01-30 mL Given 05/23/2022 3:37 PM CDT 5 m L (GADAVIST) 0.01-30 mL, intravenous, Once in imaging, contrast, Starting on Mon05/23/22 at 1359, For 1 dose, Imaging Protocol Orders, Dose per Radiant Medication Guidelines Intrathecal doses greater than 0.25 mL not recommended. glucagon injection 0.5-1 mg Given 05/23/2022 2:40 PM CDT 1 mg Right Upper Arm (GlucaGen) (Back) 0.5-1 mg, subcutaneous, Once, On Mon05/23/22 at 1400, For 1 dose, Imaging Protocol Orders sodium chloride (PF) 0.9 % injection 1-1 00 mL Given 05/23/2022 3:37 PM CDT 40 mL 1-100 mL, intravenous, Once, On Mon05/23/22 at 1400, For 1 dose, Imaging Protocol Orders ultrasound gel topical gel 60-180 mL Given 05/23/2022 3:19 PM CDT 60 mL 60-180 mL, vaginal, Once, On Mon05/23/22 at 1400, For 1 dose, Imaging Protocol Orders, Dose per Radiant Medication Guidelines documented in this encounter Care Teams Line Assembler Aircraft Relationship Specialty Start Date End Date None Reported, Pcp PCP - General Family Medicine 05/13/22 documented as of this encounter
--- OUTSIDE RECORDS SUMMARY | 2022-06-10 13:02 | XMS_ITS | Encounter Summary ---
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 [facility] [address] [place] [address] Referral ID Status Reason Start Date Expiration Date Visits V isits Requested Authorized [id number] Authorized 05/30/2022 05/30/2023 1 1 Encounter Details Date Type Department Care Team Description 05/30/2022 [facility] James Pike gonadism Pituitary (HCC) (Primary Dx); AND CLINICS Ruth Ann Ruggiero Tumor Brain (HCC); [address] [facility] [address] [facility] Other Specified Diabetes Mellitus Withou t Complications (HCC); [place] [address] [place], [place] Unspecified Behavioral Syndr omes Associated With Physiological Disturbances And Physical Factors; [phone] Personal History Of Other Mental And Beh avioral Disorders Social History Tobacco Use Types Packs/Day Years [...] Visit Neurology Zelalem Nicole M.D. [address] [place] [address] 07/13/2022 Office Visit Gynecology Lizy Fabian M.D. [address] [place] [address] Scheduled Referrals Name Type Priority Associated Diagnoses Order S [facility] Endocrinology Outpatient Routine Hypogonadism Expected: Referral Referral Pituitary (HCC) 05/30/2022 Tumor Brain (HCC ) (Approximate), Other Specified Expires: Diabetes Mellitus 08/29/2023 Without Complications (HCC) Psychiatry & Outpatient Routine Unspecified Expected: Psychology Referral Referral Behavioral Syndromes 05/30/2022 Associated With (Approximate ), Physiological Expires: Disturbances And 08/29/2023 Physical Factors Personal History Of Other Mental And Behavioral Disorders documented as of this encounter Visit Diagnoses Diagnosis Hypogonadism Pituitary (HCC) - Primary Tumor Brain (HCC) Other Specified Diabetes Mellitus Withou t Complications (HCC) Unspecified Behavioral Syndromes Associa haleigh With Physiological Disturbances And Physical Factors Personal History Of Other Mental And Beh avioral Disorders documented in this encounter Additional Health Concerns Infection Onset Date Last Indicated Resolved Time COVID19 Pending 06/04/2022 06/04/2022 06/04/2022 9:17 AM CDT documented as of this encounter Care Teams Caterer Helper Relationship Specialty Start Date End Date Elsewhere, Pcp PCP - General Internal Medicine 06/03/22 documented as of this encounter
--- OUTSIDE RECORDS SUMMARY | 2022-06-10 13:02 | XMS_ITS | Encounter Summary ---
:1960 Author Organization [facility] Address [address] [place] [id number] Care Team Providers Name Role Phone None Reported, Pcp Primary Care Provider Unavailable Reason for Visit Outpatient (Routine) - Closed Specialty Diagnoses / Procedures Referred By Contact Refer red To Contact Endocrinology Diagnoses Diabetes Mellitus Drug Or Chemical Induced With Other Complication (HCC) Lizy Fabian M.D. [facility] [address] [place] [phone] Referral ID Status Reason Start Date Expiration Date Visits Requ ested Visits Authorized [id number] Closed 05/10/2022 05/10/2023 1 1 Encounter Details Date Type Department Care Team Description 05/23/2022 Comprehensive Visit Division of Alhaji Fabian ra, M.D. [address] [place] [phone] Diabetes Mellitus Drug Or Chemical Induc ed With Other Complication (HCC) (Primary Dx); Endocrinology in Leeroy Nair M.D. [address] [place] [phone] Infection Urinary Tract; [place], [place] Endomet[facility] [address] [place] [phone] Social History Tobacco Use Types Packs/Day Years Used Date Smoking Tobacco: Never Smokeless Tobacco: Never Alcohol Use Standard Drinks/Week Comments Never 0 (1 standard drink = 0.6 oz pure alcoho l) Sex Assigned at Date Recorded Not on file documented as of this encounter Consult Notes Leeroy Nair M.D. - 05/23/2022 10:45 AM CDT SUBJECTIVE CHIEF COMPLAINT / REASON FOR VISIT Oneyda Guerrero is a 61 y.o. female who presents for an evaluation of diabetes mellitus. HISTORY OF PRESENT ILLNESS Ms. 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 Has been on levothyroxine, prednisone, DDAVP if her since. Approximately 2 years ago developed diabetes and was placed on metformin. Unfortunately she developed a stroke in early 2020 and then a and has a 2nd stroke in August 2021 which have resulted in someright-sided deficit and some speech deficit. No dysphagia. However the patient has lost weight from a baseline weight of 120 down to a low of 88 currently now on 100 lb. Having trouble maintaining adequate caloric intake and been using supplements like Glucerna. While in the hospital for 1 of multiple genital urinary tract infections both UTIs and most recentlyan endometrial infection. Has been treated with Jardiance and metformin plus Lantus anywhere from 48units plus NovoLog at 2-4 units prior to 2 meals per day. This has resulted in episodes of hypoglycemia. Thus the daughter had discontinued all medications for the last couple weeks including insulin. Patient does wear a [employer] Shama glucose sensor with an average glucose of 172 mg/dL with a 80% capture rate with 59% of glucose is within target (70-180) 39% above in 2% below. The hypoglycemia onlyoccurred while the patient was taking insulin therapy. Also blood sugar stayed within target range when patient's appetite was more suppressed. The patient was in a wheelchair and was not very verbal during the visit daughter was the main historian. A1c levels have been in the the 8.4 to a size 9.2% range. Last A1c was 8.8% on May 14. But she has recently been hospitalized for infections and was dismissed on 05/15 2022. REVIEW OF SYSTEMS REVIEW OF SYSTEMS OBJECTIVE PHYSICAL EXAM Physical Exam General: Patient in no acute distress. She is in a wheelchair and was sleeping throughout the visit. Eye: No icterus Chest: Respirations normal. Extremities: No edema Neuro: Oriented Psych: Mood and affect normal Diagnostics Lab Results Component Value Date GLUCOSE 283 (H) 05/13/2022 GLUCOSEPOC 261 (H) 05/15/2022 HGBA1C 8.8 (H) 05/14/2022 TSH 0.04 (L) 05/13/2022 Lab Results Component Value Date HGBA1C 8.8 (H) 05/14/2022 Lab Results Component Value Date GLUCOSE 283 (H) 05/13/2022 GLUCOSEPOC 261 (H) 05/15/2022 CREATININE 1.14 (H) 05/13/2022 ASSESSMENT / PLAN 1. Type 2 diabetes 2. Panhypopituitary 3. Chronic endometritis 4. Recent UTIs 5. Stage III CKD 6. Recent CVA events 7. Chronic cognitive impairment 8. Hypertension 9. Hyperlipidemia Based on current medical history and blood glucoses by the freestyle Shama I would discontinue the Jardiance since this increases glycosuria significantly and increases the risk of genital urinary tract infections. This has no place than the treatment of this patient. Would also continue not using the metformin at the current time since blood sugars have remained in the target range of 70-180 throughout the entire day off of all medications. Most of this is secondary to poor oral intake. Have encouraged the patient to try to obtain 60 g protein in the diet per day and increase caloric intake by small meals throughout the entire day whether this is using supplements likely Glucerna or regular food. Would not restrict food types at the present time. I did issue a Humalog Mendoza pen which gives 0.5 units. Told the daughter to do is continue and not use a sliding scale that she was given because it is too aggressive. I suggested only using the Humalog if blood sugars steak greater than 250 for greater than 4 hours. That a small dosage of Humalog (for example 0.5-1 unit) could be given in than recheck to be sure that it has drop back to the goal range (100-180) in 2-3 hours. At the present time I do not see a place for ongoing long-acting insulin or other medications. This may changes err oral intake improves but will be able to identify this could rather quickly based on her freestyle Shama readings. As for her drake hypopituitary I would return to the usual replacements which has been desmopressin 0.1 in each nostril on Monday. Prednisone 5 mg each morning and levothyroxine 75 mcg daily except for Monday. Continue appropriate follow-up serum sodium and free T4 levels to be sure that dosages are optimal. Primary care physician at home can do this. We also spoke about stress prednisone dosages if the patient is having acute infection or other situations where that typically the steroid replacement is doubled. IA suggested that the daughter feel free to contact me if any questions arise as a continue to navigate her nutritional intake and her blood sugars. Also issued a glucagon kit just for safety purposes since there has been in the past when she was on Lantus severe episode of hypoglycemia overnight. Patient does not recognize hypoglycemia due to her altered mental status. I had the opportunity to review all this in great detail with the patient's daughter and answered all questions. Total Time: 62 minutes. More than 50% of total time was spent in direct patient counseling or coordination of care. documented in this encounter Plan of Treatment Upcoming Encounters Date Type Specialty Care Team Description 07/01/2022 Clinical Communication Admitting/Central Scheduling 07/04/2022 Comprehensive Visit Neurology Zelalem Nicole M.D. [address] [place] [phone] 07/13/2022 Office Visit Gynecology Lizy Fabian M.D. [address] [place] [phone] documented as of this encounter Visit Diagnoses Diagnosis Diabetes Mellitus Drug Or Chemical Induc ed With Other Complication (HCC) - Primary Infection Urinary Tract Endometritis documented in this encounter Care Teams Digital Technician Relationship Specialty Start Date End Date None Reported, Pcp PCP - General Family Medicine 05/13/22 documented as of this encounter
--- OUTSIDE RECORDS SUMMARY | 2022-06-10 13:02 | XMS_ITS | Encounter Summary ---
:1960 Author Organization [facility] Address [address] [place] [address] Care Team Providers Name Role Phone Elsewhere, Pcp Primary Care Provider Unavailable Reason for Referral Outpatient (Routine) - Authorized Specialty Diagnoses / Procedures Referred By Contact Refer red To Contact Diagnoses Failure To Thrive Adult Decline Functional Status Stroke Cerebrovascular Accident Personal History Lacy Vail P.A.-C., M.S. [address] [place] [phone] Referral ID Status Reason Start Date Expiration Date Visits V isits Requested Authorized [id number] Authorized 06/08/2022 06/08/2023 1 1 Encounter Details Date Type Department Care Team Description 06/03/2022 - Hospital [facility] Trino Guzman M.D. [address] [place] [phone] Failure To Thrive Adult (Primary Dx); [facility] [address] [place] [phone] Decline Functional Status [R53.81 (ICD-1 0-CM)]; [facility] [address] [place] [phone] Stroke Cerebrovascular Accident Personal History Ashli [facility], Fifth Floor [address] [place] [phone] Social History Tobacco Use Types Packs/Day Years [...] Mass Index 19.27 06/04/2022 3:15 PM CDT documented in this encounter Discharge Summaries Lacy Vail P.A.-C., M.S. - 06/08/2022 8:04 AM CDT DISCHARGE SUMMARY BRIEF OVERVIEW Discharge Hospital: [facility] Discharge Provider: Taylor Ivory M.D. Discharge Provider Team: Hospital Internal Medicine (HIM) - [facility] Medicine 11 ([facility]) Primary Care Providers: Elsewhere, Pcp (General) No address on file PCP Phone Number: None PCP Fax Number: None Admission Date: 06/03/2022 Discharge Date: 06/08/22 PRINCIPAL DIAGNOSIS Diarrhea SECONDARY DIAGNOSES Principal Problem (Resolved): Diarrhea Active Problems: Stroke Cerebrovascular Accident Personal History Hypertension Essential Primary Other Hyperlipidemia Diabetes Mellitus Type 2 (HCC) Failure To Thrive Adult Delirium (not otherwise specified) Resolved Problems: Dehydration DISCHARGE DISPOSITION Home or Self Care [1] ACTIVE ISSUES REQUIRING FOLLOW UP Recommendations: 1). Continue meds as prescribed on after visit summary. 2). Follow-up with outpatient Neurology on 06/08/2022, PCP on 06/10/22, and outpatient gynecology. 3). Continue to encourage oral intake to meet caloric needs, physical therapy, and ongoing stroke rehab. 4). Continue previous ancillary services prior to hospitalization including outpatient PT/OT, speechtherapy, stroke rehab, social work, and nursing services. 5). Follow-up repeat blood work at PCP (to include CBC, BMP, magnesium, and phosphorus). 6). Continue to keep a close eye on her bowel movements (last BM 06/04/22); recommend restarting senna, MiraLax, and bisacodyl suppository as needed. 7). Recommend rechecking TSH cascade in 2-4 weeks and ongoing follow-up with Endocrinology. BLOOD GLUCOSE MANAGEMENT: Monitor blood glucose with glucose monitor. Lab Results Component Value Date HGBA1C 8.9 (H) 06/04/2022 - Please follow-up with Dr. Nair for further management of diabetes now that Mrs. Guerrero is eating again. - Please see clinical recommendations for insulin sliding scale and metformin taper Follow-up with primary care provider within 7-10 days of discharge or earlier if blood glucose values are consistently out of goal range. As Diabetes and Nutritional Education is important to your diabetes management, yearly follow up with a local Paper Counter and Dietitian is recommended. Please check with your insurance company asdiabetes education visits are commonly covered. Your primary care provider can provide referrals foreducation. OUTPATIENT FOLLOW UP Scheduled Appointments 06/08/2022 3:00 PM Rona Swann M.D., Ph.D. Neurology 07/13/2022 3:30 PM Lizy Fabian M.D. Gynecology For appointment details refer to your Patient Appointment Guide. TEST RESULTS PENDING AT DISCHARGE Pending Labs Order Current Status Copper In process Zinc In process Bacteria / Bhavin Culture, Blood #1 Preliminary result Bacteria / Bhavin Culture, Blood #2 Preliminary result DETAILS OF HOSPITAL STAY REASON FOR ADMISSION Diarrhea HOSPITAL COURSE Mrs. Oneyda Guerrero is a 61 y.o. female who was referred by Dr. Martinez for direct admission to [facility] from [facility] for evaluation of failure to thrive, diarrheaand dehydration. Mrs. Guerrero had recently completed a two-week course of levofloxacin for endometritis management. Dr. Martinez questions if she has c. Difficile infection and MICKEY related to her diarrhea and decreased oral intake. Other than diarrhea, no signs/symptoms of an active infection. She had MRIgynecologic pelvis with and without contrast on 05/23/2022 which showed resolution of previously noted dilatation of endometrial cavity, no concern for infection at that time. Note that her creatinine was 1.84 on 05/23/2022 and prior creatinine on 05/13/2022 was 1.14 (baseline creatinine 0.66-0.85). 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 Upon admission, routine labs were obtained and notable for improvement in her previous MICKEY (Cr 1.22 down from 1.8), mildly depleted sodium at 134, magnesium of 1.3 (repleted with 4 g magnesium sulfate). C. Difficile test was obtained and found to be negative. She was administered IV fluids for gentle hydration and provided antiemetics for symptom management. Fortunately, the patient had no further episodes of diarrhea since 06/04/22. Her blood cultures have remained negative, and her urinalysis was negative for infection. During her hospitalization, her mentation continued to wax and wane, thought to be multifactorial inthe setting of recent infection, failure to thrive, hypoactive delirium play coupled with exacerbation of her previous cognitive deficits from her previous strokes. She also continued to refuse nursingcares, labs, PT/OT, and medication, with use of multiple bartering/compromising tactics. Metabolic workup essentially negative. Syphilis negative. She did have mild subclinical hyperthyroidism noted onadmission with TSH of 0.2 with adequate T4. Unfortunately, a stroke alert was activated on 06/06/22 due to concerns of new left-sided facial droop, which was not appreciated on prior exams (however, exams had been limited). Repeat head CT and head/neck CT angiogram were negative for acute changes/new infarcts, which is reassuring. Neurology evaluated her and recommended outpatient follow-up as well as ongoing evaluation of stroke etiology. Previous TTE from 08/09/2021, negative for atrial septal defect, agitated saline, negative bubble study, and negative for thrombus. EF at that time was between 55-60%. She continues on Plavix and statin forsecondary prevention. Repeat blood work was also stable. Fortunately, her mentation improved by timeof discharge and was as close to her most recent baseline as possible further supporting hypoactive delirium as a significant culprit. In addition to hypoactive delirium/intermittent encephalopathy, she also experience symptoms of refeeding with magnesium as low as 1.3 and phosphorus 2.1, which were both repleted. By day of discharge her magnesium was 1.8 with phosphorus of 2.3. Would [facility] Her lactate was intermittently elevated to 2.9; however, this could havebeen the setting of refeeding. Repeat lactate came down to 1.6 after 500 cc fluid bolus given. No signs of infection, pain, or hypoperfusion noted. PT and OT were consulted for evaluation of the patient's debility. Occupational therapy recommended ongoing skilled therapy with home health as a reasonable option to obtain this. Physical therapy recommended ongoing therapy with assistance with ADLs/IDALs. Overnight pulse oximetry study was completedand was unremarkable. Prior to discharge, she was afebrile, hemodynamically stable, tolerating a general diet and had return to her functional baseline with the assistance of her daughter. Mrs. Guerrero was discharged home with the support of her daughter (primary care) in stable condition on 06/08/22. She was provided with home health care services. At the time of discharge, the patient was scheduled for a Neurology consultation appointment on 06/08, a primary care provider follow up appointment on 06/10 (with lab work), and gynecology follow up appointment on 07/13. The patient and her daughter were also encouraged to complete the previously scheduled outpatient sleep study following discharge. MEDICATIONS CHANGED DURING THIS HOSPITAL STAY START taking these medications Details ondansetron ODT (ZOFRAN-ODT) 4 mg disintegrating tablet Dissolve 1 tablet (4 mg total) in the mouth every 8 (eight) hours as needed for nausea or vomiting. Qty: 20 tablet, Refills: 0 STOP taking these medications insulin lispro (HumaLOG Mendoza KwikPen U-100) 100 unit/mL injection Comments: Reason for Stopping: CONTINUE these medications which have CHANGED Details insulin aspart U-100 (NovoLOG FlexPen) 100 unit/mL (3 mL) injection Inject based on correction scale. If blood sugar is 200-240 give 1 unit, 241-280 give 2 units, 281-320 give 3 units, 321-360 give 4 units, 361-400 give 5 units. Qty: 15 mL, Refills: 0 metFORMIN XR (GLUCOPHAGE-XR) 500 mg 24 hr tablet Take 2 tablets (1,000 mg total) by mouth 2 (two) times a day with meals. Please start taking 500 mg every morning for 1 week. If you tolerate this, please increase to 500 mg every morning and 500 mg every evening for 1 week. If you tolerate this, please increase to 1000 mg every morning and 500 mg every evening. If you tolerate this, please increase [id number] mg every morning and 1000 mg every evening. If you develop side effects (nausea, diarrhea), please reduce to the dose of metformin that you were able to tolerate. Qty: 120 tablet, Refills: 0 predniSONE (DELTASONE) 5 mg tablet Take 1 tablet (5 mg total) by mouth daily. NOT CHANGED. Dose and route added for clarity. CONTINUE these medications which have NOT CHANGED Details acetaminophen (TYLENOL) 325 mg tablet Take 325 mg by mouth every 4 (four) hours as needed for pain. atorvastatin (LIPITOR) 20 mg tablet Take 1 tablet by mouth daily. calcium carbonate/vitamin D3 (CALCIUM 600 + D,3, ORAL) Take 650 mg by mouth daily. carboxymethylcellulose (REFRESH PLUS) 0.5 % ophthalmic solution Administer 1 drop into both eyes 4 (four) times a day. carvediloL (COREG) 3.125 mg tablet Take 3.125 mg by mouth 2 (two) times a day with meals. nivvcpjiw-uwacrpf-ys sod,bulk, 88.3-11.7 % powder Administer 2 drops into both eyes daily. cholecalciferol, vitamin D3, 125 mcg (5,000 unit) tablet,disintegrating Dissolve 125 mcg in the mouth daily. cinnamon bark 500 mg capsule Take 500 mg by mouth daily. clopidogreL (PLAVIX) 75 mg tablet TAKE ONE TABLET BY MOUTH EVERY DAY INDEFINITELY TO PREVENT BLOOD CLOTS AND STROKE. cranberry 500 mg capsule Take 1 tablet by mouth daily. desmopressin (DDAVP) 10 mcg/spray (0.1 mL) nasal spray Administer 10 mcg into one nostril 3 (three) times a week. 1 spray in each nostril three times a week (Tuesdays, and Sundays in the evening). ferrous sulfate 325 mg (65 mg iron) tablet Take 325 mg by mouth daily. levothyroxine (SYNTHROID, LEVOTHROID) 75 mcg tablet 75 mcg 6 (six) times a week. Takes at bedtime manohar empty stomach. Every day except on Sundays mineral oil/petrolatum,white (WHITE PETROLATUM-MINERAL OIL OPHT) Administer 1 drop into affected eye(s) daily. Both eyes mirtazapine (REMERON LAMBERTO-TAB) 30 mg disintegrating tablet Dissolve 30 mg in the mouth at bedtime. ac-uh-qx9-uyv-kwy-ptze-lut-inga (Ocuvite Adult 50 Plus) 250 mg (90 mg-160 mg) capsule Take 1 capsule by mouth daily. nut.tx.gluc intol,lf,soy-fiber (Glucerna 1 Kristian) 0.04-1 gram-kcal/mL liquid Take 4 oz by mouth daily. nystatin (MYCOSTATIN) 100,000 unit/gram cream Apply 1 application topically every other day. Apply to perineal area for skin breakdown omega 9-dvk-ybl-fish oil 1,000 mg (120 mg-180 mg) capsule Take 1,000 mg by mouth daily. risperiDONE (RisperDAL M-TABS) 0.25 mg disintegrating tablet Dissolve 0.25 mg in the mouth at bedtime. thiamine (VITAMIN B1) 100 mg tablet Take 1 tablet by mouth daily. bisacodyL (DULCOLAX) 5 mg EC tablet TAKE TWO TABLETS BY MOUTH EVERY DAY NEEDED FOR CONSTIPATION dextrose 15 gram/33 gram gel in packet Take 15 g by mouth as needed (hypoglycemia). !! glucagon (GlucaGen) 1 mg/mL injection INJECT 1MG INTRAMUSCULAR NEEDED FOR LOW BLOOD SUGAR; MAYREPEAT IN 15 MINUTES IF NEEDED !! glucagon 1 mg injection Use as directed for low blood sugar. 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 magnesium oxide,aspartate,citr 400 mg magnesium capsule Take 1 capsule by mouth daily. Holding due to diarrhea polyethylene glycol (MIRALAX) 17 gram/dose oral powder TAKE 17 GRAMS BY MOUTH EVERY DAY NEEDED FOR CONSTIPATION *MIX IN 4 TO 8 OUNCES OF LIQUID DIRECTED*USE COVER TO MEASURE POWDER* sennosides (SENOKOT) 8.6 mg tablet Take 17.2 mg by mouth every other day. !! - Potential duplicate medications found. Please discuss with provider. CONSULTS ORDERED DURING THIS ADMISSION IP CONSULT TO DIABETES IP CONSULT TO CARE MANAGEMENT IP CONSULT TO DIETITIAN IP CONSULT TO DESK CLERK IP CONSULT TO PSYCHIATRY & PSYCHOLOGY CONDITION AT DISCHARGE Stable The above plan of care was discussed with Dr. Ivory, HIM actuarial consultant. I saw and evaluated Mrs. Oneyda Guerrero today and provided counseling [id number] at bedside. I, personally, spent a total of greater than 30 minutes in counseling and coordination of care as described above to facilitate the hospital discharge. Discharge instructions were provided to the patient and caregiver(s). documented in this encounter Discharge Instructions Discharge InstructionsMontserrat Miranda M.D. - 06/06/2022 7:25 AM CDT You were discharged from the [place] [id number] ([facility]) Service. Please identify this service name if youcall with questions after hospitalization. BLOOD GLUCOSE MANAGEMENT: Monitor blood glucose Three times daily prior to meals Lab Results Component Value Date HGBA1C 8.9 (H) 06/04/2022 You are being discharged on insulin aspart. You should only take this before a meal if your blood sugar meets the following criteria. If blood glucose is 200-240 give 1 unit 241-280 give 2 units 281-320 give 3 units 321-360 give 4 units 361-400 give 5 units If over 400, please contact your provider We would also like you to resume taking your metformin. Please start taking 500 mg every morning for1 week. If you tolerate this, please increase to 500 mg every morning and 500 mg every evening for 1week. If you tolerate this, please increase to 1000 mg every morning and 500 mg every evening. If you tolerate this, please increase to 1000 mg every morning and 1000 mg every evening. If you develop side effects (nausea, diarrhea), please reduce to the dose of metformin that you were able to tolerate. Follow-up with primary care provider within 7-10 days of discharge or earlier if blood glucose values are consistently out of goal range. As Diabetes and Nutritional Education is important to your diabetes management, yearly follow up with a local Paper Counter and Dietitian is recommended. Please check with your insurance company asdiabetes education visits are commonly covered. Your primary care provider can provide referrals foreducation. Discharge Instr - Gela Lopez, DANIEL - 06/06/2022 4:29 PM CDT Physical Therapy After Visit Summary MOBILITY RESTRICTIONS/PRECAUTIONS: Other Precautions: Fall risk, history of left sided stroke with right side weakness, cognition CURRENT FUNCTIONAL STATUS: Bed Mobility-Supine to Sit # of Assistants: 1 Level of Assistance: Moderate assistance (Daughter performs to assess form) Device: Head of bed elevated, Bed rail Cuing: Verbal, Tactile Transfer-Sit to Stand # of Assistants: 1 Transfer Surface: Bed Transfer Equipment: Gait belt, Front wheeled walker Level of Assistance: Contact guard assistance Bed to Chair/Wheelchair # of Assistants: 2 Transfer Surface: Bed, Chair Transfer Approach: To Transfer Equipment: Front wheeled walker Level of Assistance: Minimal assistance Gait Assessment Distance (m): 1 m Surface: Even, Smooth/hard Device: Gait belt, Front-wheeled walker # of Assistants: 2 Level of Assistance: Minimal assistance Quality/Pattern: Shuffling, Step-to, Festinating (Short steps, shorter on left. Forward flexed posture over the walker.) Stability: Fair with use of 2 wheeled walker Assessment of Gait: Slow, short, shufflling steps. Requires minimal assistance to shift her weight laterally to offload her feet and allow step through. Exhibits frequent freezing of gait. Cueing Provided: Tactile, Verbal RECOMMENDATIONS: Discharge Therapy Needs - PT: Ongoing skilled physical therapy Level of Care Needed - PT: Assistance with transfers (Comment), Assistance with walking and moving around the home, Assistance with bed mobility, Assistance with stairs, Cognitive assistance needed, Physical assistance needed Activity goals discussed with patient's family: -Delirium prevention measures -Wake the patient in the morning with reorientation. -No naps in bed during the day -Limit naps outside of the bed during the day to a total of 1 hour -Engagement in leisure activities throughout the day Recommend delirium prevention measures including: -Lights on/shades open during the day -Limiting sleep disturbances at night -Use of baseline vision/hearing devices(glasses, hearing aids) -Frequent reorientation -Promoting activity/mobility and daily routine throughout the day Discharge information provided on 06/08/2022 Contact information: [facility], [address], AttachmentsThe following attachments cannot be sent through Care Everywhere. Ondansetron (By mouth, Into the mouth) (Djiboutian)documented in this encounter Medications at Time of Discharge Medication Sig Dispensed Refills Start Date End Date acetaminophen (TYLENOL) 325 Take 325 mg by 0 mg tablet mouth every 4 (four) hours as needed for pain. atorvastatin (LIPITOR) 20 mg Take 1 tablet by 0 tablet mouth daily. calcium carbonate/vitamin D3 Take 650 mg by 0 09/2021 (CALCIUM 600 + D,3, ORAL) mouth daily. carboxymethylcellulose Administer 1 drop 0 2021 (REFRESH PLUS) 0.5 % into both eyes 4 3 ophthalmic solution (four) times a day. carvediloL (COREG) 3.125 mg Take 3.125 mg by 0 tablet mouth 2 (two) times a day with meals. xbuzsulnt-sknkqpc-ny Administer 2 drops 0 022 sod,bulk, 88.3-11.7 % powder into both eyes daily. cholecalciferol, vitamin D3, Dissolve 125 mcg in 0 12/24/2021 125 mcg (5,000 unit) the mouth daily. 3 tablet,disintegrating cinnamon bark 500 mg capsule Take 500 mg by 0 mouth daily. clopidogreL (PLAVIX) 75 mg TAKE ONE TABLET [...] week (Tuesdays, and Sundays in the evening). ferrous sulfate 325 mg (65 Take 325 mg by 0 12/24 mg iron) tablet mouth daily. 3 insulin aspart U-100 Inject based on 15 mL 0 06/08/2022 (NovoLOG FlexPen) 100 correction scale. unit/mL (3 mL) injection If blood sugar is 200-240 give 1 unit, 241-280 give 2 units, 281-320 give 3 units, 321-360 give 4 units, 361-400 give 5 units. levothyroxine (SYNTHROID, 75 mcg 6 (six) 0 2021 LEVOTHROID) 75 mcg tablet times a week. Takes at bedtime on an empty stomach. Every day except on Sundays metFORMIN XR (GLUCOPHAGE-XR) Take 2 tablets 120 tablet 0 01/2022 500 mg 24 hr tablet (1,000 mg total) by 2 mouth 2 (two) times a day with [...] metformin that you were able to tolerate. mineral oil/petrolatum,white Administer 1 drop 0 03/28/2022 (WHITE PETROLATUM-MINERAL into affected OIL OPHT) eye(s) daily. Both eyes mirtazapine (REMERON Dissolve 30 mg in 0 03/12/20 22 LAMBERTO-TAB) 30 mg the mouth at disintegrating tablet bedtime. lx-bu-tw1-ygn-ozl-imwd-lut-z Take 1 capsule by 0 03/12/2022 ea (Ocuvite Adult 50 Plus) mouth daily. 250 mg (90 mg-160 mg) capsule nut.tx.gluc Take 4 oz by mouth 0 02/17/2022 intol,lf,soy-fiber (Glucerna daily. 1 Kristian) 0.04-1 gram-kcal/mL liquid nystatin (MYCOSTATIN) Apply 1 application 0 100,000 unit/gram cream topically every other day. Apply to perineal area for skin breakdown omega 6-jbq-lwq-fish oil Take 1,000 mg by 0 09/09 1,000 mg (120 mg-180 mg) mouth daily. capsule ondansetron ODT (ZOFRAN-ODT) Dissolve 1 tablet 20 tablet 0 06/08/2022 4 mg disintegrating tablet (4 mg total) in the mouth every 8 (eight) hours as needed for nausea or vomiting. predniSONE (DELTASONE) 5 mg Take 1 tablet (5 mg 0 06/08/2022 tablet total) by mouth daily. risperiDONE (RisperDAL Dissolve 0.25 mg in 0 03/04 M-TABS) 0.25 mg the mouth at disintegrating tablet bedtime. thiamine (VITAMIN B1) 100 mg Take 1 tablet by 0 1 10/19/2020 tablet mouth daily. bisacodyL (DULCOLAX) 5 mg EC TAKE TWO TABLETS BY 0 11/29/2021 tablet MOUTH EVERY DAY 3 NEEDED FOR CONSTIPATION dextrose 15 gram/33 gram gel Take 15 g by mouth 0 03/04/2022 in packet as needed 3 (hypoglycemia). glucagon (GlucaGen) 1 mg/mL INJECT 1MG 0 12/01/19 22 injection INTRAMUSCULAR NEEDED FOR LOW BLOOD SUGAR; MAY REPEAT IN 15 MINUTES IF NEEDED glucagon 1 mg Use as directed for 1 each 3 05/23/2022 injectionIndications: low blood sugar. Diabetes Mellitus Drug Or Chemical Induced With Other Complication (HCC) hydrocortisone (CORTAID) 1 % Apply 1 application 0 03/19/2022 cream topically as needed. magnesium Take 1 capsule by 0 03/29/2022 02 oxide,aspartate,citr 400 mg mouth daily. 3 magnesium capsule Holding due to diarrhea polyethylene glycol TAKE 17 GRAMS BY 0 08/18/2021 (MIRALAX) 17 gram/dose oral MOUTH EVERY DAY 3 powder NEEDED FOR CONSTIPATION *MIX IN 4 TO 8 OUNCES OF LIQUID DIRECTED*USE COVER TO MEASURE POWDER* sennosides (SENOKOT) 8.6 mg Take 17.2 mg by 0 05/2022 tablet mouth every other day. zinc sulfate (ZINCATE) 220 Take 1 capsule (220 14 capsule 0 06/09/2022 (50 mg zinc) capsule mg total) by mouth 2 daily with breakfast for 14 days. documented as of this encounter Progress Notes Nora Irene O.T. - 06/08/2022 1:17 PM CDT 06/08/22 1401 General Reason Therapy Missed With other discipline (Attempted to see patient this morning but she was busy working with PT. Upon return later, patient had discharged.) Electronically signed by: Nora Irene O.T. 06/08/22 2:02 PM CDT Zayda Seay R.N. - 06/08/2022 12:50 PM CDT REASON FOR VISIT Diabetes education for type 2. Consulted per Diabetes Consult Service to provide Diabetes Education. Educational visit, I met with Mrs. Guerrero and her daughter for review of her insulin program, diabetes overview, and to answer any questions they may have about her diabetes. She will dc home only on a customized Novolog CS TID, and her Metformin, per DCS. PATIENT EDUCATION PROVIDED. Yes education was provided nd they verbalized understanding of information provide. Monitoring: Check your blood sugar TID. Hypoglycemia: parameters, symptoms, and treatment, given. ([id number]) Novolog Correction scale: Customized Novolog TID with meals. Insulin Programs: Novolog: when to check blood sugars before merals. Take your insulin per your AVS,per ([id number]) ASSESSMENT/PLAN I returned today to see if they had any questions on the diabetes education they had reviewed. They had no questions at the present time and understand the changes made to her insulin program. Teofiloida CS has been changed to a customized one for her. Her daughter Mikala helps her with managing her diabetes, insulin, and BS checking. I recommended that if she notices her blood sugar running outside her goal range to give her PCP a call for advice. OUTCOME Inpatient Diabetes Education complete; please re-consult Diabetes Education if further educational needs arise. I encouraged that shlook on her AVS for final insulin CS recommendations. Gela Chilel, SPT - 06/08/2022 9:25 AM CDT Physical Therapy Inpatient Treatment Note SUBJECTIVE Patient's Name: Oneyda Guerrero Referring/Attending: Taylor Ivory M.D. Medical Diagnosis: Failure To Thrive Adult [R62.7] Reason for Referral: PT Evaluate and Treat Onset Date: 06/03/22 Payor: MEDICARE / Plan: MEDICARE A AND B / Product Type: Medicare / History of Present Illness: Mrs. Guerrero is a 61 y.o. female with medical comorbidities including personal history of left-sided CVA, hyperlipidemia, diabetes mellitus type 2, endometritis status post 2 week course of levofloxacin (completed on 05/28). She was evaluated in the infectious disease clinicwhere concern was raised about the possibility of C difficile infection given elevated creatinine to1.84 on 05/23 and reports of worsening diarrhea and failure to thrive that corresponded with administration of antibiotics. Of note, she also had stroke 05/2021 and 08/2021 and her right lower extremity is the most affected. Her daughter is presents and reports that since onset of the infection, she feels that she was making progress during stroke rehab, and has lot a lot of strength since she has beeneating less and vomiting more. Daughter reports that Oneyda has been sleeping most of the day for the past few days. Prior Function/Occupational Profile Dominant Hand: Right Family/Caregiver Present: Yes (Daughter Mikala) Patient/Caregiver Goals: To return to participation in stroke rehab in order to regain her strength and endurance. Daughter's main concerns are transfers and other activities of daily living the patient cannot currently perform to regain her independence. Patient Comments: Patient was sleeping upon arrival, but daughter was agreeable to discussing safetyand other homegoing advice for care of her mother. Precautions Other Precautions: Fall risk, history of left sided stroke with right side weakness, cognition Fall Risk (65 and older) Fall in the last 12 months: Yes Did you have an injury with the fall?: Yes (Black eye, C6 fracture 7 weeks ago- no precautions) Fall Risk Comments: Patient has had falls at home and in the hospital recently OBJECTIVE Vitals taken during session: Post Activity: Pulse rate: 73 bpm Blood Pressure: 129/70 (85) mmHg O2: 98% Room air Comments: Vitals monitored; within normal ranges. Cognition Arousal/Alertness: Inconsistent responses to stimuli Attention: Impairments noted Initiation: Slow/delayed initiation Orientation: Other (Comment) (Patient was verbally re-oriented by therapist x4) Following Commands: Inconsistently following commands, One Step Commands One Step Commands: Follows one step commands with increased time, Follows one step commands with repetition Cognition Comments: Benefitted from short, one step directions with repetition and consistent cues to stay awake and alert. Treatment consisted of: Bed Mobility - Supine to Sit # of Assistants: 1 Level of Assistance: Moderate assistance (Daughter performs to assess form) Device: Head of bed elevated, Bed rail Cuing: Verbal, Tactile Comments: Increased time, moderate assist for leg and trunk management by daughter Bed Mobility - Scooting # of Assistants: 1 Level of Assistance: Maximal assistance Cuing: Verbal, Tactile Comments: Required maximal therapist assist to scoot forward and backwards through facilitation at the hips. Sit to Stand Transfers # of Assistants: 1 Transfer Surface: Bed Transfer Equipment: Gait belt, Front wheeled walker Level of Assistance: Contact guard assistance Assessment/Delivery: Assessed, Facilitated Comments: Patient requires only contact guard assist to stand up from the bed in a lowered position.Performed x1. Did not require cuing to push off with hand from bed. Stand to Sit Transfers # of Assistants: 1 Transfer Surface: Chair Transfer Equipment: Gait belt, Front wheeled walker Level of Assistance: Minimal assistance Assessment/Delivery: Assessed, Therapist assisted, Instructed, Facilitated Comments: Required tactile/verbal cuing and hand over hand repositioning to reach hand back for support. Good eccentric control during descent. Bed, Chair, Wheelchair Transfers # of Assistants: 1 Transfer Surface: Bed, Chair Transfer Approach: To Transfer Equipment: Front wheeled walker Level of Assistance: Minimal assistance Assessment/Delivery: Assessed, Instructed, Therapist assisted, Facilitated Comments: Used tactile cues to facilitate stepping in the proper direction, while another therapist provided lateral shifts to encourage unweighting and moving each leg. Verbal and tactile cues for direction, sequencing, management of the walker, and hand positioning. Verbal commands given for each step. Balance Static Sitting-Balance: Fair (Maintains balance with handheld/contact guard assistance) Dynamic Sitting-Balance: Poor (Requires assistance to maintain balance) Static Standing-Balance: Fair (Maintains balance with handheld/contact guard assistance) Balance Comments: Static sitting balance is good for a few minutes, but then begins to slip as she fatigues. Gait Assessment/Training Distance (m): 1 m Surface: Even, Smooth/hard Device: Gait belt, Front-wheeled walker # of Assistants: 1 Level of Assistance: Minimal assistance Quality/Pattern: Shuffling, Step-to (Short steps, shorter on left. Forward flexed posture over the walker.) Stability: Fair with use of 2 wheeled walker Assessment of Gait: Slow, short, shufflling steps. Requires minimal assistance to shift her weight laterally to offload her feet and allow step through. Cueing Provided: Tactile, Verbal Training/Intervention: Used tactile cues to facilitate stepping in the proper direction, while another therapist provided lateral shifts to encourage unweighting and moving each leg. Verbal and tactilecues for direction, sequencing, management of the walker, and hand positioning. Verbal commands given for each step. Response: Patient has difficulty managing the walker. Needs continuous cues throughout mobility. Activity Tolerance Sitting Tolerance: Able to sit edge of bed independently with minimal to supervision assist for 10-15 minutes. Education provided this session: Education regarding patient's safety, activity, stretches, and mobility going home. Delirium prevention and reversal measures to take with patient. The handout regarding activity guidelines and safety for people with Parkinson's-like symptoms (due to patient's history of stroke damage causing Parkinson's-like presentation) was reviewed with the patient's daughter. The patient/family educated on safe transfer techniques with functional mobility/activity. The following coordination of care occurred today: Patient's nurse was contacted and patient's status was discussed, Discussed patient's care with OT Inpatient AVS Complete - PT: Yes Inpatient AVS Completion Date - PT: 06/08/22 Patient was left in bedside chair at end of session with call light in reach, all needs met and questions answered. Patient instructed to have assistance with mobility. Outcome Measures AM-PAC Inpatient Short Form: AM-PAC Basic Mobility (V.2) How much help from another person do you currently need???If the patient hasn't done an activity recently, how much help from another person do you think he/she would need if he/she tried? 1. Turning from your back to your side while in a flat bed without using bedrails?: A Lot 2. Moving from lying on your back to sitting on the side of a flat bed without using bedrails?: A Lot 3. Moving to and from a bed to a chair (including a wheelchair)?: A Little 4. Standing up from a chair using your arms (e.g., wheelchair, or bedside chair)?: None 5. To walk in hospital room?: A Little 6. Climbing 3-5 steps with a railing?: Total -[facility] Basic Mobility (V.2) Raw Score: 15 -[facility] Basic Mobility (V.2) Standardized Score: 36.97 Interpretation: Clinicians answer the -[facility] Inpatient Short Form based on observed patient activityand/or clinical judgement (ie. patient can be scored without physically performing each activity) According to scoring guidelines: Those going to home had an average score of 20.1 Those going home with home care had an average score of 17.9 Those going to SNF had an average score of 14 Those going to IRF had an average score of 13.6 Those going to a LTAC had an average score of 11.5 Assessment Discharge Therapy Needs - PT: Ongoing skilled physical therapy Skilled therapy can include physical therapy provided by home health, outpatient clinic, or a post-acute facility. The location of these services is determined by the patient's care team in partnershipwith patient/family. Level of Care Needed - PT: Assistance with transfers (Comment), Assistance with walking and moving around the home, Assistance with bed mobility, Assistance with stairs, Cognitive assistance needed, Physical assistance needed Equipment Recommended - PT: Front-wheeled walker, Wheelchair Pt owns Barriers to Discharge Home: Current functional status, Fall risk From a physical therapy perspective, the level of care above has been recommended for Ms. Guerrero after hospital discharge. This level of care is based on her functional abilities during today's session. This may change throughout the hospital course and will be updated as appropriate. Clinical Impression of today's session: Patient is a 61 y.o. female who presents with impairments in functional transfers, gait mechanics, lower extremity strength and force production, balance, cognition, and activity tolerance as compared to baseline mobility status, resulting in the following functional deficits: decreased ability to complete essential functional transfer tasks, stand for household tasks, ambulate household and community distances, and engage in community mobility. Her functional impairments and prior fall history makeher at an increased risk for falls. Patient presents below her functional baseline and is still requiring minimal assist of 1 with use of front wheeled walker and a gait belt while completing functional transfers and mobility. Appointment with today was focused on discharge information with the daughter so that they had all questions answered and all information needed for safe home going. Discussed delirium prevention and reversal measures as well as stretches, fall safety, and activity recommendations for the patient while waiting for home health to be set up. Patient was asleep at the beginning of the visit, but she was aroused detention through the visit in order to participate in activity. She was able to participate with clear, consistent, and simple 1 step commands. She remains most limited at this time by impaired muscular strength and endurance, impaired movement coordination and initiation, and impaired cognition. Patient plan is currently to discharge home with her daughter today. Patient currently requires supervision and assistance for all mobility, and so this plan may be a challenge for the daughter, who isthe primary post graduate internship. All questions regarding patient safety were answered to ensure the best chance for success going forward. Recommend ongoing physical therapy following hospital dismissal to progress independence and safety with transfers. How these needs are met after hospitalization would be best determined in collaboration with the patient/family and our care management team. The patient would be very appropriate for home health therapy that is focused on large, extension-based movements as well as gait training for patients experiencing festination and freezing of gait. At this time, physical therapy will continue working with patient to restore and maximize function, maximize safety, optimize mobility, teach and educate family and/or caregivers, and facilitate return to prior level of function. Rehab potential: Ms. Guerrero has Good potential to achieve established physical therapy goals withinthe time frame outlined below. Progress: Slow progress, cognitive deficits Functional Goals and Timeframes: PT Inpatient Goals PT Goal #1: Patient will be independent with supervision with home exercise program in order to facilitate improvment of strength and return to prior level of function. PT Goal #1 Status: Ongoing PT Goal #2: Patient will demonstrate modified independent bed mobility for improved functional mobility and independence, as well as return to prior level of function. PT Goal #2 Status: Slowly progressing PT Goal #3: Patient will demonstrate transfers using the least restrictive assistive device with supervision to demonstrate improved functional mobility and independence, as well as return to prior level of function. PT Goal #3 Status: Progressing PT Goal #4: Patient will be able to ambulate 20 meters with supervision using the least restrictive assistive device while executing the task with good safety awareness, stability, and functional strength to facilitate safe discharge and return to prior level of function. PT Goal #4 Status: Slowly progressing Plan Treatment Plan: Plan: Continue with current plan PT Frequency: PT Amount: 1 visit per day PT Frequency: 5 times per week PT Inpatient Duration : Until goals are met or hospital discharge Requires Inpatient Follow-Up: Yes PT - Next Inpatient Appointment: 06/08/22 PT Plan Comments: Continue with gait training to encourage larger steps and reduce freezing of gait.Trial use of metronome or other tools for this as needed. stretches to encourage extension, bed mobility, transfers, and extension based strengthening with direct verbal cues for commands. Treatment interventions may include: Treatment/Interventions: Therapeutic exercise, Therapeutic functional activity, Neuromuscular re-education, Gait training, Self-care/home management Billing: Time Spent with Patient Therapeutic Interventions Therapeutic Activity (min): 55 min Time Tracking Total Timed Units (min): 55 min Total Treatment Time (min): 55 min DANIEL Espinosa Associated attestation - Akira San P.T., D.P.T. - 06/08/2022 3:03 PM CDT This therapist has reviewed all documentation and supervised today???s session. The therapist agreeswith the plan developed in collaboration with the patient. Mario Porter, R.N. - 06/08/2022 7:50 AM CDT SUBJECTIVE Referral Data I asked the patient's daughter Mikala about whether or not they would like home healthcare (PT, OT). Mikala says Yes. I sent [facility] referrals. One of the [facility] agencies messaged and state that the patientalready has home healthcare set up at home. I call [facility] [place] and they report that the patient has patient is a patient of theirs with the following services, (Nursing, PT, OT, Home health aid, speech therapy and social work). patient declined additional resources. Anticipated Needs Bathing, Dressing, Grooming/hygeine, Toileting, Transfer to/from bed, chair, etc., Mobility, Meal preparation, Medication set-up/administration, Housekeeping, Shopping, Managing finances, Transportation use (drive car, use taxi/bus) None None Support from family Home or Self Care OBJECTIVE The patient's daughter is the caregiver. ASSESSMENT / PLAN Assessment The Person(s) Present During Interview: familyDaughter appear to have insight into the patient's needs at this time and are planning appropriately for discharge needs. They report agreement with the below plan with no further questions at this time. Plan Patient to discharge with home health care. Home Medical Care - Admitted Since 06/03/2022 Service Provider Selected Services Address Phone Fax Patient Preferred [facility] [address] [place] [id number] [phone] -- Contact: Intake NURSING: - Complete documentation in the Discharge Navigator including Nursing Report Info and Facility/NextLevel of Care Info - Call report and arrange for the patient???s first visit. - Send required packet of dismissal information with patient, including After Visit Summary and advance directive. PRIMARY SERVICE: - Please provide a non-[facility] home health order for resumption of previous services by home health care on the After Visit Summary. If additional services are needed, please provide order. - Communicate with the patient???s local primary care provider by telephone for writing of home care orders. This needs to be done to help prevent discharge delays. A copy of the After Visit Summary needs to be sent there as well. CASE MANAGEMENT: -Reviewed patient's insurance coverage for the services noted above. The daughter Mikala appear(s)to have an understanding of this. -Will continue to follow and assist if needs arise. Mario Porter R.N. 06/08/2022 Taylor Ivory M.D. - 06/07/2022 5:37 PM CDT I saw and evaluated Mrs. Oneyda Guerrero on rounds today with our medicine team. I participated and provided the substantive portion of this shared/split visit with Amelia Araya APRN. I agree with the Advanced-Practice Provider's findings and plan of care, as documented. My assessment and plan are as follows: #1 Stroke Cerebrovascular Accident Personal History #2 Hypertension Essential Primary #3 Other Hyperlipidemia #4 Diabetes Mellitus Type 2 (HCC) #5 Diarrhea #6 Dehydration #7 Failure To Thrive Adult #8 Delirium (not otherwise specified) Mrs. Guerrero is a 61 y.o. female with medical comorbidities including personal history of CVA, hyperlipidemia, diabetes mellitus type 2, endometritis status post 2 week course of bactrim and levofloxacin (completed on 05/28). She was evaluated in the infectious disease clinic where concern was raised about the possibility of C difficile infection given elevated creatinine to 1.84 on 05/23 and reports of worsening diarrhea and failure to thrive that corresponded with administration of antibiotics. C diff is negative. Creatinine has returned to baseline. Patient remains admitted due to concerns about neurologic and cognitive says changes. She underwent stroke workup with no acute stroke findings. 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 We have involved our Neurology and Psychiatry colleagues with no acute concerns or indication for prior workup. If the patient's functional status allows, we will planto discharge this evening. Primary limitation thus far, is the patient's intermittent need for 2 person assist. Overall, favor that the patient will do better in outpatient setting in her house if the level of care is appropriate. She has outpatient follow-up with Neurology scheduled for tomorrow. Shewill require intermittent monitoring for repeating labs based on mild electrolyte abnormalities while inpatient. Home magnesium has been resumed. Please refer to Miguel Araya's note dated today for additional details about our team's plan of care. Amelia Raygoza APRN, C.N.P., D.N.P. - 06/07/2022 2:49 PM CDT [facility] Medicine 11 ([facility]) Progress Notes SUBJECTIVE Mrs. Guerrero was seen in the context of morning rounds. Unfortunately, a stroke alert was activated on the patient last night due to new sided left facial droop at around 1840, which was not appreciated on prior exams (although exams have been limited). She underwent repeat head CT as well as head/neck angiogram which was negative for acute infarct. Neuro evaluated her and recommended outpatient follow-up as well as ongoing evaluation of etiology of her ischemic strokes. Previous TTE was negative for PFO in the past. This morning, she is about to work with physical therapy and appears to be more alert than yesterday. Daughter also endorses that she seems better today. We are currently awaiting morning labs. Will robinson back once physical therapy is done with her session. I have reviewed the current medication list. OBJECTIVE VITAL SIGNS Temperature: [36.3 ??C-36.9 ??C] 36.3 ??C Heart Rate: [82-86] 82 Resp Rate: [15-20] 16 Blood Pressure: (109-154)/(52-83) 117/75 SpO2: [96 %-100 %] 99 % Pulse Rate: [64-85] 64 Intake/Output Last 24 Hours: No intake or output data in the 24 hours ending 06/07/22 1450 PHYSICAL EXAM General: Frail, 61 year old female, mildly disoriented, but resting comfortably in bed Mental: Drowsy and oriented x 1-2. Minimal interaction due to hearing deficit and wanting to sleep. HEENT: trachea midline, pupils PERRL, EOM intact, oral mucosa pink and moist without lesions CV: Regular rate and rhythm; no murmurs, rubs, or gallops PULM: clear to auscultation bilaterally; no rales, rhonchi, or wheezes. Respirations even and non-labored on room air. Abd: Soft, tender to palpation thought to be related to nausea; non-distended. Active bowel sounds Extremities: No appreciable lower extremity edema bilaterally Skin: No new lesions or rashes. Warm, well-perfused. Neuro: Cranial nerves II-XII grossly intact. Motor and sensation symmetric bilaterally in all extremities. DIAGNOSTICS I have personally reviewed labs, diagnostics, electronic health record. ASSESSMENT / PLAN Ms. Guerrero is hospitalized on [facility] Medicine 11 ([facility]) for evaluation and management of: Diarrhea Mrs. 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), history of cerebrovascular infarcts in 2020 (May and August) (lesion in the left basal ganglia with T1 hyperintensity and heterogeneous T2 signal without restricted diffusion which is favored to represent a late subacute/chronic infarct with evolving blood), cognitive impairment, type 2 diabetes (A1c 8.8), CKD stage 3, recurrent urinary tract infections, chronic endometrial infection (initially diagnosed in 2019) complicated by recent hospitalization (05/13-05/15) status post vancomycin, levofloxacin, cefepime and subsequently dismissed with the levofloxacin 750 mg daily (completed 10 course, followed by bactrim due to nausea), hypertension, hyperlipidemia, and hx of multiple cartilage and osteochondral lesions who presents to [facility] as a direct admission from outpatient infectious disease clinic for concerns of dehydration, diarrhea, failure to thrive, and query C difficile. She was recently seen by outpatient infectious disease clinic on 06/03/2022 (with Dr. Martinez) where itwas identified that the patient was not tolerating oral intake due to ongoing emesis in the setting of antibiotics (which were transitioned from Levaquin to Bactrim) as well as 4 days of watery diarrhea. Due to concerns of failure to thrive, and possible C difficile infection, she was ultimately recommended to present to the emergency room for ongoing evaluation. Upon arrival [facility], she remained hemodynamically stable and afebrile. Labs were initially delayed due to patient preference; however, repeat laboratory data demonstrated hemoglobin 11.3 (down from 13.1),platelets 129 (down from 263), sodium 134, BUN 22, creatinine 1.22 (previously 1.8 on 05/23), glucose 178, magnesium 1.3, phosphorus 2.8, and hemoglobin A1c 8.9. Blood cultures negative to date. Urinalysis significant for ketones (5). C difficile negative. She received a 1 L crystalloid due to poor oral intake, with plans of ongoing gentle repletion in the setting of poor oral intake. DCS has been consulted and following closely as well as nutrition. Will consult PT/OT also evaluate for possible outgoing therapy needs. # Altered Mental Status # Intermittent Encephalopathy # Query hypoactive delirium Assessment: Unfortunately, a stroke alert was activated last night due to concerns of new left-sidedfacial droop, which was not appreciated on prior exams (however, exams have been limited). Repeat head CT and head/neck CT angiogram were negative for acute changes/new infarcts, which is reassuring. Neurology evaluated her and recommended outpatient follow-up as well as ongoing evaluation of stroke etiology. Previous TTE from 08/09/2021, negative for atrial septal defect, agitated saline, negative bubble study, and negative for thrombus. EF at that time was between 55-60%. She continues on Plavix and statin for secondary prevention. Repeat blood work today is improved from yesterday, with normaliza tion of lactate from 2.9 to 1.6. Magnesium 1.8 and phosphorus 2.3. Her other labs are stable. She underwent overnight pulse oximetry study as well due to daytime drowsiness, which was unremarkable. Currently, her mentation continues to wax and wane. She also continues to refuse nursing cares, labs, PT/OT, and medication, with use of multiple bartering/compromising tactics. It is unclear if she truly does not want to participate in her current care plan due to a functional component or if it was a mix of functional and cognitive. I do suspect there is a hypoactive delirium at play coupled with exacerbation of her previous cognitive deficits from her previous strokes. Syphilis negative. Metabolic workup essentially negative. She does have a slight subclinical hyperthyroidism, with adequate T4. Addendum at 1300: She had another episode where she became minimally interactive/encephalopathic, while eating lunch in the setting of getting a heparin injection in her arm. She apparently complained of arm pain after the injection, and then became more drowsy and stopped eating her food, according to her daughter. Daughter seemed concerned, as this did not seem to be normal behavior from her mom. Patient was notably encephalopathic upon exam, but arousable and moved all extremities to command.No focal deficits appreciated again, apart from the facial asymmetry (noted previously). Neurology also saw her and did not see any acute changes either, and thought this was hypoactive delirium. Recommendations were to consider Psychiatry consultation. Physical therapy/Occupational therapy were consulted and recommended ongoing therapy. Patient does have several services through the [facility] system in [place] including: Physical therapy, occupational therapy, speech, language, nursing services, and social work. The hope is to discharge her back to these services soon as possible, so she can continue with aggressive stroke rehab and neurology follow-up. Addendum at 1700: Patient re-evaluated and is now alert and oriented times 2-3, and is the most engage I have seen her since her admission. She is currently trying to remove her wristband, saying that she is getting ready to her jacket on. Psychiatry saw her and recommended continuing delirium prevention strategies as well as considering discontinuing risperidone, if in agreement with patient's daughter. They do not believe her current dose of risperidone is contributing to any worsening delirium. Plan: -- appreciate recommendations from Neurology -- psychiatry consulted -- continue outpatient neurology follow-up -- PT/OT evaluation -- delirium management prevention. Fall precautions -- continue home thiamine -- recommend repeat TSH in the next 2-4 weeks # Diarrhea- improved # Dehydration- improved # Nausea with Vomiting- resolved # Failure To Thrive Adult Assessment: Much improved. Last bowel movement on 06/04/22. Nausea is also very minimal. C diff negative. Plan: -- will reinitiate bowel meds gently -- Zofran as needed for nausea -- encourage oral fluids and nutritional intake -- daily weights # Acute on Chronic Endometritis with recent treatment with Levaquin and Bactrim (status post 14 day course) # Polymicrobial Endometrial Cultures from 05/10/22 Assessment: Recently completed therapy 14 day course for endometritis with Levaquin and Bactrim. Shewas a direct transfer from outpatient ID (06/03/22) for concerns of failure to thrive setting nausea/vomiting/diarrhea and concerns for C difficile. C diff came back negative as mentioned above. Illness timeline per note by Dr. Garcia on 05/14/22: September 14 2021: Returned to hospital. CT AP showed 8.8cm mass felt to be within the uterine body. IR guided drain was placed for 3-5 days in [place]. Note negative Chlamydia/Gonorrhea PCR at this time. Cultures grew Enterobacter and Klebsiella. Treated with Ciprofloxacin (prescribed Augmentin but wasunable to take this). November 04: Endometrial biopsy in [place]. This showed predominantly blood and necroinflammatory debris with scattered fragments of hyalinized inflammatory fibro vascular tissue and scant strips of atrophic endometrial tissue. No evidence of hyperplasia or neoplasia. Cultures at this time grew yeast, E. Coli, Klebsiella pneumoniae, viridans group Streptococcus and Enterobacter complex. Ciprofloxacin was continued through the end of November. She also received a course of fluconazole around this time. December 2021: US at [facility] showed intrauterine fluid collection. Exam notable for purulent drainage from endometrial cavity. Repeat endometrial biopsy at [facility] showed inflammation consistent with pyometra. Pyometra drained with cervical dilation. Cultures positive for Enterobacter, Klebsiella, and E. Coli. Comment in notes that treatment was 10-day course of Metronidazole and 2 doses of fluconazole as is the mg as needed [facility]. --> Subsequently, because of failure to thrive and concern for persistent pneumonitis patient wasseen by Gynecology on 05/10/2022 (Dr. Fabian) and underwent an endometrial biopsy and endometrial and urine cultures. Endometrial cultures were polymicrobial including Morganella morganii and the patient was initiated on Levofloxacin following consultation with Infectious Diseases. Recommendation was an appointment in the ID clinic and a pelvic MRI. These were unable to be scheduled on 05/13/22, therefore patient's daughter brought her to the ED due to concerns of sepsis setting of worsening mental status. She was started on Levaquin, with plans of 14 day course. She was discharged back home on 05/14/22. Repeat MRI on 05/23 showed resolution of noted dilation of the endometrial cavity. Plan: -- outpatient Gynecology follow-up for ongoing monitoring -- no indication for further antibiotics per outpatient ID # Diabetes Mellitus Type 2 (HCC) (A1c 8.6) # Malnutrition # Risk for Refeeding # Hypomagnesemia # Hypophosphatemia Assessment: Glucoses continue to be labile in the 130's -260 range. DCS following. Patient was previously on metformin, which is currently being held. There was also question whether or not the metformin was in exacerbator in her diarrhea or if diarrhea with secondary to antibiotics. Fortunately, her appetite is improving and her electrolyte derangement is also closing, with magnesium 1.8 and phosphorus of 2.3 today. Patient has had reported weight loss in the last couple of months due to her recent endometrial infection as well as UTIs and altered mental status. Patient lives with her daughter, so her daughter hastried increase her oral intake has closely monitor her weight. Weight appears to be stable 45 kg with BMI of 20. Plan: -- appreciate DCS recommendations -- continue to hold home metformin while hospitalized -- sliding scale insulin deferred for now per DCS -- continue glargine 4 units daily -- q.i.d. glucose checks -- regular diet for now with glucose range 140-180 -- dietitian following -- primary special educator consulted -- continue boost supplements t.i.d. -- continue home meds: Mirtazapine. Multivitamin -- daily weights -- strict I&Os -- closely monitor for refeeding syndrome with daily BMP, magnesium, and phosphorus while hospitalized # Normocytic anemia # Thrombocytopenia Assessment: Stable and improving, with platelets of 197 today. Hemoglobin stable at 11.5. 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 Her appetite is also much improved despite the intermittentencephalopathy. In regard to her previous stroke history, she appears to have had a stroke in May of 2021, with little to no deficits, followed by another stroke in August 2021 complicated by balance difficulties, expressive aphasia, and cognitive impairment. She follows closely with Endocrinology, with last visit on 05/23/2022. Of note, [facility]; therefore, her desmopressin was recently restarted on 05/24/22. No signs of adrenal insufficiency or hypornatremia. As mentioned above, from a cognitive perspective, this appears to be a mixed picture involving a patient with CVA history coupled with multiple hospitalizations since February (approximately 5) involving infection (endometritis), UTI, altered mental status, hypoglycemia, and hypoactive delirium. Prior to her hospitalization, she had been undergoing aggressive stroke rehab in the outpatient setting at home with home health services involving PT/OT, speech, language, nursing services, and social work through the [facility] in [place]. Plan: -- continue home meds: atorvastatin, calcium, carvedilol, cholecalciferol, clopidogrel, desmopressin, ferrous sulfate, levothyroxine (takes at night), mirtazapine, multivitamin with minerals, prednisone, risperidone, and thiamine Non-severe (moderate) Malnutrition The patient meets the ASPEN Criteria of malnutrition based on: Average estimated Intake: Less than or equal to 50% for 5 or more days Weight Loss: (6% weight loss over the past 2-3 months.) Body Fat: Mild Loss (Visual only) Muscle Mass: Mild Loss (Visual only) This is in the context of Acute Illness or Injury (on chronic illness). Agree with Registered Dietitian's assessment and treatment plan: Interventions: Medical food supplement, Vitamin and mineral supplements, Provide counseling strategies to apply nutrition knowledge Medication reconciliation Home medications continued: Atorvastatin, refresh drops, calcium carbonate/vitamin D, carvedilol, vitamin D, Plavix, desmopressin, ferrous sulfate, Synthroid, mirtazapine, Ocuvite vitamin, nystatin cream, prednisone, risperidone, thiamine, Home medications held: Insulin aspart, MiraLax, magnesium, and metformin New Medications: Subcutaneous heparin, and insulin Current activity/mobility: PAMP Level 3 (walks occasionally, majority of day is spent sitting in chair) Diet: general diet Tubes/lines: PIV VTE prophylaxis: heparin Code status: DNR/DNI Disposition: Home with Home Health Stable to discharge criteria (not yet met): Nutrition/hydration, Urinary/fecal output, Labs, and Functional status The following case was discussed with Dr. Ivory, who agrees with current plan. Counseling was provided [id number] at bedside regarding the plan of care as stated above. I personally spent over half of a total 35 minutes in counseling and coordination of care as documented above. Lou Weems, PharmNatD., R.Ph. - 06/07/2022 2:09 PM CDT Pharmacist Progress Note Reason for admission: Failure to thrive w/ dehydration 2/2 diarrhea PMH: HTN/HLD, Hx CVA (2020), CKD3, panhypopituitarism 2/2 cranial surgery for chondroid chordoma s/pradiation and long-term steroids Recent hospitalization 05/13/22 for endometritis s/p vanco + levofloxacin transitioned to levofloxacinPO (finished 05/28/22) OBJECTIVE Home medications: Per Provider Held: Supplements, metformin (MICKEY), bowel meds (diarrhea) Changed: insulin, bowel regimen, nystatin cream Estimated Creatinine Clearance: 43.4 mL/min (by C-G formula based on SCr of 0.98 mg/dL). Prophylaxis: Heparin SQ - 5,000 Units TID ASSESSMENT / PLAN Query C.diff: Blood cultures and C.diff PCR negative Renal: MICKEY, Scr improved, at baseline from early May. Diabetes: DCS consult, currently on correction scale + glargine 4 units. Appears patient was converted to Humalog JR 2/2 insulin sensitivity. Monitor sugars. FEN: monitor for refeeding and replete as needed Heme: monitor Hgb -dropped today but did get some fluids Med list review: patient refusing several meds today including desmopressin, levothyroxine, PhosNak Changes to medications anticipated at discharge: TBD Lou Weems, PharmNatDNat, R.Ph. [phone] Mario Porter, R.N. - 06/07/2022 1:34 PM CDT SUBJECTIVE Referral Data I asked the patient's daughter Mikala about whether or not they would like home healthcare (PT, OT). Mikala says Yes. I sent [facility] referrals. One of the [facility] agencies messaged and state that the patientaldaryl has home healthcare set up at home. I call [facility] and they report that the patient has patient is a patient of theirs with the following services, (Nursing, PT, OT, Home health aid, speech therapy and social work). patient declined additional resources. Anticipated Needs Bathing, Dressing, Grooming/hygeine, Toileting, Transfer to/from bed, chair, etc., Mobility, Meal preparation, Medication set-up/administration, Housekeeping, Shopping, Managing finances, Transportation use (drive car, use taxi/bus) None None Support from family Home or Self Care OBJECTIVE The patient's daughter is the caregiver. ASSESSMENT / PLAN Assessment The Person(s) Present During Interview: familyDaughter appear to have insight into the patient's needs at this time and are planning appropriately for discharge needs. They report agreement with the below plan with no further questions at this time. Plan Patient to discharge with home health care. Home Medical Care - Admitted Since 06/03/2022 Service Provider Selected Services Address Phone Fax Patient Preferred [facility] [address] [place] [id number] [phone] -- Contact: Intake NURSING: - Complete documentation in the Discharge Navigator including Nursing Report Info and Facility/NextLevel of Care Info - Call report and arrange for the patient???s first visit. - Send required packet of dismissal information with patient, including After Visit Summary and advance directive. PRIMARY SERVICE: - Please provide a non[facility] home health order for resumption of previous services by home health care on the After Visit Summary. If additional services are needed, please provide order. - Communicate with the patient???s local primary care provider by telephone for writing of home care orders. This needs to be done to help prevent discharge delays. A copy of the After Visit Summary needs to be sent there as well. CASE MANAGEMENT: -Reviewed patient's insurance coverage for the services noted above. The daughter Mikala appear(s)to have an understanding of this. -Will continue to follow and assist if needs arise. Mario Porter R.N. 06/07/2022 Chava Rosenthal O.T., O.T.Natasha - 06/07/2022 1:28 PM CDT 06/07/22 1328 Reason Therapy Missed Reason Therapy Missed Medical hold (OT attempted on 2 occasions; first patient eating lunch and second patient found supine with daughter at bedside. Daughter reports patient became unwell passing out during lunch; care team is aware and labs ordered. OT to re-attempt at later time.) Chava Rosenthal O.T., O.T.D. 06/07/2022 Gela Chilel SPT - 06/07/2022 12:00 PM CDT Physical Therapy Inpatient Treatment Note SUBJECTIVE Patient's Name: Oneyda Guerrero Referring/Attending: Taylor Ivory M.D. Medical Diagnosis: Failure To Thrive Adult [R62.7] Reason for Referral: PT Evaluate and Treat Onset Date: 06/03/22 Payor: MEDICARE / Plan: MEDICARE A AND B / Product Type: Medicare / History of Present Illness: Mrs. Guerrero is a 61 y.o. female with medical comorbidities including personal history of left-sided CVA, hyperlipidemia, diabetes mellitus type 2, endometritis status post 2 week course of levofloxacin (completed on 05/28). She was evaluated in the infectious disease clinicwhere concern was raised about the possibility of C difficile infection given elevated creatinine to1.84 on 05/23 and reports of worsening diarrhea and failure to thrive that corresponded with administration of antibiotics. Of note, she also had stroke 05/2021 and 08/2021 and her right lower extremity is the most affected. Her daughter is presents and reports that since onset of the infection, she feels that she was making progress during stroke rehab, and has lot a lot of strength since she has beeneating less and vomiting more. Daughter reports that Oneyda has been sleeping most of the day for the past few days. Prior Function/Occupational Profile Dominant Hand: Right Family/Caregiver Present: Yes (Daughter Mikala) Patient/Caregiver Goals: To return to participation in stroke rehab in order to regain her strength and endurance. Daughter's main concerns are transfers and other activities of daily living the patient cannot currently perform to regain her independence. Patient Comments: Patient was sleeping upon arrival, but daughter agreed that she should be woken toparticipate in PT. Patient was reluctant, but eventually assented after education regarding the importance of physical therapy. Precautions Other Precautions: Fall risk, history of left sided stroke with right side weakness, cognition Fall Risk (65 and older) Fall in the last 12 months: Yes Did you have an injury with the fall?: Yes (Black eye, C6 fracture 7 weeks ago- no precautions) Fall Risk Comments: Patient has had falls at home and in the hospital recently OBJECTIVE Vitals taken during session: Pre-Activity: Pulse rate: 72 bpm Blood Pressure: 141/69 (87) mmHg O2 99%: Room air Post Activity: Pulse rate: 64 bpm Blood Pressure: 117/75 (85) mmHg O2: 99% Room air Comments: Vitals monitored throughout session; nursing notified of patient response to activity. Cognition Arousal/Alertness: Inconsistent responses to stimuli Orientation: Unable to assess Cognition Comments: Difficult to ascertain patient's mental status due to stroke hx, current functional status, somnolence, hearing and language barriers. Benefitted from short, one step directions with repetition and consistent cues to stay awake and alert. Treatment consisted of: Bed Mobility - Supine to Sit # of Assistants: 1 Level of Assistance: Minimal assistance Device: Head of bed elevated, Bed rail Cuing: Verbal, Tactile Comments: Increased time required, minimal assist for leg management and trunk stability. Patient held onto bed rail. Bed Mobility - Scooting # of Assistants: 1 Level of Assistance: Moderate assistance Cuing: Verbal, Tactile Comments: Required moderate therapist assist to scoot forward and backwards through facilitation at the hips with patient lifting. Sit to Stand Transfers # of Assistants: 1 Transfer Surface: Bed, Wheelchair Transfer Equipment: Gait belt, Front wheeled walker Level of Assistance: Contact guard assistance Assessment/Delivery: Assessed, Instructed, Therapist assisted Comments: Patient requires only contact guard assist to stand up from seated from her transport chair or from the bed in a lowered position. Performed x2. Required consistent cuing to use 1 hand to push off from the chair or bed. Stand to Sit Transfers # of Assistants: 1 Transfer Surface: Chair, Wheelchair Transfer Equipment: Gait belt, Front wheeled walker Level of Assistance: Minimal assistance Assessment/Delivery: Assessed, Therapist assisted, Instructed Comments: Required tactile and verbal cuing, as well as occasional hand over hand repositioning, to reach hand back for support. Poor eccentric control during descent, but appears slightly more well controlled than yesterday. Balance Static Sitting-Balance: Fair (Maintains balance with handheld/contact guard assistance) Dynamic Sitting-Balance: Fair (Maintains balance with handheld/contact guard assistance) Static Standing-Balance: Fair (Maintains balance with handheld/contact guard assistance) Dynamic Standing-Balance: Fair (Maintains balance with handheld/contact guard assistance) Gait Assessment/Training Distance (m): 5.5 m (One bout of 4 m, rest break, then 2nd bout of 1.5 m) Device: Gait belt, Front-wheeled walker # of Assistants: 1 Level of Assistance: Minimal assistance Quality/Pattern: Shuffling, Step-to, Festinating (Short steps, shorter on left. Forward flexed posture over the walker.) Stability: Fair with use of 2 wheeled walker Assessment of Gait: Slow, short, shufflling steps. Requires minimal assistance to shift her weight laterally to offload her feet and allow step through. Exhibits frequent freezing of gait. Cueing Provided: Tactile, Verbal Training/Intervention: Lateral weight shifts provided to offload feet and allow stepping. Consistentverbal and tactile cuing to stand up straight and extend her spine and look ahead. Consistent verbaland tactile cuing for larger steps and pushing the walker forward. Response: Patient has difficulty managing the walker, and exhibited ongoing festination of gait and freezing of gait. Upon freezing, responded well to rocking lateral shift or rhythmic tapping/sound from therapist to begin moving again. Activity Tolerance Sitting Tolerance: Able to sit edge of bed independently with contact guard assist for several minutes. Standing Tolerance: Able to stand with contact guard assist and walker for several minutes. Education provided this session: Patient's daughter was educated regarding the kinds of therapies that might be helpful for patients who are exhibiting parkinsonian-like symptoms such as forward flexedposture, festinating and freezing of gait, and inability to speak above a whisper, as the patient appears to be. Also educated on the mechanisms of injury during stroke and possible reasons for symptoms that the patient exhibits. The daughter was given a handout from the [employer] called Parkinson's Disease- Fitness Counts, with the understanding that the physical therapy information inside would be relevant for the patient due to her exhibiting symptoms of parkinsonism, despite not having Parkinson's disease. The following coordination of care occurred today: Patient's nurse was contacted and patient's status was discussed, Discussed patient's care with OT Inpatient AVS Completion Date - PT: 06/07/22 Activity goals discussed with nursing: -Delirium prevention measures -Chair 2-3x/day using walker and gait belt -Social engagement with friends/family (video call etc) -Engagement in leisure activities throughout the day with resources per library. Recommend delirium prevention measures including: -Lights on/shades open during the day -Limiting sleep disturbances at night -Use of baseline vision/hearing devices(glasses, hearing aids) -Frequent reorientation -Promoting activity/mobility and daily routine throughout the day Patient was left in bedside chair and with nursing staff present at end of session with call light in reach, all needs met and questions answered. Patient instructed to have assistance with mobility. Outcome Measures [facility] Inpatient Short Form: -[facility] Basic Mobility (V.2) How much help from another person do you currently need???If the patient hasn't done an activity recently, how much help from another person do you think he/she would need if he/she tried? 1. Turning from your back to your side while in a flat bed without using bedrails?: A Lot 2. Moving from lying on your back to sitting on the side of a flat bed without using bedrails?: A Lot 3. Moving to and from a bed to a chair (including a wheelchair)?: A Lot 4. Standing up from a chair using your arms (e.g., wheelchair, or bedside chair)?: A Little 5. To walk in hospital room?: A Little 6. Climbing 3-5 steps with a railing?: Total -[facility] Basic Mobility (V.2) Raw Score: 13 -[facility] Basic Mobility (V.2) Standardized Score: 33.99 Interpretation: Clinicians answer the -[facility] Inpatient Short Form based on observed patient activityand/or clinical judgement (ie. patient can be scored without physically performing each activity) According to scoring guidelines: Those going to home had an average score of 20.1 Those going home with home care had an average score of 17.9 Those going to SNF had an average score of 14 Those going to IRF had an average score of 13.6 Those going to a LTAC had an average score of 11.5 Assessment Discharge Therapy Needs - PT: Ongoing skilled physical therapy Skilled therapy can include physical therapy provided by home health, outpatient clinic, or a post-acute facility. The location of these services is determined by the patient's care team in partnershipwith patient/family. Level of Care Needed - PT: Assistance with transfers (Comment), Assistance with walking and moving around the home, Assistance with bed mobility, Assistance with stairs, Cognitive assistance needed, Physical assistance needed Equipment Recommended - PT: Front-wheeled walker, Wheelchair Pt owns Barriers to Discharge Home: Current functional status, Fall risk From a physical therapy perspective, the level of care above has been recommended for Ms. Guerrero after hospital discharge. This level of care is based on her functional abilities during today's session. This may change throughout the hospital course and will be updated as appropriate. Clinical Impression of today's session: Patient is a 61 y.o. female who presents with impairments in functional transfers, gait mechanics, lower extremity strength and force production, balance, cognition, and activity tolerance as compared to baseline mobility status, resulting in the following functional deficits: decreased ability to complete essential functional transfer tasks, stand for household tasks, ambulate household and community distances, and engage in community mobility. Her functional impairments and prior fall history makeher at an increased risk for falls. Patient presents below her functional baseline and is still requiring minimal assist of 1 with use of front wheeled walker and a gait belt while completing functional transfers and mobility. She started off our appointment with reticence and desired to go back to sleep, but she was arousable and able to participate with consistent, clear commands. With her daughter's encouragement, she is able to walk very slowly from the bed to the sink and sit to brush her teeth. She is most limited at this time by impaired muscular strength and endurance, impaired movement coordination and initiation, and impaired cognition. The patient seemed to be having more cognitive difficulties today that our appointment yesterday. Her speech remains very soft, and she seemed to perseverate on her IV insertion at different intervals throughout the appointment, not fully recognizing that it was not attached to a line. She requires no translation from the daughter. Patient plan is currently to discharge home with live-in help who will be present when needed, and the daughter and patient are hoping to do so today. Patient currently requires supervision and assistance for all mobility, and so this plan may be a challenge for the daughter, who is the primary post graduate internship. Recommend ongoing physical therapy following hospital dismissal to progress independence and safety with transfers. How these needs are met after hospitalization would be best determined in collaboration with the patient/family and our care management team. The patient would be very appropriate for home health therapy that is focused on large, extension-based movements as well as gait training for patients experiencing festination and freezing of gait. At this time, physical therapy will continue working with patient to restore and maximize function, maximize safety, optimize mobility, teach and educate family and/or caregivers, and facilitate return to prior level of function. Rehab potential: Ms. Guerrero has Good potential to achieve established physical therapy goals withinthe time frame outlined below. Progress: Slow progress, medical status limitations Functional Goals and Timeframes: PT Inpatient Goals PT Goal #1: Patient will be independent with supervision with home exercise program in order to facilitate improvment of strength and return to prior level of function. PT Goal #1 Status: Ongoing PT Goal #2: Patient will demonstrate modified independent bed mobility for improved functional mobility and independence, as well as return to prior level of function. PT Goal #2 Status: Progressing PT Goal #3: Patient will demonstrate transfers using the least restrictive assistive device with supervision to demonstrate improved functional mobility and independence, as well as return to prior level of function. PT Goal #3 Status: Progressing PT Goal #4: Patient will be able to ambulate 20 meters with supervision using the least restrictive assistive device while executing the task with good safety awareness, stability, and functional strength to facilitate safe discharge and return to prior level of function. PT Goal #4 Status: Progressing Plan Treatment Plan: Plan: Continue with current plan PT Frequency: PT Amount: 1 visit per day PT Frequency: 5 times per week PT Inpatient Duration : Until goals are met or hospital discharge Requires Inpatient Follow-Up: Yes PT - Next Inpatient Appointment: 06/08/22 PT Plan Comments: Continue with gait training to encourage larger steps and reduce freezing of gait through use of metronome or other tools, stretches to encourage extension, bed mobility, transfers, and extension based strengthening with direct verbal cues for commands. PM sessions to maximize her participation- patient usually sleeps until 11 or 12 and is noncooperative until then. Treatment interventions may include: Treatment/Interventions: Therapeutic exercise, Therapeutic functional activity, Neuromuscular re-education, Gait training, Self-care/home management Billing: Time Spent with Patient Therapeutic Interventions Gait Training (min): 16 min Therapeutic Activity (min): 25 min Time Tracking Total Timed Units (min): 41 min Total Treatment Time (min): 41 min DANIEL Espinosa Associated attestation - Akira San P.T., Shira.P.T. - 06/08/2022 3:03 PM CDT This therapist has reviewed all documentation and supervised today???s session. The therapist agreeswith the plan developed in collaboration with the patient. Taylor Ivory M.D. - 06/06/2022 7:12 PM CDT Brief Update Note: Patient continued to show signs of encephalopathy with worsening mental status in afternoon. She is difficult to wake up in less interactive with physical and occupational therapy. As such, we obtainedrepeat labs, which demonstrated a decline in her hemoglobin from 12.3-10.4, although note that it was 11.3 on admission. She also is also showing signs of refeeding syndrome, working on repleting electrolytes. Lactate mildly elevated to 2.9. No signs of hypoperfusion, no abdominal pain. Possible lactic acidosis related to refeeding syndrome. Started on IV thiamine as patient has been refusing oral thiamine to help optimize her nutrition status. Giving 500 cc fluid bolus and rechecking lactate. During evaluation this evening, patient was noted to have new onset of facial droop on the left sideby my colleague, Amelia Araya. I was called to bedside to evaluate due to concern for stroke. On arrival, she demonstrated a left-sided facial droop at rest, but this did seem to improve somewhat with active range of motion of the left side of the face. However, she was largely non participatory on exam and she continued to show signs of left-sided facial droop at rest prompting stroke code sebastian initiated. Of note, her baseline neurologic deficits are described as right- sided weakness and instability secondary to cerebellar stroke with some expressive aphasia, but a formal baseline neurologic exam has not been able to be obtained during this admission due to lack of participation from patient. She is on Plavix at baseline and has been on subcutaneous heparin injections for VTE prophylaxis. Platelets are 145. No INR has been obtained during the admission. This may be falsely elevated due to nutritional status. Reviewed echocardiogram report from August 2021, which showed no evidence of inte rarterial shunt by agitated saline or atrial septal defect, but there were some technical difficulties during the TTE. Stroke code activated. Head CT and CT head neck angiogram ordered. Patient going to CT scan with RRTteam and neurology. Rhonda Galvin, RNatN. - 06/06/2022 3:26 PM CDT Educational visit with Mrs. Guerrero and her daughter Mikala for diabetes overview and insulin program change. We discussed DCS's recommendation of discontinuing the basal insulin and using a custom correction scale only at mealtime. The custom correction scale was printed and given to Mikala and we r eviewed this. Metformin taper information was given as well. We discussed foot care and the importance of keeping nails trimmed to prevent infection. We discussed injection technique, optimal metering frequency and hypoglycemia. Oneyda wears the Libre2 which Mikala finds helpful to catch hypoglycemia. Mikala inquired about getting an Rx for Boost drinks, which I deferred to the primary sx for. Allquestions answered at this time. Education complete, reconsult if further education needed. Amelia Araya APRN, C.N.P., D.N.P. - 06/06/2022 2:47 PM CDT [facility] Medicine 11 ([facility]) Progress Notes SUBJECTIVE Mrs. Guerrero was seen in the context of morning rounds. No acute events overnight; however, patient continues to refuse labs and medications per nursing staff. She is minimally interactive this morning, and resting during our interaction. She does move all extremities to command, but appears to not want to be disturbed. Both her noted on her requesting to take her morning meds with lunch today, as this is closer to her normal schedule at home. Her glucoses have remained labile in the 230s-360s, withadjustments in her insulin regimen. Her daughter is very concerned regarding her homegoing insulin due to previous hospitalizations for hypoglycemia/hyperglycemia. We discussed the importance of adequate blood glucose management as well as maintaining caloric intake. We also discussed importance of discharging from the hospital as soon as possible so she can follow-up with outpatient Neurology along with endocrinology, PCP, and ongoing stroke rehab therapy. We will await Physical therapy's recommendations today, and pending results, likely discharge in the next 24 hours. I have reviewed the current medication list. OBJECTIVE VITAL SIGNS Temperature: [36.4 ??C-36.8 ??C] 36.6 ??C Resp Rate: [16] 16 Blood Pressure: (92-148)/(56-76) 114/59 SpO2: [97 %-99 %] 97 % Pulse Rate: [74-87] 74 Intake/Output Last 24 Hours: No intake or output data in the 24 hours ending 06/06/22 1451 PHYSICAL EXAM General: Frail, 61 year old female, mildly disoriented, but resting comfortably in bed Mental: Drowsy and oriented x 1-2. Minimal interaction due to hearing deficit and wanting to sleep. HEENT: trachea midline, pupils PERRL, EOM intact, oral mucosa pink and moist without lesions CV: Regular rate and rhythm; no murmurs, rubs, or gallops PULM: clear to auscultation bilaterally; no rales, rhonchi, or wheezes. Respirations even and non-labored on room air. Abd: Soft, tender to palpation thought to be related to nausea; non-distended. Active bowel sounds Extremities: No appreciable lower extremity edema bilaterally Skin: No new lesions or rashes. Warm, well-perfused. Neuro: Cranial nerves II-XII grossly intact. Motor and sensation symmetric bilaterally in all extremities. DIAGNOSTICS I have personally reviewed labs, diagnostics, electronic health record. ASSESSMENT / PLAN Ms. Guerrero is hospitalized on [facility] Medicine 11 ([facility]) for evaluation and management of: Diarrhea Mrs. 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), history of cerebrovascular infarcts in 2020 (May and August) (lesion in the left basal ganglia with T1 hyperintensity and heterogeneous T2 signal without restricted diffusion which is favored to represent a late subacute/chronic infarct with evolving blood), cognitive impairment, type 2 diabetes (A1c 8.8), CKD stage 3, recurrent urinary tract infections, chronic endometrial infection (initially diagnosed in 2019) complicated by recent hospitalization (05/13-05/15) status post vancomycin, levofloxacin, cefepime and subsequently dismissed with the levofloxacin 750 mg daily (completed 10 course, followed by bactrim due to nausea), hypertension, hyperlipidemia, and hx of multiple cartilage and osteochondral lesions who presents to [facility] as a direct admission from outpatient infectious disease clinic for concerns of dehydration, diarrhea, failure to thrive, and query C difficile. She was recently seen by outpatient infectious disease clinic on 06/03/2022 (with Dr. Martinez) where itwas identified that the patient was not tolerating oral intake due to ongoing emesis in the setting of antibiotics (which were transitioned from Levaquin to Bactrim) as well as 4 days of watery diarrhea. Due to concerns of failure to thrive, and possible C difficile infection, she was ultimately recommended to present to the emergency room for ongoing evaluation. Upon arrival [facility], she remained hemodynamically stable and afebrile. Labs were initially delayed due to patient preference; however, repeat laboratory data demonstrated hemoglobin 11.3 (down from 13.1),platelets 129 (down from 263), sodium 134, BUN 22, creatinine 1.22 (previously 1.8 on 05/23), glucose 178, magnesium 1.3, phosphorus 2.8, and hemoglobin A1c 8.9. Blood cultures negative to date. Urinalysis significant for ketones (5). C difficile negative. She received a 1 L crystalloid due to poor oral intake, with plans of ongoing gentle repletion in the setting of poor oral intake. DCS has been consulted and following closely as well as nutrition. Will consult PT/OT also evaluate for possible outgoing therapy needs. # Diarrhea- improved # C difficile negative # Dehydration # Nausea with Vomiting # Failure To Thrive Adult # Altered Mental Status # Query hypoactive delirium # Chronic Endometritis with recent treatment with Levaquin and Bactrim (status post 14 day course) Assessment: Mentation continues to wax and wane. She also continues to refuse nursing cares, labs, PT/OT, and medication, with use of multiple bartering/compromising tactics. It is unclear if she trulydoes not want to participate in her current care plan due to a functional component or if it was a mix of functional and cognitive. I do suspect there is a hypoactive delirium at play coupled with exacerbation of her previous cognitive deficits from her previous strokes. Repeat labs from yesterday showed improvement in sodium to 136 (from 134), creatinine of 1.0, magnesium 2.0, phosphorus 2.5, and platelets 142 (up from 129). Her iron studies were unremarkable, with normal B12 and folate. Blood cultures remain negative to date. UA negative. C difficile negative. Her altered mental status also appears to be multifactorial with her personal history of 2 x strokesin 2020, recent infection, query hypoactive delirium, and query sleep apnea. According to her daughter, she has had daytime drowsiness for some time now, and is set up for an outpatient sleep study. She has no focal deficits which is reassuring. We will check a VBG to ensure she is not retaining CO2 along with ammonia level. We are hopeful with adequate fluid repletion, nutrition consult, sleep enhancement, and PT/OT eval that we will be able to discharge her back home with her daughter in the next 24-48 hours. In regard to her endometriosis, she has completed therapy with no further role of antibiotics at this time. Will also pursue PT/OT evaluation due to her debility and failure to thrive. Addendum at 6:00 p.m.: Repeat blood work this afternoon significant for elevated lactate of 2.9 (up from 1.9) with unclear etiology as well as drop in hemoglobin to 10.4 (from 12.3-->11.3) with no signs of bleeding. VBG unremarkable. Magnesium 1.5 and phosphorus 2.1. She continues remain intermittently encephalopathic. Will replete with 500 cc fluid bolus as well as repeat lactate at 10:00 p.m.. Will consider abdominal imaging given recent endometritis (although she is currently denying any pain). Update as of 18:15: Patient was evaluated at the bedside, and was found to be eating dinner with lalit at her side. During our interaction, she was noted to have new left facial droop, which wasnot appreciated before. Daughter also confirms this to be a new finding as well. Daughter reports her mom had a headache a couple hours ago, which the she thought was related to high glucose levels (300). Headache has since resolved. Patient denies any double vision, but does endorse right eye cataract. No new numbness/tingling or weakness appreciated by the patient, apart from baseline right-sided lower extremity weakness. Neuro exam was limited due to patient participation, but did not demonstrateany overt deficits apart from her left sided facial asymmetry. She did have slight pronator drift onthe right side; however, this was difficult to ascertain given she is quite at baseline. Interestingly, with repositioning, her facial droop seem to improve a bit, but was still present. Given concern for stroke, an [employer] was called and stroke alert was activated. Emergent head CT and head/neck angiogram ordered. Will follow-up Plan: -- repeat CBC, BMP, VBG, and lactate -- continue ondansetron as needed for nausea/vomiting -- encourage oral fluids and nutritional intake -- PT/OT evaluation -- encourage activity as tolerated -- delirium management prevention. Fall precautions -- follow-up nocturnal oximetry interpretation -- follow-up outpatient sleep study -- recommend outpatient neurology follow-up (scheduled for 06/08) -- low threshold to repeat CT head imaging as well as Neurology consultation if neuro status is not improved by tomorrow. # Diabetes Mellitus Type 2 (HCC) # Malnutrition # Risk for Refeeding Assessment: Glucoses continue to be labile in the 230's -340 range. DCS following. Patient was previously on metformin, which is currently being held. There was also question whether or not the metformin was in exacerbator in her diarrhea or if diarrhea with secondary to antibiotics. Patient has had reported weight loss in the last couple of months due to her recent endometrial infection as well as UTIs and altered mental status. Patient lives with her daughter, so her daughter hastried increase her oral intake has closely monitor her weight. DCS following. Weight appears to be stable 45 kg with BMI of 20. Plan: -- appreciate DCS recommendations -- continue to hold home metformin while hospitalized -- sliding scale insulin deferred for now per DCS -- continue glargine 4 units daily -- q.i.d. glucose checks -- regular diet for now with glucose range 140-180 -- dietitian following -- primary special educator consulted -- continue boost supplements t.i.d. -- continue home meds: Mirtazapine. Multivitamin -- daily weights -- strict I&Os -- closely monitor for refeeding syndrome with daily BMP, magnesium, and phosphorus while hospitalized # Normocytic anemia # Thrombocytopenia Assessment: Stable and improving, with platelets of 142 today. Hemoglobin stable at 12.3. 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 In regard to her previous stroke history, she appears to have had a stroke in May of 2021, with little to no deficits, followed by another stroke in August 2021 complicated by balance difficulties, expressive aphasia, and cognitive impairment.She follows closely with Endocrinology, with last visit on 05/23/2022. Of note, patient had not taken her desmopressin for approximately 3 weeks due to the MD discontinuing this in late April; therefore, her desmopressin was recently restarted on 05/24/22. No signs of adrenal insufficiency or hypornatremia. As mentioned above, from a cognitive perspective, this appears to be a mixed picture involving a patient with CVA history coupled with multiple hospitalizations since February (approximately 5) involving infection (endometritis), UTI, altered mental status, hypoglycemia, and hypoactive delirium. She does not appear to have any red flags or new finding, apart from her baseline function. However, she does warrant a follow-up with Neurology for ongoing monitoring. Repeat head CT in early May was unrevealing of any new infarcts, which is reassuring. Prior to her hospitalization, she had been undergoing aggressive stroke rehab in the outpatient setting at home with home health services involving PT/OT, speech, language, nursing services, and social work through the [facility] in [place]. --> Of note, patient had not taken her desmopressin for approximately 3 weeks due to [facility]; therefore, her desmopressin was recently restarted on 05/24/22. No signs of adrenal insufficiency or hypernatremia. Plan: -- follow-up repeat labs (mentioned above) -- continue home meds: atorvastatin, calcium, carvedilol, cholecalciferol, clopidogrel, desmopressin, ferrous sulfate, levothyroxine (takes at night), mirtazapine, multivitamin with minerals, prednisone, risperidone, and thiamine Non-severe (moderate) Malnutrition The patient meets the ASPEN Criteria of malnutrition based on: Average estimated Intake: Less than or equal to 50% for 5 or more days Weight Loss: (6% weight loss over the past 2-3 months.) Body Fat: Mild Loss (Visual only) Muscle Mass: Mild Loss (Visual only) This is in the context of Acute Illness or Injury (on chronic illness). Agree with Registered Dietitian's assessment and treatment plan: Interventions: Medical food supplement, Vitamin and mineral supplements, Provide counseling strategies to apply nutrition knowledge Medication reconciliation Home medications continued: Atorvastatin, refresh drops, calcium carbonate/vitamin D, carvedilol, vitamin D, Plavix, desmopressin, ferrous sulfate, Synthroid, mirtazapine, Ocuvite vitamin, nystatin cream, prednisone, risperidone, thiamine, Home medications held: Insulin aspart, MiraLax, magnesium, and metformin New Medications: Subcutaneous heparin, and insulin Current activity/mobility: PAMP Level 3 (walks occasionally, majority of day is spent sitting in chair) Diet: general diet Tubes/lines: PIV VTE prophylaxis: heparin Code status: DNR/DNI Disposition: Home with Home Health Stable to discharge criteria (not yet met): Nutrition/hydration, Urinary/fecal output, Labs, and Functional status The following case was discussed with Dr. Ivory, who agrees with current plan. Counseling was provided [id number] at bedside regarding the plan of care as stated above. I personally spent over half of a total 35 minutes in counseling and coordination of care as documented above. Chava Rosenthal O.T., O.T.D. - 06/06/2022 2:35 PM CDT 06/06/22 1516 Reason Therapy Missed Reason Therapy Missed With other discipline (OT attempted twice; first attempt patient was found eating and second attempt she was with PT. Daughter would like home health services set up and describes having the assistive equipment needed for discharge. OT will attempt again at later time.) Taylor Ivory M.D. - 06/06/2022 2:16 PM CDT I saw and evaluated Mrs. Oneyda Guerrero on rounds today with our medicine team. I participated and provided the substantive portion of this shared/split visit with Amelia Araya APRN. I agree with the Advanced-Practice Provider's findings and plan of care, as documented. My assessment and plan are as follows: #1 Stroke Cerebrovascular Accident Personal History #2 Hypertension Essential Primary #3 Other Hyperlipidemia #4 Diabetes Mellitus Type 2 (HCC) #5 Diarrhea #6 Dehydration #7 Failure To Thrive Adult Mrs. Guerrero is a 61 y.o. female with medical comorbidities including personal history of CVA, hyperlipidemia, diabetes mellitus type 2, endometritis status post 2 week course of bactrim and levofloxacin (completed on 05/28). She was evaluated in the infectious disease clinic where concern was raised about the possibility of C difficile infection given elevated creatinine to 1.84 on 05/23 and reports of worsening diarrhea and failure to thrive that corresponded with administration of antibiotics. C diff is negative. Creatinine has returned to baseline. Patient admitted with nausea, diarrhea, and failure to thrive. Her nausea has been well controlled with p.r.n. antiemetics. Diarrhea has resolved without intervention. C diff is negative. Weight is stable with BMI 20.03. Weight trend is stable. Hypomagnesemia present on admission in setting of noncompliance with home oral regimen due to diarrhea. This has been corrected and very mild hyponatremia hasresolved. No other electrolyte abnormalities. Regarding mental status, her daughter describes a chronic decline in cognitive status that was heightened over the past couple weeks in setting of endometritis then worsening nausea and diarrhea. During the admission, the patient has had fluctuating mentation suggestive of a hypoactive delirium picture with in the setting of a history of CVA, outside diagnosis of frontotemporal dementia, and drake hypopituitarism. There appears to be a behavioral component as well with lack of patient cooperation. Evaluated for organic causes without clear endocrine speedboat driver (TSH mildly reduced, but improved from priorand normal free T4). Ammonia, VBG within normal limits. No focal deficits although patient intermittently participates on exam. She has scheduled neurology evaluation on Monday in the outpatient setting. In absence of red flag symptoms, will discharge with plan for neurology follow up to reassess mentation in normal home environment. Working to establish safe home going plan with patient's daughter and therapy services. Please refer to Amelia Araya APRN's note dated today for additional details about our team's plan of care. Neelam Portillo M.D., Ph.D. - 06/06/2022 1:31 PM CDT Diabetes Consulting Service Progress Note SUBJECTIVE LOS: 3 days DCS continues to follow this 61 y.o. year-old female for diabetes admitted on 06/03/2022 for diarrhea, dehydration, and AMS. Mrs. Guerrero was visited in her room this morning and is accompanied by her daughter. We discussed at length the prior episodes of hypoglycemia and prior insulin treatments. Her daughter is understandably concerned about insulin dosing due to the hypoglycemia that occurred previously. Her daughter is also concerned about any medications that may be contributing to her PREADMISSION THERAPY: metformin 1000 mg daily Humalog mendoza pen prescribed which gives 0.5 units with instruction to use 0.5 -1 if glucose remained 250 greater than 4 hours. She was not able to spanish moss picker this pen due to insurance coverage and has not used it. OBJECTIVE Patient is Resting in bed. Family is present at the bedside. Reviewed hospital insulin regimen. Reviewed dismissal plan. She is breathing comfortably on room air. Her abdomen is soft nondistended. No lower extremity edema noted. No lipohypertrophy of the abdomen. Feet are warm and well perfused without ulcers. She does have long toenails on her feet. Blood glucose results in last 24 hours: Recent Labs 06/05/22 1617 GLUCOSE 302 H Latest Reference Range & Units 06/05/22 16:26 06/05/22 19:29 06/06/22 09:10 06/06/22 13:09 Glucose, POCT, B 70 - 140 mg/dL 366 (H) 257 (H) 235 (H) 180 (H) (H): Data is abnormally high Yesterday, given: Lantus 3 units daily and NovoLog 8 units total for the correction of hyperglycemia. Steroids: Prednisone 5mg Current Diet Adult Diet Regular starting at 06/03 1855 VITALS Temperature: 36.6 ??C Resp Rate: 16 Blood Pressure: 114/59 BP Location: Left arm SpO2: 97 % Height: 149.9 cm Weight: 45 kg Body mass index is 20.03 kg/m??. LABORATORY Lab Results Component Value Date CREATININE 1.00 06/05/2022 Estimated Creatinine Clearance: 42.5 mL/min (by C-G formula based on SCr of 1 mg/dL). ASSESSMENT / PLAN #1 Diabetes mellitus, type 2, uncontrolled with hypoglycemia, A1c 8.8 # Type 2 Diabetes Mellitus with episodes of hyperglycemia # Type 2 Diabetes Mellitus with episodes of hypoglycemia # Panhypopituitarism # Chronic steroid use # Cognitive Impairment # CKD stage 3 # Hypertension # Chronic endometritis # Recurrent UTIs Mrs. Guerrero continues to have labile blood sugars requiring corrections. She was also eating large amounts of sugary food when I visited with her in her room. Per daughter, this is not her normal intake and normally she partakes in sugar free foods at home. We will increase basal glargine to 4 units and continue with her individualized correction scale. We discussed at length possible homegoing diabetes management. We do not favor discharging on basal Lantus given that she is eating far more sugar here than she does at home and she has had severe episodes of hypoglycemia in the past. We would favor reinitiating the metformin when she transitions to outpatient as well as an individualized correction scale. Specifically, we would favor continuing withthe individualized correction scale that she is using here in the hospital. In terms of the metformin, her diarrhea has resolved in the hospital after discontinuation of the antibiotics and metformin. While metformin induced gastrointestinal upset is a possibility, it is more likely to be result of the antibiotics. We will plan to reinitiate metformin slowly starting with 500mg daily in the morning with breakfast and then progressing to 500 BID with breakfast and dinner. Given that her kidney function has completely recovered, we could even go up to 1000 BID if it is tolerated by the patient. We will have our diabetes educators to the patient this afternoon in order to address questions related to diabetic management. PLAN - Blood glucose monitoring: four times daily - Glucose goal: 140-200 mg/dL - Basal: Lantus 4 units daily. - Mealtime: No mealtime insulin. - Correction scale: NovoLog individualized correction scale 200-240 give 1 unit, 241-280 give 2 units, 281-320 give 3 units, 321-360 give 4 units, 361-400 give 5 units. - DCS will evaluate and adjust insulin doses as indicated to achieve glycemic goal. ANTICIPATED DISMISSAL PLAN: Preadmission regimen with dose adjustment. Blood glucose frequency: four times daily Goal: 120-180 mg/dL Please page DCS within 24 hours prior to hospital dismissal for final dismissal recommendations. Discussed above plan with patient who is alert and oriented and in agreement. DCS [id number] will continue to follow. Call primary service for diabetes concerns between [phone]. Primary service to contact DCS via hospital tugger operator for questions. Mario Porter, R.N. - 06/06/2022 12:19 PM CDT SUBJECTIVE Referral Data I asked the patient's daughter Mikala about whether or not they would like home healthcare (PT, OT). Mikala says Yes. I sent [facility] referrals. One of the [facility] agencies messaged and state that the patientdona has home healthcare set up at home. [email or web address] and [facility] report that the patient has patient is a patient of theirs with the following services, (Nursing, PT, OT, Home health aid, speech therapy and social work). patient declined additional resources. Anticipated Needs Bathing, Dressing, Grooming/hygeine, Toileting, Transfer to/from bed, chair, etc., Mobility, Meal preparation, Medication set-up/administration, Housekeeping, Shopping, Managing finances, Transportation use (drive car, use taxi/bus) None None Support from family Home or Self Care OBJECTIVE The patient's daughter is the caregiver. ASSESSMENT / PLAN Assessment The Person(s) Present During Interview: familyDaughter appear to have insight into the patient's needs at this time and are planning appropriately for discharge needs. They report agreement with the below plan with no further questions at this time. Plan Patient to discharge with home health care. Home Medical Care - Admitted Since 06/03/2022 Service Provider Selected Services Address Phone Fax Patient Preferred [facility] [address] , [facility] [address] [phone] -- Contact: Intake NURSING: - Complete documentation in the Discharge Navigator including Nursing Report Info and Facility/NextLevel of Care Info - Call report and arrange for the patient???s first visit. - Send required packet of dismissal information with patient, including After Visit Summary and advance directive. PRIMARY SERVICE: - Please provide a non-[facility] home health order for resumption of previous services by home health care on the After Visit Summary. If additional services are needed, please provide order. - Communicate with the patient???s local primary care provider by telephone for writing of home care orders. This needs to be done to help prevent discharge delays. A copy of the After Visit Summary needs to be sent there as well. CASE MANAGEMENT: -Reviewed patient's insurance coverage for the services noted above. The daughter Mikala appear(s)to have an understanding of this. -Will continue to follow and assist if needs arise. Mario Porter R.N. 06/06/2022 Mario Porter R.N. - 06/06/2022 11:43 AM CDT SUBJECTIVE Referral Data The patient's daughter would like home healthcare. patient declined additional resources. Anticipated Needs Bathing, Dressing, Grooming/hygeine, Toileting, Transfer to/from bed, chair, etc., Mobility, Meal preparation, Medication set-up/administration, Housekeeping, Shopping, Managing finances, Transportation use (drive car, use taxi/bus) None None Support from family Home or Self Care OBJECTIVE The patient's daughter is the caregiver. ASSESSMENT / PLAN Assessment The Person(s) Present During Interview: familyDaughter appear to have insight into the patient's needs at this time and are planning appropriately for discharge needs. They report agreement with the below plan with no further questions at this time. Plan Home Medical Care - Admitted Since 06/03/2022 Service Provider Request Status Selected Services Address Phone Fax Patient Preferred [facility] Pending - Request Sent N/A [address] [facility] [address] -- [facility] Pending - Request Sent N/A [address] [facility] [address] -- [facility] Pending - Request Sent N/A [address] [facility] [address] -- [facility] Pending - Request Sent N/A [address] [address] [phone] -- [facility] Pending - Request Sent N/A [address] [address] -- [facility] Pending - Request Sent N/A [address] [facility] [address] -- [facility] Pending - Request Sent N/A [address] [facility] [address] [phone] -- [facility] [place] Pending - Request Sent N/A [address] [facility] [address] -- [facility] Pending - Request Sent N/A [address] [facility] [phone] -- [facility] Pending - Request Sent N/A [address], [facility] [phone] -- [facility] Pending - Request Sent N/A [address], [facility] -- [facility] Pending - Request Sent N/A [address], [facility] [phone] -- [facility] Pending - Request Sent N/A [address] [facility] [address] -- -- [facility] Pending - Request Sent N/A [address] [address] [phone] -- [facility] Pending - Request Sent N/A [address], [facility] [address] [phone] -- [facility] Pending - Request Sent N/A [address], [facility] [address] -- [facility] Pending - Request Sent N/A [address], [facility] [phone] -- [facility] [place] Pending - Request Sent N/A [address], [facility] [address] [phone] -- [facility] [place] Pending - Request Sent N/A [address] [facility] [address] [phone] -- [facility] [place] Pending - Request Sent N/A [address], [facility] [address] -- [facility] [place] Pending - Request Sent N/A [address], [place] [address] [phone] -- [facility] Pending - Request Sent N/A [address] [facility] [address], [facility] -- [facility] Pending - Request Sent N/A [address] [facility] [address] [phone] -- [facility] Pending - Request Sent N/A [address] [facility] [address] [address] -- [facility] Pending - Request Sent N/A [address] [address] [phone] -- [facility] Pending - Request Sent N/A [address] [facility] [address] [phone] -- [facility] Pending - Request Sent N/A [address] [facility] [address] -- Mario Porter R.N. 06/06/2022 Jerod Orr, R.Ph. 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 Prophylaxis: Heparin SQ - 5,000 Units TID ASSESSMENT / PLAN Query C.diff: Blood cultures and C.diff PCR negative Renal: MICKEY, Scr improved, at baseline from early May. Diabetes: DCS consult, currently on correction scale. Appears patient was converted to Humalog JR 2/2 insulin sensitivity Changes to medications anticipated at discharge: TBD Jerod Orr R.Ph. Kylah Koo P.T., D.P.T. - 06/05/2022 1:26 PM CDT 06/05/22 1326 General Reason Therapy Missed Other (comment) Attempted x2 this morning and x1 in PM. In the AM, patient was not arousable. Per nursing, patient was refusing to take medications and refused to get labs drawn. Upon arrival in PM, patient with service. Patient continues to have intermittent cooperation with staff. PT will follow up at future date as able. Amelia Araya APRN, C.N.P., D.N.P. - 06/05/2022 1:20 PM CDT T Medicine 11 ([facility]) Progress Notes SUBJECTIVE Mrs. Guerrero was seen in the context of morning rounds. No acute events overnight; however, patient continues to refuse labs and medications per nursing staff. She also refused to eat this morning, andwanted to be left alone. She appears quite drowsy, but is arousable and oriented to self, place, and month. There is also question of whether not she has insight into recurrent hospitalization, whichmay be in the setting of hypoactive delirium vs. cognitive affects from previous stroke vs. behavioral. She otherwise denies fever, chills, shortness of breath, chest pain, or changes in GI/ function. Interestingly, she repetitively asks for wash cloth, so she can wash herself up, during our interaction as well. She also asked us to leave her alone. Addendum at 12:00 p.m: Mrs. Guerrero finally agreed to getting blood work and said she would take hermorning pills after eating lunch. The daughter was also updated on the current situation, and told us that her mom's drowsiness is likely at baseline, and she's set up for an outpatient sleep study in the near future (but has not been able to go to yet). I have reviewed the current medication list. OBJECTIVE VITAL SIGNS Temperature: [36.2 ??C-36.9 ??C] 36.2 ??C Resp Rate: [14-18] 15 Blood Pressure: (119-131)/(56-64) 119/64 SpO2: [94 %-98 %] 98 % Pulse Rate: [66-77] 66 Intake/Output Last 24 Hours: Intake/Output Summary (Last 24 hours) at 06/05/2022 1320 Last data filed at 06/04/2022 2300 Gross per 24 hour Intake 950 ml Output 50 ml Net 900 ml PHYSICAL EXAM General: Frail, 61 year old female, mildly disoriented, but resting comfortably in bed Mental: Drowsy and oriented x 1-2. Minimal interaction due to hearing deficit and wanting to sleep. HEENT: trachea midline, pupils PERRL, EOM intact, oral mucosa pink and moist without lesions CV: Regular rate and rhythm; no murmurs, rubs, or gallops PULM: clear to auscultation bilaterally; no rales, rhonchi, or wheezes. Respirations even and non-labored on room air. Abd: Soft,, tender to palpation thought to be related to nausea; non-distended. Active bowel sounds Extremities: No appreciable lower extremity edema bilaterally Skin: No new lesions or rashes. Warm, well-perfused. Neuro: Cranial nerves II-XII grossly intact. Motor and sensation symmetric bilaterally in all extremities. DIAGNOSTICS I have personally reviewed labs, diagnostics, electronic health record. ASSESSMENT / PLAN Ms. Guerrero is hospitalized on [facility] Medicine 11 ([facility]) for evaluation and management of: Diarrhea Mrs. 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), history of cerebrovascular infarcts in 2020 (May and August) (lesion in the left basal ganglia with T1 hyperintensity and heterogeneous T2 signal without restricted diffusion which is favored to represent a late subacute/chronic infarct with evolving blood), cognitive impairment, type 2 diabetes (A1c 8.8), CKD stage 3, recurrent urinary tract infections, chronic endometrial infection (initially diagnosed in 2019) complicated by recent hospitalization (05/13-05/15) status post vancomycin, levofloxacin, cefepime and subsequently dismissed with the levofloxacin 750 mg daily (completed 10 course, followed by bactrim due to nausea), hypertension, hyperlipidemia, and hx of multiple cartilage and osteochondral lesions who presents to [facility] as a direct admission from outpatient infectious disease clinic for concerns of dehydration, diarrhea, failure to thrive, and query C difficile. She was recently seen by outpatient infectious disease clinic on 06/03/2022 (with Dr. Martinez) where itwas identified that the patient was not tolerating oral intake due to ongoing emesis in the setting of antibiotics (which were transitioned from Levaquin to Bactrim) as well as 4 days of watery diarrhea. Due to concerns of failure to thrive, and possible C difficile infection, she was ultimately recommended to present to the emergency room for ongoing evaluation. Upon arrival [facility], she remained hemodynamically stable and afebrile. Labs were initially delayed due to patient preference; however, repeat laboratory data demonstrated hemoglobin 11.3 (down from 13.1),platelets 129 (down from 263), sodium 134, BUN 22, creatinine 1.22 (previously 1.8 on 05/23), glucose 178, magnesium 1.3, phosphorus 2.8, and hemoglobin A1c 8.9. Blood cultures negative to date. Urinalysis significant for ketones (5). C difficile negative. She received a 1 L crystalloid due to poor oral intake, with plans of ongoing gentle repletion in the setting of poor oral intake. DCS has been consulted and following closely as well as nutrition. Will consult PT/OT also evaluate for possible outgoing therapy needs. # Diarrhea- improved # C difficile negative # Dehydration # Nausea with Vomiting # Failure To Thrive Adult # Altered Mental Status # Query hypoactive delirium # Chronic Endometritis with recent treatment with Levaquin and Bactrim (status post 14 day course) Assessment: Currently awaiting morning labs, as this has been deferred again due to patient refusal.Labs on admission were remarkable for overall improvement in her previous MICKEY with creatinine of 1.22 down from 1.8. Her sodium was mildly depleted at 134 as well as magnesium of 1.3, which was repleted with 4 g magnesium sulfate. She received an additional 500 cc fluid bolus yesterday in the setting of decreased oral intake. Fortunately, no further episodes of diarrhea since 06/04/22. C diff negative. Blood cultures remain negative today. UA negative for infection. Overall etiology of her current presentation is likely multifactorial in setting of dehydration 2/2 diarrhea and emesis, recent antibiotics, and plus or minus reinitiating her home Synthroid, prednisone, and desmopressin (which had been stopped for total of 3 weeks in the beginning of May). Her altered mental status also appears to be multifactorial with her personal history of 2 x strokesin 2020, recent infection, query hypoactive delirium, and query sleep apnea. According to her daughter, she has had daytime drowsiness for some time now, and is set up for an outpatient sleep study. She has no focal deficits which is reassuring. We will check a VBG to ensure she is not retaining CO2 along with ammonia level. We are hopeful with adequate fluid repletion, nutrition consult, sleep enhancement, and PT/OT eval that we will be able to discharge her back home with her daughter in the next 24-48 hours. In regard to her endometriosis, she has completed therapy with no further role of antibiotics at this time. Will also pursue PT/OT evaluation due to her debility and failure to thrive. Plan: -- follow-up CBC, BMP, VBG, ammonia, and lactate -- continue ondansetron as needed for nausea/vomiting -- encourage oral fluids and nutritional intake -- PT/OT evaluation -- encourage activity as tolerated -- delirium management prevention. Fall precautions -- nocturnal oximetry study for KARLY rule out -- continue with outpatient sleep study # Diabetes Mellitus Type 2 (HCC) # Malnutrition # Risk for Refeeding Assessment: Glucose is elevated overnight to 350; therefore, she received 5 units of aspart overnight with plans of starting 5 units of glargine this morning. Patient was previously on metformin, whichis currently being held. There was also question whether or not the metformin was in exacerbator in her diarrhea or if diarrhea with secondary to antibiotics. Patient has had reported weight loss in the last couple of months due to her recent endometrial infection as well as UTIs and altered mental status. Patient lives with her daughter, so her daughter hastried increase her oral intake has closely monitor her weight. DCS following. Plan: -- appreciate DCS recommendations -- continue to hold home metformin while hospitalized -- sliding scale insulin deferred for now per DCS -- continue glargine 5 units daily -- q.i.d. glucose checks -- regular diet for now with glucose range 140-180 -- dietitian following -- will order boost supplements t.i.d. -- daily weights -- strict I&Os -- closely monitor for refeeding syndrome with daily BMP, magnesium, and phosphorus while hospitalized # Normocytic anemia # Thrombocytopenia Assessment: Currently awaiting morning labs. Platelets down on admission to 129 (from 268) which mayfrom fluids as well as recent antibiotics. Hemoglobin also down to 11.3 from 13.1. She is not appearto be bleeding nor did she have signs of hemolysis. Will add on a peripheral smear and follow-up iron studies, folate, and B12. Will need to monitor closely for HIT as well with recent exposure to heparin in early May. 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 Of note, patient had nottaken her desmopressin for approximately 3 [facility]; therefore, her desmopressin was recently restarted on 05/24/22. No signs of adrenal insufficiency or hypernatremia. Plan: -- follow-up repeat labs (mentioned above) -- continue home meds: atorvastatin, calcium, carvedilol, cholecalciferol, clopidogrel, desmopressin, ferrous sulfate, levothyroxine (takes at night), mirtazapine, multivitamin with minerals, prednisone, risperidone, and thiamine Non-severe (moderate) Malnutrition The patient meets the ASPEN Criteria of malnutrition based on: Average estimated Intake: Less than or equal to 50% for 5 or more days Weight Loss: (6% weight loss over the past 2-3 months.) Body Fat: Mild Loss (Visual only) Muscle Mass: Mild Loss (Visual only) This is in the context of Acute Illness or Injury (on chronic illness). Agree with Registered Dietitian's assessment and treatment plan: Interventions: Medical food supplement, Vitamin and mineral supplements, Provide counseling strategies to apply nutrition knowledge Medication reconciliation Home medications continued: Atorvastatin, refresh drops, calcium carbonate/vitamin D, carvedilol, vitamin D, Plavix, desmopressin, ferrous sulfate, Synthroid, mirtazapine, Ocuvite vitamin, nystatin cream, prednisone, risperidone, thiamine, Home medications held: Insulin aspart, MiraLax, magnesium, and metformin New Medications: Subcutaneous heparin, and insulin Current activity/mobility: PAMP Level 3 (walks occasionally, majority of day is spent sitting in chair) Diet: general diet Tubes/lines: PIV VTE prophylaxis: heparin Code status: DNR/DNI Disposition: Home with Home Health Stable to discharge criteria (not yet met): Nutrition/hydration, Urinary/fecal output, Labs, and Functional status The following case was discussed with Dr. Ivory, who agrees with current plan. Counseling was provided [id number] at bedside regarding the plan of care as stated above. I personally spent over half of a total 35 minutes in counseling and coordination of care as documented above. Taylor Ivory M.D. - 06/05/2022 12:49 PM CDT I saw and evaluated Mrs. Oneyda Guerrero on rounds today with our medicine team. I participated and provided the substantive portion of this shared/split visit with Amelia Araya APRN. I agree with the Advanced-Practice Provider's findings and plan of care, as documented. My assessment and plan are as follows: #1 Stroke Cerebrovascular Accident Personal History #2 Hypertension Essential Primary #3 Other Hyperlipidemia #4 Diabetes Mellitus Type 2 (HCC) #5 Diarrhea #6 Dehydration #7 Failure To Thrive Adult Mrs. Guerrero is a 61 y.o. female with medical comorbidities including personal history of CVA, hyperlipidemia, diabetes mellitus type 2, endometritis status post 2 week course of levofloxacin (completed on 05/28). She was evaluated in the infectious disease clinic where concern was raised about the possibility of C difficile infection given elevated creatinine to 1.84 on 05/23 and reports of worsening diarrhea and failure to thrive that corresponded with administration of antibiotics. C diff is negative. Creatinine has returned to baseline. Patient continuing to demonstrate intermittent cooperation with staff including with taking medications and with lab draws. She was initially difficult to arouse during rounds, but was able to wake up.She repeatedly requested a hot washcloth, but would not answer targeted questions about symptoms. Physical exam demonstrated small adult female with esotropia. RRR, no murmurs, no lower extremity edema. Lungs clear to auscultation anteriorly. Bowel sounds present. Abdomen is soft, non tender, non distended. Plan is to assess mental status with VBG, ammonia. Trending renal function and electrolytes. Restarting home magnesium. Work up of anemia, thrombocytopenia pending. Involving PT and OT. Hopeful for discharge tomorrow. Please refer to Amelia Araya APRN's note dated today for additional details about our team's plan of care. Lili Iglesias RDN, LD - 06/04/2022 3:20 PM CDT Clinical Nutrition: Initial Assessment Clinical Nutrition was requested to evaluate patient for positive nursing baseline nutrition screen with a MST score of 2 or greater and assessment of nutritional status SUBJECTIVE Ms. Guerrero is a 61 y.o. female admitted for management of dehydration, diarrhea, and failure to thrive in the context of hospitalizations for endometritis and recurrent UTIs in setting of recent antibiotic treatment. Nutrition related medical/surgical history: stroke x2 (05/2021, 08/2021), chondroid chordoma status-post subtotal resection, radiation, and long-term steroid treatment, steroid-induced diabetes, HTN, HLD, chronic cognitive impairment and recurrent UTIs Completed visit with family today as part of face to face care. Current Nutrition (since admission): Patient was nibbling at her noon meal of stir sutton which her daughter purchased for her due to patient not interested in food received from [employer]. Daughter reported nausea medication has been helping. Nutrition history: Daughter reported patient has had decreased oral intake over past 3 months with minimal intake over the past 2 weeks due to issues with nausea, emesis and now diarrhea. Daughter has been offering foods for patient to choose from. She usually will choose crackers and Jello. She has been drinking Pedialyte and Gatorade and occasional Glucerna. OBJECTIVE Current nutrition orders: Current Diet Adult Diet Regular starting at 06/03 1855 Pertinent Labs: Lab Units 06/04/22 1340 SODIUM P mmol/L 134* POTASSIUM P mmol/L 3.9 CHLORIDE P mmol/L 101 BICARBONATE PLASMA mmol/L 24 CREATININE mg/dL CANCELED 1.22* BUN P mg/dL 22* ANION GAP P 9 GLUCOSE P mg/dL 178* CALCIUM P mg/dL 8.1* Medications: calcium carbonate-vitamin D3 1,250 mg (500 mg calcium)-5 mcg (200 Unit) per tablet 1 tablet, 125 mcg Vitamin D3, 65 mg iron, insulin, Remeron, therapeutic multivitamin with minerals, 100 mg Thiamine, Zofran prn. Anthropometrics: Height: 149.9 cm Admission Weight: 42.8 kg (06/03/2022) BMI (Calculated): 20 kg/m?? Weight Change History: Per review of EMR- 39.9 lkg on 10/26/21. Daughter reported weight gain to 47 kg in February. Wt Readings from Last 2 Encounters: 06/03/22 45 kg 05/13/22 44.5 kg Estimated Needs: Total Calorie Needs: 9706-7293 calories/day Method to Estimate Energy Needs: Fabian-[place] (Basal to Basal + 20%) Weight Used for Equation Calculations: 45 kg Total Protein Needs: 45 - 54 grams/day (Method to Estimate Protein Needs (g/kg): 1 - 1.2 gm/kg) Weight Used to Calculate Protein Needs (Kg): 45 kg Nutrition Diagnosis: Inadequate oral intake related to nausea, emesis and diarrhea as evidenced by patient's daugther's report, weight loss and evidence of visual muscle and fat loss. Malnutrition Criteria: Average estimated Intake: Less than or equal to 50% for 5 or more days Weight Loss: (6% weight loss over the past 2-3 months.) Body Fat: Mild Loss (Visual only) Muscle Mass: Mild Loss (Visual only) Nutritional Status: Non-severe (moderate) Malnutrition Malnutrition in the Context of: Acute Illness or Injury (on chronic illness) ASSESSMENT / PLAN Patient meets ASPEN/AND criteria for Non-severe (moderate) Malnutrition (06/04/2022 3:16 PM) See Nutrition Focused Physical Findings section for details. Nutrition Intervention: Interventions: Medical food supplement with meals, Vitamin and mineral supplements, Provide counseling strategies to apply nutrition knowledge- frequent meals and use of oral nutrition supplements. Recommendations: Closely monitor serum potassium, phosphorus and magnesium due to refeeding risk and replace accordingly. Monitoring/Evaluation: Nutrition parameter to monitor: Meals/Supplement Intake, Weight Status, Pertinent Labs, Nausea/Vomiting/Diarrhea Desired Outcome: Adequate oral intake to meet nutrition needs Patient Goal(s): 1. Patient to eat 50% or more of 3 meals plus nutrition supplement with each meal. For questions about patient's nutritional care please contact pager [phone] on weekdays or [phone] on weekends/holidays. Amelia Araya APRN, C.N.P., D.N.P. - 06/04/2022 3:01 PM CDT [facility] Medicine 11 ([facility]) Progress Notes SUBJECTIVE Mrs. Guerrero was seen in the context of morning rounds. Her daughter is also present. Currently, sheis resting comfortably in bed, in no acute distress. Her daughter, Mikala, requests we let her mother rest/sleep due to multiple interruptions overnight. She also asked us if we can wait on obtaining blood work until 1300-14 her this afternoon due to minimal sleep. We did adjust the importance of getting baseline blood work with her direct admission, and ultimately decided that we would robinson back and get blood work around noon. Briefly, the patient was admitted as a direct transfer from the outpatient ID clinic for concerns of failure to thrive, diarrhea, and dehydration in the setting of recentantibiotics and query C difficile infection. According to collateral information provided by her daughter, Mrs. Guerrero has been dealing with a lot of step back in regard to her stroke rehab and overall health status since February in the setting of her chronic endometrial infection complicated by altered mental status and UTIs. The patient currently lives with her daughter, since having 2 separate strokes, 1 in May of 2021 and the other in August 2021. From a stroke perspective, her daughter has indicated progression in her physicals status up until the beginning of May and recent hospitalization. She is concerned with the possibility of major setback with her stroke rehab status with now being back in the hospital along with her decreased oral intake, diarrhea, and general malaise. We assured her that we were going to try to figure out what is causing her diarrhea and vomiting, and think that there is the strong possibility of having C difficile from her recent antibiotics. The patient does endorse having [id number] nausea/upset stomach after taking her morning pills, but denies any acute pain at this time. Is it difficult to fully ascertain whether or not she is having any other discomforts as her eyes are closed and does not really want to be disturbed. She remains vitally stable. She is agreeable to getting blood work (which we have yet to receive). I have reviewed the current medication list. OBJECTIVE VITAL SIGNS Temperature: [36.4 ??C-37.2 ??C] 36.5 ??C Heart Rate: [83] 83 Resp Rate: [14-17] 17 Blood Pressure: (108-150)/(50-75) 145/70 SpO2: [97 %-99 %] 99 % Pulse Rate: [68-83] 74 Intake/Output Last 24 Hours: Intake/Output Summary (Last 24 hours) at 06/04/2022 1501 Last data filed at 06/03/2022 2222 Gross per 24 hour Intake 13 ml Output -- Net 13 ml PHYSICAL EXAM General: Frail, 61 year old female/ ill but not toxic-appearing female, resting comfortably in bed Mental: Drowsy and oriented x 1-2. Minimal interaction due to hearing deficit and wanting to sleep. HEENT: trachea midline, pupils PERRL, EOM intact, oral mucosa pink and moist without lesions CV: Regular rate and rhythm; no murmurs, rubs, or gallops PULM: clear to auscultation bilaterally; no rales, rhonchi, or wheezes. Respirations even and non-labored on room air. Abd: Soft,, tender to palpation thought to be related to nausea; non-distended. Active bowel sounds Extremities: No appreciable lower extremity edema bilaterally Skin: No new lesions or rashes. Warm, well-perfused. Neuro: Cranial nerves II-XII grossly intact. Motor and sensation symmetric bilaterally in all extremities. DIAGNOSTICS I have personally reviewed labs, diagnostics, electronic health record. ASSESSMENT / PLAN Ms. Guerrero is hospitalized on [facility] Medicine 11 ([facility]) for evaluation and management of: Diarrhea Mrs. 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), history of cerebrovascular infarcts in 2020 (May and August) (lesion in the left basal ganglia with T1 hyperintensity and heterogeneous T2 signal without restricted diffusion which is favored to represent a late subacute/chronic infarct with evolving blood), co gnitive impairment, type 2 diabetes (A1c 8.8), CKD stage 3, recurrent urinary tract infections, chronic endometrial infection (initially diagnosed in 2019) complicated by recent hospitalization (05/13-05/15) status post vancomycin, levofloxacin, cefepime and subsequently dismissed with the levofloxacin 750 mg daily (completed 10 course, followed by bactrim due to nausea), hypertension, hyperlipidemia, and hx of multiple cartilage and osteochondral lesions who presents to [facility] as a direct admission from outpatient infectious disease clinic for concerns of dehydration, diarrhea, failureto thrive, and query C difficile. She was recently seen by outpatient infectious disease clinic on 06/03/2022 (with Dr. Martinez) were wasidentified that the patient was not tolerating oral intake ongoing emesis in the setting of antibiotics (which were transitioned from Levaquin to Bactrim) as well as 4 days of watery diarrhea. Due to concerns of failure to thrive possible C difficile infection, she was recommended to present to the emergency room for ongoing evaluation. In regard to her endometriosis, she has completed appropriate course Levaquin and Bactrim with repeat imaging demonstrating resolution previous infection. Therefore, antibiotics were discontinued. Upon arrival [facility], she remained hemodynamically stable and afebrile. Labs were initially delayed due to patient preference; however, repeat laboratory data demonstrated hemoglobin 11.3 (down from 13.1),platelets 129 (down from 263), sodium 134, BUN 22, creatinine 1.22 (previously 1.8 on 05/23), glucose 178, magnesium 1.3, phosphorus 2.8, and hemoglobin A1c 8.9. Blood cultures were drawn and are pending. Urinalysis pending. C difficile pending. She received a 1 L crystalloid due to poor oral intake, with plans of ongoing gentle repletion in the setting of poor oral intake. DCS has been consulted andfollowing closely as well as nutrition. Will consult PT/OT also evaluate for possible outgoing therap y needs. # Diarrhea, Query C. Difficile infection # Dehydration # Nausea with Vomiting # Failure To Thrive Adult # Chronic Endometritis s/p recent treatment with Levaquin and Bactrim (14 day course) Assessment: Currently awaiting morning labs, as this has been deferred due to patient refusal. She has received 1 L of crystalloid, and has been eating bites of food and drink approximately 200 cc of fluid thus far. She continues to remain incontinent, which is not new according to her daughter. C difficile specimen sent and pending. ECG ordered. Pending her lab, will likely replete with additional fluids for MICKEY concerns as well as follow-up blood cultures, UA, TSH, and A1c. Overall, etiology is likely suspicious for C diff in the setting of recent antibiotics and likely dehydration/poor oral intake which likely exacerbated her recent bump in creatinine. In regard to her endometriosis, she has completed therapy with no further role of antibiotics at this time, unless she has C difficile or bacteremia. Will also pursue PT/OT evaluation due to her debility and failure to thrive. Plan: -- follow-up CBC, BMP, hepatic panel, magnesium, phosphorus, TSH, A1c, blood cultures, and UA -- follow-up C difficile PCR -- continue gentle repletion until oral intake is 500 cc or greater -- continue ondansetron as needed for nausea/vomiting -- encourage oral fluids and nutritional intake -- PT/OT evaluation -- encourage activity as tolerated -- delirium management prevention. Fall precautions # Diabetes Mellitus Type 2 (HCC) # Malnutrition # Risk for Refeeding Assessment: Patient has had reported weight loss in the last couple of months due to her recent endometrial infection as well as UTIs and altered mental status. Patient lives with her daughter, so her daughter has tried increase her oral intake has closely monitor her weight. DCS following. Plan: -- appreciate DCS recommendations -- continue to hold home metformin while hospitalized -- sliding scale insulin deferred for now per DCS -- q.i.d. glucose checks -- regular diet for now with glucose range 140-180 -- dietitian consult -- daily weights -- strict I&Os -- closely monitor for refeeding syndrome with daily BMP, magnesium, and phosphorus while hospitalized # Normocytic anemia # Thrombocytopenia Assessment: Platelets low on admission to 129 (down from 268) she may be in the setting of fluids aswell as recent antibiotics. Hemoglobin also down to 11.3 from 13.1. She is not appear to be bleedingnor did she have signs of hemolysis. Will add on a peripheral smear and follow-up iron studies, folate, and B12. Will need to monitor closely for HIT as well with recent exposure to heparin in early May. Plan: -- follow-up peripheral smear -- add on iron studies, folate, and B12 # Hypertension Essential Primary # Hyperlipidemia # Stroke Cerebrovascular Accident Personal History (2020) # CKD Stage 3 # Panhypopituitarism following cranial surgery for chondroid chordoma status post radiation and long-term steroid treatment Assessment: Previously had a bump in creatinine to 1.8 (from 1.14) on 05/23 which is likely prerenalin the setting of vomiting and decreased oral intake. Of note, patient had not taken her desmopressin for approximately 3 weeks [facility]; therefore, her desmopressin was recently restarted on 05/24/22. No signs of adrenal insufficiency or hypernatremia. --> Will follow-up labs and consider ongoing fluid repletion for MICKEY if indicated. Plan: -- follow-up repeat labs (mentioned above) -- continue home meds: atorvastatin, calcium, carvedilol, cholecalciferol, clopidogrel, desmopressin, ferrous sulfate, levothyroxine, mirtazapine, multivitamin with minerals, prednisone, risperidone, and thiamine -- ECG ordered (baseline monitoring) Medication reconciliation Home medications continued: Atorvastatin, refresh drops, calcium carbonate/vitamin D, carvedilol, vitamin D, Plavix, desmopressin, ferrous sulfate, Synthroid, mirtazapine, Ocuvite vitamin, nystatin cream, prednisone, risperidone, thiamine, Home medications held: Insulin aspart, MiraLax, magnesium, and metformin New Medications: Subcutaneous heparin Current activity/mobility: PAMP Level 3 (walks occasionally, majority of day is spent sitting in chair) Diet: general diet Tubes/lines: PIV VTE prophylaxis: heparin Code status: DNR/DNI Disposition: Home with Home Health Stable to discharge criteria (not yet met): Nutrition/hydration, Urinary/fecal output, Labs, and Functional status The following case was discussed with Dr. Ivory, who agrees with current plan. Counseling was provided [id number] at bedside regarding the plan of care as stated above. I personally spent over half of a total 35 minutes in counseling and coordination of care as documented above. Raj Meza, Pharm.D., R.Ph. - 06/04/2022 12:00 PM CDT Pharmacist Progress Note Reason for admission: Failure to thrive w/ dehydration 2/2 diarrhea PMH: HTN/HLD, Hx CVA (2020), CKD3, panhypopituitarism 2/2 cranial surgery for chondroid chordoma s/pradiation and long-term steroids Recent hospitalization 05/13/22 for endometritis s/p vanco + levofloxacin transitioned to levofloxacinPO (finished 05/28/22) OBJECTIVE Home medications: Per Provider Held: Supplements, metformin (MICKEY), bowel meds (diarrhea) Changed: None CrCl cannot be calculated (Patient's most recent lab result is older than the maximum 7 days allowed.). Prophylaxis: Heparin SQ - 5,000 Units TID ASSESSMENT / PLAN Query C.diff: Blood cultures and C.diff PCR in process. No antibiotics at the moment d/t no systemicsigns of infection. Renal: MICEKY, calculated eCrCl from last Scr (05/23/22) is 23 mL/min. Will recheck Scr tomorrow, meds should be appropriate. Meds Renally Adjusted: None at the moment Diabetes: DCS consult, currently on correction scale. Clarify if patient should be on lispro or aspart at home (both on med list). Changes to medications anticipated at discharge: ANA Meza, DonnieD, SREE, BCPS [phone] documented in this encounter H&P Notes Taylor Ivory M.D. - 06/04/2022 3:11 PM CDT I saw and evaluated Mrs. Oneyda Guerrero on rounds today with our medicine team. I participated and provided the substantive portion of this shared/split visit with Isaura Aguilar APRN and Amelia Araya APRN. I agree with the Advanced-Practice Provider's findings and plan of care, as documented. My assessment and plan are as follows: #1 Stroke Cerebrovascular Accident Personal History #2 Hypertension Essential Primary #3 Other Hyperlipidemia #4 Diabetes Mellitus Type 2 (HCC) #5 Diarrhea #6 Dehydration #7 Failure To Thrive Adult Mrs. Guerrero is a 61 y.o. female with medical comorbidities including personal history of CVA, hyperlipidemia, diabetes mellitus type 2, endometritis status post 2 week course of levofloxacin (completed on 05/28). She was evaluated in the infectious disease clinic where concern was raised about the possibility of C difficile infection given elevated creatinine to 1.84 on 05/23 and reports of worsening diarrhea and failure to thrive that corresponded with administration of antibiotics. She was directlyadmitted to medicine 11 service. On morning rounds, patient was sleeping soundly. Daughter requested that we did not wake to evaluateher given agitation. We discussed importance of lab monitoring, as the patient had been directly admitted and no labs had been obtained prior to our evaluation due to patient being a difficult lab drawand repeated refusal from patient. After rounds, labs were obtained, which demonstrated improvement of creatinine to 1.22 (baseline 1.14), normocytic anemia with hemoglobin 11.3, thrombocytopenia with platelets of 129, and hypomagnesemia to 1.3. Investigating etiology of anemia, thrombocytopenia. No platelet clumping or schistocytes on smear. Repleting magnesium, likely decreased in setting of diarrhea. C diff testing is pending. If negative, will initiate imodium with plan for outpatient investigations of diarrhea. Please refer to Amelia Araya's note dated today for additional details about our team's planof care. Isaura Aguilar APRN, C.N.P., D.N.P. - 06/03/2022 6:15 PM CDT [facility] Medicine 11 ([facility]) Admission Note SUBJECTIVE CHIEF COMPLAINT Dehydration, diarrhea, failure to thrive HISTORY OF PRESENT ILLNESS Mrs. Oneyda Guerrero is a 61 y.o. female who was referred by Dr. Martinez for direct admission to [facility] from [facility] for evaluation of failure to thrive, diarrheaand dehydration. Mrs. Guerrero had recently been hospitalized on 05/13/2022 for endometritis. She initially received IV vancomycin and cefepime, and then transitioned to levofloxacin 750 mg PO daily (last dose on 05/28/2022) for endometritis management. Approximately a week after hospital discharge, she had multiple episodes of emesis per day. Her nausea with vomiting has persisted. Approximately fourdays ago, she developed loose, watery diarrhea. She had noticed urinary and bowel incontinence as well. Mrs. Guerrero denied fever. No reported dysuria or urinary frequency. Dr. Martinez is concerned that the patient has developed c. Dificile and MICKEY based on her symptoms, recent antibiotic therapy and elevated creatinine. Other than diarrhea, no signs/symptoms of an active infection. She had MRI gynecologic pelvis with and without contrast on 05/23/2022 which showed resolution of previously noted dilatation of endometrial cavity, no concern for infection at that time. Note that her creatinine was 1.84 on 05/23/2022 (obtained in preparation for MRI) and prior creatinine on 05/13/2022 was 1.14 (baseline creatinine 0.66-0.85). 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 Mrs. Guerrero is seen and examined upon admission to Medicine 11 Service. Patient's daughter is present at the bedside and provides history of events. The patient has had reduced oral intake, fatigue and diarrhea. No reported fever. Patient has been feeling chilled. Denies dysuria, suprapubic or abdominal pain. Denies shortness of breath or chest pain. Mrs. Guerrero lives at home with her daughter. Lalit is her caregiver. Reviewed patient's home medication list. I have reviewed and updated the following: Past Medical History, Family History, Social History, andAllergies. Current Outpatient Medications on File Prior to Encounter: acetaminophen (TYLENOL) 325 mg tablet, Take 325 mg by mouth every 4 (four) hours as needed for pain., Past Week atorvastatin (LIPITOR) 20 mg tablet, Take 1 tablet by mouth daily., 06/02/2022 calcium carbonate/vitamin D3 (CALCIUM 600 + D,3, ORAL), Take 650 mg by mouth daily., 06/02/2022 carboxymethylcellulose (REFRESH PLUS) 0.5 % ophthalmic solution, Administer 1 drop into both eyes 4(four) times a day., 06/02/2022 carvediloL (COREG) 3.125 mg tablet, Take 3.125 mg by mouth 2 (two) times a day with meals., 06/02/2022 sdmskmngb-ajfrsnm-fz sod,bulk, 88.3-11.7 % powder, Administer 2 drops into both eyes daily., 06/02/2022 cholecalciferol, vitamin D3, 125 mcg (5,000 unit) tablet,disintegrating, Dissolve 125 mcg in the mouth daily., 06/02/2022 cinnamon bark 500 mg capsule, Take 500 mg by mouth daily., 06/02/2022 clopidogreL (PLAVIX) 75 mg tablet, TAKE ONE TABLET BY MOUTH EVERY DAY INDEFINITELY TO PREVENT BLOODCLOTS AND STROKE., 06/02/2022 cranberry 500 mg capsule, Take 1 tablet by mouth daily., 06/02/2022 desmopressin (DDAVP) 10 mcg/spray (0.1 mL) nasal spray, Administer 10 mcg into one nostril 3 (three) times a week. 1 spray in each nostril three times a week (Tuesdays, and Sundays in the evening)., 06/02/2022 ferrous sulfate 325 mg (65 mg iron) tablet, Take 325 mg by mouth daily., 06/02/2022 levothyroxine (SYNTHROID, LEVOTHROID) 75 mcg tablet, 75 mcg 6 (six) times a week. Takes at bedtime on an empty stomach. Every day except on Sundays, 06/02/2022 metFORMIN XR (GLUCOPHAGE-XR) 500 mg 24 hr tablet, Take 1,000 mg by mouth daily., 06/02/2022 mineral oil/petrolatum,white (WHITE PETROLATUM-MINERAL OIL OPHT), Administer 1 drop into affected eye(s) daily. Both eyes, 06/02/2022 mirtazapine (REMERON LAMBERTO-TAB) 30 mg disintegrating tablet, Dissolve 30 mg in the mouth at bedtime.,06/02/2022 pr-ic-jr1-akd-vpn-mmet-lut-inga (Ocuvite Adult 50 Plus) 250 mg (90 mg-160 mg) capsule, Take 1 capsule by mouth daily., 06/02/2022 nut.tx.gluc intol,lf,soy-fiber (Glucerna 1 Kristian) 0.04-1 gram-kcal/mL liquid, Take 4 oz by mouth daily., 06/02/2022 nystatin (MYCOSTATIN) 100,000 unit/gram cream, Apply 1 application topically every other day. Applyto perineal area for skin breakdown, Past Week omega 1-skp-odh-fish oil 1,000 mg (120 mg-180 mg) capsule, Take 1,000 mg by mouth daily., 06/02/2022 predniSONE (DELTASONE) 5 mg tablet, , 06/02/2022 risperiDONE (RisperDAL M-TABS) 0.25 mg disintegrating tablet, Dissolve 0.25 mg in the mouth at bedtime., 06/02/2022 thiamine (VITAMIN B1) 100 mg tablet, Take 1 tablet by mouth daily., 06/02/2022 bisacodyL (DULCOLAX) 5 mg EC tablet, TAKE TWO TABLETS BY MOUTH EVERY DAY NEEDED FOR CONSTIPATION, Unknown dextrose 15 gram/33 gram gel in packet, Take 15 g by mouth as needed (hypoglycemia). glucagon (GlucaGen) 1 mg/mL injection, INJECT 1MG INTRAMUSCULAR NEEDED FOR LOW BLOOD SUGAR; MAY REPEAT IN 15 MINUTES IF NEEDED, Unknown glucagon 1 mg injection, Use as directed for low blood sugar. hydrocortisone (CORTAID) 1 % cream, Apply 1 application topically as needed., Unknown insulin aspart U-100 (NovoLOG FlexPen) 100 unit/mL (3 mL) injection, Inject 1-2 Units under the skin 3 (three) times a day. If glucose greater than 250 insulin lispro (HumaLOG Menodza KwikPen U-100) 100 unit/mL injection, Inject 1 Units under the skin as needed (based on glucose readings). (Patient taking differently: Inject 1 Units under the skin as needed (based on glucose readings). Not currently taking--patient has not picked up prescription yet) magnesium oxide,aspartate,citr 400 mg magnesium capsule, Take 1 capsule by mouth daily. Holding dueto diarrhea, Unknown polyethylene glycol (MIRALAX) 17 gram/dose oral powder, TAKE 17 GRAMS BY MOUTH EVERY DAY NEEDED FOR CONSTIPATION *MIX IN 4 TO 8 OUNCES OF LIQUID DIRECTED*USE COVER TO MEASURE POWDER*, Unknown sennosides (SENOKOT) 8.6 mg tablet, Take 17.2 mg by mouth every other day., Unknown. REVIEW OF SYSTEMS Pertinent items are noted in HPI; all other review of systems was negative. OBJECTIVE VITAL SIGNS Temperature: [37.2 ??C] 37.2 ??C Resp Rate: [14] 14 Blood Pressure: (118)/(59) 118/59 SpO2: [99 %] 99 % Weight: [42.8 kg] 42.8 kg Pulse Rate: [83] 83 PHYSICAL EXAM General: Awake and alert, not in any acute distress Skin: Warm and dry, no rashes or open lesions Eyes: Pupils equal and round ENT: Dry mucous membranes Lungs: Clear bilaterally without any wheezes, unlabored respirations, on room air Heart: Regular rate and rhythm without any appreciated murmurs, without significant lower extremity edema Abdomen: Soft, nontender, nondistended, normoactive bowel sounds Musculoskeletal: Moves extremities purposefully Neuro: Cranial nerves II-XII grossly intact, right-sided weakness noted (reportedly has been presentsince her strokes in 2020) Mental: Flat affect, mood and affect congruent, attention intact, no evidence of disorganized thinking, CAM negative DIAGNOSTICS I have independently reviewed her laboratory and diagnostic testing. ASSESSMENT / PLAN Mrs. Oneyda Guerrero is being admitted for failure to thrive, dehydration, and diarrhea. She recently completed an antibiotic therapy course of levofloxacin for endometritis. She was evaluated by Dr. Martinez in the Infectious Disease Clinic as an outpatient. She has had decreased oral intake along with diarrhea in the setting of recent antibiotic therapy Concerned that she may have c. Difficile infection based on her presentation and symptoms. Fortunately, she is afebrile and hemodynamically stable. # Diarrhea, Query C. Difficile infection # Dehydration # Nausea with Vomiting # Failure To Thrive Adult # Chronic Endometritis -Obtain c. Difficile test in the setting of diarrhea and recent antibiotic therapy. -Obtain CBC with differential, CMP, lactate, blood cultures. -IV LR 1 L for gentle hydration. -Ondansetron as needed for nausea/vomiting. -Encourage oral fluids and nutritional intake. -Encourage activity as tolerates. -Delirium management prevention. Fall precautions. # Diabetes Mellitus Type 2 (HCC) # Malnutrition -Routine glucose monitoring. Regular diet for now. Goal glucose range 140-180. -Diabetes Consult Service to manage diabetes and insulin requirements during her hospitalization. -Holding home metformin. -Glass Vial Filler consult for malnutrition assessment. 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 Addendum: Due to difficult IV and lab draw access, PICC line to be placed. Diet: General Tubes/lines: peripheral IV VTE prophylaxis: heparin subcu Code status: Full Code, not discussed Baseline Mobility: As tolerates Disposition: Home The above plan of care was discussed with Dr. Benitez, HIM actuarial consultant. Counseling was provided [id number] at bedside regarding the plan of care as stated above. I personally spent over half of a total 70 minutes in counseling and coordination of care as documented above. documented in this encounter Consult Notes Daljit Jean-Baptiste M.D. - 06/07/2022 3:41 PM CDT Psychiatry Consult Note Consult Question: Concern for hypoactive delirium versus functional in the setting of previous strokes/S recent infection, and history of paranoid thoughts. Please assist in managing. No overt neurological etiology contributing right now. RECOMMENDATIONS *Please refer to the actuarial consultant's note for final recommendations* Continue delirium precautions. Presentation is consistent with an improving hypokinetic delirium, likely multifactorial but influenced by recent infection requiring hospitalization. May continue homeopathic dose of risperidone if family sees benefit and side effects are tolerable. Mrs. Guerrero did not demonstrate any paranoid thinking while I was in the room. She endorsed feelingsafe and well cared for in the hospital. I do not suspect any primary psychiatric illness to be the cause of any paranoid thoughts that she has expressed during this hospitalization. Impression On my evaluation, Mrs. Guerrero is fairly conversant and seems to be more cognitively clear that she has been throughout this entire hospitalization. It is likely that this is part of the waxing and waning course of Mrs. Guerrero's hypokinetic delirium that has been present since admission. Per primary team collateral, this delirium began in early to mid May when she was hospitalized with endometritis. It is not uncommon for delirium to linger for weeks or in some cases over a month following the precipitating insult. Continuation of delirium precautions and a healthy dose of time will be beneficial in Mrs. Guerrero'scontinued improvement. Her ability to orient herself fairly well and demonstrate improved attention in reciting the days of the week backwards are clear signs that she is heading in the right direction. That said, delirium, by definition, is a waxing and waning condition, and Mrs. Guerrero may be more confused, disoriented, and unable to attend in the future. So long as she continues to not be a harm to herself or others, I do not see the need for an acute pharmacologic intervention, especially as she seems to be nearing discharge from the hospital to live with her daughter. Regarding her risperidone dose, it seems that family feels strongly about its utility in managing agitation and paranoid thoughts. I do wonder how much utility it may be having at the current dose, butit would be reasonable to continue if Mrs. Guerrero has been tolerating it without intolerable side ef fects. # Hypokinetic Delirium, Resolving # History of Stroke and Radiation for Chondroid Chordoma # Medical Comorbidities Safety - Risk of suicide in a hospital setting estimated to be low Hold status - Voluntary, not holdable Psychiatric hospitalization - does not meet criteria SUBJECTIVE Referring team: [facility] Medicine 11 ([facility]) HISTORY OF PRESENT ILLNESS Ms. Oneyda Guerrero is a 61 y.o. female from [facility] [id number] who was admitted 06/03/2022 5:51 PM for dehydration, diarrhea, and failure to thrive. Psychiatric history includes reports of paranoid thinking. Medical history notable for CVA, hyperlipidemia, type 2 diabetes, and endometritis s/p 2 week course of levofloxacin completed on May 28. Psychiatry is consulted for evaluation of delirium. On interview, Mrs. Guerrero is able to appropriately track me in the room and respond to my questions. She cooperates appropriately with tests of attention and orientation. She is able to express that she was recently treated in the hospital for an infection, though she does not know the name of the specific infection. She does know that she has plans to leave the hospital soon and will be going to stay with her daughter, whom she says takes good care of her. Psychiatric ROS As per HPI above. Psychiatric History No documented psychiatric history with the exception of some reports of paranoid thoughts. Notably, she is currently prescribed risperidone 0.25 mg at bedtime, which the primary team reports is used tomediate agitation/paranoia. She also receives mirtazapine 30 mg nightly. Family History / Mental Health History: No family history on file. SOCIAL HISTORY Social History Social History Narrative Not on file Social History Socioeconomic History Marital status: Tobacco Use Smoking status: Never Smokeless tobacco: Never Vaping Use Vaping Use: never used Substance and Sexual Activity Alcohol use: Never Drug use: Never Medical / Surgical History Past Medical History: Diagnosis Date Stroke (HCC) 08/2021 and 05/2021 Tumor Brain (HCC) Past Surgical History: Procedure Laterality Date OTHER CONVERTED SHX (SEE COMMENT) N/A 06/24/1998 Spinal drainage. Left frontotemporal craniotomy. Medications I have reviewed current medications and the MAR. -Current psychotropics: Mirtazapine 30 mg daily at bedtime, prednisone 5 mg daily, risperidone 0.25 mg daily at bedtime -Additional psychotropics prior to admission: None -PDMP Review: Unremarkable Medications Scheduled Medication Ordered Dose/Rate, Route, Frequency Last Action atorvastatin tablet 20 mg (LIPITOR) 20 mg, oral, Daily Given, 20 mg at 06/06 1002 calcium carbonate-vitamin D3 1,250 mg (500 mg calcium)-5 mcg (200 Unit) per tablet 1 tablet 1 tablet, oral, Daily with breakfast Given, 1 tablet at 06/06 1000 carvediloL tablet 3.125 mg (COREG) 3.125 mg, oral, BID with meals Given, 3.125 mg at 06/06 1001 cholecalciferol capsule 125 mcg (VITAMIN D3) 125 mcg, oral, Daily Given, 125 mcg at 06/06 1007 clopidogreL tablet 75 mg (PLAVIX) 75 mg, oral, Daily Given, 75 mg at 06/06 1002 desmopressin tablet 0.2 mg (DDAVP) 0.2 mg, oral, 3x weekly Given, 0.2 mg at 06/05 1631 ferrous sulfate tablet 65 mg of iron 65 mg of iron, oral, Daily Given, 65 mg of iron at 06/06 1002 heparin (porcine) injection 5,000 Units 5,000 Units, SC, Q12H EAGLE Given, 5,000 Units at 06/07 1157 insulin aspart U-100 injection 0-7 Units (NovoLOG FlexPen) 0-7 Units, SC, TID Given, 2 Units at 06/07 1437 insulin aspart U-100 injection 1-7 Units (NovoLOG FlexPen) 1-7 Units, SC, Once Ordered insulin glargine injection 4 Units 4 Units, SC, Daily Given, 4 Units at 06/07 1439 levothyroxine tablet 75 mcg (SYNTHROID, LEVOTHROID) 75 mcg, oral, 6x Weekly Ordered magnesium chloride DR tablet 128 mg (MAG-DELAY) 128 mg, oral, Daily before breakfast Ordered mirtazapine tablet 30 mg (REMERON) 30 mg, oral, Daily at bedtime Given, 30 mg at 06/06 2057 qcdtafdruliu-hnrp-JV-Ca-minerals 400 mcg (folic acid) tablet 1 tablet (THERAPEUTIC-M) 1 tablet, oral, Daily Given, 1 tablet at 06/06 1001 nystatin 100,000 unit/gram cream 1 application (MYCOSTATIN) 1 application, top, Daily Given, 1 application at 06/07 160 lnbrltxjp-dnedjb-hcricvale 280-160-250 mg per packet 1 packet (PHOS-NAK) 1 packet, oral, Q4H While awake Ordered jkrilvjgd-qrdjrv-onsirpzda 280-160-250 mg per packet 1 packet (PHOS-NAK) 1 packet, oral, Q4H While awake Given, 1 packet at 06/07 143 predniSONE tablet 5 mg (DELTASONE) 5 mg, oral, Daily Given, 5 mg at 06/06 1001 risperiDONE tablet 0.25 mg (RisperDAL) 0.25 mg, oral, Daily at bedtime Given, 0.25 mg at 06/06 2057 sodium chloride 0.9 % injection 10-30 mL 10-30 mL, IV, Once Ordered sodium chloride 0.9 % injection 10-30 mL 10-30 mL, IV, Once Ordered sodium chloride 0.9 % injection 3 mL 3 mL, IV, Q12H EAGLE Given, 3 mL at 06/06 2055 thiamine injection 100 mg (VITAMIN B1) 100 mg, IV, Daily Given, 100 mg at 06/06 2036 PRN Medication Ordered Dose/Rate, Route, Frequency Last Action acetaminophen tablet 650 mg (TYLENOL) 650 mg, oral, Q6H PRN Given, 650 mg at 06/06 1001 carboxymethylcellulose 0.5 % ophthalmic solution 1 drop (REFRESH PLUS) 1 drop, both eyes, 4x Daily PRN Given, 1 drop at 06/06 2104 ondansetron ODT disintegrating tablet 4 mg (ZOFRAN-ODT) 4 mg, oral, Q8H PRN Given, 4 mg at 06/05 2102 sodium chloride 0.9 % injection 10 mL 10 mL, IV, PRN Ordered sodium chloride 0.9 % injection 3 mL 3 mL, IV, PRN Ordered OBJECTIVE Vital Signs Temperature: 36.6 ??C Heart Rate: 82 Resp Rate: 14 Blood Pressure: 112/52 SpO2: 98 % Mental Status Examination Ms. Guerrero appeared comfortable, reclined in bed. Behavior/demeanor was calm and more interactive than expected. Speech was quiet and somewhat mumbled. Mood was not shared. Affect appeared blunted. Thought process was as logical as could be expected, without tangentiality, flight of ideas, or loose associations. Thought content was notable for no suicidal ideations, no suggestion of homicidal ideations, no apparent delusions in conversation. Perceptually declined auditory or visual hallucinations and there was no apparent response to internal stimuli. Insight improving and judgment improved based on ability to share a basic understanding of the current situation and the plan moving forward. Cognition Oriented to person, place, and month. Reports year as 2020 and believes it is Monday or Monday. She is able to state the months August through March in backwards order and the days of the week Monday through Monday in backwards order. Diagnostics I have reviewed diagnostic data completed at the time of evaluation. Blood Chemistry: Lab Results Component Value Date NA 141 06/07/2022 KPLASMA 3.9 06/04/2022 GLUCOSE 226 (H) 06/07/2022 MG 1.8 06/07/2022 CALCIUM 8.1 (L) 06/07/2022 BUN 15 06/07/2022 CREATININE 0.88 06/07/2022 TSH 0.2 (L) 06/04/2022 BILITOT 0.4 06/04/2022 BILIDIR <0.2 05/13/2022 AST 24 06/04/2022 ALT 8 06/04/2022 ALKPHOS 48 06/04/2022 ALBUMIN 3.1 (L) 06/06/2022 INR 1.0 06/07/2022 CV: Lab Results Component Value Date QTCINT 439 06/04/2022 Urinalysis / Dipstick: Lab Results Component Value Date UADMSRC3 Urine, Urine, Straight Catheter 06/04/2022 COLORU Yellow 06/04/2022 CLARITYU Clear 06/04/2022 PROTEINQUALU 14 06/04/2022 BLOODUR Negative 06/04/2022 LEUKOCYTESU Negative 06/04/2022 NITRITEU Negative 06/04/2022 KETONESU 5 (A) 06/04/2022 GLUCOSEU Negative 06/04/2022 MICROSCOPIC Normal 06/04/2022 WBCU 1-3 05/13/2022 Urine Drug Screen: Toxicology: Thank you for the consultation. Please contact the Psychiatry consult service pager [phone] with any questions. Daljit Jean-Baptiste M.D. Psychiatry, PGY-2 Lanie Gandara M.D. - 06/06/2022 7:28 PM CDT REASON FOR CONSULT Concern for acute stroke HISTORY OF PRESENT ILLNESS Ms. Guerrero is a 61 y.o. female who was admitted on 06/03/2022 for diarrhea and failure to thrive. STEAMER BLOCKER was called for new neurologic deficits concerning for acute stroke. Past medical history is notablefor choroid chordoma s/p resection complicated by panhypopituitarism and ischemic stroke x2 with chronic right sided weakness. Briefly, she was admitted with diarrhea and failure to thrive. She has been intermittently encephalopathic during hospitalization with worsening mental status early this afternoon. At approximately 6 pm, she was evaluated by the primary provider team and was found to have a new left sided facial droop. Last known normal is unclear. She was unable to participate in neuro exam and given her history andnew neurologic deficit, an STEAMER BLOCKER was called. Upon arrival of the STEAMER BLOCKER team, Mrs. Guerrero was hemodynamically stable. She was encephalopathic and did not participate in exam. No baseline neurologic exam has been done due to patient lack of participation. She is on Plavix for her prior strokes and is not on anticoagulation. OBJECTIVE I have reviewed the current vital sign data as applicable. Please review the STEAMER BLOCKER Narrator for details regarding this evaluation. PHYSICAL EXAM GEN: Alert, malnourished. EYES: No scleral icterus or injection. PERRL. NEURO: Limited by patient participation. Left facial droop at rest that improves with active facial movements. Sensation grossly intact. DIAGNOSTICS I have reviewed relevant laboratory, imaging, and other diagnostics as applicable to this consultation. ASSESSMENT & PLAN #1 Stroke Cerebrovascular Accident Personal History #2 Hypertension Essential Primary #3 Other Hyperlipidemia #4 Diabetes Mellitus Type 2 (HCC) #5 Diarrhea #6 Dehydration #7 Failure To Thrive Adult Ms. Guerrero is a 61 y.o. female with history of stroke x2 (location unknown) who was admitted for diarrhea and failure to thrive. STEAMER BLOCKER was called for new left sided facial droop. Neurologic exam was limited by patient participation. Neurology was called and recommended stat CT head with CT head/neck angiography. She was taken urgently to the CT scanner. CT was negative for acute stroke. She is stable to remain on the floor. Neurology recommended an outpatient stroke evaluation to determine the etiology of her strokes as they appear embolic on imaging. Otherwise, no new recommendations. RECOMMENDATIONS No indication for ICU transfer Recommend outpatient Neurology evaluation per Neurology team The case was discussed with the CCOD, Dr. Dickens. Critical care time 90 minutes. This is time spent at this critically ill patient's bedside actively involved in patient care as well as the coordination of care and discussions with the patient's family. This does not include any procedural time which has been billed separately. Lanie Gandara M.D. Keily Polanco M.D. - 06/06/2022 7:17 PM CDT SUBJECTIVE REFERRAL [id number] CHIEF COMPLAINT / REASON FOR VISIT Stroke alert HISTORY OF PRESENT ILLNESS Oneyda Guerrero is a 61 y.o. right-handed female with medical comorbidities significant for chondroid chordoma status post subtotal resection (1997), chronic right cerebellar, right temporal infarcts, right and left basal ganglia, and left cerebellar hemisphere infarcts (noted on 05/14) with residual incoordination and right hemiparesis, language dysfunction, outside diagnosis of frontotemporal dementia who presents as a stroke activation. The patient's primary team was unable to give it time of last known normal, and estimate that it wasat the time of admission on 06/03. Around 7:40 p.m. tonight the patient was noted to have a left lower facial droop, and a stroke code was activated. The patient's examination at that time was confounded by the patient's Upon arrival, vitals were Blood pressure 114/59, pulse 74, temperature 36.6 ??C, temperature source Oral, resp. rate 16, height 149.9 cm, weight 45 kg, SpO2 97 %. . Labs were significant of glucose of 177, lactate 2.9, platelets 145, hemoglobin 10.4. EKG showed normal sinus rhythm. Noncontrast head CTwas no acute infarct. CTA head & neck showed 50% narrowing of the left internal carotid artery distally. CT perfusion was negative for acute infarct. The patient was deemed not to be a candidate for thrombolysis given her minimal deficits. She was not a candidate for thrombectomy given the absenceof large vessel occlusion. In August of 2021, the patient was found to have a late subacute/chronic infarct at the left basalganglia. The patient's daughter states that she is had residual right hemiparesis after this event. She was also found to have right temporal and right cerebellar infarcts. She is been taking Plavix 75mg daily since that time. 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 She underwent a TTE locally which reportedly showed no evidence of PFO. Last known normal: 06/03 Pager time: 06/06/2022 7:40 pm Arrival time:06/06/2022 7:44 pm NIHSS done: 06/06/2022 7:[address] interpreted: 06/06/2022 7:59 pm tPA decision: 06/06/2022 7:59 pm tPA bolus: n/a tPA infusion: n/a REVIEW OF SYSTEMS AND HISTORY Oneyda Guerrero's history was reviewed including allergies, current medications, review of systems, family history, medical and surgical history, social history, and problem list. Pertinent information is outlined in the history of present illness. OBJECTIVE PHYSICAL EXAM Vitals: BP 114/59 (BP Location: Left arm) Pulse 74 Temp 36.6 ??C (Oral) Resp 16 Ht 149.9 cm Wt 45 kg SpO2 97% BMI 20.03 kg/m?? Neurological examination: Alert. Resistant to examination. She will intermittently follow one step commands. Gaze is conjugate. PERRL. Left lower facial asymmetry apparent with smile. Tongue protrudes midline. NIHSS ASSESSMENT 1A. LOC: 0=alert; keenly responsive 1B. Questions: 0=answers both questions correctly 1C. Commands: 0=Performs both tasks correctly 2. Best Gaze: 0=normal 3. Visual: 0=No visual loss 4. Facial Palsy: 1=Minor paralysis (flattened nasolabial fold, asymmetric on smiling) 5A. Left Arm Motor: 0=No drift, limb holds 90 (or 45) degrees for full 10 seconds 5B. Right Arm Motor: 0=No drift, limb holds 90 (or 45) degrees for full 10 seconds 6A. Left Leg Motor: 0=No drift, leg holds 30 degrees for full 5 seconds 6B. Right Leg Motor: 2=Some effort against gravity, leg falls to bed by 5 seconds, but has some effort against gravity 7. Limb Ataxia: 0=cannot assess 8. Sensory: 1=Mild to moderate sensory loss; patient feels pinprick is less sharp or is dull on the affected side; there is a loss of superficial pain with pinprick but patient is aware She is being touched 9. Best Language:1=Mild to moderate aphasia; some obvious loss of fluency or facility of comprehension without significant limitation on ideas expressed or form of expression. Reduction of speech and/or comprehension, however, makes conversation but provided materials difficult or impossible. 10. Dysarthria: 0=Normal 11. Extinction: 0=No abnormality TOTAL SCORE: 5 DATA I have reviewed all relevant diagnostics. ASSESSMENT / PLAN IMPRESSION Oneyda Guerrero is a 61 y.o. right-handed female with medical comorbidities significant for chondroid chordoma status post subtotal resection, chronic right cerebellar, right temporal infarcts, right and left basal ganglia, and left cerebellar hemisphere infarcts (noted on 05/14) with residual incoordination and right hemiparesis, language dysfunction, outside diagnosis of frontotemporal dementia who presents as a stroke activation for left lower facial droop. The neurologic examination is difficult given her limited participation and that we have no recent documented neurologic examination in the chart for comparison. Her daughter reports that she is a chronic right hemiparesis and language dysf unction at baseline. It is unclear if the left lower facial droop was present previously, and was more apparent in the setting of illness and fatigue. She has multiple chronic infarcts some of which could result in this deficit. Nevertheless, she should continue on her home Plavix and atorvastatin shealready has outpatient Neurology follow-up for later this week. Nonurgent MR brain can be obtained to definitively rule out a new infarct. Given the presence of multiple embolic appearing infarcts on her imaging, should undergo completion of embolic stroke workup including Holter monitoring if not previously done RECOMMENDATIONS -keep outpatient neurology follow up appointment -consider non-urgent MR brain to definitively rule out new infarct, this can also be done in the outpatient setting -continue home Plavix and atorvastatin -prolonged cardiac monitoring in the outpatient setting Thank you for this consult. This is an Emergency Neurology consult note. Please page [phone] with any questions. Keily Polanco M.D. PGY4, Neurology, [phone] Gela Chilel, DANIEL - 06/06/2022 2:15 PM CDT Physical Therapy Inpatient Evaluation/Treatment SUBJECTIVE Patient's Name: Oneyda Guerrero Referring/Attending Provider: Taylor Ivory M.D. Medical Diagnosis: Failure To Thrive Adult [R62.7] Reason for Referral: PT Evaluate and Treat Onset Date: 06/03/22 Payor: MEDICARE / Plan: MEDICARE A AND B / Product Type: Medicare / PERTINENT MEDICAL / SURGICAL HISTORY: Patient Active Problem List Diagnosis Incontinence Urinary Abnormal Ultrasound Endometrium Infection Urinary Tract Endometritis Stroke Cerebrovascular Accident Personal History Hypertension Essential Primary Other Hyperlipidemia Diabetes Mellitus Type 2 (HCC) Diarrhea Dehydration Failure To Thrive Adult Past Surgical History: Procedure Laterality Date OTHER CONVERTED SHX (SEE COMMENT) N/A 06/24/1998 Spinal drainage. Left frontotemporal craniotomy. History of Present Illness: Mrs. Guerrero is a 61 y.o. female with medical comorbidities including personal history of left-sided CVA, hyperlipidemia, diabetes mellitus type 2, endometritis status post 2 week course of levofloxacin (completed on 05/28). She was evaluated in the infectious disease clinicwhere concern was raised about the possibility of C difficile infection given elevated creatinine to1.84 on 05/23 and reports of worsening diarrhea and failure to thrive that corresponded with administration of antibiotics. Of note, she also had stroke 05/2021 and 08/2021 and her right lower extremity is the most affected. Her daughter is presents and reports that since onstet of the infection, she feels that she was making progress during stroke rehab, and has lot a lot of strength since she has been eating less and vomiting more. Daughter reports that Oneyda has been sleeping most of the day for the past few days. Prior Function/Occupational Profile Dominant Hand: Right Lives With: Family (daughter, son-in-law, granddaughter) Receives Help From: Family ADL Assistance: Required assistance ADL Assistance Comments: Oneyda is incontinent and dependent for Depends management. Daughter is helping her with stroke rehab (outpatient 1x/week, daily follow-through at home), but she has been unable to do rehab regularly since January because she has been in and out of the hospital. Oneyda was previously dressing her self, however recently needs assist for dressing. Recently has been sitting in shower, bathing with assist. IADL/Homemaking Assistance: Required assistance IADL/Homemaking Assistance Comments: Daughter completes cooking, laundry, grocery shopping. Daughtergoes through medications with nOeyda and daughter manages medications. 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 [place]. Prior Mobility/Functional Transfers Level of [place]: Modified independent Previous Transfer/Mobility Assistance Comments: Walks a short distance with a front-wheeled walker with a basket (was up to walking 60 feet in stroke rehab January-February timeframe). Uses transport chair forgetting to and from appointments. Gait Devices/Wheelchair Used: Front wheeled walker, Manual wheelchair Gait Devices/Wheelchair Used Comments: Owns a mendoza walker due to her small stature. Home Equipment Home Adaptive Equipment: [employer], Sock aid, Long-handled shoe horn (Does not use typically) Gait Devices Owned: Front-wheeled walker Other DME Equipment : Hospital bed Wheelchair : Manual Bathroom Equipment: Grab bars in shower, Built-in shower seat Home Living Type of Home: House Home Layout: Two level, Able to live on main level with bedroom/bathroom Home Layout Comments: Pt's bedroom & bathroom, living room and kitchen is on main level. One step up into the kitchen area. Home Access: Level entry Bathroom Shower/Tub: Walk-in shower Walk-in shower location: Main floor Bathroom Accessibility: Yes Dominant Hand: Right Family/Caregiver Present: Yes (Neva Bach) Patient/Caregiver Goals: To return to participation in stroke rehab in order to regain her strength and endurance. Daughter's main concerns are transfers and other activities of daily living the patient cannot currently perform to regain her independence. Patient Comments: Patient was eating upon arrival, but daughter and patient agreed to PT evaluation to evaluate her homegoing needs. Precautions Other Precautions: Fall risk, history of left sided stroke with right side weakness, cognition Fall Risk (65 and older) Fall in the last 12 months: Yes Did you have an injury with the fall?: Yes (Black eye, C6 fracture 7 weeks ago- no precautions) Fall Risk Comments: Patient has had falls at home and in the hospital recently OBJECTIVE Vitals taken during session: Pre-Activity: Pulse rate: 78 bpm Blood Pressure: 137/62 (76) mmHg O2 96%: Room air Post Activity: Pulse rate: 80 bpm Blood Pressure: 113/53 (68) mmHg O2: 98% Room air Comments: Vitals monitored throughout session; within normal ranges. Cognition Arousal/Alertness: Delayed responses to stimuli Attention: Impairments noted Initiation: Slow/delayed initiation Orientation: Unable to assess Following Commands: Inconsistently following commands Following Commands Comments: Able to follow one step commands with repetition of cues from daughter Safety/Judgment Comments: Very cautious with moving during dressing and functional mobility, Daughter reports that she has been a flight risk in the past. Cognition Comments: Difficult to ascertain patient's mental status due to stroke hx, current functional status, somnolence, hearing and language barriers. Benefitted from short, one step directions with repetition and consistent cues to stay awake and alert. Neuro/Integumentary Screen: Sensation: Patient non-responsive to query Proprioception: Patient non-responsive to query Integumentary: Bilateral heels well perfused and intact. Skin integrity intact Fall Risk Factors - The patient has the following risk factor for falls/injury: Previous falls , Gait Impairment, Decreased muscle strength, Vision Impairments , > 4 medicationsor psychoactive medications, Dizziness or orthostasis , Functional limitation or limitations in ADL's, Disability, Female, Urinary incontinence , Diabetes, and Cognitive Impairments General ROM / Strength Screening ROM - Upper Extremity Screen: Addressed, no concerns noted ROM - Upper Extremity Screen Comments: WFL ROM - Lower Extremity Screen: Impaired right & left ROM - Lower Extremity Screen Comments: Unable to move through range of motion actively. Passive range of motion not restricted. Strength - Upper Extremity Screen: Impaired right & left Strength - Upper Extremity Screen Comments: generalized weakness. Unable to test shoulder shrug and depression. Strength - Lower Extremity Screen: Impaired right & left Strength - Lower Extremity Screen Comments: Generalized weakness with higher level of weakness in the right lower extremity. Able to plantarflex and dorsiflex bilaterally to neutral, but unable to actively move through range of motion with knees and hips in supine lying. Quad contraction observed during short arc quad, but unable to fully straighten leg. Posture/Postural Control Cervical: Forward head Bed Mobility - Supine to Sit # of Assistants: 1 Level of Assistance: Minimal assistance Device: Head of bed elevated, Bed rail Cuing: Verbal, Tactile Comments: Increase time, minimal assist for leg management. Patient held onto bed rail. Bed Mobility - Sit to Supine # of Assistants: 1 Level of Assistance: Moderate assistance Device: Bed rail, Head of bed elevated Comments: Therapist controlled patient's trunk and legs to lay back into bed. Sit to Stand Transfers # of Assistants: 1 Transfer Surface: Bed Transfer Equipment: Gait belt, Front wheeled walker Level of Assistance: Minimal assistance Assessment/Delivery: Assessed, Instructed, Therapist assisted Comments: Patient requires only minimal assist to stand up from seated with the bed in a lowered position. Performed x2 Stand to Sit Transfers # of Assistants: 1 Transfer Surface: Bed Transfer Equipment: Gait belt, Front wheeled walker Level of Assistance: Minimal assistance Assessment/Delivery: Assessed, Therapist assisted Comments: Required education and tactile and verbal cuing to reach hand back for support. Poor eccentric control during descent. Balance Static Sitting-Balance: Fair (Maintains balance with handheld/contact guard assistance) Dynamic Sitting-Balance: Fair (Maintains balance with handheld/contact guard assistance) Static Standing-Balance: Fair (Maintains balance with handheld/contact guard assistance) Dynamic Standing-Balance: Fair (Maintains balance with handheld/contact guard assistance) Gait Assessment/Training Distance (m): 4 m Surface: Even, Smooth/hard Device: Gait belt, Front-wheeled walker # of Assistants: 1 Level of Assistance: Minimal assistance Quality/Pattern: Shuffling, Step-to (Short steps, shorter on left.) Stability: Fair with use of 2 wheeled walker Assessment of Gait: Slow, short, shufflling steps. Requires minimal assistance to shift her weight laterally to offload her feet and allow step through. Cueing Provided: Tactile, Verbal Training/Intervention: Lateral weight shifts provided to offload feet and allow stepping. Verbal andtactile cues to stand straight and look ahead. Response: Patient has difficulty managing the walker. Activity Tolerance Endurance: Tolerates less than 10 min of activity Sitting Tolerance: Able to sit edge of bed independently with contact guard assist for several minutes. Standing Tolerance: Able to stand with contact guard assist and walker for several minutes. Activity Tolerance Comments: Only able to ambulate approximately 2 m from the bed before becoming exhausted. Had to take standing rest break on the way back. Education provided this session: Principles of neuroplasticity reinforced, which the daughter is already somewhat familiar with The patient/family educated on safe transfer techniques with functional mobility/activity. The following coordination of care occurred today: Patient's nurse was contacted and patient's status was discussed, Discussed patient's care with OT Inpatient AVS Complete - PT: Yes Inpatient AVS Completion Date - PT: 06/06/22 Patient was left in bed with bed alarm on at end of session with call light in reach, all needs met and questions answered. Patient instructed to have assistance with mobility. Outcome Measures [facility] Inpatient Short Form: -[facility] Basic Mobility (V.2) How much help from another person do you currently need???If the patient hasn't done an activity recently, how much help from another person do you think he/she would need if he/she tried? 1. Turning from your back to your side while in a flat bed without using bedrails?: A Lot 2. Moving from lying on your back to sitting on the side of a flat bed without using bedrails?: A Lot 3. Moving to and from a bed to a chair (including a wheelchair)?: A Lot 4. Standing up from a chair using your arms (e.g., wheelchair, or bedside chair)?: A Little 5. To walk in hospital room?: A Lot 6. Climbing 3-5 steps with a railing?: Total -[facility] Basic Mobility (V.2) Raw Score: 12 -[facility] Basic Mobility (V.2) Standardized Score: 32.23 Interpretation: Clinicians answer the -[facility] Inpatient Short Form based on observed patient activityand/or clinical judgement (ie. patient can be scored without physically performing each activity) According to scoring guidelines: Those going to home had an average score of 20.1 Those going home with home care had an average score of 17.9 Those going to SNF had an average score of 14 Those going to IRF had an average score of 13.6 Those going to a LTAC had an average score of 11.5 Assessment Discharge Therapy Needs - PT: Ongoing skilled physical therapy Skilled therapy can include physical therapy provided by home health, outpatient clinic, or a post-acute facility. The location of these services is determined by the patient's care team in partnershipwith patient/family. Level of Care Needed - PT: Assistance with transfers (Comment), Assistance with walking and moving around the home, Assistance with bed mobility, Assistance with stairs, Cognitive assistance needed, Physical assistance needed Equipment Recommended - PT: Front-wheeled walker, Wheelchair Pt owns Barriers to Discharge Home: Current functional status, Fall risk Clinical Impression of today's session: Patient is a 61 y.o. female who presents with impairments in functional transfers, gait mechanics, lower extremity strength and force production, balance, cognition, and activity tolerance as compared to baseline mobility status, resulting in the following functional deficits: decreased ability to complete essential functional transfer tasks, stand for household tasks, ambulate household and community distances, and engage in community mobility. Her functional impairments and prior fall history makeher at an increased risk for falls. Patient presents below her functional baseline and is requiring minimal assist of 1 with use of front wheeled walker and a gait belt while completing functional transfers and mobility. She was quite somnolent today and required consistent, clear commands to participate in activity. According to OT andthe daughter, she was much more functional yesterday. Her daughter encourages her to participate more in activity during our session, and has some success, but patient reports she is very tired. She ismost limited by impaired muscular strength/endurance, impaired movement coordination, and somnolenceat this time. It was difficult to differentiate between cognitive difficulties and the patient's somnolence and inability to fully open her eyes- therapist assessment is that patient is cognitively more intact than is obvious from her participation. When she spoke, it was soft, but her speech made sense in context and showed an awareness of the overall situation, and her understanding of [place] was sufficient to participate in therapy today. She required no translation from the daughter. Patient plan is currently to discharge home with live-in help who will be present when needed, and patient preference is to do so today. Physical therapy recommends, however, that the patient be kept at this time, due to the large functional decline over the past day, and the safety concerns that present with this decline. These concerns have been shared with the team through [employer] secure chat communication. PT will follow up to re-assess the patient as necessary. Recommend ongoing physical therapy following hospital dismissal to progress independence and safety with transfers. How these needs are met after hospitalization would be best determined in collaboration with the patient/family and our care management team. At this time, physical therapy will continueworking with patient to restore and maximize function, maximize safety, optimize mobility, teach andeducate family and/or caregivers, and facilitate return to prior level of function. Rehab potential: Ms. Guerrero has Good potential to achieve established physical therapy goals withinthe time frame outlined below. Progress: Slow progress, medical status limitations Tiered PT Evaluation Codes: Comorbid Conditions: Cognitive/memory disorder, Cerebrovascular accident, Cancer, Diabetes Personal Factors: Communication deficit, History of falls, Language barrier, Needs assistive device,Visual impairment, Hearing impairment, Safety awareness Examination elements: 4+ Clinical Presentation: Unstable Clinical Decision Making: High complexity clinical decision making Functional Goals: PT Inpatient Goals PT Goal #1: Patient will be independent with supervision with home exercise program in order to facilitate improvment of strength and return to prior level of function. PT Goal #1 Status: Ongoing PT Goal #2: Patient will demonstrate modified independent bed mobility for improved functional mobility and independence, as well as return to prior level of function. PT Goal #2 Status: Progressing PT Goal #3: Patient will demonstrate transfers using the least restrictive assistive device with supervision to demonstrate improved functional mobility and independence, as well as return to prior level of function. PT Goal #3 Status: Slowly progressing PT Goal #4: Patient will be able to ambulate 20 meters with supervision using the least restrictive assistive device while executing the task with good safety awareness, stability, and functional strength to facilitate safe discharge and return to prior level of function. PT Goal #4 Status: Slowly progressing Plan Patient unable to verbalize agreement to the plan of care and goals due to mental status or level ofconsciousness, but family members present to consult and agree with the plan as stated above. Treatment Plan: Plan: Plan of care initiated PT Amount: 1 visit per day PT Frequency: 5 times per week PT Inpatient Duration : Until goals are met or hospital discharge Requires Inpatient Follow-Up: Yes PT - Next Inpatient Appointment: 06/07/22 PT Plan Comments: Continue with gait, bed mobility, transfers, and LE strengthening with direct verbal cues for commands, PM sessions to maximize her participation. Treatment interventions may include: Treatment/Interventions: Therapeutic exercise, Therapeutic functional activity, Neuromuscular re-education, Gait training, Self-care/home management Billing: Time Spent with Patient Evaluations PT Eval - High Complexity: 29 min Therapeutic Interventions Therapeutic Activity (min): 20 min Time Tracking Total Timed Units (min): 20 min Total Treatment Time (min): 49 min Gela Chilel SPT Associated attestation - Heriberto Crow P.T., D.PAnuj - 06/06/2022 5:16 PM CDT This therapist has reviewed all documentation and supervised today???s session. The therapist agreeswith the plan developed in collaboration with the patient. Mario Porter R.N. - 06/06/2022 10:23 AM CDTAssociated Order(s): IP CONSULT TO CARE MANAGEMENT Discharge Planning Assessment SUBJECTIVE Assessment Information Referral Source: Early Screen for Discharge Planning Referral Reason: Discharge Planning Primary Language: Night Zookeeper Fill Technician Services Used: No Person(s) present during interview: Person(s) Present During Interview: childBelinda History of Present Illness #1 Stroke Cerebrovascular Accident Personal History #2 Hypertension Essential Primary #3 Other Hyperlipidemia #4 Diabetes Mellitus Type 2 (HCC) #5 Diarrhea #6 Dehydration #7 Failure To Thrive Adult Social History Marital Status: Family / Household: Self, Daughter Mikala Finance/Insurance Primary insurance: MEDICARE A AND B Secondary insurance: [place] MED[place] Does the patient have any financial concerns? yes benefits: No Advance Directives Legal Decision Maker: Durable Power of [facility] Advance Directives: Advanced Care Plan Advance Directives Status: Information given OBJECTIVE Baseline Functional Status Baseline Activities of Daily Living Mobility: Stand by assist Dressing: Needs assistance Feeding: Independent Bathing: Needs assistance Grooming: Needs assistance Toileting: Needs assistance Behavior: Appropriate, Pleasant, Calm, Cooperative Communication: Language barrier Shopping: Needs assistance Transportation: Support from family Medication Management: Needs assistance Housekeeping: Needs assistance Meal Prep: Needs assistance Managing Finances: Needs assistance Assistive Devices: Walker - front wheeled, Hearing aid(s), Eyeglasses, Wheelchair - manual Baseline Services/Resources Primary care clinic and provider: ELSEWHERE, PCP Additional Resources: N/A Anticipated Needs Functional Status: Bathing, Dressing, Grooming/hygeine, Toileting, Transfer to/from bed, chair, etc., Mobility, Meal preparation, Medication set- up/administration, Housekeeping, Shopping, Managing finances, Transportation use (drive car, use taxi/bus) Assistive Devices: None Anticipated Modifications to the Patient's Home: None Transportation Needs: Support from family Does the patient need discharge transport arranged?: No Anticipated Discharge Destination: Home or Self Care ASSESSMENT / PLAN Assessment: The assistant property manager met with Oneyda Guerrero to discuss her current hospitalization and home going needs. The patient was unaccompanied. The patient was a reliable historian. The role of assistant property manager was reviewed. The patient reviewed her prior level of care and support system. The patient receives support from her daughter. The patient's daughter described her living environment as a multiple level home with level entry. Housekeeping, grocery shopping, meal prep, and other household responsibilities have previously been completed by patient's daughter. assistant property manager discussed the patient's potential needs at dismissal based on their home setting, previous needs and responsibilities, homebound status, and relevant assessments with the patient's daughter. The patient will be safe and supported to return home with family when medically ready. Support will be provided by the patient's daughter Mikala. The patient's daughter demonstrated understanding when discussing her home going plans and anticipated needs. The patient is unable to participate in the assessment. The patient's daughter Mikala is the patient's daughter and caregiver. The patient lives in a two level home with her daughter Mikala. Mikala is the patient's caregiver. Mikala reports that she assists the patient with all ADLs. Mikala reports that she is not getting paid for being the patient's caregiver. Mikala has financial concerns because of this. The patient does not have advanced directives, but the patient's daughter is requestingadvanced directives. The patient does not have financial concerns, but Mikala is asking for assistance with paperwork to become a paid caregiver for her mother. Mikala will provide transportation upon discharge. At this time, the care team has not identified any skilled post-hospital discharge care needs that require the assistance of the Care Management Team. After reviewing the patient's chart and meeting with the patient's daughter, the assistant property manager deemed the LACE+/readmission questions were not necessary. The patient's daughter reports understanding that she will dismiss from the hospital when medically stable. Pending hospital course and medical readiness, no barriers to dismissal have been identified at this time. Plan: The patient's daughter agrees with the following plan. Patient's anticipated discharge disposition is: Home to Self Care Transportation upon dismissal will be provided by family--Mikala . assistant property manager recommended nothing at this time. assistant property manager provided information regarding the dismissal process and the Advance Health Care Planning: Making Your Wishes Known [id number] booklet along with education on the benefits of completing an advance directive and resources that may assist them in this process. The patient sharedno further questions or concerns regarding advance directives. The patient appears to have an understanding of how to complete an advance directive and reported awareness of resources to assist them. assistant property manager placed or requested the following hospital-based consult orders and/or referrals: None. assistant property manager will continue to assess for homegoing needs with the interdisciplinary team. assistant property manager encouraged the patient to reach out with any questions/concerns. Signed by: Mario Porter R.N. 06/06/2022 Key Lala M.S., O.T. - 06/05/2022 2:46 PM CDT Occupational Therapy Acute Hospital Inpatient Evaluation/Treatment By co-signing this note, the provider certifies the therapy being provided to this patient is reasonable and necessary for the diagnosis or treatment of this patient. SUBJECTIVE Patient's Name: Oneyda Guerrero Referring/Attending Provider: Bryce Burnett M.D. Medical Diagnosis: Failure To Thrive Adult [R62.7] Reason for Referral: Occupational Therapy Evaluation and Treatment General acute care occupational therapy evaluation and intervention Onset Date: 06/03/22 Payor: MEDICARE / Plan: MEDICARE A AND B / Product Type: Medicare / PERTINENT MEDICAL / SURGICAL HISTORY: Patient Active Problem List Diagnosis Incontinence Urinary Abnormal Ultrasound Endometrium Infection Urinary Tract Endometritis Stroke Cerebrovascular Accident Personal History Hypertension Essential Primary Other Hyperlipidemia Diabetes Mellitus Type 2 (HCC) Diarrhea Dehydration Failure To Thrive Adult Past Surgical History: Procedure Laterality Date OTHER CONVERTED SHX (SEE COMMENT) N/A 06/24/1998 Spinal drainage. Left frontotemporal craniotomy. History of Present Illness:Mrs. Guerrero is a 61 y.o. female with medical comorbidities including personal history of CVA, hyperlipidemia, diabetes mellitus type 2, endometritis status post 2 week course of levofloxacin (completed on 05/28). She was evaluated in the infectious disease clinic where concern was raised about the possibility of C difficile infection given elevated creatinine to 1.84 on 05/23 and reports of worsening diarrhea and failure to thrive that corresponded with administration of antibiotics. Of note, she also had stroke 05/2021 and 08/2021. Her daughter is presents and reports thatsince onstet of the infection, she feels that she was making progress during stroke rehab, and has lot a lot of strength since she has been eating less and vomiting more. Daughter reports that Oneyda has been sleeping most of the day for the past few days. Occupational Profile: Prior Function/Occupational Profile Lives With: Family (daughter, son-in-law, granddaughter) Receives Help From: Family ADL Assistance: Required assistance ADL Assistance Comments: Oneyda is incontinent and dependedent for Depends management. Daughter is helping her with stroke rehab (outpatient 1x/week, daily follow through at home). Oneyda was previously dressing her self, however recently needs assist for dressing. Recently has been sitting in shower, bathing with assist. IADL/Homemaking Assistance: Required assistance IADL/Homemaking Assistance Comments: Daughter completes cooking, laundry, grocery shopping. Daughtergoes through medications with Oneyda and daughter manages medications. Driving: Does not drive Occupational Role: Unemployed Prior Mobility/Functional Transfers Level of [place]: Modified independent Previous Transfer/Mobility Assistance Comments: Walks a short distance with a front-wheeled walker with a basket (was up to walking 60 feet in stroke rehab). Uses transport chair for getting to and from appointments. Gait Devices/Wheelchair Used: Front wheeled walker, Manual wheelchair Home Living Type of Home: House Home Layout: Two level, Able to live on main level with bedroom/bathroom Home Layout Comments: Pt's bedroom & bathroom, living room and kitchen is on main level. One step up into the kitchen area. Home Access: Level entry Bathroom Shower/Tub: Walk-in shower Home Equipment Home Adaptive Equipment: [employer], Sock aid, Long-handled shoe horn (Does not use typically) Gait Devices Owned: Front-wheeled walker Other DME Equipment : Hospital bed Wheelchair : Manual Bathroom Equipment: Grab bars in shower, Built-in shower seat Family/Caregiver Present: Yes (daughter) Patient/Caregiver Goals: To return to participation in stroke rehab in order to regain her strenght and endurance Patient Comments: Patient sleepy and cold this date, able to participate in OT evaluation with support from daughter. Fall Risk (65 and older) Fall in the last 12 months: Yes Fall Risk Comments: Patient has had falls at home and in the hospital recently Precautions Other Precautions: Fall risk, history of left sided stroke with right side weakness, cognition OBJECTIVE Activity Tolerance Endurance: Tolerates less than 10 min of activity Activity Tolerance Comments: Tolerated walking from bed to across the hallway with signs of fatigue and need for seated rest break (less than 50 feet). Gross Hand Function Right Hand Gross Grasp: Functional Left Hand Gross Grasp: Functional Right Hand Coordination: Functional Left Hand Coordination: Functional Balance Static Sitting-Balance: Fair (Maintains balance with handheld/contact guard assistance) Dynamic Sitting-Balance: Fair (Maintains balance with handheld/contact guard assistance), Good (Maintains balance without support) Static Standing-Balance: Fair (Maintains balance with handheld/contact guard assistance) Dynamic Standing-Balance: Fair (Maintains balance with handheld/contact guard assistance) General ROM / Strength Screening ROM - Upper Extremity Screen Comments: Functional for dressing tasks. Strength - Upper Extremity Screen: Impaired right & left Strength - Upper Extremity Screen Comments: generalized weakness Strength - Lower Extremity Screen: Impaired right & left Strength - Lower Extremity Screen Comments: Generalized weakness with higher level of weakness in the right lower extremity. Cognition Cognitive assessment method: Therapist observations, Caregiver/family report Arousal/Alertness: Delayed responses to stimuli Attention: Impairments noted Sustained: Moderate Divided: Moderate Selective: Moderate Attention Comments: Very distractable and sleepy, required minimal cues to keep eyes open and stay awake. Initiation: Slow/delayed initiation Orientation: Unable to assess Following Commands: Inconsistently following commands Following Commands Comments: Able to follow one step commands with repetition of cues from daughter Problem Solving Comments: Able to problem solve simple solutions to being cold on own (warm blanket,extra socks, hands in pockets). Safety/Judgment Comments: Very cautious with moving during dressing and functional mobility, Daughter reports that she has been a flight risk in the past. Cognition Comments: Patient's cognition may be impacted by her lack of nutrition, somnolence, difficulty hearing, and language barrier. Today, benefitted from short, one step directions with repetitionand consistent cues to stay awake and alert. Bed Mobility - Supine to Sit # of Assistants: 1 Level of Assistance: Minimal assistance Device: Head of bed elevated, Bed rail Cuing: Verbal, Tactile Comments: Patient required increased time for movements when transitioning to seated edge of bed, observed to move very slowly. Min physical assist to move legs to the edge of bed, with min support at shoulders and trunk to raise into sitting upright. Sit to Stand Transfers # of Assistants: 1 Transfer Surface: Bed Transfer Equipment: Gait belt, Front wheeled walker Level of Assistance: Minimal assistance Assessment/Delivery: Assessed, Instructed, Therapist assisted Comments: Min assist to raise into full standing, with tactile cue to support self on walker. Stand to Sit Transfers # of Assistants: 1 Transfer Surface: Chair Transfer Equipment: Gait belt, Front wheeled walker Level of Assistance: Contact guard assistance Assessment/Delivery: Assessed, Therapist assisted LE Dressing LE Dressing Location: Supported sitting in bed LE Dressing Delivery: Assessed, Therapist Assisted, Facilitated LE Dressing Items Included: Socks, Pants LE Dressing Level of Assistance: Moderate assistance LE Dressing Comments: Oneyda donned hospital socks over her fuzzy socks due to being cold, requiredmoderate assist to pull on second pair of socks as they were somewhat tight. Independent in threading legs into pants, with moderate assist to manuever legs through the pants. With head of the bed lowered, able to pull pants detention up over hips, with min assist to finish pulling pants up when standing edge of bed. ADL Comments ADL Comments: Oneyda motivated to walk into the hallway, with use of front wheeled walker and gait belt. Presented with short, shuffling steps. Required increased time and effort to turn around to return to room, and was able to communicate -with promopts from OT- when she needed a seated rest break. Communicated discomfort in right leg, saying it felt heavy. Education provided today: Role and goals of OT Team Communication: Patient's nurse was contacted and patient's status was discussed, Discussed patient's care with PT Outcome Measures [facility] Inpatient Short Form: Putting on and taking off regular lower body clothing?: A Little Putting on and taking off regular upper body clothing?: A Little Taking care of personal grooming such as brushing teeth?: A Little Bathing (including washing, rinsing, drying)?: A lot Toileting, which includes using toilet, bedpan, or urinal?: Total Eating meals?: A Little Daily Activities Raw Score (max 24): 15 Daily Activities Standardized Score: 34.69 Interpretation: Clinicians answer the [facility] Inpatient Short Form based on observed patient activityand/or clinical judgement (ie. patient can be scored without physically performing each activity) Based on scoring guidelines using the raw score value: Those going to home had an average score at or above 18 Those going to facility had an average score at or below 17 Patient was left in wheelchair with daughter, nursing approved, at end of session with call light inreach, all needs met and questions answered. Assessment Discharge Therapy Needs - OT: Ongoing skilled occupational therapy Skilled therapy can include occupational therapy provided by home health, outpatient clinic, or a post-acute facility. The location of these services is determined by the patient's care team in partnership with patient/family. Level of Care Needed - OT: Assistance with toileting, Assistance with toilet/shower transfers, Assistance with medication set up/administration, Assistance with showering/bathing, Assistance with eating/feeding, Assistance with dressing, Assistance with meal preparation, Assistance with financial manag ement, Assistance with transportation, Assistance with housekeeping, Assistance with shopping, Cognitive assistance needed, Physical assistance needed Barriers to Discharge Home: Current functional status Clinical Impression: Currently, patient presents with impairments including somnolence, fatigue, weakness, balance impairment, impaired cognition, decreased activity tolerance resulting in the following functional deficits: decreased participation, safety and independence in ADL, IADL and functional mobility. Today, Oneyda required increased time and repeated prompts in order to maintain attention and alertness to participate in OT evaluation, and demonstrated ability to perform lower body dressing with moderate assist. Oneyda was motivated to walk into the hallway, and required a seated rest break after walking lessthan 50 ft. Oneyda was supported by her daughter today, daughter reports that Oneyda was recently m aking progress in independence in self cares during Stroke Rehab (independent in dressing, standing for showers). At home, Oneyda is supported 24 hours by daughter, receiving assist for all IADL and total assist for managing toileting. Today, patient presents as below their functional baseline, and continued skilled acute OT services are recommended in order to maximize safety, function and quality of life. Rehab potential: Ms. Guerrero has fair potential to achieve established occupational therapy goals within the time frame outlined below. Tiered OT Evaluation Codes: Personal Factors: Communication deficit, History of falls, Language barrier, Needs assistive device,Visual impairment, Hearing impairment, Safety awareness Occupational Profile and History review: Expanded Performance Deficits: at least 5 performance deficits Evaluation Complexity: Moderate Functional Goals: OT Goal #1: Improve dressing tasks to modified independence to progress towards prior level of functioning OT Goal #2: Improve bathing including transfer to supervision to progress towards prior level of function and decrease burden of care. OT Goal #3: Tolerate at least 10 minutes of standing grooming activity at sink with supervision in order to return to participation in self cares. Plan Occupational Therapy Attestation Statement: Patient unable to verbalize agreement to the plan of care and goals due to mental status or level of consciousness, but family members present to consult andagree with the plan as stated above. OT Frequency: OT Amount: 1 visit per day OT Frequency: 6 times per week OT Inpatient Duration : Until goals are met or hospital discharge Requires Inpatient OT Follow-Up: Yes OT - Next Inpatient Appointment: 06/06/22 Plan: Plan of care initiated OT Plan Comments: Patient is more awake and alert in the afternoons, and is motivated by participating in morning self cares (wash face and teeth), and by goal directed activities (walk in [place] to check the weather, etc.). Treatment interventions may include: Treatment Interventions: Therapeutic exercise, Therapeutic functional activity, Neuromuscular re-education, Self-care/home management, Cognitive skills training Billing: Time Spent with Patient Evaluations OT Eval - Mod Complexity: 25 min Therapeutic Interventions Home Management Training (min): 20 min Time Tracking Total Timed Units (min): 20 min Total Treatment Time (min): 45 min Triny Lala M.S., O.T. Ivory Caicedo M.D. - 06/04/2022 12:01 PM CDT SUBJECTIVE HISTORY OF PRESENT ILLNESS I visited with Oneyda, and I agree with Dr. Portillo's history, physical exam, and management plan. Of note, the physical exam is rather limited in this person who is a challenge to cooperate given herprevious strokes and, therefore, has been rather reluctant to allow my colleague to examine her. We discussed with the daughter who is present and heavily involved in the mother's care. It appears thatjosh has been treated for diabetes with a combination of multiple daily injections combined with SGLT2 inhibitors and metformin. Hypoglycemia has been though a recurrent theme with need for multiple corrections. She visited with our colleagues in the outpatient setting, and she comes in now without SGLT 2 inhibitor therapy and without insulin but on metformin. Diarrhea has been present on admission. OBJECTIVE PHYSICAL EXAMINATION General: She is a petite lady sleeping in no acute distress. She does have a rather lean body habitus with a BMI at 20. ASSESSMENT / PLAN #1 History of diabetes mellitus type 2 At this point, given the frequency of hypoglycemic events, her low BMI, and low body weight as well as minimal oral intake, it is appropriate to continue without any scheduled therapy and just observe her on a correction scale of insulin. We should have a very light correction that will be utilized at breakfast and dinner. The patient is using a glucose sensor, and given her challenges understanding the multiple aspects of care, I think it is appropriate to follow on that sensor rather than add fingersticks for capillary testing. Those will be only utilized if her glucose values are extremes and are concerning about need for intervention. We will continue to follow and discuss if additional scheduled insulin should be part of her regimen. Further details per Dr. Portillo. BILLING LEVEL: N4. Ivory Caicedo M.D. CT CT Job ID: [id number] Neelam Portillo M.D., Ph.D. - 06/04/2022 8:21 AM CDTAssociated Order(s): Diabetes consult (hospital) SUBJECTIVE Diabetes consult (hospital) Referring Provider: Isaura Aguilar APRN, C.N.P., NatashaNNatP. CHIEF COMPLAINT Patient seen today for management of diabetes. The patient is admitted on 06/03/2022 for failure to thrive, diarrhea, and dehydration. HISTORY OF PRESENT ILLNESS In brief, she was recently hospitalized on 05/13/2022 - 05/15/2022 for endometritis and received IV vancomycin and cefepime with transition to levofloxacin (last dose 05/28/2022). Approximately 1 week after hospital discharge, she started having nausea and vomiting. Five days ago, she developed waterydiarrhea associated with urinary and bowel incontinence. She was admitted yesterday as a direct admission to Hospital Internal Medicine over concern for C difficile and MICKEY given recent antibiotic therapy and elevated creatinine. Additionally, she has had poor oral intake for the last 2 weeks per report. DIABETES HISTORY She was diagnosed with T2DM approximately 2 years ago and was prescribed metformin. Per daughter's history, there was some question as to whether this was type 1 or type 2 diabetes given a low C-peptide measurement, however, these records are not available for our review. 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 She had 2 strokes in 2020 resulting in cognitive impairment and decreased functional status. She hadan episode severe hyperglycemia in early 2021 and was placed on Lantus and NovoLog. Unfortunately, after this point, she had several hospitalizations for hypoglycemia. Until recently, she was maintained on metformin, Jardiance, Lantus, and NovoLog. Her daughter describes many episodes of waking up to any hypoglycemia alarm between 1 and 2 in the morning and trying to rescue glucagon. Her daughter discontinued insulin recently in the context of her poor oral intake and continued hypoglycemia which resulted in the resolution of these evening hypoglycemia alarms. She met with Dr. Nair recently for review of her diabetes and he recommended continuing to hold her previous insulin regimen and to replace it with a mendoza pen allowing for 0.5 units of NovoLog that would be dosed only blood glucose was over 250 for more than 4 hours. He also recommended discontinuing Jardiance given her recurrent UTIs. In his note he also recommended holding metformin in the context of her poor oral intake, however, per patient's daughter, she continued metformin with her last dose on . She has not taken any insulin recently and was not able to get the prescribed pen due to insurance coverage. PREADMISSION THERAPY For type 2 diabetes, she takes metformin 1000 mg daily Humalog mendoza pen prescribed which gives 0.5 units with instruction to use 0.5 -1 if glucose remained 250 greater than 4 hours. She was not able to spanish moss picker this pen due to insurance coverage and has not used it. Last dose: Metformin 06/02 No insulin has been given recently. DIABETES COMPLICATIONS Diabetic nephropathy - Stage 3 30-59% - based on GFR 31% Cerebrovascular disease. 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 Recently patient has been eating only a few crackers. WEIGHT: Patient has lost weight. Daughter estimates 6 lbs SCREENING: Did not assess. ACTIVITY: Prior to recent illness, she was participating in stroke rehab. Currently very limited activity/exercise. GLUCOSE MONITORING: The patient monitors blood glucose at home continuous. Results of home glucose monitoring per patient report: 59% of readings within 70-180 target, 39% above and 2% below (results as of 05/23/22). HYPOGLYCEMIA: Patient experiences hypoglycemia when taking insulin. This has resulted in hospitalizations. She hashad episodes of hypoglycemia that she is unable to report due to AMS. 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 FAMILY HISTORY: No family history of diabetes or thyroid disease. HOSPITAL COURSE: Past 24 hour blood glucose readings: Recent Labs 06/04/22 0635 GLUCOSEPOC 134 Results via continuous glucose monitor: 06/03/2022: 19:35 82 06/03/2022: 22:30 120 06/04/2022: 7:39 103 She has not received any insulin this hospitalization. Steroids: Prednisone 5 mg daily Current Diet Adult Diet Regular starting at 06/03 1855 REVIEW OF SYSTEMS Pertinent items are noted in HPI PREADMISSION MEDICATION: Diabetes medication(s) were reconciled on 06/04/2022 OBJECTIVE VITALS Temperature: 36.5 ??C Heart Rate: 83 Resp Rate: 15 Blood Pressure: 127/66 BP Location: Left arm SpO2: 98 % BMI (Calculated): 20 kg/m?? Height: 149.9 cm Weight: 45 kg Body mass index is 20.04 kg/m??. PHYSICAL EXAMINATION Performed at 12:30 PM after rounds by request due to patient sleeping/delirium Constitutional General: She is not in acute distress. Appearance: She is ill-appearing. She is not toxic-appearing or diaphoretic. HENT Head: Normocephalic. Eyes Comments: Right eye deviated inward Cardiovascular Rate and Rhythm: Normal rate and regular rhythm. Comments: Systolic murmur Pulmonary Effort: Pulmonary effort is normal. Musculoskeletal Right lower leg: No edema. Left lower leg: No edema. Skin General: Skin is warm and dry. Neurological Mental Status: She is alert. Comments: Right sided facial droop and eyelid droop DIAGNOSTICS I have reviewed relevant diagnostics and labs. Lab Results Component Value Date HGBA1C 8.8 (H) 05/14/2022 CrCl cannot be calculated (Patient's most recent lab result is older than the maximum 7 days allowed.). Lab Results Component Value Date CREATININE 1.84 (H) 05/23/2022 ASSESSMENT / PLAN # Type 2 Diabetes Mellitus, Uncontrolled with HbA1C 8.8 # Type 2 Diabetes Mellitus with episodes of hyperglycemia # Type 2 Diabetes Mellitus with episodes of hypoglycemia # Panhypopituitarism # Chronic steroid use # Cognitive Impairment # CKD stage 3 # Hypertension # Chronic endometritis # Recurrent UTIs Mrs. Guerrero is hospitalized for management of dehydration, diarrhea, and failure to thrive in the context of hospitalizations for endometritis and recurrent UTIs. Workup by the primary team and initial laboratory evaluation is still pending at this time. 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 Per report, Ms. Guerrero has an approximately 2 year history of type 2 diabetes mellitus with prior treatments of metformin, Jardiance, and insulin. She has had a hospitalization for hy perglycemia as well as several more recent hospitalizations for hypoglycemia. She has not been taking any insulin recently due to poor oral intake and has only been using her metformin for diabetes control. Her blood sugars have remained stable by continuous glucose monitor and she has not been significantly hyperglycemic or hypoglycemic. Blood glucose on arrival was 134. On review of records, there is some question of insulin sensitivity. At her most recent visit with endocrinology, she was recommended to discontinue her subcutaneous insulin regime and replace with Humalog mendoza in order to correct only if hyperglycemia above 250 was achieved for greater than 4 hours. The correction scale that was recommended was 0.5-1 units. Accordingly, we will proceed with a modified correction scale for her insulin and reassess as her hospitalization progresses. We will set a goal less than 200 for her glucose at this time as this will be most protective from a glucosuria standpoint. In terms of glucose monitoring, this was discussed at length with the patient's daughter who wants to avoid frequent point of care glucose checks given the patient's current mental status. She understands the risks of using the home glucose monitor and that readings may differ from the actual blood glucose. The agreement that we came to using shared decision-making was to proceed with point of care glucose if the blood glucose exceeds 160 on her continuous monitor, falls below 90 on her continuous monitor, or if the patient has any symptoms / at nurses discretion. INPATIENT PLAN: - Blood glucose monitoring: Patient is wearing a sensor, reviewed sensors are not FDA approved for use in the hospital and patient will still require blood glucose checks with our hospital meter, patient is in agreement. The patient's sensor results will be recorded by nursing on the room whiteboard. If glucose readings are over 160 or under 90, the patient will require a confirmatory POC glucose test in hospital to confirm. - Glucose goal: 140-200 mg/dL - Basal: No basal insulin. - Mealtime: Will continue to assess if mealtime insulin is needed. - Correction scale: NovoLog individualized correction scale 200-240 give 1 unit, 241-280 give 2 units, 281-320 give 3 units, 321-360 give 4 units, 361-400 give 5 units. - DCS will evaluate and adjust insulin doses as indicated to achieve glycemic goal. - Consults: None - Hold oral diabetes medications ANTICIPATED DISMISSAL PLAN: Will continue to assess. Blood glucose frequency: continuous with CGM Goal: 140-200 Please page DCS within 24 hours prior to hospital dismissal for final dismissal recommendations. Discussed above plan with the patient's family. Patient is confused. Thank you for the consult. DCS pager [phone] will follow. Call primary service for diabetes concerns between [phone]. Primary service to contact DCS via hospital tugger operator for questions. documented in this encounter Nursing Notes Iris Cortes R.N. - 06/08/2022 1:17 PM CDT Shift Goals: Clinical Goals for the Shift: Pt will be discharged today Identify possible barriers to meeting goals/advancing plan of care: none Problem: SAFETY ADULT Goal: Maintain a safe environment Outcome: Adequate for Discharge Problem: SAFETY ADULT - RISK FOR FALL AND OR FALL INJURY Goal: Patient remains free from fall/fall injury Outcome: Adequate for Discharge Problem: PAIN - ADULT Goal: PT VERBALIZES/DEMONSTRATES ADEQUATE COMFORT LEVEL OR BASELINE Outcome: Adequate for Discharge Problem: KNOWLEDGE DEFICIT Goal: Patient/family/caregiver demonstrates understanding of disease process, treatment plan, medications, and discharge instructions Outcome: Adequate for Discharge Problem: INFECTION - ADULT Goal: Absence of infection during hospitalization Outcome: Adequate for Discharge Problem: SKIN/TISSUE INTEGRITY Goal: Skin/Tissue integrity maintained or improved Outcome: Adequate for Discharge Goal: Oral and Nasal mucous membranes remain intact Outcome: Adequate for Discharge Problem: DISCHARGE PLANNING Goal: Patient discharge needs identified Outcome: Adequate for Discharge Problem: POTENTIAL OR ACTUAL PRESSURE INJURY-ADULT Goal: Manage sensory Perception deficits to maintain and/or improve skin integrity Outcome: Adequate for Discharge Goal: Maintain optimal skin moisture to ensure or improve skin integrity Outcome: Adequate for Discharge Goal: Achieve optimal activity and/or mobility to maintain or improve skin integrity Outcome: Adequate for Discharge Goal: Nutrient intake appropriate for improving, restoring or maintaining skin integrity Outcome: Adequate for Discharge Goal: Minimize friction and/or shear to maintain or improve skin integrity Outcome: Adequate for Discharge Problem: Compromised Skin Integrity Goal: Skin/Tissue integrity maintained or improved Outcome: Adequate for Discharge Goal: Oral and Nasal mucous membranes remain intact Outcome: Adequate for Discharge Goal: Incisions, wounds, or drain sites healing without S/S of infection Outcome: Adequate for Discharge Problem: Incontinence and/or Moisture Goal: Skin integrity is maintained or improved Outcome: Adequate for Discharge Problem: GASTROINTESTINAL - ADULT Goal: Optimize bowel function Outcome: Adequate for Discharge Goal: Nutrient intake appropriate for improving, restoring or maintaining nutritional needs Outcome: Adequate for Discharge Problem: MUSCULOSKELETAL - ADULT Goal: Return mobility to safest level of function Outcome: Adequate for Discharge End of Shift Summary: Vitals: 06/08/22 1313 BP: 146/78 Pulse: 77 Resp: 16 Temp: 36.5 ??C SpO2: 98% Pt was discharged to [facility] with her daughter. Reconnect with [facility] services has been completed and they have called her to set up their first home visit which is scheduled for tomorrow. AVS has been reviewed and questions have been answered to pt satisfaction. Pt will travel home with her daughter via private vehicle. Reji Myers R.N. - 06/08/2022 7:34 AM CDT Shift Goals: Clinical Goals for the Shift: Safety Identify possible barriers to meeting goals/advancing plan of care: None End of Shift Summary:Pt refused some meds on shift. Pt slept throughout this shift. Pure-wick in place and draining. Call light within reach. Pt turn and repo independently. Bed alarm on for safety. Ptis not awake to take am meds. Daughter rooming in. VSS. Possible discharge am Problem: SAFETY ADULT Goal: Maintain a safe environment Outcome: Progressing Problem: PAIN - ADULT Goal: PT VERBALIZES/DEMONSTRATES ADEQUATE COMFORT LEVEL OR BASELINE Outcome: Progressing Problem: SKIN/TISSUE INTEGRITY Goal: Skin/Tissue integrity maintained or improved Outcome: Progressing Hill Elizondo R.N. - 06/07/2022 4:25 PM CDT Problem: SAFETY ADULT - RISK FOR FALL AND OR FALL INJURY Goal: Patient remains free from fall/fall injury Outcome: Progressing Note: Pt was free of falls and injuries this shift. Bed alarm on and family in room. Problem: PAIN - ADULT Goal: PT VERBALIZES/DEMONSTRATES ADEQUATE COMFORT LEVEL OR BASELINE Outcome: Progressing Note: Pt stated some pain that was managed with repositioning and removing the IV. Shift Goals: Clinical Goals for the Shift: Safety Identify possible barriers to meeting goals/advancing plan of care: Cognition End of Shift Summary: Pt stated some pain that was managed with repositioning and removing the IV. Pt was free of falls and injuries this shift. Bed alarm on and family in room. Pt was up x1 with a walker and GB. Pt has refused all oral medications today and has been sleeping on and off. Pts blood sugar has been in the high 100s and the mid 200s. Insulin used twice . Pt has a purewick in place. Hopefully going to d/c home with daughter tomorrow where they have [facility]. Pt is Behavioral and ignores staffwhen they try to talk to her. VSS Lizy Ryan R.N. - 06/07/2022 4:20 AM CDT Problem: SAFETY ADULT Goal: Maintain a safe environment Outcome: Progressing Problem: PAIN - ADULT Goal: PT VERBALIZES/DEMONSTRATES ADEQUATE COMFORT LEVEL OR BASELINE Outcome: Progressing Note: Pt reported no pain throughout shift. Slept well after bedtime medications given. Problem: GASTROINTESTINAL - ADULT Goal: Nutrient intake appropriate for improving, restoring or maintaining nutritional needs Outcome: Progressing Note: Pt ate 100% of her dinner. No complaints of nausea. Shift Goals: Clinical Goals for the Shift: VSS and rest Identify possible barriers to meeting goals/advancing plan of care: None End of Shift Summary: VSS. RA. Pt returned to unit from CT scan at 2014. Pt refused capillary blood sugars at bedtime and 0200. Pt has Shama glucose monitoring device used instead, Sx notified about refusal and ok with use of Shama for monitoring overnight. Blood sugar was 111 at bedtime and 162 at 0200 per device. Purewick placed for incontinence. ENCET Oralia Bains R.N. - 06/06/2022 7:38 PM CDT Shift Goals: Clinical Goals for the Shift: Increase mobility Identify possible barriers to meeting goals/advancing plan of care: Possible stroke Problem: SAFETY ADULT Goal: Maintain a safe environment Outcome: Progressing Note: Pt free from falls and/or injury for duration of shift. Problem: PAIN - ADULT Goal: PT VERBALIZES/DEMONSTRATES ADEQUATE COMFORT LEVEL OR BASELINE Outcome: Progressing Note: No pain reported for duration of shift. End of Shift Summary: VSS. Room air. No BM during shift. Brief on per family request for incontinence. Pt refused morning medications until 1:30-2pm today. Would only take medications with meals. Refused many cares/assessments. Refused AM labs. Was very drowsy. Refused PT, Saw OT and tolerated exercise poorly per OT. Tolerating oral intake. Glucose range from 360s-170s during shift. Service was in room around 1830 and noticed stroke like symptoms/new facial drooping. STEAMER BLOCKER called. See STEAMER BLOCKER note for more info. Oralia Bains RLennie. - 06/06/2022 7:34 PM CDT STEAMER BLOCKER was activated/reason for call: Possible Stroke, facial drooping Primary service was informed of STEAMER BLOCKER activation. STEAMER BLOCKER and primary service at bedside to evaluate patient condition. Plan for ongoing management of patient's condition includes: CT scan, labs, neuro consult Criteria for reactivating STEAMER BLOCKER include: Further stroke s/s Stephanie Terrazas RNatN. - 06/06/2022 2:52 AM CDT Problem: SAFETY ADULT Goal: Maintain a safe environment Outcome: Not Progressing Shift Goals: Clinical Goals for the Shift: sleep Identify possible barriers to meeting goals/advancing plan of care: compliance, nutrition End of Shift Summary: alert, patient needing a lot of encouragement for medications and cares. Needing full ADL assistance, daughter in room assisting patient. Family expressed concern about diet, wanting family to count carbs but not restrict due to patients weight loss. Passed message on to med team. Patient had nausea after eating relieved by prn medication. VSS. Denies any pain. Overnight o2 monitor on patient. Stephanie Osman R.N. - 06/05/2022 3:49 PM CDT Problem: SAFETY ADULT Goal: Maintain a safe environment Outcome: Progressing Note: Patient remained safe. Call light appropriate. Problem: PAIN - ADULT Goal: PT VERBALIZES/DEMONSTRATES ADEQUATE COMFORT LEVEL OR BASELINE Outcome: Progressing Note: Patient denied pain throughout the shift. Shift Goals: Clinical Goals for the Shift: sleep Identify possible barriers to meeting goals/advancing plan of care: None End of Shift Summary: VSS. Patient was up with OT/PT today. Patient took her meds late today. This RN offered multiple times to give the patient her medications on time, however the patient refused to take her medications until later in the day. Stephanie Terrazas R.N. - 06/05/2022 3:19 AM CDT Problem: SAFETY ADULT Goal: Maintain a safe environment Outcome: Not Progressing Shift Goals: Clinical Goals for the Shift: sleep Identify possible barriers to meeting goals/advancing plan of care: compliance with care End of Shift Summary: AO to self and situation, patient refused day meds. HS labs, providers notified changed lab times to morning. BS at [phone], BS monitor went off at 0120 for elevated levels bs onpatients monitor and facility monitor 350 providers notified. Took off fecal bag since patient is nolonger having loose stools. VSS. Alejandrina Angeles R.N., C.M.SNatRNatN. - 06/04/2022 5:25 AM CDT Problem: SAFETY ADULT Goal: Maintain a safe environment Outcome: Progressing Problem: POTENTIAL OR ACTUAL PRESSURE INJURY-ADULT Goal: Nutrient intake appropriate for improving, restoring or maintaining skin integrity Outcome: Not Progressing Problem: GASTROINTESTINAL - ADULT Goal: Optimize bowel function Outcome: Not Progressing Goal: Nutrient intake appropriate for improving, restoring or maintaining nutritional needs Outcome: Not Progressing Shift Goals: manage diarrhea, get PICC placed Identify possible barriers to meeting goals/advancing plan of care: End of Shift Summary: Patient speaks Tagalog, but does understand and speak minimal Djiboutian. VSS. Nocomplaints of pain. Patient has an external rectal bag on, but patient has had only a little bit of stool in her brief overnight. She has slept most of the night with daughter in the room. documented in this encounter Miscellaneous Notes Hospital Course - Lacy Vail P.A.-C., M.S. - 06/03/2022 5:19 PM CDT Mrs. Oneyda Guerrero is a 61 y.o. female who was referred by Dr. Martinez for direct admission to [facility] from [facility] for evaluation of failure to thrive, diarrheaand dehydration. Mrs. Guerrero had recently completed a two-week course of levofloxacin for endometritis management. Dr. Martinez questions if she has c. Difficile infection and MICKEY related to her diarrhea and decreased oral intake. Other than diarrhea, no signs/symptoms of an active infection. She had MRIgynecologic pelvis with and without contrast on 05/23/2022 which showed resolution of previously noted dilatation of endometrial cavity, no concern for infection at that time. Note that her creatinine was 1.84 on 05/23/2022 and prior creatinine on 05/13/2022 was 1.14 (baseline creatinine 0.66-0.85). 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 Upon admission, routine labs were obtained and notable for improvement in her previous MICKEY (Cr 1.22 down from 1.8), mildly depleted sodium at 134, magnesium of 1.3 (repleted with 4 g magnesium sulfate). C. Difficile test was obtained and found to be negative. She was administered IV fluids for gentle hydration and provided antiemetics for symptom management. Fortunately, the patient had no further episodes of diarrhea since 06/04/22. Her blood cultures have remained negative, and her urinalysis was negative for infection. During her hospitalization, her mentation continued to wax and wane, thought to be multifactorial inthe setting of recent infection, failure to thrive, hypoactive delirium play coupled with exacerbation of her previous cognitive deficits from her previous strokes. She also continued to refuse nursingcares, labs, PT/OT, and medication, with use of multiple bartering/compromising tactics. Metabolic workup essentially negative. Syphilis negative. She did have mild subclinical hyperthyroidism noted onadmission with TSH of 0.2 with adequate T4. Unfortunately, a stroke alert was activated on 06/06/22 due to concerns of new left-sided facial droop, which was not appreciated on prior exams (however, exams had been limited). Repeat head CT and head/neck CT angiogram were negative for acute changes/new infarcts, which is reassuring. Neurology evaluated her and recommended outpatient follow-up as well as ongoing evaluation of stroke etiology. Previous TTE from 08/09/2021, negative for atrial septal defect, agitated saline, negative bubble study, and negative for thrombus. EF at that time was between 55-60%. She continues on Plavix and statin forsecondary prevention. Repeat blood work was also stable. Fortunately, her mentation improved by timeof discharge and was as close to her most recent baseline as possible further supporting hypoactive delirium as a significant culprit. In addition to hypoactive delirium/intermittent encephalopathy, she also experience symptoms of refeeding with magnesium as low as 1.3 and phosphorus 2.1, which were both repleted. By day of discharge her magnesium was 1.8 with phosphorus of 2.3. Would recommend close follow-up with repeat labs at herP appointment on 06/10/22. Her lactate was intermittently elevated to 2.9; however, this could havebeen the setting of refeeding. Repeat lactate came down to 1.6 after 500 cc fluid bolus given. No signs of infection, pain, or hypoperfusion noted. PT and OT were consulted for evaluation of the patient's debility. Occupational therapy recommended ongoing skilled therapy with home health as a reasonable option to obtain this. Physical therapy recommended ongoing therapy with assistance with ADLs/IDALs. Overnight pulse oximetry study was completedand was unremarkable. Prior to discharge, she was afebrile, hemodynamically stable, tolerating a general diet and had return to her functional baseline with the assistance of her daughter. Mrs. Guerrero was discharged home with the support of her daughter (primary care) in stable condition on 06/08/22. She was provided with home health care services. At the time of discharge, the patient was scheduled for a Neurology consultation appointment on 06/08, a primary care provider follow up appointment on 06/10 (with lab work), and gynecology follow up appointment on 07/13. The patient and her daughter were also encouraged to complete the previously scheduled outpatient sleep study following discharge. documented in this encounter Plan of Treatment Upcoming Encounters Date Type Specialty Care Team Description 07/01/2022 Clinical Communication Admitting/Central Scheduling 07/04/2022 Comprehensive Visit Neurology Zelalem Nicole M.D. [address] [place] [address] 07/13/2022 Office Visit Gynecology Lizy Fabian M.D. [address] [place] [address] Scheduled Orders Name Type Priority Associated Diagnoses Order S chedule Gram Stain Microbiology Routine Routine lab col lection (next collection) for 1 Occurrences starting 2021 until 06/04/2022 Scheduled Referrals Name Type Priority Associated Diagnoses Order S chedule Non-[facility] Outpatient Referral Routine Failure To T hrive Adult Ordered: Health referral Decline Functional 2021 Status [R53.81 (ICD-10-CM)] Stroke Cerebrovascular Accident Personal History documented as of this encounter Procedures Procedure Name Priority Date/Time Associated Comments Diagnosis GLUCOSE POCT, B Routine 06/07/2022 10:06 Results for PM CDT this procedure are in the results section. GLUCOSE POCT, B Routine 06/07/2022 5:11 Results f or PM CDT this procedure are in the results section. GLUCOSE POCT, B Routine 06/07/2022 2:32 Results f or PM CDT this procedure are in the results section. PROTHROMBIN TIME Timed 06/07/2022 1:20 Results for (PT), P PM CDT this procedure are in the results section. CBC WITH Routine 06/07/2022 1:20 Results for DIFFERENTIAL, B PM CDT this procedu re are in the results section. PHOSPHORUS Routine 06/07/2022 1:20 Results for (INORGANIC), S PM CDT this procedur e are in the results section. PHOSPHORUS Routine [...] results section. GLUCOSE POCT, B Routine 06/07/2022 12:54 Results for PM CDT this procedure are in the results section. GLUCOSE POCT, B Routine 06/07/2022 10:03 Results for AM CDT this procedure are [...] procedur e are in the results section. PATIENT STATUS [...] this procedure are in the results section. ZINC, S STAT 06/06/2022 4:56 Results for PM CDT this procedure are in the results section. C-PEPTIDE, S [...] CAPACITY, S/P are in the results section. CBC WITH Routine 06/05/2022 4:17 Results for DIFFERENTIAL, B PM CDT this procedu re are in the results section. PHOSPHORUS Routine [...] this procedure are in the results section. AMMONIA Timed 06/05/2022 4:16 Results for PM CDT this procedure are in the results section. BETA-HYDROXYBUTYRATE Routine 06/05/2022 3:40 Resu lts for , S PM CDT this procedure are in the results section. PHOSPHORUS Routine 06/05/2022 3:40 Results for (INORGANIC), S PM CDT this procedur e are in the results section. GLUCOSE POCT, B Routine 06/05/2022 12:27 Results for PM CDT this procedure are [...] re URINE are in the results section. GRAM'S ST, [...] this procedure are in the results section. ECG Routine [...] procedu re are in the results section. LIPASE, S/P Routine 06/04/2022 1:40 Results for PM CDT this procedure are in the results section. COMPREHENSIVE STAT 06/04/2022 1:40 Results for METABOLIC PANEL, S/P PM CDT this pr ocedure are in the results section. BASIC METABOLIC STAT 06/04/2022 1:40 Results f or PANEL, S/P PM CDT this procedure are in the results section. BACTERIA / BHAVIN STAT 06/04/2022 1:39 Result s for CULTURE, [...] are in the results section. BACTERIA / BHAVIN Routine 06/03/2022 10:14 Resul ts for CULTURE, BLOOD PM CDT this procedur e are in the results section. C. DIFFICILE TOXIN Routine 06/03/2022 7:42 Result s for PCR, F PM CDT this procedure are in the results section. documented in this encounter Results (ABNORMAL) Glucose, POCT (06/07/2022 10:06 PM CDT) Analysis Performed At Patho logist Time [...] Address City/State/ZIP Code Phon e Number POC [facility] [address] [place] [address] [place] [address] [place] [facility] [address] (ABNORMAL) Glucose, POCT (06/07/2022 5:11 PM CDT) P athologist Signature Glucose, POCT, 256 (H) 70 - 140 06/07/2022 [facility] B mg/dL 5:25 PM CDT Specimen Anatomical Collection Method Collection Time Receive d Time (Source) Location / / Volume Laterality Blood 06/07/2022 5:11 PM 5:25 CDT PM CDT Unknown Provider LAB POCT ORDERABLES-MANUAL Performing Organization Address City/State/ZIP Code Phon e Number POC [facility] [address] [place] [address] [place] [address] [place] [facility] [address] [facility] (ABNORMAL) Glucose, POCT (06/07/2022 2:32 PM CDT) Analysis Performed At Patho logist Time Signature Glucose, POCT, 262 (H) 70 - 140 06/07/2022 [facility] B mg/dL 2:45 PM CDT Site Capillary 06/07/2022 [facility] 2:45 PM CDT Last Intake 1-2 hours 06/07/2022 [facility] 2:45 PM CDT Specimen Anatomical Collection Method Collection Time Receive d Time (Source) Location / / Volume Laterality Blood 06/07/2022 2:32 PM 2:45 CDT PM CDT Unknown Provider LAB POCT ORDERABLES-MANUAL Performing Organization Address City/[facility] Code Phon e Number [facility] [address] [place] [address] [place] [address] [place] [facility] [address] [facility] Lactate (06/07/2022 1:20 PM CDT) P athologist Signature Lactate, P 1.6 0.5 - 2.2 06/07/2022 DTL mmol/L 2:52 PM CDT Specimen Anatomical Collection Method Collection Time Receive d Time (Source) Location / / Volume Laterality Blood (Blood, 06/07/2022 1:20 PM 06/07/20 2:31 Venous) CDT PM CDT Amelia Araya APRN, C.N.P., D.N.P. LAB BLOOD NON ADD-ON Performing Organization Address City/[facility]/ZIP Code Phon e Number [facility] - [address] [place], [place] [address] [facility] [place] [address] [facility] [address] [facility] Prothrombin Time (PT) (06/07/2022 1:20 PM CDT) P athologist Signature Prothrombin 11.2 9.4 - [...] PM 06/07/20 1:50 Venous) CDT PM CDT Amelia Araya APRN, C.N.P., D.N.P. LAB BLOOD ADD-ON Performing Organization Address [facility] Phon e Number [facility] - [address] [place] [address] (ABNORMAL) Phosphorus Inorganic (06/07/2022 1:20 PM CDT) athologist Signature Phosphorus 2.2 (L) 2.5 - 4.5 06/07/2022 DTL (Inorganic), S mg/dL 2:59 PM CDT Specimen Anatomical Collection Method Collection Time Receive d Time (Source) Location / / Volume Laterality Blood (Blood, 06/07/2022 1:20 PM 06/07/20 2:31 Venous) CDT PM CDT Amelia Araya APRN, C.N.P., D.N.P. LAB BLOOD ADD-ON Performing Organization Address City/[facility] Phon e Number [facility] - [address] (ABNORMAL) Basic Metabolic Panel (06/07/2022 1:20 PM CDT) athologist Signature Potassium, S 3.6 3.6 - [...] Organization Address City/State/ZIP Code Phon e Number [facility] - [address] [place], [place] [address] [facility] [place] [address] [facility] [address] [facility] (ABNORMAL) CBC with Differential, Blood (06/07/2022 1:20 PM CDT) [facility] Method Time Signature Hemoglobin 11.5 (L) 11.6 [...] PM 06/07/20 1:50 Venous) CDT PM CDT Amelia Araya APRN, C.N.P., D.N.P. LAB BLOOD ADD-ON Performing Organization Address City/State/ZIP Code Phon e Number [facility] - [address] [place] [address] [place] [address] [facility] 200 [facility] (ABNORMAL) Phosphorus Inorganic (06/07/2022 1:20 PM CDT) athologist Signature Phosphorus 2.3 (L) 2.5 - 4.5 06/07/2022 DTL (Inorganic), S mg/dL 2:50 PM CDT Specimen Anatomical Collection Method Collection Time Receive d Time (Source) Location / / Volume Laterality Blood (Blood, 06/07/2022 1:20 PM 06/07/20 22 2:32 Venous) CDT PM CDT Katya Sauer APRN.N.P., D.N.P. LAB BLOOD ADD-ON Performing Organization Address City/[facility] Phon e Number [facility] - [address] [place], [place] [address] [place] [address] [facility] [address] [facility] Magnesium (06/07/2022 1:20 PM CDT) athologist Signature Magnesium, S 1.8 1.7 - 2.3 06/07/2022 DTL mg/dL 2:59 PM CDT Specimen Anatomical Collection Method Collection Time Receive d Time (Source) Location / / Volume Laterality Blood (Blood, 06/07/2022 1:20 PM 06/07/20 2:31 Venous) CDT PM CDT Katya Sauer APRN.N.P., D.N.P. LAB BLOOD ADD-ON Performing Organization Address City/[facility] Phon e Number [facility] - [address] [place], [place] [address] [place], [place] [id number] [place] [address] (ABNORMAL) Glucose, POCT (06/07/2022 12:54 PM CDT) athologist Signature Glucose, POCT, 179 (H) 70 - 140 06/07/2022 [facility] B mg/dL 1:02 PM CDT Specimen Anatomical Collection Method Collection Time Receive d Time (Source) Location / / Volume Laterality Blood 06/07/2022 12:54 06/07/2022 1:03 PM CDT PM CDT Unknown Provider LAB POCT ORDERABLES-MANUAL Performing Organization Address City/State/ZIP [facility] Phon e Number POC [facility] [address] [place] [address] [place] [address] [facility] [address] [facility] Glucose, POCT (06/07/2022 10:03 AM CDT) Analysis Performed At Patho logist Time Signature Glucose, POCT, 132 70 - 140 06/07/2022 [facility] B mg/dL 10:07 AM CDT Site Capillary 06/07/2022 [facility] 10:07 AM CDT Last Intake > 4 hours 06/07/2022 [facility] 10:07 AM CDT Specimen Anatomical Collection Method Collection Time Receive d Time (Source) Location / / Volume Laterality Blood 06/07/2022 10:03 06/07/2022 AM CDT 10:07 AM CDT Unknown Provider LAB POCT ORDERABLES-MANUAL Performing Organization Address City/State/ZIP Code Phon e Number POC [facility] [address] [place] [address] [facility] [place] [address] [place] [facility] [address] Head Neck Angiogram and Cerebral Perfusion with IV Contrast (06/06/2022 8:01 PM CDT) Anatomical Region Laterality Modality Head and Neck, Neuroradiology RST LOS, N/A C omputed Tomography, Computed Neuroradiology ARZ LOS, Neuroradiology T omography FLA [facility] Specimen (Source) Anatomical Collection Method [...] 4 se conds, within the right [employer] watershed territory. Procedure Note Carlos Yadav M.D., [...] 4 se conds, within the right [employer] watershed territory. IMPRESSION: 1. No acute intracranial [...] N/A Computed T omography, Computed Neuroradiology ARZ [facility], Neuroradiology T omography FLA [facility] Specimen (Source) Anatomical Collection Method [...] 4 se conds, within the right [employer] watershed territory. Procedure Note Carlos Yadav M.D., [...] 4 se conds, within the right [employer] watershed territory. IMPRESSION: 1. No acute intracranial abnormality. No evidence of acute infarct. 2. 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 3. Approximately 50% narrowing of the mi d and distal left common carotid artery and intracranial internal carotid arteries. Taylor Ivory M.D. IMG CT PROCEDURES (ABNORMAL) Glucose, POCT (06/06/2022 6:49 PM CDT) Analysis Performed At Patho logist Time Signature Glucose, POCT, 177 (H) 70 - 140 06/06/2022 [facility] B mg/dL 6:51 PM CDT Site Capillary 06/06/2022 [facility] 6:51 PM CDT Last Intake 1-2 hours 06/06/2022 [facility] 6:51 PM CDT Specimen Anatomical Collection Method Collection Time Receive d Time (Source) Location / / Volume Laterality Blood 06/06/2022 6:49 PM 2 6:51 CDT PM CDT Unknown Provider LAB POCT ORDERABLES-MANUAL Performing Organization Address City/State/ZIP Code Phon e Number [facility] [address] [place] [address] [place] [address] [place] [facility] [address] [facility] (ABNORMAL) Glucose, POCT (06/06/2022 6:00 PM CDT) Analysis Performed At Patho logist Time Signature Glucose, POCT, 266 (H) 70 - 140 06/06/2022 [facility] B mg/dL 6:03 PM CDT Site Capillary 06/06/2022 [facility] 6:03 PM CDT Last Intake 3-4 hours 06/06/2022 [facility] 6:03 PM CDT Specimen Anatomical Collection Method Collection Time Receive d Time (Source) Location / / Volume Laterality Blood 06/06/2022 6:00 PM 2 6:03 CDT PM CDT Unknown Provider LAB POCT ORDERABLES-MANUAL Performing Organization Address City/[facility]/ZIP Code Phon e Number [facility] [address] [place] [address] [place] [address] [place] [facility] 200 [facility] Patient Status (06/06/2022 4:57 PM CDT) P athologist Signature O2 Flow 0.2 L/min 06/06/2022 STMA 5:08 PM CDT Spont. 24 06/06/2022 STMA breaths/min 5:08 PM CDT Specimen Anatomical Collection Method Collection Time Receive d Time (Source) Location / / Volume Laterality Blood 06/06/2022 4:57 PM 2 5:08 CDT PM CDT Amelia Araya APRN, C.N.P., D.N.P. LAB BLOOD NON ADD-ON Performing Organization Address City/State/ZIP Code Phon e Number [facility] - [facility] [address] [place], [place] [address] [place] [address] [facility] 200 [facility] (ABNORMAL) Blood Gas with Coox, Venous (06/06/2022 4:57 PM CDT) [facility] Method Time Signature Venous pO2 32 Not [...] 5:10 PM CDT Venous Sample Venipunct 06/06/2022 STMA Site 5:10 PM CDT Specimen Anatomical Collection Method Collection Time Receive d Time (Source) Location / / Volume Laterality Blood (Blood, 06/06/2022 4:57 PM 06/06/20 5:08 Venous) CDT PM CDT Amelia Araya APRN, C.N.P., D.N.P. LAB BLOOD NON ADD-ON Performing Organization Address City/State/ZIP Code Phon e Number [facility] - [address] [place] [address] [place] [address] [facility] 200 [facility] Syphilis IgG w/ Reflex, EIA, S (06/06/2022 4:57 PM CDT) [facility] Method Time Signature Syphilis IgG Nonreactive Nonreactive 06/07/2022 SDSC w/ Reflex, 1:37 PM CDT EIA, S Comment: No serologic evidence of infection with T. pallidum (syphilis). ??Repeat testing may be cons idered in patients with suspected acute or primary syphilis in 2-4 weeks. For additional information on interpreta tion of the syphilis reverse algorithm and resul ts, see: [email or web address] Specimen Anatomical Collection Method Collection Time Receive d Time (Source) Location / / Volume Laterality Blood (Blood, 06/06/2022 4:57 PM 06/06/20 8:02 Venous) CDT PM CDT Amelia Araya APRN, C.N.P., D.N.P. LAB MICROB IOLOGY - BLOOD ORDERABLES Performing Organization Address [facility] Phon e Number [address] [place] [address] [place] (ABNORMAL) Zinc (06/06/2022 4:56 PM CDT) athologist Signature Zinc, S 49 (L) 60 - 106 06/08/2022 [facility] mcg/dL 8:12 PM CDT Comment: ----ADDITIONAL INFORMATION---- This test was developed and its performa nce characteristics determined by [facility] in a manner consistent with CLIA requirements. This test has not been cleared or approved by the [place] and Drug Administration. Specimen Anatomical Collection Method Collection Time Receive d Time (Source) Location / / Volume Laterality Blood (Blood, 06/06/2022 4:56 PM 06/06/20 8:10 Venous) CDT PM CDT Amelia Araya APRN, C.N.P., D.N.P. LAB BLOOD NON ADD-ON Performing Organization Address [facility] Phon e Number [address] [place] [address] [place] Copper (06/06/2022 4:56 PM CDT) athologist Signature Copper, S 96 77 - 206 06/08/2022 8:12 [facility] mcg/dL PM CDT Comment: ----ADDITIONAL INFORMATION---- This test was developed and its performa nce characteristics determined by [facility] in a manner consistent with CLIA requirements. This test has not been cleared or approved by the [place] and Drug Administration. Specimen Anatomical Collection Method Collection Time Receive d Time (Source) Location / / Volume Laterality Blood (Blood, 06/06/2022 4:56 PM 06/06/20 8:10 Venous) CDT PM CDT Amelia Araya APRN, Katya.N.P., D.N.P. LAB BLOOD NON ADD-ON Performing Organization Address City/[facility] Code Phon e Number [place] [id number] [place], [place] [address] [place], [place] [id number] [place] [address] Dr. [place] (ABNORMAL) Magnesium (06/06/2022 4:56 PM CDT) P athologist Signature Magnesium, S 1.5 (L) 1.7 - 2.3 06/06/2022 DTL mg/dL 6:03 PM CDT Specimen Anatomical Collection Method Collection Time Receive d Time (Source) Location / / Volume Laterality Blood (Blood, 06/06/2022 4:56 PM 06/06/20 22 5:33 Venous) CDT PM CDT Amelia Araya APRN, Katya.N.P., D.N.P. LAB BLOOD ADD-ON Performing Organization Address City/[facility] Code Phon e Number [facility] - [address] [place], [place] [address] [place] [address] [facility] [address] [facility] (ABNORMAL) Lactate (06/06/2022 4:56 PM CDT) P athologist Signature Lactate, P 2.9 (H) 0.5 - 2.2 06/06/2022 DTL mmol/L 5:54 PM CDT Specimen Anatomical Collection Method Collection Time Receive d Time (Source) Location / / Volume Laterality Blood (Blood, 06/06/2022 4:56 PM 06/06/20 22 5:33 Venous) CDT PM CDT Amelia Araya APRN C.N.P., D.N.P. LAB BLOOD NON ADD-ON Performing Organization Address City/State/ZIP Code Phon e Number [facility] - [address] [place], [place] [address] [facility] [place] [address] [facility] [address] (ABNORMAL) Renal Function Panel [...] Laterality Blood (Blood, 06/06/2022 4:56 PM 06/06/20 22 5:33 Venous) CDT PM CDT Amelia Araya APRN, C.N.P., Shira.N.P. LAB BLOOD ADD-ON Performing Organization Address City/State/ZIP Code Phon e Number [facility] - 200 [place], [place] [address] [facility] [place] [address] [facility] 200 [facility] (ABNORMAL) CBC with Differential, Blood (06/06/2022 4:56 PM CDT) [facility] Method Time Signature Hemoglobin 10.4 (L) 11.6 - 06/06/2022 DTL 15.0 g/dL 5:28 PM CDT Hematocrit 32.6 (L) 35.5 - 06/06/2022 DTL 44.9 % 5:28 PM CDT Erythrocytes 3.45 (L) 3.92 - 06/06/2022 DTL 5.13 5:28 PM CDT x10(12)/L MCV 94.5 78.2 - 06/06/2022 DTL 97.9 fL 5:28 PM CDT RBC Distrib Width 12.8 12.2 - 06/06/2022 DTL 16.1 % 5:28 PM CDT Platelet Count 145 (L) 157 - 371 06/06/2022 DTL x10(9)/L 5:28 PM CDT Leukocytes 7.3 3.4 - 9.6 06/06/2022 DTL x10(9)/L 5:28 PM CDT Neutrophils 5.33 1.56 - 06/06/2022 DTL 6.45 5:28 PM CDT x10(9)/L Lymphocytes 1.30 0.95 - 06/06/2022 DTL 3.07 5:28 PM CDT x10(9)/L Monocytes 0.40 0.26 - 06/06/2022 DTL 0.81 5:28 PM CDT x10(9)/L Eosinophils 0.24 0.03 - 06/06/2022 DTL 0.48 5:28 PM CDT x10(9)/L Basophils <0.03 0.01 - 06/06/2022 DTL 0.08 5:28 PM CDT x10(9)/L Specimen Anatomical Collection Method Collection Time Receive d Time (Source) Location / / Volume Laterality Blood (Blood, 06/06/2022 4:56 PM 06/06/20 22 5:19 Venous) CDT PM CDT Amelia Araya APRN C.N.P., D.N.P. LAB BLOOD ADD-ON Performing Organization Address City/State/ZIP Code Phon e Number [facility] - 200 [place], [place] [address] [facility] [place] [address] Laboratories[address] C-Peptide (06/06/2022 4:56 PM CDT) P athologist Signature C-Peptide, S 1.2 1.1 - 4.4 06/06/2022 DTL ng/mL 6:03 PM CDT Specimen Anatomical Collection Method Collection Time Receive d Time (Source) Location / / Volume Laterality Blood (Blood, 06/06/2022 4:56 PM 06/06/20 22 5:33 Venous) CDT PM CDT Neelam Portillo M.D., Ph.D. LAB BLOOD ADD-ON Performing Organization Address City/[facility]/ZIP Code Phon e Number [facility] - 200 [place], [place] [address] [place] [address] [address] (ABNORMAL) Glucose, POCT (06/06/2022 4:31 PM CDT) Analysis Performed At Patho logist Time Signature Glucose, POCT, 342 (H) 70 - 140 06/06/2022 [facility]CL[facility] B mg/dL 4:33 PM CDT Site Capillary 06/06/2022 PCLX 4:33 PM CDT Last Intake 1-2 hours 06/06/2022 [facility] 4:33 PM CDT Specimen Anatomical Collection Method Collection Time Receive d Time (Source) Location / / Volume Laterality Blood 06/06/2022 4:31 PM 4:33 CDT PM CDT Unknown Provider LAB POCT ORDERABLES-MANUAL Performing Organization Address City/State/ZIP Code Phon e Number POC [facility] [address] [place] [address] [place] [address] [place] [facility] [address] [facility] (ABNORMAL) Glucose, POCT (06/06/2022 1:09 PM CDT) P athologist Signature Glucose, POCT, 180 (H) 70 - 140 06/06/2022 [facility] B mg/dL 1:13 PM CDT Specimen Anatomical Collection Method Collection Time Receive d Time (Source) Location / / Volume Laterality Blood 06/06/2022 1:09 PM 2 1:13 CDT PM CDT Unknown Provider LAB POCT ORDERABLES-MANUAL Performing Organization Address City/State/ZIP Code Phon e Number POC [facility] [address] [place] [address] [place] [address] [place] [facility] 200 [facility] (ABNORMAL) Glucose, POCT (06/06/2022 9:10 AM CDT) Analysis Performed At Patho logist Time Signature Glucose, POCT, 235 (H) 70 - 140 06/06/2022 [facility] B mg/dL 9:15 AM CDT Site Capillary 06/06/2022 [facility] 9:15 AM CDT Last Intake > 4 hours 06/06/2022 [facility] 9:15 AM CDT Specimen Anatomical Collection Method Collection Time Receive d Time (Source) Location / / Volume Laterality Blood 06/06/2022 9:10 AM 2 9:15 CDT AM CDT Unknown Provider LAB POCT ORDERABLES-MANUAL Performing Organization Address City/State/[facility] Phon e Number POC [facility] [address] [place] [address] [place] [address] [place] [facility] [address] RT Pulse Oximetry, Overnight (06/06/2022 7:21 AM CDT) Specimen (Source) Anatomical Location Collection Method / Collectio n Time Received Time / Laterality Volume 06/05/2022 Impressions [place] SONAM EAP - 06/07/2022 7:47 AM CD T [...] ??Normal study. Physician: Toni Morrow M.D. [id number] Narrative This result has an attachment that [...] Normal study. Physician: Toni Morrow M.D. [id number] Amelia Araya APRN, C.N.P., D.N.P. SLEEP CENT ER ORDERABLES Performing Organization Address City/State/ZIP Code Phon e Number [place] NVISION EAP (ABNORMAL) Glucose, POCT (06/05/2022 7:29 PM CDT) Analysis Performed At [facility] Signature Glucose, POCT, 257 (H) 70 - 140 06/05/2022 [facility] B mg/dL 7:36 PM CDT Last Intake 1-2 hours 06/05/2022 [facility] 7:36 PM CDT Specimen Anatomical Collection Method Collection Time Receive d Time (Source) Location / / Volume Laterality Blood 06/05/2022 7:29 PM 7:37 CDT PM CDT Unknown Provider LAB POCT ORDERABLES-MANUAL Performing Organization Address City/State/ZIP Code Phon e Number POC [facility] [address] [place] [address] PCLX [facility] [place] [address] [place] [facility] [address] (ABNORMAL) Glucose, POCT (06/05/2022 4:26 PM CDT) Analysis Performed At [facility] Signature Glucose, POCT, 366 (H) 70 - 140 06/05/2022 [facility] B mg/dL 4:35 PM CDT Site Capillary 06/05/2022 [facility] 4:35 PM CDT Last Intake 3-4 hours 06/05/2022 [facility] 4:35 PM CDT Specimen Anatomical Collection Method Collection Time Receive d Time (Source) Location / / Volume Laterality Blood 06/05/2022 4:26 PM 4:35 CDT PM CDT Unknown Provider LAB POCT ORDERABLES-MANUAL Performing Organization Address City/[facility] Code Phon e Number POC [facility] [address] [place] [address] [place] [address] [facility] [address] Cortisol (06/05/2022 4:18 PM CDT) P athologist Signature Cortisol PM 5.1 2 - 14 06/05/2022 DTL Result mcg/dL 5:43 PM CDT Specimen Anatomical Collection Method Collection Time Receive d Time (Source) Location / / Volume Laterality Blood (Blood, 06/05/2022 4:18 PM 06/05/20 4:32 Venous) CDT PM CDT Amelia Araya APRN, C.N.P., D.N.P. LAB BLOOD ADD-ON Performing Organization Address City/[facility]/ZIP Code Phon e Number [facility] - [address] [place], [place] [address] [facility] [place] [address] [facility] [address] Lactate (06/05/2022 4:17 PM CDT) P athologist Signature Lactate, P 1.9 0.5 - 2.2 06/05/2022 DTL mmol/L 5:02 PM CDT Specimen Anatomical Collection Method Collection Time Receive d Time (Source) Location / / Volume Laterality Blood (Blood, 06/05/2022 4:17 PM 06/05/20 4:50 Venous) CDT PM CDT Taylor Ivory M.D. LAB BLOOD NON ADD-ON Performing Organization Address City/State/ZIP Code Phon e Number [facility] - [address] [place], [place] [address] [facility] [place] [address] [facility] [address] (ABNORMAL) Iron and Total Iron-Binding Capacity (06/05/2022 4:17 PM CDT) athologist Signature Iron 95 35 - 145 [...] D.N.P. LAB BLOOD ADD-ON Performing Organization Address City/[facility] Phon e Number [facility] - [address] Phosphorus Inorganic (06/05/2022 4:17 PM CDT) athologist Signature Phosphorus 2.5 2.5 - 4.5 06/05/2022 DTL (Inorganic), S mg/dL 5:15 PM CDT Specimen Anatomical Collection Method Collection Time Receive d Time (Source) Location / / Volume Laterality Blood (Blood, 06/05/2022 4:17 PM 06/05/20 4:32 Venous) CDT PM CDT Amelia Araya APRN, C.N.P., D.N.P. LAB BLOOD ADD-ON Performing Organization Address City/State/[facility] Code Phon e Number [facility] - [address] Magnesium (06/05/2022 4:17 PM CDT) athologist Signature Magnesium, S 2.0 1.7 - 2.3 06/05/2022 DTL mg/dL 5:15 PM CDT Specimen Anatomical Collection Method Collection Time Receive d Time (Source) Location / / Volume Laterality Blood (Blood, 06/05/2022 4:17 PM 06/05/20 4:32 Venous) CDT PM CDT Amelia Araya APRN, C.N.P., D.N.P. LAB BLOOD ADD-ON Performing Organization Address City/State/ZIP Code Phon e Number [facility] - [address] [place] [address] [facility] [place] [address] [facility] 200 [facility] (ABNORMAL) Basic Metabolic Panel (06/05/2022 4:17 PM CDT) P athologist Signature Potassium, S 4.1 3.6 - 5.2 06/05/2022 DTL mmol/L 5:15 PM CDT Sodium, S 136 135 - 145 06/05/2022 DTL mmol/L 5:15 PM CDT Chloride, S 100 98 - 107 06/05/2022 DTL mmol/L 5:15 PM CDT Bicarbonate, S 24 22 - 29 06/05/2022 DTL mmol/L 5:15 PM CDT Anion Gap 12 7 - 15 06/05/2022 DTL 5:15 PM CDT BUN (Blood Urea 16 6 - 21 06/05/2022 DTL Nitrogen), S mg/dL 5:15 PM CDT Creatinine 1.00 0.59 - 06/05/2022 DTL 1.04 mg/dL 5:15 PM CDT Estimated GFR 64 >=60 06/05/2022 DTL (eGFR) mL/min/BSA 5:15 PM CDT Comment: Estimated GFR calculated using the 2020 CKD_EPI creatinine equation. Calcium, Total, S 7.7 (L) 8.8 - 10.2 mg/dL 06/05/2022 5:15 PM CDT DTL Glucose, S 302 (H) 70 - 140 mg/dL 06/05/2022 5:15 PM CDT D TL Specimen Anatomical Collection Method Collection Time Receive d Time (Source) Location / / Volume Laterality Blood (Blood, 06/05/2022 4:17 PM 06/05/20 4:32 Venous) CDT PM CDT Amelia Araya APRN, C.N.P., Shira.N.P. LAB BLOOD ADD-ON Performing Organization Address City/State/ZIP Code Phon e Number [facility] - 200 [place], [place] [address] [facility] [place] [address] [facility] 200 [facility] (ABNORMAL) CBC with Differential, Blood (06/05/2022 4:17 PM CDT) [facility] gist Method Time Signature Hemoglobin 12.3 11.6 - 06/05/2022 DHPM 15.0 g/dL 4:41 PM CDT Hematocrit 37.3 35.5 - 06/05/2022 DHPM 44.9 % 4:41 PM CDT Erythrocytes 4.03 3.92 - 06/05/2022 DHPM 5.13 4:41 PM CDT x10(12)/L MCV 92.6 78.2 - 06/05/2022 DHPM 97.9 fL 4:41 PM CDT RBC Distrib Width 12.5 12.2 - 06/05/2022 DHPM 16.1 % 4:41 PM CDT Platelet Count 142 (L) 157 - 371 06/05/2022 DHPM x10(9)/L 4:41 PM CDT Leukocytes 8.4 3.4 - 9.6 06/05/2022 DHPM x10(9)/L 4:41 PM CDT Neutrophils 7.39 (H) 1.56 - 06/05/2022 DHPM 6.45 4:41 PM CDT x10(9)/L Lymphocytes 0.73 (L) 0.95 - 06/05/2022 DHPM 3.07 4:41 PM CDT x10(9)/L Monocytes 0.20 (L) 0.26 - 06/05/2022 DHPM 0.81 4:41 PM CDT x10(9)/L Eosinophils 0.08 0.03 - 06/05/2022 DHPM 0.48 4:41 PM CDT x10(9)/L Basophils <0.03 0.01 - 06/05/2022 DHPM 0.08 4:41 PM CDT x10(9)/L Specimen Anatomical Collection Method Collection Time Receive d Time (Source) Location / / Volume Laterality Blood (Blood, 06/05/2022 4:17 PM 06/05/20 4:32 Venous) CDT PM CDT Jodie Sauer APRNNCr., NatashaNNatP. LAB BLOOD ADD-ON Performing Organization Address City/[facility]/ZIP Code Phon e Number [facility] - 200 [place], [place] [address] [facility] [place] [address] [facility] 200 [facility] Ammonia (06/05/2022 4:16 PM CDT) athologist Signature Ammonia, P <10 <=30 mcmol/L 06/05/2022 DT 5:30 PM CDT Specimen Anatomical Collection Method Collection Time Receive d Time (Source) Location / / Volume Laterality Blood (Blood, 06/05/2022 4:16 PM 06/05/20 4:30 Venous) CDT PM CDT Taylor Ivory M.D. LAB BLOOD NON ADD-ON Performing Organization Address City/[facility]/ZIP Code Phon e Number [facility] - [address] [place], [place] [id number] [place] [address] 200 [facility] Patient Status (06/05/2022 4:16 PM CDT) athologist Signature FIO2 0.21 0.21=AIR 06/05/2022 STMA 4:21 PM CDT Spont. 16 06/05/2022 STMA breaths/min 4:21 PM CDT Specimen Anatomical Collection Method Collection Time Receive d Time (Source) Location / / Volume Laterality Blood 06/05/2022 4:16 PM 4:21 CDT PM CDT Taylor Ivory M.D. LAB BLOOD NON ADD-ON Performing Organization Address City/[facility]/ZIP Code Phon e Number [facility] - 200 [place] [address] [facility] STMA [address] Blood Gas without Coox, Venous (06/05/2022 4:16 PM CDT) [facility] gist Method Time Signature Venous pO2 26 [...] Laterality Blood (Blood, 06/05/2022 4:16 PM 06/05/20 4:21 Venous) CDT PM CDT Taylor Ivory M.D. LAB BLOOD NON ADD-ON Performing Organization Address City/State/ZIP Code Phon e Number [facility] - [address] [place] [address] [place] [address] [facility] 200 [facility] 25-Hydroxyvitamin D2 and D3 (06/05/2022 4:16 PM CDT) athologist Signature 25-Hydroxy D2 <4.0 ng/mL 06/07/2022 SDSC 11:48 AM CDT 25-Hydroxy D3 40 ng/mL 06/07/2022 SDSC 11:48 AM CDT 25-Hydroxy D 40 ng/mL 06/07/2022 SDSC Total 11:48 AM CDT Comment: ----REFERENCE VALUE---- 25-HYDROXY D TOTAL (D2+D3) Optimum level s in the healthy population are 20-50, patients with bone disease may benefit from higher levels within this r harrison. ----ADDITIONAL INFORMATION---- This test was developed and its performa nce characteristics determined by [facility] in a manner consistent with CLIA requirements. This test has not been cleared or approved by the [place] d and Drug Administration. Specimen Anatomical Collection Method Collection Time Receive d Time (Source) Location / / Volume Laterality Blood (Blood, 06/05/2022 4:16 PM 06/06/20 8:29 Venous) CDT AM CDT Amelia Araya APRN C.N.P., D.N.P. LAB BLOOD ADD-ON Performing Organization Address City/State/ZIP Code Phon e Number [facility] [address] [place], [place] [address] [place] [address] [facility] [address] [place] (ABNORMAL) Ferritin (06/05/2022 4:16 PM CDT) athologist [facility] Ferritin, S 363 (H) 11 - 307 06/05/2022 DTL mcg/L 5:57 PM CDT Specimen Anatomical Collection Method Collection Time Receive d Time (Source) Location / / Volume Laterality Blood (Blood, 06/05/2022 4:16 PM 06/05/20 4:50 Venous) CDT PM CDT Amelia Araya APRN, C.N.P., D.N.P. LAB BLOOD ADD-ON Performing Organization Address City/[facility]/ZIP Code Phon e Number [facility] - [id number] [place] [address] [facility] Folate (06/05/2022 4:16 PM CDT) athologist [facility] Folate, S 13.3 >=4.0 mcg/L 06/06/2022 DTL 11:00 AM CDT Specimen Anatomical Collection Method Collection Time Receive d Time (Source) Location / / Volume Laterality Blood (Blood, 06/05/2022 4:16 PM 06/05/20 4:33 Venous) CDT PM CDT Amelia Araya APRN, C.N.P., D.N.P. LAB BLOOD ADD-ON Performing Organization Address City/[facility]/ZIP Code Phon e Number [facility] - [address] Vitamin B12 Assay (06/05/2022 4:16 PM CDT) athologist [facility] Vitamin B12 [phone] 06/06/2022 DTL Assay, S ng/L 11:01 AM [...] D.N.P. LAB BLOOD ADD-ON Performing Organization Address City/[facility] Phon e Number [facility] [phone] [place] [address] Beta-Hydroxybutyrate (06/05/2022 3:40 PM CDT) P athologist Signature Beta-Hydroxybut 0.1 <0.4 mmol/L 06/07/2022 DTL yrate, S 9:25 AM CDT Specimen Anatomical Collection Method Collection Time Receive d Time (Source) Location / / Volume Laterality Blood (Blood, 06/05/2022 3:40 PM 06/07/20 8:05 Venous) CDT AM CDT Neelam Portillo M.D., Ph.D. LAB BLOOD ADD-ON Performing Organization Address City/State/[facility] Phon e Number [facility] - [address] [place], [place] [address] [place] [id number] [place] [address] Phosphorus Inorganic (06/05/2022 3:40 PM CDT) P athologist Signature Phosphorus 2.7 2.5 - 4.5 06/06/2022 DTL (Inorganic), S mg/dL 5:47 PM CDT Specimen Anatomical Collection Method Collection Time Receive d Time (Source) Location / / Volume Laterality Blood (Blood, 06/05/2022 3:40 PM 06/06/20 4:27 Venous) CDT PM CDT Jodie Sauer APRNNCr., D.N.P. LAB BLOOD ADD-ON Performing Organization Address City/State/ZIP Code Phon e Number [facility] - [address] [place], [place] [address] [facility] [place] [address] [facility] [address] (ABNORMAL) Glucose, POCT (06/05/2022 12:27 PM CDT) Analysis Performed At Patho logist Time Signature Glucose, POCT, 145 (H) 70 - 140 06/05/2022 PCLX B mg/dL 12:38 PM CDT Site Capillary 06/05/2022 PCLX 12:38 PM CDT Last Intake > 4 hours 06/05/2022 PCLX 12:38 PM CDT Specimen Anatomical Collection Method Collection Time Receive d Time (Source) Location / / Volume Laterality Blood 06/05/2022 12:27 06/05/2022 PM CDT 12:38 PM CDT Unknown Provider LAB POCT ORDERABLES-MANUAL Performing Organization Address City/[facility] Code Phon e Number POC [facility] [address] [place] [address] [place] [address] [place] [address] (ABNORMAL) Glucose, POCT (06/05/2022 9:32 AM CDT) Analysis Performed At Patho logist Time Signature Glucose, POCT, 163 (H) 70 - 140 06/05/2022 PCLX B mg/dL 9:38 AM CDT Site Capillary 06/05/2022 PCLX 9:38 AM CDT Last Intake > 4 hours 06/05/2022 PCLX 9:38 AM CDT Specimen Anatomical Collection Method Collection Time Receive d Time (Source) Location / / Volume Laterality Blood 06/05/2022 9:32 AM 9:39 CDT AM CDT Unknown Provider LAB POCT ORDERABLES-MANUAL Performing Organization Address City/State/ZIP Code Phon e Number [facility] [address] [place] [address] [place] [address] [facility] [address] [facility] (ABNORMAL) Glucose, POCT (06/05/2022 1:27 AM CDT) Analysis Performed At Patho logist Time Signature Glucose, POCT, 350 (H) 70 - 140 06/05/2022 PCLX B mg/dL 1:33 AM CDT Last Intake 2-3 hours 06/05/2022 PCLX 1:33 AM CDT Specimen Anatomical Collection Method Collection Time Receive d Time (Source) Location / / Volume Laterality Blood 06/05/2022 1:27 AM 2 1:34 CDT AM CDT Unknown Provider LAB POCT ORDERABLES-MANUAL Performing Organization Address City/[facility] Phon e Number [facility] [address] [place] [address] [place] [address] [place] [facility] 200 [facility] (ABNORMAL) Glucose, POCT (06/04/2022 5:56 PM CDT) Analysis Performed At [facility] logis Time Signature Glucose, POCT, 201 (H) 70 - 140 06/04/2022 PCLX B mg/dL 5:58 PM CDT Site Capillary 06/04/2022 PCLX 5:58 PM CDT Last Intake 3-4 hours 06/04/2022 PCLX 5:58 PM CDT Specimen Anatomical Collection Method Collection Time Receive d Time (Source) Location / / Volume Laterality Blood 06/04/2022 5:56 PM 2 5:59 CDT PM CDT Unknown Provider LAB POCT ORDERABLES-MANUAL Performing Organization Address City/[facility] Phon e Number [facility] [address] [place] [address] [place] [address] [place] [facility] 200 [facility] (ABNORMAL) Dipstick, Urine (06/04/2022 3:21 PM CDT) Patholo gist Method Time Signature Hemoglobin, QL [...] D.N.P. LAB URINE ORDERABLES Performing Organization Address City/State/ZIP Code Phon e Number [facility] - [address] [place], [place] [address] 05 [place] [address] [facility] [address] [facility] Microscopic Automated (06/04/2022 3:21 PM CDT) athologist Signature Microscopy Normal 06/04/2022 4:35 DTL PM CDT Specimen Anatomical Collection Method Collection Time Receive d Time (Source) Location / / Volume Laterality Urine 06/04/2022 3:21 PM 2 3:46 CDT PM CDT Amelia Araya APRN, C.N.P., D.N.P. LAB URINE ORDERABLES Performing Organization Address City/State/ZIP Code Phon e Number [facility] - [address] [place], [place] [address] 05 [place] [address] [facility] [address] [facility] Osmolality, Urine (06/04/2022 3:21 PM CDT) P athologist Signature Osmolality, U 705 150 - 1150 06/04/2022 DTL mOsm/kg 4:35 PM CDT Specimen Anatomical Collection Method Collection Time Receive d Time (Source) Location / / Volume Laterality Urine 06/04/2022 3:21 PM 2 3:46 CDT PM CDT Amelia Araya APRN, C.N.P., D.N.P. LAB URINE ORDERABLES Performing Organization Address City/State/ZIP Code Phon e Number [facility] - [address] [place], [place] [address] [facility] [place] [address] [place] [address] [facility] pH, Urine (06/04/2022 3:21 PM CDT) P athologist Signature pH, U 7.3 4.5 - 8.0 06/04/2022 4:35 DTL PM CDT Specimen Anatomical Collection Method Collection Time Receive d Time (Source) Location / / Volume Laterality Urine 06/04/2022 3:21 PM 2 3:46 CDT PM CDT Amelia Araya APRN, C.N.P., D.N.P. LAB URINE ORDERABLES Performing Organization Address City/[facility] Phon e Number [facility] [phone] [place] [address] Gram Stain, Urine (06/04/2022 3:21 PM CDT) [facility] [employer] Method Time Signature Source Urine, 06/04/2022 DTL Urine, 3:46 PM CDT Straight Catheter Gram Stain, U Negative Negative 06/04/2022 DTL 4:31 PM CDT Specimen Anatomical Collection Method Collection Time Receive d Time (Source) Location / / Volume Laterality Urine 06/04/2022 3:21 PM 2 3:46 CDT PM CDT Amelia Araya APRN, C.N.P., D.N.P. LAB URINE ORDERABLES Performing Organization Address City/[facility]/ZIP [facility] Phon e Number [facility] - 200 [place], [place] [address] [place], [place] [phone] [place] [address] Bacterial Culture, Aerobic + Susc, Urine (06/04/2022 3:21 PM CDT) Holvi Method Time Signature Urine Culture No growth 06/05/2022 DT after 1 day 12:37 PM CDT of incubation. Specimen Anatomical Collection Method Collection Time Receive d Time (Source) Location / / Volume Laterality Urine (Urine, 06/04/2022 3:21 PM 06/04/20 4:07 Straight CDT PM CDT Catheter) Comment: Specimen Source Site: Urine Amelia M Kleinheksel PIPE ROLLER, C.N.P., D.N.P. LAB MICROB IOLOGY - GENERAL ORDERABLES Performing Organization Address City/[facility] Code Phon e Number [facility] - [address] [place], [place] [address] [place] [address] [place] [address] Laboratories-[address] Urinalysis with Microscopic: Urine, Straight Catheter (06/04/2022 3:21 PM CDT) Patholo gist Method Time Signature Source Urine, [...] Urine (Urine, 06/04/2022 3:21 PM 06/04/20 22 3:46 Straight CDT PM CDT Catheter) Katya Sauer APRN.N.PNta, D.N.P. LAB URINE ORDERABLES Performing Organization Address City/[facility]/ZIP Code Phon e Number [facility] - [address] [place], [place] [address] [facility] [place] [address] Laboratories-[address] ECG 12 Lead (06/04/2022 3:11 PM CDT) P athologist Signature Ventricular Rate 77 BPM MUSE ECG/Min CO Interval 166 ms MUSE QRSD Interval 80 ms MUSE QT Interval 388 ms MUSE QTC Interval 439 ms MUSE P [place] 70 degrees MUSE R [place] 66 degrees MUSE T Wave [place] 66 degrees MUSE Specimen Anatomical Collection Method Collection Time Receive d Time (Source) Location / / Volume Laterality 06/04/2022 3:11 PM 2 3:22 CDT PM CDT Impressions MUSE - [...] change was found Reviewed by PAKO Billy Amelia Araya APRN, C.N.P., D.N.P. ECG ORDERA BLES Performing Organization Address City/[facility] Code Phon e Number MUSE MUSE NA (ABNORMAL) SPSMA Result (06/04/2022 3:09 PM CDT) [facility] gist Method Time Signature Neutrophilic Segs 77 (H) 50 - 75 % 06/04/2022 DTL and Bands 3:24 PM CDT Lymphocytes 12 (L) 18 - 42 % 06/04/2022 DHPM 3:24 PM CDT Monocytes 9 2 - 11 % 06/04/2022 DHPM 3:24 PM CDT Eosinophils 2 1 - 3 % 06/04/2022 DHPM 3:24 PM CDT Interpretation SeeComment 06/04/2022 DHPM 3:24 PM CDT Comment: No schistocytes are seen. No pl atelet clumping. Reviewed by: Tech 06/04/2022 3:24 PM CDT DHPM Specimen Anatomical Collection Method Collection Time Receive d Time (Source) Location / / Volume Laterality Blood 06/04/2022 3:09 PM 2 3:09 CDT PM CDT Amelia Araya APRN, C.N.P., D.N.P. LAB BLOOD ADD-ON Performing Organization Address City/[facility]/ZIP [facility] Phon e Number [facility] - [address] [place], [place] [address] [facility] [place] [address] [address] [place] [address] [facility] 200 [facility] Phosphorus Inorganic (06/04/2022 1:43 PM CDT) athologist Signature Phosphorus 2.8 2.5 - 4.5 06/04/2022 DTL (Inorganic), S mg/dL 2:45 PM CDT Specimen Anatomical Collection Method Collection Time Receive d Time (Source) Location / / Volume Laterality Blood (Blood, 06/04/2022 1:43 PM 06/04/20 2:00 Venous) CDT PM CDT Isaura Aguilar APRN, C.N.P., D.N.P. LAB BLOOD ADD-ON Performing Organization Address City/[facility] Code Phon e Number [facility] - [address] (ABNORMAL) Magnesium (06/04/2022 1:43 PM CDT) athologist Signature Magnesium, S 1.3 (L) 1.7 - 2.3 06/04/2022 DTL mg/dL 2:42 PM CDT Specimen Anatomical Collection Method Collection Time Receive d Time (Source) Location / / Volume Laterality Blood (Blood, 06/04/2022 1:43 PM 06/04/20 2:00 Venous) CDT PM CDT Isaura Aguilar APRN, C.N.P., D.N.P. LAB BLOOD ADD-ON Performing Organization Address City/State/[facility] Code Phon e Number [facility] - 200 [place], [place] [address] [place] [id number] [place] [address] T4 (Thyroxine), Free, Serum (06/04/2022 1:40 PM CDT) athologist Signature T4 (Thyroxine), 0.9 0.9 - 1.7 06/04/2022 DTL Free, S ng/dL 6:11 PM CDT Specimen Anatomical Collection Method Collection Time Receive d Time (Source) Location / / Volume Laterality Blood 06/04/2022 1:40 PM 4:10 CDT PM CDT Katya Sauer APRN.N.P., D.N.P. LAB BLOOD ADD-ON Performing Organization Address City/[facility] Code Phon e Number [facility] - [address] [place] [address] [place] [address] 200 [facility] (ABNORMAL) Thyroid Function Clay (06/04/2022 1:40 PM CDT) athologist Signature TSH, Sensitive 0.2 (L) 0.3 - 4.2 06/04/2022 DTL mIU/L 4:44 PM CDT Specimen Anatomical Collection Method Collection Time Receive d Time (Source) Location / / Volume Laterality Blood (Blood, 06/04/2022 1:40 PM 06/04/20 4:10 Venous) CDT PM CDT Katya Sauer APRN.N.P., D.N.P. LAB BLOOD ADD-ON Performing Organization Address City/[facility] Phon e Number [facility] - [id number] [place] [address] Lipase (06/04/2022 1:40 PM CDT) athologist Signature Lipase, S 21 13 - 60 U/L 06/04/2022 4:44 DTL PM CDT Specimen Anatomical Collection Method Collection Time Receive d Time (Source) Location / / Volume Laterality Blood (Blood, 06/04/2022 1:40 PM 06/04/20 4:10 Venous) CDT PM CDT Katya Sauer APRN.N.P., D.N.P. LAB BLOOD ADD-ON Performing Organization Address City/[facility]/ZIP Code Phon e Number [facility] - [address] [place], [place] [address] [place], [place] [phone] [place] [address] (ABNORMAL) Comprehensive Metabolic Panel (06/04/2022 1:40 PM [...] Laterality Blood (Blood, 06/04/2022 1:40 PM 06/04/20 2:00 Venous) CDT PM CDT Amelia Araya APRN, C.N.P., D.N.P. LAB BLOOD ADD-ON Performing Organization Address City/State/ZIP Code Phon e Number [facility] - 200 [place], [place] [address] [facility] [place] [address] [facility] [address] [facility] (ABNORMAL) CBC with Differential, Blood (06/04/2022 1:40 PM CDT) [facility] Method Time Signature Hemoglobin 11.3 (L) 11.6 - 06/04/2022 STMA 15.0 g/dL 1:53 PM CDT Hematocrit 34.7 (L) 35.5 - 06/04/2022 STMA 44.9 % 1:53 PM CDT Erythrocytes 3.65 (L) 3.92 - 06/04/2022 STMA 5.13 1:53 PM CDT x10(12)/L MCV 95.1 78.2 - 06/04/2022 STMA 97.9 fL 1:53 PM CDT RBC Distrib Width 12.6 12.2 - 06/04/2022 STMA 16.1 % 1:53 PM CDT Platelet Count 129 (L) 157 - 371 06/04/2022 STMA x10(9)/L 2:41 PM CDT Comment: Results confirmed by smear, no clumping or interference seen. Leukocytes 8.8 3.4 - 9.6 x10(9)/L 06/04/2022 2:41 PM C DT STMA Neutrophils 6.19 1.56 - 6.45 x10(9)/L 06/04/2022 1:53 P M CDT STMA Lymphocytes 1.82 0.95 - 3.07 x10(9)/L 06/04/2022 1:53 P M CDT STMA Monocytes 0.46 0.26 - 0.81 x10(9)/L 06/04/2022 1:53 PM CDT STMA Eosinophils 0.30 0.03 - 0.48 x10(9)/L 06/04/2022 1:53 P M CDT STMA Basophils 0.05 0.01 - 0.08 x10(9)/L 06/04/2022 1:53 PM CDT STMA Specimen Anatomical Collection Method Collection Time Receive d Time (Source) Location / / Volume Laterality Blood (Blood, 06/04/2022 1:40 PM 06/04/20 1:51 Venous) CDT PM CDT Amelia Araya APRN, C.N.P., D.N.P. LAB BLOOD ADD-ON Performing Organization Address City/State/ZIP Code Phon e Number [facility] - [address] [place], [place] [address] [facility] [place] [address] [facility] [address] (ABNORMAL) Basic Metabolic Panel (06/04/2022 1:40 PM CDT) Analysis Performed At Patho logist Time Signature Potassium, P 3.9 3.6 - 5.2 06/04/2022 STMA mmol/L 2:12 PM CDT Sodium, P 134 (L) 135 - 145 06/04/2022 STMA mmol/L 2:12 PM CDT Chloride, P 101 98 - 107 06/04/2022 STMA mmol/L 2:12 PM CDT Bicarbonate, P 24 22 - 29 06/04/2022 STMA mmol/L 2:12 PM CDT Anion Gap, P 9 7 - 15 06/04/2022 STMA 2:12 PM CDT BUN (Blood Urea 22 (H) 6 - 21 06/04/2022 STMA Nitrogen), P mg/dL 2:12 PM CDT Creatinine 1.22 (H) 0.59 - 06/04/2022 STMA 1.04 mg/dL 2:12 PM CDT Estimated GFR 51 (L) >=60 06/04/2022 STMA (eGFR) mL/min/BSA 2:12 PM CDT Comment: Estimated GFR calculated using the 2020 CKD_EPI creatinine equation. Calcium, Total, P 8.1 (L) 8.8 - 10.2 mg/dL 06/04/2022 2:12 PM CDT STMA Glucose, P 178 (H) 70 - 140 mg/dL 06/04/2022 2:12 PM CDT S TMA Specimen Anatomical Collection Method Collection Time Receive d Time (Source) Location / / Volume Laterality Blood (Blood, 06/04/2022 1:40 PM 06/04/20 1:51 Venous) CDT PM CDT Jodie Sauer APRNN.Stan, D.N.P. LAB BLOOD ADD-ON Performing Organization Address [facility] Phon e Number [facility] - [address] [place] [address] [facility] [place] [address] Bacteria / Bhavin Culture, Blood #2 (06/04/2022 1:39 PM CDT) [facility] Method Time Signature Bacteria/[place] No growth 06/09/2022 DTL da Culture, after 5 3:02 PM CDT Blood days of incubation. Specimen (Source) Anatomical Collection Method Collection Time Re ceived Time Location / / Volume Laterality Blood (Blood, 06/04/2022 1:39 06/04/2022 2:21 Peripheral Draw) PM CDT PM CDT Comment: Specimen Source Site: Blood Narrative [facility] - 06/09/2022 3:02 PM CDT Received Bactec Peds bottle Katya Sauer APRN.N.P., D.N.P. LAB MICROB IOLOGY - GENERAL ORDERABLES Performing Organization Address [facility] Phon e Number [facility] - [address] [place] [address] [facility] [place] [address] [facility]-[address] (ABNORMAL) Hemoglobin A1c (06/04/2022 1:26 PM CDT) P athologist Signature Hemoglobin A1c, 8.9 (H) 4.0 - 5.6 06/04/2022 DTL B % 3:29 PM CDT Comment: Hemoglobin [...] 1:26 PM 2 3:19 CDT PM CDT Jodie Sauer APRNNRosa Isela, D.N.P. LAB BLOOD ADD-ON Performing Organization Address City/[facility] Phon e Number [facility] - [address] [place], [place] [address] [facility] [place], [place] [phone] [place] [address] SARS Coronavirus 2, PCR Rapid, V (06/04/2022 8:30 AM CDT) Patholo gist Method Time Signature SARS CoV-2, Undetected Undetected 06/04/2022 STMA PCR, Rapid, V 9:16 AM CDT Comment: ----ADDITIONAL INFORMATION---- This RT-PCR test was performed using the [employer] SARS-CoV-2 and Influenza A/B Reagent assay from [email or web address], which has received Emergency Use Authori zation(EUA) by the U.S. Food and Drug Administration . Fact sheets for this Emergency Use Autho rization (EUA) assay can be found at the following link s: For Healthcare Providers: https://www.fda.gov/media/998431/downloa d For Patients: https://www.fda.gov/media/634543/downloa d SARS Coronavirus 2, Source, Rapid Swab, Nasopharynx 06/04/2022 8:54 AM CDT STMA Specimen Anatomical Collection Method Collection Time Receive d Time (Source) Location / / Volume Laterality 06/04/2022 8:30 AM 2 8:54 CDT AM CDT Jodie Sauer APRNNNatPNat, D.N.P. LAB MICROB IOLOGY - GENERAL ORDERABLES Performing Organization Address City/[facility] Code Phon e Number [facility] - [address] [place], [place] [address] [facility] [place] [place] [address] Glucose, POCT (06/04/2022 6:35 AM CDT) Analysis Performed At Patho logist Time Signature Glucose, POCT, 134 70 - 140 06/04/2022 PCLX B mg/dL 6:38 AM CDT Site Capillary 06/04/2022 PCLX 6:38 AM CDT Specimen Anatomical Collection Method Collection Time Receive d Time (Source) Location / / Volume Laterality Blood 06/04/2022 6:35 AM 2 6:38 CDT AM CDT Unknown Provider LAB POCT ORDERABLES-MANUAL Performing Organization Address City/[facility]/ZIP [facility] Phon e Number POC [facility] [address] [place] [address] PCLX [facility] [place] [address] [place] [facility] [address] [facility] Bacteria / Bhavin Culture, Blood #1 (06/03/2022 10:14 PM CDT) [facility] [employer] Method Time Signature Bacteria/[place] No growth 06/08/2022 DT da Culture, after 5 11:02 PM CDT Blood days of incubation. Specimen (Source) Anatomical Collection Method Collection Time Re ceived Time Location / / Volume Laterality Blood (Blood, 06/03/2022 10:14 06/03/2022 Peripheral Draw) PM CDT 10:44 PM CD T Comment: Specimen Source Site: Blood Narrative [facility] - 06/08/2022 11:02 PM CDT Received Bactec Peds bottle Isaura Aguilar APRN, C.N.P., D.N.P. LAB MICROBIOLOGY - GENERAL ORDERABLES Performing Organization Address City/[facility] Phon e Number [facility] - [address] [place], [place] [address] [place] [address] [facility] [address] [facility] Clostridioides (Clostridium) difficile Toxin, Molecular Detection, PCR, Feces (06/03/2022 7:42 PM CDT) [facility] [employer] Method Time Signature Specimen STOOL 06/04/2022 DTL Source 10:27 PM CDT Result Negative Not Applicable 06/04/2022 DTL 10:27 PM CDT Comment: ----ADDITIONAL INFORMATION---- This test was developed and its performa nce characteristics determined by [facility] in a manner consistent with CLIA requirements. This test has not been cleared or approved by the [place] d and Drug Administration. Specimen Anatomical Collection Method Collection Time Receive d Time (Source) Location / / Volume Laterality Stool (Stool) 06/03/2022 7:42 PM 06/03/20 8:20 CDT PM CDT Jodie Holder APRNN.Stan, D.N.P. LAB MICROBIOLOGY - GENERAL ORDERABLES Performing Organization Address City/State/ZIP Code Phon e Number [facility] - [address] [place], [place] [address] [facility] [place] [address] [facility] [address] documented in this encounter Visit Diagnoses Diagnosis Diarrhea - Primary Failure To Thrive Adult Decline Functional Status [R53.81 (ICD-1 0-CM)] Stroke Cerebrovascular Accident Personal History Hypertension Essential Primary Other Hyperlipidemia Diabetes Mellitus Type 2 (HCC) Dehydration Delirium (not otherwise specified) documented in this encounter Admitting Diagnoses Diagnosis Failure To Thrive Adult documented in this encounter Administered Medications Inactive Administered Medications - up to 3 most recent administrations Medication Order MAR Action Action Date Dose Rate Site acetaminophen tablet 650 mg Given 06/06/2022 10:01 AM CDT 650 mg (TYLENOL) 650 mg, oral, Every 6 hours PRN, moderate pain or score 4-6 of 10, headaches, fever, Starting on Mon06/03/22 at 1756 atorvastatin tablet 20 mg (LIPITOR) Given 06/08/2022 10:51 AM CDT 20 mg 20 mg, oral, Daily, First dose on 06/04/22 at 0900 Given 06/06/2022 10:02 AM CDT 20 mg Given 06/05/2022 12:04 PM CDT 20 mg calcium carbonate-vitamin D3 1,250 mg (500 Given 06/08 10:52 AM CDT 1 tablet mg calcium)-5 mcg (200 Unit) per tablet 1 tablet 1 tablet, oral, Daily with breakfast, First dose on 06/04/22 at 0800, calcium carbonate/vitamin-D 1250 mg(500 mg elemental)/200 units was interchanged for calcium carbonate/ calcium carbonate/vitamin D 600 mg/400 units Take with food. Given 06/06/2022 10:00 AM CDT 1 tablet Given 06/04/2022 12:58 PM CDT 1 tablet carboxymethylcellulose 0.5 % ophthalmic Given 06/06/2022 9:04 PM CDT 1 drop solution 1 drop (REFRESH PLUS) 1 drop, both eyes, 4 times daily PRN, dry eyes, Starting on Mon06/03/22 at 1842 Given 06/05/2022 9:36 PM CDT 1 drop carvediloL tablet 3.125 mg (COREG) Given 06/08/2022 10:53 AM CDT 3.125 mg 3.125 mg, oral, 2 times daily with meals, First dose on 06/04/22 at 0800, Hold for heart rate less than 55, systolic blood pressure less than 90 Given 06/07/2022 5:54 PM CDT 3.125 mg Given 06/06/2022 10:01 AM CDT 3.125 mg cholecalciferol capsule 125 mcg (VITAMIN Given 06/08/2022 10:57 AM CDT 125 mcg D3) 125 mcg, oral, Daily, First dose on 06/04/22 at 0900 Given 06/06/2022 10:07 AM CDT 125 mcg Given 06/05/2022 12:04 PM CDT 125 mcg clopidogreL tablet 75 mg (PLAVIX) Given 06/08/2022 10:52 AM CDT 75 mg 75 mg, oral, Daily, First dose on 06/04/22 at 0900, For 182 days Given 06/06/2022 10:02 AM CDT 75 mg Given 06/05/2022 12:04 PM CDT 75 mg desmopressin tablet 0.2 mg (DDAVP) Given 06/07/2022 8:10 PM CDT 0.2 mg 0.2 mg, oral, 3 times weekly (Once per day on Mon), First dose on 06/05/22 at 1700 Given 06/05/2022 4:31 PM CDT 0.2 mg ferrous sulfate tablet 65 mg of iron Given 06/08/2022 10:52 AM CDT 65 mg of iron 65 mg of iron, oral, Daily, First dose on 06/04/22 at 0900 Given 06/06/2022 10:02 AM CDT 65 mg of iron Given 06/05/2022 12:04 PM CDT 65 mg of iron heparin (porcine) Given 06/07/2022 8:12 PM CDT 5,000 Units Left Upper Abdomen injection 5,000 Units 5,000 Units, subcutaneous, Every 12 hours scheduled, First dose (after last modification) on 06/04/22 at 0900 Given 06/07/2022 11:57 AM CDT 5,000 Units Left Upper Arm (Back) Given 06/06/2022 8:57 PM CDT 5,000 Units Left Upper Arm (Back) insulin aspart U-100 Given 06/07/2022 5:54 PM CDT 1 Units Right Upper Arm injection 0-7 Units (Back ) (NovoLOG FlexPen) 0-7 Units, subcutaneous, 3 times daily, First dose on 06/04/22 at 1700, Insulin Scale: Custom Correction Scale, Enter custom range and dose: 200-240 give 1 unit, 241-280 give 2 units, 281-320 give 3 units, 321-360 give 4 units, 361-400 give 5 units, > 401 notify service Given 06/07/2022 2:37 PM CDT 2 Units Right Upper Arm (Back) Given 06/06/2022 4:36 PM CDT 4 Units Left Upper Abdomen insulin aspart U-100 Given 06/05/2022 2:24 AM CDT 5 Units Left Upper Arm injection 5 Units (NovoLOG (Back) FlexPen) 5 Units, subcutaneous, Once, On 06/05/22 at 0230, For 1 dose insulin glargine injection Given 06/05/2022 3:44 PM CDT 3 Units Right Lower Abdomen 3 Units 3 Units, subcutaneous, Daily, First dose (after last modification) on 06/05/22 at 1415 insulin glargine injection Given 06/07/2022 2:39 PM CDT 4 Units Right Upper Arm 4 Units (Back) 4 Units, subcutaneous, Daily, First dose (after last modification) on 06/06/22 at 1400 Given 06/06/2022 3:00 PM CDT 4 Units Left Upper Arm (Back) iohexoL 350 mg iodine/mL solution 1-200 mL Given 06/06/2022 7:25 PM CDT 130 mL (OMNIPAQUE) 1-200 mL, intravenous, Once in imaging, contrast, Starting on 06/06/22 at 1923, For 1 dose, Imaging Protocol Orders, Dose per Radiant Medication Guidelines lactated Ringer's bolus 500 mL New Bag 06/04/2022 3:25 PM CDT 500 mL 125 mL/hr 500 mL, intravenous, at 125 mL/hr, Administer over 4 Hours, Once, On Mon06/04/22 at 1500, For 1 dose lactated Ringer's bolus 500 mL New Bag 06/06/2022 8:47 PM CDT 500 mL 250 mL/hr 500 mL, intravenous, at 250 mL/hr, Administer over 2 Hours, Once, On Mon06/06/22 at 1815, For 1 dose lactated ringers New Bag 06/03/2022 10:23 PM CDT 100 mL/hr 100 mL/hr 100 mL/hr, intravenous, Continuous, Starting on Mon06/03/22 at 1930, For 10 hours levothyroxine tablet 75 mcg (SYNTHROID, Given 06/04/2022 12:56 P M CDT 75 mcg LEVOTHROID) 75 mcg, oral, 6 times weekly (Once per day on Mon), First dose on Mon06/04/22 at 0900 levothyroxine tablet 75 mcg (SYNTHROID, Given 06/07/2022 8:05 PM CDT 75 mcg LEVOTHROID) 75 mcg, oral, 6 times weekly (Once per day on Mon), First dose (after last modification) on Mon06/06/22 at 2100, Please administer at least 3-4 hours after evening meal. magnesium chloride DR tablet 128 mg Given 06/08/2022 10:51 AM CD T 128 mg (MAG-DELAY) 128 mg, oral, Daily before breakfast, First dose (after last modification) on Mon06/08/22 at 0700, magnesium chloride 64 mg oral daily was interchanged for magnesium chloride 71.5 mg Swallow whole. Do NOT crush, chew, or split tablet. magnesium sulfate in water IVPB 2 g New Bag 06/06/2022 8:46 PM CDT 2 g 25 mL/hr 2 g, intravenous, at 25 mL/hr, Administer over 120 Minutes, Once, On Mon06/06/22 at 1815, For 1 dose, Over 2 hours. magnesium sulfate in water IVPB 4 g New Bag 06/04/2022 4:00 PM CDT 4 g 25 mL/hr 4 g, intravenous, at 25 mL/hr, Administer over 240 Minutes, Once, On Mon06/04/22 at 1500, For 1 dose, Over 4 hours. mirtazapine tablet 30 mg (REMERON) Given 06/07/2022 8:05 PM CDT 30 mg 30 mg, oral, Daily at bedtime, First dose on Mon06/03/22 at 2100 Given 06/06/2022 8:57 PM CDT 30 mg Given 06/05/2022 9:29 PM CDT 30 mg gfrsrxrerkcd-yphf-AW-Ca-minerals 400 mcg Given 06/08/2022 10:51 AM 1 tablet (folic acid) tablet 1 tablet (THERAPEUTI C-M) CDT 1 tablet, oral, Daily, First dose on 06/04/22 at 0900 Given 06/06/2022 10:01 AM CDT 1 tablet Given 06/04/2022 12:40 PM CDT 1 tablet nystatin 100,000 unit/gram cream 1 Given 06/07/2022 4:01 PM CDT 1 application application (MYCOSTATIN) 1 application, topical, Daily, First dose on Mon06/04/22 at 0900 ondansetron ODT disintegrating tablet 4 mg Given 06/08/2022 11:5 1 AM CDT 4 mg (ZOFRAN-ODT) 4 mg, oral, Every 8 hours PRN, nausea, vomiting, Starting on Mon06/03/22 at 1817, When splitting ODT at bedside, handle with gloves and a pill splitter to prevent moisture contact. Given 06/05/2022 9:02 PM CDT 4 mg Given 06/05/2022 12:04 PM CDT 4 mg polyethylene glycol powder packet 17 g Given 06/08/2022 10:53 AM CDT 17 g (MIRALAX) 17 g, oral, Daily, First dose on Mon06/07/22 at 2030, Dissolve in 240 mLs (8 ounces) of water prior to giving. Avoid mixing with starch-based thickened liquids. fywsxmcxz-rqlmxb-cjepvetop 280-160-250 mg Given 06/07/2022 2 :37 PM CDT 1 packet per packet 1 packet (PHOS-NAK) 1 packet, oral, Every 4 hours while awake, First dose on Mon06/06/22 at 2200, For 4 doses, Monitor the following for replacement: Phosphorus Given 06/07/2022 11:57 AM CDT 1 packet Given 06/06/2022 9:03 PM CDT 1 packet valqclmty-ymecld-qprbvkzzq 280-160-250 mg Given 2021 10:51 AM CDT 1 packet per packet 1 packet (PHOS-NAK) 1 packet, oral, Every 4 hours while awake, First dose on Mon06/07/22 at 1800, For 4 doses, Monitor the following for replacement: Phosphorus Given 06/07/2022 6:00 PM CDT 1 packet predniSONE tablet 5 mg (DELTASONE) Given 06/08/2022 10:52 AM CDT 5 mg 5 mg, oral, Daily, First dose on Mon06/04/22 at 0900 Given 06/06/2022 10:01 AM CDT 5 mg Given 06/05/2022 12:04 PM CDT 5 mg risperiDONE tablet 0.25 mg (RisperDAL) Given 06/07/2022 8:06 PM CDT 0.25 mg 0.25 mg, oral, Daily at bedtime, First dose on Mon06/03/22 at 2100 Given 06/06/2022 8:57 PM CDT 0.25 mg Given 06/05/2022 9:29 PM CDT 0.25 mg sennosides-docusate sodium 8.6-50 mg per Given 06/08/2022 10 :52 AM CDT 1 tablet tablet 1 tablet (SENOKOT-S) 1 tablet, oral, 2 times daily, First dose on Mon06/07/22 at 2100 sodium chloride (PF) 0.9 % injection 1-1 00 mL Given 06/06/2022 7:25 PM CDT 80 mL 1-100 mL, intravenous, Once, On Mon06/06/22 at 1930, For 1 dose, Imaging Protocol Orders sodium chloride 0.9 % injection 3 mL Given 06/06/2022 8:55 PM CDT 3 mL 3 mL, intravenous, Every 12 hours scheduled, First dose on Mon06/03/22 at 2100, Peripheral Intravenous Catheter and Rapid Infusion Catheter, when no infusion to maintain patency Given 06/06/2022 10:17 AM CDT 3 mL Given 06/05/2022 10:01 PM CDT 3 mL thiamine injection 100 mg (VITAMIN B1) Given 06/06/2022 8:36 PM CDT 100 mg 100 mg, intravenous, Daily, First dose on Mon22 at 1815 thiamine tablet 100 mg (VITAMIN B1) Given 06/05/2022 12:04 PM CDT 100 mg 100 mg, oral, Daily, First dose on 06/04/22 at 0900 Given 06/04/2022 12:42 PM CDT 100 mg documented in this encounter Active and Recently Administered Medications Times are shown in CDT. Scheduled Medication Order 06/06/2022 06/07/2022 06/08/2022 atorvastatin tablet 20 mg (LIPITOR) 1002 (Given - Prov ider: Oralia Bains R.N. - Comment: pt sleeping) 1157 (Not Given - Provider: Hill wilkinson R.N. - Reason: Patient/family refused - Comment: pt refused) 1051 (Given - Provider: Iris Cortes R.N. - Comment: per family request. Pt wanted to take her meds with her morning breakfast) 20 mg, oral, Daily, First dose on 06/04/22 at 0900 calcium carbonate-vitamin D3 1,250 mg (5 00 mg calcium)-5 mcg (200 Unit) per tablet 1 tablet 1000 (Given - Provider: Oralia Bains R.N. - Comment: pt sleeping) 1157 (Not Given - Provider: Hill wilkinson R.N. - Reason: Patient/family refused - Comment: pt refused) 1052 (Given - Provider: Iris Cortes R.N. - Comment: per family request. Pt wanted to take her meds with her morning breakfast) 1 tablet, oral, Daily with breakfast, Fi rst dose on 06/04/22 at 0800, calcium carbonate/vitamin-D 1250 mg(500 mg elemental)/200 units was interchanged for calcium carbonate/ calcium carbonate/vitamin D 600 mg/400 units Take with food. carvediloL tablet 3.125 mg (COREG) 1001 (Given - Provi miah: Oralia Bains R.N. - Comment: pt sleeping)1633 (Not Given - Provider: Oralia Bains R.N. - Reason: Patient/family refused) 1157 (Not Given - Provider: Hill wilkinson R.N. - Reason: Patient/family refused - Comment: pt refused)1754 (Given - Provider: Hill Elizondo R.N.) 1053 (Given - Provider: Iris metzger R.N. - Comment: per family request. Pt wanted to take her meds with her morning breakfast) 3.125 mg, oral, 2 times daily with meals , First dose on 06/04/22 at 0800, Hold for heart rate less than 55, systolic blood pressure less than 90 cholecalciferol capsule 125 mcg (VITAMIN D3) 1007 (Giv en - Provider: Oralia Bains R.N. - Comment: pt sleeping) 1205 (Not Given - Provider: Hill Elizondo R.N. - Reason: Patient/family refused - Comment: pt refused) 1057 (Given - Provider: Iris Cortes R.N. - Comment: pt wanted meds with breakfast) 125 mcg, oral, Daily, First dose on 06/04/22 at 0900 clopidogreL tablet 75 mg (PLAVIX) 1002 (Given - Provid er: Oralia Bains R.N. - Comment: pt sleeping) 1157 (Not Given - Provider: Hill wilkinson RKaron - Reason: Patient/family refused - Comment: pt refused) 1052 (Given - Provider: Iris Cortes R.N. - Comment: per family request. Pt wanted to take her meds with her morning breakfast) 75 mg, oral, Daily, First dose on 06/04/22 at 0900, For 182 d ays desmopressin tablet 0.2 mg (DDAVP) 1218 (Not Given - Provider: Oralia Bains RKaron - Reason: Patient/family refused)2009 (Given - Provider: Reji Myers R.N. - Comment: Pt refused med this Am Per daughter, pt takes it at night) 0.2 mg, oral, 3 times weekly (Once per d ay on Sun Monu), First dose on 06/05/22 at 1700 ferrous sulfate tablet 65 mg of iron 1002 (Given - Pro vider: Oralia Bains R.N. - Comment: pt sleeping) 1156 (Not Given - Provider: Hill wilkinson RKaron - Reason: Patient/family refused - Comment: pt refused) 1052 (Given - Provider: Iris Cortes R.N. - Comment: per family request. Pt wanted to take her meds with her morning breakfast) 65 mg of iron, oral, Daily, First dose on 06/04/22 at 0900 heparin (porcine) injection 5,000 Units 1003 (Given - Provider: Oralia Bains R.N. - Comment: pt sleeping)2056 (Given - Provider: Lizy Ryan RNatNNat) 115 (Given - Provider: Oralia Bains R.N. - Comment: pt refused)2011 (Given - Provider: Reji Myers RNatNNat) 1054 (Not Given - Provider: Iris turner RNatNNat - Reason: Patient/family refused - Comment: per family request. Pt wanted to take her meds with her morning breakfast) 5,000 Units, subcutaneous, Every 12 hour s scheduled, First dose (after last modification) on 06/04/22 at 0900 insulin aspart U-100 injection 0-7 Units (NovoLOG Flex Pen) 1009 (Given - Provider: Oralia Bains R.N. - Comment: late breakfast)1310 (Not Given - Provider: Hill Elizondo RKaron - Reason: Order parameters not met)1636 (Given - Provider: Oralia Bains RNatNNat) 1005 (Not Given - Provider: Oralia em R.NNat - Reason: Order parameters not met)1437 (Given - Provider: Oralia Bains RNatNNat - Comment: Pt [id number])1754 (Given - Provider: Hill Elizondo R.N.) 0817 (Not Given - Provider: Iris Cortes RNatNNat - Reason: Order parameters not met)1111 (Not Given - Provider: Iris Cortes RNatNNat - Reason: Order parameters not met) 0-7 Units, subcutaneous, 3 times daily, First dose on 06/04/22 at 1700, Insulin Scale: Custom Correction Scale, Enter custom range and dose: 200-240 give 1 unit, 241-280 give 2 units, 281-320 give 3 units, 321-360 give 4 units, 361-400 give 5 units, > 401 notify service insulin aspart U-100 injection 1-7 Units (NovoLOG Flex Pen) 2037 (Not Given - Provider: Lizy Ryan R.N. - Reason: Order parameters not met - Comment: Blood sugar 94 per home device, pt refused finger poke.) 1-7 Units, subcutaneous, Once, On Mon at 2100, For 1 dose, Insulin Scale: Custom Bedtime Correction Scale, Enter custom range and dose: 251-290: 1 unit, 291-330: 2 units, 331-370: 3 units, 371-400: 4 units, >401 page service insulin glargine injection 4 Units 1500 (Given - Provi miah: Oralia Bains R.N. - Comment: Pt refused-wanted to finish late lunch) 1439 (Given - Provider: Oralia Bains R.N.) 4 Units, subcutaneous, Daily, First dose (after last modification) on Mon06/06/22 at 1400 lactated Ringer's bolus 500 mL (COMPLETED) 2046 (New B ag - Provider: Lizy Ryan R.N.) 500 mL, intravenous, at 250 mL/hr, Admin ister over 2 Hours, Once, On Mon06/06/22 at 1815, For 1 dose levothyroxine tablet 75 mcg (SYNTHROID, LEVOTHROID) 210 (Not Given - Provider: Lizy Ryan R.N. - Reason: Patient/family refused)2004 (Given - Provider: Reji Meyrs RKaron) 75 mcg, oral, 6 times weekly (Once per d ay on Mon), First dose (after last modification) on Mon06/06/22 at 2100, Please administer at least 3-4 hours after evening meal. magnesium chloride DR tablet 128 mg (MAG-DELAY) 1051 (Given - Provider: Iris Cortes R.N. - Comment: per family request. Pt wanted to take her meds with her morning breakfast) 128 mg, oral, Daily before breakfast, Fi rst dose (after last modification) on Mon06/08/22 at 0700, magnesium chloride 64 mg oral daily was interchanged for magnesium chloride 71.5 mg Swallow whole. Do NOT crush, chew, or split tablet. magnesium sulfate in water IVPB 2 g (COMPLETED) 2045 ( New Bag - Provider: Lizy Ryan R.N.) 2 g, intravenous, at 25 mL/hr, Administe r over 120 Minutes, Once, On Mon06/06/22 at 1815, For 1 dose, Over 2 hours. mirtazapine tablet 30 mg (REMERON) 2056 (Given - Provi miah: Lizy Ryan R.N.) 2004 (Given - Provider: Reji Myers R.N.) 30 mg, oral, Daily at bedtime, First dose on Mon06/03/22 at 2100 uizhehrnabyz-vstc-UZ-Ca-minerals 400 mcg (folic acid) tablet 1 tablet (THERAPEUTIC-M) 1001 (Given - Provider: Oralia Bains R.N. - Comment: pt sleeping) 1157 (Not Given - Provider: Hill wilkinson R.N. - Reason: Patient/family refused - Comment: pt refused) 1051 (Given - Provider: Iris Cortes R.N. - Comment: per family request. Pt wanted to take her meds with her morning breakfast) 1 tablet, oral, Daily, First dose on 06/04/22 at 0900 nystatin 100,000 unit/gram cream 1 application (MYCOST ATIN) 1310 (Not Given - Provider: Hill Elizondo R.N. - Reason: Patient/family refused) 1601 (Given - Provider: Oralia Bains R.N. - Comment: pt request) 1110 (Not Given - Provider: Iris Cortes R.N. - Reason: Patient/family refused) 1 application, topical, Daily, First dose on 06/04/22 at 0900 polyethylene glycol powder packet 17 g (MIRALAX) 2202 (Not Given - Provider: Reji Myers R.N. - Reason: Patient/family refused) 1053 (Given - Provider: Iris Cortes R.N. - Comment: per family request. Pt wanted to take her meds with her morning breakfast) 17 g, oral, Daily, First dose on 12/24 at 2030, Dissolve in 240 mLs (8 ounces) of water prior to giving. Avoid mixing with starch-based thickened liquids. cdtgarqfw-bjuqwr-aomsvwwvm 280-160-250 m g per packet 1 packet (PHOS-NAK) () 210 (Given - Provider: Lizy Ryan R.N.) 1157 ( Given - Provider: Oralia Bains R.N. - Comment: pt refused)1218 (Not Given - Provider: Oralia Bains R.N. - Reason: Patient/family refused)1437 (Given - Provider: Oralia Bains R.N.) 1 packet, oral, Every 4 hours while awak e, First dose on Mon06/06/22 at 2200, For 4 doses, Monitor the following for replacement: Phosphorus dlhqwxasp-xgrtnn-rtficbuvg 280-160-250 mg per packet 1 packe t (PHOS-NAK) 1800 (Given - Provider: Hill Elizondo RKaron)2324 (Not Given - Provider: Reji Myers R.N. - Reason: Patient/family refused) 1051 (Given - Provider: Iris Cortes R.N. - Comment: per family request. Pt wanted to take her meds with her morning breakfast)1056 (Not Given - Provider: Iris Cortes R.N. - Reason: Other - Comment: pt sleeping) 1 packet, oral, Every 4 hours while awak e, First dose on Mon06/07/22 at 1800, For 4 doses, Monitor the following for replacement: Phosphorus predniSONE tablet 5 mg (DELTASONE) 1001 (Given - Provi maih: Oralia Bains R.N. - Comment: pt sleeping) 1158 (Not Given - Provider: Hill wilkinson RNatNNat - Reason: Patient/family refused - Comment: pt refused) 1052 (Given - Provider: Iris Cortes R.N. - Comment: per family request. Pt wanted to take her meds with her morning breakfast) 5 mg, oral, Daily, First dose on Mon06/04/22 at 0900 risperiDONE tablet 0.25 mg (RisperDAL) 2056 (Given - P rovider: Lizy Ryan R.N.) 2005 (Given - Provider: Reji Myers R.N.) 0.25 mg, oral, Daily at bedtime, First dose on Mon06/03/22 at 21 00 sennosides-docusate sodium 8.6-50 mg per tablet 1 tablet (SE NOKOT-S) 2201 (Not Given - Provider: Reji Myers R.N. - Reason: Patient/family refused) 105 (Given - Provider: Iris Cortes R.N. - Comment: per family request. Pt wanted to take her meds with her morning breakfast) 1 tablet, oral, 2 times daily, First dose on Mon06/07/22 at 2100 sodium chloride (PF) 0.9 % injection 1-100 mL (COMPLET ED) 1925 (Given - Provider: Christin Kirkpatrick R.N.) 1-100 mL, intravenous, Once, On 06/06 at 1930, For 1 dose, Imaging Protocol Orders sodium chloride 0.9 % injection 10-30 mL 10-30 mL, intravenous, Once, On 06/03 at 2230, For 1 dose, 10 mL flush to each lumen sodium chloride 0.9 % injection 10-30 mL 10-30 mL, intravenous, Once, On 06/04 at 0800, For 1 dose, 10 mL flush to each lumen sodium chloride 0.9 % injection 3 mL 1017 (Given - Pro vider: Oralia Bains R.N. - Comment: pt sleeping)2054 (Given - Provider: Lizy Ryan R.N.) 1213 (Not Given - Provider: Hill Elizondo R.N. - Reason: Order parameters not met - Comment: IV will not flush)2006 (Not Given - Provider: Reji Myers R.N. - Reason: Order parameters not met - Comment: no PIV) 105 (Not Given - Provider: Iris Cortes R.N. - Reason: Loss of IV access) 3 mL, intravenous, Every 12 hours schedu led, First dose on Mon06/03/22 at 2100, Peripheral Intravenous Catheter and Rapid Infusion Catheter, when no infusion to maintain patency thiamine injection 100 mg (VITAMIN B1) 2035 (Given - P rovider: Lizy Ryan R.Larry) 1157 (Not Given - Provider: Hill wilkinson R.N. - Reason: Loss of IV access - Comment: pt refused) 1053 (Not Given - Provider: Iris turner R.N. - Reason: Loss of IV access - Comment: per family request. Pt wanted to take her meds with her morning breakfast) 100 mg, intravenous, Daily, First dose on Mon06/06/22 at 1815 PRN Medication Order 06/06/2022 06/07/2022 06/08/2022 acetaminophen tablet 650 mg (TYLENOL) 1001 (Given - Pr ovider: Oralia Bains RNatNNat - Comment: pt sleeping) 650 mg, oral, Every 6 hours PRN, moderat e pain or score 4-6 of 10, headaches, fever, Starting on Mon06/03/22 at 1756 carboxymethylcellulose 0.5 % ophthalmic solution 1 thiago p (REFRESH PLUS) 2103 (Given - Provider: Lizy Ryan R.N.) 1 drop, both eyes, 4 times daily PRN, dry eyes, Starti ng on Mon06/03/22 at 1842 iohexoL 350 mg iodine/mL solution 1-200 mL (OMNIPAQUE) (COMPLETED) 1925 (Given - Provider: Christin Kirkpatrick R.N. - Comment: [id number]) 1-200 mL, intravenous, Once in imaging, contrast, Starting on Mon06/06/22 at 1923, For 1 dose, Imaging Protocol Orders, Dose per Radiant Medication Guidelines ondansetron ODT disintegrating tablet 4 mg (ZOFRAN-ODT) 1157 (Not Given - Provider: Hill Elizondo RKaron - Reason: Patient/family refused - Comment: pt refused) 1151 (Given - Provider: Iris metzger RKaron) 4 mg, oral, Every 8 hours PRN, nausea, v omiting, Starting on Mon06/03/22 at 1817, When splitting ODT at bedside, handle with gloves and a pill splitter to prevent moisture contact. sodium chloride 0.9 % injection 10 mL 10 mL, intravenous, As needed, line care , Starting on Mon06/03/22 at 1756, Peripheral Intravenous Catheter and Rapid Infusion Catheter, prior to blood sampling, post blood transfusion or post blood sampling sodium chloride 0.9 % injection 3 mL 3 mL, intravenous, As needed, line care, Starting on Mon06/03/22 at 1756, Prior to and following infusion and between multiple consecutive infusions: sodium chloride 0.9 % injection documented in this encounter Additional Health Concerns Infection Onset Date Last Indicated Resolved Time COVID19 Pending 06/04/2022 06/04/2022 06/04/2022 9:17 AM CDT documented as of this encounter Care Teams Legal Service Specialist Relationship Specialty Start Date End Date Elsewhere, Pcp PCP - General Internal Medicine 06/03/22 documented as of this encounter
--- OUTSIDE RECORDS SUMMARY | 2022-06-10 13:02 | XMS_ITS | Encounter Summary ---
:1960 Author Organization [facility] Address [address] [place] [address] Care Team Providers Name Role Phone None Reported, Pcp Primary Care Provider Unavailable Encounter Details Date Type Department Care Team Description 05/26/2022 Orders Only Department of Obstetrics Lizy Fabian M.D. and Gynecology in [address] [place] [address] [place] [phone] [place] [address] [phone] Social History Tobacco Use Types Packs/Day Years [...] Comprehensive Visit Neurology Zelalem Nicole M.D. [address] [place] [phone] 07/13/2022 Office Visit Gynecology Lizy Fabian M.D. [address] [place] [phone] documented as of this encounter Visit Diagnoses Not on filedocumented in this encounter Care Teams Cvor Nurse Relationship Specialty Start Date End Date None Reported, Pcp PCP - General Family Medicine 05/13/22 documented as of this encounter
--- OUTSIDE RECORDS SUMMARY | 2022-06-10 13:02 | XMS_ITS | Encounter Summary ---
:1960 Author Organization [facility] Address [address] [place] [address] Care Team Providers Name Role Phone Elsewhere, Pcp Primary Care Provider Unavailable Encounter Details Date Type Department Care Team Description 06/03/2022 Clinical Communication Division of Leeroy Nair Endocrinology in [place], [place] [address] [facility] [address] [place] [phone] Social History Tobacco Use Types Packs/Day Years Used Date Smoking Tobacco: Never Smokeless Tobacco: Never Alcohol Use Standard Drinks/Week Comments Never 0 (1 standard drink = 0.6 oz pure alcoho l) Sex Assigned at Date Recorded Not on file documented as of this encounter Miscellaneous Notes Telephone Encounter - Lou Vargas - 06/03/2022 4:48 PM CDT Hello! Oneyda stopped by this afternoon asking if she could have a follow up with you but I dont see anything scheduled. Would you be able to put an order through? Also they said that insurance is saying that they need medical justification for the leanne size pens that you prescribed her. Would you be ableto help out with that as well? She also is hoping to change the pharmacy that you are trying to sendit to, to [facility] in [place]. Please advise. Thank you! RST END [employer] DESK documented in this encounter Plan of Treatment Upcoming Encounters Date Type Specialty Care Team Description 07/01/2022 Clinical Communication Admitting/Central Scheduling 07/04/2022 Comprehensive Visit Neurology Zelalem Nicole M.D. [address] [place] [address] 07/13/2022 Office Visit Gynecology Lizy Fabian M.D. [address] [place] [address] documented as of this encounter Visit Diagnoses Not on filedocumented in this encounter Additional Health Concerns Infection Onset Date Last Indicated Resolved Time COVID19 Pending 06/04/2022 06/04/2022 06/04/2022 9:17 AM CDT documented as of this encounter Care Teams Exhibitions And Collections Manager Relationship Specialty Start Date End Date Elsewhere, Pcp PCP - General Internal Medicine 06/03/22 documented as of this encounter
--- OUTSIDE RECORDS SUMMARY | 2022-06-10 13:02 | XMS_ITS | Encounter Summary ---
:1960 Author Organization [facility] Address [address] [place] [address] Care Team Providers Name Role Phone Elsewhere, Pcp Primary Care Provider Unavailable Reason for Visit Outpatient (Routine) - Closed Specialty Diagnoses / Procedures Referred By Contact Refer red To Contact Infectious Diseases Diagnoses Infection Urinary Tract Endometritis Lizy Fabian [facility] [place] [address] [place] [address] Referral ID Status Reason Start Date Expiration Date Visits V isits Requested Authorized [id number] Closed Specialty 05/18/2022 05/18/2023 1 1 Services Required Encounter Details Date Type Department Care Team Description 06/03/2022 Comprehensive Visit Section of Alhaji Fabian ra, M.D. [address] [place] [phone] Infection Urinary Tract; Infectious Diseases Monika Martinez M.D. 200 [place] [phone] Endometritis in [place], [place] [address] [place] [phone] Social History Tobacco Use Types Packs/Day Years Used Date Smoking Tobacco: Never Smokeless Tobacco: Never Alcohol Use Standard Drinks/Week Comments Never 0 (1 standard drink = 0.6 oz pure alcoho l) Sex Assigned at Date Recorded Not on file documented as of this encounter Consult Notes Monika Martinez M.D. - 06/03/2022 2:30 PM CDT INFECTIOUS DISEASES CLINIC CONSULT NOTE DEMOGRAPHIC INFORMATION Clinic Number:[id number] Patient Name: Oneyda Guerrero Age: 61 y.o. Birthdate: 1960 Sex: female Address: [address] [place] [address] [facility] [phone] Service: Infectious Diseases Outpatient Consultation Service Service Date/Time: 06/03/22 REFERRING PROVIDER Lizy Fabian M.D. REASON FOR CONSULT We are asked to see the patient to give further recommendations for evaluation and management of endometritis. Patient seen and examined. SUBJECTIVE HISTORY OF PRESENT ILLNESS Ms. Guerrero is a 61 y.o. female with past medical history significant for originally from [facility] who has lived in [place] for many years. She has recently been moved to [place] where her daughter, Mikala lives. 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 She is since been on replacement therapy with prednisone DDAVP and has been on levothyroxine for hypothyroidism. Patient also has type 2 diabetes and has been on metformin. In May 2021 patient developed a CVA. During that admission in [place] she was diagnosed with a urinary tract infection. She was sent to a rehab hospital. Subsequently in August 2021 she had another CVA and was hospitalized again. She was again diagnosed with a UTI. She was subsequently transitioned to rehab. She was improving per her daughter. She was able to talk to her on zoom however he subsequently developed altered mental status and ultimately was admitted to the local hospital in [place] in September 2021. Subsequently she had few more hospitalizations in [place]. During the September throughNovember 2021 time. Patient was diagnosed with endometritis based on an ultrasound of the pelvis which showed a 8.4 x 7.6 x 7.2 cm intrauterine fluid collection. There was no pelvic fluid. Patient's cultures from that particular time are not known to me however subsequently in November 2021 she had E coli, Lisa glabrata, Klebsiella pneumoniae and Enterobacter cloacae. Enterobacter cloacae was imipenem and ertapenem resistant but susceptible to cefepime Cipro and Bactrim. E coli and Klebsiella were resistant only to ampicillin and cefazolin but susceptible to other drugs. She was treated with 1-2 dosesof fluconazole and also treated with levofloxacin, Augmentin. She received numerous courses of antibiotics at that time. She continued to have failure to thrive and ultimately moved to [place] in December. In December she was evaluated at the [facility]. She had an ultrasound of the pelvis which show ed endometrial cavity fluid. She was also noted to have some mobile echodensities/debris in the bladder. There was no pelvic free fluid. Patient was given a course of metronidazole for 10 days and 2 doses of fluconazole as is the mg as needed [facility]. 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 This is an individual biopsy thatwas performed. Subsequently because of failure to thrive and concern for persistent pneumonitis patient was seen by supervisor cemetery workers earlier this month. She underwent evaluation by Dr. Fabian. Vaginal examination showed purulent discharge from the cervical os. Cultures from the endometrial biopsy grew Morganella, Streptococcus anginosus, Klebsiella, E coli and Streptococcus constellatus on 05/10/2022. Patient wasplaced on levofloxacin 750 mg once daily. On 05/13/2022 she presented to the [facility] ED with altered mental status. She was subsequently admitted to [facility]. Her blood pressure was noted to be 86 x 56. While in the hospital she received vancomycin, levofloxacin, cefepime and had a creatinineof 1.04. She was subsequently dismissed with the levofloxacin 750 mg daily. Approximately a week after dismissal patient started having multiple emesis per day. This has persisted. She also now has loose watery diarrhea. Patient has some urinary and bowel incontinence. Patient denies any new fevers. There is no clear evidence of dysuria or frequency. Although the patient's daughter remains concerned about a UTI. Of note a creatinine on 05/23/2022 was done for an MRI that was planned for 05/23/2022. That creatinine was 1.8 food. MRI of the pelvis showed that the previously noted dilatation of the endometrial cavity had resolved. Some T2 dark lines about the endometrium were felt to be secondary to scarring. Within the uterine fundus there was thickness of the endometrium about 2.7 cm with irregular appearance. Recommendation was to correlate with hysteroscopy. Of note patient did not have a pathology done during her recent endometrial biopsy on 05/10/2022. Because of ongoing emesis, patient was transitioned to Bactrim double-strength 1 p.o. q.12 hours on 05/26/2022 which she has only taken once daily due to her emesis and failure to thrive. Patient was referred to Infectious diseases to evaluate her for ongoing concern for endometritis. Patient's daughter indicates that her blood sugars have been running high. PAST MEDICAL HISTORY The following portions of the patient's history were reviewed and updated as appropriate: allergies,current medications, family history, medical history, social history, surgical history and problem list. ALLERGIES Allergies Allergen Reactions Ibuprofen GI intolerance, Nausea And Vomiting and Swelling Aspirin Nausea Only and GI intolerance Beta Carotene GI intolerance Desmopressin Nausea Only Depends on brand, has been taking REVIEW OF SYSTEMS REVIEW OF SYSTEMS OBJECTIVE VITAL SIGNS Weight 44.5 kg PHYSICAL EXAM Lungs: Clear Heart: S1 & S2 are within normal limits. No murmurs. Abdomen: soft, non-tender, no masses or hepatosplenomegaly. Skin: no rash General: Cachectic female who is not very communicative. 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 Seems extremely frail. DIAGNOSTICS I have reviewed diagnostics. Studies of note include: No lab exists for component: ASTTOT CrCl cannot be calculated (Patient's most recent lab result is older than the maximum 7 days allowed.). No results found for: QTCINT, CODEDDIAG MICROBIOLOGY as per HPI. RADIOLOGY No results found. ASSESSMENT / PLAN IMPRESSION Failure to thrive likely multifactorial including rule out acute kidney injury, dehydration, C difficile infection Endometritis, status post appropriate antimicrobial therapy no clear evidence of ongoing infection Diarrhea rule out C difficile infection CVA x2 May 2021 and August 2021 and multiple chronic infarcts per recent CT scan, 05/14/2022 Type 2 diabetes DISCUSSION I discussed with the patient's daughter that I am concerned about her failure to thrive. Her creatinine on 05/23 was 1.84. Given her weight of 44.5 kg, ongoing emesis and diarrhea, and recent Bactrim use, I am afraid that she probably has worsened the kidney function. Given her extensive antibiotic exposure with the new diarrhea will need to rule out C difficile. I discussed with the patient's daughter that patient needs to be admitted for further evaluation. In regards to the endometritis, she has had an appropriate course of antibiotics with the levofloxacin and Bactrim. Her emesis could certainly be secondary to antibiotic adverse effect. She was on high-dose levofloxacin which could have contributed to some of her symptoms although she did receive levofloxacin previously this year. Levofloxacin can certainly contribute to altered mental status. But other causes for her emesis will need to be evaluated. Discussed with the medical staff services manager inspector balance wheel motion. She has been accepted for admission at [facility]. Patient is stable enough for direct admission. RECOMMENDATIONS Admission to the hospital Check CBC electrolytes, blood cultures, stool C difficile PCR Would recommend discontinuing antibiotics If after admission and initial lab there is concern for infection, please consult inpatient Infectious Disease is service. Treatment plan reviewed with Ms. Guerrero's family. They expressed understanding. All questions answered to their satisfaction. Thank you for the consult. DIAGNOSES #1 Infection Urinary Tract #2 Endometritis ORDERS No orders of the defined types were placed in this encounter. Monika Martinez M.D. documented in this encounter Plan of Treatment Upcoming Encounters Date Type Specialty Care Team Description 07/01/2022 Clinical Communication Admitting/Central Scheduling 07/04/2022 Comprehensive Visit Neurology Zelalem Nicole M.D. [address] [place] [address] 07/13/2022 Office Visit Gynecology Lizy Fabian M.D. [address] [place] [phone] documented as of this encounter Visit Diagnoses Diagnosis Infection Urinary Tract Endometritis documented in this encounter Care Teams Impregnator And Drier Helper Relationship Specialty Start Date End Date Elsewhere, Pcp PCP - General Internal Medicine 06/03/22 documented as of this encounter
--- OUTSIDE RECORDS SUMMARY | 2022-06-10 13:02 | XMS_ITS | Encounter Summary ---
:1960 Author Organization [facility] Address [address] [place] [address] Care Team Providers Name Role Phone Unavailable Primary Care Provider Unavailable Encounter Details Date Type Department Care Team Description 12/17/2021 Abstract [facility] CARLITA Bustillos ea Provider, Historical, [address] [facility] CARLITA SÁNCHEZ [phone] [place], [place] [address] [phone] [place] [address] Social History Tobacco Use Types Packs/Day Years Used Date Smoking Tobacco: Never Smokeless Tobacco: Never Sex Assigned at Date Recorded Not on file documented as of this encounter Plan of Treatment Upcoming Encounters Date Type Specialty Care Team Description 07/01/2022 Clinical Communication Admitting/Central Scheduling 07/04/2022 Comprehensive Visit Neurology Zelalem Nicole M.D. [address] [place] [address] 07/13/2022 Office Visit Gynecology Lizy Fabian M.D. [address] [place] [address] documented as of this encounter Visit Diagnoses Not on filedocumented in this encounter
--- OUTSIDE RECORDS SUMMARY | 2022-06-10 13:02 | XMS_ITS | Encounter Summary ---
:1960 Author Organization [facility] Address [address] [place] [address] Care Team Providers Name Role Phone Elsewhere, Pcp Primary Care Provider Unavailable Reason for Visit Reason Comments Communication Encounter Details Date Type Department Care Team Description 05/26/2022 Clinical Communication Department of Lizy Fabian mmunication Obstetrics and Ruth Ann Solorzano Gynecology in [address] [place], [place] [address] [place] [phone] [place], [place] [phone] (Work) [phone] Social History Tobacco Use Types Packs/Day Years Used Date Smoking Tobacco: Never Smokeless Tobacco: Never Alcohol Use Standard Drinks/Week Comments Never 0 (1 standard drink = 0.6 oz pure alcoho l) Sex Assigned at Date Recorded Not on file documented as of this encounter Miscellaneous Notes Telephone Encounter - Szuanna Krause - 05/27/2022 3:23 PM CDT Patients daughter called to schedule appointment for mid-June with Dr. Fabian. There was nothing available for mid-June but patient is scheduled on July [address] Fabian. Patient was encouraged to call back for cancels but wanted to ask Dr. Fabian if there would be something sooner. Thankyou Telephone Encounter - Lizy Fabian M.D. - 05/26/2022 5:56 PM CDT I called Mikala to discuss her mother's vomiting. As stated in the nursing note the vomiting started 4 days after she started the Levaquin. She is wondering if this is caused by the antibiotics. She reports her mother is still making urine and tolerating small amounts of food. I first of all encouraged Mikala to add Pedialyte and or Gatorade to her mother's diet. We want to avoid dehydration and I gave Mikala strict instructions to take her mother to the emergency department if she starts exhibiting decreased urine output, no improvement or signs of altered mental status. I reviewed the MRI with Mikala which demonstrated no evidence of masses outside of the uterus or signs of infection outside of the uterus. The uterus shows decreased distension. This is reassuring. Plan: -Discontinue Levaquin -Start Bactrim, BID. Will continue until Oneyda sees infectious disease on 06/03 -Mikala will continue to monitor her mother's symptoms and increase fluids. Mikala will bring her mother to the ED if she has concerns. -Return visit with me in mid June/early July -Mikala will reach out to her mother's Systems Accountant if her mother's vomiting persists. Mikala voiced understanding and agreement with the plan. Telephone Encounter - Tatianna Curry, R.N. - 05/26/2022 4:09 PM CDT SUBJECTIVE CHIEF COMPLAINT / REASON FOR CALL Symptomatic after taking Levaquin ASSESSMENT Patient's daughter called to discuss patient's symptoms. Patient has been prescribed Levaquin for treatment of a positive endometrial culture. 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 Fabian 05/10/22. Since day 4 of taking the prescription patient has been vomiting twice a day. Patient's daughter stated patient is not having lightheadedness or dizziness, patient is urinating and the urine is dark but not super dark. Patient developed a rash on the neck. Patient denies fever. 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 Patient's daughter stated blood sugars have been steadied and has been monitoring closely for hypoglycemia. Patient's daughter has been holding insulin. Patient instructed by endocrinology to hold Jardiance due to symptoms of vomiting. Patient is taking Metformin only. The patient's daughter has been pushing Pepto Bismol and Claritin in the patient. Patient's daughter stated she has been able to ingest fluids. Yesterday the patient was able to keep cereal and a fruit cup down but after dinner the patient threw up the meal of chili and rice. Patient had taken the Levaquin dose prior to throwing up the meal. Patient's daughter is wondering if the Levaquin is causing this vomiting and if the mother could continue taking the medication. The patient's daughter has held today's dose. Patient has not vomited today yet. Patient's daughter has been giving Pedialyte for rehydration. Patient's daughter is wondering if the Levaquin should be stopped if the vomiting is a sign of an allergic reaction to the medication. Also, the patient's daughter is unsure how much of medication the patient has absorbed with all the vomiting they have had and if the mother needs more treatment. PLAN I encouraged the patient's daughter to have a low threshold to have the patient seen in the emergency department. Currently, the patient is stable and patient's daughter will monitor closely. Dr. Fabian or someone from her team will reach out to the patient for recommendations. Disposition/Recommendation: notified provider and awaiting recommendations. Information/Education: patient/caller able to teach back. Caller agreeable to plan of care: yes. The following references were used: nursing clinical judgement. Telephone Encounter - Nay Hernandez R.N. - 05/26/2022 3:30 PM CDT LMTCB- SUBJECTIVE CHIEF COMPLAINT / REASON FOR CALL Communication ASSESSMENT Oneyda started Levaquin for 14 days 05/12/22 - 05/26/22. PLAN Assessment to be sent to Dr. Fabian. Disposition/Recommendation: notified provider and awaiting recommendations. Information/Education: patient/caller able to teach back. Caller agreeable to plan of care: yes. The following references were used: nursing clinical judgement. Telephone Encounter - NathanPatsy - 05/26/2022 2:14 PM CDT Patient's daughter calling and stating her mother has been vomiting for about 5 days and wonders if the antibiotics might be causing the nausea and vomiting. It was prescribed for a uterine infection. Patients daughter also tried getting a hold of patients primary but they are out of office. Patient was already underweight and continues to loose weight and she is a diabetic. Please call today. Thank you documented in this encounter Plan of Treatment Upcoming Encounters Date Type Specialty Care Team Description 07/01/2022 Clinical Communication Admitting/Central Scheduling 07/04/2022 Comprehensive Visit Neurology Zelalem Nicole M.D. [address] [place] [address] 07/13/2022 Office Visit Gynecology Lizy Fabian M.D. [address] [place] [address] documented as of this encounter Visit Diagnoses Not on filedocumented in this encounter Additional Health Concerns Infection Onset Date Last Indicated Resolved Time COVID19 Pending 06/04/2022 06/04/2022 06/04/2022 9:17 AM CDT documented as of this encounter Care Teams Coding Support Specialist Relationship Specialty Start Date End Date Elsewhere, Pcp PCP - General Internal Medicine 06/03/22 documented as of this encounter
--- OUTSIDE RECORDS SUMMARY | 2022-06-10 13:02 | XMS_ITS | Encounter Summary ---
:1960 Author Organization [facility] Address [address] [place] [address] Care Team Providers Name Role Phone None Reported, Pcp Primary Care Provider Unavailable Encounter Details Date Type Department Care Team Description 05/19/2022 Clinical Communication RST RO Gela Wong L.G.S.W., M.S.W. Social History Tobacco Use Types Packs/Day Years Used Date Smoking Tobacco: Never Smokeless Tobacco: Never Alcohol Use Standard Drinks/Week Comments Never 0 (1 standard drink = 0.6 oz pure alcoho l) Sex Assigned at Date Recorded Not on file documented as of this encounter Miscellaneous Notes Telephone Encounter - Gela Guaman L.G.S.W., M.S.W. - 05/19/2022 3:45 PM CDT Patient's daughter, Mikala Riggs, contacted the [employer] work lobby regarding [facility] set up, as she wasunder the impression social work would be in contact with her to set this up. [employer] work returned the call of the Mikala. There was no answer and the VM box is full. Social work was not able to leave a and will call again at another time. documented in this encounter Plan of Treatment Upcoming Encounters Date Type Specialty Care Team Description 07/01/2022 Clinical Communication Admitting/Central Scheduling 07/04/2022 Comprehensive Visit Neurology Zelalem Nicole M.D. [address] [place] [address] 07/13/2022 Office Visit Gynecology Lizy Fabian M.D. [address] [place] [address] documented as of this encounter Visit Diagnoses Not on filedocumented in this encounter Care Teams Tax Investigator Relationship Specialty Start Date End Date None Reported, Pcp PCP - General Family Medicine 05/13/22 documented as of this encounter
--- OUTSIDE RECORDS SUMMARY | 2022-06-10 13:02 | XMS_ITS | Encounter Summary ---
:1960 Author Organization [facility] Address [address] [place] [address] Care Team Providers Name Role Phone None Reported, Pcp Primary Care Provider Unavailable Encounter Details Date Type Department Care Team Description 05/23/2022 Documentation RST RO SWK Felisa Castellanos L.I.C. S.Alexa., M.S.W. Social History Tobacco Use Types Packs/Day Years Used Date Smoking Tobacco: Never Smokeless Tobacco: Never Alcohol Use Standard Drinks/Week Comments Never 0 (1 standard drink = 0.6 oz pure alcoho l) Sex Assigned at Date Recorded Not on file documented as of this encounter Progress Notes Felisa Castellanos L.I.C.SElba., M.S.W. - 05/23/2022 3:13 PM CDT Progress Note SUBJECTIVE Daughter has guardianship authority to act on patient's behalf. Copy of guardianship is in patient'schart. Daughter reports that patient had a brain tumor resected at [facility] back in 1997, which affected her vision and cognitive abilities. Daughter reports that patient has since had several strokes and was recently diagnosed with Type 2 Diabetes. Patient lived in [place] for 15 years. Last year her health began to decline to the point she went to [place] to help her and after 3 months she broughtpatient back to [place]. Since then, patient has been hospitalized 4 times at the [facility] in [place] and had home health care services for brain rehab after one of her hospitalizations. Daughter states that patient is now living with her in [place], and they are in the process of establishing primary care with [facility] or another local health system. Daughter reports that patient no longer has services at home and her cognitive and physical condition continues to decline. She explains that patient was receiving HHC from [facility] until they no longer had enough staffing to continue services. Daughter requests to receive information on skilled providers in her area. family service caseworker provided instructions on how to search Medicare.gov website for a list of group home facilities and home health providers. Daughter is no longer able to work to take care of patient and reported living on what is left of her savings. Cl[employer] Roll Winder supported daughter in getting mom the PCP in order to move forward with requesting in-home services. Daughter verbally demonstrates understanding and agreement to settle on a PCP as soon as possible. Daughter explains that she reached out to the [place] and the [facility] for resources; however, she reports frustration with being sent back and forth between the two government entities as she attempts to getbenefits and services for mom. Daughter reports completing multiple applications for services such as opening a CADI waiver for patient. Daughter reports that patient was already assessed for [place] Choices by the county worker, but was informed that because patient has VA benefits, she does not qualify for the CADI waiver. Daughter further demonstrates frustration because she states that mom had many ofthe same benefits while living in [place]. Daughter is also awaiting results from a background check to become a radiology assistant, (BIOMATHEMATICIAN) for her mother. Cloth Roll Winder supported daughter in contacting the worker who completed the [place] to request assistance in coordinating benefit coverage with the [place]. Daughter verbally demonstrated agreement to advocate for patient by following up with the family service caseworker. CHIEF COMPLAINT / REASON FOR VISIT Patient is in need of home healthcare services including PT/OT and speech therapy post hospital discharge. HISTORY OF PRESENT ILLNESS 1. Type 2 diabetes 2. Panhypopituitary 3. Chronic endometritis 4. Recent UTIs 5. Stage III CKD 6. Recent CVA events 7. Chronic cognitive impairment 8. Hypertension 9. Hyperlipidemia Please see EMR for further history of present illness. OBJECTIVE Medicare Parts [place] B [place] Medicaid ASSESSMENT / PLAN ASSESSMENT Patient was not assessed. She was asleep and did not wake up during this visit. Patient's daughter appears reliable, concern, and insightful. She seems to be planning appropriately for patient. PLAN Patient's daughter is working to establish PCP at [facility] or a health system near her home in [place], [place]. Patient's daughter will continue to work with the county worker and the VA to determine patient's level of coverage and to start services. Social work remains available to assist with questions and resources as needed. Patient's daughter reflects understanding and agreement with no further questions for social work atthis time. documented in this encounter Plan of Treatment Upcoming Encounters Date Type Specialty Care Team Description 07/01/2022 Clinical Communication Admitting/Central Scheduling 07/04/2022 Comprehensive Visit Neurology Zelalem Nicole M.D. [address] [place] [address] 07/13/2022 Office Visit Gynecology Lizy Fabian M.D. [address] [place] [address] documented as of this encounter Visit Diagnoses Not on filedocumented in this encounter Care Teams Tongue Binder Relationship Specialty Start Date End Date None Reported, Pcp PCP - General Family Medicine 05/13/22 documented as of this encounter
--- OUTSIDE RECORDS SUMMARY | 2022-06-10 13:02 | XMS_ITS | Encounter Summary ---
:1960 Author Organization [facility] Address [address] [place] [address] Care Team Providers Name Role Phone None Reported, Pcp Primary Care Provider Unavailable Encounter Details Date Type Department Care Team Description 05/25/2022 Clinical Communication Department of Lizy Fabian, Obstetrics and MJoseph Gynecology in [address] [place] [address] [place] [phone] [place], [place] [phone] (Work) [phone] Social History Tobacco Use Types Packs/Day Years [...] Comprehensive Visit Neurology Zelalem Nicole M.D. [address] [place] [phone] 07/13/2022 Office Visit Gynecology Lizy Fabian M.D. [address] [place] [phone] documented as of this encounter Visit Diagnoses Not on filedocumented in this encounter Care Teams Winch Runner Relationship Specialty Start Date End Date None Reported, Pcp PCP - General Family Medicine 05/13/22 documented as of this encounter
--- OUTSIDE RECORDS SUMMARY | 2022-06-10 13:02 | XMS_ITS | Encounter Summary ---
:1960 Author Organization [facility] Address [address] [place] [address] Care Team Providers Name Role Phone None Reported, Pcp Primary Care Provider Unavailable Reason for Referral Outpatient (Routine) - Closed Specialty Diagnoses / Procedures Referred By Contact Refer red To Contact Infectious Diseases Diagnoses Infection Urinary Tract Endometritis Lizy Fabian [facility] Ruth Ann [address] [place] [phone] Referral ID Status Reason Start Date Expiration Date Visits V isits Requested Authorized [id number] Closed Specialty 05/18/2022 05/18/2023 1 1 Services Required Encounter Details Date Type Department Care Team Description 05/18/2022 Orders Only Department of Lizy Fabian, Infection Urinary Tract (Primary Dx); Obstetrics and M.D. Endometritis Gynecology in [address] [place] [address] [place] [address] [place], [place] [phone] (Work) [phone] Social History Tobacco Use Types Packs/Day Years [...] Comprehensive Visit Neurology Zelalem Nicole M.D. [address] [place] [address] [place] [address] 07/13/2022 Office Visit Gynecology Lizy Fabian M.D. 200 [place] [address] Scheduled Referrals Name Type Priority Associated Order Schedule Diagnoses Infectious Disease - Outpatient Referral Routine Infection Uri nary Expected: General consult Tract 05/18/2022 (clinic) Endometritis (Approximate), Expires: 08/17/2023 documented as of this encounter Visit Diagnoses Diagnosis Infection Urinary Tract - Primary Endometritis documented in this encounter Care Teams Broomcorn Press Feeder Relationship Specialty Start Date End Date None Reported, Pcp PCP - General Family Medicine 05/13/22 documented as of this encounter
--- OUTSIDE RECORDS SUMMARY | 2022-06-10 13:02 | XMS_ITS | Encounter Summary ---
:1960 Author Organization [facility] Address [address] [place] [address] Care Team Providers Name Role Phone None Reported, Pcp Primary Care Provider Unavailable Encounter Details Date Type Department Care Team Description 05/20/2022 Clinical Communication RST Gela Wong L.G.S.W., M.S.W. Social History Tobacco Use Types Packs/Day Years Used Date Smoking Tobacco: Never Smokeless Tobacco: Never Alcohol Use Standard Drinks/Week Comments Never 0 (1 standard drink = 0.6 oz pure alcoho l) Sex Assigned at Date Recorded Not on file documented as of this encounter Miscellaneous Notes Telephone Encounter - Gela Guaman L.G.S.W., M.S.W. - 05/20/2022 12:50 PM CDT Patient's daughter, Mikala Riggs, contacted the [employer] work lobby 05/19/22 regarding HHC set up, jayshree was under the impression social work would be in contact with her to set this up. [employer] work was unable to reach Mikala on 05/19/22. [employer] work attempted to call and reach Mikala again. There was no answer and the VM box is full. Social work was not able to leave a VM. If patient or Mikala call regarding HHC services, they should be directed back to the PCP to request HHC orders. documented in this encounter Plan of Treatment Upcoming Encounters Date Type Specialty Care Team Description 07/01/2022 Clinical Communication Admitting/Central Scheduling 07/04/2022 Comprehensive Visit Neurology Zelalem Nicole M.D. 200 [place] [address] 07/13/2022 Office Visit Gynecology Lizy Fabian M.D. [address] [place] [address] documented as of this encounter Visit Diagnoses Not on filedocumented in this encounter Care Teams Class B Truck Driver Relationship Specialty Start Date End Date None Reported, Pcp PCP - General Family Medicine 05/13/22 documented as of this encounter
--- OUTSIDE RECORDS SUMMARY | 2022-06-10 13:02 | XMS_ITS | Encounter Summary ---
:1960 Author Organization [facility] Address [address] [place] [address] Care Team Providers Name Role Phone Unavailable Primary Care Provider Unavailable Encounter Details Date Type Department Care Team Description 05/12/2022 Orders Only Department of Obstetrics Lizy Fabian M.D. and Gynecology in [address] [place] [address] [place] [phone] [place] [phone] Social History Tobacco Use Types Packs/Day Years Used Date Smoking Tobacco: Never Smokeless Tobacco: Never Sex Assigned at Date Recorded Not on file documented as of this encounter Plan of Treatment Upcoming Encounters Date Type Specialty Care Team Description 07/01/2022 Clinical Communication Admitting/Central Scheduling 07/04/2022 Comprehensive Visit Neurology Zelalem Nicole M.D. [address] [place] [phone] 07/13/2022 Office Visit Gynecology Lizy Fabian M.D. [address] [place] [phone] documented as of this encounter Visit Diagnoses Not on filedocumented in this encounter
--- OUTSIDE RECORDS SUMMARY | 2022-06-10 13:02 | XMS_ITS | Encounter Summary ---
:1960 Author Organization [facility] Address [address] [place] [address] Care Team Providers Name Role Phone None Reported, Pcp Primary Care Provider Unavailable Reason for Referral Outpatient (Routine) - Authorized Specialty Diagnoses / Procedures Referred By Contact Refer red To Contact Infectious Diseases Diagnoses Endometritis [facility] Ruth Ann, M.B.A. 200 [place] [address] Referral ID Status Reason Start Expiration Visits Visits Date Date Requested Authorized [id number] Authorized Specialty 05/17/2022 05/17/2023 1 1 Services Required Reason for Visit Reason Comments Pre-visit Testing Orders Encounter Details Date Type Department Care Team Description 05/17/2022 Clinical Communication RST TITA Jon, Pre-visit Testing [address] [facility] Addy Laureano [place], [place] Ruth Ann, M.B.A. [address] [place] [phone] Social History Tobacco Use Types Packs/Day Years [...] Comprehensive Visit Neurology Zelalem Nicole M.D. 200 [place] [address] 07/13/2022 Office Visit Gynecology Lizy Fabian M.D. 200 [place] [address] Scheduled Referrals Name Type Priority Associated Diagnoses Order [facility] Infectious Disease Outpatient Referral Routine Endometritis Ex pected: - General consult 05/17/2022 (clinic) (Approximate), Expires: 08/16/2023 documented as of this encounter Visit Diagnoses Diagnosis Endometritis - Primary documented in this encounter Care Teams Project Administrator Relationship Specialty Start Date End Date None Reported, Pcp PCP - General Family Medicine 05/13/22 documented as of this encounter
--- OUTSIDE RECORDS SUMMARY | 2022-06-10 13:02 | XMS_ITS | Encounter Summary ---
:1960 Author Organization [facility] Address [address] [place] [address] Care Team Providers Name Role Phone Unavailable [...] Visit Neurology Zelalem Nicole M.D. [address] [place] [phone] 07/13/2022 Office Visit Gynecology Lizy Fabian M.D. [address] [place] [address] documented as of this encounter Procedures Procedure Name Priority Date/Time Associated Diagnosis Comme nts MR BRAIN WITHOUT Routine 06/29/1998 10:31 AM Resu lts for this AND WITH IV MARINE UNDERWRITER procedure are i n CONTRAST the results section. HXGENERAL PATHOLOGY Routine 06/24/1998 11:14 AM R esults for this REPORT CDT procedure are i n the results section. documented in this encounter Results MR Brain without and with IV Contrast (06/29/1998 10:31 AM MARINE UNDERWRITER) Anatomical Region Laterality Modality Head, Brain N/A Magnetic Resonance Specimen (Source) Anatomical Collection Method Collection Time Re ceived Time Location / / Volume Laterality 06/29/1998 10:31 AM MARINE UNDERWRITER Narrative 06/29/1998 12:31 PM MARINE UNDERWRITER 29-Jun-1998 10:31:00 ??Exam: MRI Hd wo&w Indications: [...] [id number]. [id number] 29-Jun-1998 12:31 Mega Hall M.D. IMDottie MRI PROCEDURES Hx general Pathology Report (06/24/1998 11:14 AM CDT) Specimen Anatomical Collection Method Collection Time Receive d Time (Source) Location / / Volume Laterality 06/24/1998 11:14 06/24/1998 AM CDT 11:14 AM CDT Narrative [facility] [place] - 06/24/1998 11:14 AM CDT [id number] Surgical Pathology Requested By: ? Mega Hall M.D. ? ([id number]) ?? TISSUE DESCRIPTION: ?? Tissue from the brain (left frontal, 1 x 0.4 x 0.2 cm, aggregating 2.4 x 1.2 x 0.2 cm, ?? aggregating 3.5 x 3.5 x 1 cm) ?? [id number] A1, A2, A3, A4 ?? DIAGNOSIS: ?? [...] Dr. RICE ?? Flori. Procedure Note 11/24/2017 [id number] Surgical Pathology Requested By: Mega Hall M.D. ([id number]) TISSUE DESCRIPTION: Tissue from the brain (left frontal, 1 x 0.4 x 0.2 cm, aggregating 2.4 x 1.2 x 0.2 cm, aggregating 3.5 x 3.5 x 1 cm) [id number] A1, A2, A3, A4 DIAGNOSIS: Brain, left frontal, excisional biopsy: Chondroid chordoma. Seen with Dr. Kahlil Ruby and Dr. Gt Darnell. COMMENT: Immunohistochemical studies performed o n paraffin embedded tissue reveal that the tumor cells do not react with antibodies to keratin . Although chondroid chordomas are typically positive for keratin, the location and clinical presentation are supportive of the above diagnosis. [id number] Vivi Zhang M.D.:beverley PRELIMINARY FROZEN SECTION CONSULTATION : Brain, left frontal, biopsy: Chondroid proliferation. Hold to classify. Seen with Dr. DWAYNE Ruby. Mega Hall M.D. LAB PATHOLOGY/CYTOLOGY ORDER STEVE Performing Organization Address City/State/ZIP Code Phon e Number [facility] - [address] [place], [place] [address] [facility] documented in this encounter Visit Diagnoses Not on filedocumented in this encounter
--- OUTSIDE RECORDS SUMMARY | 2022-06-10 13:02 | XMS_ITS | Encounter Summary ---
:1960 Author Organization [facility] Address [address] [place] [address] Care Team Providers Name Role Phone Elsewhere, Pcp Primary Care Provider Unavailable Encounter Details Date Type Department Care Team Description 06/04/2022 Orders Only Division of Endocrinology in [place] Ruth Ann 200 [facility] [address] [place] [address] [place], [place] [phone] (Wo rk) Social History Tobacco Use Types [...] Visit Neurology Zelalem Nicole M.D. [address] [place] [address] 07/13/2022 Office Visit Gynecology Lizy Fabian M.D. [address] [place] [phone] documented as of this encounter Visit Diagnoses Not on filedocumented in this encounter Additional Health Concerns Infection Onset Date Last Indicated Resolved Time COVID19 Pending 06/04/2022 06/04/2022 06/04/2022 9:17 AM CDT documented as of this encounter Care Teams [employer] Social Studies Teacher Relationship Specialty Start Date End Date Elsewhere, Pcp PCP - General Internal Medicine 06/03/22 documented as of this encounter
--- OUTSIDE RECORDS SUMMARY | 2022-06-10 13:02 | XMS_ITS | Encounter Summary ---
:1960 Author Organization [facility] Address [address] [place] [address] Care Team Providers Name Role Phone Unavailable Primary Care Provider Unavailable Reason for Visit Reason Comments Cyst Triage Encounter Details Date Type Department Care Team Description 03/01/2022 Clinical Communication Department of [facility] Obstetrics and Provider Gynecology in [address] [place] [address] Social History Tobacco Use Types Packs/Day Years Used Date Smoking Tobacco: Never Smokeless Tobacco: Never Sex Assigned at Date Recorded Not on file documented as of this encounter Miscellaneous Notes Telephone Encounter - Patsy Evans - 03/09/2022 9:18 AM CDT LMTCB x 2 Telephone Encounter - Patsy Evans - 03/04/2022 1:56 PM CDT LMTCB- Please help patient schedule with any VENTILATING EXPERT including Residents per TB review Telephone Encounter - Nati Gomez - 03/03/2022 12:59 PM CDT 14 pages of outside medical records scanned into Document Viewer. Imaging pushed and viewable in QREADS. Telephone Encounter - Nati Gomez - 03/03/2022 7:12 AM CDT Fax sent to [facility] [place] requesting medical records and imaging (fax # [phone]). Telephone Encounter - Patsy Evans - 03/01/2022 5:21 PM CDT Facility where imaging was done: [place] in [place] Type of imaging: Ultrasound Date of imaging: Oct 2021 OSM viewable in Care Everywhere? [] Yes [x] No OSM viewable in Document Viewer? [] Yes [x] No Patient has until: 03/31/2022 documented in this encounter Plan of Treatment Upcoming Encounters Date Type Specialty Care Team Description 07/01/2022 Clinical Communication Admitting/Central Scheduling 07/04/2022 Comprehensive Visit Neurology Zelalem Nicole M.D. 200 [place] [address] 07/13/2022 Office Visit Gynecology Lizy Fabian M.D. [address] [place] [address] documented as of this encounter Visit Diagnoses Not on filedocumented in this encounter
--- OUTSIDE RECORDS SUMMARY | 2022-06-10 13:02 | XMS_ITS | Encounter Summary ---
:1960 Author Organization [facility] Address [address] [place] [address] Care Team Providers Name Role Phone None Reported, Pcp Primary Care Provider Unavailable Reason for Visit Reason Comments Communication Encounter Details Date Type Department Care Team Description 05/12/2022 Clinical Communication Department of Lizy Fabian mmunication Obstetrics and Ruth Ann Solorzano Gynecology in [address] [place], [place] [address] [place] [phone] [place], [place] [phone] (Work) [phone] Social History Tobacco Use Types Packs/Day Years Used Date Smoking Tobacco: Never Smokeless Tobacco: Never Sex Assigned at Date Recorded Not on file documented as of this encounter Miscellaneous Notes Telephone Encounter - Lizy Fabian M.D. - 05/12/2022 5:30 PM CDT I called Mikala (Oneyda's daughter) to discuss the urine and endometrial culture results. The urine and endometrial culture culture is growing MORGANELLA MORGANII. I discussed this result with the on-call infectious disease fellow who was fairly concerned about the fact that the same bacteria was growing in the uterus and in the urine. She agreed that the patient should be seen in Infectious Disease as soon as possible and agreed with MRI imaging. As of right now the patient is scheduled to see infectious disease May 27 and the MRI scheduled for May 30. After discussion with the Infectious Disease fellow and review of the susceptibilities patient was placed on 750 mg of levofloxacin daily. I will contact the Infectious Disease fellow tomorrow morning to see if the patient can be added on to clinic. I reiterated the importance to Mikala about scheduling the remaining consult, whovoiced understanding and will wait to hear from me tomorrow. All questions answered to the best my ability. Telephone Encounter - Patsy Evans - 05/12/2022 12:39 PM CDT Patient daughter calling in and wondering if the testing( MRI or consults could be done closer to [facility] at another [place] facility. documented in this encounter Plan of Treatment Upcoming Encounters Date Type Specialty Care Team Description 07/01/2022 Clinical Communication Admitting/Central Scheduling 07/04/2022 Comprehensive Visit Neurology Zelalem Nicole M.D. [address] [place] [address] 07/13/2022 Office Visit Gynecology Lizy Fabian M.D. [address] [place] [address] documented as of this encounter Visit Diagnoses Not on filedocumented in this encounter Care Teams Warehouse Analyst Relationship Specialty Start Date End Date None Reported, Pcp PCP - General Family Medicine 05/13/22 documented as of this encounter
--- OUTSIDE RECORDS SUMMARY | 2022-06-10 13:02 | XMS_ITS | Encounter Summary ---
:1960 Author Organization [facility] Address [address] [place] [address] Care Team Providers Name Role Phone None Reported, Pcp Primary Care Provider Unavailable Encounter Details Date Type Department Care Team Description 05/25/2022 Community Orders [facility], Infarction Cerebral (HCC) (Primary Dx); [facility] AND Ruth Ann Ruggiero Personal History Of Other Mental And Beh avioral Disorders; CLINICS [address] Panhypopituitarism (HCC); [address] Neoplasm Unspecified Behavior Brain (HCC ); [facility], Other Specifi ed Diabetes Mellitus Without Complications (HCC) [address] [place] [address] [phone] Social History Tobacco Use Types Packs/Day Years [...] Visit Neurology Zelalem Nicole M.D. [address] [place] [phone] 07/13/2022 Office Visit Gynecology Lizy Fabian M.D. [address] [place] [phone] documented as of this encounter Visit Diagnoses Diagnosis Infarction Cerebral (HCC) - Primary Personal History Of Other Mental And Beh avioral Disorders Panhypopituitarism (HCC) Neoplasm Unspecified Behavior Brain (HCC ) Other Specified Diabetes Mellitus Withou t Complications (HCC) documented in this encounter Care Teams Corn Picker Relationship Specialty Start Date End Date None Reported, Pcp PCP - General Family Medicine 05/13/22 documented as of this encounter
--- OUTSIDE RECORDS SUMMARY | 2022-06-10 13:02 | XMS_ITS | Encounter Summary ---
:1960 Author Organization [facility] Address [address] [place] [address] Care Team Providers Name Role Phone Unavailable Primary Care Provider Unavailable Reason for Referral MRI/CAT/PET Scan (Routine) - Closed Specialty Diagnoses / Procedures Referred By Contact Refer red To Contact Radiology Diagnoses Abnormal Ultrasound Endometrium Infection Urinary Tract Lizy Fabian M.D. [facility] Procedures MR Gynecologic Pelvis without and with IV Contrast MR Pelvis without and with IV Contrast [address] [place] [address] Referral ID Status Reason Start Date Expiration Date Visits Requ ested Visits Authorized [id number] Closed 05/10/2022 05/10/2023 1 1 Outpatient (Routine) - Authorized Specialty Diagnoses / Procedures Referred By Contact Refer red To Contact Obstetrics and Lizy Fabian [facility] Ruth Ann [address] [place] [address] Referral ID Status Reason Start Date Expiration Date Visits V isits Requested Authorized [id number] Authorized 05/10/2022 05/09/2025 1 1 Scheduling Instructions With Lizy Fabian only Outpatient (Routine) - Authorized Specialty Diagnoses / Procedures Referred By Contact Refer red To Contact Neurology Diagnoses Unspecified Symptoms And Signs Involving Cognitive Functions Following Unspecified Cerebrovascular Disease Tumor Brain (HCC) Lizy Fabian M.D. [facility] [address] [place] [address] Referral ID Status Reason Start Expiration Visits Visits Date Date Requested Authorized [id number] Authorized Specialty 05/10/2022 05/10/2023 1 1 Services Required Outpatient (Routine) - Authorized Specialty Diagnoses / Procedures Referred By Contact Refer red To Contact Internal Medicine / Diagnoses Diabetes Mellitus Drug Or Chemical Induced With Other Complication (HCC) Incontinence Urinary Unspecified Symptoms And Signs Involving Cognitive Functions Following Unspecified Cerebrovascular Disease [facility]CC) [facility] [address] [place] [phone] Referral ID Status Reason Start Date Expiration Date Visits V isits Requested Authorized [id number] Authorized 05/10/2022 05/10/2023 1 1 Outpatient (Routine) - Closed Specialty Diagnoses / Procedures Referred By Contact Refer red To Contact Endocrinology Diagnoses Diabetes Mellitus Drug Or Chemical Induced With Other Complication (HCC) Lizy Fabian M.D. [facility] [address] [place] [phone] Referral ID Status Reason Start Date Expiration Date Visits Requ ested Visits Authorized [id number] Closed 05/10/2022 05/10/2023 1 1 Reason for Visit Appointment Request (Routine) - Closed Specialty Diagnoses / Procedures Referred By Contact Refer red To Contact Obstetrics and Diagnoses Mass Vagina Gynecology Referral ID Status Reason Start Date Expiration Date Visits Requ ested Visits Authorized [id number] Closed 02/23/2022 02/23/2023 1 1 Encounter Details Date Type Department Care Team Description 05/10/2022 Comprehensive Visit Department of Lizy Fabian Ultrasound Endometrium (Primary Dx); Obstetrics and Ruth Ann Solorzano Diabetes Mellitus Drug Or Chemical Induc ed With Other Complication (HCC); Gynecology in [address] [place] [address] Incontinence Urinary; [place], [place] Unspecified Sy mptoms And Signs Involving Cognitive Functions Following Unspecified Cerebrovascular Disease; [place] [address] Tumor Brain (HCC); [address] [facility] [phone] Infection Urinary Tract [place], [place] (Work) [address] [phone] Social History Tobacco Use Types Packs/Day Years Used Date Smoking Tobacco: Never Smokeless Tobacco: Never Sex Assigned at Date Recorded Not on file documented as of this encounter Consult Notes Lizy Fabian M.D. - 05/10/2022 3:30 PM CDT SUBJECTIVE HISTORY OF PRESENT CONDITION Ms. Guerrero is a 61 y.o. , x2, presenting for evaluation of questionable recurrent uterine abscesses. The patient has a long and somewhat complex medical history. She is here today with her daughter, Mikala, who is her die baker and medical decision maker. 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 The patient then moved to [place] for a long period of time. Mikala reports that her mother suffered at least 2 strokes and was placed in a rehabilitation center. Mikala brings a large amount of records with her today. Upon review the records show that the patient was admitted with pelvic abscesses, which were drained by Interventional Radiology. There was alsoconcern for a urinary tract infection. Previous pap tests and endometrial biopsy demonstrated infection. Specifically, from the [facility] in [place], on 11/23/2019, endometrial biopsy demonstrated the following: Predominantly blood and necroinflammatory debris with scattered fragments of hyalinized inflammatory fibro vascular tissue and scant strips of atrophic endometrial tissue. No evidence of hyperplasia or neoplasia. Records also demonstrate an endometrial biopsy which was positive for enterococci faec yandy, E coli and Klebsiella and yeast. She was placed on antibiotics with no resolution. Mikala reports that her mother has urinary incontinence which is been new over the past year and a half and also intermittent altered mental status which she is concerned is related to the infections. She was also seen at the [facility] in [place] and endometrial biopsy also demonstrated an infectious source. Withinthe last year the patient has been on oral Flagyl, fluconazole, oral Bactrim, oral Augmentin and oral levofloxacin. Mikala also notes that Oneyda has been admitted for complications related to her diabetes and at times has been on IV antibiotics. She has had several pelvic ultrasounds which have demonstrated a fluid collection within the uterus. Mikala does not believe that Oneyda has ever had a hysteroscopy. Mikala denies that her mother has been febrile at home or demonstrated chills. Oneyda has had no vaginal bleeding that Mikala is aware of. PMH: #Diabetes Mellitus Patient's daughter is unsure if patient has type 1 or type 2 diabetes. She has had significant difficulty controlling the patient's blood sugars. She has been admitted for hyperglycemia as well as hypoglycemia. She currently has a glucose monitor patch. No insulin pump. She notes that this diagnosis occurred secondary to long-term steroid use in the setting of her brain tumor treatment. #Stroke #Brain Tumor status post resection PSH: No prior abdominal or pelvic surgeries. -She is up to date on COVID 19 vaccination, pneumococcal vaccination, Tdap and zoster vaccination -She is not currently sexually active. -No family history of suction roller malignancy. MENSTRUAL HISTORY No LMP recorded. HISTORY Past Medical History: Diagnosis Date Stroke (HCC) 08/2021 and 05/2021 Tumor Brain (HCC) Past Surgical History: Procedure Laterality Date OTHER CONVERTED SHX (SEE COMMENT) N/A 06/24/1998 Spinal drainage. Left frontotemporal craniotomy. SOCIAL HISTORY Social History Tobacco Use Smoking Status Never Smokeless Tobacco Never OBJECTIVE VITAL SIGNS There were no vitals filed for this visit. There is no height or weight on file to calculate BMI. PHYSICAL EXAM Constitutional Appearance: She is cachectic. She is ill-appearing. Genitourinary Abnormal external genitalia. Postmenopausal appearance of external genitalia including labia minoraatrophy and shiny appearance to labia majora. No ulceration. . Normal introitus. Vaginal tissue is atrophic. No vaginal discharge found. Cervical exam abnormal. There was a white, purulent discharge coming from the cervical os. No cervical motion tenderness on bimanual.. Uterus is smooth. No adnexal masses palpable. Pulmonary Effort: Pulmonary effort is normal. Abdominal General: Abdomen is flat. Palpations: Abdomen is soft. Tenderness: There is generalized abdominal tenderness. Neurological Gait: Gait abnormal. Comments: Patient in wheelchair. Patient had difficulty maneuvering from wheelchair to examination table and required 2 person assistance. ASSESSMENT / PLAN I discussed with Mikala that I a.m. not sure of what may be causing her mother's recurrent infections. I do believe we should culture the endometrium as this has not been on before. I do think additional imaging in the form of MRI would be beneficial. I also think that to the patient would benefit from a infectious disease consult considering the vast number of antibiotic she has been on within the last year. I also think it would be important for her to see internal Medicine, Endocrinology and Neurology. #1 Diabetes Mellitus As stated above this diagnosis and is etiology is unclear to the patient and her daughter. Order placed for consult with Endocrinology. Hemoglobin A1c, creatinine and fasting glucose ordered. #2 Incontinence Urinary Urine culture obtained via in and out catheter. Will follow-up with patient regarding results. Orderfor Infectious Disease placed. #3 Stroke (HCC) #4 Tumor Brain (HCC) Patient's initial diagnosis and treatment of her brain tumor was here at [facility]. Order placed for consult with Neurology #5 Abnormal Ultrasound Endometrium #6 Infection Urinary Tract Pelvic MRI ordered for evaluation of other pelvic infection. Endometrial culture sent. Will follow up with patient regarding results. Urine culture obtained. Will follow up with patient regarding results Three month return visit ordered. Patient discussed with Dr. Rouse who agreed with the plan Lizy Fabian M.D. documented in this encounter Miscellaneous Notes Result Encounter Note - Chitra Lin, R.N. - 05/12/2022 9:[address] Fabian - Pt seen on 05/10/22. She has not yet scheduled any of the recommended appts/tests such asInfectious Disease/MRI. ANDREA Buenrostro documented in this encounter Plan of Treatment Upcoming Encounters Date Type Specialty Care Team Description 07/01/2022 Clinical Communication Admitting/Central Scheduling 07/04/2022 Comprehensive Visit Neurology Zelalem Nicole M.D. [address] [place] [address] 07/13/2022 Office Visit Gynecology Lizy Fabian M.D. [address] [place] [address] Scheduled Referrals Name Type Priority Associated Diagnoses Order S chedule Endocrinology - Outpatient Routine Diabetes Mellitus Drug Ex pected: Diabetes consult Referral Or Chemical Induced 02/2022 (clinic) With Other (Approximate), Complication (HCC) Expires: 08/09/2023 Community Internal Outpatient Routine Diabetes Mellitus Drug Expected: Medicine - General Referral Or Chemical Induced (clinic) With Other (Approximate), Complication (HC C) Expires: Incontinence Uri nary 08/09/2023 Unspecified Symptoms And Signs Involving Cognitive Functions Following Unspecified Cerebrovascular Disease Tumor Brain (HCC) Neurology - General Outpatient Routine Unspecified Symptoms Expected: consult (clinic) Referral And Signs Involving 02/2022 Cognitive Functions (Approxi mate), Following Unspecified s: Cerebrovascular 08/09/2023 Disease Tumor Brain (HCC) Obstetrics and Outpatient Routine Expected: Gynecology office Referral 08/09/2022 , visit (clinic) Expires: 08/09/2023 documented as of this encounter Procedures Procedure Name Priority Date/Time Associated Diagnosis Comme nts BACTERIAL CULTURE, Routine 05/10/2022 4:57 PM Abnormal Ultraso und Results for this AEROBIC + SUSC CDT Endometrium procedure are in the results section. BACTERIAL CULTURE, Routine 05/10/2022 4:49 PM Incontinence Uri nary Results for this AEROBIC + SUSC, CDT procedure ar e in URINE the results section. documented in this encounter [...] resolved. T2 dark lines about the endometrium (4/25) -- favored to represe nt scarring. Within [...] resolved. T2 dark lines about the endometrium (4/25) -- favored to represe nt scarring. Within [...] LAB BLOOD NON ADD-ON Performing Organization Address City/[facility] Phon e Number [facility] - [address] (ABNORMAL) Creatinine with Estimated GFR (05/23/2022 [...] M.D. LAB BLOOD ADD-ON Performing Organization Address City/State/[facility] Phon e Number [facility] - [address] [place], [place] [address] [facility] [address] (ABNORMAL) Bacterial Culture, Aerobic + Susc (05/10/2022 4:57 PM CDT) Patholo gist Method Time Signature Bacterial MORGANELLA MORGANII 05/17/2022 [...] criteria. Semi-Urgent This is a semi-urgent result [facility] - (PENG) [facility] Specimen Anatomical Collection Method Collection Time Receive d Time (Source) Location / / Volume Laterality Biopsy 05/10/2022 4:57 PM 7:09 (Endometrium) CDT PM CDT Comment: Specimen [...] City/State/ZIP Code Phon e Number [facility] - [address] [place], [place] [address] [facility] [place] [address] Laboratories-[facility] [address] (ABNORMAL) Bacterial Culture, Aerobic + Susc, Urine (05/10/2022 4:49 PM CDT) [facility] gist Method Time Signature Urine Culture MORGANELLA MORGANII 05/12/2022 DTL >100,000 cfu/mL 2:55 PM CDT (A) Specimen Anatomical Collection Method Collection Time Receive d Time (Source) Location / / Volume Laterality Urine (Urine, 05/10/2022 4:49 PM 05/10/20 7:51 Straight CDT PM CDT Catheter) Comment: Specimen Source Site: Urine Organism Antibiotic Method Susceptibility Morganella morganii Ampicillin [...] <=0.5/9.5 mc g/mL: Sulfamethoxazole ESME (MCG/ML) Susceptible Morganella morganii Nitrofurantoin SUSCEPTIBILITY, >64 mcg/mL: Resistant ESME (MCG/ML) Lizy Fabian M.D. LAB MICROBIOLOGY - GENERAL O CLIVE Performing Organization Address City/State/ZIP Code Phon e Number [facility] - [address] [place], [place] [address] [facility] [place] [place] [address] Laboratories-[facility] [address] documented in this encounter Visit Diagnoses Diagnosis Abnormal Ultrasound Endometrium - Primar y Diabetes Mellitus Drug Or Chemical Induc ed With Other Complication (HCC) Incontinence Urinary Unspecified Symptoms And Signs Involving Cognitive Functions Following Unspecified Cerebrovascular Disease Tumor Brain (HCC) Infection Urinary Tract Abnormal Ultrasound Endometrium Infection Urinary Tract documented in this encounter
--- OUTSIDE RECORDS SUMMARY | 2022-06-10 13:02 | XMS_ITS | Encounter Summary ---
:1960 Author Organization [facility] Address [address] [place] [address] Care Team Providers Name Role Phone None Reported, Pcp Primary Care Provider Unavailable Encounter Details Date Type Department Care Team Description 05/18/2022 Clinical Communication Department of Lizy Fabian, Obstetrics and M.DNat Gynecology in [address] [place], [place] [address] [place] [phone] [place], [place] [phone] (Work) [phone] Social History Tobacco Use Types Packs/Day Years Used Date Smoking Tobacco: Never Smokeless Tobacco: Never Alcohol Use Standard Drinks/Week Comments Never 0 (1 standard drink = 0.6 oz pure alcoho l) Sex Assigned at Date Recorded Not on file documented as of this encounter Miscellaneous Notes Telephone Encounter - Ana Nair - 05/18/2022 3:34 PM CDT I called Mrs. Guerrero's daughter to inform her of the appointments we have scheduled for her mother next week. Unfortunately we were unable to get an appointment in Neurology as there are no appointments available, and [facility] denied as she is outside the zoning address they will see for. The [facility] did give me a number to connect her to [facility] for any local [facility]. She did ask about that infectious disease consult which is no longer scheduled, from Dr. Fabian' notes it does sound like this is needed so unsure as to why it was cancelled. Please advise if this infectious disease consult is still needed and if so can you please place a new order so we can schedule? Thanks! Ana documented in this encounter Plan of Treatment Upcoming Encounters Date Type Specialty Care Team Description 07/01/2022 Clinical Communication Admitting/Central Scheduling 07/04/2022 Comprehensive Visit Neurology Zelalem Nicole M.D. [address] [place] [phone] 07/13/2022 Office Visit Gynecology Lizy Fabian M.D. [address] [place] [phone] documented as of this encounter Visit Diagnoses Not on filedocumented in this encounter Care Teams Skein Dyer Relationship Specialty Start Date End Date None Reported, Pcp PCP - General Family Medicine 05/13/22 documented as of this encounter
--- OUTSIDE RECORDS SUMMARY | 2022-06-10 13:02 | XMS_ITS | Encounter Summary ---
:1960 Author Organization [facility] Address [address] [place] [address] Care Team Providers Name Role Phone Unavailable [...] Visit Neurology Zelalem Nicole M.D. [address] [place] [phone] 07/13/2022 Office Visit Gynecology Lizy Fabian M.D. [address] [place] [address] documented as of this encounter Procedures Procedure [...] - 09-Jun-1998 11:20:00 REVISED REPORT 06/09/98 10:55:23 ([id number]) Head CT without contrast show s that [...] - 09-Jun-1998 11:20:00 REVISED REPORT 06/09/98 10:55:23 ([id number]) Head CT without contrast show s that since our examination done earlier today, there has been clearing of the contrast material from the large clival, sellar, and suprasellar region mass. No evidence for hemorrhage. Flecks of calcification with in the tumor. Differential diagnosis includes craniopharyngioma, chordoma, chondrosarcoma. I-117.300; D-106.300 Electronically signed by: Stan Peck MD. [id number] 09-Jun-1998 11: 20 Mega Hall M.D. 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 99mTc Neurolite 21.0mCi Electronically signed by: ?? Natasha Tejeda ?? 08-Jun-1998 17:29 Procedure Note Angel Tejeda M.D. - 12/11/2017For matting of this note might be different from the original. 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 99mTc Neurolite 21.0mCi Electronically signed by: Natasha Tejeda MD 08-Jun-1998 17:29 Mega Hall M.D. [facility] PROCEDURES IR Cerebral Artery Temporary Balloon Occlusion [...] balloon) Electronically signed by: Natasha Graham MD. 08-Jun-1998 15: 08 Mega Hall M.D. IMG [...] face pain ORIGINAL REPORT - 08-Jun-1998 13:56:00 ([id number]) ??Head CT with contrast perfo rmed after [...] Electronically signed by: ?? Natasha Graham MD. ??08-Jun-1998 1 3:56 Procedure Note Angel Graham M.D. - 12/11/2017For matting of this note might be different from the original. 08-Jun-1998 12:49:00 Exam: CT PF/Sella/O rbit wo Indications: left face pain ORIGINAL REPORT - 08-Jun-1998 13:56:00 ([id number]) Head CT with contrast perform ed after [...]
--- OUTSIDE RECORDS SUMMARY | 2022-06-10 13:03 | XMS_ITS ---
:1960 Author Organization [facility] Address [address] [place] [address] Care Team Providers Name Role Phone Ivana Kuhn Unavailable Unavailable PROBLEMS Unknown Problems ALLERGIES No Information IMMUNIZATIONS No Known Immunizations SOCIAL HISTORY No smoking Hx information available REASON FOR REFERRAL FUNCTIONAL STATUS PLAN OF CARE VITAL SIGNS MEDICATIONS Unknown Medications PROCEDURES No Known procedures RESULTS No Results REASON FOR VISIT Insurance Providers
[2022-06-10 15:26] LABS: Chloride* 107 mmol/L (96-114)
[2022-06-10 15:27] LABS: Potassium* 5.5 mmol/L (3.6-5.1); Sodium* 136 mmol/L (135-149)
[2022-06-10 15:29] LABS: Creatinine* 0.7 mg/dL (0.5-1.5); Estimated Glomerular Filt Rate 99 ml/min
[2022-06-10 15:30] LABS: Blood Urea Nitrogen* 23 mg/dL (7-30); Carbon Dioxide* 21 mmol/L (20-32); Glucose* 203 mg/dL (60-115)
[2022-06-10 16:19] LABS: Vitamin B12* 647 pg/mL (243-894)
[2022-06-10 16:46] LABS: Hemoglobin A1C* 9.24 % (0-5.6)
[2022-06-10 16:55] LABS: Free T4 Free Thyroxine* 0.91 ng/dL (0.70-1.85)
[2022-06-14 16:52] LABS: Folate, Serum 17.7 ng/mL (>=5.9)
[2022-06-17 18:17] LABS: Vitamin B1, Whole Blood 258 nmol/L (70-180)
== END 2022-06-10 12:52 | disposition home or self-care (01) ==
LOC: LAB 12:55
PROVIDERS: Visit Provider Internal Medicine
DX: E13.9 Other specified diabetes mellitus without complications (principal); D64.9 Anemia, unspecified; E23.0 Hypopituitarism; E46 Unspecified protein-calorie malnutrition; R53.1 Weakness; R26.9 Unspecified abnormalities of gait and mobility; Z86.73 Personal history of transient ischemic attack (TIA), and cerebral infarction without residual deficits
CPT/HCPCS: 36415; 80048; 82607; 82746; 83036; 84425; 84439

== ENCOUNTER 2022-07-10 15:32 | Outpatient (CLI) | payer OTHER, SELFPAY ==
[2022-07-13 12:45] LABS: Chloride* 99 mmol/L (96-114); Glucose* 370 mg/dL (60-115); Potassium* 3.9 mmol/L (3.6-5.1); Sodium* 136 mmol/L (135-149)
[2022-07-13 12:46] LABS: Blood Urea Nitrogen* 18 mg/dL (7-30); Calcium* 8.6 mg/dL (8.4-10.6); Carbon Dioxide* 26 mmol/L (20-32); Creatinine* 0.7 mg/dL (0.5-1.5); Estimated Glomerular Filt Rate 99 ml/min
== END 2022-07-10 15:33 | disposition home or self-care (01) ==
LOC: LAB 15:35
PROVIDERS: Visit Provider Family Medicine
DX: D64.9 Anemia, unspecified (principal); E23.0 Hypopituitarism; E11.9 Type 2 diabetes mellitus without complications
CPT/HCPCS: 36415; 80048; 87040

== ENCOUNTER 2022-08-22 12:30 | Outpatient (RCR) | payer OTHER, MEDICARE, MEDICAID, SELFPAY | END 2022-12-02 12:00 | disposition home or self-care (01) | PROVIDERS: Visit Provider Student in an Organized Health Care Education/Training Program | DX: I69.321 Dysphasia following cerebral infarction; Z51.89 Encounter for other specified aftercare | CPT/HCPCS: 92507; 92523; 97110; 97116; 97162; 97165; 97530; 97535; X5282 ==